=== PATIENT | female | born 1985 | race Caucasian/White ===

== ENCOUNTER 2017-01-27 11:09 | Emergency (ER) | payer SELFPAY ==
--- NOTE | 2017-01-27 12:00 | XRay Report ---
AP CHEST: HISTORY: Shortness of breath Limited exam with poor penetration. AP view of the chest demonstrates a normal mediastinal and cardiac contour with clear lungs and normal bony and soft tissue structures. IMPRESSION: Unremarkable AP chest.
[2017-01-27 12:07] LABS: Basophils % (Auto) 0.5 % (0.0-1.8); Eosinophils % (Auto) 1.9 % (0.0-4.3); Hematocrit 34.2 % (30.3-42.9); Hemoglobin 10.7 gm/dl (10.1-14.3); Mean Corpuscular HGB Conc 31 % (30-34); Mean Corpuscular Volume 73 fl (79-97); Platelet Count 308 K/mm3 (140-440); Red Blood Count 4.69 M/mm3 (3.65-5.03); Red Cell Distribution Width 18.7 % (13.2-15.2)
[2017-01-27 12:15] LABS: Anion Gap 17 mmol/L; Blood Urea Nitrogen 9 mg/dL (7-17); Calcium 8.8 mg/dL (8.4-10.2); Carbon Dioxide 26 mmol/L (22-30); Chloride 99.1 mmol/L (98-107); Glucose 117 mg/dL (65-100); Sodium 138 mmol/L (137-145)
[2017-01-27 12:19] LABS: Mean Corpuscular Hemoglobin 23 pg (28-32)
[2017-01-27] MEDS ORDERED: ASPIRIN PO ONE (12:20)
--- NOTE | 2017-01-27 12:20 | Emergency Department Report ---
ED Chest Pain HPI - General Chief Complaint: Chest Pain Stated Complaint: CHEST PAIN /ASTHMA Time Seen by Provider: 01/27/17 11:58 Source: patient Mode of arrival: Ambulatory Limitations: No Limitations - History of Present Illness MD Complaint: chest pain -: Gradual Onset: during rest Pain Location: right chest Severity: mild Severity scale (0 -10): 6 Quality: aching Consistency: intermittent Improves With: nothing, movement Worsens With: movement Context: other re: dyspnea Treatments Prior to Arrival: none Aspirin use within the Past 7 Days: (0) No - Related Data Previous Rx's Medication Instructions Recorded Last Taken Type ALBUTEROL NEB's [Proventil 0.083% 2.5 mg PO Q6HR PRN #90 nebu 01/27/17 Unknown Rx NEBS] Aspirin [Aspirin TAB] 325 mg PO ONCE #30 tablet 01/27/17 Unknown Rx Hydrochlorothiazide [HCTZ] 25 mg PO QDAY #30 tablet 01/27/17 Unknown Rx Allergies Allergy/AdvReac Type Severity Reaction Status Date / Time No Known Allergies Allergy Unverified 01/27/17 11:17 Heart Score - HEART Score History: Slightly suspicious EKG: Non-specific Age: < 45 Risk factors: 1-2 risk factors Troponin: < normal limit HEART Score: 2 - Critical Actions Critical Actions: 0-3 pts:0.9-1.7%risk of adverse cardiac event.Candidate for discharge ED Review of Systems ROS: Stated complaint: CHEST PAIN /ASTHMA Other details as noted in HPI Constitutional: no symptoms reported Respiratory: shortness of breath, wheezing Cardiovascular: chest pain ED Past Medical Hx - Past Medical History Previous Medical History?: Yes Hx Asthma: Yes Additional medical history: Morbid obesity - Surgical History Past Surgical History?: No - Social History Smoking Status: Never Smoker Substance Use Type: Alcohol, Non Opiate Pain, Prescribed - Medications Home Medications: Home Medications Medication Instructions Recorded Confirmed Last Taken Type ALBUTEROL NEB's [Proventil 0.083% 2.5 mg PO Q6HR PRN #90 nebu 01/27/17 Unknown Rx NEBS] Aspirin [Aspirin TAB] 325 mg PO ONCE #30 tablet 01/27/17 Unknown Rx Hydrochlorothiazide [HCTZ] 25 mg PO QDAY #30 tablet 01/27/17 Unknown Rx ED Physical Exam - General Limitations: No Limitations General appearance: alert - Head Head exam: Present: atraumatic - Eye Eye exam: Present: normal appearance - ENT ENT exam: Present: normal exam, normal orophraynx, mucous membranes dry, mucous membranes moist - Neck Neck exam: Present: normal inspection - Respiratory Respiratory exam: Present: normal lung sounds bilaterally - Cardiovascular Cardiovascular Exam: Present: regular rate, normal rhythm - GI/Abdominal GI/Abdominal exam: Present: soft, normal bowel sounds - Back Exam Back exam: Present: normal inspection - Neurological Exam Neurological exam: Present: alert, altered, oriented X3 - Psychiatric Psychiatric exam: Present: normal affect, normal mood - Skin Skin exam: Present: warm, dry ED Course Vital Signs 01/27/17 01/27/17 01/27/17 11:17 11:23 11:31 Temperature 98.5 F Pulse Rate 96 H 84 102 H Respiratory 26 H 31 H 19 Rate Blood Pressure 194/110 151/98 Blood Pressure [Left] Blood Pressure [Right] O2 Sat by Pulse 94 96 Oximetry 01/27/17 01/27/17 01/27/17 11:41 11:46 11:54 Temperature 98.4 F Pulse Rate 100 H 95 H Respiratory 29 H 16 12 Rate Blood Pressure 149/89 Blood Pressure 151/90 151/90 [Left] Blood Pressure 149/89 [Right] O2 Sat by Pulse 96 100 97 Oximetry 01/27/17 01/27/17 01/27/17 11:55 12:08 14:16 Temperature 98.1 F 98.4 F Pulse Rate 88 88 Respiratory 18 16 18 Rate Blood Pressure Blood Pressure [Left] Blood Pressure 138/74 139/87 [Right] O2 Sat by Pulse 96 99 97 Oximetry ED Medical Decision Making - Lab Data Result diagrams: 01/27/17 11:44 01/27/17 11:44 Critical care attestation.: If time is entered above; I have spent that time in minutes in the direct care of this critically ill patient, excluding procedure time. ED Disposition Clinical Impression: Chest pain not due to acute coronary syndrome, Asthma Disposition: - TO HOME OR SELFCARE Is pt being admited?: No Does the pt Need Aspirin: No Condition: Stable Instructions: Chest Pain (ED), Asthma (ED) Prescriptions: ALBUTEROL NEB's [Proventil 0.083% NEBS] 2.5 mg PO Q6HR PRN #90 nebu PRN Reason: Wheezing Aspirin [Aspirin TAB] 325 mg PO ONCE #30 tablet Hydrochlorothiazide [HCTZ] 25 mg PO QDAY #30 tablet Referrals: PRIMARY CARE,MD [Primary Care Provider] - 3-5 Days Forms: Work/School Release Form(ED)
[2017-01-27] MEDS ORDERED: PROVENTIL IH ONE (14:22)
[2017-01-27 15:16] VITALS: BP 137/84
--- NOTE | 2017-01-28 11:56 | Vascular Lab Report ---
LOWER EXTREMITY VENOUS DUPLEX: REASON FOR EXAM: Shortness of breath/chest pain. COMMENTS ON THE RIGHT: All veins visualized are freely compressible without evidence of internal echogenicity. Flow is spontaneous and phasic throughout. COMMENTS ON THE LEFT: All veins visualized are freely compressible without evidence of internal echogenicity. Flow is spontaneous and phasic throughout. IMPRESSION: No evidence of acute or chronic deep venous thrombosis in either lower extremity.
== END 2017-01-27 15:12 | disposition home or self-care (01) ==
LOC: ED 11:09
DX: R07.9 Chest pain, unspecified (principal); J45.909 Unspecified asthma, uncomplicated; E66.01 Morbid (severe) obesity due to excess calories
CPT/HCPCS: 36415; 71010; 80048; 83880; 84484; 85025; 93005; 93010; 93970; 94640; 99284

== ENCOUNTER 2017-04-25 09:41 | Emergency (ER) | payer OTHER ==
[2017-04-25 10:21] LABS: Basophils % (Auto) 0.2 % (0.0-1.8); Eosinophils % (Auto) 2.7 % (0.0-4.3); Hematocrit 36.9 % (30.3-42.9); Hemoglobin 11.6 gm/dl (10.1-14.3); Mean Corpuscular HGB Conc 31 % (30-34); Mean Corpuscular Hemoglobin 22 pg (28-32); Mean Corpuscular Volume 70 fl (79-97); Platelet Count 287 K/mm3 (140-440); Red Blood Count 5.27 M/mm3 (3.65-5.03); Red Cell Distribution Width 19.4 % (13.2-15.2); White Blood Count 9.5 K/mm3 (4.5-11.0)
[2017-04-25] MEDS ORDERED: DELTASONE PO ONE (10:29)
[2017-04-25] MEDS ORDERED: PROVENTIL IH ONE ×2 (10:29→13:09)
[2017-04-25] MEDS ORDERED: ATROVENT IH ONE (10:29)
--- NOTE | 2017-04-25 10:31 | Emergency Department Report ---
HPI - General Chief Complaint: Dyspnea/Respdistress Time Seen by Provider: 04/25/17 10:14 - HPI HPI: This is a 31-year-old -[place] female presents to the emergency department, being brought in by her significant other, with a complaint of a 2- 3 day history of "it's my asthma." She feels that whenever there is a weather change that is what affects her asthma. She complains of some wheezing, shortness of breath and a mixed dry and productive cough over the past few days , over the weekend. She tried her albuterol nebulized treatments did not feel like she was giving sufficient relief. She denies any chest pain, fever, back pain, nausea, vomiting or diaphoresis. She denies any tobacco use or illicit drug abuse. No recent travel or sick contacts at home. She does not have a primary care physician. ED Past Medical Hx - Past Medical History Hx Asthma: Yes - Surgical History Past Surgical History?: No - Social History Smoking Status: Never Smoker Substance Use Type: None - Medications Home Medications: Home Medications Medication Instructions Recorded Confirmed Last Taken Type ALBUTEROL Inhaler [ProAir HFA 2 puff IH QID PRN #1 inhalation 04/25/17 Unknown Rx Inhaler] ALBUTEROL NEB's [Proventil 0.083% 2.5 mg IH Q4H PRN #1 box 04/25/17 Unknown Rx NEBS] predniSONE [Deltasone] 20 mg PO BID #10 tab 04/25/17 Unknown Rx ED Review of Systems ROS: Stated complaint: SOB Other details as noted in HPI Comment: All other systems reviewed and negative Constitutional: denies: chills, fever Eyes: denies: eye pain, eye discharge, vision change ENT: denies: ear pain, throat pain Respiratory: cough, shortness of breath, wheezing Cardiovascular: denies: chest pain, palpitations Gastrointestinal: denies: abdominal pain, nausea, diarrhea Genitourinary: denies: urgency, dysuria, discharge Musculoskeletal: denies: back pain, joint swelling, arthralgia Skin: denies: rash, lesions Neurological: denies: headache, weakness, paresthesias Physical Exam - Physical Exam Vital Signs: Vital Signs 04/25/17 09:47 Temperature 97.9 F Pulse Rate 90 Respiratory 22 Rate Blood Pressure 144/109 O2 Sat by Pulse 94 Oximetry Physical Exam: GENERAL: The patient is well-developed well-nourished. HENT: Normocephalic. Atraumatic. Patient has moist mucous membranes. EYES: Extraocular motions are intact. Pupils equal reactive to light bilaterally. NECK: Supple. Trachea is midline. CHEST/LUNGS: Moderate wheezing throughout the chest. No tachypnea or accessory muscle use. No cough heard during examination. There is no respiratory distress noted. HEART/CARDIOVASCULAR: Regular. There is no tachycardia. There is no gallop rub or murmur. ABDOMEN: Abdomen is soft, nontender. Patient has normal bowel sounds. There is no abdominal distention. Morbidly obese habitus. SKIN: Skin is warm and dry. NEURO: The patient is awake, alert, and oriented. The patient is cooperative. The patient has no focal neurologic deficits. The patient has normal speech. MUSCULOSKELETAL: There is no tenderness or deformity. There is no limitation range of motion. There is no evidence of acute injury. ED Course Vital Signs 04/25/17 09:47 Temperature 97.9 F Pulse Rate 90 Respiratory 22 Rate Blood Pressure 144/109 O2 Sat by Pulse 94 Oximetry ED Medical Decision Making - Lab Data Result diagrams: 04/25/17 09:56 04/25/17 09:56 - Radiology Data Radiology results: image reviewed interpreted by me: Chest x-ray does not show any acute process. There are no pleural effusions, obvious pneumonia and there is no pneumothorax. - Medical Decision Making 31 year female presents with a few days of shortness breath, cough and wheezing that she believes is her asthma. She does have moderate wheezing and bronchospasm when she first arrived. She was given a few different breathing treatments, steroids and prior to discharge she appears much improved. Chest x- ray did not show any pneumonia, pleural effusions or any acute process. Labs are unremarkable. Vital signs stable throughout her ED course including being afebrile and no hypoxia. She was discharged home with steroids, refill of her albuterol and referral to primary care. She will return to the ER with any worsening of her symptoms or any acute distress. - Differential Diagnosis asthma, COPD, pneumonia, CHF Critical Care Time: No Critical care attestation.: If time is entered above; I have spent that time in minutes in the direct care of this critically ill patient, excluding procedure time. ED Disposition Clinical Impression: Bronchospasm Asthma exacerbation Qualifiers: Asthma severity: unspecified severity Asthma persistence: unspecified Qualified Code(s): J45.901 - Unspecified asthma with (acute) exacerbation Disposition: DC- TO HOME OR SELFCARE Is pt being admited?: No Condition: Stable Instructions: Asthma (ED), Bronchospasm (ED) Additional Instructions: Please follow up with a primary care physician in the next few days. Return to the emergency Department with any worsening of your symptoms or any acute distress. Prescriptions: ALBUTEROL Inhaler [ProAir HFA Inhaler] 2 puff IH QID PRN #1 inhalation PRN Reason: Shortness Of Breath ALBUTEROL NEB's [Proventil 0.083% NEBS] 2.5 mg IH Q4H PRN #1 box PRN Reason: Wheezing predniSONE [Deltasone] 20 mg PO BID #10 tab Referrals: PRIMARY CAREMD [Primary Care Provider] - 3-5 Days VICKIE CORTES MD [Staff Physician] - 3-5 Days [facility] [Outside] - 3-5 Days [facility] [Outside] - 3-5 Days Time of Disposition: 15:18
--- NOTE | 2017-04-25 10:43 | XRay Report ---
ROUTINE CHEST, TWO VIEWS: HISTORY: Shortness of breath. The trachea, heart, mediastinal contour, lung wynne and bony thorax are unremarkable. IMPRESSION: Unremarkable chest x-ray.
[2017-04-25 10:48] LABS: Anion Gap 19 mmol/L; BUN/Creatinine Ratio 22; Blood Urea Nitrogen 11 mg/dL (7-17); Calcium 9.4 mg/dL (8.4-10.2); Carbon Dioxide 27 mmol/L (22-30); Chloride 98.1 mmol/L (98-107); Glucose 113 mg/dL (65-100); Potassium 4.9 mmol/L (3.6-5.0); Sodium 139 mmol/L (137-145)
[2017-04-25] MEDS ORDERED: NORCO 5/325 PO ONE (14:06)
[2017-04-25 15:34] VITALS: BP 138/88
== END 2017-04-25 15:33 | disposition home or self-care (01) ==
LOC: ED 09:41 → MERGE 09:41 → ED 15:34
DX: J45.901 Unspecified asthma with (acute) exacerbation (principal)
CPT/HCPCS: 36415; 71020; 80048; 84484; 84703; 85025; 94640; 99284; J7512

== ENCOUNTER 2017-06-25 12:41 | Inpatient (IN) | payer SELFPAY ==
[2017-06-25] MEDS: DUONEB *Not for PRN Use IH SCH ×2 (13:15→21:27)
[2017-06-25] MEDS ORDERED: PROVENTIL IH PRN ×2 (13:17→21:37)
[2017-06-25 13:29] LABS: Hematocrit 36.1 % (30.3-42.9); Hemoglobin 11.2 gm/dl (10.1-14.3); Mean Corpuscular HGB Conc 31 % (30-34); Mean Corpuscular Volume 71 fl (79-97); Platelet Count 246 K/mm3 (140-440); Red Blood Count 5.11 M/mm3 (3.65-5.03); Red Cell Distribution Width 19.3 % (13.2-15.2); White Blood Count 10.3 K/mm3 (4.5-11.0)
[2017-06-25 13:37] LABS: Mean Corpuscular Hemoglobin 22 pg (28-32)
[2017-06-25 14:11] LABS: Anion Gap 19 mmol/L; BUN/Creatinine Ratio 18; Blood Urea Nitrogen 9 mg/dL (7-17); Calcium 8.4 mg/dL (8.4-10.2); Carbon Dioxide 26 mmol/L (22-30); Glucose 134 mg/dL (65-100); Potassium 4.5 mmol/L (3.6-5.0); Sodium 138 mmol/L (137-145)
[2017-06-25] MEDS ORDERED: MAGNESIUM SULFATE 2GM/50ML 2 GM/50 ML BAG IV ONE ×2 (15:14→18:00)
[2017-06-25 15:26] LABS: Anisocytosis 1+; Basophils % (Manual) 0 % (0.0-1.8); Blastocytes % (Manual) 0 %; Eosinophils % (Manual) 0 % (0.0-4.3); Hypochromasia 2+; Large Platelets 1+; Ovalocytes 1+; Platelet Estimate Consistent w Auto
[2017-06-25 15:27] LABS: Diff Status Complete
[2017-06-25] MEDS ORDERED: ROCEPHIN/NS 1 GM/50 ML 1 GM/50 ML BAG IV ONE (15:46)
[2017-06-25] MEDS ORDERED: XOPENEX IH ONE (16:19)
--- NOTE | 2017-06-25 16:21 | Emergency Department Report ---
ED Shortness of Breath HPI - General Chief Complaint: Dyspnea/Respdistress Stated Complaint: ASTHMA/CP/SOB Time Seen by Provider: 06/25/17 14:56 Source: patient Mode of arrival: Wheelchair Limitations: No Limitations - History of Present Illness Initial Comments: 31-year-old female with a past medical history of asthma and obesity presents to the hospital complaints of cough, fever, shortness of breath and wheezing 4 days which acutely worsened just today. No improvement with nebulized treatments. Positive generalized body aches and chest pain associated with coughing that is moderate in intensity. Symptoms with exertion with no alleviating factors - Related Data Previous Rx's Medication Instructions Recorded Last Taken Type ALBUTEROL NEB's [Proventil 0.083% 2.5 mg PO Q6HR PRN #90 nebu 01/27/17 Unknown Rx NEBS] Aspirin [Aspirin TAB] 325 mg PO ONCE #30 tablet 01/27/17 Unknown Rx Hydrochlorothiazide [HCTZ] 25 mg PO QDAY #30 tablet 01/27/17 Unknown Rx ALBUTEROL Inhaler [ProAir HFA 2 puff IH QID PRN #1 inhalation 04/25/17 Unknown Rx Inhaler] ALBUTEROL NEB's [Proventil 0.083% 2.5 mg IH Q4H PRN #1 box 04/25/17 Unknown Rx NEBS] predniSONE [Deltasone] 20 mg PO BID #10 tab 04/25/17 Unknown Rx Allergies Allergy/AdvReac Type Severity Reaction Status Date / Time No Known Allergies Allergy Unverified 01/27/17 11:17 ED Review of Systems ROS: Stated complaint: ASTHMA/CP/SOB Other details as noted in HPI Comment: All other systems reviewed and negative Other: Constitutional: As per HPI Eyes: No eye pain visual changes or discharge ENT: No ear pain or throat pain Neck: Denies pain Respiratory: As per HPI Cardiovascular: Denies syncope GI: Denies abdominal pain, nausea, vomiting, diarrhea : Denies dysuria Musculoskeletal: Denies back pain, joint swelling Skin: Denies rash, lesions, erythema Neurologic: Denies headache, numbness, weakness Psychiatric: Denies suicidal ideation, hallucinations ED Past Medical Hx - Past Medical History Hx Asthma: Yes Additional medical history: Morbid obesity - Social History Smoking Status: Never Smoker Substance Use Type: None - Medications Home Medications: Home Medications Medication Instructions Recorded Confirmed Last Taken Type ALBUTEROL NEB's [Proventil 0.083% 2.5 mg PO Q6HR PRN #90 nebu 01/27/17 Unknown Rx NEBS] Aspirin [Aspirin TAB] 325 mg PO ONCE #30 tablet 01/27/17 Unknown Rx Hydrochlorothiazide [HCTZ] 25 mg PO QDAY #30 tablet 01/27/17 Unknown Rx ALBUTEROL Inhaler [ProAir HFA 2 puff IH QID PRN #1 inhalation 04/25/17 Unknown Rx Inhaler] ALBUTEROL NEB's [Proventil 0.083% 2.5 mg IH Q4H PRN #1 box 04/25/17 Unknown Rx NEBS] predniSONE [Deltasone] 20 mg PO BID #10 tab 04/25/17 Unknown Rx ED Physical Exam - General Limitations: No Limitations - Other Other exam information: General: No limitations, patient is alert in no acute distress Head exam: Atraumatic, normocephalic Eyes exam: Normal appearance ENT: Moist mucous membrane, normal oropharynx Neck exam: Normal inspection, full range of motion Respiratory exam: Bilateral wheezing, accessory muscle use, positive tachypnea Cardiovascular: Tachycardic regular rhythm Abdomen: Soft, nondistended, and nontender, with normal bowel sounds, no rebound, or guarding Extremity: Full range of motion normal inspection no deformity, and Back: Normal Inspection, full range of motion, no tenderness Neurologic: Alert, oriented x3, cranial nerves intact, no motor or sensory deficit Psychiatric: normal affect, normal mood Skin: Warm, dry, intact ED Course Vital Signs 06/25/17 06/25/17 06/25/17 12:58 13:00 13:15 Temperature 97.8 F 97.8 F Pulse Rate 123 H Pulse Rate [ 111 H Anterior Bilateral Throughout] Respiratory 22 Rate Respiratory 22 Rate [Anterior Bilateral Throughout] Blood Pressure 135/84 [Right] O2 Sat by Pulse 82 L Oximetry 06/25/17 06/25/17 06/25/17 13:25 13:40 14:05 Temperature Pulse Rate Pulse Rate [ 108 H 108 H 105 H Anterior Bilateral Throughout] Respiratory Rate Respiratory 20 20 18 Rate [Anterior Bilateral Throughout] Blood Pressure [Right] O2 Sat by Pulse Oximetry 06/25/17 06/25/17 16:20 16:35 Temperature Pulse Rate Pulse Rate [ 106 H 107 H Anterior Bilateral Throughout] Respiratory Rate Respiratory 18 18 Rate [Anterior Bilateral Throughout] Blood Pressure [Right] O2 Sat by Pulse Oximetry - Reevaluation(s) Reevaluation #1: 06/25/17 Patient received multiple nebs, albuterol, and Solu-Medrol in the ED without improvement. IV antibiotics initiated for possible infiltrate - ABG Interpretation Ph: 7.36 PCO2: 49 PO2: 66 Bicarbonate: 28 Interpretation: other (hypoxia) Additional Comments: ABG performed on 4 L nasal cannula ED Medical Decision Making - Lab Data Result diagrams: 06/25/17 13:11 06/25/17 13:11 Lab Results 06/25/17 06/25/17 06/25/17 Range/Units 13:11 13:11 15:45 WBC 10.3 (4.5-11.0) K/mm3 RBC 5.11 H (3.65-5.03) M/mm3 Hgb 11.2 (10.1-14.3) gm/dl Hct 36.1 (30.3-42.9) % MCV 71 L (79-97) fl MCH 22 L (28-32) pg MCHC 31 (30-34) % RDW 19.3 H (13.2-15.2) % Plt Count 246 (140-440) K/mm3 Add Manual Diff Complete Total Counted 100 Seg Neuts % (Manual) 78.0 H (40.0-70.0) % Band Neutrophils % 0 % Lymphocytes % (Manual) 15.0 (13.4-35.0) % Reactive Lymphs % (Man) 0 % Monocytes % (Manual) 7.0 (0.0-7.3) % Eosinophils % (Manual) 0 (0.0-4.3) % Basophils % (Manual) 0 (0.0-1.8) % Metamyelocytes % 0 % Myelocytes % 0 % Promyelocytes % 0 % Blast Cells % 0 % Nucleated RBC % Not Reportable Seg Neutrophils # Man 8.0 H (1.8-7.7) K/mm3 Band Neutrophils # 0.0 K/mm3 Lymphocytes # (Manual) 1.5 (1.2-5.4) K/mm3 Abs React Lymphs (Man) 0.0 K/mm3 Monocytes # (Manual) 0.7 (0.0-0.8) K/mm3 Eosinophils # (Manual) 0.0 (0.0-0.4) K/mm3 Basophils # (Manual) 0.0 (0.0-0.1) K/mm3 Metamyelocytes # 0.0 K/mm3 Myelocytes # 0.0 K/mm3 Promyelocytes # 0.0 K/mm3 Blast Cells # 0.0 K/mm3 WBC Morphology Not Reportable Hypersegmented Neuts Not Reportable Hyposegmented Neuts Not Reportable Hypogranular Neuts Not Reportable Smudge Cells Not Reportable Toxic Granulation Not Reportable Toxic Vacuolation Not Reportable Dohle Bodies Not Reportable Pelger-Huet Anomaly Not Reportable Ana Cristina Rods Not Reportable Platelet Estimate Consistent w auto Clumped Platelets Not Reportable Plt Clumps, EDTA Not Reportable Large Platelets 1+ Giant Platelets Not Reportable Platelet Satelliting Not Reportable Plt Morphology Comment Not Reportable RBC Morphology Not Reportable Dimorphic RBCs Not Reportable Polychromasia Not Reportable Hypochromasia 2+ Poikilocytosis Not Reportable Anisocytosis 1+ Microcytosis Not Reportable Macrocytosis Not Reportable Spherocytes Not Reportable Pappenheimer Bodies Not Reportable Sickle Cells Not Reportable Target Cells Not Reportable Tear Drop Cells Not Reportable Ovalocytes 1+ Helmet Cells Not Reportable [place] Bodies Not Reportable [place] Rings Not Reportable [place] Cells Not Reportable Bite Cells Not Reportable Crenated Cell Not Reportable Elliptocytes Not Reportable Acanthocytes (Spur) Not Reportable Rouleaux Not Reportable Hemoglobin C Crystals Not Reportable Schistocytes Not Reportable Malaria parasites Not Reportable Tyshawn Bodies Not Reportable Hem Pathologist Commnt No POC ABG pH (7.35-7.45) POC ABG pCO2 (35-45) POC ABG pO2 (80-105) POC ABG HCO3 POC ABG Total CO2 POC ABG O2 Sat POC ABG Base Excess FiO2 % Sodium 138 (137-145) mmol/L Potassium 4.5 (3.6-5.0) mmol/L Chloride 98.0 (98-107) mmol/L Carbon Dioxide 26 (22-30) mmol/L Anion Gap 19 mmol/L BUN 9 (7-17) mg/dL Creatinine 0.5 L (0.7-1.2) mg/dL Estimated GFR > 60 ml/min BUN/Creatinine Ratio 18 % Glucose 134 H (65-100) mg/dL Calcium 8.4 (8.4-10.2) mg/dL NT-Pro-B Natriuret Pep 1693 H (0-450) pg/mL Urine Color (Yellow) Urine Turbidity (Clear) Urine pH (5.0-7.0) Ur Specific [place] (1.003-1.030) Urine Protein (Negative) mg/dL Urine Glucose (UA) (Negative) mg/dL Urine Ketones (Negative) mg/dL Urine Blood (Negative) Urine Nitrite (Negative) Ur Reducing Substances Urine Bilirubin (Negative) Urine Ictotest Urine Urobilinogen (<2.0) mg/dL Ur Leukocyte Esterase (Negative) Urine WBC (Auto) (0.0-6.0) /HPF Urine RBC (Auto) (0.0-6.0) /HPF U Epithel Cells (Auto) (0-13.0) /HPF Urine HCG, Qual (Negative) 06/25/17 06/25/17 Range/Units 16:00 16:19 WBC (4.5-11.0) K/mm3 RBC (3.65-5.03) M/mm3 Hgb (10.1-14.3) gm/dl Hct (30.3-42.9) % MCV (79-97) fl MCH (28-32) pg MCHC (30-34) % RDW (13.2-15.2) % Plt Count (140-440) K/mm3 Add Manual Diff Total Counted Seg Neuts % (Manual) (40.0-70.0) % Band Neutrophils % % Lymphocytes % (Manual) (13.4-35.0) % Reactive Lymphs % (Man) % Monocytes % (Manual) (0.0-7.3) % Eosinophils % (Manual) (0.0-4.3) % Basophils % (Manual) (0.0-1.8) % Metamyelocytes % % Myelocytes % % Promyelocytes % % Blast Cells % % Nucleated RBC % Seg Neutrophils # Man (1.8-7.7) K/mm3 Band Neutrophils # K/mm3 Lymphocytes # (Manual) (1.2-5.4) K/mm3 Abs React Lymphs (Man) K/mm3 Monocytes # (Manual) (0.0-0.8) K/mm3 Eosinophils # (Manual) (0.0-0.4) K/mm3 Basophils # (Manual) (0.0-0.1) K/mm3 Metamyelocytes # K/mm3 Myelocytes # K/mm3 Promyelocytes # K/mm3 Blast Cells # K/mm3 WBC Morphology Hypersegmented Neuts Hyposegmented Neuts Hypogranular Neuts Smudge Cells Toxic Granulation Toxic Vacuolation Dohle Bodies Pelger-Huet Anomaly Ana Cristina Rods Platelet Estimate Clumped Platelets Plt Clumps, EDTA Large Platelets Giant Platelets Platelet Satelliting Plt Morphology Comment RBC Morphology Dimorphic RBCs Polychromasia Hypochromasia Poikilocytosis Anisocytosis Microcytosis Macrocytosis Spherocytes Pappenheimer Bodies Sickle Cells Target Cells Tear Drop Cells Ovalocytes Helmet Cells [place] Bodies [place] Rings [place] Cells Bite Cells Crenated Cell Elliptocytes Acanthocytes (Spur) Rouleaux Hemoglobin C Crystals Schistocytes Malaria parasites Tyshawn Bodies Hem Pathologist Commnt POC ABG pH 7.365 (7.35-7.45) POC ABG pCO2 49.9 H (35-45) POC ABG pO2 66 L (80-105) POC ABG HCO3 28.5 POC ABG Total CO2 30 POC ABG O2 Sat 92 POC ABG Base Excess 3 FiO2 4 % Sodium (137-145) mmol/L Potassium (3.6-5.0) mmol/L Chloride (98-107) mmol/L Carbon Dioxide (22-30) mmol/L Anion Gap mmol/L BUN (7-17) mg/dL Creatinine (0.7-1.2) mg/dL Estimated GFR ml/min BUN/Creatinine Ratio % Glucose (65-100) mg/dL Calcium (8.4-10.2) mg/dL NT-Pro-B Natriuret Pep (0-450) pg/mL Urine Color Straw (Yellow) Urine Turbidity Clear (Clear) Urine pH 6.0 (5.0-7.0) Ur Specific [place] 1.001 L (1.003-1.030) Urine Protein <15 mg/dl (Negative) mg/dL Urine Glucose (UA) Neg (Negative) mg/dL Urine Ketones Neg (Negative) mg/dL Urine Blood Sm (Negative) Urine Nitrite Neg (Negative) Ur Reducing Substances Not Reportable Urine Bilirubin Neg (Negative) Urine Ictotest Not Reportable Urine Urobilinogen < 2.0 (<2.0) mg/dL Ur Leukocyte Esterase Neg (Negative) Urine WBC (Auto) < 1.0 (0.0-6.0) /HPF Urine RBC (Auto) < 1.0 (0.0-6.0) /HPF U Epithel Cells (Auto) < 1.0 (0-13.0) /HPF Urine HCG, Qual Negative (Negative) - EKG Data -: EKG Interpreted by [place] EKG shows normal: sinus rhythm, axis (80), QRS complexes (75), ST-T waves ( inferior and flat lateral T waves) Rate: tachycardia (105) - EKG Data When compared to previous EKG there are: no significant change (compared to ) - Radiology Data Radiology results: report reviewed (chest x-ray read by radiologist: Suspicious for right lung base atelectasis or infiltrate) - Medical Decision Making Patient received treatment in ED for acute asthma exacerbation with associated community-acquired pneumonia. Patient is also hypoxic on room air in ABG was performed on 4 L of oxygen nasal - Differential Diagnosis pneumonia, bronchitis, PE, CHF, asthma Critical Care Time: No Critical care attestation.: If time is entered above; I have spent that time in minutes in the direct care of this critically ill patient, excluding procedure time. ED Disposition Clinical Impression: Pneumonia, Acute asthma, Morbid obesity, Hypoxia Disposition: OP ADMIT IP TO THIS HOSP Is pt being admited?: Yes Condition: Stable Time of Disposition: 16:20 (Dr Levy/hospitalist)
[2017-06-25 16:22] LABS: ISTAT Base Excess 3; ISTAT HCO3 28.5; ISTAT PCO2 49.9 (35-45); ISTAT PH 7.365 (7.35-7.45); ISTAT PO2 66 (80-105); ISTAT SO2 92; ISTAT TCO2 30
--- NOTE | 2017-06-25 16:26 | XRay Report ---
FINAL REPORT PROCEDURE: XR CHEST ROUTINE 2V TECHNIQUE: PA and lateral chest radiographs were obtained. CPT 06950 HISTORY: shortness of breath COMPARISON: No prior studies are available for comparison. FINDINGS: Study is limited by patient body habitus. The lateral view is significantly limited. On the AP view there is asymmetric opacification of the right lung base, which may be related to atelectasis or infiltrate. Cannot exclude a right pleural effusion. The upper lungs are well aerated. No pneumothorax is seen. IMPRESSION: Study is very limited, however findings are suspicious for right lung base atelectasis or infiltrate.
[2017-06-25 16:27] LABS: Bilirubin,Urine NEG (Negative); Blood,Urine SM (Negative); Ketones,Urine NEG (Negative); Leukocyte Esterase,Urine NEG (Negative); Nitrite,Urine NEG (Negative); Protein,Urine <15 mg/dL mg/dL (Negative); RBC,Urine < 1.0 /HPF (0.0-6.0); Urobilinogen,Urine < 2.0 mg/dL (<2.0); WBC,Urine < 1.0 /HPF (0.0-6.0)
[2017-06-25] MEDS ORDERED: ZITHROMAX 500 MG in NACL 0.9% 250ML 250 ML IV ONE (16:46)
[2017-06-25] MEDS: cefTRIAXone 1 GM in NACL 0.9% 20 ML IV ONE ×2 (17:52→18:31)
[2017-06-25] MEDS ORDERED: PROAIR IH PRN (21:37)
--- NOTE | 2017-06-25 21:37 | Event Note ---
Date: 06/25/17 See dictated H/p in reports Acute resp failure Asthma exacerbation Morbid obesity
[2017-06-25] MEDS ORDERED: TYLENOL PO PRN (21:40)
[2017-06-25] MEDS ORDERED: DULCOLAX PR PRN (21:40)
[2017-06-25] MEDS ORDERED: MILK OF MAGNESIA PO PRN (21:40)
[2017-06-25] MEDS ORDERED: PERCOCET 5/325 PO PRN (21:40)
[2017-06-25] MEDS ORDERED: ZOFRAN IV PRN (21:40)
[2017-06-25] MEDS ORDERED: MORPHINE IV PRN (21:40)
[2017-06-25] MEDS ORDERED: ASPIRIN PO SCH (22:00)
[2017-06-25] MEDS ORDERED: ROCEPHIN/NS 2 GM/100 ML 2 GM/100 ML BAG IV SCH (22:00)
[2017-06-25] MEDS: HCTZ PO SCH (23:22)
[2017-06-25] MEDS: PEPCID PO SCH (23:23)
[2017-06-25] MEDS: ZITHROMAX 500 MG in NACL 0.9% 250ML 250 ML IV SCH (23:56)
[2017-06-26] MEDS ORDERED: PROVENTIL IH SCH
[2017-06-26 06:26] LABS: Basophils % (Auto) 0.2 % (0.0-1.8); Mean Corpuscular HGB Conc 31 % (30-34); Mean Corpuscular Hemoglobin 22 pg (28-32); Mean Corpuscular Volume 72 fl (79-97); Platelet Count 291 K/mm3 (140-440); Red Blood Count 5.03 M/mm3 (3.65-5.03); Red Cell Distribution Width 19.5 % (13.2-15.2); White Blood Count 12.3 K/mm3 (4.5-11.0)
[2017-06-26 06:38] LABS: Alanine Aminotransferase 40 units/L (7-56); Albumin 3.8 g/dL (3.9-5); Albumin/Globulin Ratio 0.8 %; Alkaline Phosphatase 77 units/L (35-129); Anion Gap 17 mmol/L; BUN/Creatinine Ratio 20; Blood Urea Nitrogen 8 mg/dL (7-17); Calcium 8.8 mg/dL (8.4-10.2); Carbon Dioxide 29 mmol/L (22-30); Chloride 97.4 mmol/L (98-107); Glucose 158 mg/dL (65-100); Potassium 4.6 mmol/L (3.6-5.0); Sodium 139 mmol/L (137-145); Total Protein 8.6 g/dL (6.3-8.2)
--- NOTE | 2017-06-26 07:27 | History and Physical Report ---
CHIEF COMPLAINT: Persistent shortness of breath for 4 days. HISTORY OF PRESENT ILLNESS: The patient is a 31-year-old -[place] female with history of asthma who has been having persistent wheezing and shortness of breath for the last 4 days. Cough productive of mucoid sputum. The patient also has generalized body aches. Shortness of breath and wheezing not relieved by home nebulizer machine and treatments. The patient also was treated with multiple nebulizer treatments in the ER with no relief. Hence, the patient being admitted. PAST MEDICAL HISTORY: As mentioned asthma. PAST SURGICAL HISTORY: None. SOCIAL HISTORY: Does not smoke. No alcohol. Obesity present. FAMILY HISTORY: Hypertension. CURRENT MEDICATIONS: Albuterol inhaler and nebulizers. Prednisone 20 mg twice a day. Aspirin 325 once a day. Hydrochlorothiazide 325 once a day. REVIEW OF SYSTEMS: Significant for severe wheezing and shortness of breath, not relieved by the regular nebulizer treatments. Otherwise, review of systems negative. A 14-point review of systems done. EMERGENCY ROOM COURSE: The patient was given multiple breathing treatments with no relief. Hence, the patient being admitted. PHYSICAL EXAMINATION: GENERAL: Young female, obese, cooperative during examination. VITAL SIGNS: Blood pressure is 137/95, temperature is 97.5, pulse is 103, respirations 22, sats are 87-95%. HEENT: Unremarkable. NECK: Accessory muscles of respiration are prominent. CHEST AND LUNGS: Bilateral inspiratory rhonchi present. Decreased air entry present. Persistent wheezing present. CARDIOVASCULAR: S1, S2 heard. No gallop, no murmur, no rub. Apical impulse in left fifth intercostal space and midclavicular line. ABDOMEN: Soft and benign. No hepatosplenomegaly. No guarding, no rigidity. Hernial orifices are normal. EXTREMITIES: Good pedal pulses. No pedal edema. CENTRAL NERVOUS SYSTEM: Alert and oriented x 4, nonfocal exam. SKIN: Normal. LABORATORY DATA: White count is 10,300, hemoglobin 11.2, hematocrit is 36.1, platelet count is 246,000. Electrolytes are normal. Sodium is 138 and glucose is slightly high at 134. ABG: pH of 7.365, pCO2 of 49.9, pO2 of 66, bicarbonate of 28.5. BNP 1693. Urine negative. Chest x-ray: RLL infiltrate ASSESSMENT AND PLAN: 1. Acute respiratory failure. The patient had O2 sats of 87% initially. Resolved to some extent after nebulizer treatments and steroids. Continue to treat with nebulizer treatments q. 6 round the clock and q. 3 hours p.r.n., IV Solu-Medrol at 60 mg q.8h. and also IV Levaquin 750 q.24h. 2. Acute asthma exacerbation. As mentioned, continue nebulizer treatments, Solu-Medrol, and Abx 3. RLL Pneumonia on CXR Patient initiated on Rocephin and Zithromax 4. Obesity, counseled. The patient has respiratory distress and hence full counseling was not done. 5. Deep venous thrombosis prophylaxis. Lovenox 40 mg subcutaneous daily. [facility]# [id number] IKER/FORTUNATO RED
[2017-06-26] MEDS: DUONEB *Not for PRN Use IH SCH ×3 (08:02→20:07)
[2017-06-26] MEDS: HCTZ PO SCH (11:00)
[2017-06-26] MEDS: PEPCID PO SCH ×2 (11:01→22:33)
[2017-06-26] MEDS: ZITHROMAX 500 MG in NACL 0.9% 250ML 250 ML IV SCH (11:11)
--- NOTE | 2017-06-26 13:09 | Progress Note ---
Assessment and Plan Assessment and plan: Patient is 31-year-old extremely obese woman BMI 66.2 with sequelae of health conditions such as sleep apnea noncompliant with CPAP, asthma who presents with acute shortness of breath with hypoxia pulse ox 87%. Chest x-ray shows right lower lobe infiltrates. -Acute hypoxic respiratory failure: Treated with oxygen -Acute asthma exacerbation: Treated with IV steroids and nebulizer treatments -Sepsis pneumonia, right lower lobe aspiration type: Treatment IV antibiotics -Extreme obesity BMI 66.2 with obesity hypoventilation syndrome suspected/sleep apnea: Counseling done, she says she is getting insurance next month and will reestablish care with physicians, consult dietitian -DVT prophylaxis: change lovenox to sq heparin due to weight History Interval history: Patient was seen and examined. Follow-up on current diagnosis. Overnight uneventful. Patient denies any chest pain, nausea/vomiting or severe headaches. Imaging, nursing note, chart, labs and old chart reviewed. Discussed with patient. Shortness breath is improved with oxygen. Patient doesn't have insurance so she hasn't seen a physician, she has sleep apnea but she doesn't have a CPAP machine because he has a follow-up because no physician Hospitalist Physical - Physical exam Narrative exam: GEN: Ill-appearing Morbid obese BMI 66.2 NAD, AWAKE, ALERT, ORIENTATED 3 HEENT: NCAT, EOMI, PERRL, OP Clear NECK: supple, no adenopathy, no thyromegaly, no JVD CVS/HEART: RRR, NORMAL S1S2, NO JVD, pulses present bilaterally CHEST/LUNGS: Bilateral rhonchi Symmetrical chest expansion, diminished entry bilaterally GI/Abdomen: soft, NTND, good bowel sounds, no guarding or rebound /Bladder: no suprapubic tenderness, no CVA or paraspinal tenderness EXT/Skin: no c/c/e, no obvious rash MSK: FROM x 4 Neuro: CN 2-12 grossly intact, no new focal deficits Psych: calm - Constitutional Vitals: Temp Pulse Resp BP Pulse Ox 97.6 F 100 H 18 131/36 95 06/26/17 12:20 06/26/17 12:20 06/26/17 12:20 06/26/17 12:20 06/26/17 12:20 Results - Labs CBC & Chem 7: 06/26/17 05:43 06/26/17 05:43 Labs: Laboratory Last Values WBC 12.3 K/mm3 (4.5-11.0) H 06/26/17 05:43 RBC 5.03 M/mm3 (3.65-5.03) 06/26/17 05:43 Hgb 11.0 gm/dl (10.1-14.3) 06/26/17 05:43 Hct 36.0 % (30.3-42.9) 06/26/17 05:43 MCV 72 fl (79-97) L 06/26/17 05:43 MCH 22 pg (28-32) L 06/26/17 05:43 MCHC 31 % (30-34) 06/26/17 05:43 RDW 19.5 % (13.2-15.2) H 06/26/17 05:43 Plt Count 291 K/mm3 (140-440) 06/26/17 05:43 Lymph % (Auto) 10.7 % (13.4-35.0) L 06/26/17 05:43 Hand % (Auto) 3.2 % (0.0-7.3) 06/26/17 05:43 Eos % (Auto) 0.0 % (0.0-4.3) 06/26/17 05:43 Baso % (Auto) 0.2 % (0.0-1.8) 06/26/17 05:43 Lymph # 1.3 K/mm3 (1.2-5.4) 06/26/17 05:43 Hand # 0.4 K/mm3 (0.0-0.8) 06/26/17 05:43 Eos # 0.0 K/mm3 (0.0-0.4) 06/26/17 05:43 Baso # 0.0 K/mm3 (0.0-0.1) 06/26/17 05:43 Add Manual Diff Complete 06/25/17 13:11 Total Counted 100 06/25/17 13:11 Seg Neutrophils % 85.9 % (40.0-70.0) H 06/26/17 05:43 Seg Neuts % (Manual) 78.0 % (40.0-70.0) H 06/25/17 13:11 Band Neutrophils % 0 % 06/25/17 13:11 Lymphocytes % (Manual) 15.0 % (13.4-35.0) 06/25/17 13:11 Reactive Lymphs % (Man) 0 % 06/25/17 13:11 Monocytes % (Manual) 7.0 % (0.0-7.3) 06/25/17 13:11 Eosinophils % (Manual) 0 % (0.0-4.3) 06/25/17 13:11 Basophils % (Manual) 0 % (0.0-1.8) 06/25/17 13:11 Metamyelocytes % 0 % 06/25/17 13:11 Myelocytes % 0 % 06/25/17 13:11 Promyelocytes % 0 % 06/25/17 13:11 Blast Cells % 0 % 06/25/17 13:11 Nucleated RBC % Not Reportable 06/25/17 13:11 Seg Neutrophils # 10.6 K/mm3 (1.8-7.7) H 06/26/17 05:43 Seg Neutrophils # Man 8.0 K/mm3 (1.8-7.7) H 06/25/17 13:11 Band Neutrophils # 0.0 K/mm3 06/25/17 13:11 Lymphocytes # (Manual) 1.5 K/mm3 (1.2-5.4) 06/25/17 13:11 Abs React Lymphs (Man) 0.0 K/mm3 06/25/17 13:11 Monocytes # (Manual) 0.7 K/mm3 (0.0-0.8) 06/25/17 13:11 Eosinophils # (Manual) 0.0 K/mm3 (0.0-0.4) 06/25/17 13:11 Basophils # (Manual) 0.0 K/mm3 (0.0-0.1) 06/25/17 13:11 Metamyelocytes # 0.0 K/mm3 06/25/17 13:11 Myelocytes # 0.0 K/mm3 06/25/17 13:11 Promyelocytes # 0.0 K/mm3 06/25/17 13:11 Blast Cells # 0.0 K/mm3 06/25/17 13:11 WBC Morphology Not Reportable 06/25/17 13:11 Hypersegmented Neuts Not Reportable 06/25/17 13:11 Hyposegmented Neuts Not Reportable 06/25/17 13:11 Hypogranular Neuts Not Reportable 06/25/17 13:11 Smudge Cells Not Reportable 06/25/17 13:11 Toxic Granulation Not Reportable 06/25/17 13:11 Toxic Vacuolation Not Reportable 06/25/17 13:11 Dohle Bodies Not Reportable 06/25/17 13:11 Pelger-Huet Anomaly Not Reportable 06/25/17 13:11 Ana Cristina Rods Not Reportable 06/25/17 13:11 Platelet Estimate Consistent w auto 06/25/17 13:11 Clumped Platelets Not Reportable 06/25/17 13:11 Plt Clumps, EDTA Not Reportable 06/25/17 13:11 Large Platelets 1+ 06/25/17 13:11 Giant Platelets Not Reportable 06/25/17 13:11 Platelet Satelliting Not Reportable 06/25/17 13:11 Plt Morphology Comment Not Reportable 06/25/17 13:11 RBC Morphology Not Reportable 06/25/17 13:11 Dimorphic RBCs Not Reportable 06/25/17 13:11 Polychromasia Not Reportable 06/25/17 13:11 Hypochromasia 2+ 06/25/17 13:11 Poikilocytosis Not Reportable 06/25/17 13:11 Anisocytosis 1+ 06/25/17 13:11 Microcytosis Not Reportable 06/25/17 13:11 Macrocytosis Not Reportable 06/25/17 13:11 Spherocytes Not Reportable 06/25/17 13:11 Pappenheimer Bodies Not Reportable 06/25/17 13:11 Sickle Cells Not Reportable 06/25/17 13:11 Target Cells Not Reportable 06/25/17 13:11 Tear Drop Cells Not Reportable 06/25/17 13:11 Ovalocytes 1+ 06/25/17 13:11 Helmet Cells Not Reportable 06/25/17 13:11 [place] Bodies Not Reportable 06/25/17 13:11 [place] Rings Not Reportable 06/25/17 13:11 [place] Cells Not Reportable 06/25/17 13:11 Bite Cells Not Reportable 06/25/17 13:11 Crenated Cell Not Reportable 06/25/17 13:11 Elliptocytes Not Reportable 06/25/17 13:11 Acanthocytes (Spur) Not Reportable 06/25/17 13:11 Rouleaux Not Reportable 06/25/17 13:11 Hemoglobin C Crystals Not Reportable 06/25/17 13:11 Schistocytes Not Reportable 06/25/17 13:11 Malaria parasites Not Reportable 06/25/17 13:11 Tyshawn Bodies Not Reportable 06/25/17 13:11 Hem Pathologist Commnt No 06/25/17 13:11 POC ABG pH 7.365 (7.35-7.45) 06/25/17 16:19 POC ABG pCO2 49.9 (35-45) H 06/25/17 16:19 POC ABG pO2 66 (80-105) L 06/25/17 16:19 POC ABG HCO3 28.5 06/25/17 16:19 POC ABG Total CO2 30 06/25/17 16:19 POC ABG O2 Sat 92 06/25/17 16:19 POC ABG Base Excess 3 06/25/17 16:19 FiO2 4 % 06/25/17 16:19 Sodium 139 mmol/L (137-145) 06/26/17 05:43 Potassium 4.6 mmol/L (3.6-5.0) 06/26/17 05:43 Chloride 97.4 mmol/L (98-107) L 06/26/17 05:43 Carbon Dioxide 29 mmol/L (22-30) 06/26/17 05:43 Anion Gap 17 mmol/L 06/26/17 05:43 BUN 8 mg/dL (7-17) 06/26/17 05:43 Creatinine 0.4 mg/dL (0.7-1.2) L 06/26/17 05:43 Estimated GFR > 60 ml/min 06/26/17 05:43 BUN/Creatinine Ratio 20 % 06/26/17 05:43 Glucose 158 mg/dL (65-100) H 06/26/17 05:43 Calcium 8.8 mg/dL (8.4-10.2) 06/26/17 05:43 Total Bilirubin 0.40 mg/dL (0.1-1.2) 06/26/17 05:43 AST 29 units/L (5-40) 06/26/17 05:43 ALT 40 units/L (7-56) 06/26/17 05:43 Alkaline Phosphatase 77 units/L (35-129) 06/26/17 05:43 NT-Pro-B Natriuret Pep 1693 pg/mL (0-450) H 06/25/17 15:45 Total Protein 8.6 g/dL (6.3-8.2) H 06/26/17 05:43 Albumin 3.8 g/dL (3.9-5) L 06/26/17 05:43 Albumin/Globulin Ratio 0.8 % 06/26/17 05:43 Urine Color Straw (Yellow) 06/25/17 16:00 Urine Turbidity Clear (Clear) 06/25/17 16:00 Urine pH 6.0 (5.0-7.0) 06/25/17 16:00 Ur Specific Guild 1.001 (1.003-1.030) L 06/25/17 16:00 Urine Protein <15 mg/dl mg/dL (Negative) 06/25/17 16:00 Urine Glucose (UA) Neg mg/dL (Negative) 06/25/17 16:00 Urine Ketones Neg mg/dL (Negative) 06/25/17 16:00 Urine Blood Sm (Negative) 06/25/17 16:00 Urine Nitrite Neg (Negative) 06/25/17 16:00 Ur Reducing Substances Not Reportable 06/25/17 16:00 Urine Bilirubin Neg (Negative) 06/25/17 16:00 Urine Ictotest Not Reportable 06/25/17 16:00 Urine Urobilinogen < 2.0 mg/dL (<2.0) 06/25/17 16:00 Ur Leukocyte Esterase Neg (Negative) 06/25/17 16:00 Urine WBC (Auto) < 1.0 /HPF (0.0-6.0) 06/25/17 16:00 Urine RBC (Auto) < 1.0 /HPF (0.0-6.0) 06/25/17 16:00 U Epithel Cells (Auto) < 1.0 /HPF (0-13.0) 06/25/17 16:00 Urine HCG, Qual Negative (Negative) 06/25/17 16:00
[2017-06-26] MEDS: cefTRIAXone 2 GM in NACL 0.9% 20 ML IV SCH (17:21)
[2017-06-26] MEDS ORDERED: LOVENOX SUB-Q SCH (22:00)
[2017-06-26] MEDS: HEPARIN SUB-Q SCH (22:31)
[2017-06-27] MEDS: HEPARIN SUB-Q SCH ×3 (06:37→21:30)
[2017-06-27] MEDS: DUONEB *Not for PRN Use IH SCH ×3 (09:21→19:15)
[2017-06-27] MEDS: HCTZ PO SCH (10:35)
[2017-06-27] MEDS: PEPCID PO SCH ×2 (10:35→21:30)
--- NOTE | 2017-06-27 11:36 | Progress Note ---
Assessment and Plan Assessment and plan: Patient is 31-year-old extremely obese woman BMI 66.2 with sequelae of health conditions such as sleep apnea noncompliant with CPAP, asthma who presents with acute shortness of breath with hypoxia pulse ox 87%. Chest x-ray shows right lower lobe infiltrates. -Acute hypoxic respiratory failure: Treated with oxygen -Acute asthma exacerbation: Treated with IV steroids and nebulizer treatments -Sepsis pneumonia, right lower lobe aspiration type: Treatment IV antibiotics -Extreme obesity BMI 66.2 with obesity hypoventilation syndrome suspected/sleep apnea: Counseling done, she says she is getting insurance next month and will reestablish care with physicians, consult dietitian -DVT prophylaxis: change lovenox to sq heparin due to weight Consult Pulmonology History Interval history: Patient was seen and examined. Follow-up on current diagnosis. Overnight uneventful. Patient denies any chest pain, nausea/vomiting or severe headaches. Imaging, nursing note, chart, labs and old chart reviewed. Discussed with patient. Shortness breath is improved with oxygen. Patient doesn't have insurance so she hasn't seen a physician, she has sleep apnea but she doesn't have a CPAP machine because he has a follow-up because no physician Hospitalist Physical - Physical exam Narrative exam: GEN: Ill-appearing Morbid obese BMI 67.4 NAD, AWAKE, ALERT, ORIENTATED 3 HEENT: NCAT, EOMI, PERRL, OP Clear NECK: supple, no adenopathy, no thyromegaly, no JVD CVS/HEART: RRR, NORMAL S1S2, NO JVD, pulses present bilaterally CHEST/LUNGS: Bilateral rhonchi Symmetrical chest expansion, diminished entry bilaterally GI/Abdomen: soft, NTND, good bowel sounds, no guarding or rebound /Bladder: no suprapubic tenderness, no CVA or paraspinal tenderness EXT/Skin: no c/c/e, no obvious rash MSK: FROM x 4 Neuro: CN 2-12 grossly intact, no new focal deficits Psych: calm - Constitutional Vitals: Temp Pulse Resp BP Pulse Ox 97.8 F 87 22 141/72 99 06/27/17 09:39 06/27/17 09:39 06/27/17 09:39 06/27/17 09:39 06/27/17 09:39 Results - Labs CBC & Chem 7: 06/26/17 05:43 06/26/17 05:43 Labs: Laboratory Last Values WBC 12.3 K/mm3 (4.5-11.0) H 06/26/17 05:43 RBC 5.03 M/mm3 (3.65-5.03) 06/26/17 05:43 Hgb 11.0 gm/dl (10.1-14.3) 06/26/17 05:43 Hct 36.0 % (30.3-42.9) 06/26/17 05:43 MCV 72 fl (79-97) L 06/26/17 05:43 MCH 22 pg (28-32) L 06/26/17 05:43 MCHC 31 % (30-34) 06/26/17 05:43 RDW 19.5 % (13.2-15.2) H 06/26/17 05:43 Plt Count 291 K/mm3 (140-440) 06/26/17 05:43 Lymph % (Auto) 10.7 % (13.4-35.0) L 06/26/17 05:43 [place] % (Auto) 3.2 % (0.0-7.3) 06/26/17 05:43 Eos % (Auto) 0.0 % (0.0-4.3) 06/26/17 05:43 Baso % (Auto) 0.2 % (0.0-1.8) 06/26/17 05:43 Lymph # 1.3 K/mm3 (1.2-5.4) 06/26/17 05:43 [place] # 0.4 K/mm3 (0.0-0.8) 06/26/17 05:43 Eos # 0.0 K/mm3 (0.0-0.4) 06/26/17 05:43 Baso # 0.0 K/mm3 (0.0-0.1) 06/26/17 05:43 Add Manual Diff Complete 06/25/17 13:11 Total Counted 100 06/25/17 13:11 Seg Neutrophils % 85.9 % (40.0-70.0) H 06/26/17 05:43 Seg Neuts % (Manual) 78.0 % (40.0-70.0) H 06/25/17 13:11 Band Neutrophils % 0 % 06/25/17 13:11 Lymphocytes % (Manual) 15.0 % (13.4-35.0) 06/25/17 13:11 Reactive Lymphs % (Man) 0 % 06/25/17 13:11 Monocytes % (Manual) 7.0 % (0.0-7.3) 06/25/17 13:11 Eosinophils % (Manual) 0 % (0.0-4.3) 06/25/17 13:11 Basophils % (Manual) 0 % (0.0-1.8) 06/25/17 13:11 Metamyelocytes % 0 % 06/25/17 13:11 Myelocytes % 0 % 06/25/17 13:11 Promyelocytes % 0 % 06/25/17 13:11 Blast Cells % 0 % 06/25/17 13:11 Nucleated RBC % Not Reportable 06/25/17 13:11 Seg Neutrophils # 10.6 K/mm3 (1.8-7.7) H 06/26/17 05:43 Seg Neutrophils # Man 8.0 K/mm3 (1.8-7.7) H 06/25/17 13:11 Band Neutrophils # 0.0 K/mm3 06/25/17 13:11 Lymphocytes # (Manual) 1.5 K/mm3 (1.2-5.4) 06/25/17 13:11 Abs React Lymphs (Man) 0.0 K/mm3 06/25/17 13:11 Monocytes # (Manual) 0.7 K/mm3 (0.0-0.8) 06/25/17 13:11 Eosinophils # (Manual) 0.0 K/mm3 (0.0-0.4) 06/25/17 13:11 Basophils # (Manual) 0.0 K/mm3 (0.0-0.1) 06/25/17 13:11 Metamyelocytes # 0.0 K/mm3 06/25/17 13:11 Myelocytes # 0.0 K/mm3 06/25/17 13:11 Promyelocytes # 0.0 K/mm3 06/25/17 13:11 Blast Cells # 0.0 K/mm3 06/25/17 13:11 WBC Morphology Not Reportable 06/25/17 13:11 Hypersegmented Neuts Not Reportable 06/25/17 13:11 Hyposegmented Neuts Not Reportable 06/25/17 13:11 Hypogranular Neuts Not Reportable 06/25/17 13:11 Smudge Cells Not Reportable 06/25/17 13:11 Toxic Granulation Not Reportable 06/25/17 13:11 Toxic Vacuolation Not Reportable 06/25/17 13:11 Dohle Bodies Not Reportable 06/25/17 13:11 Pelger-Huet Anomaly Not Reportable 06/25/17 13:11 Ana Cristina Rods Not Reportable 06/25/17 13:11 Platelet Estimate Consistent w auto 06/25/17 13:11 Clumped Platelets Not Reportable 06/25/17 13:11 Plt Clumps, EDTA Not Reportable 06/25/17 13:11 Large Platelets 1+ 06/25/17 13:11 Giant Platelets Not Reportable 06/25/17 13:11 Platelet Satelliting Not Reportable 06/25/17 13:11 Plt Morphology Comment Not Reportable 06/25/17 13:11 RBC Morphology Not Reportable 06/25/17 13:11 Dimorphic RBCs Not Reportable 06/25/17 13:11 Polychromasia Not Reportable 06/25/17 13:11 Hypochromasia 2+ 06/25/17 13:11 Poikilocytosis Not Reportable 06/25/17 13:11 Anisocytosis 1+ 06/25/17 13:11 Microcytosis Not Reportable 06/25/17 13:11 Macrocytosis Not Reportable 06/25/17 13:11 Spherocytes Not Reportable 06/25/17 13:11 Pappenheimer Bodies Not Reportable 06/25/17 13:11 Sickle Cells Not Reportable 06/25/17 13:11 Target Cells Not Reportable 06/25/17 13:11 Tear Drop Cells Not Reportable 06/25/17 13:11 Ovalocytes 1+ 06/25/17 13:11 Helmet Cells Not Reportable 06/25/17 13:11 [place] Bodies Not Reportable 06/25/17 13:11 [place] Rings Not Reportable 06/25/17 13:11 [place] Cells Not Reportable 06/25/17 13:11 Bite Cells Not Reportable 06/25/17 13:11 Crenated Cell Not Reportable 06/25/17 13:11 Elliptocytes Not Reportable 06/25/17 13:11 Acanthocytes (Spur) Not Reportable 06/25/17 13:11 Rouleaux Not Reportable 06/25/17 13:11 Hemoglobin C Crystals Not Reportable 06/25/17 13:11 Schistocytes Not Reportable 06/25/17 13:11 Malaria parasites Not Reportable 06/25/17 13:11 Tyshawn Bodies Not Reportable 06/25/17 13:11 Hem Pathologist Commnt No 06/25/17 13:11 POC ABG pH 7.365 (7.35-7.45) 06/25/17 16:19 POC ABG pCO2 49.9 (35-45) H 06/25/17 16:19 POC ABG pO2 66 (80-105) L 06/25/17 16:19 POC ABG HCO3 28.5 06/25/17 16:19 POC ABG Total CO2 30 06/25/17 16:19 POC ABG O2 Sat 92 06/25/17 16:19 POC ABG Base Excess 3 06/25/17 16:19 FiO2 4 % 06/25/17 16:19 Sodium 139 mmol/L (137-145) 06/26/17 05:43 Potassium 4.6 mmol/L (3.6-5.0) 06/26/17 05:43 Chloride 97.4 mmol/L (98-107) L 06/26/17 05:43 Carbon Dioxide 29 mmol/L (22-30) 06/26/17 05:43 Anion Gap 17 mmol/L 06/26/17 05:43 BUN 8 mg/dL (7-17) 06/26/17 05:43 Creatinine 0.4 mg/dL (0.7-1.2) L 06/26/17 05:43 Estimated GFR > 60 ml/min 06/26/17 05:43 BUN/Creatinine Ratio 20 % 06/26/17 05:43 Glucose 158 mg/dL (65-100) H 06/26/17 05:43 Calcium 8.8 mg/dL (8.4-10.2) 06/26/17 05:43 Total Bilirubin 0.40 mg/dL (0.1-1.2) 06/26/17 05:43 AST 29 units/L (5-40) 06/26/17 05:43 ALT 40 units/L (7-56) 06/26/17 05:43 Alkaline Phosphatase 77 units/L (35-129) 06/26/17 05:43 NT-Pro-B Natriuret Pep 1693 pg/mL (0-450) H 06/25/17 15:45 Total Protein 8.6 g/dL (6.3-8.2) H 06/26/17 05:43 Albumin 3.8 g/dL (3.9-5) L 06/26/17 05:43 Albumin/Globulin Ratio 0.8 % 06/26/17 05:43 Urine Color Straw (Yellow) 06/25/17 16:00 Urine Turbidity Clear (Clear) 06/25/17 16:00 Urine pH 6.0 (5.0-7.0) 06/25/17 16:00 Ur Specific [place] 1.001 (1.003-1.030) L 06/25/17 16:00 Urine Protein <15 mg/dl mg/dL (Negative) 06/25/17 16:00 Urine Glucose (UA) Neg mg/dL (Negative) 06/25/17 16:00 Urine Ketones Neg mg/dL (Negative) 06/25/17 16:00 Urine Blood Sm (Negative) 06/25/17 16:00 Urine Nitrite Neg (Negative) 06/25/17 16:00 Ur Reducing Substances Not Reportable 06/25/17 16:00 Urine Bilirubin Neg (Negative) 06/25/17 16:00 Urine Ictotest Not Reportable 06/25/17 16:00 Urine Urobilinogen < 2.0 mg/dL (<2.0) 06/25/17 16:00 Ur Leukocyte Esterase Neg (Negative) 06/25/17 16:00 Urine WBC (Auto) < 1.0 /HPF (0.0-6.0) 06/25/17 16:00 Urine RBC (Auto) < 1.0 /HPF (0.0-6.0) 06/25/17 16:00 U Epithel Cells (Auto) < 1.0 /HPF (0-13.0) 06/25/17 16:00 Urine HCG, Qual Negative (Negative) 06/25/17 16:00
[2017-06-27] MEDS: cefTRIAXone 2 GM in NACL 0.9% 20 ML IV SCH (12:31)
[2017-06-27] MEDS: ZITHROMAX 500 MG in NACL 0.9% 250ML 250 ML IV SCH (12:42)
--- NOTE | 2017-06-27 14:04 | Consultation ---
History of Present Illness Consult date: 06/27/17 Reason for consult: dyspnea, cough, pneumonia, other (morbid obesity, BMI of 67.4) History of present illness: Called to evaluate case of a 31-year-old -[place] female, with history of asthma presenting with shortness of breath, general malaise and fever for the past 4 days. The patient has prior history of asthma, morbid obesity with reportedly sleep apnea but not on active treatment. Patient reports that she started to feel sick about one week ago, with new onset of increased cough, wheezing and fever noted sporadically. Her sputum becomes greenish since then, no hemoptysis reported. No chest pain or chills. She denies any history of sick contact. Has no flow by sedation this year. She does not smoke. Has never been intubated for asthma. Reported history of asthma for years now and she was first diagnosed with sleep apnea in high school. Does not use a CPAP . No pulmonary follow-up. Past History Past Surgical History: No surgical history Social history: full code. denies: smoking, alcohol abuse, IV drug use Family history: CAD, hypertension Medications and Allergies Allergies Allergy/AdvReac Type Severity Reaction Status Date / Time No Known Allergies Allergy Unverified 01/27/17 11:17 Home Medications Medication Instructions Recorded Confirmed Last Taken Type ALBUTEROL Inhaler [ProAir HFA 2 puff IH QID PRN #1 inhalation 04/25/17 06/28/17 Unknown Rx Inhaler] ALBUTEROL NEB's [Proventil 0.083% 2.5 mg IH Q4H PRN #1 box 04/25/17 06/28/17 Unknown Rx NEBS] Active Meds: Active Medications Acetaminophen (Tylenol) 650 mg PO Q4H PRN PRN Reason: Pain MILD(1-3)/Fever >100.5/BROWN Albuterol (Proventil) 2.5 mg IH Q3HRT PRN PRN Reason: Shortness Of Breath Last Admin: 06/25/17 13:40 Dose: 2.5 mg Albuterol/Ipratropium (Duoneb *Not For Prn Use*) 1 ampul IH TIDRT EKATERINA Last Admin: 06/27/17 13:29 Dose: 1 ampul Azithromycin (Zithromax) 500 mg PO QDAY EKATERINA Bisacodyl (Dulcolax) 10 mg TN QDAY PRN PRN Reason: Constipation unrelieved by MOM Famotidine (Pepcid) 20 mg PO BID [facility] Last Admin: 06/27/17 10:35 Dose: 20 mg Heparin Sodium (Porcine) (Heparin) 5,000 unit SUB-Q Q8HR [facility] Last Admin: 06/27/17 06:37 Dose: 5,000 unit Hydrochlorothiazide (Hctz) 25 mg PO QDAY [facility] Last Admin: 06/27/17 10:35 Dose: 25 mg Azithromycin 500 mg/ Sodium (Chloride) 250 mls @ 250 mls/hr IV Q24HR [facility] Stop: 06/27/17 13:59 Last Admin: 06/27/17 12:42 Dose: 250 mls/hr Ceftriaxone Sodium 2 gm/ (Sodium Chloride) 20 mls @ 20 mls/10 min IV Q24HR [facility] Last Admin: 06/27/17 12:31 Dose: 20 mls/10 min Magnesium Hydroxide (Milk Of Magnesia) 30 ml PO Q4H PRN PRN Reason: Constipation Methylprednisolone Sodium Succinate (Solu-Medrol) 60 mg IV Q8H [facility] Last Admin: 06/27/17 11:48 Dose: 60 mg Morphine Sulfate (Morphine) 2 mg IV Q4H PRN PRN Reason: Pain, Moderate (4-6) Ondansetron HCl (Zofran) 4 mg IV Q8H PRN PRN Reason: N/V unrelieved by Reglan Oxycodone/Acetaminophen (Percocet 5/325) 1 tab PO Q6H PRN PRN Reason: Pain, Moderate (4-6) Review of Systems Constitutional: weight gain, fever, chills, fatigue, no sweats, no night sweats , no weakness, no malaise, no lethargy, no daytime sleepiness Ears, nose, mouth and throat: no ear pain, no ear discharge, no tinnitis Cardiovascular: edema, shortness of breath, dyspnea on exertion, no chest pain, no orthopnea, no palpitations, no syncope Respiratory: cough, cough with sputum, excessive sputum, congestion, sleep apnea , no hemoptysis, no wheezing, no pleurisy, no pain, no home oxygen Gastrointestinal: no abdominal pain, no nausea, no vomiting, no diarrhea Neurological: no head injury, no transient paralysis, no paralysis, no weakness , no parathesias Physical Examination Vital signs: Vital Signs Temp 97.8 F 06/25/17 12:58 General appearance: no acute distress, alert, other (severe morbid obesity.) ENT: other (Mallampati 4) Neck: supple, no JVD (difficult to evaluate the patient obesity) Ascultation: Right: wheezes, rhonchi, Bilateral: diminished breath sounds Gastrointestinal: normoactive bowel sounds, non-tender, non-distended Extremities: no cyanosis, no edema Musculoskeletal: no deformities normal mental status, non-focal exam, CN II-XII normal, motor strength normal and mood appropriate, affect normal Results - Laboratory Findings CBC and BMP: 06/26/17 05:43 06/26/17 05:43 ABG POC ABG pH 7.365 (7.35-7.45) 06/25/17 16:19 POC ABG pCO2 49.9 (35-45) H 06/25/17 16:19 POC ABG pO2 66 (80-105) L 06/25/17 16:19 POC ABG HCO3 28.5 06/25/17 16:19 POC ABG Total CO2 30 06/25/17 16:19 POC ABG O2 Sat 92 06/25/17 16:19 Abnormal lab findings: Abnormal Labs 06/25/17 06/25/17 06/25/17 13:11 13:11 15:45 WBC RBC 5.11 H MCV 71 L MCH 22 L RDW 19.3 H Lymph % (Auto) Seg Neutrophils % Seg Neuts % (Manual) 78.0 H Seg Neutrophils # Seg Neutrophils # Man 8.0 H POC ABG pCO2 POC ABG pO2 Chloride Creatinine 0.5 L Glucose 134 H NT-Pro-B Natriuret Pep 1693 H Total Protein Albumin Ur Specific [place] 06/25/17 06/25/17 06/26/17 16:00 16:19 05:43 WBC 12.3 H RBC MCV 72 L MCH 22 L RDW 19.5 H Lymph % (Auto) 10.7 L Seg Neutrophils % 85.9 H Seg Neuts % (Manual) Seg Neutrophils # 10.6 H Seg Neutrophils # Man POC ABG pCO2 49.9 H POC ABG pO2 66 L Chloride Creatinine Glucose NT-Pro-B Natriuret Pep Total Protein Albumin Ur Specific [place] 1.001 L 06/26/17 05:43 WBC RBC MCV MCH RDW Lymph % (Auto) Seg Neutrophils % Seg Neuts % (Manual) Seg Neutrophils # Seg Neutrophils # Man POC ABG pCO2 POC ABG pO2 Chloride 97.4 L Creatinine 0.4 L Glucose 158 H NT-Pro-B Natriuret Pep Total Protein 8.6 H Albumin 3.8 L Ur Specific [place] - Diagnostic Findings Chest x-ray: report reviewed, image reviewed Assessment and Plan Community-acquired pneumonia. Patient will large her consolidation in the right lower lobe. Chronic respiratory acidosis. Possibly related to obesity hypoventilation syndrome. Obesity hypoventilation syndrome CLAUDIA by history Severe morbid obesity Recommendations SC B/C q 15 min x 2 Ceftriazone 1-2 g qd IV/Azithromycin 500 mg qd IV or Levaquin 750 mg qd if no allergies or contraindications Review antibiotic treatment once cultures available and de-escalate if appropriate Albuterol 2.5 milligram nebulizations every 4-6 hours with or without ipratropium Solu-Medrol 40-60 mg IV every 6-8 hours Oxygen support via nasal cannula or mask to maintain oximetry over 92% DVT prophylaxis measures Thanks, will follow with you.
[2017-06-28] MEDS ORDERED: TESSALON PERLES PO PRN (01:15)
[2017-06-28] MEDS: HEPARIN SUB-Q SCH ×3 (06:09→21:42)
[2017-06-28] MEDS: HCTZ PO SCH (09:30)
[2017-06-28] MEDS: PEPCID PO SCH ×2 (09:30→21:41)
[2017-06-28] MEDS: ZITHROMAX PO SCH (09:31)
--- NOTE | 2017-06-28 11:40 | Progress Note ---
Assessment and Plan Assessment and plan: Patient is 31-year-old extremely obese woman BMI 66.2 with sequelae of health conditions such as sleep apnea noncompliant with CPAP, asthma who presents with acute shortness of breath with hypoxia pulse ox 87%. Chest x-ray shows right lower lobe infiltrates. -Acute hypoxic respiratory failure: Treated with oxygen -Acute asthma exacerbation: Treated with IV steroids and nebulizer treatments -Sepsis pneumonia, right lower lobe aspiration type: Treatment IV antibiotics -Extreme obesity BMI 66.2 with obesity hypoventilation syndrome suspected/sleep apnea: Counseling done, she says she is getting insurance next month and will reestablish care with physicians, consult dietitian -DVT prophylaxis: change lovenox to sq heparin due to weight Consulted Pulmonology Bariatric bed ordered and accurate weight done and BMI is actually 88.2 not 66.2 Patient may not need Home O2 but patient doesn't have insurance. D/w case management Dominga History Interval history: Patient was seen and examined. Follow-up on current diagnosis. Overnight uneventful. Patient denies any chest pain, nausea/vomiting or severe headaches. Imaging, nursing note, chart, labs and old chart reviewed. Discussed with patient. Shortness breath is improved with oxygen. Patient doesn't have insurance so she hasn't seen a physician, she has sleep apnea but she doesn't have a CPAP machine because he has a follow-up because no physician Hospitalist Physical - Physical exam Narrative exam: GEN: Ill-appearing Morbid obese BMI 88.2 NAD, AWAKE, ALERT, ORIENTATED 3 HEENT: NCAT, EOMI, PERRL, OP Clear NECK: supple, no adenopathy, no thyromegaly, no JVD CVS/HEART: RRR, NORMAL S1S2, NO JVD, pulses present bilaterally CHEST/LUNGS: Bilateral rhonchi Symmetrical chest expansion, diminished entry bilaterally GI/Abdomen: soft, NTND, good bowel sounds, no guarding or rebound /Bladder: no suprapubic tenderness, no CVA or paraspinal tenderness EXT/Skin: no c/c/e, no obvious rash MSK: FROM x 4 Neuro: CN 2-12 grossly intact, no new focal deficits Psych: calm - Constitutional Vitals: Temp Pulse Resp BP Pulse Ox 97.6 F 100 H 24 146/102 92 06/28/17 09:01 06/28/17 09:01 06/28/17 09:01 06/28/17 09:01 06/28/17 09:01 Results - Labs CBC & Chem 7: 06/26/17 05:43 06/26/17 05:43 Labs: Laboratory Last Values WBC 12.3 K/mm3 (4.5-11.0) H 06/26/17 05:43 RBC 5.03 M/mm3 (3.65-5.03) 06/26/17 05:43 Hgb 11.0 gm/dl (10.1-14.3) 06/26/17 05:43 Hct 36.0 % (30.3-42.9) 06/26/17 05:43 MCV 72 fl (79-97) L 06/26/17 05:43 MCH 22 pg (28-32) L 06/26/17 05:43 MCHC 31 % (30-34) 06/26/17 05:43 RDW 19.5 % (13.2-15.2) H 06/26/17 05:43 Plt Count 291 K/mm3 (140-440) 06/26/17 05:43 Lymph % (Auto) 10.7 % (13.4-35.0) L 06/26/17 05:43 [place] % (Auto) 3.2 % (0.0-7.3) 06/26/17 05:43 Eos % (Auto) 0.0 % (0.0-4.3) 06/26/17 05:43 Baso % (Auto) 0.2 % (0.0-1.8) 06/26/17 05:43 Lymph # 1.3 K/mm3 (1.2-5.4) 06/26/17 05:43 [place] # 0.4 K/mm3 (0.0-0.8) 06/26/17 05:43 Eos # 0.0 K/mm3 (0.0-0.4) 06/26/17 05:43 Baso # 0.0 K/mm3 (0.0-0.1) 06/26/17 05:43 Add Manual Diff Complete 06/25/17 13:11 Total Counted 100 06/25/17 13:11 Seg Neutrophils % 85.9 % (40.0-70.0) H 06/26/17 05:43 Seg Neuts % (Manual) 78.0 % (40.0-70.0) H 06/25/17 13:11 Band Neutrophils % 0 % 06/25/17 13:11 Lymphocytes % (Manual) 15.0 % (13.4-35.0) 06/25/17 13:11 Reactive Lymphs % (Man) 0 % 06/25/17 13:11 Monocytes % (Manual) 7.0 % (0.0-7.3) 06/25/17 13:11 Eosinophils % (Manual) 0 % (0.0-4.3) 06/25/17 13:11 Basophils % (Manual) 0 % (0.0-1.8) 06/25/17 13:11 Metamyelocytes % 0 % 06/25/17 13:11 Myelocytes % 0 % 06/25/17 13:11 Promyelocytes % 0 % 06/25/17 13:11 Blast Cells % 0 % 06/25/17 13:11 Nucleated RBC % Not Reportable 06/25/17 13:11 Seg Neutrophils # 10.6 K/mm3 (1.8-7.7) H 06/26/17 05:43 Seg Neutrophils # Man 8.0 K/mm3 (1.8-7.7) H 06/25/17 13:11 Band Neutrophils # 0.0 K/mm3 06/25/17 13:11 Lymphocytes # (Manual) 1.5 K/mm3 (1.2-5.4) 06/25/17 13:11 Abs React Lymphs (Man) 0.0 K/mm3 06/25/17 13:11 Monocytes # (Manual) 0.7 K/mm3 (0.0-0.8) 06/25/17 13:11 Eosinophils # (Manual) 0.0 K/mm3 (0.0-0.4) 06/25/17 13:11 Basophils # (Manual) 0.0 K/mm3 (0.0-0.1) 06/25/17 13:11 Metamyelocytes # 0.0 K/mm3 06/25/17 13:11 Myelocytes # 0.0 K/mm3 06/25/17 13:11 Promyelocytes # 0.0 K/mm3 06/25/17 13:11 Blast Cells # 0.0 K/mm3 06/25/17 13:11 WBC Morphology Not Reportable 06/25/17 13:11 Hypersegmented Neuts Not Reportable 06/25/17 13:11 Hyposegmented Neuts Not Reportable 06/25/17 13:11 Hypogranular Neuts Not Reportable 06/25/17 13:11 Smudge Cells Not Reportable 06/25/17 13:11 Toxic Granulation Not Reportable 06/25/17 13:11 Toxic Vacuolation Not Reportable 06/25/17 13:11 Dohle Bodies Not Reportable 06/25/17 13:11 Pelger-Huet Anomaly Not Reportable 06/25/17 13:11 [place] Cristina Rods Not Reportable 06/25/17 13:11 Platelet Estimate Consistent w auto 06/25/17 13:11 Clumped Platelets Not Reportable 06/25/17 13:11 Plt Clumps, EDTA Not Reportable 06/25/17 13:11 Large Platelets 1+ 06/25/17 13:11 Giant Platelets Not Reportable 06/25/17 13:11 Platelet Satelliting Not Reportable 06/25/17 13:11 Plt Morphology Comment Not Reportable 06/25/17 13:11 RBC Morphology Not Reportable 06/25/17 13:11 Dimorphic RBCs Not Reportable 06/25/17 13:11 Polychromasia Not Reportable 06/25/17 13:11 Hypochromasia 2+ 06/25/17 13:11 Poikilocytosis Not Reportable 06/25/17 13:11 Anisocytosis 1+ 06/25/17 13:11 Microcytosis Not Reportable 06/25/17 13:11 Macrocytosis Not Reportable 06/25/17 13:11 Spherocytes Not Reportable 06/25/17 13:11 Pappenheimer Bodies Not Reportable 06/25/17 13:11 Sickle Cells Not Reportable 06/25/17 13:11 Target Cells Not Reportable 06/25/17 13:11 Tear Drop Cells Not Reportable 06/25/17 13:11 Ovalocytes 1+ 06/25/17 13:11 Helmet Cells Not Reportable 06/25/17 13:11 [place] Bodies Not Reportable 06/25/17 13:11 [place] Rings Not Reportable 06/25/17 13:11 [place] Cells Not Reportable 06/25/17 13:11 Bite Cells Not Reportable 06/25/17 13:11 Crenated Cell Not Reportable 06/25/17 13:11 Elliptocytes Not Reportable 06/25/17 13:11 Acanthocytes (Spur) Not Reportable 06/25/17 13:11 Rouleaux Not Reportable 06/25/17 13:11 Hemoglobin C Crystals Not Reportable 06/25/17 13:11 Schistocytes Not Reportable 06/25/17 13:11 Malaria parasites Not Reportable 06/25/17 13:11 [place] Bodies Not Reportable 06/25/17 13:11 Hem Pathologist Commnt No 06/25/17 13:11 POC ABG pH 7.365 (7.35-7.45) 06/25/17 16:19 POC ABG pCO2 49.9 (35-45) H 06/25/17 16:19 POC ABG pO2 66 (80-105) L 06/25/17 16:19 POC ABG HCO3 28.5 06/25/17 16:19 POC ABG Total CO2 30 06/25/17 16:19 POC ABG O2 Sat 92 06/25/17 16:19 POC ABG Base Excess 3 06/25/17 16:19 FiO2 4 % 06/25/17 16:19 Sodium 139 mmol/L (137-145) 06/26/17 05:43 Potassium 4.6 mmol/L (3.6-5.0) 06/26/17 05:43 Chloride 97.4 mmol/L (98-107) L 06/26/17 05:43 Carbon Dioxide 29 mmol/L (22-30) 06/26/17 05:43 Anion Gap 17 mmol/L 06/26/17 05:43 BUN 8 mg/dL (7-17) 06/26/17 05:43 Creatinine 0.4 mg/dL (0.7-1.2) L 06/26/17 05:43 Estimated GFR > 60 ml/min 06/26/17 05:43 BUN/Creatinine Ratio 20 % 06/26/17 05:43 Glucose 158 mg/dL (65-100) H 06/26/17 05:43 Calcium 8.8 mg/dL (8.4-10.2) 06/26/17 05:43 Total Bilirubin 0.40 mg/dL (0.1-1.2) 06/26/17 05:43 AST 29 units/L (5-40) 06/26/17 05:43 ALT 40 units/L (7-56) 06/26/17 05:43 Alkaline Phosphatase 77 units/L (35-129) 06/26/17 05:43 NT-Pro-B Natriuret Pep 1693 pg/mL (0-450) H 06/25/17 15:45 Total Protein 8.6 g/dL (6.3-8.2) H 06/26/17 05:43 Albumin 3.8 g/dL (3.9-5) L 06/26/17 05:43 Albumin/Globulin Ratio 0.8 % 06/26/17 05:43 Urine Color Straw (Yellow) 06/25/17 16:00 Urine Turbidity Clear (Clear) 06/25/17 16:00 Urine pH 6.0 (5.0-7.0) 06/25/17 16:00 Ur Specific [place] 1.001 (1.003-1.030) L 06/25/17 16:00 Urine Protein <15 mg/dl mg/dL (Negative) 06/25/17 16:00 Urine Glucose (UA) Neg mg/dL (Negative) 06/25/17 16:00 Urine Ketones Neg mg/dL (Negative) 06/25/17 16:00 Urine Blood Sm (Negative) 06/25/17 16:00 Urine Nitrite Neg (Negative) 06/25/17 16:00 Ur Reducing Substances Not Reportable 06/25/17 16:00 Urine Bilirubin Neg (Negative) 06/25/17 16:00 Urine Ictotest Not Reportable 06/25/17 16:00 Urine Urobilinogen < 2.0 mg/dL (<2.0) 06/25/17 16:00 Ur Leukocyte Esterase Neg (Negative) 06/25/17 16:00 Urine WBC (Auto) < 1.0 /HPF (0.0-6.0) 06/25/17 16:00 Urine RBC (Auto) < 1.0 /HPF (0.0-6.0) 06/25/17 16:00 U Epithel Cells (Auto) < 1.0 /HPF (0-13.0) 06/25/17 16:00 Urine HCG, Qual Negative (Negative) 06/25/17 16:00
--- NOTE | 2017-06-28 12:34 | Progress Note ---
Assessment and Plan Community-acquired pneumonia. No fever this morning. Chest signs improved. Still some cough. Chronic respiratory acidosis. Possibly related to obesity hypoventilation syndrome. Asthma exacerbation. No wheezing this morning. Obesity hypoventilation syndrome CLAUDIA by history Severe morbid obesity Recommendations Continue nebulizer therapy. Continue antibiotics and if no additional information from cultures, recommended 7 days of oral treatment. Possibly amenable to be switched over to oral antibiotics, if no fever noted If the wheezing, can switch to oral steroids and tapered down in the next 6 days. Will need to continue on Breo or Symbicort for wheezing at discharge Out of bed as tolerated. Incentive spirometry DVT prophylaxis measures Influenza vaccination. Needs outpatient evaluation for chronic respiratory acidosis Discussed with patient in detail. All questions answered. Subjective Date of service: 06/28/17 Principal diagnosis: community-acquired pneumonia, asthma exacerbation, morbid obesity Interval history: Reports some cough but feeling better this morning. No fever reported. No chest pain. Objective Vital Signs - 12hr 06/28/17 06/28/17 05:06 09:01 Temperature 97.7 F 97.6 F Pulse Rate 78 100 H Respiratory 24 24 Rate Blood Pressure 137/82 146/102 O2 Sat by Pulse 95 92 Oximetry Constitutional: no acute distress, alert, other (severe morbid obesity.) ENT: other (Mallampati 4) Neck: supple, no JVD (difficult to evaluate the patient obesity) Ascultation: Right: diminished breath sounds, Bilateral: clear Gastrointestinal: normoactive bowel sounds, non-tender, non-distended Extremities: no cyanosis, no edema Neurologic: normal mental status, non-focal exam, CN II-XII normal, motor strength normal and Psychiatric: mood appropriate, affect normal CBC and BMP: 06/26/17 05:43 06/26/17 05:43 ABG, PT/INR, D-dimer: ABG POC ABG pH 7.365 (7.35-7.45) 06/25/17 16:19 POC ABG pCO2 49.9 (35-45) H 06/25/17 16:19 POC ABG pO2 66 (80-105) L 06/25/17 16:19 POC ABG HCO3 28.5 06/25/17 16:19 POC ABG Total CO2 30 06/25/17 16:19 POC ABG O2 Sat 92 06/25/17 16:19 Abnormal lab findings: Abnormal Labs 06/25/17 06/25/17 06/25/17 13:11 13:11 15:45 WBC RBC 5.11 H MCV 71 L MCH 22 L RDW 19.3 H Lymph % (Auto) Seg Neutrophils % Seg Neuts % (Manual) 78.0 H Seg Neutrophils # Seg Neutrophils # Man 8.0 H POC ABG pCO2 POC ABG pO2 Chloride Creatinine 0.5 L Glucose 134 H NT-Pro-B Natriuret Pep 1693 H Total Protein Albumin Ur Specific [place] 06/25/17 06/25/17 06/26/17 16:00 16:19 05:43 WBC 12.3 H RBC MCV 72 L MCH 22 L RDW 19.5 H Lymph % (Auto) 10.7 L Seg Neutrophils % 85.9 H Seg Neuts % (Manual) Seg Neutrophils # 10.6 H Seg Neutrophils # Man POC ABG pCO2 49.9 H POC ABG pO2 66 L Chloride Creatinine Glucose NT-Pro-B Natriuret Pep Total Protein Albumin Ur Specific [place] 1.001 L 06/26/17 05:43 WBC RBC MCV MCH RDW Lymph % (Auto) Seg Neutrophils % Seg Neuts % (Manual) Seg Neutrophils # Seg Neutrophils # Man POC ABG pCO2 POC ABG pO2 Chloride 97.4 L Creatinine 0.4 L Glucose 158 H NT-Pro-B Natriuret Pep Total Protein 8.6 H Albumin 3.8 L Ur Specific [place]
[2017-06-28] MEDS: cefTRIAXone 2 GM in NACL 0.9% 20 ML IV SCH (13:41)
[2017-06-28] MEDS: DUONEB *Not for PRN Use IH SCH ×3 (14:13→19:48)
[2017-06-29] MEDS: HEPARIN SUB-Q SCH ×3 (05:40→22:20)
[2017-06-29] MEDS: DUONEB *Not for PRN Use IH SCH ×3 (07:40→20:48)
--- NOTE | 2017-06-29 08:24 | Progress Note ---
Assessment and Plan Assessment and plan: Patient is 31-year-old extremely obese woman BMI 88.2 with sequelae of health conditions such as sleep apnea noncompliant with CPAP, asthma who presents with acute shortness of breath with hypoxia pulse ox 87%. Chest x-ray shows right lower lobe infiltrates. -Acute hypoxic respiratory failure: Treated with oxygen -Acute asthma exacerbation: Treated with IV steroids and nebulizer treatments -Sepsis pneumonia, right lower lobe aspiration type: Treatment IV antibiotics -Extreme obesity BMI 88.2 with obesity hypoventilation syndrome suspected/sleep apnea: Counseling done, she says she is getting insurance next month and will reestablish care with physicians, consult dietitian -DVT prophylaxis: change lovenox to sq heparin due to weight Bariatric bed ordered and accurate weight done and BMI is actually 88.2 not 66.2 Patient pulse ox dropped into in the 70s when she walked to the nursing station. She need home oxygen, but she has no insurance so she will need to pay for it herself. The cost of O2 is 250.00 per month according to case management. Patient's insurance will start Jul.18 according to patient, so the o2 will be covered then. She doesn't want to pay for O2 until then. I told her she can't work or drive without O2. D/c once cleared by pulmonology. History Interval history: Patient was seen and examined. Follow-up on current diagnosis. Overnight uneventful. Patient denies any chest pain, nausea/vomiting or severe headaches. Imaging, nursing note, chart, labs and old chart reviewed. Discussed with patient. Shortness breath is improved with oxygen. Patient doesn't have insurance so she hasn't seen a physician, she has sleep apnea but she doesn't have a CPAP machine because he has a follow-up because no physician Hospitalist Physical - Physical exam Narrative exam: GEN: Ill-appearing Morbid obese BMI 88.2 NAD, AWAKE, ALERT, ORIENTATED 3 HEENT: NCAT, EOMI, PERRL, OP Clear NECK: supple, no adenopathy, no thyromegaly, no JVD CVS/HEART: RRR, NORMAL S1S2, NO JVD, pulses present bilaterally CHEST/LUNGS: Bilateral rhonchi Symmetrical chest expansion, diminished entry bilaterally GI/Abdomen: soft, NTND, good bowel sounds, no guarding or rebound /Bladder: no suprapubic tenderness, no CVA or paraspinal tenderness EXT/Skin: no c/c/e, no obvious rash MSK: FROM x 4 Neuro: CN 2-12 grossly intact, no new focal deficits Psych: calm - Constitutional Vitals: Temp Pulse Resp BP Pulse Ox 97.3 F L 79 24 141/102 98 06/29/17 04:44 06/29/17 04:44 06/29/17 04:44 06/29/17 04:44 06/29/17 04:44 Results - Labs CBC & Chem 7: 06/26/17 05:43 06/26/17 05:43 Labs: Laboratory Last Values WBC 12.3 K/mm3 (4.5-11.0) H 06/26/17 05:43 RBC 5.03 M/mm3 (3.65-5.03) 06/26/17 05:43 Hgb 11.0 gm/dl (10.1-14.3) 06/26/17 05:43 Hct 36.0 % (30.3-42.9) 06/26/17 05:43 MCV 72 fl (79-97) L 06/26/17 05:43 MCH 22 pg (28-32) L 06/26/17 05:43 MCHC 31 % (30-34) 06/26/17 05:43 RDW 19.5 % (13.2-15.2) H 06/26/17 05:43 Plt Count 291 K/mm3 (140-440) 06/26/17 05:43 Lymph % (Auto) 10.7 % (13.4-35.0) L 06/26/17 05:43 [place] % (Auto) 3.2 % (0.0-7.3) 06/26/17 05:43 Eos % (Auto) 0.0 % (0.0-4.3) 06/26/17 05:43 Baso % (Auto) 0.2 % (0.0-1.8) 06/26/17 05:43 Lymph # 1.3 K/mm3 (1.2-5.4) 06/26/17 05:43 [place] # 0.4 K/mm3 (0.0-0.8) 06/26/17 05:43 Eos # 0.0 K/mm3 (0.0-0.4) 06/26/17 05:43 Baso # 0.0 K/mm3 (0.0-0.1) 06/26/17 05:43 Add Manual Diff Complete 06/25/17 13:11 Total Counted 100 06/25/17 13:11 Seg Neutrophils % 85.9 % (40.0-70.0) H 06/26/17 05:43 Seg Neuts % (Manual) 78.0 % (40.0-70.0) H 06/25/17 13:11 Band Neutrophils % 0 % 06/25/17 13:11 Lymphocytes % (Manual) 15.0 % (13.4-35.0) 06/25/17 13:11 Reactive Lymphs % (Man) 0 % 06/25/17 13:11 Monocytes % (Manual) 7.0 % (0.0-7.3) 06/25/17 13:11 Eosinophils % (Manual) 0 % (0.0-4.3) 06/25/17 13:11 Basophils % (Manual) 0 % (0.0-1.8) 06/25/17 13:11 Metamyelocytes % 0 % 06/25/17 13:11 Myelocytes % 0 % 06/25/17 13:11 Promyelocytes % 0 % 06/25/17 13:11 Blast Cells % 0 % 06/25/17 13:11 Nucleated RBC % Not Reportable 06/25/17 13:11 Seg Neutrophils # 10.6 K/mm3 (1.8-7.7) H 06/26/17 05:43 Seg Neutrophils # Man 8.0 K/mm3 (1.8-7.7) H 06/25/17 13:11 Band Neutrophils # 0.0 K/mm3 06/25/17 13:11 Lymphocytes # (Manual) 1.5 K/mm3 (1.2-5.4) 06/25/17 13:11 Abs React Lymphs (Man) 0.0 K/mm3 06/25/17 13:11 Monocytes # (Manual) 0.7 K/mm3 (0.0-0.8) 06/25/17 13:11 Eosinophils # (Manual) 0.0 K/mm3 (0.0-0.4) 06/25/17 13:11 Basophils # (Manual) 0.0 K/mm3 (0.0-0.1) 06/25/17 13:11 Metamyelocytes # 0.0 K/mm3 06/25/17 13:11 Myelocytes # 0.0 K/mm3 06/25/17 13:11 Promyelocytes # 0.0 K/mm3 06/25/17 13:11 Blast Cells # 0.0 K/mm3 06/25/17 13:11 WBC Morphology Not Reportable 06/25/17 13:11 Hypersegmented Neuts Not Reportable 06/25/17 13:11 Hyposegmented Neuts Not Reportable 06/25/17 13:11 Hypogranular Neuts Not Reportable 06/25/17 13:11 Smudge Cells Not Reportable 06/25/17 13:11 Toxic Granulation Not Reportable 06/25/17 13:11 Toxic Vacuolation Not Reportable 06/25/17 13:11 Dohle Bodies Not Reportable 06/25/17 13:11 Pel[place]-Huet Anomaly Not Reportable 06/25/17 13:11 Ana Cristina Rods Not Reportable 06/25/17 13:11 Platelet Estimate Consistent w auto 06/25/17 13:11 Clumped Platelets Not Reportable 06/25/17 13:11 Plt Clumps, EDTA Not Reportable 06/25/17 13:11 Large Platelets 1+ 06/25/17 13:11 Giant Platelets Not Reportable 06/25/17 13:11 Platelet Satelliting Not Reportable 06/25/17 13:11 Plt Morphology Comment Not Reportable 06/25/17 13:11 RBC Morphology Not Reportable 06/25/17 13:11 Dimorphic RBCs Not Reportable 06/25/17 13:11 Polychromasia Not Reportable 06/25/17 13:11 Hypochromasia 2+ 06/25/17 13:11 Poikilocytosis Not Reportable 06/25/17 13:11 Anisocytosis 1+ 06/25/17 13:11 Microcytosis Not Reportable 06/25/17 13:11 Macrocytosis Not Reportable 06/25/17 13:11 Spherocytes Not Reportable 06/25/17 13:11 Pappenheimer Bodies Not Reportable 06/25/17 13:11 Sickle Cells Not Reportable 06/25/17 13:11 Target Cells Not Reportable 06/25/17 13:11 Tear Drop Cells Not Reportable 06/25/17 13:11 Ovalocytes 1+ 06/25/17 13:11 Helmet Cells Not Reportable 06/25/17 13:11 [place] Bodies Not Reportable 06/25/17 13:11 [place] Rings Not Reportable 06/25/17 13:11 Sara Cells Not Reportable 06/25/17 13:11 Bite Cells Not Reportable 06/25/17 13:11 Crenated Cell Not Reportable 06/25/17 13:11 Elliptocytes Not Reportable 06/25/17 13:11 Acanthocytes (Spur) Not Reportable 06/25/17 13:11 Rouleaux Not Reportable 06/25/17 13:11 Hemoglobin C Crystals Not Reportable 06/25/17 13:11 Schistocytes Not Reportable 06/25/17 13:11 Malaria parasites Not Reportable 06/25/17 13:11 Tyshawn Bodies Not Reportable 06/25/17 13:11 Hem Pathologist Commnt No 06/25/17 13:11 POC ABG pH 7.365 (7.35-7.45) 06/25/17 16:19 POC ABG pCO2 49.9 (35-45) H 06/25/17 16:19 POC ABG pO2 66 (80-105) L 06/25/17 16:19 POC ABG HCO3 28.5 06/25/17 16:19 POC ABG Total CO2 30 06/25/17 16:19 POC ABG O2 Sat 92 06/25/17 16:19 POC ABG Base Excess 3 06/25/17 16:19 FiO2 4 % 06/25/17 16:19 Sodium 139 mmol/L (137-145) 06/26/17 05:43 Potassium 4.6 mmol/L (3.6-5.0) 06/26/17 05:43 Chloride 97.4 mmol/L (98-107) L 06/26/17 05:43 Carbon Dioxide 29 mmol/L (22-30) 06/26/17 05:43 Anion Gap 17 mmol/L 06/26/17 05:43 BUN 8 mg/dL (7-17) 06/26/17 05:43 Creatinine 0.4 mg/dL (0.7-1.2) L 06/26/17 05:43 Estimated GFR > 60 ml/min 06/26/17 05:43 BUN/Creatinine Ratio 20 % 06/26/17 05:43 Glucose 158 mg/dL (65-100) H 06/26/17 05:43 Calcium 8.8 mg/dL (8.4-10.2) 06/26/17 05:43 Total Bilirubin 0.40 mg/dL (0.1-1.2) 06/26/17 05:43 AST 29 units/L (5-40) 06/26/17 05:43 ALT 40 units/L (7-56) 06/26/17 05:43 Alkaline Phosphatase 77 units/L (35-129) 06/26/17 05:43 NT-Pro-B Natriuret Pep 1693 pg/mL (0-450) H 06/25/17 15:45 Total Protein 8.6 g/dL (6.3-8.2) H 06/26/17 05:43 Albumin 3.8 g/dL (3.9-5) L 06/26/17 05:43 Albumin/Globulin Ratio 0.8 % 06/26/17 05:43 Urine Color Straw (Yellow) 06/25/17 16:00 Urine Turbidity Clear (Clear) 06/25/17 16:00 Urine pH 6.0 (5.0-7.0) 06/25/17 16:00 Ur Specific [place] 1.001 (1.003-1.030) L 06/25/17 16:00 Urine Protein <15 mg/dl mg/dL (Negative) 06/25/17 16:00 Urine Glucose (UA) Neg mg/dL (Negative) 06/25/17 16:00 Urine Ketones Neg mg/dL (Negative) 06/25/17 16:00 Urine Blood Sm (Negative) 06/25/17 16:00 Urine Nitrite Neg (Negative) 06/25/17 16:00 Ur Reducing Substances Not Reportable 06/25/17 16:00 Urine Bilirubin Neg (Negative) 06/25/17 16:00 Urine Ictotest Not Reportable 06/25/17 16:00 Urine Urobilinogen < 2.0 mg/dL (<2.0) 06/25/17 16:00 Ur Leukocyte Esterase Neg (Negative) 06/25/17 16:00 Urine WBC (Auto) < 1.0 /HPF (0.0-6.0) 06/25/17 16:00 Urine RBC (Auto) < 1.0 /HPF (0.0-6.0) 06/25/17 16:00 U Epithel Cells (Auto) < 1.0 /HPF (0-13.0) 06/25/17 16:00 Urine HCG, Qual Negative (Negative) 06/25/17 16:00
[2017-06-29] MEDS: ZITHROMAX PO SCH (10:35)
[2017-06-29] MEDS: PEPCID PO SCH ×2 (10:36→22:20)
[2017-06-29] MEDS: HCTZ PO SCH (10:36)
[2017-06-29] MEDS: cefTRIAXone 2 GM in NACL 0.9% 20 ML IV SCH (10:41)
--- NOTE | 2017-06-29 14:10 | Progress Note ---
Assessment and Plan Community-acquired pneumonia. Improved with no fever or minimal cough. Chronic respiratory acidosis. Possibly related to obesity hypoventilation syndrome. Asthma exacerbation. No wheezing, controlled Obesity hypoventilation syndrome CLAUDIA by history Severe morbid obesity Recommendations Continue nebulizer therapy. Continue antibiotics and if no additional information from cultures, recommended 7 days of oral treatment. Possibly amenable to be switched over to oral antibiotics, if no fever noted Will need to continue on Breo or Symbicort for wheezing at discharge Out of bed as tolerated. Incentive spirometry May not need oxygen at rest but need to be rechecked before discharge walking. DVT prophylaxis measures Weight control reduction diet Discussed with patient in detail. All questions answered. Subjective Date of service: 06/29/17 Principal diagnosis: community-acquired pneumonia, asthma exacerbation, morbid obesity Interval history: Some sporadic cough but no expectoration. Apparently needed oxygen when she tried to move out of bed. Objective Vital Signs - 12hr 06/29/17 06/29/17 06/29/17 04:44 07:40 07:50 Temperature 97.3 F L Pulse Rate 79 Pulse Rate [ 78 83 Anterior Bilateral Throughout] Respiratory 24 Rate Respiratory 18 18 Rate [Anterior Bilateral Throughout] Blood Pressure 141/102 O2 Sat by Pulse 98 98 Oximetry 06/29/17 07:51 Temperature 97.6 F Pulse Rate 78 Pulse Rate [ Anterior Bilateral Throughout] Respiratory 24 Rate Respiratory Rate [Anterior Bilateral Throughout] Blood Pressure 125/88 O2 Sat by Pulse 94 Oximetry Constitutional: no acute distress, alert, other (severe morbid obesity.) Neck: supple, no JVD (difficult to evaluate the patient obesity) Ascultation: Right: diminished breath sounds, wheezes, rhonchi, Bilateral: clear Cardiovascular: regular rate and rhythm Gastrointestinal: normoactive bowel sounds, non-tender, non-distended Extremities: no cyanosis, no edema Neurologic: normal mental status, non-focal exam, CN II-XII normal, motor strength normal and Psychiatric: mood appropriate, affect normal CBC and BMP: 06/26/17 05:43 06/26/17 05:43 ABG, PT/INR, D-dimer: ABG POC ABG pH 7.365 (7.35-7.45) 06/25/17 16:19 POC ABG pCO2 49.9 (35-45) H 06/25/17 16:19 POC ABG pO2 66 (80-105) L 06/25/17 16:19 POC ABG HCO3 28.5 06/25/17 16:19 POC ABG Total CO2 30 06/25/17 16:19 POC ABG O2 Sat 92 06/25/17 16:19 Abnormal lab findings: Abnormal Labs 06/25/17 06/25/17 06/25/17 13:11 13:11 15:45 WBC RBC 5.11 H MCV 71 L MCH 22 L RDW 19.3 H Lymph % (Auto) Seg Neutrophils % Seg Neuts % (Manual) 78.0 H Seg Neutrophils # Seg Neutrophils # Man 8.0 H POC ABG pCO2 POC ABG pO2 Chloride Creatinine 0.5 L Glucose 134 H NT-Pro-B Natriuret Pep 1693 H Total Protein Albumin Ur Specific [place] 06/25/17 06/25/17 06/26/17 16:00 16:19 05:43 WBC 12.3 H RBC MCV 72 L MCH 22 L RDW 19.5 H Lymph % (Auto) 10.7 L Seg Neutrophils % 85.9 H Seg Neuts % (Manual) Seg Neutrophils # 10.6 H Seg Neutrophils # Man POC ABG pCO2 49.9 H POC ABG pO2 66 L Chloride Creatinine Glucose NT-Pro-B Natriuret Pep Total Protein Albumin Ur Specific [place] 1.001 L 06/26/17 05:43 WBC RBC MCV MCH RDW Lymph % (Auto) Seg Neutrophils % Seg Neuts % (Manual) Seg Neutrophils # Seg Neutrophils # Man POC ABG pCO2 POC ABG pO2 Chloride 97.4 L Creatinine 0.4 L Glucose 158 H NT-Pro-B Natriuret Pep Total Protein 8.6 H Albumin 3.8 L Ur Specific [place]
--- NOTE | 2017-06-29 15:43 | XRay Report ---
Single view chest: Compared to 06/25/17. History: Pneumonia. Findings: Carl patient radiograph. Visualized lungs appears unremarkable. Trachea is midline. Cardiomegaly. Impression: Film in poor inspiration. Visualized lungs appear unremarkable.
[2017-06-30] MEDS: HEPARIN SUB-Q SCH ×2 (05:52→13:41)
[2017-06-30] MEDS: DUONEB *Not for PRN Use IH SCH ×2 (08:34→13:46)
[2017-06-30] MEDS: PEPCID PO SCH (09:34)
[2017-06-30] MEDS: ZITHROMAX PO SCH (09:34)
[2017-06-30] MEDS: HCTZ PO SCH (09:34)
--- NOTE | 2017-06-30 11:06 | Progress Note ---
Assessment and Plan Community-acquired pneumonia. Resolved infiltrate on x-ray. Chronic respiratory acidosis. Possibly related to obesity hypoventilation syndrome. Asthma exacerbation. Controlled Obesity hypoventilation syndrome CLAUDIA by history Severe morbid obesity Recommendations Complete antibiotics Outpatient treatment with Breo or Symbicort for wheezing at discharge Out of bed as tolerated. Incentive spirometry, continue as an outpatient DVT prophylaxis measures Weight control reduction diet Outpatient evaluation for her sleep apnea. We can do this at the office or she can continue her follow-up at [facility] clinic Discussed with patient in detail. Will sign off. Subjective Date of service: 06/30/17 Principal diagnosis: community-acquired pneumonia, asthma exacerbation, morbid obesity Interval history: No complaints reported. No cough. Breathing appears to be adequate per patient. Asking when she can be discharged. Objective Vital Signs - 12hr 06/30/17 06/30/17 06/30/17 01:16 04:16 07:48 Temperature 97.6 F 98.0 F 97.7 F Pulse Rate 83 66 Pulse Rate [ Throughout] Respiratory 19 18 24 Rate Respiratory Rate [ Throughout] Blood Pressure 154/104 142/99 134/82 O2 Sat by Pulse 89 97 Oximetry 06/30/17 06/30/17 06/30/17 08:00 08:34 08:35 Temperature Pulse Rate Pulse Rate [ 87 87 Throughout] Respiratory Rate Respiratory 17 16 Rate [ Throughout] Blood Pressure O2 Sat by Pulse 97 Oximetry Constitutional: no acute distress, alert, other (severe morbid obesity.) Neck: supple, no JVD (difficult to evaluate the patient obesity) Ascultation: Bilateral: clear, diminished breath sounds Cardiovascular: regular rate and rhythm Gastrointestinal: normoactive bowel sounds, non-tender, non-distended Extremities: no cyanosis, no edema Neurologic: normal mental status, non-focal exam, CN II-XII normal, motor strength normal and Psychiatric: mood appropriate, affect normal CBC and BMP: 06/26/17 05:43 06/26/17 05:43 ABG, PT/INR, D-dimer: ABG POC ABG pH 7.365 (7.35-7.45) 06/25/17 16:19 POC ABG pCO2 49.9 (35-45) H 06/25/17 16:19 POC ABG pO2 66 (80-105) L 06/25/17 16:19 POC ABG HCO3 28.5 06/25/17 16:19 POC ABG Total CO2 30 06/25/17 16:19 POC ABG O2 Sat 92 06/25/17 16:19 Abnormal lab findings: Abnormal Labs 06/25/17 06/25/17 06/25/17 13:11 13:11 15:45 WBC RBC 5.11 H MCV 71 L MCH 22 L RDW 19.3 H Lymph % (Auto) Seg Neutrophils % Seg Neuts % (Manual) 78.0 H Seg Neutrophils # Seg Neutrophils # Man 8.0 H POC ABG pCO2 POC ABG pO2 Chloride Creatinine 0.5 L Glucose 134 H NT-Pro-B Natriuret Pep 1693 H Total Protein Albumin Ur Specific [place] 06/25/17 06/25/17 06/26/17 16:00 16:19 05:43 WBC 12.3 H RBC MCV 72 L MCH 22 L RDW 19.5 H Lymph % (Auto) 10.7 L Seg Neutrophils % 85.9 H Seg Neuts % (Manual) Seg Neutrophils # 10.6 H Seg Neutrophils # Man POC ABG pCO2 49.9 H POC ABG pO2 66 L Chloride Creatinine Glucose NT-Pro-B Natriuret Pep Total Protein Albumin Ur Specific [place] 1.001 L 06/26/17 05:43 WBC RBC MCV MCH RDW Lymph % (Auto) Seg Neutrophils % Seg Neuts % (Manual) Seg Neutrophils # Seg Neutrophils # Man POC ABG pCO2 POC ABG pO2 Chloride 97.4 L Creatinine 0.4 L Glucose 158 H NT-Pro-B Natriuret Pep Total Protein 8.6 H Albumin 3.8 L Ur Specific [place] Chest x-ray: report reviewed, image reviewed
--- NOTE | 2017-06-30 11:31 | Discharge Summary ---
Providers - Providers Date of Admission: 06/25/17 19:28 Date of discharge: 06/30/17 Attending physician: LURDES ROBLES 06/26/17 13:08 Consult to Dietitian/Nutrition [CONS] Routine Physician Instructions: bmi 66 Reason For Exam: Reason for Consult: Diet education 06/27/17 11:30 Consult to Physician [CONS] Routine Consulting Provider: MANPREET TREVIÑO Reason For Exam: resp failure, claudia, bmi 67 Place consult to:: Myrna Notified:: yes Phone number called:: [phone] If yes, spoke with:: Jennie Time called:: 13:15 Primary care physician: [employer] Hospitalization Condition: Stable Hospital course: Patient is 31-year-old extremely obese woman BMI 88.2 with sequelae of health conditions such as sleep apnea noncompliant with CPAP, asthma who presents with acute shortness of breath with hypoxia pulse ox 87%. Chest x-ray shows right lower lobe infiltrates. -Acute hypoxic respiratory failure: Treated with oxygen -Acute asthma exacerbation: Treated with IV steroids and nebulizer treatments -Sepsis pneumonia, right lower lobe aspiration type: Treatment IV antibiotics -Extreme obesity BMI 88.2 with obesity hypoventilation syndrome suspected/sleep apnea: Counseling done, she says she is getting insurance next month and will reestablish care with physicians, consult dietitian -DVT prophylaxis: change lovenox to sq heparin due to weight Bariatric bed ordered and accurate weight done and BMI is actually 88.2 not 66.2 Patient pulse ox dropped into in the 70s when she walked to the nursing station. She need home oxygen, but she has no insurance so she will need to pay for it herself. The cost of O2 is 250.00 per month according to case management. Patient's insurance will start Jul.18 according to patient, so the o2 will be covered then. She doesn't want to pay for O2 until then. I told her she can't work or drive without O2. D/c once cleared by pulmonology. per pulmonology: "Community-acquired pneumonia. Resolved infiltrate on x-ray. Chronic respiratory acidosis. Possibly related to obesity hypoventilation syndrome. Asthma exacerbation. Controlled Obesity hypoventilation syndrome CLAUDIA by history Severe morbid obesity Recommendations 2 by mouth Complete antibiotics Outpatient treatment with Breo or Symbicort for wheezing at discharge Out of bed as tolerated. Incentive spirometry, continue as an outpatient DVT prophylaxis measures Weight control reduction diet Outpatient evaluation for her sleep apnea. We can do this at the office or she can continue her follow-up at [facility] clinic Discussed with patient in detail. Will sign off." I had a long discussion with patient, she doesn't want to pay for oxygen ( mostly likely to be prorated this month but she doesn't want to pay anything). She uses her mother oxygen tank when she needs. I will discharge her home with Oxygen and if she decides to pay for O2 then she can call the company. She is not cleared for work and no strenous activities stressed. Disposition: DC-01 TO HOME OR SELFCARE Time spent for discharge: 39 minutes Core Measure Documentation - Palliative Care Palliative Care/ Comfort Measures: Not Applicable - Core Measures Any of the following diagnoses?: none - VTE Discharge Requirements Deep Vein Thrombosis/Pulmonary Embolism Present on Admission: No Has pt received <5 days of overlap therapy or INR<2.0: No Anticoagulant overlap therapy prescribed at discharge: No Contraindication No Overlap Therapy order at DC: Not Indicated Exam - Physical Exam Narrative exam: GEN: Ill-appearing Morbid obese BMI 88.2 NAD, AWAKE, ALERT, ORIENTATED 3 HEENT: NCAT, EOMI, PERRL, OP Clear NECK: supple, no adenopathy, no thyromegaly, no JVD CVS/HEART: RRR, NORMAL S1S2, NO JVD, pulses present bilaterally CHEST/LUNGS: Bilateral rhonchi Symmetrical chest expansion, diminished entry bilaterally GI/Abdomen: soft, NTND, good bowel sounds, no guarding or rebound /Bladder: no suprapubic tenderness, no CVA or paraspinal tenderness EXT/Skin: no c/c/e, no obvious rash MSK: FROM x 4 Neuro: CN 2-12 grossly intact, no new focal deficits Psych: calm - Constitutional Vitals: Temp Pulse Resp BP Pulse Ox 97.7 F 87 16 134/82 97 06/30/17 07:48 06/30/17 08:35 06/30/17 08:35 06/30/17 07:48 06/30/17 08:34 Plan Activity: other (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 activity 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) Diet: low fat (2000 rupinder maximum per day including liquids calories) Special Instructions: home oxygen via Durable Medical Equipment Needed Upon Discharge: Oxygen, Nebulizer Follow up with: PRIMARY CAREMD [Primary Care Provider] - 7 Days DEVI WU MD [Staff Physician] - 7 Days Prescriptions: RX: ALBUTEROL NEB's [Proventil 0.083% NEBS] 2.5 mg IH Q3HRT PRN #30 day PRN Reason: Shortness Of Breath RX: Hydrochlorothiazide [HCTZ] 25 mg PO QDAY #30 tablet Levofloxacin [Levaquin] 750 mg PO QDAY #3 day methylPREDNISolone [Medrol Dose Juan] 1 dose PO DAILY #1 pack RX: Ipratropium/Albuterol Sulfate [DUONEB *Not for PRN Use*] 1 ampul IH TIDRT # 30 day Other Discharge Orders: Nebulizer (Amb) Location: Determined By Patient Oxygen (Amb) Location: Determined By Patient
[2017-06-30] MEDS: cefTRIAXone 2 GM in NACL 0.9% 20 ML IV SCH (11:41)
[2017-06-30 15:37] VITALS: BP 143/79
== END 2017-06-30 18:30 | disposition home or self-care (01) | DRG 871 ==
LOC: ED 12:41 → 3A 19:28
PROVIDERS: ADMIT Internal Medicine; ATTEND Internal Medicine
PROC: 4A033R1 Measurement of Arterial Saturation, Peripheral, Percutaneous Approach (ICD-10-PCS; principal; 2017-06-25)
DX: A41.9 Sepsis, unspecified organism (principal); J96.01 Acute respiratory failure with hypoxia; J69.0 Pneumonitis due to inhalation of food and vomit; Z68.45 Body mass index [BMI] 70 or greater, adult; J45.901 Unspecified asthma with (acute) exacerbation; E66.2 Morbid (severe) obesity with alveolar hypoventilation; Z91.19 Patient's noncompliance with other medical treatment and regimen
CPT/HCPCS: 36415; 71010; 71020; 80048; 80053; 81001; 81025; 82803; 83880; 85007; 85025; 87040; 93005; 93010; 94640; 94760; 96365; 96367; 96375; J0456; J0696; J1644; J2930; J3475; J7050

== ENCOUNTER 2020-08-07 14:33 | Inpatient (IN) | payer OTHER ==
--- NOTE | 2020-08-07 14:39 | Event Note ---
ED Screening Note ED Screening Note: morbidly obese AA asthmatic comes to ER with cp and sob sat 79 mom a/w dad dec ACS non smoker This initial assessment/diagnostic orders/clinical plan/treatment(s) is/are subject to change based on patients health status, clinical progression and re- assessment by fellow clinical providers in the ED. Further treatment and workup at subsequent clinical providers discretion. Patient/guardian urged not to elope from the ED as their condition may be serious if not clinically assessed and managed. Initial orders include: ro asthma ae/uri/covid/acs
[2020-08-07] MEDS ORDERED: IBUPROFEN 600 MG TAB PO ONE (15:45)
[2020-08-07 16:53] LABS: Basophils % (Auto) 0.6 % (0.0-1.8); Eosinophils # (Auto) 0.2 K/mm3 (0.0-0.4); Eosinophils % (Auto) 1.8 % (0.0-4.3); Lymphocytes # (Auto) 1.6 K/mm3 (1.2-5.4); Lymphocytes % (Auto) 19.2 % (13.4-35.0); Mean Corpuscular HGB Conc 29 % (30-34); Mean Corpuscular Volume 75 fl (79-97); Monocytes # (Auto) 0.6 K/mm3 (0.0-0.8); Monocytes % (Auto) 7.1 % (0.0-7.3); Platelet Count 284 K/mm3 (140-440); Red Blood Count 4.72 M/mm3 (3.65-5.03); Red Cell Distribution Width 19.7 % (13.2-15.2)
[2020-08-07 16:55] LABS: Hemoglobin 10.4 gm/dl (10.1-14.3)
[2020-08-07 16:56] LABS: Hematocrit 35.4 % (30.3-42.9)
[2020-08-07 17:15] LABS: Alanine Aminotransferase 25 units/L (7-56); Albumin 3.5 g/dL (3.9-5); Blood Urea Nitrogen 7 mg/dL (7-17); Calcium 8.7 mg/dL (8.4-10.2); Hemolysis Index 68
[2020-08-07 17:18] LABS: BUN/Creatinine Ratio 12
[2020-08-07 18:32] LABS: HCG Qualitative,Urine Negative (Negative)
[2020-08-07 18:36] LABS: Bacteria,Urine 1+ /HPF (Negative); Bilirubin,Urine NEG (Negative); Blood,Urine NEG (Negative); Color,Urine Yellow (Yellow); Mucus,Urine FEW /HPF; Urobilinogen,Urine < 2.0 mg/dL (<2.0)
--- NOTE | 2020-08-07 20:43 | XRay Report ---
CHEST 1 VIEW 08/07/2020 8:15 PM INDICATION / CLINICAL INFORMATION: Chest Pain. COMPARISON: 06/18/2018 FINDINGS: SUPPORT DEVICES: None. HEART / MEDIASTINUM: No significant abnormality. LUNGS / PLEURA: No significant pulmonary or pleural abnormality. No pneumothorax. ADDITIONAL FINDINGS: No significant additional findings. IMPRESSION: 1. No acute findings. Signer Name: Immanuel Hernandez MD Signed: 08/07/2020 8:38 PM Workstation Name: [id number]
[2020-08-07] MEDS ORDERED: MAGNESIUM SULFATE 2 GM/50 ML BAG IV ONE (21:04)
[2020-08-07] MEDS ORDERED: dexAMETHasone 4 MG/ML VIAL IV ONE (21:04)
[2020-08-07] MEDS ORDERED: ALBUTEROL 2.5 MG/3 ML NEBU IH ONE (21:05)
[2020-08-07] MEDS ORDERED: IPRATROPIUM 0.02% NEBU 2.5 ML IH ONE (21:05)
--- NOTE | 2020-08-07 21:08 | Emergency Department Report ---
ED General Adult HPI - General Chief complaint: Dyspnea/Respdistress Stated complaint: CHEST PAIN Time Seen by Provider: 08/07/20 14:36 Source: patient Mode of arrival: Ambulatory Limitations: No Limitations - History of Present Illness Initial comments: The patient presents to the emergency department with a chief complaint of shortness of breath that has been present for the last couple of days. Patient states she has had no relief of her shortness of breath with albuterol nebulizer treatments at home. Upon the patient's arrival to the ED her O2 sats was 77%. Patient was placed on 4 L of nasal cannula and O2 sats raised to 96%. -: Gradual Location: chest Radiation: non-radiation Severity scale (0 -10): 4 Quality: aching Consistency: constant Improves with: none Worsens with: none Associated Symptoms: denies other symptoms Treatments Prior to Arrival: none - Related Data Previous Rx's Medication Instructions Recorded Last Taken Type ALBUTEROL NEB's [Proventil 0.083% 2.5 mg IH Q3HRT PRN #30 day 06/30/17 Unknown Rx NEBS] Acetaminophen [Acetaminophen TAB] 325 mg PO Q4H PRN #30 tablet 06/30/17 Unknown Rx Famotidine [Pepcid] 20 mg PO BID #14 tablet 06/30/17 Unknown Rx Ipratropium/Albuterol Sulfate 1 ampul IH TIDRT #30 day 06/30/17 Unknown Rx [DUONEB *Not for PRN Use*] Albuterol Mdi (or & Nicu Only) 2 puff IH QID PRN #1 inhalation 06/20/18 Unknown Rx [ProAir HFA Inhaler] Azithromycin [Zithromax Z-BIN] 0 mg PO DAILY #1 tab 06/20/18 Unknown Rx Benzonatate [Tessalon Perles] 100 mg PO Q8HR #15 capsule 06/20/18 Unknown Rx hydroCHLOROthiazide [HCTZ] 25 mg PO QDAY #30 tablet 06/20/18 Unknown Rx predniSONE 10 mg PO DAILY #13 tablet 06/20/18 Unknown Rx Allergies Allergy/AdvReac Type Severity Reaction Status Date / Time No Known Allergies Allergy Unverified 01/27/17 11:17 ED Review of Systems ROS: Stated complaint: CHEST PAIN Other details as noted in HPI Constitutional: denies: chills, fever Eyes: denies: eye pain, eye discharge, vision change ENT: denies: ear pain, throat pain Respiratory: shortness of breath, wheezing. denies: cough Cardiovascular: denies: chest pain, palpitations Endocrine: no symptoms reported Gastrointestinal: denies: abdominal pain, nausea, diarrhea Genitourinary: denies: urgency, dysuria, discharge Musculoskeletal: denies: back pain, joint swelling, arthralgia Skin: denies: rash, lesions Neurological: denies: headache, weakness, paresthesias Psychiatric: denies: anxiety, depression Hematological/Lymphatic: denies: easy bleeding, easy bruising ED Past Medical Hx - Past Medical History Previous Medical History?: Yes Hx Hypertension: Yes Hx Asthma: Yes Additional medical history: Morbid obesity. Sleep apnea - Social History Smoking Status: Never Smoker - Medications Home Medications: Home Medications Medication Instructions Recorded Confirmed Last Taken Type ALBUTEROL NEB's [Proventil 0.083% 2.5 mg IH Q3HRT PRN #30 day 06/30/17 Unknown Rx NEBS] Acetaminophen [Acetaminophen TAB] 325 mg PO Q4H PRN #30 tablet 06/30/17 Unknown Rx Famotidine [Pepcid] 20 mg PO BID #14 tablet 06/30/17 Unknown Rx Ipratropium/Albuterol Sulfate 1 ampul IH TIDRT #30 day 06/30/17 Unknown Rx [DUONEB *Not for PRN Use*] Albuterol Mdi (or & Nicu Only) 2 puff IH QID PRN #1 inhalation 06/20/18 Unknown Rx [ProAir HFA Inhaler] Azithromycin [Zithromax Z-BIN] 0 mg PO DAILY #1 tab 06/20/18 Unknown Rx Benzonatate [Tessalon Perles] 100 mg PO Q8HR #15 capsule 06/20/18 Unknown Rx hydroCHLOROthiazide [HCTZ] 25 mg PO QDAY #30 tablet 06/20/18 Unknown Rx predniSONE 10 mg PO DAILY #13 tablet 06/20/18 Unknown Rx ED Physical Exam - General Limitations: No Limitations General appearance: alert, in no apparent distress - Head Head exam: Present: atraumatic, normocephalic - Eye Eye exam: Present: normal appearance, PERRL, EOMI - ENT ENT exam: Present: mucous membranes moist - Neck Neck exam: Present: normal inspection - Respiratory Respiratory exam: Present: wheezes, accessory muscle use. Absent: respiratory distress - Cardiovascular Cardiovascular Exam: Present: normal rhythm, tachycardia. Absent: systolic murmur, diastolic murmur, rubs, gallop - GI/Abdominal GI/Abdominal exam: Present: soft, normal bowel sounds. Absent: distended, tende rness - Extremities Exam Extremities exam: Present: normal inspection - Back Exam Back exam: Present: normal inspection - Neurological Exam Neurological exam: Present: alert, oriented X3, CN II-XII intact. Absent: motor sensory deficit - Psychiatric Psychiatric exam: Present: normal affect, normal mood - Skin Skin exam: Present: warm, dry, intact, normal color. Absent: rash ED Course Vital Signs 08/07/20 08/07/20 08/07/20 14:35 14:46 18:33 Temperature 98.3 F Pulse Rate 112 H 70 Pulse Rate [ Bilateral] Respiratory 26 H 20 Rate Respiratory Rate [Bilateral ] Blood Pressure 166/103 [Right] O2 Sat by Pulse 77 L 96 99 Oximetry 08/07/20 22:11 Temperature Pulse Rate Pulse Rate [ 96 H Bilateral] Respiratory Rate Respiratory 22 Rate [Bilateral ] Blood Pressure [Right] O2 Sat by Pulse Oximetry ED Medical Decision Making - Lab Data Result diagrams: 08/07/20 16:13 08/07/20 16:13 Lab Results 08/07/20 08/07/20 08/07/20 Range/Units 16:13 16:13 17:38 WBC 8.5 (4.5-11.0) K/mm3 RBC 4.72 (3.65-5.03) M/mm3 Hgb 10.4 (10.1-14.3) gm/dl Hct 35.4 (30.3-42.9) % MCV 75 L (79-97) fl MCH 22 L (28-32) pg MCHC 29 L (30-34) % RDW 19.7 H (13.2-15.2) % Plt Count 284 (140-440) K/mm3 Lymph % (Auto) 19.2 (13.4-35.0) % [place] % (Auto) 7.1 (0.0-7.3) % Eos % (Auto) 1.8 (0.0-4.3) % Baso % (Auto) 0.6 (0.0-1.8) % Lymph # (Auto) 1.6 (1.2-5.4) K/mm3 [place] # (Auto) 0.6 (0.0-0.8) K/mm3 Eos # (Auto) 0.2 (0.0-0.4) K/mm3 Baso # (Auto) 0.0 (0.0-0.1) K/mm3 Seg Neutrophils % 71.3 H (40.0-70.0) % Seg Neutrophils # 6.1 (1.8-7.7) K/mm3 ABG pH (7.350-7.450) pH Units ABG pCO2 mm Hg ABG pO2 (80.0-90.0) mm Hg ABG HCO3 (20.0-26.0) mmol/L ABG O2 Saturation (95.0-99.0) % ABG O2 Content (0.0-44) ABG Base Excess (-2.0-3.0) mmol/L ABG Hemoglobin (12.0-16.0) gm/dl ABG Carboxyhemoglobin (0.0-5.0) % ABG Methemoglobin (0.0-1.5) % Oxyhemoglobin (95.0-99.0) % FiO2 % Sodium 136 L (137-145) mmol/L Potassium 4.8 (3.6-5.0) mmol/L Chloride 94.7 L (98-107) mmol/L Carbon Dioxide 36 H (22-30) mmol/L Anion Gap 10 mmol/L BUN 7 (7-17) mg/dL Creatinine 0.6 (0.6-1.2) mg/dL Estimated GFR > 60 ml/min BUN/Creatinine Ratio 12 % Glucose 94 (65-100) mg/dL Calcium 8.7 (8.4-10.2) mg/dL Total Bilirubin 0.30 (0.1-1.2) mg/dL AST 28 (5-40) units/L ALT 25 (7-56) units/L Alkaline Phosphatase 108 (35-129) units/L Troponin T < 0.010 (0.00-0.029) ng/mL Total Protein 8.7 H (6.3-8.2) g/dL Albumin 3.5 L (3.9-5) g/dL Albumin/Globulin Ratio 0.7 % Urine Color Yellow (Yellow) Urine Turbidity Slightly-cloudy (Clear) Urine pH 7.0 (5.0-7.0) Ur Specific Grace 1.012 (1.003-1.030) Urine Protein 30 mg/dl (Negative) mg/dL Urine Glucose (UA) Neg (Negative) mg/dL Urine Ketones Neg (Negative) mg/dL Urine Blood Neg (Negative) Urine Nitrite Neg (Negative) Ur Reducing Substances Not Reportable Urine Bilirubin Neg (Negative) Urine Ictotest Not Reportable Urine Urobilinogen < 2.0 (<2.0) mg/dL Ur Leukocyte Esterase Tr (Negative) Urine WBC (Auto) 1.0 (0.0-6.0) /HPF Urine RBC (Auto) 1.0 (0.0-6.0) /HPF U Epithel Cells (Auto) 8.0 (0-13.0) /HPF Urine Bacteria (Auto) 1+ (Negative) /HPF Urine Mucus Few /HPF Urine HCG, Qual Negative (Negative) 08/07/20 08/07/20 Range/Units 20:16 22:05 WBC (4.5-11.0) K/mm3 RBC (3.65-5.03) M/mm3 Hgb (10.1-14.3) gm/dl Hct (30.3-42.9) % MCV (79-97) fl MCH (28-32) pg MCHC (30-34) % RDW (13.2-15.2) % Plt Count (140-440) K/mm3 Lymph % (Auto) (13.4-35.0) % [place] % (Auto) (0.0-7.3) % Eos % (Auto) (0.0-4.3) % Baso % (Auto) (0.0-1.8) % Lymph # (Auto) (1.2-5.4) K/mm3 [place] # (Auto) (0.0-0.8) K/mm3 Eos # (Auto) (0.0-0.4) K/mm3 Baso # (Auto) (0.0-0.1) K/mm3 Seg Neutrophils % (40.0-70.0) % Seg Neutrophils # (1.8-7.7) K/mm3 ABG pH 7.362 (7.350-7.450) pH Units ABG pCO2 64.3 mm Hg ABG pO2 61.4 L (80.0-90.0) mm Hg ABG HCO3 35.7 H (20.0-26.0) mmol/L ABG O2 Saturation 90.8 L (95.0-99.0) % ABG O2 Content 12.0 (0.0-44) ABG Base Excess 8.7 H (-2.0-3.0) mmol/L ABG Hemoglobin 9.6 L (12.0-16.0) gm/dl ABG Carboxyhemoglobin 1.9 (0.0-5.0) % ABG Methemoglobin 0.5 (0.0-1.5) % Oxyhemoglobin 88.7 L (95.0-99.0) % FiO2 21 % Sodium (137-145) mmol/L Potassium (3.6-5.0) mmol/L Chloride (98-107) mmol/L Carbon Dioxide (22-30) mmol/L Anion Gap mmol/L BUN (7-17) mg/dL Creatinine (0.6-1.2) mg/dL Estimated GFR ml/min BUN/Creatinine Ratio % Glucose (65-100) mg/dL Calcium (8.4-10.2) mg/dL Total Bilirubin (0.1-1.2) mg/dL AST (5-40) units/L ALT (7-56) units/L Alkaline Phosphatase (35-129) units/L Troponin T < 0.010 (0.00-0.029) ng/mL Total Protein (6.3-8.2) g/dL Albumin (3.9-5) g/dL Albumin/Globulin Ratio % Urine Color (Yellow) Urine Turbidity (Clear) Urine pH (5.0-7.0) Ur Specific Grace (1.003-1.030) Urine Protein (Negative) mg/dL Urine Glucose (UA) (Negative) mg/dL Urine Ketones (Negative) mg/dL Urine Blood (Negative) Urine Nitrite (Negative) Ur Reducing Substances Urine Bilirubin (Negative) Urine Ictotest Urine Urobilinogen (<2.0) mg/dL Ur Leukocyte Esterase (Negative) Urine WBC (Auto) (0.0-6.0) /HPF Urine RBC (Auto) (0.0-6.0) /HPF U Epithel Cells (Auto) (0-13.0) /HPF Urine Bacteria (Auto) (Negative) /HPF Urine Mucus /HPF Urine HCG, Qual (Negative) - Radiology Data Radiology results: report reviewed - Medical Decision Making The patient's O2 sats was 77% on arrival patient was placed on O2 via nasal cannula with O2 sats decreasing to the mid 90s ABG shows a PO2 of approximately 61 with O2 sat of 90%. Upon me taken the patient off O2 her sats dropped into the low 80s Patient received a continuous breathing treatment, magnesium, Solu-Medrol prior to me removing her oxygen for further evaluation. D-dimer will be obtained and followed by admitting team with the plan to give her Lovenox if its elevated and VQ scan in the a.m. Critical Care Time: Yes Critical care time in (mins) excluding proc time.: 45 Critical care attestation.: If time is entered above; I have spent that time in minutes in the direct care of this critically ill patient, excluding procedure time. ED Disposition Clinical Impression: Hypoxia, Asthma with severe exacerbation Disposition: OP ADMIT IP TO THIS HOSP Is pt being admited?: Yes Does the pt Need Aspirin: Yes Condition: Fair Referrals: PRIMARY CARE, [Primary Care Provider] - 3-5 Days
[2020-08-07 22:23] LABS: ABG Base Excess 8.7 mmol/L (-2.0-3.0); ABG HCO3 35.7 mmol/L (20.0-26.0); ABG Methemoglobin 0.5 % (0.0-1.5); ABG Oxygen Saturation 90.8 % (95.0-99.0); ABG PCO2 64.3 mm Hg; ABG PH 7.362 pH Units (7.350-7.450); ABG PO2 61.4 mm Hg (80.0-90.0)
[2020-08-07] MEDS ORDERED: ONDANSETRON 4 MG/2 ML INJ IV PRN (23:22)
[2020-08-07] MEDS ORDERED: MAGNESIUM HYDROXIDE (MOM) ORAL LIQD UDC PO PRN (23:22)
[2020-08-07] MEDS ORDERED: MORPHINE 2 MG/1 ML INJ IV PRN (23:22)
[2020-08-07] MEDS ORDERED: ACETAMINOPHEN 325 MG TAB PO PRN (23:22)
[2020-08-07] MEDS ORDERED: SODIUM CHLORIDE 0.9% 1000 ML 1,000 ML IV SCH (23:30)
--- NOTE | 2020-08-07 23:35 | History and Physical Report ---
History of Present Illness Date of examination: 08/07/20 Date of admission: 08/07/2020 Chief complaint: Shortness of Breath History of present illness: 34-year-old female with known history of asthma and hypertension presenting to the emergency room today complaining of shortness of breath which has been ongoing for the past few days. She has been using her albuterol nebulizing treatments at home without any significant improvement. She denies any chest pain, no fever or chills, no nausea vomiting, no headache or dizziness. She denies any sick contacts and no recent travel. Denies any contact with anyone with COVID-19. Upon arrival in the emergency room patient's oxygen saturation was about 77%. He was placed on oxygen 4 L of nasal cannula with improvement of oxygen saturation to 96%. Work-up in the emergency room reveals elevated D-dimer. Chest x-ray showed no acute findings. CT angiogram could not be done because of patient's size. Patient is being admitted with asthma exacerbation with hypoxia. Patient will be scheduled for VQ scan in the a.m. to evaluate for possible pulmonary embolism. Past History Past Medical History: hypertension, other (Asthma,Morbid Obesity ) Past Surgical History: No surgical history Social history: no significant social history Family history: no significant family history Medications and Allergies Allergies Allergy/AdvReac Type Severity Reaction Status Date / Time No Known Allergies Allergy Unverified 01/27/17 11:17 Home Medications Medication Instructions Recorded Confirmed Last Taken Type ALBUTEROL NEB's [Proventil 0.083% 2.5 mg IH Q3HRT PRN #30 day 06/30/17 Unknown Rx NEBS] Acetaminophen [Acetaminophen TAB] 325 mg PO Q4H PRN #30 tablet 06/30/17 Unknown Rx Famotidine [Pepcid] 20 mg PO BID #14 tablet 06/30/17 Unknown Rx Ipratropium/Albuterol Sulfate 1 ampul IH TIDRT #30 day 06/30/17 Unknown Rx [DUONEB *Not for PRN Use*] Albuterol Mdi (or & Nicu Only) 2 puff IH QID PRN #1 inhalation 06/20/18 Unknown Rx [ProAir HFA Inhaler] Azithromycin [Zithromax Z-BIN] 0 mg PO DAILY #1 tab 06/20/18 Unknown Rx Benzonatate [Tessalon Perles] 100 mg PO Q8HR #15 capsule 06/20/18 Unknown Rx hydroCHLOROthiazide [HCTZ] 25 mg PO QDAY #30 tablet 06/20/18 Unknown Rx predniSONE 10 mg PO DAILY #13 tablet 06/20/18 Unknown Rx Active Meds: Active Medications Acetaminophen (Acetaminophen 325 Mg Tab) 650 mg PO Q4H PRN PRN Reason: Pain MILD(1-3)/Fever >100.5/BROWN Albuterol/Ipratropium (Ipratropium/Albuterol Sulfate 3 Ml Ampul.Neb) 1 ampul IH Q6HRT EKATERINA Sodium Chloride (Nacl 0.9% 1000 Ml) 1,000 mls @ 125 mls/hr IV DIRECT EKATERINA Magnesium Hydroxide (Magnesium Hydroxide (Mom) Oral Liqd Udc) 30 ml PO Q4H PRN PRN Reason: Constipation Methylprednisolone Sodium Succinate (Methylprednisolone Sod Succinate 40 Mg/1 Ml Inj) 40 mg IV Q8HR EKATERINA Morphine Sulfate (Morphine 2 Mg/1 Ml Inj) 2 mg IV Q4H PRN PRN Reason: Pain, Moderate (4-6) Ondansetron HCl (Ondansetron 4 Mg/2 Ml Inj) 4 mg IV Q8H PRN PRN Reason: Nausea And Vomiting Sodium Chloride (Sodium Chloride 0.9% 10 Ml Flush Syringe) 10 ml IV BID EKATERINA Sodium Chloride (Sodium Chloride 0.9% 10 Ml Flush Syringe) 10 ml IV PRN PRN PRN Reason: LINE FLUSH Review of Systems Constitutional: no fever, no chills, no fatigue Ears, nose, mouth and throat: no nasal congestion, no sore throat Cardiovascular: no chest pain, no palpitations Respiratory: shortness of breath, wheezing, no cough Gastrointestinal: no abdominal pain, no nausea, no vomiting, no diarrhea Genitourinary Female: no pelvic pain, no flank pain, no dysuria Musculoskeletal: no neck pain, no low back pain Integumentary: no rash, no pruritis Neurological: no headaches, no confusion Psychiatric: no anxiety, no depression Exam - Constitutional Vitals: Temp Pulse Resp BP Pulse Ox 98.3 F 96 H 22 166/103 99 08/07/20 14:35 08/07/20 22:11 08/07/20 22:11 08/07/20 14:35 08/07/20 18:33 General appearance: Present: no acute distress, well-nourished, obese - EENT Eyes: Present: PERRL, EOM intact. Absent: scleral icterus ENT: hearing intact, clear oral mucosa, dentition normal - Neck Neck: Present: supple, normal ROM - Respiratory Respiratory effort: normal Respiratory: bilateral: wheezing - Cardiovascular Rhythm: regular Heart Sounds: Present: S1 & S2. Absent: gallop, systolic murmur, diastolic murmur, rub, click - Extremities Extremities: no ischemia, pulses intact, pulses symmetrical, Full ROM Peripheral Pulses: within normal limits - Abdominal General gastrointestinal: Present: soft, non-tender, distended (Obese.), normal bowel sounds, mass - Integumentary Integumentary: Present: clear, warm, dry. Absent: rash - Musculoskeletal Musculoskeletal: strength equal bilaterally - Psychiatric Psychiatric: appropriate mood/affect, intact judgment & insight, memory intact, cooperative - Neurologic Neurologic: CNII-XII intact, no focal deficits, moves all extremities HEART Score - HEART Score Troponin: Troponin T < 0.010 ng/mL (0.00-0.029) 08/07/20 20:16 Results - Labs CBC & Chem 7: 08/07/20 16:13 08/07/20 16:13 Labs: Abnormal lab results 08/07/20 08/07/20 08/07/20 Range/Units 16:13 16:13 22:05 MCV 75 L (79-97) fl MCH 22 L (28-32) pg MCHC 29 L (30-34) % RDW 19.7 H (13.2-15.2) % Seg Neutrophils % 71.3 H (40.0-70.0) % ABG pO2 61.4 L (80.0-90.0) mm Hg ABG HCO3 35.7 H (20.0-26.0) mmol/L ABG O2 Saturation 90.8 L (95.0-99.0) % ABG Base Excess 8.7 H (-2.0-3.0) mmol/L ABG Hemoglobin 9.6 L (12.0-16.0) gm/dl Oxyhemoglobin 88.7 L (95.0-99.0) % Sodium 136 L (137-145) mmol/L Chloride 94.7 L (98-107) mmol/L Carbon Dioxide 36 H (22-30) mmol/L Total Protein 8.7 H (6.3-8.2) g/dL Albumin 3.5 L (3.9-5) g/dL Assessment and Plan - Patient Problems (1) Asthma with severe exacerbation Current Visit: Yes Status: Acute Plan to address problem: Patient placed on nebulizing treatments and IV steroid. Will monitor oxygen saturation closely. (2) Hypoxia Current Visit: Yes Status: Acute Plan to address problem: Patient placed on oxygen by nasal cannula. We will keep O2 saturation greater or equal to 94%. (3) Morbid obesity with BMI of 70 and over, adult Current Visit: Yes Status: Acute Plan to address problem: Patient has BMI of 81.5 Dietary consult placed. (4) DVT prophylaxis Current Visit: Yes Status: Acute Plan to address problem: Patient placed on anticoagulation with subcutaneous Lovenox. She has been given subcutaneous Lovenox 1 mg/kg meanwhile pending when VQ scan will be done. (5) Full code status Current Visit: Yes Status: Acute Plan to address problem: Patient is a full code.
[2020-08-08] MEDS ORDERED: ENOXAPARIN 150 MG/1 ML INJ SUB-Q ONE (01:15)
[2020-08-08] MEDS: IPRATROPIUM/ALBUTEROL SULFATE 3 ML AMPUL.NEB IH SCH ×4 (04:23→20:49)
[2020-08-08] MEDS: methylPREDNISolone Sod Succinate 40 MG/1 ML INJ IV SCH ×3 (05:52→21:39)
[2020-08-08 06:23] LABS: Basophils % (Auto) 0.2 % (0.0-1.8); Eosinophils % (Auto) 0.1 % (0.0-4.3); Lymphocytes # (Auto) 0.8 K/mm3 (1.2-5.4); Lymphocytes % (Auto) 8.6 % (13.4-35.0); Mean Corpuscular HGB Conc 30 % (30-34); Mean Corpuscular Volume 74 fl (79-97); Monocytes # (Auto) 0.3 K/mm3 (0.0-0.8); Platelet Count 281 K/mm3 (140-440); Red Blood Count 4.35 M/mm3 (3.65-5.03); Red Cell Distribution Width 19.2 % (13.2-15.2)
[2020-08-08 06:29] LABS: Hemoglobin 9.6 gm/dl (10.1-14.3)
[2020-08-08 06:34] LABS: INR 1.2 (0.87-1.13)
[2020-08-08 06:45] LABS: Blood Urea Nitrogen 7 mg/dL (7-17); Calcium 8.6 mg/dL (8.4-10.2); Hemolysis Index 9
[2020-08-08 06:52] LABS: BUN/Creatinine Ratio 14
--- NOTE | 2020-08-08 10:39 | Progress Note ---
Assessment and Plan Assessment and plan: Acute asthma exacerbation. Continue bronchodilators and IV steroids. O2 to make sats greater than 92%. Acute hypoxic respiratory failure. Etiology secondary to above. Continue O2 to maintain sats. Morbid obesity. Patient has a BMI of 81.5. Patient will be counseled on diet, exercise and lifestyle modifications prior to discharge. Elevated D-dimer. Check lower extremity Doppler studies for risk stratification. Body habitus too large for CTA chest. Empiric Lovenox presently History Interval history: No new issues overnight. Hospitalist Physical - Constitutional Vitals: Temp Pulse Resp BP Pulse Ox 97.7 F 89 20 142/78 96 08/08/20 04:47 08/08/20 08:00 08/08/20 08:00 08/08/20 04:47 08/08/20 08:47 General appearance: Present: no acute distress, well-nourished, obese - EENT Eyes: Present: PERRL, EOM intact ENT: hearing intact, clear oral mucosa, dentition normal - Neck Neck: Present: supple, normal ROM - Respiratory Respiratory effort: normal Respiratory: bilateral: CTA - Cardiovascular Rhythm: regular Heart Sounds: Present: S1 & S2. Absent: gallop, rub - Extremities Extremities: no ischemia, No edema, Full ROM - Abdominal General gastrointestinal: soft, non-tender, non-distended, normal bowel sounds - Integumentary Integumentary: Present: clear, warm, dry - Neurologic Neurologic: CNII-XII intact, moves all extremities HEART Score - HEART Score Troponin: Troponin T < 0.010 ng/mL (0.00-0.029) 08/07/20 20:16 Results - Labs CBC & Chem 7: 08/08/20 04:31 08/08/20 04:31 Labs: Laboratory Last Values WBC 9.8 K/mm3 (4.5-11.0) 08/08/20 04:31 RBC 4.35 M/mm3 (3.65-5.03) 08/08/20 04:31 Hgb 9.6 gm/dl (10.1-14.3) L 08/08/20 04:31 Hct 32.0 % (30.3-42.9) 08/08/20 04:31 MCV 74 fl (79-97) L 08/08/20 04:31 MCH 22 pg (28-32) L 08/08/20 04:31 MCHC 30 % (30-34) 08/08/20 04:31 RDW 19.2 % (13.2-15.2) H 08/08/20 04:31 Plt Count 281 K/mm3 (140-440) 08/08/20 04:31 Lymph % (Auto) 8.6 % (13.4-35.0) L 08/08/20 04:31 [place] % (Auto) 3.0 % (0.0-7.3) 08/08/20 04:31 Eos % (Auto) 0.1 % (0.0-4.3) 08/08/20 04:31 Baso % (Auto) 0.2 % (0.0-1.8) 08/08/20 04:31 Lymph # (Auto) 0.8 K/mm3 (1.2-5.4) L 08/08/20 04:31 [place] # (Auto) 0.3 K/mm3 (0.0-0.8) 08/08/20 04:31 Eos # (Auto) 0.0 K/mm3 (0.0-0.4) 08/08/20 04:31 Baso # (Auto) 0.0 K/mm3 (0.0-0.1) 08/08/20 04:31 Seg Neutrophils % 88.1 % (40.0-70.0) H 08/08/20 04:31 Seg Neutrophils # 8.6 K/mm3 (1.8-7.7) H 08/08/20 04:31 PT 15.2 Sec. (12.2-14.9) H 08/08/20 04:31 INR 1.20 (0.87-1.13) H 08/08/20 04:31 D-Dimer 762.58 ng/mlDDU (0-234) H 08/07/20 23:13 ABG pH 7.362 pH Units (7.350-7.450) 08/07/20 22:05 ABG pCO2 64.3 mm Hg 08/07/20 22:05 ABG pO2 61.4 mm Hg (80.0-90.0) L 08/07/20 22:05 ABG HCO3 35.7 mmol/L (20.0-26.0) H 08/07/20 22:05 ABG O2 Saturation 90.8 % (95.0-99.0) L 08/07/20 22:05 ABG O2 Content 12.0 (0.0-44) 08/07/20 22:05 ABG Base Excess 8.7 mmol/L (-2.0-3.0) H 08/07/20 22:05 ABG Hemoglobin 9.6 gm/dl (12.0-16.0) L 08/07/20 22:05 ABG Carboxyhemoglobin 1.9 % (0.0-5.0) 08/07/20 22:05 ABG Methemoglobin 0.5 % (0.0-1.5) 08/07/20 22:05 Oxyhemoglobin 88.7 % (95.0-99.0) L 08/07/20 22:05 FiO2 21 % 08/07/20 22:05 Sodium 138 mmol/L (137-145) 08/08/20 04:31 Potassium 5.3 mmol/L (3.6-5.0) H 08/08/20 04:31 Chloride 95.2 mmol/L (98-107) L 08/08/20 04:31 Carbon Dioxide 36 mmol/L (22-30) H 08/08/20 04:31 Anion Gap 12 mmol/L 08/08/20 04:31 BUN 7 mg/dL (7-17) 08/08/20 04:31 Creatinine 0.5 mg/dL (0.6-1.2) L 08/08/20 04:31 Estimated GFR > 60 ml/min 08/08/20 04:31 BUN/Creatinine Ratio 14 % 08/08/20 04:31 Glucose 163 mg/dL (65-100) H 08/08/20 04:31 Calcium 8.6 mg/dL (8.4-10.2) 08/08/20 04:31 Total Bilirubin 0.30 mg/dL (0.1-1.2) 08/07/20 16:13 AST 28 units/L (5-40) 08/07/20 16:13 ALT 25 units/L (7-56) 08/07/20 16:13 Alkaline Phosphatase 108 units/L (35-129) 08/07/20 16:13 Troponin T < 0.010 ng/mL (0.00-0.029) 08/07/20 20:16 Total Protein 8.7 g/dL (6.3-8.2) H 08/07/20 16:13 Albumin 3.5 g/dL (3.9-5) L 08/07/20 16:13 Albumin/Globulin Ratio 0.7 % 08/07/20 16:13 Urine Color Yellow (Yellow) 08/07/20 17:38 Urine Turbidity Slightly-cloudy (Clear) 08/07/20 17:38 Urine pH 7.0 (5.0-7.0) 08/07/20 17:38 Ur Specific [place] 1.012 (1.003-1.030) 08/07/20 17:38 Urine Protein 30 mg/dl mg/dL (Negative) 08/07/20 17:38 Urine Glucose (UA) Neg mg/dL (Negative) 08/07/20 17:38 Urine Ketones Neg mg/dL (Negative) 08/07/20 17:38 Urine Blood Neg (Negative) 08/07/20 17:38 Urine Nitrite Neg (Negative) 08/07/20 17:38 Ur Reducing Substances Not Reportable 08/07/20 17:38 Urine Bilirubin Neg (Negative) 08/07/20 17:38 Urine Ictotest Not Reportable 08/07/20 17:38 Urine Urobilinogen < 2.0 mg/dL (<2.0) 08/07/20 17:38 Ur Leukocyte Esterase Tr (Negative) 08/07/20 17:38 Urine WBC (Auto) 1.0 /HPF (0.0-6.0) 08/07/20 17:38 Urine RBC (Auto) 1.0 /HPF (0.0-6.0) 08/07/20 17:38 U Epithel Cells (Auto) 8.0 /HPF (0-13.0) 08/07/20 17:38 Urine Bacteria (Auto) 1+ /HPF (Negative) 08/07/20 17:38 Urine Mucus Few /HPF 08/07/20 17:38 Urine HCG, Qual Negative (Negative) 08/07/20 17:38 Zambrano/IV: Voiding Method Toilet IV Catheter Type [Left Hand] INT / Saline Lock Active Medications - Current Medications Current Medications: Generic Name Dose Route Start Last Admin Trade Name Freq PRN Reason Stop Dose Admin Acetaminophen 650 mg 08/07/20 23:22 Acetaminophen 325 Mg Tab PO Q4H PRN Pain MILD(1-3)/Fever >100.5/BROWN Albuterol/Ipratropium 1 ampul 08/08/20 02:00 08/08/20 08:10 Ipratropium/Albuterol Sulfate 3 Ml Ampul.Neb IH 1 ampul Q6HRT EKATERINA Administration Sodium Chloride 1,000 mls @ 125 mls/hr 08/07/20 23:30 Nacl 0.9% 1000 Ml IV DIRECT EKATERINA Magnesium Hydroxide 30 ml 08/07/20 23:22 Magnesium Hydroxide (Mom) Oral Liqd Udc PO Q4H PRN Constipation Methylprednisolone Sodium Succinate 40 mg 08/08/20 06:00 08/08/20 05:52 Methylprednisolone Sod Succinate 40 Mg/1 Ml Inj IV 40 mg Q8HR EKATERINA Administration Morphine Sulfate 2 mg 08/07/20 23:22 Morphine 2 Mg/1 Ml Inj IV Q4H PRN Pain, Moderate (4-6) Ondansetron HCl 4 mg 08/07/20 23:22 Ondansetron 4 Mg/2 Ml Inj IV Q8H PRN Nausea And Vomiting Sodium Chloride 10 ml 08/08/20 10:00 08/08/20 10:13 Sodium Chloride 0.9% 10 Ml Flush Syringe IV 10 ml BID EKATERINA Administration Sodium Chloride 10 ml 08/07/20 23:22 Sodium Chloride 0.9% 10 Ml Flush Syringe IV PRN PRN LINE FLUSH
--- NOTE | 2020-08-08 12:50 | Consultation ---
History of Present Illness Consult date: 08/08/20 Requesting physician: CIRO HEATON Reason for consult: asthma History of present illness: PULMONARY/CCM CONSULT NOTE (Full dictation # [id number]) Please see dictated notes for full details Past History Past Medical History: hypertension, other (Asthma,Morbid Obesity ) Past Surgical History: No surgical history Social history: no significant social history Family history: no significant family history Medications and Allergies Allergies Allergy/AdvReac Type Severity Reaction Status Date / Time No Known Allergies Allergy Unverified 01/27/17 11:17 Home Medications Medication Instructions Recorded Confirmed Last Taken Type ALBUTEROL NEB's [Proventil 0.083% 2.5 mg IH Q3HRT PRN #30 day 06/30/17 08/08/20 Unknown Rx NEBS] Acetaminophen [Acetaminophen TAB] 325 mg PO Q4H PRN #30 tablet 06/30/17 08/08/20 Unknown Rx Famotidine [Pepcid] 20 mg PO BID #14 tablet 06/30/17 08/08/20 Unknown Rx Ipratropium/Albuterol Sulfate 1 ampul IH TIDRT #30 day 06/30/17 08/08/20 Unknown Rx [DUONEB *Not for PRN Use*] Albuterol Mdi (or & Nicu Only) 2 puff IH QID PRN #1 inhalation 06/20/18 08/08/20 Unknown Rx [ProAir HFA Inhaler] Azithromycin [Zithromax Z-BIN] 0 mg PO DAILY #1 tab 06/20/18 08/08/20 Unknown Rx Benzonatate [Tessalon Perles] 100 mg PO Q8HR #15 capsule 06/20/18 08/08/20 Unknown Rx hydroCHLOROthiazide [HCTZ] 25 mg PO QDAY #30 tablet 06/20/18 08/08/20 Unknown Rx predniSONE 10 mg PO DAILY #13 tablet 06/20/18 08/08/20 Unknown Rx Active Meds: Active Medications Acetaminophen (Acetaminophen 325 Mg Tab) 650 mg PO Q4H PRN PRN Reason: Pain MILD(1-3)/Fever >100.5/BROWN Albuterol/Ipratropium (Ipratropium/Albuterol Sulfate 3 Ml Ampul.Neb) 1 ampul IH Q6HRT EKATERINA Last Admin: 08/08/20 08:10 Dose: 1 ampul Documented by: Sodium Chloride (Nacl 0.9% 1000 Ml) 1,000 mls @ 125 mls/hr IV DIRECT [facility] Magnesium Hydroxide (Magnesium Hydroxide (Mom) Oral Liqd Udc) 30 ml PO Q4H PRN PRN Reason: Constipation Methylprednisolone Sodium Succinate (Methylprednisolone Sod Succinate 40 Mg/1 Ml Inj) 40 mg IV Q8HR [facility] Last Admin: 08/08/20 05:52 Dose: 40 mg Documented by: Morphine Sulfate (Morphine 2 Mg/1 Ml Inj) 2 mg IV Q4H PRN PRN Reason: Pain, Moderate (4-6) Ondansetron HCl (Ondansetron 4 Mg/2 Ml Inj) 4 mg IV Q8H PRN PRN Reason: Nausea And Vomiting Sodium Chloride (Sodium Chloride 0.9% 10 Ml Flush Syringe) 10 ml IV BID [facility] Last Admin: 08/08/20 10:13 Dose: 10 ml Documented by: Sodium Chloride (Sodium Chloride 0.9% 10 Ml Flush Syringe) 10 ml IV PRN PRN PRN Reason: LINE FLUSH Physical Examination Vital signs: Vital Signs Temp Pulse Resp BP Pulse Ox 98.3 F 112 H 26 H 166/103 77 L 08/07/20 14:35 08/07/20 14:35 08/07/20 14:35 08/07/20 14:35 08/07/20 14:35 Results - Laboratory Findings CBC and BMP: 08/08/20 04:31 08/08/20 04:31 ABG ABG pH 7.362 pH Units (7.350-7.450) 08/07/20 22:05 ABG pCO2 64.3 mm Hg 08/07/20 22:05 ABG pO2 61.4 mm Hg (80.0-90.0) L 08/07/20 22:05 ABG O2 Saturation 90.8 % (95.0-99.0) L 08/07/20 22:05 PT/INR, D-dimer PT 15.2 Sec. (12.2-14.9) H 08/08/20 04:31 INR 1.20 (0.87-1.13) H 08/08/20 04:31 D-Dimer 762.58 ng/mlDDU (0-234) H 08/07/20 23:13 Abnormal lab findings: Abnormal Labs 08/07/20 08/07/20 08/07/20 16:13 16:13 22:05 Hgb MCV 75 L MCH 22 L MCHC 29 L RDW 19.7 H Lymph % (Auto) Lymph # (Auto) Seg Neutrophils % 71.3 H Seg Neutrophils # PT INR D-Dimer ABG pO2 61.4 L ABG HCO3 35.7 H ABG O2 Saturation 90.8 L ABG Base Excess 8.7 H ABG Hemoglobin 9.6 L Oxyhemoglobin 88.7 L Sodium 136 L Potassium Chloride 94.7 L Carbon Dioxide 36 H Creatinine Glucose Total Protein 8.7 H Albumin 3.5 L 08/07/20 08/08/20 08/08/20 23:13 04:31 04:31 Hgb 9.6 L MCV 74 L MCH 22 L MCHC RDW 19.2 H Lymph % (Auto) 8.6 L Lymph # (Auto) 0.8 L Seg Neutrophils % 88.1 H Seg Neutrophils # 8.6 H PT 15.2 H INR 1.20 H D-Dimer 762.58 H ABG pO2 ABG HCO3 ABG O2 Saturation ABG Base Excess ABG Hemoglobin Oxyhemoglobin Sodium Potassium Chloride Carbon Dioxide Creatinine Glucose Total Protein Albumin 08/08/20 04:31 Hgb MCV MCH MCHC RDW Lymph % (Auto) Lymph # (Auto) Seg Neutrophils % Seg Neutrophils # PT INR D-Dimer ABG pO2 ABG HCO3 ABG O2 Saturation ABG Base Excess ABG Hemoglobin Oxyhemoglobin Sodium Potassium 5.3 H Chloride 95.2 L Carbon Dioxide 36 H Creatinine 0.5 L Glucose 163 H Total Protein Albumin
[2020-08-08] MEDS: FUROSEMIDE 20 MG/2 ML INJ IV SCH (15:02)
[2020-08-08] MEDS: FAMOTIDINE 20 MG TAB PO SCH (15:02)
--- NOTE | 2020-08-08 15:43 | Vascular Lab Report ---
VL venous duplex LE BILAT INDICATION / CLINICAL INFORMATION: elevated d-dimer. COMPARISON: None available. FINDINGS: No evidence of deep vein thrombosis in either leg. Signer Name: Eros Sarkar MD Signed: 08/08/2020 3:39 PM Workstation Name: [id number]
--- NOTE | 2020-08-08 19:04 | Consultation ---
PULMONARY CONSULTATION NOTE CONSULTING PHYSICIAN: Dr. Yaw Coats. REASON FOR CONSULTATION: Acute asthma exacerbation, acute hypoxemic respiratory failure. CHIEF COMPLAINT AND HISTORY OF PRESENT ILLNESS: The patient is a 34-year-old morbidly obese female with past medical history of hypertension, not on home oxygen, showed up in the Emergency Room yesterday complaining of shortness of breath, had been going on for a few days. She was using her albuterol nebulizer treatments more frequently at home without significant improvement. She is not on any controller medication. She denies a history of intubation as regards of the asthma. She thinks she was admitted less than twice in the hospital last year. She denies nightly awakenings with her asthma symptoms, but states that she pretty much does not get to sleep well at night. It is unclear if it is because of the asthma or if it is because of sleep disordered breathing. She states she was tested for obstructive sleep apnea in the past was positive, but did not like the noninvasive ventilation machine. She had denied any nausea, vomiting, cough or expectoration. Denied any hemoptysis. Denied any new onset leg pain or swelling either unilaterally or bilaterally or suggestion of a deep venous thrombosis. She denied any sick contacts. Denied known contact with anyone with COVID-19 infection. In the Emergency Room, she was hypoxemic, O2 sats 77% on room air. This improved on 4 liters nasal cannula. Workup in the ER revealed elevated D-dimers. CT angiogram could not be done because of her son. We are asked to assist with management. When I stopped by to see her, she was resting in bed, still with mildly increased respiratory effort at rest. She was on supplemental oxygen at 2 liters nasal cannula. Denied chest pains. She has smoked intermittently in her life, but never a pack a day smoker and gives a less than 5-pack-year tobacco smoking history and does not currently smoke. This really is as much of the history of presentation as I have. PAST MEDICAL HISTORY: Asthma, hypertension, morbid obesity, obstructive sleep apnea. PAST SURGICAL HISTORY: Denies. MEDICATIONS: She was on at the time I stopped by to see her were reviewed, pertinent medications include the following: Tylenol 650 mg p.o. q. 4 hours p.r.n. mild pain or fevers, DuoNeb nebulizer treatments nebulized q. 6 hours, p.r.n. milk of magnesia, Solu-Medrol 40 mg IV q. 8 hours, morphine 2 mg IV q. 4 hours p.r.n. moderate pain, Zofran 4 mg IV q. 8 hours p.r.n. nausea and vomiting. ALLERGIES: No known drug allergies. DIET: Morbidly obese, BMI 81.5. Denies acute weight loss or gain in the preceding few weeks to months. FAMILY AND SOCIAL HISTORY: Lives in the community. She has a patchy tobacco use history, but denies. She gives a less than 5-pack-year smoking history and states she does not smoke currently. Denies alcohol or illicit drug use or abuse. Family and social history otherwise noncontributory. REVIEW OF SYSTEMS: No loss of consciousness. No new-onset seizures. No new-onset focal weakness. She has been a little lightheaded at times with coughing spells. Denies gross hematochezia or melena. Denies gross hematuria or dysuria. Denies hematemesis. Denies hemoptysis, denies heat or cold intolerance. Admits to sleep disordered breathing. Denies polydipsia or polyuria. Complete 13-system review of systems obtained. Pertinent positives and/or negatives as in body of history above, otherwise noncontributory. PHYSICAL EXAMINATION: VITAL SIGNS: At presentation, she is afebrile and she also denied fevers at home. Temperature 98.3 degrees Fahrenheit, pulse of 112, respiratory rate of 26, blood pressure 166/103, O2 sats were 77% at presentation. GENERAL: She is a young, morbidly obese female, normocephalic, atraumatic, talking to me with mildly increased respiratory effort at rest. HEAD, EYES, EARS, NOSE AND THROAT: Anicteric. No conjunctival erythema. Oropharynx was moist. Mallampati #4 oropharynx. No gross jugular venous distention, no thyromegaly. She does have a large neck circumference. Grossly, there were no palpable lymph nodes in the supraclavicular or submandibular lymph node chains. LUNGS: Auscultation of both lung wynne significant for diminished bilateral air movement, prolonged expiratory phase. No active wheezing. HEART: Heart sounds 1 and 2 are heard. They were regular in rate and rhythm at the time of my evaluation without overt rubs or murmurs. ABDOMEN: Soft, full, protuberant. Bowel sounds are positive, nontender, no palpable hepatosplenomegaly. EXTREMITIES: Without overt digital clubbing, no cyanosis, no pedal edema. Pedal pulses were 2+ bilaterally. NEUROLOGIC: Pupils were equal, round, reactive to light, about 4 mm. Extraocular muscle movements were intact. She moves all 4 extremities spontaneously. SKIN: Normal turgor in the areas examined without overt cellulitis or rash. Please see the registered nurse and wound care nurse's notes for full description of her skin. PSYCHIATRIC: Mood or affect were normal/appropriate. She had intact judgment and insight. LABORATORY DATA: From my review are as follows: White cell count 8500, hemoglobin 10.4, hematocrit 35.4, platelet count 284. No manual differential. D-dimer was elevated at 763. Arterial blood gas showed a pH of 7.36, pCO2 of 64, pO2 of 61 that was on room air. Serum sodium was 136, potassium 4.8, chloride 95, bicarbonate 36, BUN 7, creatinine 0.6, glucose was 94. Liver function tests within normal limits. Troponin within normal limits. Urinalysis, trace leukocyte esterase, negative for nitrites, only 1 white cell per high power field, 1+ bacteremia. Urine test was negative. No blood cultures or other cultures for my review. Chest x-ray was done. I have reviewed the images as well as the radiologist's interpretation, it is a somewhat lordotic film. Soft tissue shadows also do affect the interpretation, perhaps slightly under penetrated. Overall, I really do not see any acute infiltrate. I cannot rule out small bilateral pleural effusions, but I think those are just due to soft tissue shadows. Of note, she does have borderline cardiomegaly. ASSESSMENT: 1. Acute hypoxemic respiratory failure. 2. Acute asthma exacerbation. 3. Morbid obesity. 4. Obstructive sleep apnea. 5. Chronic hypercarbia. 6. History of hypertension. 7. Elevated serum D-dimers. 8. Hyperkalemia with potassium of 5.3 today. 9. Hyperglycemia. 10. Obstructive sleep apnea, untreated. PLAN: We do agree with current interventions for acute asthma exacerbation. I will go ahead and start her on long-acting bronchodilators with Brovana as well as inhaled corticosteroids. She has refused to use a bilevel positive air pressure ventilation therapy at bedtime for increased shortness of breath. States that she is claustrophobic to some extent. She does agree to repeat a sleep study upon discharge. Considering her comorbidities, I will go ahead and order a 2D echo, both to check right-sided pressures, but also left-sided pressures. Her BUN and creatinine suggests that she may be able to tolerate some diuresis and I will await to see if she has a systolic or diastolic dysfunction. The chest x-ray, although it is affected by soft tissue shadows, may also represent an element of mild interstitial edema. I will empirically give her a one-time dose of Lasix. Oxygen will be weaned to keep sats greater than or equal to about 90%. She will remain in contact and airborne precautions while the coronavirus test result is pending. I think this is appropriate considering her comorbidities. I will go ahead and get a ferritin level as well as LDH and trend as necessary to help guide clinical decision making especially if her coronavirus PCR test comes back positive. I will start her on double dose Lovenox, so to say DVT prophylaxis, although 40 mg subcutaneous b.i.d. in light of her morbid obesity. I will hold on full weight-based anticoagulation. At this point, she will be started also on Pepcid for GI prophylaxis, especially with her on steroids and anticoagulation. Flu and pneumonia vaccination will be addressed per protocol. Chronic disease medication management will be deferred to the attending physician. Thank you very much for the consult. We will follow along and make further recommendations as picture progresses/becomes clearer. Continued tobacco abstinence has been strongly counseled as have lifestyle changes to include weight loss at the bedside. JOB# [id number] LORENZO/FORTUNATO
[2020-08-08] MEDS: ARFORMOTEROL 15 MCG/2 ML NEBU IH SCH (20:49)
[2020-08-08] MEDS: BUDESONIDE 0.5 MG/2 ML NEBU IH SCH (20:49)
[2020-08-09] MEDS: IPRATROPIUM/ALBUTEROL SULFATE 3 ML AMPUL.NEB IH SCH ×4 (02:27→20:43)
[2020-08-09] MEDS ORDERED: SODIUM CHLORIDE 0.9% 1000 ML 1,000 ML IV ONE (04:10)
[2020-08-09] MEDS ORDERED: hydrALAZINE 20 MG/1 ML INJ IV PRN (04:13)
[2020-08-09] MEDS: methylPREDNISolone Sod Succinate 40 MG/1 ML INJ IV SCH ×2 (05:20→17:35)
[2020-08-09] MEDS: ARFORMOTEROL 15 MCG/2 ML NEBU IH SCH ×2 (09:00→20:43)
[2020-08-09] MEDS: BUDESONIDE 0.5 MG/2 ML NEBU IH SCH ×2 (09:00→20:43)
--- NOTE | 2020-08-09 09:21 | Progress Note ---
Assessment and Plan Assessment and plan: Acute asthma exacerbation. Continue bronchodilators and IV steroids. O2 to make sats greater than 92%. Obesity hypoventilation syndrome/CLAUDIA Acute hypoxic respiratory failure. Etiology multifactorial and secondary to above. Continue O2 to maintain sats. Morbid obesity. Patient has a BMI of 81.5. Patient will be counseled on diet, exercise and lifestyle modifications prior to discharge. Elevated D-dimer. Check lower extremity Doppler studies for risk stratification. Body habitus too large for CTA chest or VQ scan. Empiric Lovenox presently 08/09. Doppler studies negative for DVT. D-dimer only mildly elevated. Wean IV steroids today and continue bronchodilators/nebulizers. Covid testing negative. History Interval history: No new issues overnight. Hospitalist Physical - Constitutional Vitals: Temp Pulse Resp BP Pulse Ox 97.7 F 87 18 164/103 98 08/09/20 03:56 08/09/20 09:00 08/09/20 09:00 08/09/20 04:21 08/09/20 09:00 General appearance: Present: no acute distress, well-nourished, obese - EENT Eyes: Present: PERRL, EOM intact ENT: hearing intact, clear oral mucosa, dentition normal - Neck Neck: Present: supple, normal ROM - Respiratory Respiratory effort: normal Respiratory: bilateral: CTA - Cardiovascular Rhythm: regular Heart Sounds: Present: S1 & S2. Absent: gallop, rub - Extremities Extremities: no ischemia, No edema, Full ROM - Abdominal General gastrointestinal: soft, non-tender, non-distended, normal bowel sounds - Integumentary Integumentary: Present: clear, warm, dry - Neurologic Neurologic: CNII-XII intact, moves all extremities HEART Score - HEART Score Troponin: Troponin T < 0.010 ng/mL (0.00-0.029) 08/07/20 20:16 Results - Labs CBC & Chem 7: 08/08/20 04:31 08/08/20 04:31 Labs: Laboratory Last Values WBC 9.8 K/mm3 (4.5-11.0) 08/08/20 04:31 RBC 4.35 M/mm3 (3.65-5.03) 08/08/20 04:31 Hgb 9.6 gm/dl (10.1-14.3) L 08/08/20 04:31 Hct 32.0 % (30.3-42.9) 08/08/20 04:31 MCV 74 fl (79-97) L 08/08/20 04:31 MCH 22 pg (28-32) L 08/08/20 04:31 MCHC 30 % (30-34) 08/08/20 04:31 RDW 19.2 % (13.2-15.2) H 08/08/20 04:31 Plt Count 281 K/mm3 (140-440) 08/08/20 04:31 Lymph % (Auto) 8.6 % (13.4-35.0) L 08/08/20 04:31 Dillon % (Auto) 3.0 % (0.0-7.3) 08/08/20 04:31 Eos % (Auto) 0.1 % (0.0-4.3) 08/08/20 04:31 Baso % (Auto) 0.2 % (0.0-1.8) 08/08/20 04:31 Lymph # (Auto) 0.8 K/mm3 (1.2-5.4) L 08/08/20 04:31 Dillon # (Auto) 0.3 K/mm3 (0.0-0.8) 08/08/20 04:31 Eos # (Auto) 0.0 K/mm3 (0.0-0.4) 08/08/20 04:31 Baso # (Auto) 0.0 K/mm3 (0.0-0.1) 08/08/20 04:31 Seg Neutrophils % 88.1 % (40.0-70.0) H 08/08/20 04:31 Seg Neutrophils # 8.6 K/mm3 (1.8-7.7) H 08/08/20 04:31 PT 15.2 Sec. (12.2-14.9) H 08/08/20 04:31 INR 1.20 (0.87-1.13) H 08/08/20 04:31 D-Dimer 762.58 ng/mlDDU (0-234) H 08/07/20 23:13 ABG pH 7.362 pH Units (7.350-7.450) 08/07/20 22:05 ABG pCO2 64.3 mm Hg 08/07/20 22:05 ABG pO2 61.4 mm Hg (80.0-90.0) L 08/07/20 22:05 ABG HCO3 35.7 mmol/L (20.0-26.0) H 08/07/20 22:05 ABG O2 Saturation 90.8 % (95.0-99.0) L 08/07/20 22:05 ABG O2 Content 12.0 (0.0-44) 08/07/20 22:05 ABG Base Excess 8.7 mmol/L (-2.0-3.0) H 08/07/20 22:05 ABG Hemoglobin 9.6 gm/dl (12.0-16.0) L 08/07/20 22:05 ABG Carboxyhemoglobin 1.9 % (0.0-5.0) 08/07/20 22:05 ABG Methemoglobin 0.5 % (0.0-1.5) 08/07/20 22:05 Oxyhemoglobin 88.7 % (95.0-99.0) L 08/07/20 22:05 FiO2 21 % 08/07/20 22:05 Sodium 138 mmol/L (137-145) 08/08/20 04:31 Potassium 5.3 mmol/L (3.6-5.0) H 08/08/20 04:31 Chloride 95.2 mmol/L (98-107) L 08/08/20 04:31 Carbon Dioxide 36 mmol/L (22-30) H 08/08/20 04:31 Anion Gap 12 mmol/L 08/08/20 04:31 BUN 7 mg/dL (7-17) 08/08/20 04:31 Creatinine 0.5 mg/dL (0.6-1.2) L 08/08/20 04:31 Estimated GFR > 60 ml/min 08/08/20 04:31 BUN/Creatinine Ratio 14 % 08/08/20 04:31 Glucose 163 mg/dL (65-100) H 08/08/20 04:31 Calcium 8.6 mg/dL (8.4-10.2) 08/08/20 04:31 Ferritin 56.3 ng/mL (10.0-200.0) 08/08/20 18:21 Total Bilirubin 0.30 mg/dL (0.1-1.2) 08/07/20 16:13 AST 28 units/L (5-40) 08/07/20 16:13 ALT 25 units/L (7-56) 08/07/20 16:13 Alkaline Phosphatase 108 units/L (35-129) 08/07/20 16:13 Lactate Dehydrogenase 282 units/L (91-180) H 08/08/20 18:21 Troponin T < 0.010 ng/mL (0.00-0.029) 08/07/20 20:16 Total Protein 8.7 g/dL (6.3-8.2) H 08/07/20 16:13 Albumin 3.5 g/dL (3.9-5) L 08/07/20 16:13 Albumin/Globulin Ratio 0.7 % 08/07/20 16:13 Urine Color Yellow (Yellow) 08/07/20 17:38 Urine Turbidity Slightly-cloudy (Clear) 08/07/20 17:38 Urine pH 7.0 (5.0-7.0) 08/07/20 17:38 Ur Specific [place] 1.012 (1.003-1.030) 08/07/20 17:38 Urine Protein 30 mg/dl mg/dL (Negative) 08/07/20 17:38 Urine Glucose (UA) Neg mg/dL (Negative) 08/07/20 17:38 Urine Ketones Neg mg/dL (Negative) 08/07/20 17:38 Urine Blood Neg (Negative) 08/07/20 17:38 Urine Nitrite Neg (Negative) 08/07/20 17:38 Ur Reducing Substances Not Reportable 08/07/20 17:38 Urine Bilirubin Neg (Negative) 08/07/20 17:38 Urine Ictotest Not Reportable 08/07/20 17:38 Urine Urobilinogen < 2.0 mg/dL (<2.0) 08/07/20 17:38 Ur Leukocyte Esterase Tr (Negative) 08/07/20 17:38 Urine WBC (Auto) 1.0 /HPF (0.0-6.0) 08/07/20 17:38 Urine RBC (Auto) 1.0 /HPF (0.0-6.0) 08/07/20 17:38 U Epithel Cells (Auto) 8.0 /HPF (0-13.0) 08/07/20 17:38 Urine Bacteria (Auto) 1+ /HPF (Negative) 08/07/20 17:38 Urine Mucus Few /HPF 08/07/20 17:38 Urine HCG, Qual Negative (Negative) 08/07/20 17:38 Coronavirus (PCR) Negative (Negative) 08/08/20 Unknown Zambrano/IV: Voiding Method Toilet IV Catheter Type [Left Hand] INT / Saline Lock Active Medications - Current Medications Current Medications: Generic Name Dose Route Start Last Admin Trade Name Freq PRN Reason Stop Dose Admin Acetaminophen 650 mg 08/07/20 23:22 Acetaminophen 325 Mg Tab PO Q4H PRN Pain MILD(1-3)/Fever >100.5/BROWN Albuterol/Ipratropium 1 ampul 08/08/20 02:00 08/09/20 09:00 Ipratropium/Albuterol Sulfate 3 Ml Ampul.Neb IH 1 ampul Q6HRT EKATERINA Administration Arformoterol Tartrate 15 mcg 08/08/20 20:00 08/09/20 09:00 Arformoterol 15 Mcg/2 Ml Nebu IH 15 mcg Q12HRT EKATERINA Administration Budesonide 0.5 mg 08/08/20 20:00 08/09/20 09:00 Budesonide 0.5 Mg/2 Ml Nebu IH 0.5 mg Q12HRT EKATERINA Administration Famotidine 20 mg 08/08/20 15:00 08/08/20 15:02 Famotidine 20 Mg Tab PO 20 mg QDAY EKATERINA Administration Furosemide 20 mg 08/08/20 15:00 08/08/20 15:02 Furosemide 20 Mg/2 Ml Inj IV 08/09/20 14:59 20 mg QDAY EKATERINA Administration Hydralazine HCl 5 mg 08/09/20 04:13 08/09/20 04:21 Hydralazine 20 Mg/1 Ml Inj IV 5 mg Q6H PRN Administration Hypertension Hydrochlorothiazide 25 mg 08/09/20 10:00 Hydrochlorothiazide 25 Mg Tab PO QDAY EKATERINA Sodium Chloride 1,000 mls @ 42 mls/hr 08/09/20 04:10 08/09/20 04:21 Nacl 0.9% 1000 Ml IV 08/10/20 03:58 42 mls/hr ONCE ONE Administration Magnesium Hydroxide 30 ml 08/07/20 23:22 Magnesium Hydroxide (Mom) Oral Liqd Udc PO Q4H PRN Constipation Methylprednisolone Sodium Succinate 40 mg 08/08/20 06:00 08/09/20 05:20 Methylprednisolone Sod Succinate 40 Mg/1 Ml Inj IV 40 mg Q8HR EKATERINA Administration Morphine Sulfate 2 mg 08/07/20 23:22 Morphine 2 Mg/1 Ml Inj IV Q4H PRN Pain, Moderate (4-6) Ondansetron HCl 4 mg 08/07/20 23:22 Ondansetron 4 Mg/2 Ml Inj IV Q8H PRN Nausea And Vomiting Sodium Chloride 10 ml 08/08/20 10:00 08/08/20 21:39 Sodium Chloride 0.9% 10 Ml Flush Syringe IV 10 ml BID EKATERINA Administration Sodium Chloride 10 ml 08/07/20 23:22 Sodium Chloride 0.9% 10 Ml Flush Syringe IV PRN PRN LINE FLUSH
[2020-08-09] MEDS: FUROSEMIDE 20 MG/2 ML INJ IV SCH (09:54)
[2020-08-09] MEDS: FAMOTIDINE 20 MG TAB PO SCH ×2 (09:54→21:52)
[2020-08-09] MEDS: hydroCHLOROthiazide 25 MG TAB PO SCH (09:54)
[2020-08-09] MEDS ORDERED: ACETAMINOPHEN 325 MG TAB PO PRN (10:24)
[2020-08-09] MEDS ORDERED: ALBUTEROL 8.5 GM MDI INHALATION IH PRN (10:24)
[2020-08-09] MEDS ORDERED: ALBUTEROL 2.5 MG/3 ML NEBU IH PRN (10:24)
--- NOTE | 2020-08-09 12:02 | Progress Note ---
Assessment and Plan This is 34 yearl old female. Morbidly Obese history of asthma admitted for shortness of breath and wheezing. Patient resting on 3 litres o2. Says breathing better. O2 saturation 98% on 3 litres O2. Patient afebrile no leukocytosis. Patient denies chest pain. Slight cough. Patient is on I/V solumedrol and albuterol/atrovent aerosol treatments q 6 hours. Chest xray reported . No acute findings. Recommend sleep study as out patient. - Patient Problems (1) Asthma with severe exacerbation Status: Acute Plan to address problem: O2 3 litres via nasal canula. Continue I/V Solumedrol. Albuterol/atrovent aerosol treatments q 6 hours. (2) Morbid obesity with BMI of 70 and over, adult Status: Acute Plan to address problem: Recommend to loose weight. Diet and exercise. Recommend sleep study as out patient. (3) Sleep apnea Status: Acute Plan to address problem: Patient with morbid Obesity and symptoms of sleep apnea, like snoring, fragmentation of sleep and day time sleepiness. Recommend sleep study as out patient. Subjective Date of service: 08/09/20 Interval history: This is 34 yearl old female. Morbidly Obese history of asthma admitted for shortness of breath and wheezing. Patient resting on 3 litres o2. S ays breathing better. O2 saturation 98% on 3 litres O2. Patient afebrile no leukocytosis. Patient denies chest pain. Slight cough. Patient is on I/V solumedrol and albuterol/atrovent aerosol treatments q 6 hours. Chest xray reported . No acute findings. Recommend sleep study as out patient. Objective Vital Signs - 12hr 08/09/20 08/09/20 08/09/20 03:56 04:21 07:42 Temperature 97.7 F 98.4 F Pulse Rate 95 H 73 Pulse Rate [ Bilateral] Respiratory 20 20 Rate Respiratory Rate [Bilateral ] Blood Pressure 164/103 164/103 128/91 O2 Sat by Pulse 95 92 Oximetry 08/09/20 08/09/20 08/09/20 09:00 10:00 11:28 Temperature Pulse Rate 72 Pulse Rate [ 87 Bilateral] Respiratory 20 Rate Respiratory 18 Rate [Bilateral ] Blood Pressure O2 Sat by Pulse 98 96 Oximetry Constitutional: no acute distress, alert, other (Morbidly Obese.) Eyes: non-icteric ENT: oropharynx moist Neck: supple, other (Short) Effort: mildly labored Ascultation: Bilateral: diminished breath sounds, other (Prolonged expiratory phase.) Cardiovascular: regular rate and rhythm Gastrointestinal: normoactive bowel sounds, soft, other (Obese.) Integumentary: rash, other (Stasis dermatitis.) Extremities: no cyanosis Neurologic: normal mental status, non-focal exam, pupils equal and round Psychiatric: mood appropriate CBC and BMP: 08/08/20 04:31 08/08/20 04:31 ABG, PT/INR, D-dimer: ABG ABG pH 7.362 pH Units (7.350-7.450) 08/07/20 22:05 ABG pCO2 64.3 mm Hg 08/07/20 22:05 ABG pO2 61.4 mm Hg (80.0-90.0) L 08/07/20 22:05 ABG O2 Saturation 90.8 % (95.0-99.0) L 08/07/20 22:05 PT/INR, D-dimer PT 15.2 Sec. (12.2-14.9) H 08/08/20 04:31 INR 1.20 (0.87-1.13) H 08/08/20 04:31 D-Dimer 762.58 ng/mlDDU (0-234) H 08/07/20 23:13 Abnormal lab findings: Abnormal Labs 08/07/20 08/07/20 08/07/20 16:13 16:13 22:05 Hgb MCV 75 L MCH 22 L MCHC 29 L RDW 19.7 H Lymph % (Auto) Lymph # (Auto) Seg Neutrophils % 71.3 H Seg Neutrophils # PT INR D-Dimer ABG pO2 61.4 L ABG HCO3 35.7 H ABG O2 Saturation 90.8 L ABG Base Excess 8.7 H ABG Hemoglobin 9.6 L Oxyhemoglobin 88.7 L Sodium 136 L Potassium Chloride 94.7 L Carbon Dioxide 36 H Creatinine Glucose Lactate Dehydrogenase Total Protein 8.7 H Albumin 3.5 L 08/07/20 08/08/20 08/08/20 23:13 04:31 04:31 Hgb 9.6 L MCV 74 L MCH 22 L MCHC RDW 19.2 H Lymph % (Auto) 8.6 L Lymph # (Auto) 0.8 L Seg Neutrophils % 88.1 H Seg Neutrophils # 8.6 H PT 15.2 H INR 1.20 H D-Dimer 762.58 H ABG pO2 ABG HCO3 ABG O2 Saturation ABG Base Excess ABG Hemoglobin Oxyhemoglobin Sodium Potassium Chloride Carbon Dioxide Creatinine Glucose Lactate Dehydrogenase Total Protein Albumin 08/08/20 08/08/20 04:31 18:21 Hgb MCV MCH MCHC RDW Lymph % (Auto) Lymph # (Auto) Seg Neutrophils % Seg Neutrophils # PT INR D-Dimer ABG pO2 ABG HCO3 ABG O2 Saturation ABG Base Excess ABG Hemoglobin Oxyhemoglobin Sodium Potassium 5.3 H Chloride 95.2 L Carbon Dioxide 36 H Creatinine 0.5 L Glucose 163 H Lactate Dehydrogenase 282 H Total Protein Albumin Chest x-ray: report reviewed (No acute findings.), image reviewed
[2020-08-09] MEDS: BENZONATATE 100 MG CAP PO SCH ×2 (14:03→21:52)
[2020-08-10] MEDS: BENZOCAINE/MENTHOL LOZENGE MM PRN ×2 (01:30→06:26)
[2020-08-10] MEDS: IPRATROPIUM/ALBUTEROL SULFATE 3 ML AMPUL.NEB IH SCH ×3 (06:04→14:10)
[2020-08-10] MEDS: BENZONATATE 100 MG CAP PO SCH (06:22)
[2020-08-10] MEDS: methylPREDNISolone Sod Succinate 40 MG/1 ML INJ IV SCH (06:22)
[2020-08-10] MEDS: BUDESONIDE 0.5 MG/2 ML NEBU IH SCH (08:08)
[2020-08-10] MEDS: ARFORMOTEROL 15 MCG/2 ML NEBU IH SCH (08:08)
--- NOTE | 2020-08-10 08:20 | Discharge Summary ---
Providers - Providers Date of Admission: 08/09/20 11:56 Date of discharge: 08/10/20 Attending physician: LATOYA BARRETT 08/07/20 23:22 Consult to Physician [CONS] Routine Comment: Consulting Provider: ALEX CABRERA Physician Instructions: Reason For Exam: Asthma Exacerbation Primary care physician: NURSING ASSISTANT Hospitalization Reason for admission: asthma exac Condition: Fair Hospital course: 34-year-old female with known history of asthma and hypertension presenting to the emergency room complaining of shortness of breath which had been ongoing for the past few days. She reported using her albuterol nebulizing treatments at home without any significant improvement. She denied any chest pain, no fever or chills, no nausea vomiting, no headache or dizziness. She denies any sick contacts and no recent travel. Denies any contact with anyone with COVID-19. Upon arrival in the emergency room patient's oxygen saturation was about 77%. The patient was admitted with diagnosis of acute hypoxic respiratory failure secondary to acute asthma exacerbation, obesity hypoventilation syndrome and CLAUDIA. Patient was also noted to have work- up in the emergency room that revealed elevated D-dimer. However, Chest x-ray showed no acute findings. CT angiogram and VQ scan could not be done because of patient's body habitus/obesity. Patient had further risk stratification with lower extremity Dopplers that were found to be negative. Patient also had COVID-19 testing that was negative. Patient was treated with IV steroids, bronchodilators and nebulizer treatments. Patient's oxygenation improved and she returned back to her baseline satting greater than 92% on room air. Patient is felt to receive maximal hospital benefit and will be discharged home. Dedicated discharge time 35 minutes. Disposition: [id number] TO HOME OR SELFCARE Time spent for discharge: 35 - Discharge Diagnoses (1) Acute respiratory failure with hypoxia Status: Acute (2) Obesity hypoventilation syndrome Status: Acute (3) Asthma with severe exacerbation Status: Acute (4) Morbid obesity Status: Acute (5) Sleep apnea Status: Acute Core Measure Documentation - Palliative Care Palliative Care/ Comfort Measures: Not Applicable - Core Measures Any of the following diagnoses?: none Exam - Constitutional Vitals: Temp Pulse Resp BP Pulse Ox 97.2 F L 89 20 142/96 97 08/10/20 04:34 08/10/20 08:08 08/10/20 08:08 08/10/20 04:34 08/10/20 08:07 General appearance: Present: no acute distress, obese - EENT Eyes: Present: PERRL ENT: hearing intact, clear oral mucosa - Neck Neck: Present: supple, normal ROM - Respiratory Respiratory effort: normal Respiratory: bilateral: CTA - Cardiovascular Heart Sounds: Present: S1 & S2. Absent: rub, click - Extremities Extremities: pulses symmetrical, No edema Peripheral Pulses: within normal limits - Abdominal General gastrointestinal: Present: soft, non-tender, non-distended, normal bowel sounds Female genitourinary: Present: normal - Integumentary Integumentary: Present: clear, warm, dry - Musculoskeletal Musculoskeletal: gait normal, strength equal bilaterally - Psychiatric Psychiatric: appropriate mood/affect, intact judgment & insight - Neurologic Neurologic: CNII-XII intact, moves all extremities Plan Activity: advance as tolerated Weight Bearing Status: Weight Bear as Tolerated Diet: low fat, low cholesterol Follow up with: PRIMARY CAREMD [Primary Care Provider] - 3-5 Days KENN MARTIN MD [Staff Physician] - 7 Days Prescriptions: Ipratropium/Albuterol Sulfate [DUONEB *Not for PRN Use*] 1 ampul IH TIDRT #30 day hydroCHLOROthiazide [HCTZ] 25 mg PO QDAY #30 tablet Famotidine [Pepcid] 20 mg PO BID #14 tablet Albuterol Mdi (or & Nicu Only) [ProAir HFA Inhaler] 2 puff IH QID PRN #1 inhalation PRN Reason: Shortness Of Breath ALBUTEROL NEB's [Proventil 0.083% NEBS] 2.5 mg IH Q3HRT PRN #30 day PRN Reason: Shortness Of Breath Benzonatate [Tessalon Perles] 100 mg PO Q8HR #15 capsule Azithromycin [Zithromax Z-BIN] 0 mg PO DAILY #1 tab
[2020-08-10] MEDS ORDERED: hydroCHLOROthiazide 25 MG TAB PO SCH (10:00)
[2020-08-10] MEDS: hydroCHLOROthiazide 25 MG TAB PO SCH (10:52)
[2020-08-10] MEDS: FAMOTIDINE 20 MG TAB PO SCH (10:52)
[2020-08-10 12:49] VITALS: BP 142/89
--- NOTE | 2020-08-10 15:26 | Progress Note ---
Assessment and Plan This is 34 yearl old female. Morbidly Obese history of asthma admitted for shortness of breath and wheezing. Patient resting on 3 litres o2. Says breathing better. O2 saturation 94% on 3 litres O2. Patient afebrile no leukocytosis. Patient denies chest pain. Slight cough. Patient is on I/V solumedrol and albuterol/atrovent aerosol treatments q 6 hours. Chest xray reported . No acute findings. Patient going home to day. Patient already has homne o2 3 litres. Recommend PO steroids in tapering doses. Continue albuterol/atrovent aerosol treatments. Recommend sleep study as out patient. Recommend to loose weight. - Patient Problems (1) Asthma with severe exacerbation Status: Acute Plan to address problem: O2 3 litres via nasal canula. Recommend Po prednisone in tapering doses. Albuterol/atrovent aerosol treatments q 6 hours. (2) Morbid obesity with BMI of 70 and over, adult Status: Acute Plan to address problem: Recommend to loose weight. Diet and exercise. Recommend sleep study as out patient. (3) Sleep apnea Status: Acute Plan to address problem: Patient with morbid Obesity, Short neck, and symptoms of sleep apnea, like snoring, fragmentation of sleep and day time sleepiness. Recommend sleep study as out patient. Subjective Date of service: 08/10/20 Interval history: This is 34 yearl old female. Morbidly Obese history of asthma admitted for shortness of breath and wheezing. Patient resting on 3 litres o2. Says breathing better. O2 saturation 94% on 3 litres O2. Patient afebrile no leukocytosis. Patient denies chest pain. Slight cough. Patient is on I/V solumedrol and albuterol/atrovent aerosol treatments q 6 hours. Chest xray reported . No acute findings. Patient going home to day. Patient already has homne o2 3 litres. Recommend PO steroids in tapering doses. Continue albuterol/atrovent aerosol treatments. Recommend sleep study as out patient. Recommend to loose weight. Objective Vital Signs - 12hr 08/10/20 08/10/20 08/10/20 04:34 08:07 08:08 Temperature 97.2 F L 97.8 F Pulse Rate 83 68 Pulse Rate [ 89 Bilateral] Respiratory 20 24 Rate Respiratory 20 Rate [Bilateral ] Blood Pressure 142/96 130/95 O2 Sat by Pulse 97 100 Oximetry 08/10/20 08/10/20 08/10/20 11:00 11:35 12:39 Temperature 98.5 F Pulse Rate 71 85 Pulse Rate [ Bilateral] Respiratory 20 24 Rate Respiratory Rate [Bilateral ] Blood Pressure 142/89 O2 Sat by Pulse 96 94 Oximetry Constitutional: no acute distress, alert, other (Morbidly Obese.) Eyes: non-icteric ENT: oropharynx moist Neck: supple, other (Short) Effort: mildly labored Ascultation: Bilateral: diminished breath sounds, other (Prolonged expiratory p hase.) Cardiovascular: regular rate and rhythm Gastrointestinal: normoactive bowel sounds, soft, other (Obese.) Integumentary: rash, other (Stasis dermatitis.) Extremities: no cyanosis Neurologic: normal mental status, non-focal exam, pupils equal and round Psychiatric: mood appropriate CBC and BMP: 08/08/20 04:31 08/08/20 04:31 ABG, PT/INR, D-dimer: ABG ABG pH 7.362 pH Units (7.350-7.450) 08/07/20 22:05 ABG pCO2 64.3 mm Hg 08/07/20 22:05 ABG pO2 61.4 mm Hg (80.0-90.0) L 08/07/20 22:05 ABG O2 Saturation 90.8 % (95.0-99.0) L 08/07/20 22:05 PT/INR, D-dimer PT 15.2 Sec. (12.2-14.9) H 08/08/20 04:31 INR 1.20 (0.87-1.13) H 08/08/20 04:31 D-Dimer 762.58 ng/mlDDU (0-234) H 08/07/20 23:13 Abnormal lab findings: Abnormal Labs 08/07/20 08/07/20 08/07/20 16:13 16:13 22:05 Hgb MCV 75 L MCH 22 L MCHC 29 L RDW 19.7 H Lymph % (Auto) Lymph # (Auto) Seg Neutrophils % 71.3 H Seg Neutrophils # PT INR D-Dimer ABG pO2 61.4 L ABG HCO3 35.7 H ABG O2 Saturation 90.8 L ABG Base Excess 8.7 H ABG Hemoglobin 9.6 L Oxyhemoglobin 88.7 L Sodium 136 L Potassium Chloride 94.7 L Carbon Dioxide 36 H Creatinine Glucose Lactate Dehydrogenase Total Protein 8.7 H Albumin 3.5 L 08/07/20 08/08/20 08/08/20 23:13 04:31 04:31 Hgb 9.6 L MCV 74 L MCH 22 L MCHC RDW 19.2 H Lymph % (Auto) 8.6 L Lymph # (Auto) 0.8 L Seg Neutrophils % 88.1 H Seg Neutrophils # 8.6 H PT 15.2 H INR 1.20 H D-Dimer 762.58 H ABG pO2 ABG HCO3 ABG O2 Saturation ABG Base Excess ABG Hemoglobin Oxyhemoglobin Sodium Potassium Chloride Carbon Dioxide Creatinine Glucose Lactate Dehydrogenase Total Protein Albumin 08/08/20 08/08/20 04:31 18:21 Hgb MCV MCH MCHC RDW Lymph % (Auto) Lymph # (Auto) Seg Neutrophils % Seg Neutrophils # PT INR D-Dimer ABG pO2 ABG HCO3 ABG O2 Saturation ABG Base Excess ABG Hemoglobin Oxyhemoglobin Sodium Potassium 5.3 H Chloride 95.2 L Carbon Dioxide 36 H Creatinine 0.5 L Glucose 163 H Lactate Dehydrogenase 282 H Total Protein Albumin
== END 2020-08-10 14:37 | disposition home or self-care (01) | DRG 189 ==
LOC: ED 14:33 → INTOOBSV 23:21 → 3A 23:21 → 4A 08-08 20:36 → OBSVTOIN 08-09 11:56
PROVIDERS: ADMIT Internal Medicine Geriatric Medicine; ATTEND Hospitalist
PROC: 4A033R1 Measurement of Arterial Saturation, Peripheral, Percutaneous Approach (ICD-10-PCS; principal; 2020-08-07)
DX: J96.01 Acute respiratory failure with hypoxia (principal); J45.901 Unspecified asthma with (acute) exacerbation; E66.2 Morbid (severe) obesity with alveolar hypoventilation; Z68.45 Body mass index [BMI] 70 or greater, adult; Z20.822 Contact with and (suspected) exposure to COVID-19; I10 Essential (primary) hypertension; Z79.899 Other long term (current) drug therapy; Z79.891 Long term (current) use of opiate analgesic; Z79.01 Long term (current) use of anticoagulants
CPT/HCPCS: 36415; 71045; 80048; 80053; 81001; 81025; 82728; 82803; 83615; 84484; 85025; 85379; 85610; 93005; 93306; 93970; 94640; 94644; 94760; G0378; J0360; J1100; J1650; J1940; J2920; J3475; J7030; U0003

== ENCOUNTER 2021-04-07 21:26 | Inpatient (IN) | payer OTHER ==
[2021-04-07] MEDS ORDERED: SODIUM CHLORIDE 0.9% 500 ML 500 ML IV ONE (21:55)
--- NOTE | 2021-04-07 21:55 | Emergency Department Report ---
ED Shortness of Breath HPI - General Chief Complaint: Dyspnea/Respdistress Stated Complaint: SOB Time Seen by Provider: 04/07/21 21:45 Source: patient Mode of arrival: Stretcher Limitations: Physical Limitation - History of Present Illness Initial Comments: patient presents with multiple issues including shortness of breath, edema, generalized malaise, fatigue, and weakness. She states she just does not feel well. She has a headache. She states her legs are swollen. She feels as though she is retaining fluid. She states that she went to her regular doctors on the . They tested her for Covid. It was negative. She was told to go see a after school caregiver. She is not seen a after school caregiver as of yet. She came in here because she was not feeling well and did not know what to do. She has had no sick contacts. There is been no hematemesis or coffee-ground emesis. She has no vomiting. She does report diarrhea. - Related Data Previous Rx's Medication Instructions Recorded Last Taken Type Acetaminophen [Acetaminophen TAB] 325 mg PO Q4H PRN #30 tablet 06/30/17 Unknown Rx ALBUTEROL NEB's [Proventil 0.083% 2.5 mg IH Q3HRT PRN #30 day 08/10/20 Unknown Rx NEBS] Albuterol Mdi (or & Nicu Only) 2 puff IH QID PRN #1 inhalation 08/10/20 Unknown Rx [ProAir HFA Inhaler] Azithromycin [Zithromax Z-BIN] 0 mg PO DAILY #1 tab 08/10/20 Unknown Rx Benzonatate [Tessalon Perles] 100 mg PO Q8HR #15 capsule 08/10/20 Unknown Rx Famotidine [Pepcid] 20 mg PO BID #14 tablet 08/10/20 Unknown Rx Ipratropium/Albuterol Sulfate 1 ampul IH TIDRT #30 day 08/10/20 Unknown Rx [DUONEB *Not for PRN Use*] hydroCHLOROthiazide [HCTZ] 25 mg PO QDAY tablet 08/10/20 Unknown Rx hydroCHLOROthiazide [HCTZ] 25 mg PO QDAY #30 tablet 08/10/20 Unknown Rx methylPREDNISolone [Medrol 4MG 4 mg PO DAILY #1 tab.ds.pk 08/10/20 Unknown Rx DOSEPAK (21 tabs)] Allergies Allergy/AdvReac Type Severity Reaction Status Date / Time No Known Allergies Allergy Unverified 01/27/17 11:17 ED Review of Systems ROS: Stated complaint: SOB Other details as noted in HPI Comment: All other systems reviewed and negative Constitutional: no symptoms reported Eyes: denies: eye pain ENT: denies: throat pain Respiratory: see HPI Cardiovascular: denies: chest pain Endocrine: denies: unexplained weight loss Gastrointestinal: denies: abdominal pain Genitourinary: denies: dysuria Musculoskeletal: denies: back pain Skin: denies: rash Neurological: as per HPI, headache Hematological/Lymphatic: denies: easy bruising ED Past Medical Hx - Past Medical History Hx Hypertension: Yes Hx Asthma: Yes Hx COPD: Yes Additional medical history: Morbid obesity. Sleep apnea - Family History Family history: hypertension - Social History Smoking Status: Never Smoker - Medications Home Medications: Home Medications Medication Instructions Recorded Confirmed Last Taken Type Acetaminophen [Acetaminophen TAB] 325 mg PO Q4H PRN #30 tablet 06/30/17 08/08/20 Unknown Rx ALBUTEROL NEB's [Proventil 0.083% 2.5 mg IH Q3HRT PRN #30 day 08/10/20 Unknown Rx NEBS] Albuterol Mdi (or & Nicu Only) 2 puff IH QID PRN #1 inhalation 08/10/20 Unknown Rx [ProAir HFA Inhaler] Azithromycin [Zithromax Z-BIN] 0 mg PO DAILY #1 tab 08/10/20 Unknown Rx Benzonatate [Tessalon Perles] 100 mg PO Q8HR #15 capsule 08/10/20 Unknown Rx Famotidine [Pepcid] 20 mg PO BID #14 tablet 08/10/20 Unknown Rx Ipratropium/Albuterol Sulfate 1 ampul IH TIDRT #30 day 08/10/20 Unknown Rx [DUONEB *Not for PRN Use*] hydroCHLOROthiazide [HCTZ] 25 mg PO QDAY tablet 08/10/20 Unknown Rx hydroCHLOROthiazide [HCTZ] 25 mg PO QDAY #30 tablet 08/10/20 Unknown Rx methylPREDNISolone [Medrol 4MG 4 mg PO DAILY #1 tab.ds.pk 08/10/20 Unknown Rx DOSEPAK (21 tabs)] ED Physical Exam - General Limitations: No Limitations, Physical Limitation, Other ( Pulse ox was noted at 90% and hypoxic. On her 3 L by cannula, she is 99%. This is baseline for her.) General appearance: alert, in no apparent distress, obese - Head Head exam: Present: atraumatic, normocephalic - Eye Eye exam: Present: normal appearance, EOMI - ENT ENT exam: Present: normal exam, normal orophraynx - Neck Neck exam: Present: normal inspection. Absent: meningismus - Respiratory Respiratory exam: Present: normal lung sounds bilaterally. Absent: respiratory distress - Cardiovascular Cardiovascular Exam: Present: normal rhythm, tachycardia - GI/Abdominal GI/Abdominal exam: Present: soft. Absent: tenderness - Extremities Exam Extremities exam: Present: normal capillary refill, pedal edema ( Bilateral 2+ above the knee) - Neurological Exam Neurological exam: Present: alert, oriented X3, other ( body habitus limits complete neurologic exam). Absent: motor sensory deficit - Psychiatric Psychiatric exam: Present: normal affect, normal mood - Skin Skin exam: Present: warm, dry ED Course Vital Signs 04/07/21 04/07/21 04/07/21 21:41 21:45 22:01 Temperature Pulse Rate 116 H 116 H 117 H Respiratory 15 12 30 H Rate Blood Pressure 106/31 Blood Pressure [Right] O2 Sat by Pulse 91 89 48 L Oximetry 04/07/21 04/07/21 04/07/21 22:15 22:31 22:45 Temperature Pulse Rate 119 H Respiratory 14 Rate Blood Pressure 90/14 76/25 91/47 Blood Pressure [Right] O2 Sat by Pulse 92 83 L 83 L Oximetry 04/07/21 04/07/21 04/07/21 23:01 23:15 23:31 Temperature Pulse Rate Respiratory 24 21 17 Rate Blood Pressure 79/15 89/18 95/43 Blood Pressure [Right] O2 Sat by Pulse 88 84 91 Oximetry 04/07/21 04/08/21 04/08/21 23:45 00:01 00:15 Temperature Pulse Rate Respiratory 22 24 15 Rate Blood Pressure 90/43 86/43 117/30 Blood Pressure [Right] O2 Sat by Pulse 95 97 65 L Oximetry 04/08/21 04/08/21 04/08/21 00:31 00:45 01:01 Temperature Pulse Rate Respiratory 12 31 H 18 Rate Blood Pressure 117/30 89/71 117/30 Blood Pressure [Right] O2 Sat by Pulse 98 92 94 Oximetry 04/08/21 04/08/21 04/08/21 01:15 01:31 01:45 Temperature Pulse Rate Respiratory 19 37 H 25 H Rate Blood Pressure 91/42 101/50 98/50 Blood Pressure [Right] O2 Sat by Pulse 94 99 95 Oximetry 04/08/21 04/08/21 04/08/21 02:01 02:15 02:31 Temperature Pulse Rate Respiratory 18 18 15 Rate Blood Pressure 106/49 117/94 79/49 Blood Pressure [Right] O2 Sat by Pulse 95 99 91 Oximetry 04/08/21 04/08/21 04/08/21 02:45 03:01 03:16 Temperature Pulse Rate 117 H 51 L Respiratory 35 H 29 H 16 Rate Blood Pressure 81/50 81/50 84/51 Blood Pressure [Right] O2 Sat by Pulse 97 97 96 Oximetry 04/08/21 04/08/21 04/08/21 03:31 03:45 04:01 Temperature Pulse Rate Respiratory Rate Blood Pressure 93/59 93/59 93/59 Blood Pressure [Right] O2 Sat by Pulse 98 97 95 Oximetry 04/08/21 04/08/21 04/08/21 04:15 04:31 04:45 Temperature Pulse Rate 113 H Respiratory 19 Rate Blood Pressure 93/59 95/47 95/47 Blood Pressure 95/47 [Right] O2 Sat by Pulse 95 95 95 Oximetry 04/08/21 04/08/21 04/08/21 05:01 05:15 05:31 Temperature Pulse Rate Respiratory Rate Blood Pressure 84/47 84/47 83/44 Blood Pressure [Right] O2 Sat by Pulse 96 82 L 97 Oximetry 04/08/21 04/08/21 04/08/21 05:45 06:01 06:15 Temperature Pulse Rate Respiratory Rate Blood Pressure 99/40 108/42 108/42 Blood Pressure [Right] O2 Sat by Pulse 92 91 94 Oximetry 04/08/21 04/08/21 04/08/21 06:31 06:45 07:01 Temperature Pulse Rate Respiratory Rate Blood Pressure 108/48 108/48 112/53 Blood Pressure [Right] O2 Sat by Pulse 80 L 75 L 94 Oximetry 04/08/21 04/08/21 04/08/21 07:15 07:30 07:31 Temperature 98.0 F Pulse Rate 108 H Respiratory 19 Rate Blood Pressure 112/53 109/64 Blood Pressure 109/64 [Right] O2 Sat by Pulse 96 96 96 Oximetry 04/08/21 04/08/21 04/08/21 07:41 07:50 08:01 Temperature Pulse Rate Respiratory Rate Blood Pressure 109/64 98/48 98/48 Blood Pressure [Right] O2 Sat by Pulse 94 94 95 Oximetry 04/08/21 04/08/21 08:11 08:20 Temperature Pulse Rate Respiratory Rate Blood Pressure 98/48 83/40 Blood Pressure [Right] O2 Sat by Pulse 96 95 Oximetry - Reevaluation(s) Reevaluation #1: 04/07/21 21:55 IV and labs were ordered. Reevaluation #2: 04/11/21 11:44 Chart was completed during downtime. 04/11/21 11:44 04/11/21 11:48 Patient did require admission. Labs have been reviewed. Case has been discussed with the hospitalist. ED Medical Decision Making - Lab Data Result diagrams: 04/09/21 04:52 04/11/21 05:48 - Medical Decision Making Patient presented with dependent edema and was found to have anasarca. She had evidence of pulmonary edema that would require admission and diuresis. She did not have evidence of STEMI on EKG patient did not have evidence of pneumonia or pneumothorax. There is no symptomatology that would have been consistent with coronavirus infection. She will be admitted for diuresis. Critical Care Time: No Critical care attestation.: If time is entered above; I have spent that time in minutes in the direct care of this critically ill patient, excluding procedure time. ED Disposition Clinical Impression: Generalized weakness Dyspnea Qualifiers: Dyspnea type: shortness of breath Qualified Code(s): R06.02 - Shortness of breath Disposition: 01 HOME / SELF CARE / HOMELESS Is pt being admited?: No Does the pt Need Aspirin: No Condition: Stable
[2021-04-07 22:20] LABS: Mean Corpuscular HGB Conc 27 % (30-34); Mean Corpuscular Volume 77 fl (79-97); Platelet Count 367 K/mm3 (140-440); Red Blood Count 4.36 M/mm3 (3.65-5.03)
[2021-04-07 22:23] LABS: Hematocrit 33.5 % (30.3-42.9); Hemoglobin 9.1 gm/dl (10.1-14.3); Red Cell Distribution Width 24.3 % (13.2-15.2)
[2021-04-07 22:32] LABS: Calcium 8.8 mg/dL (8.4-10.2)
--- NOTE | 2021-04-07 22:44 | XRay Report ---
XR chest 1V ap INDICATION / CLINICAL INFORMATION: dyspnea. COMPARISON: 08/07/2020 FINDINGS: Findings in the chest are accentuated by body habitus and phase of inspiration. SUPPORT DEVICES: None. HEART /PULMONARY VASCULATURE: The cardiac silhouette is accentuated. Pulmonary vasculature is congest ed. LUNGS / PLEURA: No focal airspace consolidation. No pleural effusion. No pneumothorax. ADDITIONAL FINDINGS: No significant additional findings. IMPRESSION: Cardiac silhouette is accentuated with prominence of the pulmonary vasculature, may reflect CHF. Signer Name: Boston Mix MD Signed: 04/07/2021 10:39 PM Workstation Name: [id number]
[2021-04-08] MEDS ORDERED: MORPHINE 4 MG/1 ML INJ IV ONE (00:04)
[2021-04-08] MEDS ORDERED: DEXTROSE 50% IN WATER (25GM) 50 ML SYRINGE IV ONE (00:19)
[2021-04-08] MEDS ORDERED: NITROGLYCERIN 0.4 MG TAB SUBL SL PRN (03:00)
[2021-04-08] MEDS ORDERED: ALBUTEROL 2.5 MG/3 ML NEBU IH PRN (03:00)
[2021-04-08] MEDS ORDERED: traMADol 50 MG TAB PO PRN (03:00)
[2021-04-08] MEDS ORDERED: ACETAMINOPHEN 325 MG TAB PO PRN ×2 (03:00)
[2021-04-08] MEDS ORDERED: ALBUTEROL 8.5 GM MDI INHALATION IH PRN (03:05)
--- NOTE | 2021-04-08 03:11 | History and Physical Report ---
History of Present Illness Date of examination: 04/08/21 Date of admission: 04/08/21 Chief complaint: Dyspnea Respiratory distress History of present illness: 35 years old female with history of morbid obesity, hypertension, asthma COPD sleep apnea was brought to the emergency room because of shortness of breath, edema, generalized malaise, fatigue, and weakness for last couple of days. She states she just does not feel well. She has a headache. She states her legs are swollen. She feels as though she is retaining fluid. She states that she went to her regular doctors on the . They tested her for Covid. It was negative. She was told to go see a territory account manager. She is not seen a territory account manager as of yet. She came in here because she was not feeling well and did not know what to do. She has had no sick contacts. In the emergency room patient is found to have acute CHF exacerbation patient proBNP is 7573 also patient cardiac enzyme is elevated troponin is 0.043. Patient blood glucose also 55 patient is hypoglycemic Med rec is done. Advance discharge process is initiated Past History Past Medical History: COPD, hypertension, other (Asthma, morbid obesity, sleep apnea) Medications and Allergies Allergies Allergy/AdvReac Type Severity Reaction Status Date / Time No Known Allergies Allergy Unverified 01/27/17 11:17 Home Medications Medication Instructions Recorded Confirmed Last Taken Type Acetaminophen [Acetaminophen TAB] 325 mg PO Q4H PRN #30 tablet 06/30/17 08/08/20 Unknown Rx ALBUTEROL NEB's [Proventil 0.083% 2.5 mg IH Q3HRT PRN #30 day 08/10/20 Unknown Rx NEBS] Albuterol Mdi (or & Nicu Only) 2 puff IH QID PRN #1 inhalation 08/10/20 Unknown Rx [ProAir HFA Inhaler] Azithromycin [Zithromax Z-BIN] 0 mg PO DAILY #1 tab 08/10/20 Unknown Rx Benzonatate [Tessalon Perles] 100 mg PO Q8HR #15 capsule 08/10/20 Unknown Rx Famotidine [Pepcid] 20 mg PO BID #14 tablet 08/10/20 Unknown Rx Ipratropium/Albuterol Sulfate 1 ampul IH TIDRT #30 day 08/10/20 Unknown Rx [DUONEB *Not for PRN Use*] hydroCHLOROthiazide [HCTZ] 25 mg PO QDAY tablet 08/10/20 Unknown Rx hydroCHLOROthiazide [HCTZ] 25 mg PO QDAY #30 tablet 08/10/20 Unknown Rx methylPREDNISolone [Medrol 4MG 4 mg PO DAILY #1 tab.ds.pk 08/10/20 Unknown Rx DOSEPAK (21 tabs)] Review of Systems All systems: negative Constitutional: fatigue, weakness, malaise Cardiovascular: edema, shortness of breath, dyspnea on exertion, other (Leg swelling) Respiratory: shortness of breath, dyspnea on exertion Exam - Constitutional Vitals: Temp Pulse Resp BP Pulse Ox 116 H 8 L 92 04/07/21 21:41 04/07/21 21:41 04/07/21 21:41 General appearance: Present: no acute distress, well-nourished - EENT Eyes: Present: PERRL ENT: hearing intact, clear oral mucosa - Neck Neck: Present: supple, normal ROM - Respiratory Respiratory effort: normal Respiratory: bilateral: rales - Cardiovascular Heart Sounds: Present: S1 & S2. Absent: rub, click - Extremities Extremities: pulses symmetrical Extremity abnormal: edema Peripheral Pulses: within normal limits - Abdominal General gastrointestinal: Present: soft, non-tender, non-distended, normal bowel sounds Female genitourinary: Present: normal - Integumentary Integumentary: Present: clear, warm, dry - Musculoskeletal Musculoskeletal: gait normal, strength equal bilaterally - Psychiatric Psychiatric: appropriate mood/affect, intact judgment & insight - Neurologic Neurologic: CNII-XII intact, moves all extremities HEART Score - HEART Score Troponin: Troponin T 0.043 ng/mL (0.00-0.029) H 04/07/21 22:04 Results - Labs CBC & Chem 7: 04/07/21 22:04 04/07/21 22:04 Labs: Laboratory Last Values WBC 17.7 K/mm3 (4.5-11.0) H 04/07/21 22:04 RBC 4.36 M/mm3 (3.65-5.03) 04/07/21 22:04 Hgb 9.1 gm/dl (10.1-14.3) L 04/07/21 22:04 Hct 33.5 % (30.3-42.9) 04/07/21 22:04 MCV 77 fl (79-97) L 04/07/21 22:04 MCH 21 pg (28-32) L 04/07/21 22:04 MCHC 27 % (30-34) L 04/07/21 22:04 RDW 24.3 % (13.2-15.2) H 04/07/21 22:04 Plt Count 367 K/mm3 (140-440) 04/07/21 22:04 Sodium 135 mmol/L (137-145) L 04/07/21 22:04 Potassium 5.0 mmol/L (3.6-5.0) 04/07/21 22:04 Chloride 91.0 mmol/L (98-107) L 04/07/21 22:04 Carbon Dioxide 17 mmol/L (22-30) L 04/07/21 22:04 Anion Gap 32 mmol/L 04/07/21 22:04 BUN 15 mg/dL (7-17) 04/07/21 22:04 Creatinine 1.4 mg/dL (0.6-1.2) H 04/07/21 22:04 Estimated GFR 52 ml/min 04/07/21 22:04 BUN/Creatinine Ratio 11 % 04/07/21 22:04 Glucose 55 mg/dL (65-100) L 04/07/21 22:04 POC Glucose 85 mg/dL (70-105) 04/08/21 02:41 Calcium 8.8 mg/dL (8.4-10.2) 04/07/21 22:04 Troponin T 0.043 ng/mL (0.00-0.029) H 04/07/21 22:04 NT-Pro-B Natriuret Pep 7573 pg/mL (0-450) H 04/07/21 22:04 - Imaging and Cardiology Chest x-ray: report reviewed Assessment and Plan VTE prophylaxis?: Chemical Plan of care discussed with patient/family: Yes - Patient Problems (1) Non-ST elevation GA (NSTEMI) Current Visit: Yes Status: Acute Plan to address problem: Admit the patient to the medical telemetry. Aspirin 325 mg p.o. daily. Lipitor 40 mg p.o. daily. Nitroglycerin as needed. We do the serial cardiac enzyme. We also consult cardiology for evaluation and order echocardiogram. (2) Acute exacerbation of CHF (congestive heart failure) Current Visit: Yes Status: Acute Plan to address problem: Fluid restriction. Maintain input output. Lasix 40 mg IV every 12 hours. Oxygen via nasal cannula 3 L/min. DuoNeb by nebulizer every 4 hours. Echocardiogram. Cardiology consult (3) Hypertension Current Visit: Yes Status: Acute Plan to address problem: We will continue the home medication. Hydralazine 10 mg IV every 6 hours as needed. We will monitor the blood pressure closely (4) COPD (chronic obstructive pulmonary disease) Current Visit: Yes Status: Acute Plan to address problem: Oxygen by nasal cannula 3 L/min. DuoNeb via nebulizer every 4 hours. Albuterol via nebulizer every 4 hours as needed. (5) Morbid obesity Current Visit: Yes Status: Acute Plan to address problem: We counseled regarding weight reduction. Outpatient follow-up with bariatric surgeon (6) Hyperglycemia Current Visit: Yes Status: Acute Plan to address problem: We will give 1 ampoule of D50. We will put the patient on cardiac diet. We will monitor the blood glucose closely (7) DVT prophylaxis Current Visit: No Status: Acute Plan to address problem: Heparin 5000 units subcu every 8 hours for DVT prophylaxis. Pepcid 20 mg p.o. twice daily for GI prophylaxis. Patient is a full code
[2021-04-08 04:16] LABS: Chol/HDL Ratio 3.4 %
[2021-04-08 04:36] LABS: Mean Corpuscular HGB Conc 29 % (30-34); Mean Corpuscular Volume 74 fl (79-97); Platelet Count 399 K/mm3 (140-440); Red Blood Count 4.33 M/mm3 (3.65-5.03)
[2021-04-08 04:38] LABS: Hematocrit 32.2 % (30.3-42.9); Hemoglobin 9.3 gm/dl (10.1-14.3); Red Cell Distribution Width 23.1 % (13.2-15.2)
[2021-04-08 04:53] LABS: Calcium 8.6 mg/dL (8.4-10.2)
[2021-04-08] MEDS ORDERED: FUROSEMIDE 40 MG/4 ML INJ IV SCH (06:00)
[2021-04-08] MEDS: HEPARIN 5,000 UNIT/1 ML VIAL SUB-Q SCH ×3 (06:30→22:52)
[2021-04-08] MEDS ORDERED: IPRATROPIUM/ALBUTEROL SULFATE 3 ML AMPUL.NEB IH SCH (08:00)
[2021-04-08 09:18] LABS: Band Neutrophils # (Manual) 2.2 K/mm3; Myelocytes # (Manual) 0.5 K/mm3; Total Cells Counted 100
[2021-04-08 09:19] LABS: Anisocytosis 2+; Hypochromasia 2+; Platelet Estimate Consistent w Auto
[2021-04-08] MEDS ORDERED: hydroCHLOROthiazide 25 MG TAB PO SCH (10:00)
[2021-04-08] MEDS ORDERED: LISINOPRIL 5 MG TAB PO SCH (10:00)
[2021-04-08] MEDS ORDERED: AZITHROMYCIN 250 MG TAB PO SCH (10:00)
--- NOTE | 2021-04-08 10:07 | Electrocardiograph Report ---
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
[2021-04-08] MEDS: FAMOTIDINE 20 MG TAB PO SCH ×2 (11:03→22:52)
[2021-04-08] MEDS: methylPREDNISolone 4 MG TAB PO SCH (11:03)
[2021-04-08] MEDS ORDERED: SODIUM CHLORIDE 0.9% 1000 ML 1,000 ML IV ONE (12:55)
[2021-04-08] MEDS: BENZONATATE 100 MG CAP PO SCH ×2 (13:00→22:52)
--- NOTE | 2021-04-08 14:11 | Event Note ---
Date: 04/08/21 Patient seen and examined 35 years old female with history of morbid obesity, hypertension, asthma COPD sleep apnea was brought to the emergency room because of shortness of breath, edema, generalized malaise, fatigue, and weakness for last couple of days. Patient admitted with an STEMI and acute exacerbation of CHF. Continue current management and plan as dictated in the HPI. Cardiology consulted will follow recommendation 2D echo ordered we will follow, continue IV diuresis
--- NOTE | 2021-04-08 14:53 | Consultation ---
History of Present Illness Consult date: 04/08/21 Requesting physician: ONEAL LOERA Consult reason: other (NSTEMI) History of present illness: Patient is a 35 y/o female, previously unknown to our practice, with a PMHX of morbid obesity, HTN, COPD who presented to [facility] with a complaint of SOB, edema, malaise, and falls x 1month. She reports that in the last week these symptoms have worsened and she came to the hospital for relief. She reports that she is retaining fluid, has orthopnea, and OJEDA. She reports that her breathing is better with O2 and worsened with exertion.Work up reveal troponins 0.032, BNP 7573, cr 1.8, and WBC 24.3. Cardiology is consulted for NSTEMI. Past History Past Medical History: COPD, hypertension, other (Asthma, morbid obesity, sleep apnea) Social history: no significant social history Family history: CAD, diabetes Medications and Allergies Allergies Allergy/AdvReac Type Severity Reaction Status Date / Time No Known Allergies Allergy Unverified 01/27/17 11:17 Home Medications Medication Instructions Recorded Confirmed Last Taken Type Acetaminophen [Acetaminophen TAB] 325 mg PO Q4H PRN #30 tablet 06/30/17 08/08/20 Unknown Rx ALBUTEROL NEB's [Proventil 0.083% 2.5 mg IH Q3HRT PRN #30 day 08/10/20 Unknown Rx NEBS] Albuterol Mdi (or & Nicu Only) 2 puff IH QID PRN #1 inhalation 08/10/20 Unknown Rx [ProAir HFA Inhaler] Azithromycin [Zithromax Z-BIN] 0 mg PO DAILY #1 tab 08/10/20 Unknown Rx Benzonatate [Tessalon Perles] 100 mg PO Q8HR #15 capsule 08/10/20 Unknown Rx Famotidine [Pepcid] 20 mg PO BID #14 tablet 08/10/20 Unknown Rx Ipratropium/Albuterol Sulfate 1 ampul IH TIDRT #30 day 08/10/20 Unknown Rx [DUONEB *Not for PRN Use*] hydroCHLOROthiazide [HCTZ] 25 mg PO QDAY tablet 08/10/20 Unknown Rx hydroCHLOROthiazide [HCTZ] 25 mg PO QDAY #30 tablet 08/10/20 Unknown Rx methylPREDNISolone [Medrol 4MG 4 mg PO DAILY #1 tab.ds.pk 08/10/20 Unknown Rx DOSEPAK (21 tabs)] Active Meds: Active Medications Acetaminophen (Acetaminophen 325 Mg Tab) 650 mg PO Q4H PRN PRN Reason: Pain MILD(1-3)/Fever >100.5/BROWN Albuterol (Albuterol 2.5 Mg/3 Ml Nebu) 2.5 mg IH Q4HRT PRN PRN Reason: Shortness Of Breath Albuterol/Ipratropium (Ipratropium/Albuterol Sulfate 3 Ml Ampul.Neb) 1 ampul IH TIDRT [facility] Aspirin (Aspirin Ec 325 Mg Tab) 325 mg PO QDAY [facility] Atorvastatin Calcium (Atorvastatin 40 Mg Tab) 40 mg PO QHS [facility] Azithromycin (Azithromycin 250 Mg Tab) 500 mg PO DAILY [facility]; Protocol Stop: 04/13/21 10:01 Benzonatate (Benzonatate 100 Mg Cap) 100 mg PO Q8HR [facility] Last Admin: 04/08/21 13:00 Dose: 100 mg Documented by: Famotidine (Famotidine 20 Mg Tab) 20 mg PO BID [facility] Last Admin: 04/08/21 11:03 Dose: 20 mg Documented by: Heparin Sodium (Porcine) (Heparin 5,000 Unit/1 Ml Vial) 5,000 unit SUB-Q Q8HR [facility] Last Admin: 04/08/21 13:00 Dose: 5,000 unit Documented by: Hydrochlorothiazide (Hydrochlorothiazide 25 Mg Tab) 25 mg PO QDAY [facility] Last Admin: 04/08/21 11:03 Dose: 25 mg Documented by: Hydromorphone HCl (Hydromorphone 1 Mg/1 Ml Inj) 0.5 mg IV Q3H PRN PRN Reason: Pain , Severe (7-10) Sodium Chloride (Nacl 0.9% 1000 Ml) 1,000 mls @ 75 mls/hr IV ONCE ONE Stop: 04/09/21 02:14 Last Admin: 04/08/21 12:57 Dose: 75 mls/hr Documented by: Methylprednisolone (Methylprednisolone 4 Mg Tab) 4 mg PO DAILY [facility] Last Admin: 04/08/21 11:03 Dose: 4 mg Documented by: Nitroglycerin (Nitroglycerin 0.4 Mg Tab Subl) 0.4 mg SL Q5M PRN PRN Reason: Chest Pain Ondansetron HCl (Ondansetron 4 Mg/2 Ml Inj) 4 mg IV Q8H PRN PRN Reason: Nausea And Vomiting Oxycodone/Acetaminophen (Oxycodone /Acetaminophen 5-325mg Tab) 1 tab PO Q6H PRN PRN Reason: Pain, Moderate (4-6) Sodium Chloride (Sodium Chloride 0.9% 10 Ml Flush Syringe) 10 ml IV BID [facility] Last Admin: 04/08/21 11:04 Dose: 10 ml Documented by: Sodium Chloride (Sodium Chloride 0.9% 10 Ml Flush Syringe) 10 ml IV PRN PRN PRN Reason: LINE FLUSH Tramadol HCl (Tramadol 50 Mg Tab) 50 mg PO Q6H PRN PRN Reason: Pain, Moderate (4-6) Review of Systems All systems: negative Constitutional: fatigue, weakness, no weight loss, no weight gain, no fever, no chills Ears, nose, mouth and throat: no nose pain, no nasal congestion, no nasal discharge, no sinus pressure, no sinus pain Cardiovascular: orthopnea, edema, shortness of breath, dyspnea on exertion, no chest pain, no palpitations, no rapid/irregular heart beat Respiratory: cough with sputum, shortness of breath, dyspnea on exertion, no cough Gastrointestinal: no abdominal pain, no nausea, no vomiting Musculoskeletal: no neck stiffness, no neck pain, no shooting arm pain Integumentary: no rash, no pruritis, no redness Neurological: weakness, no paralysis, no parathesias Psychiatric: no anxiety Endocrine: no cold intolerance Hematologic/Lymphatic: no easy bruising, no easy bleeding Physical Examination Vital Signs Pulse Resp Pulse Ox 116 H 8 L 92 04/07/21 21:41 04/07/21 21:41 04/07/21 21:41 General appearance: no acute distress HEENT: Positive: PERRL Cardiac: Positive: Regular Rhythm, Tachycardia Lungs: Positive: Decreased Breath Sounds Neuro: Positive: Grossly Intact Abdomen: Positive: Soft Skin: Negative: Rash, Suspicious Lesions, Ulceration Extremities: Present: upper extr. pulses, edema Results 04/08/21 04:03 04/08/21 04:03 Lipids 04/07/21 Range/Units 22:04 Triglycerides 105 (2-149) mg/dL Cholesterol 85 (50-199) mg/dL HDL Cholesterol 25 L (40-59) mg/dL Cholesterol/HDL Ratio 3.40 % CBC 04/07/21 04/08/21 Range/Units 22:04 04:03 WBC 17.7 H 24.3 H (4.5-11.0) K/mm3 RBC 4.36 4.33 (3.65-5.03) M/mm3 Hgb 9.1 L 9.3 L (10.1-14.3) gm/dl Hct 33.5 32.2 (30.3-42.9) % Plt Count 367 399 (140-440) K/mm3 Comprehensive Metabolic Panel 04/07/21 04/08/21 Range/Units 22:04 04:03 Sodium 135 L 134 L (137-145) mmol/L Potassium 5.0 4.9 (3.6-5.0) mmol/L Chloride 91.0 L 91.2 L (98-107) mmol/L Carbon Dioxide 17 L 23 (22-30) mmol/L BUN 15 16 (7-17) mg/dL Creatinine 1.4 H 1.8 H (0.6-1.2) mg/dL Glucose 55 L 87 (65-100) mg/dL Calcium 8.8 8.6 (8.4-10.2) mg/dL - Imaging and Cardiology Echo: pending, report reviewed EKG: report reviewed, image reviewed EKG interpretations - Telemetry EKG Rhythm: Sinus Tachycardia - EKG Sinus rhythms and dysrhythmias: sinus tachycardia Repolarization changes or abnormalities: nonspecific abnormality, ST segment, and/or T wave Assessment and Plan Patient is a 35 y/o female with a PMHX of morbid obesity, HTN, COPD Elevated troponins Elevated BNP * Troponins minimally elevated 0.032->0.099->0.078. EKG shows sinus tach 116 with no acute ischemic changes. AMI ruled out * BNP noted to be elevated. Hold Lasix in acute renal insufficiency. Echo pending * Echo 08/08/2020- Technically very difficult and limited study, due to patient body habitus EF 55 to 60%, left and right atrium are normal in size right ventricular cavity is normal right ventricular global systolic function Acute Renal insufficiency * Patient cr 1.8 on admission. * Management per primary team HTN * Patient has been hypotensive. * Hold SUNG/ARB in setting of acute renal insufficiency and hypotension Obesity Hypoventilation Syndrome COPD * Patient currently on NC * Management per primary team Echo pending. Hold SUNG/ARB and Lasix in setting of renal insufficiency. Patient seen in conjunction with Dr. Kelly who agrees with this plan of care. Will continue to follow - Patient Problems (1) Elevated troponin Current Visit: Yes Status: Acute (2) Acute renal insufficiency Current Visit: Yes Status: Acute (3) COPD (chronic obstructive pulmonary disease) Current Visit: Yes Status: Acute (4) Hypertension Current Visit: Yes Status: Acute (5) Morbid obesity Current Visit: Yes Status: Acute (6) Morbid obesity with BMI of 70 and over, adult Current Visit: No Status: Acute (7) Obesity hypoventilation syndrome Current Visit: No Status: Acute
[2021-04-08] MEDS: IPRATROPIUM/ALBUTEROL SULFATE 3 ML AMPUL.NEB IH SCH ×2 (17:39→17:40)
[2021-04-08] MEDS: NYSTATIN POWDER 15 GM TP SCH (22:54)
[2021-04-09] MEDS: IPRATROPIUM/ALBUTEROL SULFATE 3 ML AMPUL.NEB IH SCH ×5 (00:19→22:02)
[2021-04-09] MEDS: NYSTATIN POWDER 15 GM TP SCH ×4 (05:27→21:39)
[2021-04-09] MEDS: HEPARIN 5,000 UNIT/1 ML VIAL SUB-Q SCH ×3 (06:21→21:38)
[2021-04-09] MEDS: BENZONATATE 100 MG CAP PO SCH ×4 (06:21→21:38)
[2021-04-09 06:26] LABS: Mean Corpuscular HGB Conc 28 % (30-34); Mean Corpuscular Volume 73 fl (79-97); Platelet Count 339 K/mm3 (140-440); Red Blood Count 4.09 M/mm3 (3.65-5.03)
[2021-04-09 06:33] LABS: Hemoglobin 8.5 gm/dl (10.1-14.3)
[2021-04-09 06:34] LABS: Red Cell Distribution Width 23.9 % (13.2-15.2)
[2021-04-09 06:43] LABS: Calcium 7.7 mg/dL (8.4-10.2)
--- NOTE | 2021-04-09 08:58 | Progress Note ---
Assessment and Plan Assessment and plan: - Patient Problems (1) Non-ST elevation NV (NSTEMI) Current Visit: Yes Status: Acute Plan to address problem: Admit the patient to the medical telemetry. Aspirin 325 mg p.o. daily. Lipitor 40 mg p.o. daily. Nitroglycerin as needed. We do the serial cardiac enzyme. We also consult cardiology for evaluation and order echocardiogram. (2) Acute exacerbation of CHF (congestive heart failure) Current Visit: Yes Status: Acute Plan to address problem: Fluid restriction. Maintain input output. Lasix 40 mg IV every 12 hours. Oxygen via nasal cannula 3 L/min. DuoNeb by nebulizer every 4 hours. Echocardiogram. Cardiology consult (3) Hypertension Current Visit: Yes Status: Acute Plan to address problem: We will continue the home medication. Hydralazine 10 mg IV every 6 hours as needed. We will monitor the blood pressure closely (4) COPD (chronic obstructive pulmonary disease) Current Visit: Yes Status: Acute Plan to address problem: Oxygen by nasal cannula 3 L/min. DuoNeb via nebulizer every 4 hours. Albuterol via nebulizer every 4 hours as needed. (5) Morbid obesity Current Visit: Yes Status: Acute Plan to address problem: We counseled regarding weight reduction. Outpatient follow-up with bariatric surgeon (6) Hyperglycemia Current Visit: Yes Status: Acute Plan to address problem: We will give 1 ampoule of D50. We will put the patient on cardiac diet. We will monitor the blood glucose closely (7) DVT prophylaxis Current Visit: No Status: Acute Plan to address problem: Heparin 5000 units subcu every 8 hours for DVT prophylaxis. Pepcid 20 mg p.o. twice daily for GI prophylaxis. Patient is a full code 04/09 -Patient is on heparin drip for non-STEMI, cardiology is following. -Patient is off Lasix and SUNG inhibitors because of GILBERTO. -Kidney function is worsening overnight and I put a consult for nephrology. -Patient is hypotensive and blood pressure from this morning was 101/41. We will continue to monitor. And if it is dropping we we will give him fluid. -Echo was done and EF of 50 to 55%. Diastolic dysfunction is indeterminate. Management per cardiology -Patient has COPD continues on dexamethasone, nebulizer treatment as needed. -Patient has hyponatremia and hyperkalemia. I give the patient Kayexalate. Monitor electrolytes. Will follow nephrology for additional recommendation. History Interval history: Patient was seen and evaluated this morning Patient was on 3 L of oxygen, which she uses at home Patient was complaining chest pain, no shortness of breath Hospitalist Physical - Physical exam Narrative exam: Not in cardiopulmonary distress. The patient is morbidly obese. Vital signs as documented. Head exam is unremarkable. No scleral icterus . Neck is without jugular venous distension, thyromegaly, or carotid bruits. Lungs are clear to auscultation. Cardiac exam reveals regular rate and Rhythm. Abdominal exam reveals normal bowel sounds, nontender, no organomegaly. Extremities are nonedematous and both femoral and pedal pulses are normal. PHYSICAL THERAPIST CLINIC DIRECTOR: Alert and oriented 3. No focal weakness. - Constitutional Vitals: Temp Pulse Resp BP Pulse Ox 98.6 F 95 H 20 104/47 95 04/09/21 08:50 04/09/21 08:50 04/09/21 08:50 04/09/21 08:50 04/09/21 08:50 General appearance: Present: no acute distress HEART Score - HEART Score Troponin: Troponin T 0.078 ng/mL (0.00-0.029) H D 04/08/21 13:03 Results - Labs CBC & Chem 7: 04/09/21 04:52 04/09/21 04:52 Labs: Laboratory Last Values WBC 20.9 K/mm3 (4.5-11.0) H 04/09/21 04:52 RBC 4.09 M/mm3 (3.65-5.03) 04/09/21 04:52 Hgb 8.5 gm/dl (10.1-14.3) L 04/09/21 04:52 Hct 30.0 % (30.3-42.9) L 04/09/21 04:52 MCV 73 fl (79-97) L 04/09/21 04:52 MCH 21 pg (28-32) L 04/09/21 04:52 MCHC 28 % (30-34) L 04/09/21 04:52 RDW 23.9 % (13.2-15.2) H 04/09/21 04:52 Plt Count 339 K/mm3 (140-440) 04/09/21 04:52 Add Manual Diff Complete 04/08/21 04:03 Total Counted 100 09/22/21 04:03 Seg Neuts % (Manual) 78.0 % (40.0-70.0) H 04/08/21 04:03 Band Neutrophils % 9.0 % 04/08/21 04:03 Lymphocytes % (Manual) 7.0 % (13.4-35.0) L 04/08/21 04:03 Monocytes % (Manual) 4.0 % (0.0-7.3) 04/08/21 04:03 Myelocytes % 2.0 % 04/08/21 04:03 Nucleated RBC % 1.0 % (0.0-0.9) H 04/08/21 04:03 Seg Neutrophils # Man 19.0 K/mm3 (1.8-7.7) H 04/08/21 04:03 Band Neutrophils # 2.2 K/mm3 04/08/21 04:03 Lymphocytes # (Manual) 1.7 K/mm3 (1.2-5.4) 04/08/21 04:03 Abs React Lymphs (Man) 0.0 K/mm3 04/08/21 04:03 Monocytes # (Manual) 1.0 K/mm3 (0.0-0.8) H 04/08/21 04:03 Eosinophils # (Manual) 0.0 K/mm3 (0.0-0.4) 04/08/21 04:03 Basophils # (Manual) 0.0 K/mm3 (0.0-0.1) 04/08/21 04:03 Metamyelocytes # 0.0 K/mm3 04/08/21 04:03 Myelocytes # 0.5 K/mm3 04/08/21 04:03 Promyelocytes # 0.0 K/mm3 04/08/21 04:03 Blast Cells # 0.0 K/mm3 04/08/21 04:03 WBC Morphology Not Reportable 04/08/21 04:03 Hypersegmented Neuts Not Reportable 04/08/21 04:03 Hyposegmented Neuts Not Reportable 04/08/21 04:03 Hypogranular Neuts Not Reportable 04/08/21 04:03 Smudge Cells Not Reportable 04/08/21 04:03 Toxic Granulation Not Reportable 04/08/21 04:03 Toxic Vacuolation Not Reportable 04/08/21 04:03 Dohle Bodies Not Reportable 04/08/21 04:03 Pelger-Huet Anomaly Not Reportable 04/08/21 04:03 Ana Cristina Rods Not Reportable 04/08/21 04:03 Platelet Estimate Consistent w auto 04/08/21 04:03 Clumped Platelets Not Reportable 04/08/21 04:03 Plt Clumps, EDTA Not Reportable 04/08/21 04:03 Large Platelets Not Reportable 04/08/21 04:03 Giant Platelets Not Reportable 04/08/21 04:03 Platelet Satelliting Not Reportable 04/08/21 04:03 Plt Morphology Comment Not Reportable 04/08/21 04:03 RBC Morphology Not Reportable 04/08/21 04:03 Dimorphic RBCs Not Reportable 04/08/21 04:03 Polychromasia Not Reportable 04/08/21 04:03 Hypochromasia 2+ 04/08/21 04:03 Poikilocytosis Not Reportable 04/08/21 04:03 Anisocytosis 2+ 04/08/21 04:03 Microcytosis Not Reportable 04/08/21 04:03 Macrocytosis Not Reportable 04/08/21 04:03 Spherocytes Not Reportable 04/08/21 04:03 Pappenheimer Bodies Not Reportable 04/08/21 04:03 Sickle Cells Not Reportable 04/08/21 04:03 Target Cells Not Reportable 04/08/21 04:03 Tear Drop Cells Not Reportable 04/08/21 04:03 Ovalocytes Not Reportable 04/08/21 04:03 Helmet Cells Not Reportable 04/08/21 04:03 Saravia-Reardan Bodies Not Reportable 04/08/21 04:03 Alice Rings Not Reportable 04/08/21 04:03 Sara Cells Not Reportable 04/08/21 04:03 Bite Cells Not Reportable 04/08/21 04:03 Crenated Cell Not Reportable 04/08/21 04:03 Elliptocytes Not Reportable 04/08/21 04:03 Acanthocytes (Spur) Not Reportable 04/08/21 04:03 Rouleaux Not Reportable 04/08/21 04:03 Hemoglobin C Crystals Not Reportable 04/08/21 04:03 Schistocytes Not Reportable 04/08/21 04:03 Malaria parasites Not Reportable 04/08/21 04:03 Tyshawn Bodies Not Reportable 04/08/21 04:03 Hem Pathologist Commnt No 04/08/21 04:03 Sodium 129 mmol/L (137-145) L 04/09/21 04:52 Potassium 5.6 mmol/L (3.6-5.0) H 04/09/21 04:52 Chloride 88.6 mmol/L (98-107) L 04/09/21 04:52 Carbon Dioxide 26 mmol/L (22-30) 04/09/21 04:52 Anion Gap 20 mmol/L 04/09/21 04:52 BUN 27 mg/dL (7-17) H 04/09/21 04:52 Creatinine 2.4 mg/dL (0.6-1.2) H 04/09/21 04:52 Estimated GFR 28 ml/min 04/09/21 04:52 BUN/Creatinine Ratio 11 % 04/09/21 04:52 Glucose 121 mg/dL (65-100) H 04/09/21 04:52 POC Glucose 139 mg/dL (70-105) H 04/09/21 08:46 Calcium 7.7 mg/dL (8.4-10.2) L 04/09/21 04:52 Troponin T 0.078 ng/mL (0.00-0.029) H D 04/08/21 13:03 NT-Pro-B Natriuret Pep 7573 pg/mL (0-450) H 04/07/21 22:04 Triglycerides 105 mg/dL (2-149) 04/07/21 22:04 Cholesterol 85 mg/dL (50-199) 04/07/21 22:04 LDL Cholesterol Direct 47 mg/dL (50-130) L 04/07/21 22:04 HDL Cholesterol 25 mg/dL (40-59) L 04/07/21 22:04 Cholesterol/HDL Ratio 3.40 % 04/07/21 22:04 Zambrano/IV: Voiding Method External Female Catheter Active Medications - Current Medications Current Medications: Generic Name Dose Route Start Last Admin Trade Name Freq PRN Reason Stop Dose Admin Acetaminophen 650 mg 04/08/21 03:00 Acetaminophen 325 Mg Tab PO Q4H PRN Pain MILD(1-3)/Fever >100.5/BROWN Albuterol 2.5 mg 04/08/21 03:00 Albuterol 2.5 Mg/3 Ml Nebu IH Q4HRT PRN Shortness Of Breath Albuterol/Ipratropium 1 ampul 04/08/21 08:00 04/09/21 01:05 Ipratropium/Albuterol Sulfate 3 Ml Ampul.Neb IH Not Given TIDRT [facility] Aspirin 325 mg 04/09/21 10:00 Aspirin Ec 325 Mg Tab PO QDAY [facility] Atorvastatin Calcium 40 mg 04/08/21 22:00 04/08/21 22:52 Atorvastatin 40 Mg Tab PO 40 mg QHS EKATERINA Administration Azithromycin 500 mg 04/09/21 10:00 Azithromycin 250 Mg Tab PO 04/13/21 10:01 DAILY [facility] Protocol Benzonatate 100 mg 04/08/21 06:00 04/09/21 06:21 Benzonatate 100 Mg Cap PO 100 mg Q8HR EKATERINA Administration Famotidine 20 mg 04/08/21 10:00 04/08/21 22:52 Famotidine 20 Mg Tab PO 20 mg BID [facility] Administration Heparin Sodium (Porcine) 5,000 unit 04/08/21 06:00 04/09/21 06:21 Heparin 5,000 Unit/1 Ml Vial SUB-Q 5,000 unit Q8HR [facility] Administration Hydromorphone HCl 0.5 mg 04/08/21 03:00 Hydromorphone 1 Mg/1 Ml Inj IV Q3H PRN Pain , Severe (7-10) Sodium Chloride 1,000 mls @ 125 mls/hr 04/09/21 09:00 Nacl 0.9% 1000 Ml IV 04/09/21 20:59 DIRECT [facility] Methylprednisolone 4 mg 04/08/21 10:00 04/08/21 11:03 Methylprednisolone 4 Mg Tab PO 4 mg DAILY [facility] Administration Nitroglycerin 0.4 mg 04/08/21 03:00 Nitroglycerin 0.4 Mg Tab Subl SL Q5M PRN Chest Pain Nystatin 1 applic 04/08/21 18:00 04/09/21 05:27 Nystatin Powder 15 Gm TP Not Given BID [facility] Ondansetron HCl 4 mg 04/08/21 03:00 Ondansetron 4 Mg/2 Ml Inj IV Q8H PRN Nausea And Vomiting Oxycodone/Acetaminophen 1 tab 04/08/21 03:00 Oxycodone /Acetaminophen 5-325mg Tab PO Q6H PRN Pain, Moderate (4-6) Sodium Chloride 10 ml 04/08/21 10:00 04/08/21 22:52 Sodium Chloride 0.9% 10 Ml Flush Syringe IV 10 ml BID EKATERINA Administration Sodium Chloride 10 ml 04/08/21 03:00 Sodium Chloride 0.9% 10 Ml Flush Syringe IV PRN PRN LINE FLUSH Sodium Polystyrene Sulfonate 30 gm 04/09/21 08:54 Sodium Polystyrene 15 Gm/60 Ml Oral Liqd PO 04/09/21 08:55 ONCE ONE Tramadol HCl 50 mg 04/08/21 03:00 Tramadol 50 Mg Tab PO Q6H PRN Pain, Moderate (4-6) Nutrition/Malnutrition Assess - Dietary Evaluation Nutrition/Malnutrition Findings: Nutrition Notes Start: 04/08/21 14:21 Freq: Status: Active Protocol: Document 04/08/21 14:21 GB (Rec: 04/08/21 14:37 GB [email or web address]) Nutrition Notes Need for Assessment generated from: cytogenetics laboratory manager Initial or Follow up Assessment Current Diagnosis Hypertension Other Pertinent Diagnosis Dyspnea, respiratory distress, morbid obesity Current Diet Cardiac Labs/Tests 04/08: Na 134 low [id number] Creatinine 1.8 elevated [id number] Pertinent Medications azithromycin, fluid restriction Height 5 ft 4 in Weight 272.155 kg [place] Body Weight (kg) 54.54 BMI 102.9 Intake Prior to Admission Good Weight change and time frame Pt reports no significant weight change. Weight Status Morbidly Obese Subjective/Other Information Pt states she does want to lose weight. This leader writer, MANJEET, discussed with pt to select a changeable habits to focus on and make the changes a few items at a time (examples if eat out 5 nights change to 3 nights/ 1 fruit a day change to 2 fruit a day). Encouraged pt to contact RD in Bariatric center for outpatient counseling. Percent of energy/protein needs met: Meals and snacks provided meet 100% of estimated energy needs. Burn Absent Trauma Absent GI Symptoms None Food Allergy No Usual Diet at Home regular Skin Integrity/Comment skin risk 13 Current % PO Good (75-100%) Minimum of two criteria No #1 Nutrition Diagnosis Overweight/obesity Comments: Discussed diet/life style changes using small goal successes to advancement, encouraged outpatient RD counseling at bariatric center Etiology dyspnea, respiratory distress As Evidenced by Signs and Symptoms BMI 103, IBW 498% Is patient on ventilator? No Is Patient Ambulatory and/or Out of Bed No REE-([place] Jeor-confined to bed) 4093.764 Kcal/Kg value to use for calculation 10 Approximate Energy Requirements Using 2722 kcal/Kg Calculation Used for Recommendations Kcal/kg Additional Notes Protein 0.6 g/kg r/t BMI over 50: 163g Fluids: 1ml/kcal or per MD Nutrition Intervention Change Diet Order: continue with current diet Nutrition Support: n/a Add Supplement/Snack (indicate name/kcal n/a /protein ) Teaching Recipient Patient Learning Readiness Good Teaching Methods Discussion Response to Teaching Verbalize understanding Barriers to Learning Motivation,Emotional,Social Patient aware of follow up options Yes Actions To Overcome Barriers Collaboration with Other Providers Goal #1 Pt to contact and make appointment with outpatient RD in bariatric center Goal #2 weight to decrease -1% during LOS Follow-Up By: 04/13/21
[2021-04-09] MEDS ORDERED: SODIUM CHLORIDE 0.9% 1000 ML 1,000 ML IV SCH (09:00)
[2021-04-09] MEDS ORDERED: SODIUM POLYSTYRENE 15 GM/60 ML ORAL LIQD PO SCH (09:00)
[2021-04-09] MEDS: FAMOTIDINE 20 MG TAB PO SCH (09:58)
[2021-04-09] MEDS: methylPREDNISolone 4 MG TAB PO SCH (09:58)
[2021-04-09] MEDS: ASPIRIN EC 325 MG TAB PO SCH (09:58)
[2021-04-09] MEDS: AZITHROMYCIN 250 MG TAB PO SCH (10:02)
[2021-04-09 10:08] LABS: Band Neutrophils # (Manual) 2.7 K/mm3; Total Cells Counted 100
[2021-04-09 10:14] LABS: Anisocytosis 2+; Hypochromasia 2+; Large Platelets 2+; Platelet Clumps 1+; Platelet Estimate Consistent w Auto; Platelet Satelitosis Rare; Target Cells 1+; Toxic Granulation 2+; Toxic Vacuolation 2+
--- NOTE | 2021-04-09 11:47 | Progress Note ---
Assessment and Plan Patient is a 35 y/o female with a PMHX of morbid obesity, HTN, COPD NSTEMI type 2 Elevated BNP * Troponins minimally elevated 0.032->0.099->0.078. EKG shows sinus tach 116 with no acute ischemic changes. AMI ruled out * BNP noted to be elevated. Hold Lasix in acute renal insufficiency. Echo pending * Echo 08/08/2020- Technically very difficult and limited study, due to patient body habitus EF 55 to 60%, left and right atrium are normal in size right ventricular cavity is normal right ventricular global systolic function * Echo 04/08/2021-technically difficult study, contrast used for LV function, EF 55 to 60%, right ventricular systolic function is normal, aortic valve not well visualized Acute Renal insufficiency Hyponatremia * Patient cr 1.8 on admission. * Nephrology following HTN * Patient has been hypotensive. * Hold SUNG/ARB in setting of acute renal insufficiency and hypotension Obesity Hypoventilation Syndrome COPD * Patient currently on NC * Management per primary team Plan: Normal EF on echo. Continue to hold SUNG/ARB, HCTZ, and Lasix in setting of renal insufficiency. BMP in AM. No ischemic eval due to patient's due patient's obesity. Patient seen in conjunction with Dr. Kelly who agrees with this plan of care. Will continue to follow - Patient Problems (1) Elevated troponin Current Visit: Yes Status: Acute (2) Acute renal insufficiency Current Visit: Yes Status: Acute (3) COPD (chronic obstructive pulmonary disease) Current Visit: Yes Status: Acute (4) Hypertension Current Visit: Yes Status: Acute (5) Morbid obesity Current Visit: Yes Status: Acute (6) Morbid obesity with BMI of 70 and over, adult Current Visit: No Status: Acute (7) Obesity hypoventilation syndrome Current Visit: No Status: Acute Subjective Date of service: 04/09/21 Principal diagnosis: Acute on chronic renal insufficiency Interval history: Patient lying in bed. Sinus 95 with no events on monitor Objective Vital Signs Temp Pulse Pulse Pulse Resp BP Pulse Ox 04/09/21 08:50 98.6 F 95 H 20 104/47 95 04/09/21 05:44 98.1 F 94 H 18 101/41 95 04/09/21 01:05 98 04/09/21 00:20 106 H 04/08/21 19:50 93 04/08/21 19:27 98.0 F 106 H 20 108/50 93 04/08/21 15:52 97.4 F L 89 139/113 04/08/21 14:13 79 79 17 95 - Physical Examination General: No Apparent Distress HEENT: Positive: PERRL Cardiac: Positive: Reg Rate and Rhythm Lungs: Positive: Decreased Breath Sounds Neuro: Positive: Grossly Intact Abdomen: Positive: Soft Skin: Negative: Rash, Suspicious Lesions, Ulceration Extremities: Present: upper extr. pulses, edema - Labs and Meds CBC 04/09/21 Range/Units 04:52 WBC 20.9 H (4.5-11.0) K/mm3 RBC 4.09 (3.65-5.03) M/mm3 Hgb 8.5 L (10.1-14.3) gm/dl Hct 30.0 L (30.3-42.9) % Plt Count 339 (140-440) K/mm3 Comprehensive Metabolic Panel 04/09/21 Range/Units 04:52 Sodium 129 L (137-145) mmol/L Potassium 5.6 H (3.6-5.0) mmol/L Chloride 88.6 L (98-107) mmol/L Carbon Dioxide 26 (22-30) mmol/L BUN 27 H (7-17) mg/dL Creatinine 2.4 H (0.6-1.2) mg/dL Glucose 121 H (65-100) mg/dL Calcium 7.7 L (8.4-10.2) mg/dL - Imaging and Cardiology EKG: report reviewed, image reviewed Echo: report reviewed - Telemetry EKG Rhythm: Sinus Rhythm - EKG Sinus rhythms and dysrhythmias: sinus tachycardia Repolarization changes or abnormalities: nonspecific abnormality, ST segment, and/or T wave
[2021-04-09 17:08] LABS: Calcium 7.3 mg/dL (8.4-10.2)
--- NOTE | 2021-04-09 17:46 | Consultation ---
History of Present Illness - Reason for Consult Consult date: 04/09/21 acute renal failure - History of Present Illness This is a 35-year-old woman with morbid obesity and hypertension who presented with 1 month history of progressive shortness of breath and lower extremity swelling. In the emergency department she was noted to be in heart for exacerbation along with acute kidney injury and was admitted for further workup. Nephrology was consulted for acute kidney injury. Patient is somnolent and is unable to provide details at this time. History has been obtained from chart. Past History Past Medical History: COPD, hypertension, other (Asthma, morbid obesity, sleep apnea) Social history: no significant social history Family history: CAD, diabetes Medications and Allergies Allergies Allergy/AdvReac Type Severity Reaction Status Date / Time No Known Allergies Allergy Unverified 01/27/17 11:17 Home Medications Medication Instructions Recorded Confirmed Last Taken Type Acetaminophen [Acetaminophen TAB] 325 mg PO Q4H PRN #30 tablet 06/30/17 08/08/20 Unknown Rx ALBUTEROL NEB's [Proventil 0.083% 2.5 mg IH Q3HRT PRN #30 day 08/10/20 Unknown Rx NEBS] Albuterol Mdi (or & Nicu Only) 2 puff IH QID PRN #1 inhalation 08/10/20 Unknown Rx [ProAir HFA Inhaler] Azithromycin [Zithromax Z-BIN] 0 mg PO DAILY #1 tab 08/10/20 Unknown Rx Benzonatate [Tessalon Perles] 100 mg PO Q8HR #15 capsule 08/10/20 Unknown Rx Famotidine [Pepcid] 20 mg PO BID #14 tablet 08/10/20 Unknown Rx Ipratropium/Albuterol Sulfate 1 ampul IH TIDRT #30 day 08/10/20 Unknown Rx [DUONEB *Not for PRN Use*] hydroCHLOROthiazide [HCTZ] 25 mg PO QDAY tablet 08/10/20 Unknown Rx hydroCHLOROthiazide [HCTZ] 25 mg PO QDAY #30 tablet 08/10/20 Unknown Rx methylPREDNISolone [Medrol 4MG 4 mg PO DAILY #1 tab.ds.pk 08/10/20 Unknown Rx DOSEPAK (21 tabs)] Active Meds: Active Medications Acetaminophen (Acetaminophen 325 Mg Tab) 650 mg PO Q4H PRN PRN Reason: Pain MILD(1-3)/Fever >100.5/BROWN Albuterol (Albuterol 2.5 Mg/3 Ml Nebu) 2.5 mg IH Q4HRT PRN PRN Reason: Shortness Of Breath Albuterol/Ipratropium (Ipratropium/Albuterol Sulfate 3 Ml Ampul.Neb) 1 ampul IH TIDRT [facility] Last Admin: 04/09/21 11:27 Dose: 1 ampul Documented by: Aspirin (Aspirin Ec 325 Mg Tab) 325 mg PO QDAY [facility] Last Admin: 04/09/21 09:58 Dose: 325 mg Documented by: Atorvastatin Calcium (Atorvastatin 40 Mg Tab) 40 mg PO QHS [facility] Last Admin: 04/08/21 22:52 Dose: 40 mg Documented by: Azithromycin (Azithromycin 250 Mg Tab) 500 mg PO DAILY [facility]; Protocol Stop: 04/13/21 10:01 Last Admin: 04/09/21 10:02 Dose: 500 mg Documented by: Benzonatate (Benzonatate 100 Mg Cap) 100 mg PO Q8HR [facility] Last Admin: 04/09/21 14:41 Dose: 100 mg Documented by: Famotidine (Famotidine 10 Mg Tab) 10 mg PO BID [facility] Heparin Sodium (Porcine) (Heparin 5,000 Unit/1 Ml Vial) 5,000 unit SUB-Q Q8HR [facility] Last Admin: 04/09/21 14:45 Dose: 5,000 unit Documented by: Hydromorphone HCl (Hydromorphone 1 Mg/1 Ml Inj) 0.5 mg IV Q3H PRN PRN Reason: Pain , Severe (7-10) Sodium Chloride (Nacl 0.9% 1000 Ml) 1,000 mls @ 125 mls/hr IV DIRECT [facility] Stop: 04/09/21 20:59 Last Admin: 04/09/21 09:59 Dose: 125 mls/hr Documented by: Methylprednisolone (Methylprednisolone 4 Mg Tab) 4 mg PO DAILY [facility] Last Admin: 04/09/21 09:58 Dose: 4 mg Documented by: Nitroglycerin (Nitroglycerin 0.4 Mg Tab Subl) 0.4 mg SL Q5M PRN PRN Reason: Chest Pain Nystatin (Nystatin Powder 15 Gm) 1 applic TP BID [facility] Last Admin: 04/09/21 11:43 Dose: Not Given Documented by: Ondansetron HCl (Ondansetron 4 Mg/2 Ml Inj) 4 mg IV Q8H PRN PRN Reason: Nausea And Vomiting Oxycodone/Acetaminophen (Oxycodone /Acetaminophen 5-325mg Tab) 1 tab PO Q6H PRN PRN Reason: Pain, Moderate (4-6) Sodium Chloride (Sodium Chloride 0.9% 10 Ml Flush Syringe) 10 ml IV BID EKATERINA Last Admin: 04/09/21 09:59 Dose: 10 ml Documented by: Sodium Chloride (Sodium Chloride 0.9% 10 Ml Flush Syringe) 10 ml IV PRN PRN PRN Reason: LINE FLUSH Tramadol HCl (Tramadol 50 Mg Tab) 50 mg PO Q6H PRN PRN Reason: Pain, Moderate (4-6) Review of Systems ROS unobtainable: due to mental status Exam - Vital Signs Vital signs: Vital Signs Pulse Resp Pulse Ox 116 H 8 L 92 04/07/21 21:41 04/07/21 21:41 04/07/21 21:41 - Physical Exam Narrative exam: General: Morbid obesity HEENT: Oral mucosa moist Neck: Supple, no JVD Chest: Clear to auscultation bilaterally Heart: RRR, S1 and S2, no pericardial rub Abdomen: Soft, nontender, no renal bruit Extremity: No peripheral cyanosis, edema Neurological: Somnolent, awakens to sternal rub Dermatology: Unable to assess Psych: No agitation Musculoskeletal: No joint effusion Results - Lab Results 04/09/21 04:52 04/09/21 15:46 Most recent lab results Calcium 7.3 mg/dL (8.4-10.2) L 04/09/21 15:46 Assessment and Plan Assessment Acute kidney injury, unknown baseline Hyponatremia Hyperkalemia Hypotension Hypocalcemia Morbid obesity Recommendations Order Kayexalate Check urine electrolytes Check renal ultrasound Check cortisol Check ionized calcium Maintain MAP more than 65 Hold SUNG/ARB at this time Hold diuretics given soft pressures Renally dose medications Avoid nephrotoxins Renal diet
[2021-04-09] MEDS: SODIUM POLYSTYRENE 15 GM/60 ML ORAL LIQD PO SCH (18:43)
[2021-04-09 19:00] LABS: Osmolality,Urine 157 Mosm/kg
[2021-04-09] MEDS: FAMOTIDINE 10 MG TAB PO SCH (21:38)
[2021-04-10 03:06] LABS: Calcium 7.2 mg/dL (8.4-10.2)
[2021-04-10] MEDS: BENZONATATE 100 MG CAP PO SCH ×3 (05:25→22:30)
[2021-04-10] MEDS: HEPARIN 5,000 UNIT/1 ML VIAL SUB-Q SCH ×3 (05:25→22:30)
[2021-04-10] MEDS ORDERED: SODIUM POLYSTYRENE 15 GM/60 ML ORAL LIQD PO NR (07:57)
--- NOTE | 2021-04-10 08:50 | Electrocardiograph Report ---
[facility] Test Date: 2021-04-10 Test Time: 06:41:52 Pat Name: FRANCISCO VERA Department: Room: A459 Gender: F Computer Network Engineer: RHIANNON : 1985 Requested By: ONEAL LOERA Order Number: [id number] Reading MD: Elliott Kelly Measurements Intervals [place] Rate: 94 P: 71 MA: 116 QRS: 71 QRSD: 78 T: -50 QT: 348 QTc: 435 Interpretive Statements Sinus rhythm Probable left atrial enlargement nonspecific st-t Compared to ECG 04/07/2021 22:34:19 Sinus tachycardia no longer present Ventricular premature complex(es) no longer present T-wave abnormality no longer present Electronically Signed On 04-10-2021 8:50:26 EDT by Elliott Kelly
--- NOTE | 2021-04-10 09:04 | Progress Note ---
Assessment and Plan Assessment and plan: - Patient Problems (1) Non-ST elevation VA (NSTEMI) Current Visit: Yes Status: Acute Plan to address problem: Admit the patient to the medical telemetry. Aspirin 325 mg p.o. daily. Lipitor 40 mg p.o. daily. Nitroglycerin as needed. We do the serial cardiac enzyme. We also consult cardiology for evaluation and order echocardiogram. (2) Acute exacerbation of CHF (congestive heart failure) Current Visit: Yes Status: Acute Plan to address problem: Fluid restriction. Maintain input output. Lasix 40 mg IV every 12 hours. Oxygen via nasal cannula 3 L/min. DuoNeb by nebulizer every 4 hours. Echocardiogram. Cardiology consult (3) Hypertension Current Visit: Yes Status: Acute Plan to address problem: We will continue the home medication. Hydralazine 10 mg IV every 6 hours as needed. We will monitor the blood pressure closely (4) COPD (chronic obstructive pulmonary disease) Current Visit: Yes Status: Acute Plan to address problem: Oxygen by nasal cannula 3 L/min. DuoNeb via nebulizer every 4 hours. Albuterol via nebulizer every 4 hours as needed. (5) Morbid obesity Current Visit: Yes Status: Acute Plan to address problem: We counseled regarding weight reduction. Outpatient follow-up with bariatric surgeon (6) Hyperglycemia Current Visit: Yes Status: Acute Plan to address problem: We will give 1 ampoule of D50. We will put the patient on cardiac diet. We will monitor the blood glucose closely (7) DVT prophylaxis Current Visit: No Status: Acute Plan to address problem: Heparin 5000 units subcu every 8 hours for DVT prophylaxis. Pepcid 20 mg p.o. twice daily for GI prophylaxis. Patient is a full code 04/09 -Patient is on heparin drip for non-STEMI, cardiology is following. -Patient is off Lasix and SUNG inhibitors because of GILBERTO. -Kidney function is worsening overnight and I put a consult for nephrology. -Patient is hypotensive and blood pressure from this morning was 101/41. We will continue to monitor. And if it is dropping we we will give him fluid. -Echo was done and EF of 50 to 55%. Diastolic dysfunction is indeterminate. Management per cardiology -Patient has COPD continues on dexamethasone, nebulizer treatment as needed. -Patient has hyponatremia and hyperkalemia. I give the patient Kayexalate. Monitor electrolytes. Will follow nephrology for additional recommendation. 04/10 -Renal function is worsening, nephrology is following -Blood pressure is better today -Hyperkalemia; I added Kayexalate -Morbid obesity History Interval history: Patient was seen and evaluated this morning Patient was on 3 L of oxygen, which she uses at home Patient was complaining chest pain, no shortness of breath Hospitalist Physical - Physical exam Narrative exam: Not in cardiopulmonary distress. The patient is morbidly obese. Vital signs as documented. Head exam is unremarkable. No scleral icterus . Neck is without jugular venous distension, thyromegaly, or carotid bruits. Lungs are clear to auscultation. Cardiac exam reveals regular rate and Rhythm. Abdominal exam reveals normal bowel sounds, nontender, no organomegaly. Extremities are nonedematous and both femoral and pedal pulses are normal. [employer] WORKER: Alert and oriented 3. No focal weakness. - Constitutional Vitals: Temp Pulse Resp BP Pulse Ox 98.8 F 95 H 18 114/71 91 04/09/21 19:26 04/10/21 00:00 04/09/21 21:57 04/09/21 19:26 04/10/21 07:49 General appearance: Present: no acute distress HEART Score - HEART Score Troponin: Troponin T 0.078 ng/mL (0.00-0.029) H D 04/08/21 13:03 Results - Labs CBC & Chem 7: 04/09/21 04:52 04/10/21 02:20 Labs: Laboratory Last Values WBC 20.9 K/mm3 (4.5-11.0) H 04/09/21 04:52 RBC 4.09 M/mm3 (3.65-5.03) 04/09/21 04:52 Hgb 8.5 gm/dl (10.1-14.3) L 04/09/21 04:52 Hct 30.0 % (30.3-42.9) L 04/09/21 04:52 MCV 73 fl (79-97) L 04/09/21 04:52 MCH 21 pg (28-32) L 04/09/21 04:52 MCHC 28 % (30-34) L 04/09/21 04:52 RDW 23.9 % (13.2-15.2) H 04/09/21 04:52 Plt Count 339 K/mm3 (140-440) 04/09/21 04:52 Add Manual Diff Complete 04/09/21 04:52 Total Counted 100 04/09/21 04:52 Seg Neuts % (Manual) 77.0 % (40.0-70.0) H 04/09/21 04:52 Band Neutrophils % 13.0 % 04/09/21 04:52 Lymphocytes % (Manual) 1.0 % (13.4-35.0) L 04/09/21 04:52 Reactive Lymphs % (Man) 6.0 % 04/09/21 04:52 Monocytes % (Manual) 2.0 % (0.0-7.3) 04/09/21 04:52 Metamyelocytes % 1.0 % 04/09/21 04:52 Myelocytes % 2.0 % 04/08/21 04:03 Nucleated RBC % 1.0 % (0.0-0.9) H 04/09/21 04:52 Seg Neutrophils # Man 16.1 K/mm3 (1.8-7.7) H 04/09/21 04:52 Band Neutrophils # 2.7 K/mm3 04/09/21 04:52 Lymphocytes # (Manual) 0.2 K/mm3 (1.2-5.4) L 04/09/21 04:52 Abs React Lymphs (Man) 1.3 K/mm3 04/09/21 04:52 Monocytes # (Manual) 0.4 K/mm3 (0.0-0.8) 04/09/21 04:52 Eosinophils # (Manual) 0.0 K/mm3 (0.0-0.4) 04/09/21 04:52 Basophils # (Manual) 0.0 K/mm3 (0.0-0.1) 04/09/21 04:52 Metamyelocytes # 0.2 K/mm3 04/09/21 04:52 Myelocytes # 0.0 K/mm3 04/09/21 04:52 Promyelocytes # 0.0 K/mm3 04/09/21 04:52 Blast Cells # 0.0 K/mm3 04/09/21 04:52 WBC Morphology Not Reportable 04/09/21 04:52 Hypersegmented Neuts Not Reportable 04/09/21 04:52 Hyposegmented Neuts Not Reportable 04/09/21 04:52 Hypogranular Neuts Not Reportable 04/09/21 04:52 Smudge Cells Not Reportable 04/09/21 04:52 Toxic Granulation 2+ 04/09/21 04:52 Toxic Vacuolation 2+ 04/09/21 04:52 Dohle Bodies Not Reportable 04/09/21 04:52 Pelger-Huet Anomaly Not Reportable 04/09/21 04:52 Ana Cristina Rods Not Reportable 04/09/21 04:52 Platelet Estimate Consistent w auto 04/09/21 04:52 Clumped Platelets 1+ 04/09/21 04:52 Plt Clumps, EDTA Not Reportable 04/09/21 04:52 Large Platelets 2+ 04/09/21 04:52 Giant Platelets Not Reportable 04/09/21 04:52 Platelet Satelliting Rare 04/09/21 04:52 Plt Morphology Comment Not Reportable 04/09/21 04:52 RBC Morphology Not Reportable 04/09/21 04:52 Dimorphic RBCs Not Reportable 04/09/21 04:52 Polychromasia Not Reportable 04/09/21 04:52 Hypochromasia 2+ 04/09/21 04:52 Poikilocytosis Not Reportable 04/09/21 04:52 Anisocytosis 2+ 04/09/21 04:52 Microcytosis Not Reportable 04/09/21 04:52 Macrocytosis Not Reportable 04/09/21 04:52 Spherocytes Not Reportable 04/09/21 04:52 Pappenheimer Bodies Not Reportable 04/09/21 04:52 Sickle Cells Not Reportable 04/09/21 04:52 Target Cells 1+ 04/09/21 04:52 Tear Drop Cells Not Reportable 04/09/21 04:52 Ovalocytes Not Reportable 04/09/21 04:52 Helmet Cells Not Reportable 04/09/21 04:52 [place] Bodies Not Reportable 04/09/21 04:52 [place] Rings Not Reportable 04/09/21 04:52 Sara Cells Not Reportable 04/09/21 04:52 Bite Cells Not Reportable 04/09/21 04:52 Crenated Cell Not Reportable 04/09/21 04:52 Elliptocytes Not Reportable 04/09/21 04:52 Acanthocytes (Spur) Not Reportable 04/09/21 04:52 Rouleaux Not Reportable 04/09/21 04:52 Hemoglobin C Crystals Not Reportable 04/09/21 04:52 Schistocytes Not Reportable 04/09/21 04:52 Malaria parasites Not Reportable 04/09/21 04:52 Tyshawn Bodies Not Reportable 04/09/21 04:52 Hem Pathologist Commnt No 04/09/21 04:52 Sodium 128 mmol/L (137-145) L 04/10/21 02:20 Potassium 5.2 mmol/L (3.6-5.0) H 04/10/21 02:20 Chloride 88.6 mmol/L (98-107) L 04/10/21 02:20 Carbon Dioxide 25 mmol/L (22-30) 04/10/21 02:20 Anion Gap 20 mmol/L 04/10/21 02:20 BUN 39 mg/dL (7-17) H 04/10/21 02:20 Creatinine 3.1 mg/dL (0.6-1.2) H 04/10/21 02:20 Estimated GFR 21 ml/min 04/10/21 02:20 BUN/Creatinine Ratio 13 % 04/10/21 02:20 Glucose 171 mg/dL (65-100) H 04/10/21 02:20 POC Glucose 168 mg/dL (70-105) H 04/10/21 07:39 Osmolality 301 Mosm/kg 04/09/21 23:15 Calcium 7.2 mg/dL (8.4-10.2) L 04/10/21 02:20 Troponin T 0.078 ng/mL (0.00-0.029) H D 04/08/21 13:03 NT-Pro-B Natriuret Pep 7573 pg/mL (0-450) H 04/07/21 22:04 Triglycerides 105 mg/dL (2-149) 04/07/21 22:04 Cholesterol 85 mg/dL (50-199) 04/07/21 22:04 LDL Cholesterol Direct 47 mg/dL (50-130) L 04/07/21 22:04 HDL Cholesterol 25 mg/dL (40-59) L 04/07/21 22:04 Cholesterol/HDL Ratio 3.40 % 04/07/21 22:04 Urine Osmolality 157 Mosm/kg 04/09/21 18:46 Urine Sodium 16 mmol/L 04/09/21 18:46 Zambrano/IV: Voiding Method External Female Catheter Active Medications - Current Medications Current Medications: Generic Name Dose Route Start Last Admin Trade Name Freq PRN Reason Stop Dose Admin Acetaminophen 650 mg 04/08/21 03:00 Acetaminophen 325 Mg Tab PO Q4H PRN Pain MILD(1-3)/Fever >100.5/BROWN Albuterol 2.5 mg 04/08/21 03:00 Albuterol 2.5 Mg/3 Ml Nebu IH Q4HRT PRN Shortness Of Breath Albuterol/Ipratropium 1 ampul 04/08/21 08:00 04/09/21 22:02 Ipratropium/Albuterol Sulfate 3 Ml Ampul.Neb IH 1 ampul TIDRT EKATERINA Administration Aspirin 325 mg 04/09/21 10:00 04/09/21 09:58 Aspirin Ec 325 Mg Tab PO 325 mg QDAY EKATERINA Administration Atorvastatin Calcium 40 mg 04/08/21 22:00 04/09/21 21:38 Atorvastatin 40 Mg Tab PO 40 mg QHS EKATERINA Administration Azithromycin 500 mg 04/09/21 10:00 04/09/21 10:02 Azithromycin 250 Mg Tab PO 04/13/21 10:01 500 mg DAILY EKATERINA Administration Protocol Benzonatate 100 mg 04/08/21 06:00 04/10/21 05:25 Benzonatate 100 Mg Cap PO 100 mg Q8HR EKATERINA Administration Famotidine 10 mg 04/09/21 22:00 04/09/21 21:38 Famotidine 10 Mg Tab PO 10 mg BID EKATERINA Administration Heparin Sodium (Porcine) 5,000 unit 04/08/21 06:00 04/10/21 05:25 Heparin 5,000 Unit/1 Ml Vial SUB-Q 5,000 unit Q8HR EKATERINA Administration Hydromorphone HCl 0.5 mg 04/08/21 03:00 Hydromorphone 1 Mg/1 Ml Inj IV Q3H PRN Pain , Severe (7-10) Methylprednisolone 4 mg 04/08/21 10:00 04/09/21 09:58 Methylprednisolone 4 Mg Tab PO 4 mg DAILY EKATERINA Administration Nitroglycerin 0.4 mg 04/08/21 03:00 Nitroglycerin 0.4 Mg Tab Subl SL Q5M PRN Chest Pain Nystatin 1 applic 04/08/21 18:00 04/09/21 21:39 Nystatin Powder 15 Gm TP 1 applic BID EKATERINA Administration Ondansetron HCl 4 mg 04/08/21 03:00 Ondansetron 4 Mg/2 Ml Inj IV Q8H PRN Nausea And Vomiting Oxycodone/Acetaminophen 1 tab 04/08/21 03:00 Oxycodone /Acetaminophen 5-325mg Tab PO Q6H PRN Pain, Moderate (4-6) Sodium Chloride 10 ml 04/08/21 10:00 04/09/21 21:39 Sodium Chloride 0.9% 10 Ml Flush Syringe IV 10 ml BID EKATERINA Administration Sodium Chloride 10 ml 04/08/21 03:00 Sodium Chloride 0.9% 10 Ml Flush Syringe IV PRN PRN LINE FLUSH Sodium Polystyrene Sulfonate 15 gm 04/09/21 18:00 04/09/21 18:43 Sodium Polystyrene 15 Gm/60 Ml Oral Liqd PO 15 gm QDAY EKATERINA Administration Sodium Polystyrene Sulfonate 30 gm 04/10/21 07:57 Sodium Polystyrene 15 Gm/60 Ml Oral Liqd PO 04/10/21 12:00 ONCE NR Tramadol HCl 50 mg 04/08/21 03:00 Tramadol 50 Mg Tab PO Q6H PRN Pain, Moderate (4-6) Nutrition/Malnutrition Assess - Dietary Evaluation Nutrition/Malnutrition Findings: Nutrition Notes Start: 04/08/21 14:21 Freq: Status: Active Protocol: Document 04/08/21 14:21 GB (Rec: 04/08/21 14:37 GB [id number]) Nutrition Notes Need for Assessment generated from: tar chaser Initial or Follow up Assessment Current Diagnosis Hypertension Other Pertinent Diagnosis Dyspnea, respiratory distress, morbid obesity Current Diet Cardiac Labs/Tests 04/08: Na 134 low [id number] Creatinine 1.8 elevated [id number] Pertinent Medications azithromycin, fluid restriction Height 5 ft 4 in Weight 272.155 kg Fowler Body Weight (kg) 54.54 BMI 102.9 Intake Prior to Admission Good Weight change and time frame Pt reports no significant weight change. Weight Status Morbidly Obese Subjective/Other Information Pt states she does want to lose weight. This fiction writer, RD, discussed with pt to select a changeable habits to focus on and make the changes a few items at a time (examples if eat out 5 nights change to 3 nights/ 1 fruit a day change to 2 fruit a day). Encouraged pt to contact RD in Bariatric center for outpatient counseling. Percent of energy/protein needs met: Meals and snacks provided meet 100% of estimated energy needs. Burn Absent Trauma Absent GI Symptoms None Food Allergy No Usual Diet at Home regular Skin Integrity/Comment skin risk 13 Current % PO Good (75-100%) Minimum of two criteria No #1 Nutrition Diagnosis Overweight/obesity Comments: Discussed diet/life style changes using small goal successes to advancement, encouraged outpatient RD counseling at bariatric center Etiology dyspnea, respiratory distress As Evidenced by Signs and Symptoms BMI 103, IBW 498% Is patient on ventilator? No Is Patient Ambulatory and/or Out of Bed No REE-([facility]-confined to bed) 4093.764 Kcal/Kg value to use for calculation 10 Approximate Energy Requirements Using 2722 kcal/Kg Calculation Used for Recommendations Kcal/kg Additional Notes Protein 0.6 g/kg r/t BMI over 50: 163g Fluids: 1ml/kcal or per MD Nutrition Intervention Change Diet Order: continue with current diet Nutrition Support: n/a Add Supplement/Snack (indicate name/kcal n/a /protein ) Teaching Recipient Patient Learning Readiness Good Teaching Methods Discussion Response to Teaching Verbalize understanding Barriers to Learning Motivation,Emotional,Social Patient aware of follow up options Yes Actions To Overcome Barriers Collaboration with Other Providers Goal #1 Pt to contact and make appointment with outpatient RD in bariatric center Goal #2 weight to decrease -1% during LOS Follow-Up By: 04/13/21
[2021-04-10] MEDS: IPRATROPIUM/ALBUTEROL SULFATE 3 ML AMPUL.NEB IH SCH ×3 (09:36→19:10)
--- NOTE | 2021-04-10 09:48 | Ultrasound Report ---
ULTRASOUND RENAL INDICATION: GILBERTO. COMPARISON: No relevant prior imaging study available. FINDINGS: RIGHT KIDNEY: Not visualized secondary to body habitus and bowel gas LEFT KIDNEY: Not visualized secondary to body habitus and bowel gas Urinary Bladder: Not visualized secondary to body habitus and bowel gas. Free Fluid: None. Additional Findings: None. IMPRESSION 1. Suboptimal study. Bladder and kidneys not visualized sonographically.. Signer Name: Gareth Mtz MD Signed: 04/10/2021 9:44 AM Workstation Name: [id number]
[2021-04-10] MEDS ORDERED: LACTATED RINGERS 1,000 ML IV SCH (10:00)
[2021-04-10] MEDS: AZITHROMYCIN 250 MG TAB PO SCH (11:00)
[2021-04-10] MEDS: SODIUM POLYSTYRENE 15 GM/60 ML ORAL LIQD PO SCH (11:00)
[2021-04-10] MEDS: ASPIRIN EC 325 MG TAB PO SCH (11:01)
[2021-04-10] MEDS: FAMOTIDINE 10 MG TAB PO SCH ×2 (11:01→22:30)
[2021-04-10] MEDS: methylPREDNISolone 4 MG TAB PO SCH (11:01)
[2021-04-10] MEDS: NYSTATIN POWDER 15 GM TP SCH ×2 (11:01→22:31)
--- NOTE | 2021-04-10 12:40 | Progress Note ---
Assessment and Plan Patient is a 35 y/o female with a PMHX of morbid obesity, HTN, COPD NSTEMI type 2 Elevated BNP * Troponins minimally elevated 0.032->0.099->0.078. EKG shows sinus tach 116 with no acute ischemic changes. * BNP noted to be elevated. Hold Lasix in acute renal insufficiency. * Echo 08/08/2020- Technically very difficult and limited study, due to patient body habitus EF 55 to 60%, left and right atrium are normal in size right ventricular cavity is normal right ventricular global systolic function * Echo 04/08/2021-technically difficult study, contrast used for LV function, EF 55 to 60%, right ventricular systolic function is normal, aortic valve not well visualized Acute Renal insufficiency Hyponatremia * Patient cr 1.8 on admission. * Nephrology following HTN * Patient has been hypotensive. * Hold SUNG/ARB in setting of acute renal insufficiency and hypotension Obesity Hypoventilation Syndrome COPD * Patient currently on NC * Management per primary team Plan: Continue to hold SUNG/ARB, HCTZ, and Lasix in setting of renal insufficiency. BMP in AM. No ischemic eval due to patient's due patient's obesity. Patient seen in conjunction with Dr. Kelly who agrees with this plan of care. Will continue to follow - Patient Problems (1) Elevated troponin Current Visit: Yes Status: Acute (2) Acute renal insufficiency Current Visit: Yes Status: Acute (3) COPD (chronic obstructive pulmonary disease) Current Visit: Yes Status: Acute (4) Hypertension Current Visit: Yes Status: Acute (5) Morbid obesity Current Visit: Yes Status: Acute (6) Morbid obesity with BMI of 70 and over, adult Current Visit: No Status: Acute (7) Obesity hypoventilation syndrome Current Visit: No Status: Acute Subjective Date of service: 04/10/21 Principal diagnosis: Acute on chronic renal insufficiency Interval history: Patient lying in bed. Sinus 95 with no events on monitor Objective Vital Signs Temp Pulse Pulse Resp Resp BP Pulse Ox 04/10/21 09:38 98 04/10/21 08:00 91 H 18 04/10/21 07:49 91 04/10/21 00:00 95 H 04/09/21 23:24 91 04/09/21 21:57 85 18 98 04/09/21 19:26 98.8 F 95 H 21 114/71 74 L 04/09/21 17:05 91 H 89 04/09/21 17:00 98.5 F 95 H 20 109/65 66 L 04/09/21 16:50 18 04/09/21 16:00 95 H - Physical Examination General: No Apparent Distress HEENT: Positive: PERRL Neck: Positive: trachea midline Cardiac: Positive: Reg Rate and Rhythm Lungs: Positive: Decreased Breath Sounds Neuro: Positive: Grossly Intact Abdomen: Positive: Soft Skin: Negative: Rash, Suspicious Lesions, Ulceration Extremities: Present: upper extr. pulses, edema - Labs and Meds Comprehensive Metabolic Panel 04/09/21 04/10/21 Range/Units 15:46 02:20 Sodium 128 L 128 L (137-145) mmol/L Potassium 5.5 H 5.2 H (3.6-5.0) mmol/L Chloride 88.1 L 88.6 L (98-107) mmol/L Carbon Dioxide 26 25 (22-30) mmol/L BUN 33 H 39 H (7-17) mg/dL Creatinine 2.7 H 3.1 H (0.6-1.2) mg/dL Glucose 172 H 171 H (65-100) mg/dL Calcium 7.3 L 7.2 L (8.4-10.2) mg/dL - Imaging and Cardiology EKG: report reviewed, image reviewed Echo: report reviewed - Telemetry EKG Rhythm: Sinus Rhythm - EKG Sinus rhythms and dysrhythmias: sinus rhythm Repolarization changes or abnormalities: nonspecific abnormality, ST segment, and/or T wave
--- NOTE | 2021-04-10 15:20 | Progress Note ---
Assessment and Plan Assessment Acute kidney injury, unknown baseline. Renal ultrasound notes poor visualization due to body habitus. Hyponatremia Hyperkalemia Hypotension Hypocalcemia Morbid obesity Recommendations Suspect intravascular volume depletion - Ordered LR x 1 L, assess reponse S/p Kayexalate Ordered cortisol - pending Ordered ionized calcium - pending Maintain MAP more than 65 Hold SUNG/ARB at this time Hold diuretics given soft pressures Renally dose medications Avoid nephrotoxins Renal diet Subjective Date of service: 04/10/21 Principal diagnosis: Acute on chronic renal insufficiency Interval history: Patient was seen for her renal issues Nursing, interdisciplinary and consult notes were reviewed Vitals, input and output, medications and labs were reviewed On oxygen Objective - Exam Narrative Exam: General: Morbid obesity HEENT: Oral mucosa moist Neck: Supple, no JVD Chest: Clear to auscultation bilaterally Heart: RRR, S1 and S2, no pericardial rub Abdomen: Soft, nontender, no renal bruit Extremity: No peripheral cyanosis, edema Neurological: Awake and alert Dermatology: Unable to assess Psych: Calm and cooperative Musculoskeletal: No joint effusion - Vital Signs Vital signs: Vital Signs - 12hr 04/10/21 04/10/21 04/10/21 07:49 08:00 09:38 Pulse Rate [ 91 H Anterior Bilateral Throughout] Respiratory 18 Rate [Anterior Bilateral Throughout] O2 Sat by Pulse 91 98 Oximetry 04/10/21 14:00 Pulse Rate [ 89 Anterior Bilateral Throughout] Respiratory 18 Rate [Anterior Bilateral Throughout] O2 Sat by Pulse Oximetry - Lab 04/09/21 04:52 04/10/21 02:20 Most recent lab results Calcium 7.2 mg/dL (8.4-10.2) L 04/10/21 02:20 Urine Sodium 16 mmol/L 04/09/21 18:46 Medications & Allergies - Medications Allergies/Adverse Reactions: Allergies No Known Allergies Allergy (Unverified 01/27/17 11:17) Home Medications: Home Medications Medication Instructions Recorded Confirmed Last Taken Type Acetaminophen [Acetaminophen TAB] 325 mg PO Q4H PRN #30 tablet 06/30/17 08/08/20 Unknown Rx ALBUTEROL NEB's [Proventil 0.083% 2.5 mg IH Q3HRT PRN #30 day 08/10/20 Unknown Rx NEBS] Albuterol Mdi (or & Nicu Only) 2 puff IH QID PRN #1 inhalation 08/10/20 Unknown Rx [ProAir HFA Inhaler] Azithromycin [Zithromax Z-BIN] 0 mg PO DAILY #1 tab 08/10/20 Unknown Rx Benzonatate [Tessalon Perles] 100 mg PO Q8HR #15 capsule 08/10/20 Unknown Rx Famotidine [Pepcid] 20 mg PO BID #14 tablet 08/10/20 Unknown Rx Ipratropium/Albuterol Sulfate 1 ampul IH TIDRT #30 day 08/10/20 Unknown Rx [DUONEB *Not for PRN Use*] hydroCHLOROthiazide [HCTZ] 25 mg PO QDAY tablet 08/10/20 Unknown Rx hydroCHLOROthiazide [HCTZ] 25 mg PO QDAY #30 tablet 08/10/20 Unknown Rx methylPREDNISolone [Medrol 4MG 4 mg PO DAILY #1 tab.ds.pk 08/10/20 Unknown Rx DOSEPAK (21 tabs)] Active Medications: Generic Name Dose Route Start Last Admin Trade Name Freq PRN Reason Stop Dose Admin Acetaminophen 650 mg 04/08/21 03:00 Acetaminophen 325 Mg Tab PO Q4H PRN Pain MILD(1-3)/Fever >100.5/BROWN Albuterol 2.5 mg 04/08/21 03:00 Albuterol 2.5 Mg/3 Ml Nebu IH Q4HRT PRN Shortness Of Breath Albuterol/Ipratropium 1 ampul 04/08/21 08:00 04/10/21 14:15 Ipratropium/Albuterol Sulfate 3 Ml Ampul.Neb IH 1 ampul TIDRT EKATERINA Administration Aspirin 325 mg 04/09/21 10:00 04/10/21 11:01 Aspirin Ec 325 Mg Tab PO 325 mg QDAY EKATERINA Administration Atorvastatin Calcium 40 mg 04/08/21 22:00 04/09/21 21:38 Atorvastatin 40 Mg Tab PO 40 mg QHS EKATERINA Administration Azithromycin 500 mg 04/09/21 10:00 04/10/21 11:00 Azithromycin 250 Mg Tab PO 04/13/21 10:01 500 mg DAILY EKATERINA Administration Protocol Benzonatate 100 mg 04/08/21 06:00 04/10/21 05:25 Benzonatate 100 Mg Cap PO 100 mg Q8HR EKATERINA Administration Famotidine 10 mg 04/09/21 22:00 04/10/21 11:01 Famotidine 10 Mg Tab PO 10 mg BID EKATERINA Administration Heparin Sodium (Porcine) 5,000 unit 04/08/21 06:00 04/10/21 05:25 Heparin 5,000 Unit/1 Ml Vial SUB-Q 5,000 unit Q8HR EKATERINA Administration Hydromorphone HCl 0.5 mg 04/08/21 03:00 Hydromorphone 1 Mg/1 Ml Inj IV Q3H PRN Pain , Severe (7-10) Lactated Ringer's 1,000 mls @ 100 mls/hr 04/10/21 10:00 04/10/21 11:02 Lactated Ringers IV 04/10/21 19:59 100 mls/hr DIRECT EKATERINA Administration Methylprednisolone 4 mg 04/08/21 10:00 04/10/21 11:01 Methylprednisolone 4 Mg Tab PO 4 mg DAILY EKATERINA Administration Nitroglycerin 0.4 mg 04/08/21 03:00 Nitroglycerin 0.4 Mg Tab Subl SL Q5M PRN Chest Pain Nystatin 1 applic 04/08/21 18:00 04/10/21 11:01 Nystatin Powder 15 Gm TP Not Given BID EKATERINA Ondansetron HCl 4 mg 04/08/21 03:00 Ondansetron 4 Mg/2 Ml Inj IV Q8H PRN Nausea And Vomiting Oxycodone/Acetaminophen 1 tab 04/08/21 03:00 Oxycodone /Acetaminophen 5-325mg Tab PO Q6H PRN Pain, Moderate (4-6) Sodium Chloride 10 ml 04/08/21 10:00 04/10/21 11:01 Sodium Chloride 0.9% 10 Ml Flush Syringe IV 10 ml BID EKATERINA Administration Sodium Chloride 10 ml 04/08/21 03:00 Sodium Chloride 0.9% 10 Ml Flush Syringe IV PRN PRN LINE FLUSH Tramadol HCl 50 mg 04/08/21 03:00 Tramadol 50 Mg Tab PO Q6H PRN Pain, Moderate (4-6)
[2021-04-10] MEDS: oxyCODONE /ACETAMINOPHEN 5-325MG TAB PO PRN (18:16)
[2021-04-10 20:11] LABS: Calcium 6.9 mg/dL (8.4-10.2)
[2021-04-11] MEDS: HEPARIN 5,000 UNIT/1 ML VIAL SUB-Q SCH ×3 (05:15→22:37)
[2021-04-11] MEDS: BENZONATATE 100 MG CAP PO SCH ×3 (05:15→22:38)
[2021-04-11 06:49] LABS: Calcium 7.2 mg/dL (8.4-10.2)
[2021-04-11] MEDS: methylPREDNISolone 4 MG TAB PO SCH (09:47)
[2021-04-11] MEDS: FAMOTIDINE 10 MG TAB PO SCH ×2 (09:47→22:38)
[2021-04-11] MEDS: NYSTATIN POWDER 15 GM TP SCH ×2 (09:48→22:45)
[2021-04-11] MEDS: ASPIRIN EC 325 MG TAB PO SCH (09:48)
[2021-04-11] MEDS: AZITHROMYCIN 250 MG TAB PO SCH (09:48)
[2021-04-11] MEDS: SODIUM POLYSTYRENE 15 GM/60 ML ORAL LIQD PO SCH (11:07)
[2021-04-11] MEDS ORDERED: SODIUM POLYSTYRENE 15 GM/60 ML ORAL LIQD PO ONE (11:23)
--- NOTE | 2021-04-11 11:28 | Progress Note ---
Assessment and Plan Assessment and plan: - Patient Problems (1) Non-ST elevation LA (NSTEMI) Current Visit: Yes Status: Acute Plan to address problem: Admit the patient to the medical telemetry. Aspirin 325 mg p.o. daily. Lipitor 40 mg p.o. daily. Nitroglycerin as needed. We do the serial cardiac enzyme. We also consult cardiology for evaluation and order echocardiogram. (2) Acute exacerbation of CHF (congestive heart failure) Current Visit: Yes Status: Acute Plan to address problem: Fluid restriction. Maintain input output. Lasix 40 mg IV every 12 hours. Oxygen via nasal cannula 3 L/min. DuoNeb by nebulizer every 4 hours. Echocardiogram. Cardiology consult (3) Hypertension Current Visit: Yes Status: Acute Plan to address problem: We will continue the home medication. Hydralazine 10 mg IV every 6 hours as needed. We will monitor the blood pressure closely (4) COPD (chronic obstructive pulmonary disease) Current Visit: Yes Status: Acute Plan to address problem: Oxygen by nasal cannula 3 L/min. DuoNeb via nebulizer every 4 hours. Albuterol via nebulizer every 4 hours as needed. (5) Morbid obesity Current Visit: Yes Status: Acute Plan to address problem: We counseled regarding weight reduction. Outpatient follow-up with bariatric surgeon (6) Hyperglycemia Current Visit: Yes Status: Acute Plan to address problem: We will give 1 ampoule of D50. We will put the patient on cardiac diet. We will monitor the blood glucose closely (7) DVT prophylaxis Current Visit: No Status: Acute Plan to address problem: Heparin 5000 units subcu every 8 hours for DVT prophylaxis. Pepcid 20 mg p.o. twice daily for GI prophylaxis. Patient is a full code 04/09 -Patient is on heparin drip for non-STEMI, cardiology is following. -Patient is off Lasix and SUNG inhibitors because of GILBERTO. -Kidney function is worsening overnight and I put a consult for nephrology. -Patient is hypotensive and blood pressure from this morning was 101/41. We will continue to monitor. And if it is dropping we we will give him fluid. -Echo was done and EF of 50 to 55%. Diastolic dysfunction is indeterminate. Management per cardiology -Patient has COPD continues on dexamethasone, nebulizer treatment as needed. -Patient has hyponatremia and hyperkalemia. I give the patient Kayexalate. Monitor electrolytes. Will follow nephrology for additional recommendation. 04/10 -Renal function is worsening, nephrology is following -Blood pressure is better today -Hyperkalemia; I added Kayexalate -Morbid obesity 04/11 -Slight improvement in creatinine. Hyponatremia worsened. Nephrology is following and put the patient back on Lasix. -Blood pressure is better today -Potassium this morning was 5.8, I ordered 60 g of Kayexalate -Morbidly obese -Obesity hypoventilation syndrome History Interval history: Patient was seen and evaluated this morning Patient was on 6L of oxygen No chest pain or shortness of breath She was complaining generalized weakness Hospitalist Physical - Physical exam Narrative exam: Not in cardiopulmonary distress. The patient is morbidly obese. Vital signs as documented. Head exam is unremarkable. No scleral icterus . Neck is without jugular venous distension, thyromegaly, or carotid bruits. Lungs are clear to auscultation. Cardiac exam reveals regular rate and Rhythm. Abdominal exam reveals normal bowel sounds, nontender, no organomegaly. Extremities are nonedematous and both femoral and pedal pulses are normal. CRATE LINER: Alert and oriented 3. No focal weakness. - Constitutional Vitals: Temp Pulse Resp BP Pulse Ox 97.6 F 97 H 22 140/70 96 04/11/21 08:24 04/11/21 08:24 04/11/21 08:24 04/11/21 08:24 04/11/21 08:24 General appearance: Present: no acute distress HEART Score - HEART Score Troponin: Troponin T 0.078 ng/mL (0.00-0.029) H D 04/08/21 13:03 Results - Labs CBC & Chem 7: 04/09/21 04:52 04/11/21 05:48 Labs: Laboratory Last Values WBC 20.9 K/mm3 (4.5-11.0) H 04/09/21 04:52 RBC 4.09 M/mm3 (3.65-5.03) 04/09/21 04:52 Hgb 8.5 gm/dl (10.1-14.3) L 04/09/21 04:52 Hct 30.0 % (30.3-42.9) L 04/09/21 04:52 MCV 73 fl (79-97) L 04/09/21 04:52 MCH 21 pg (28-32) L 04/09/21 04:52 MCHC 28 % (30-34) L 04/09/21 04:52 RDW 23.9 % (13.2-15.2) H 04/09/21 04:52 Plt Count 339 K/mm3 (140-440) 04/09/21 04:52 Add Manual Diff Complete 04/09/21 04:52 Total Counted 100 04/09/21 04:52 Seg Neuts % (Manual) 77.0 % (40.0-70.0) H 04/09/21 04:52 Band Neutrophils % 13.0 % 04/09/21 04:52 Lymphocytes % (Manual) 1.0 % (13.4-35.0) L 04/09/21 04:52 Reactive Lymphs % (Man) 6.0 % 04/09/21 04:52 Monocytes % (Manual) 2.0 % (0.0-7.3) 04/09/21 04:52 Metamyelocytes % 1.0 % 04/09/21 04:52 Myelocytes % 2.0 % 04/08/21 04:03 Nucleated RBC % 1.0 % (0.0-0.9) H 04/09/21 04:52 Seg Neutrophils # Man 16.1 K/mm3 (1.8-7.7) H 04/09/21 04:52 Band Neutrophils # 2.7 K/mm3 04/09/21 04:52 Lymphocytes # (Manual) 0.2 K/mm3 (1.2-5.4) L 04/09/21 04:52 Abs React Lymphs (Man) 1.3 K/mm3 04/09/21 04:52 Monocytes # (Manual) 0.4 K/mm3 (0.0-0.8) 04/09/21 04:52 Eosinophils # (Manual) 0.0 K/mm3 (0.0-0.4) 04/09/21 04:52 Basophils # (Manual) 0.0 K/mm3 (0.0-0.1) 04/09/21 04:52 Metamyelocytes # 0.2 K/mm3 04/09/21 04:52 Myelocytes # 0.0 K/mm3 04/09/21 04:52 Promyelocytes # 0.0 K/mm3 04/09/21 04:52 Blast Cells # 0.0 K/mm3 04/09/21 04:52 WBC Morphology Not Reportable 04/09/21 04:52 Hypersegmented Neuts Not Reportable 04/09/21 04:52 Hyposegmented Neuts Not Reportable 04/09/21 04:52 Hypogranular Neuts Not Reportable 04/09/21 04:52 Smudge Cells Not Reportable 04/09/21 04:52 Toxic Granulation 2+ 04/09/21 04:52 Toxic Vacuolation 2+ 04/09/21 04:52 Dohle Bodies Not Reportable 04/09/21 04:52 Pelger-Huet Anomaly Not Reportable 04/09/21 04:52 Ana Cristina Rods Not Reportable 04/09/21 04:52 Platelet Estimate Consistent w auto 04/09/21 04:52 Clumped Platelets 1+ 04/09/21 04:52 Plt Clumps, EDTA Not Reportable 04/09/21 04:52 Large Platelets 2+ 04/09/21 04:52 Giant Platelets Not Reportable 04/09/21 04:52 Platelet Satelliting Rare 04/09/21 04:52 Plt Morphology Comment Not Reportable 04/09/21 04:52 RBC Morphology Not Reportable 04/09/21 04:52 Dimorphic RBCs Not Reportable 04/09/21 04:52 Polychromasia Not Reportable 04/09/21 04:52 Hypochromasia 2+ 04/09/21 04:52 Poikilocytosis Not Reportable 04/09/21 04:52 Anisocytosis 2+ 04/09/21 04:52 Microcytosis Not Reportable 04/09/21 04:52 Macrocytosis Not Reportable 04/09/21 04:52 Spherocytes Not Reportable 04/09/21 04:52 Pappenheimer Bodies Not Reportable 04/09/21 04:52 Sickle Cells Not Reportable 04/09/21 04:52 Target Cells 1+ 04/09/21 04:52 Tear Drop Cells Not Reportable 04/09/21 04:52 Ovalocytes Not Reportable 04/09/21 04:52 Helmet Cells Not Reportable 04/09/21 04:52 [place] Bodies Not Reportable 04/09/21 04:52 [place] Rings Not Reportable 04/09/21 04:52 Sara Cells Not Reportable 04/09/21 04:52 Bite Cells Not Reportable 04/09/21 04:52 Crenated Cell Not Reportable 04/09/21 04:52 Elliptocytes Not Reportable 04/09/21 04:52 Acanthocytes (Spur) Not Reportable 04/09/21 04:52 Rouleaux Not Reportable 04/09/21 04:52 Hemoglobin C Crystals Not Reportable 04/09/21 04:52 Schistocytes Not Reportable 04/09/21 04:52 Malaria parasites Not Reportable 04/09/21 04:52 Tyshawn Bodies Not Reportable 04/09/21 04:52 Hem Pathologist Commnt No 04/09/21 04:52 Sodium 124 mmol/L (137-145) L 04/11/21 05:48 Potassium 5.8 mmol/L (3.6-5.0) H D 04/11/21 05:48 Chloride 89.4 mmol/L (98-107) L 04/11/21 05:48 Carbon Dioxide 22 mmol/L (22-30) 04/11/21 05:48 Anion Gap 18 mmol/L 04/11/21 05:48 BUN 53 mg/dL (7-17) H 04/11/21 05:48 Creatinine 2.8 mg/dL (0.6-1.2) H 04/11/21 05:48 Estimated GFR 24 ml/min 04/11/21 05:48 BUN/Creatinine Ratio 19 % 04/11/21 05:48 Glucose 150 mg/dL (65-100) H 04/11/21 05:48 POC Glucose 152 mg/dL (70-105) H 04/11/21 08:48 Osmolality 301 Mosm/kg 04/09/21 23:15 Calcium 7.2 mg/dL (8.4-10.2) L 04/11/21 05:48 Total Creatine Kinase 1712 units/L (30-135) H 04/10/21 10:04 Troponin T 0.078 ng/mL (0.00-0.029) H D 04/08/21 13:03 NT-Pro-B Natriuret Pep 7573 pg/mL (0-450) H 04/07/21 22:04 Triglycerides 105 mg/dL (2-149) 04/07/21 22:04 Cholesterol 85 mg/dL (50-199) 04/07/21 22:04 LDL Cholesterol Direct 47 mg/dL (50-130) L 04/07/21 22:04 HDL Cholesterol 25 mg/dL (40-59) L 04/07/21 22:04 Cholesterol/HDL Ratio 3.40 % 04/07/21 22:04 Urine Osmolality 157 Mosm/kg 04/09/21 18:46 Urine Sodium 16 mmol/L 04/09/21 18:46 Zambrano/IV: Voiding Method External Female Catheter Active Medications - Current Medications Current Medications: Generic Name Dose Route Start Last Admin Trade Name Freq PRN Reason Stop Dose Admin Acetaminophen 650 mg 04/08/21 03:00 Acetaminophen 325 Mg Tab PO Q4H PRN Pain MILD(1-3)/Fever >100.5/BROWN Albuterol 2.5 mg 04/08/21 03:00 Albuterol 2.5 Mg/3 Ml Nebu IH Q4HRT PRN Shortness Of Breath Albuterol/Ipratropium 1 ampul 04/08/21 08:00 04/10/21 19:10 Ipratropium/Albuterol Sulfate 3 Ml Ampul.Neb IH 1 ampul TIDRT EKATERINA Administration Aspirin 325 mg 04/09/21 10:00 04/11/21 09:48 Aspirin Ec 325 Mg Tab PO 325 mg QDAY EKATERINA Administration Atorvastatin Calcium 40 mg 04/08/21 22:00 04/10/21 22:30 Atorvastatin 40 Mg Tab PO 40 mg QHS EKATERINA Administration Azithromycin 500 mg 04/09/21 10:00 04/11/21 09:48 Azithromycin 250 Mg Tab PO 04/13/21 10:01 500 mg DAILY EKATERINA Administration Protocol Benzonatate 100 mg 04/08/21 06:00 04/11/21 05:15 Benzonatate 100 Mg Cap PO 100 mg Q8HR EKATERINA Administration Famotidine 10 mg 04/09/21 22:00 04/11/21 09:47 Famotidine 10 Mg Tab PO 10 mg BID EKATERINA Administration Furosemide 60 mg 04/11/21 18:00 Furosemide 40 Mg/4 Ml Inj IV 0600,1800 EKATERINA Heparin Sodium (Porcine) 5,000 unit 04/08/21 06:00 04/11/21 05:15 Heparin 5,000 Unit/1 Ml Vial SUB-Q 5,000 unit Q8HR EKATERINA Administration Hydromorphone HCl 0.5 mg 04/08/21 03:00 Hydromorphone 1 Mg/1 Ml Inj IV Q3H PRN Pain , Severe (7-10) Methylprednisolone 4 mg 04/08/21 10:00 04/11/21 09:47 Methylprednisolone 4 Mg Tab PO 4 mg DAILY EKATERINA Administration Nitroglycerin 0.4 mg 04/08/21 03:00 Nitroglycerin 0.4 Mg Tab Subl SL Q5M PRN Chest Pain Nystatin 1 applic 04/08/21 18:00 04/11/21 09:48 Nystatin Powder 15 Gm TP 1 applic BID EKATERINA Administration Ondansetron HCl 4 mg 04/08/21 03:00 Ondansetron 4 Mg/2 Ml Inj IV Q8H PRN Nausea And Vomiting Oxycodone/Acetaminophen 1 tab 04/08/21 03:00 04/10/21 18:16 Oxycodone /Acetaminophen 5-325mg Tab PO 1 tab Q6H PRN Administration Pain, Moderate (4-6) Sodium Chloride 10 ml 04/08/21 10:00 04/11/21 09:48 Sodium Chloride 0.9% 10 Ml Flush Syringe IV 10 ml BID EKATERINA Administration Sodium Chloride 10 ml 04/08/21 03:00 Sodium Chloride 0.9% 10 Ml Flush Syringe IV PRN PRN LINE FLUSH Sodium Polystyrene Sulfonate 15 gm 04/11/21 11:00 04/11/21 11:07 Sodium Polystyrene 15 Gm/60 Ml Oral Liqd PO 15 gm QDAY EKATERINA Administration Sodium Polystyrene Sulfonate 60 gm 04/11/21 11:23 Sodium Polystyrene 15 Gm/60 Ml Oral Liqd PO 04/11/21 11:24 ONCE ONE Tramadol HCl 50 mg 04/08/21 03:00 Tramadol 50 Mg Tab PO Q6H PRN Pain, Moderate (4-6) Nutrition/Malnutrition Assess - Dietary Evaluation Nutrition/Malnutrition Findings: Nutrition Notes Start: 04/08/21 14:21 Freq: Status: Active Protocol: Document 04/08/21 14:21 GB (Rec: 04/08/21 14:37 GB [id number]) Nutrition Notes Need for Assessment generated from: manager of customer billing Initial or Follow up Assessment Current Diagnosis Hypertension Other Pertinent Diagnosis Dyspnea, respiratory distress, morbid obesity Current Diet Cardiac Labs/Tests 04/08: Na 134 low [id number] Creatinine 1.8 elevated [id number] Pertinent Medications azithromycin, fluid restriction Height 5 ft 4 in Weight 272.155 kg [place] Body Weight (kg) 54.54 BMI 102.9 Intake Prior to Admission Good Weight change and time frame Pt reports no significant weight change. Weight Status Morbidly Obese Subjective/Other Information Pt states she does want to lose weight. This data analyst report writer, MANJEET, discussed with pt to select a changeable habits to focus on and make the changes a few items at a time (examples if eat out 5 nights change to 3 nights/ 1 fruit a day change to 2 fruit a day). Encouraged pt to contact RD in Bariatric center for outpatient counseling. Percent of energy/protein needs met: Meals and snacks provided meet 100% of estimated energy needs. Burn Absent Trauma Absent GI Symptoms None Food Allergy No Usual Diet at Home regular Skin Integrity/Comment skin risk 13 Current % PO Good (75-100%) Minimum of two criteria No #1 Nutrition Diagnosis Overweight/obesity Comments: Discussed diet/life style changes using small goal successes to advancement, encouraged outpatient RD counseling at bariatric center Etiology dyspnea, respiratory distress As Evidenced by Signs and Symptoms BMI 103, IBW 498% Is patient on ventilator? No Is Patient Ambulatory and/or Out of Bed No REE-([facility]-confined to bed) 4093.764 Kcal/Kg value to use for calculation 10 Approximate Energy Requirements Using 2722 kcal/Kg Calculation Used for Recommendations Kcal/kg Additional Notes Protein 0.6 g/kg r/t BMI over 50: 163g Fluids: 1ml/kcal or per MD Nutrition Intervention Change Diet Order: continue with current diet Nutrition Support: n/a Add Supplement/Snack (indicate name/kcal n/a /protein ) Teaching Recipient Patient Learning Readiness Good Teaching Methods Discussion Response to Teaching Verbalize understanding Barriers to Learning Motivation,Emotional,Social Patient aware of follow up options Yes Actions To Overcome Barriers Collaboration with Other Providers Goal #1 Pt to contact and make appointment with outpatient RD in bariatric center Goal #2 weight to decrease -1% during LOS Follow-Up By: 04/13/21
[2021-04-11] MEDS: IPRATROPIUM/ALBUTEROL SULFATE 3 ML AMPUL.NEB IH SCH ×2 (12:39→22:12)
[2021-04-11] MEDS: SODIUM CHLORIDE 1 GM TAB PO SCH ×2 (14:03→22:38)
[2021-04-11] MEDS: FUROSEMIDE 40 MG/4 ML INJ IV SCH (18:09)
--- NOTE | 2021-04-11 18:31 | Progress Note ---
Assessment and Plan Assessment Acute kidney injury, unknown baseline. Renal ultrasound notes poor visualization due to body habitus. Hyponatremia Hyperkalemia Hypotension Hypocalcemia Morbid obesity Recommendations Na trended down following hydration, start sodium tabs and diuresis, recheck labs this evening S/p Kayexalate Ordered cortisol - pending Ordered ionized calcium - pending Maintain MAP more than 65 Hold SUNG/ARB at this time Hold diuretics given soft pressures Renally dose medications Avoid nephrotoxins Renal diet Subjective Date of service: 04/11/21 Principal diagnosis: Acute on chronic renal insufficiency Interval history: Patient was seen for her renal issues Nursing, interdisciplinary and consult notes were reviewed Vitals, input and output, medications and labs were reviewed Remains on NC Objective - Exam Narrative Exam: General: Morbid obesity HEENT: Oral mucosa moist Neck: Supple, no JVD Chest: Clear to auscultation bilaterally Heart: RRR, S1 and S2, no pericardial rub Abdomen: Soft, nontender, no renal bruit Extremity: No peripheral cyanosis, edema Neurological: Awake and alert Dermatology: Unable to assess Psych: Calm and cooperative Musculoskeletal: No joint effusion - Vital Signs Vital signs: Vital Signs - 12hr 04/11/21 04/11/21 04/11/21 08:24 11:55 12:00 Temperature 97.6 F 98.3 F Pulse Rate 97 H 96 H Respiratory 22 22 Rate Blood Pressure 140/70 137/62 O2 Sat by Pulse 96 99 91 Oximetry 04/11/21 16:18 Temperature 98.9 F Pulse Rate 101 H Respiratory 22 Rate Blood Pressure 137/76 O2 Sat by Pulse 95 Oximetry - Lab 04/09/21 04:52 04/11/21 05:48 Most recent lab results Calcium 7.2 mg/dL (8.4-10.2) L 04/11/21 05:48 Urine Sodium 16 mmol/L 04/09/21 18:46 Medications & Allergies - Medications Allergies/Adverse Reactions: Allergies No Known Allergies Allergy (Unverified 01/27/17 11:17) Home Medications: Home Medications Medication Instructions Recorded Confirmed Last Taken Type Acetaminophen [Acetaminophen TAB] 325 mg PO Q4H PRN #30 tablet 06/30/17 08/08/20 Unknown Rx ALBUTEROL NEB's [Proventil 0.083% 2.5 mg IH Q3HRT PRN #30 day 08/10/20 Unknown Rx NEBS] Albuterol Mdi (or & Nicu Only) 2 puff IH QID PRN #1 inhalation 08/10/20 Unknown Rx [ProAir HFA Inhaler] Azithromycin [Zithromax Z-BIN] 0 mg PO DAILY #1 tab 08/10/20 Unknown Rx Benzonatate [Tessalon Perles] 100 mg PO Q8HR #15 capsule 08/10/20 Unknown Rx Famotidine [Pepcid] 20 mg PO BID #14 tablet 08/10/20 Unknown Rx Ipratropium/Albuterol Sulfate 1 ampul IH TIDRT #30 day 08/10/20 Unknown Rx [DUONEB *Not for PRN Use*] hydroCHLOROthiazide [HCTZ] 25 mg PO QDAY tablet 08/10/20 Unknown Rx hydroCHLOROthiazide [HCTZ] 25 mg PO QDAY #30 tablet 08/10/20 Unknown Rx methylPREDNISolone [Medrol 4MG 4 mg PO DAILY #1 tab.ds.pk 08/10/20 Unknown Rx DOSEPAK (21 tabs)] Active Medications: Generic Name Dose Route Start Last Admin Trade Name Freq PRN Reason Stop Dose Admin Acetaminophen 650 mg 04/08/21 03:00 Acetaminophen 325 Mg Tab PO Q4H PRN Pain MILD(1-3)/Fever >100.5/BROWN Albuterol 2.5 mg 04/08/21 03:00 Albuterol 2.5 Mg/3 Ml Nebu IH Q4HRT PRN Shortness Of Breath Albuterol/Ipratropium 1 ampul 04/08/21 08:00 04/11/21 12:39 Ipratropium/Albuterol Sulfate 3 Ml Ampul.Neb IH 1 ampul TIDRT EKATERINA Administration Aspirin 325 mg 04/09/21 10:00 04/11/21 09:48 Aspirin Ec 325 Mg Tab PO 325 mg QDAY EKATERINA Administration Atorvastatin Calcium 40 mg 04/08/21 22:00 04/10/21 22:30 Atorvastatin 40 Mg Tab PO 40 mg QHS EKATERINA Administration Azithromycin 500 mg 04/09/21 10:00 04/11/21 09:48 Azithromycin 250 Mg Tab PO 04/13/21 10:01 500 mg DAILY EKATERINA Administration Protocol Benzonatate 100 mg 04/08/21 06:00 04/11/21 14:03 Benzonatate 100 Mg Cap PO 100 mg Q8HR EKATERINA Administration Famotidine 10 mg 09/23/21 22:00 04/11/21 09:47 Famotidine 10 Mg Tab PO 10 mg BID EKATERINA Administration Furosemide 60 mg 04/11/21 18:00 04/11/21 18:09 Furosemide 40 Mg/4 Ml Inj IV 60 mg 0600,1800 EKATERINA Administration Heparin Sodium (Porcine) 5,000 unit 04/08/21 06:00 04/11/21 14:04 Heparin 5,000 Unit/1 Ml Vial SUB-Q Not Given Q8HR EKATERINA Hydromorphone HCl 0.5 mg 04/08/21 03:00 Hydromorphone 1 Mg/1 Ml Inj IV Q3H PRN Pain , Severe (7-10) Methylprednisolone 4 mg 04/08/21 10:00 04/11/21 09:47 Methylprednisolone 4 Mg Tab PO 4 mg DAILY EKATERINA Administration Nitroglycerin 0.4 mg 04/08/21 03:00 Nitroglycerin 0.4 Mg Tab Subl SL Q5M PRN Chest Pain Nystatin 1 applic 04/08/21 18:00 04/11/21 09:48 Nystatin Powder 15 Gm TP 1 applic BID EKATERINA Administration Ondansetron HCl 4 mg 04/08/21 03:00 Ondansetron 4 Mg/2 Ml Inj IV Q8H PRN Nausea And Vomiting Oxycodone/Acetaminophen 1 tab 04/08/21 03:00 04/10/21 18:16 Oxycodone /Acetaminophen 5-325mg Tab PO 1 tab Q6H PRN Administration Pain, Moderate (4-6) Sodium Chloride 10 ml 04/08/21 10:00 04/11/21 09:48 Sodium Chloride 0.9% 10 Ml Flush Syringe IV 10 ml BID EKATERINA Administration Sodium Chloride 10 ml 04/08/21 03:00 Sodium Chloride 0.9% 10 Ml Flush Syringe IV PRN PRN LINE FLUSH Sodium Chloride 1 gm 04/11/21 14:00 04/11/21 14:03 Sodium Chloride 1 Gm Tab PO 1 gm TID EKATERINA Administration Sodium Polystyrene Sulfonate 15 gm 04/11/21 11:00 04/11/21 11:07 Sodium Polystyrene 15 Gm/60 Ml Oral Liqd PO 15 gm QDAY EKATERINA Administration Tramadol HCl 50 mg 04/08/21 03:00 Tramadol 50 Mg Tab PO Q6H PRN Pain, Moderate (4-6)
[2021-04-11 19:58] LABS: Calcium 7.1 mg/dL (8.4-10.2)
[2021-04-12 06:12] LABS: Calcium 7.2 mg/dL (8.4-10.2)
[2021-04-12] MEDS: FUROSEMIDE 40 MG/4 ML INJ IV SCH ×2 (06:30→17:06)
[2021-04-12] MEDS: BENZONATATE 100 MG CAP PO SCH ×3 (06:30→21:05)
[2021-04-12] MEDS: HEPARIN 5,000 UNIT/1 ML VIAL SUB-Q SCH ×3 (06:31→21:04)
--- NOTE | 2021-04-12 09:31 | Progress Note ---
Assessment and Plan Assessment and plan: - Patient Problems (1) Non-ST elevation [place] (NSTEMI) Current Visit: Yes Status: Acute Plan to address problem: Admit the patient to the medical telemetry. Aspirin 325 mg p.o. daily. Lipitor 40 mg p.o. daily. Nitroglycerin as needed. We do the serial cardiac enzyme. We also consult cardiology for evaluation and order echocardiogram. (2) Acute exacerbation of CHF (congestive heart failure) Current Visit: Yes Status: Acute Plan to address problem: Fluid restriction. Maintain input output. Lasix 40 mg IV every 12 hours. Oxygen via nasal cannula 3 L/min. DuoNeb by nebulizer every 4 hours. Echocardiogram. Cardiology consult (3) Hypertension Current Visit: Yes Status: Acute Plan to address problem: We will continue the home medication. Hydralazine 10 mg IV every 6 hours as needed. We will monitor the blood pressure closely (4) COPD (chronic obstructive pulmonary disease) Current Visit: Yes Status: Acute Plan to address problem: Oxygen by nasal cannula 3 L/min. DuoNeb via nebulizer every 4 hours. Albuterol via nebulizer every 4 hours as needed. (5) Morbid obesity Current Visit: Yes Status: Acute Plan to address problem: We counseled regarding weight reduction. Outpatient follow-up with bariatric surgeon (6) Hyperglycemia Current Visit: Yes Status: Acute Plan to address problem: We will give 1 ampoule of D50. We will put the patient on cardiac diet. We will monitor the blood glucose closely (7) DVT prophylaxis Current Visit: No Status: Acute Plan to address problem: Heparin 5000 units subcu every 8 hours for DVT prophylaxis. Pepcid 20 mg p.o. twice daily for GI prophylaxis. Patient is a full code 04/09 -Patient is on heparin drip for non-STEMI, cardiology is following. -Patient is off Lasix and SUNG inhibitors because of GILBERTO. -Kidney function is worsening overnight and I put a consult for nephrology. -Patient is hypotensive and blood pressure from this morning was 101/41. We will continue to monitor. And if it is dropping we we will give him fluid. -Echo was done and EF of 50 to 55%. Diastolic dysfunction is indeterminate. Management per cardiology -Patient has COPD continues on dexamethasone, nebulizer treatment as needed. -Patient has hyponatremia and hyperkalemia. I give the patient Kayexalate. Monitor electrolytes. Will follow nephrology for additional recommendation. 04/10 -Renal function is worsening, nephrology is following -Blood pressure is better today -Hyperkalemia; I added Kayexalate -Morbid obesity 04/11 -Slight improvement in creatinine. Hyponatremia worsened. Nephrology is following and put the patient back on Lasix. -Blood PRESSURE IS BETTER today -Potassium this morning was 5.8, I ordered 60 g of Kayexalate -Morbidly obese -Obesity hypoventilation syndrome 04/12 -Creatinine is improving and this morning was 2.4 -Hyponatremia improved this morning was 134. Patient is on Lasix -Blood pressure is better -Patient is on 10 L of oxygen; worsened -Morbidly obese, CLAUDIA History Interval history: Patient was seen and evaluated this morning Patient was on 10 L of oxygen No chest pain Hospitalist Physical - Physical exam Narrative exam: Not in cardiopulmonary distress. The patient is morbidly obese. Vital signs as documented. Head exam is unremarkable. No scleral icterus . Neck is without jugular venous distension, thyromegaly, or carotid bruits. Lungs are clear to auscultation. Cardiac exam reveals regular rate and Rhythm. Abdominal exam reveals normal bowel sounds, nontender, no organomegaly. Extremities are nonedematous and both femoral and pedal pulses are normal. 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 No focal weakness. - Constitutional Vitals: Temp Pulse Resp BP Pulse Ox 97.7 F 93 H 22 136/64 90 04/12/21 08:28 04/12/21 08:28 04/12/21 08:28 04/12/21 08:28 04/12/21 08:28 General appearance: Present: no acute distress HEART Score - HEART Score Troponin: Troponin T 0.078 ng/mL (0.00-0.029) H D 04/08/21 13:03 Results - Labs CBC & Chem 7: 04/09/21 04:52 04/12/21 05:03 Labs: Laboratory Last Values WBC 20.9 K/mm3 (4.5-11.0) H 04/09/21 04:52 RBC 4.09 M/mm3 (3.65-5.03) 04/09/21 04:52 Hgb 8.5 gm/dl (10.1-14.3) L 04/09/21 04:52 Hct 30.0 % (30.3-42.9) L 04/09/21 04:52 MCV 73 fl (79-97) L 04/09/21 04:52 MCH 21 pg (28-32) L 04/09/21 04:52 MCHC 28 % (30-34) L 04/09/21 04:52 RDW 23.9 % (13.2-15.2) H 04/09/21 04:52 Plt Count 339 K/mm3 (140-440) 04/09/21 04:52 Add Manual Diff Complete 04/09/21 04:52 Total Counted 100 04/09/21 04:52 Seg Neuts % (Manual) 77.0 % (40.0-70.0) H 04/09/21 04:52 Band Neutrophils % 13.0 % 04/09/21 04:52 Lymphocytes % (Manual) 1.0 % (13.4-35.0) L 04/09/21 04:52 Reactive Lymphs % (Man) 6.0 % 04/09/21 04:52 Monocytes % (Manual) 2.0 % (0.0-7.3) 04/09/21 04:52 Metamyelocytes % 1.0 % 04/09/21 04:52 Myelocytes % 2.0 % 04/08/21 04:03 Nucleated RBC % 1.0 % (0.0-0.9) H 04/09/21 04:52 Seg Neutrophils # Man 16.1 K/mm3 (1.8-7.7) H 04/09/21 04:52 Band Neutrophils # 2.7 K/mm3 04/09/21 04:52 Lymphocytes # (Manual) 0.2 K/mm3 (1.2-5.4) L 04/09/21 04:52 Abs React Lymphs (Man) 1.3 K/mm3 04/09/21 04:52 Monocytes # (Manual) 0.4 K/mm3 (0.0-0.8) 04/09/21 04:52 Eosinophils # (Manual) 0.0 K/mm3 (0.0-0.4) 04/09/21 04:52 Basophils # (Manual) 0.0 K/mm3 (0.0-0.1) 04/09/21 04:52 Metamyelocytes # 0.2 K/mm3 04/09/21 04:52 Myelocytes # 0.0 K/mm3 04/09/21 04:52 Promyelocytes # 0.0 K/mm3 04/09/21 04:52 Blast Cells # 0.0 K/mm3 04/09/21 04:52 WBC Morphology Not Reportable 04/09/21 04:52 Hypersegmented Neuts Not Reportable 04/09/21 04:52 Hyposegmented Neuts Not Reportable 04/09/21 04:52 Hypogranular Neuts Not Reportable 04/09/21 04:52 Smudge Cells Not Reportable 04/09/21 04:52 Toxic Granulation 2+ 04/09/21 04:52 Toxic Vacuolation 2+ 04/09/21 04:52 Dohle Bodies Not Reportable 04/09/21 04:52 Pelger-Huet Anomaly Not Reportable 04/09/21 04:52 Ana Cristina Rods Not Reportable 04/09/21 04:52 Platelet Estimate Consistent w auto 04/09/21 04:52 Clumped Platelets 1+ 04/09/21 04:52 Plt Clumps, EDTA Not Reportable 04/09/21 04:52 Large Platelets 2+ 04/09/21 04:52 Giant Platelets Not Reportable 04/09/21 04:52 Platelet Satelliting Rare 04/09/21 04:52 Plt Morphology Comment Not Reportable 04/09/21 04:52 RBC Morphology Not Reportable 04/09/21 04:52 Dimorphic RBCs Not Reportable 04/09/21 04:52 Polychromasia Not Reportable 04/09/21 04:52 Hypochromasia 2+ 04/09/21 04:52 Poikilocytosis Not Reportable 04/09/21 04:52 Anisocytosis 2+ 04/09/21 04:52 Microcytosis Not Reportable 04/09/21 04:52 Macrocytosis Not Reportable 04/09/21 04:52 Spherocytes Not Reportable 04/09/21 04:52 Pappenheimer Bodies Not Reportable 04/09/21 04:52 Sickle Cells Not Reportable 04/09/21 04:52 Target Cells 1+ 04/09/21 04:52 Tear Drop Cells Not Reportable 04/09/21 04:52 Ovalocytes Not Reportable 04/09/21 04:52 Helmet Cells Not Reportable 04/09/21 04:52 Saravia-Nisswa Bodies Not Reportable 04/09/21 04:52 Conway Rings Not Reportable 04/09/21 04:52 Sara Cells Not Reportable 04/09/21 04:52 Bite Cells Not Reportable 04/09/21 04:52 Crenated Cell Not Reportable 04/09/21 04:52 Elliptocytes Not Reportable 04/09/21 04:52 Acanthocytes (Spur) Not Reportable 04/09/21 04:52 Rouleaux Not Reportable 04/09/21 04:52 Hemoglobin C Crystals Not Reportable 04/09/21 04:52 Schistocytes Not Reportable 04/09/21 04:52 Malaria parasites Not Reportable 04/09/21 04:52 Tyshawn Bodies Not Reportable 04/09/21 04:52 Hem Pathologist Commnt No 04/09/21 04:52 Sodium 134 mmol/L (137-145) L 04/12/21 05:03 Potassium 4.2 mmol/L (3.6-5.0) 04/12/21 05:03 Chloride 92.9 mmol/L (98-107) L 04/12/21 05:03 Carbon Dioxide 33 mmol/L (22-30) H D 04/12/21 05:03 Anion Gap 12 mmol/L 04/12/21 05:03 BUN 54 mg/dL (7-17) H 04/12/21 05:03 Creatinine 2.4 mg/dL (0.6-1.2) H 04/12/21 05:03 Estimated GFR 28 ml/min 04/12/21 05:03 BUN/Creatinine Ratio 23 % 04/12/21 05:03 Glucose 150 mg/dL (65-100) H 04/12/21 05:03 POC Glucose 144 mg/dL (70-105) H 04/12/21 07:41 Osmolality 301 Mosm/kg 04/09/21 23:15 Calcium 7.2 mg/dL (8.4-10.2) L 04/12/21 05:03 Total Creatine Kinase 1712 units/L (30-135) H 04/10/21 10:04 Troponin T 0.078 ng/mL (0.00-0.029) H D 04/08/21 13:03 NT-Pro-B Natriuret Pep 7573 pg/mL (0-450) H 04/07/21 22:04 Triglycerides 105 mg/dL (2-149) 04/07/21 22:04 Cholesterol 85 mg/dL (50-199) 04/07/21 22:04 LDL Cholesterol Direct 47 mg/dL (50-130) L 04/07/21 22:04 HDL Cholesterol 25 mg/dL (40-59) L 04/07/21 22:04 Cholesterol/HDL Ratio 3.40 % 04/07/21 22:04 Urine Osmolality 157 Mosm/kg 04/09/21 18:46 Urine Sodium 16 mmol/L 04/09/21 18:46 Zambrano/IV: Voiding Method Incontinent Active Medications - Current Medications Current Medications: Generic Name Dose Route Start Last Admin Trade Name Freq PRN Reason Stop Dose Admin Acetaminophen 650 mg 04/08/21 03:00 Acetaminophen 325 Mg Tab PO Q4H PRN Pain MILD(1-3)/Fever >100.5/BROWN Albuterol 2.5 mg 04/08/21 03:00 Albuterol 2.5 Mg/3 Ml Nebu IH Q4HRT PRN Shortness Of Breath Albuterol/Ipratropium 1 ampul 04/08/21 08:00 04/11/21 22:12 Ipratropium/Albuterol Sulfate 3 Ml Ampul.Neb IH 1 ampul TIDRT EKATERINA Administration Aspirin 325 mg 04/09/21 10:00 04/11/21 09:48 Aspirin Ec 325 Mg Tab PO 325 mg QDAY EKATERINA Administration Atorvastatin Calcium 40 mg 04/08/21 22:00 04/11/21 22:39 Atorvastatin 40 Mg Tab PO 40 mg QHS EKATERINA Administration Azithromycin 500 mg 04/09/21 10:00 04/11/21 09:48 Azithromycin 250 Mg Tab PO 04/13/21 10:01 500 mg DAILY EKATERINA Administration Protocol Benzonatate 100 mg 04/08/21 06:00 04/12/21 06:30 Benzonatate 100 Mg Cap PO 100 mg Q8HR EKATERINA Administration Famotidine 10 mg 04/09/21 22:00 04/11/21 22:38 Famotidine 10 Mg Tab PO 10 mg BID EKATERINA Administration Furosemide 60 mg 04/11/21 18:00 04/12/21 06:30 Furosemide 40 Mg/4 Ml Inj IV 60 mg 0600,1800 EKATERINA Administration Heparin Sodium (Porcine) 5,000 unit 04/08/21 06:00 04/11/21 22:37 Heparin 5,000 Unit/1 Ml Vial SUB-Q Not Given Q8HR EKATERINA Hydromorphone HCl 0.5 mg 04/08/21 03:00 Hydromorphone 1 Mg/1 Ml Inj IV Q3H PRN Pain , Severe (7-10) Methylprednisolone 4 mg 04/08/21 10:00 04/11/21 09:47 Methylprednisolone 4 Mg Tab PO 4 mg DAILY EKATERINA Administration Nitroglycerin 0.4 mg 04/08/21 03:00 Nitroglycerin 0.4 Mg Tab Subl SL Q5M PRN Chest Pain Nystatin 1 applic 04/08/21 18:00 04/11/21 22:45 Nystatin Powder 15 Gm TP 1 applic BID EKATERINA Administration Ondansetron HCl 4 mg 04/08/21 03:00 Ondansetron 4 Mg/2 Ml Inj IV Q8H PRN Nausea And Vomiting Oxycodone/Acetaminophen 1 tab 04/08/21 03:00 04/10/21 18:16 Oxycodone /Acetaminophen 5-325mg Tab PO 1 tab Q6H PRN Administration Pain, Moderate (4-6) Sodium Chloride 10 ml 04/08/21 10:00 04/11/21 22:38 Sodium Chloride 0.9% 10 Ml Flush Syringe IV 10 ml BID EKATERINA Administration Sodium Chloride 10 ml 04/08/21 03:00 Sodium Chloride 0.9% 10 Ml Flush Syringe IV PRN PRN LINE FLUSH Sodium Chloride 1 gm 04/11/21 14:00 04/11/21 22:38 Sodium Chloride 1 Gm Tab PO 1 gm TID EKATERINA Administration Sodium Polystyrene Sulfonate 15 gm 04/11/21 11:00 04/11/21 11:07 Sodium Polystyrene 15 Gm/60 Ml Oral Liqd PO 15 gm QDAY EKATERINA Administration Tramadol HCl 50 mg 04/08/21 03:00 Tramadol 50 Mg Tab PO Q6H PRN Pain, Moderate (4-6) Nutrition/Malnutrition Assess - Dietary Evaluation Nutrition/Malnutrition Findings: Nutrition Notes Start: 04/08/21 14:21 Freq: Status: Active Protocol: Document 04/08/21 14:21 GB (Rec: 04/08/21 14:37 GB [id number]) Nutrition Notes Need for Assessment generated from: signals analyst Initial or Follow up Assessment Current Diagnosis Hypertension Other Pertinent Diagnosis Dyspnea, respiratory distress, morbid obesity Current Diet Cardiac Labs/Tests 04/08: Na 134 low [id number] Creatinine 1.8 elevated [id number] Pertinent Medications azithromycin, fluid restriction Height 5 ft 4 in Weight 272.155 kg [place] Body Weight (kg) 54.54 BMI 102.9 Intake Prior to Admission Good Weight change and time frame Pt reports no significant weight change. Weight Status Morbidly Obese Subjective/Other Information Pt states she does want to lose weight. This medical writer, MANJEET, discussed with pt to select a changeable habits to focus on and make the changes a few items at a time (examples if eat out 5 nights change to 3 nights/ 1 fruit a day change to 2 fruit a day). Encouraged pt to contact RD in Bariatric center for outpatient counseling. Percent of energy/protein needs met: Meals and snacks provided meet 100% of estimated energy needs. Burn Absent Trauma Absent GI Symptoms None Food Allergy No Usual Diet at Home regular Skin Integrity/Comment skin risk 13 Current % PO Good (75-100%) Minimum of two criteria No #1 Nutrition Diagnosis Overweight/obesity Comments: Discussed diet/life style changes using small goal successes to advancement, encouraged outpatient RD counseling at bariatric center Etiology dyspnea, respiratory distress As Evidenced by Signs and Symptoms BMI 103, IBW 498% Is patient on ventilator? No Is Patient Ambulatory and/or Out of Bed No REE-([facility]-confined to bed) 4093.764 Kcal/Kg value to use for calculation 10 Approximate Energy Requirements Using 2722 kcal/Kg Calculation Used for Recommendations Kcal/kg Additional Notes Protein 0.6 g/kg r/t BMI over 50: 163g Fluids: 1ml/kcal or per MD Nutrition Intervention Change Diet Order: continue with current diet Nutrition Support: n/a Add Supplement/Snack (indicate name/kcal n/a /protein ) Teaching Recipient Patient Learning Readiness Good Teaching Methods Discussion Response to Teaching Verbalize understanding Barriers to Learning Motivation,Emotional,Social Patient aware of follow up options Yes Actions To Overcome Barriers Collaboration with Other Providers Goal #1 Pt to contact and make appointment with outpatient RD in bariatric center Goal #2 weight to decrease -1% during LOS Follow-Up By: 04/13/21
[2021-04-12] MEDS: ASPIRIN EC 325 MG TAB PO SCH (09:37)
[2021-04-12] MEDS: FAMOTIDINE 10 MG TAB PO SCH ×2 (09:37→21:05)
[2021-04-12] MEDS: SODIUM CHLORIDE 1 GM TAB PO SCH ×3 (09:38→21:04)
[2021-04-12] MEDS: AZITHROMYCIN 250 MG TAB PO SCH (09:38)
[2021-04-12] MEDS: NYSTATIN POWDER 15 GM TP SCH ×2 (09:39→21:05)
[2021-04-12] MEDS: SODIUM POLYSTYRENE 15 GM/60 ML ORAL LIQD PO SCH (09:39)
[2021-04-12] MEDS: methylPREDNISolone 4 MG TAB PO SCH (09:39)
[2021-04-12] MEDS: IPRATROPIUM/ALBUTEROL SULFATE 3 ML AMPUL.NEB IH SCH ×3 (10:05→20:46)
--- NOTE | 2021-04-12 11:05 | Progress Note ---
Assessment and Plan Morbid obesity/OHS/COPD Acute Renal insufficiency Hyponatremia HTN Echo 08/08/2020: Technically very difficult and limited study, due to patient body habitus EF 55 to 60%, left and right atrium are normal in size right ventricular cavity is normal right ventricular global systolic function Echo 04/08/2021: technically difficult study, contrast used for LV function, EF 55 to 60%, right ventricular systolic function is normal, aortic valve not well visualized Consider PO diuretics Subjective Date of service: 04/12/21 Principal diagnosis: Acute on chronic renal insufficiency Interval history: Pt lying in bed sleeping. Objective Vital Signs Temp Pulse Pulse Resp Resp BP Pulse Ox 04/12/21 10:04 96 04/12/21 08:28 97.7 F 93 H 22 136/64 90 04/12/21 06:23 97.6 F 102 H 20 123/68 98 04/12/21 03:45 96 04/12/21 00:11 91 04/12/21 00:08 106 H 04/12/21 00:03 97.4 F L 106 H 18 127/76 96 04/11/21 22:17 96 04/11/21 22:16 99 H 20 04/11/21 21:06 98.2 F 97 H 18 138/85 92 04/11/21 16:18 98.9 F 101 H 22 137/76 95 04/11/21 13:20 90 18 04/11/21 12:00 91 04/11/21 11:55 98.3 F 96 H 22 137/62 99 - Physical Examination General: No Apparent Distress HEENT: Positive: PERRL Neck: Positive: trachea midline Cardiac: Positive: Reg Rate and Rhythm Lungs: Positive: Decreased Breath Sounds Neuro: Positive: Grossly Intact Abdomen: Positive: Soft Skin: Negative: Rash, Suspicious Lesions, Ulceration Extremities: Present: upper extr. pulses. Absent: edema - Labs and Meds Comprehensive Metabolic Panel 04/11/21 04/12/21 Range/Units 19:12 05:03 Sodium 128 L 134 L (137-145) mmol/L Potassium 5.0 4.2 (3.6-5.0) mmol/L Chloride 89.7 L 92.9 L (98-107) mmol/L Carbon Dioxide 26 33 H D (22-30) mmol/L BUN 53 H 54 H (7-17) mg/dL Creatinine 2.4 H 2.4 H (0.6-1.2) mg/dL Glucose 159 H 150 H (65-100) mg/dL Calcium 7.1 L 7.2 L (8.4-10.2) mg/dL - Imaging and Cardiology EKG: report reviewed, image reviewed Echo: report reviewed - EKG Sinus rhythms and dysrhythmias: sinus rhythm Repolarization changes or abnormalities: nonspecific abnormality, ST segment, and/or T wave
[2021-04-12 15:19] LABS: Mean Corpuscular HGB Conc 29 % (30-34); Mean Corpuscular Volume 74 fl (79-97); Platelet Count 254 K/mm3 (140-440); Red Blood Count 4.05 M/mm3 (3.65-5.03)
--- NOTE | 2021-04-12 15:23 | XRay Report ---
CHEST 1 VIEW INDICATION / CLINICAL INFORMATION: chest eval. COMPARISON: 04/07/2021 FINDINGS: SUPPORT DEVICES: None. HEART / MEDIASTINUM: Stable. LUNGS / PLEURA: Examination markedly degraded secondary to soft tissue attenuation. No significant in terval change in faint bibasilar airspace opacities. No pneumothorax. ADDITIONAL FINDINGS: No significant additional findings. IMPRESSION: Allowing for Limited examination, no change. Signer Name: Darron Salcedo MD Signed: 04/12/2021 3:18 PM Workstation Name: [id number]
[2021-04-12 15:24] LABS: Hematocrit 29.8 % (30.3-42.9); Hemoglobin 8.7 gm/dl (10.1-14.3)
[2021-04-12 15:25] LABS: Red Cell Distribution Width 24.9 % (13.2-15.2)
[2021-04-12 16:08] LABS: Band Neutrophils # (Manual) 0.1 K/mm3; Total Cells Counted 100
[2021-04-12 16:11] LABS: Hypochromasia 1+
[2021-04-12 16:12] LABS: Target Cells 1+; Tear Drop Cells Few
[2021-04-12 16:13] LABS: Platelet Estimate Consistent w Auto
--- NOTE | 2021-04-12 17:10 | Progress Note ---
Assessment and Plan Assessment Acute kidney injury, unknown baseline. Renal ultrasound notes poor visualization due to body habitus. Hypervolemic Hyponatremia Hyperkalemia Hypocalcemia Morbid obesity Recommendations Continue sodium tabs and diuresis S/p Kayexalate on admissiom Ordered cortisol - pending Ordered ionized calcium - pending Maintain MAP more than 65 Hold SUNG/ARB at this time Hold diuretics given soft pressures Renally dose medications Avoid nephrotoxins Renal diet Subjective Date of service: 04/12/21 Principal diagnosis: Acute on chronic renal insufficiency Interval history: Patient was seen for her renal issues Nursing, interdisciplinary and consult notes were reviewed Vitals, input and output, medications and labs were reviewed Remains on NC Objective - Exam Narrative Exam: General: Morbid obesity HEENT: Oral mucosa moist Neck: Supple, no JVD Chest: Clear to auscultation bilaterally Heart: RRR, S1 and S2, no pericardial rub Abdomen: Soft, nontender, no renal bruit Extremity: No peripheral cyanosis, edema Neurological: Awake and alert Dermatology: Unable to assess Psych: Calm and cooperative Musculoskeletal: No joint effusion - Vital Signs Vital signs: Vital Signs - 12hr 04/12/21 04/12/21 04/12/21 06:23 08:10 08:28 Temperature 97.6 F 97.7 F Pulse Rate 102 H 99 H 93 H Pulse Rate [ Anterior Bilateral Throughout] Respiratory 20 22 Rate Respiratory Rate [Anterior Bilateral Throughout] Blood Pressure 123/68 136/64 O2 Sat by Pulse 98 90 Oximetry 04/12/21 04/12/21 04/12/21 10:04 11:42 12:00 Temperature 98.9 F Pulse Rate 103 H Pulse Rate [ Anterior Bilateral Throughout] Respiratory 22 Rate Respiratory Rate [Anterior Bilateral Throughout] Blood Pressure 142/73 O2 Sat by Pulse 96 99 91 Oximetry 04/12/21 04/12/21 04/12/21 14:53 14:54 17:02 Temperature 98.3 F Pulse Rate 104 H Pulse Rate [ 101 H Anterior Bilateral Throughout] Respiratory 20 Rate Respiratory 20 Rate [Anterior Bilateral Throughout] Blood Pressure 145/81 O2 Sat by Pulse 98 97 Oximetry - Lab 04/12/21 14:11 04/12/21 05:03 Most recent lab results Calcium 7.2 mg/dL (8.4-10.2) L 04/12/21 05:03 Urine Sodium 16 mmol/L 04/09/21 18:46 Medications & Allergies - Medications Allergies/Adverse Reactions: Allergies No Known Allergies Allergy (Unverified 01/27/17 11:17) Home Medications: Home Medications Medication Instructions Recorded Confirmed Last Taken Type Acetaminophen [Acetaminophen TAB] 325 mg PO Q4H PRN #30 tablet 06/30/17 08/08/20 Unknown Rx ALBUTEROL NEB's [Proventil 0.083% 2.5 mg IH Q3HRT PRN #30 day 08/10/20 Unknown Rx NEBS] Albuterol Mdi (or & Nicu Only) 2 puff IH QID PRN #1 inhalation 08/10/20 Unknown Rx [ProAir HFA Inhaler] Azithromycin [Zithromax Z-BIN] 0 mg PO DAILY #1 tab 08/10/20 Unknown Rx Benzonatate [Tessalon Perles] 100 mg PO Q8HR #15 capsule 08/10/20 Unknown Rx Famotidine [Pepcid] 20 mg PO BID #14 tablet 08/10/20 Unknown Rx Ipratropium/Albuterol Sulfate 1 ampul IH TIDRT #30 day 08/10/20 Unknown Rx [DUONEB *Not for PRN Use*] hydroCHLOROthiazide [HCTZ] 25 mg PO QDAY tablet 08/10/20 Unknown Rx hydroCHLOROthiazide [HCTZ] 25 mg PO QDAY #30 tablet 08/10/20 Unknown Rx methylPREDNISolone [Medrol 4MG 4 mg PO DAILY #1 tab.ds.pk 08/10/20 Unknown Rx DOSEPAK (21 tabs)] Active Medications: Generic Name Dose Route Start Last Admin Trade Name Freq PRN Reason Stop Dose Admin Acetaminophen 650 mg 04/08/21 03:00 Acetaminophen 325 Mg Tab PO Q4H PRN Pain MILD(1-3)/Fever >100.5/BROWN Albuterol 2.5 mg 04/08/21 03:00 Albuterol 2.5 Mg/3 Ml Nebu IH Q4HRT PRN Shortness Of Breath Albuterol/Ipratropium 1 ampul 04/08/21 08:00 04/12/21 14:38 Ipratropium/Albuterol Sulfate 3 Ml Ampul.Neb IH 1 ampul TIDRT EKATERINA Administration Aspirin 325 mg 04/09/21 10:00 04/12/21 09:37 Aspirin Ec 325 Mg Tab PO 325 mg QDAY EKATERINA Administration Atorvastatin Calcium 40 mg 04/08/21 22:00 04/11/21 22:39 Atorvastatin 40 Mg Tab PO 40 mg QHS EKATERINA Administration Azithromycin 500 mg 04/09/21 10:00 04/12/21 09:38 Azithromycin 250 Mg Tab PO 04/13/21 10:01 500 mg DAILY EKATERINA Administration Protocol Benzonatate 100 mg 04/08/21 06:00 04/12/21 13:55 Benzonatate 100 Mg Cap PO 100 mg Q8HR EKATERINA Administration Famotidine 10 mg 04/09/21 22:00 04/12/21 09:37 Famotidine 10 Mg Tab PO 10 mg BID EKATERINA Administration Furosemide 60 mg 04/11/21 18:00 04/12/21 17:06 Furosemide 40 Mg/4 Ml Inj IV 60 mg 0600,1800 [facility] Administration Guaifenesin 200 mg 04/12/21 14:47 Guaifenesin 100 Mg/5 Ml Oral Liqd PO Q4H PRN Cough Heparin Sodium (Porcine) 5,000 unit 04/08/21 06:00 04/12/21 13:56 Heparin 5,000 Unit/1 Ml Vial SUB-Q Not Given Q8HR [facility] Hydromorphone HCl 0.5 mg 04/08/21 03:00 Hydromorphone 1 Mg/1 Ml Inj IV Q3H PRN Pain , Severe (7-10) Methylprednisolone 4 mg 04/08/21 10:00 04/12/21 09:39 Methylprednisolone 4 Mg Tab PO 4 mg DAILY EKATERINA Administration Nitroglycerin 0.4 mg 04/08/21 03:00 Nitroglycerin 0.4 Mg Tab Subl SL Q5M PRN Chest Pain Nystatin 1 applic 04/08/21 18:00 04/12/21 09:39 Nystatin Powder 15 Gm TP 1 applic BID EKATERINA Administration Ondansetron HCl 4 mg 04/08/21 03:00 Ondansetron 4 Mg/2 Ml Inj IV Q8H PRN Nausea And Vomiting Oxycodone/Acetaminophen 1 tab 04/08/21 03:00 04/10/21 18:16 Oxycodone /Acetaminophen 5-325mg Tab PO 1 tab Q6H PRN Administration Pain, Moderate (4-6) Sodium Chloride 10 ml 04/08/21 10:00 04/12/21 09:39 Sodium Chloride 0.9% 10 Ml Flush Syringe IV 10 ml BID EKATERINA Administration Sodium Chloride 10 ml 04/08/21 03:00 Sodium Chloride 0.9% 10 Ml Flush Syringe IV PRN PRN LINE FLUSH Sodium Chloride 1 gm 04/11/21 14:00 04/12/21 13:55 Sodium Chloride 1 Gm Tab PO 1 gm TID EKATERINA Administration Tramadol HCl 50 mg 04/08/21 03:00 Tramadol 50 Mg Tab PO Q6H PRN Pain, Moderate (4-6)
[2021-04-13] MEDS: oxyCODONE /ACETAMINOPHEN 5-325MG TAB PO PRN (01:52)
[2021-04-13] MEDS: HEPARIN 5,000 UNIT/1 ML VIAL SUB-Q SCH ×3 (06:38→22:37)
[2021-04-13] MEDS: FUROSEMIDE 40 MG/4 ML INJ IV SCH (06:38)
[2021-04-13] MEDS: BENZONATATE 100 MG CAP PO SCH ×3 (06:38→23:25)
[2021-04-13 06:40] LABS: Calcium 7.8 mg/dL (8.4-10.2)
[2021-04-13] MEDS: SODIUM CHLORIDE 1 GM TAB PO SCH ×3 (08:05→23:25)
[2021-04-13] MEDS: IPRATROPIUM/ALBUTEROL SULFATE 3 ML AMPUL.NEB IH SCH ×3 (08:11→21:56)
--- NOTE | 2021-04-13 08:45 | Progress Note ---
Assessment and Plan Assessment and plan: (1) Non-ST elevation NM (NSTEMI) Current Visit: Yes Status: Acute Plan to address problem: Admit the patient to the medical telemetry. Aspirin 325 mg p.o. daily. Lipitor 40 mg p.o. daily. Nitroglycerin as needed. We do the serial cardiac enzyme. We also consult cardiology for evaluation and order echocardiogram. (2) Acute exacerbation of CHF (congestive heart failure) Current Visit: Yes Status: Acute Plan to address problem: Fluid restriction. Maintain input output. Lasix 40 mg IV every 12 hours. Oxygen via nasal cannula 3 L/min. DuoNeb by nebulizer every 4 hours. Echocardiogram. Cardiology consult (3) Hypertension Current Visit: Yes Status: Acute Plan to address problem: We will continue the home medication. Hydralazine 10 mg IV every 6 hours as needed. We will monitor the blood pressure closely (4) COPD (chronic obstructive pulmonary disease) Current Visit: Yes Status: Acute Plan to address problem: Oxygen by nasal cannula 3 L/min. DuoNeb via nebulizer every 4 hours. Albuterol via nebulizer every 4 hours as needed. (5) Morbid obesity Current Visit: Yes Status: Acute Plan to address problem: We counseled regarding weight reduction. Outpatient follow-up with bariatric surgeon (6) Hyperglycemia Current Visit: Yes Status: Acute Plan to address problem: We will give 1 ampoule of D50. We will put the patient on cardiac diet. We will monitor the blood glucose closely (7) DVT prophylaxis Current Visit: No Status: Acute Plan to address problem: Heparin 5000 units subcu every 8 hours for DVT prophylaxis. Pepcid 20 mg p.o. twice daily for GI prophylaxis. Patient is a full code 04/09 -Patient is on heparin drip for non-STEMI, cardiology is following. -Patient is off Lasix and SUNG inhibitors because of GILBERTO. -Kidney function is worsening overnight and I put a consult for nephrology. -Patient is hypotensive and blood pressure from this morning was 101/41. We will continue to monitor. And if it is dropping we we will give him fluid. -Echo was done and EF of 50 to 55%. Diastolic dysfunction is indeterminate. Management per cardiology -Patient has COPD continues on dexamethasone, nebulizer treatment as needed. -Patient has hyponatremia and hyperkalemia. I give the patient Kayexalate. Monitor electrolytes. Will follow nephrology for additional recommendation. 04/10 -Renal function is worsening, nephrology is following -Blood pressure is better today -Hyperkalemia; I added Kayexalate -Morbid obesity 04/11 -Slight improvement in creatinine. Hyponatremia worsened. Nephrology is following and put the patient back on Lasix. -Blood PRESSURE IS BETTER today -Potassium this morning was 5.8, I ordered 60 g of Kayexalate -Morbidly obese -Obesity hypoventilation syndrome 04/12 -Creatinine is improving and this morning was 2.4 -Hyponatremia improved this morning was 134. Patient is on Lasix -Blood pressure is better -Patient is on 10 L of oxygen; worsened -Morbidly obese, CLAUDIA 04/13: Follow ordered ultrasound of abdomen, per Physician unable to get CT. I ordered an ABG due to my concern about her breathing pattern this morning, patient may benefit from. Will try to establish if patient has a primary pulmonary doctor. ABG is showing consistent with Respiratory Acidosis. Will place on BIPAP now. May need to transfer to IMCU for closer monitoring. Patient likely with Obesity Hypoventilation syndrome. cardiology work up, ongoing. RENAL SHOWING SOME IMPROVEMENT Guarded prognosis History Interval history: Patient seen and examined, very stoprous this morning, on 10 liters of oxygen, no cpap/bipap in the room Hospitalist Physical - Constitutional Vitals: Temp Pulse Resp BP Pulse Ox 98.1 F 104 H 20 114/72 98 04/13/21 03:20 04/13/21 08:11 04/13/21 08:11 04/13/21 03:20 04/13/21 08:11 General appearance: Present: no acute distress HEART Score - HEART Score Troponin: Troponin T 0.078 ng/mL (0.00-0.029) H D 04/08/21 13:03 Results - Labs CBC & Chem 7: 04/12/21 14:11 04/13/21 05:03 Labs: Laboratory Last Values WBC 14.7 K/mm3 (4.5-11.0) H 04/12/21 14:11 RBC 4.05 M/mm3 (3.65-5.03) 04/12/21 14:11 Hgb 8.7 gm/dl (10.1-14.3) L 04/12/21 14:11 Hct 29.8 % (30.3-42.9) L 04/12/21 14:11 MCV 74 fl (79-97) L 04/12/21 14:11 MCH 22 pg (28-32) L 04/12/21 14:11 MCHC 29 % (30-34) L 04/12/21 14:11 RDW 24.9 % (13.2-15.2) H 04/12/21 14:11 Plt Count 254 K/mm3 (140-440) 04/12/21 14:11 Add Manual Diff Complete 04/12/21 14:11 Total Counted 100 04/12/21 14:11 Seg Neuts % (Manual) 86.0 % (40.0-70.0) H 04/12/21 14:11 Band Neutrophils % 1.0 % 04/12/21 14:11 Lymphocytes % (Manual) 6.0 % (13.4-35.0) L 04/12/21 14:11 Reactive Lymphs % (Man) 1.0 % 04/12/21 14:11 Monocytes % (Manual) 4.0 % (0.0-7.3) 04/12/21 14:11 Metamyelocytes % 2.0 % 04/12/21 14:11 Myelocytes % 2.0 % 04/08/21 04:03 Nucleated RBC % Not Reportable 04/12/21 14:11 Seg Neutrophils # Man 12.6 K/mm3 (1.8-7.7) H 04/12/21 14:11 Band Neutrophils # 0.1 K/mm3 04/12/21 14:11 Lymphocytes # (Manual) 0.9 K/mm3 (1.2-5.4) L 04/12/21 14:11 Abs React Lymphs (Man) 0.1 K/mm3 04/12/21 14:11 Monocytes # (Manual) 0.6 K/mm3 (0.0-0.8) 04/12/21 14:11 Eosinophils # (Manual) 0.0 K/mm3 (0.0-0.4) 04/12/21 14:11 Basophils # (Manual) 0.0 K/mm3 (0.0-0.1) 04/12/21 14:11 Metamyelocytes # 0.3 K/mm3 04/12/21 14:11 Myelocytes # 0.0 K/mm3 04/12/21 14:11 Promyelocytes # 0.0 K/mm3 04/12/21 14:11 Blast Cells # 0.0 K/mm3 04/12/21 14:11 WBC Morphology Not Reportable 04/12/21 14:11 WBC Morphology TNR 04/12/21 14:11 Hypersegmented Neuts Not Reportable 04/12/21 14:11 Hyposegmented Neuts Not Reportable 04/12/21 14:11 Hypogranular Neuts Not Reportable 04/12/21 14:11 Smudge Cells Not Reportable 04/12/21 14:11 Toxic Granulation Not Reportable 04/12/21 14:11 Toxic Vacuolation Not Reportable 04/12/21 14:11 Dohle Bodies Not Reportable 04/12/21 14:11 Pelger-Huet Anomaly Not Reportable 04/12/21 14:11 Ana Cristina Rods Not Reportable 04/12/21 14:11 Platelet Estimate Consistent w auto 04/12/21 14:11 Clumped Platelets Not Reportable 04/12/21 14:11 Plt Clumps, EDTA Not Reportable 04/12/21 14:11 Large Platelets Not Reportable 04/12/21 14:11 Giant Platelets Not Reportable 04/12/21 14:11 Platelet Satelliting Not Reportable 04/12/21 14:11 Plt Morphology Comment Not Reportable 04/12/21 14:11 RBC Morphology Not Reportable 04/12/21 14:11 Dimorphic RBCs Not Reportable 04/12/21 14:11 Polychromasia Few 04/12/21 14:11 Hypochromasia 1+ 04/12/21 14:11 Poikilocytosis Not Reportable 04/12/21 14:11 Anisocytosis Not Reportable 04/12/21 14:11 Microcytosis Not Reportable 04/12/21 14:11 Macrocytosis Not Reportable 04/12/21 14:11 Spherocytes Not Reportable 04/12/21 14:11 Pappenheimer Bodies Not Reportable 04/12/21 14:11 Sickle Cells Not Reportable 04/12/21 14:11 Target Cells 1+ 04/12/21 14:11 Tear Drop Cells Few 04/12/21 14:11 Ovalocytes Not Reportable 04/12/21 14:11 Helmet Cells Not Reportable 04/12/21 14:11 [place] Bodies Not Reportable 04/12/21 14:11 [place] Rings Not Reportable 04/12/21 14:11 [place] Cells Not Reportable 04/12/21 14:11 Bite Cells Not Reportable 04/12/21 14:11 Crenated Cell Not Reportable 04/12/21 14:11 Elliptocytes Not Reportable 04/12/21 14:11 Acanthocytes (Spur) Not Reportable 04/12/21 14:11 Rouleaux Not Reportable 04/12/21 14:11 Hemoglobin C Crystals Not Reportable 04/12/21 14:11 Schistocytes Not Reportable 04/12/21 14:11 Malaria parasites Not Reportable 04/12/21 14:11 Tyshawn Bodies Not Reportable 04/12/21 14:11 Hem Pathologist Commnt No 04/12/21 14:11 Sodium 134 mmol/L (137-145) L 04/13/21 05:03 Potassium 4.2 mmol/L (3.6-5.0) 04/13/21 05:03 Chloride 91.3 mmol/L (98-107) L 04/13/21 05:03 Carbon Dioxide 33 mmol/L (22-30) H 04/13/21 05:03 Anion Gap 14 mmol/L 04/13/21 05:03 BUN 63 mg/dL (7-17) H 04/13/21 05:03 Creatinine 2.2 mg/dL (0.6-1.2) H 04/13/21 05:03 Estimated GFR 31 ml/min 04/13/21 05:03 BUN/Creatinine Ratio 29 % 04/13/21 05:03 Glucose 159 mg/dL (65-100) H 04/13/21 05:03 POC Glucose 151 mg/dL (70-105) H 04/12/21 23:14 Osmolality 301 Mosm/kg 04/09/21 23:15 Calcium 7.8 mg/dL (8.4-10.2) L 04/13/21 05:03 Ionized Calcium 3.6 mg/dL (4.8-5.6) L 04/09/21 23:15 Total Creatine Kinase 1712 units/L (30-135) H 04/10/21 10:04 Troponin T 0.078 ng/mL (0.00-0.029) H D 04/08/21 13:03 NT-Pro-B Natriuret Pep 7573 pg/mL (0-450) H 04/07/21 22:04 Triglycerides 105 mg/dL (2-149) 04/07/21 22:04 Cholesterol 85 mg/dL (50-199) 04/07/21 22:04 LDL Cholesterol Direct 47 mg/dL (50-130) L 04/07/21 22:04 HDL Cholesterol 25 mg/dL (40-59) L 04/07/21 22:04 Cholesterol/HDL Ratio 3.40 % 04/07/21 22:04 Urine Osmolality 157 Mosm/kg 04/09/21 18:46 Urine Sodium 16 mmol/L 04/09/21 18:46 Zambrano/IV: Voiding Method External Female Catheter Active Medications - Current Medications Current Medications: Generic Name Dose Route Start Last Admin Trade Name Freq PRN Reason Stop Dose Admin Acetaminophen 650 mg 04/08/21 03:00 Acetaminophen 325 Mg Tab PO Q4H PRN Pain MILD(1-3)/Fever >100.5/BROWN Albuterol 2.5 mg 04/08/21 03:00 Albuterol 2.5 Mg/3 Ml Nebu IH Q4HRT PRN Shortness Of Breath Albuterol/Ipratropium 1 ampul 04/08/21 08:00 04/13/21 08:11 Ipratropium/Albuterol Sulfate 3 Ml Ampul.Neb IH 1 ampul TIDRT EKATERINA Administration Aspirin 325 mg 04/09/21 10:00 04/12/21 09:37 Aspirin Ec 325 Mg Tab PO 325 mg QDAY EKATERINA Administration Atorvastatin Calcium 40 mg 04/08/21 22:00 04/12/21 21:04 Atorvastatin 40 Mg Tab PO 40 mg QHS EKATERINA Administration Azithromycin 500 mg 04/09/21 10:00 04/12/21 09:38 Azithromycin 250 Mg Tab PO 04/13/21 10:01 500 mg DAILY EKATERINA Administration Protocol Benzonatate 100 mg 04/08/21 06:00 04/13/21 06:38 Benzonatate 100 Mg Cap PO 100 mg Q8HR EKATERINA Administration Famotidine 10 mg 04/09/21 22:00 04/12/21 21:05 Famotidine 10 Mg Tab PO 10 mg BID EKATERINA Administration Furosemide 60 mg 04/11/21 18:00 04/13/21 06:38 Furosemide 40 Mg/4 Ml Inj IV 60 mg 0600,1800 EKATERINA Administration Guaifenesin 200 mg 04/12/21 14:47 Guaifenesin 100 Mg/5 Ml Oral Liqd PO Q4H PRN Cough Heparin Sodium (Porcine) 5,000 unit 04/08/21 06:00 04/13/21 06:38 Heparin 5,000 Unit/1 Ml Vial SUB-Q 5,000 unit Q8HR EKATERINA Administration Hydromorphone HCl 0.5 mg 04/08/21 03:00 Hydromorphone 1 Mg/1 Ml Inj IV Q3H PRN Pain , Severe (7-10) Methylprednisolone 4 mg 04/08/21 10:00 04/12/21 09:39 Methylprednisolone 4 Mg Tab PO 4 mg DAILY EKATERINA Administration Nitroglycerin 0.4 mg 04/08/21 03:00 Nitroglycerin 0.4 Mg Tab Subl SL Q5M PRN Chest Pain Nystatin 1 applic 04/08/21 18:00 04/12/21 21:05 Nystatin Powder 15 Gm TP 1 applic BID EKATERINA Administration Ondansetron HCl 4 mg 04/08/21 03:00 Ondansetron 4 Mg/2 Ml Inj IV Q8H PRN Nausea And Vomiting Oxycodone/Acetaminophen 1 tab 04/08/21 03:00 04/13/21 01:52 Oxycodone /Acetaminophen 5-325mg Tab PO 1 tab Q6H PRN Administration Pain, Moderate (4-6) Sodium Chloride 10 ml 04/08/21 10:00 04/12/21 21:05 Sodium Chloride 0.9% 10 Ml Flush Syringe IV 10 ml BID EKATERINA Administration Sodium Chloride 10 ml 04/08/21 03:00 Sodium Chloride 0.9% 10 Ml Flush Syringe IV PRN PRN LINE FLUSH Sodium Chloride 1 gm 04/11/21 14:00 04/12/21 21:04 Sodium Chloride 1 Gm Tab PO 1 gm TID EKATERINA Administration Tramadol HCl 50 mg 04/08/21 03:00 Tramadol 50 Mg Tab PO Q6H PRN Pain, Moderate (4-6) Nutrition/Malnutrition Assess - Dietary Evaluation Nutrition/Malnutrition Findings: Nutrition Notes Start: 04/08/21 14:21 Freq: Status: Active Protocol: Document 04/08/21 14:21 GB (Rec: 04/08/21 14:37 GB [id number]) Nutrition Notes 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 Weight Status Morbidly Obese Subjective/Other Information Pt states she does want to lose weight. This public relations writer, RD, discussed with pt to select a changeable habits to focus on and make the changes a few items at a time (examples if eat out 5 nights change to 3 nights/ 1 fruit a day change to 2 fruit a day). Encouraged pt to contact RD in Bariatric center for outpatient counseling. Percent of energy/protein needs met: Meals and snacks provided meet 100% of estimated energy needs. Burn Absent Trauma Absent GI Symptoms None Food Allergy No Usual Diet at Home regular Skin Integrity/Comment skin risk 13 Current % PO Good (75-100%) Minimum of two criteria No #1 Nutrition Diagnosis Overweight/obesity Comments: Discussed diet/life style changes using small goal successes to advancement, encouraged outpatient RD counseling at bariatric center Etiology dyspnea, respiratory distress As Evidenced by Signs and Symptoms BMI 103, IBW 498% Is patient on ventilator? No Is Patient Ambulatory and/or Out of Bed No REE-([facility]-confined to bed) 4093.764 Kcal/Kg value to use for calculation 10 Approximate Energy Requirements Using 2722 kcal/Kg Calculation Used for Recommendations Kcal/kg Additional Notes Protein 0.6 g/kg r/t BMI over 50: 163g Fluids: 1ml/kcal or per MD Nutrition Intervention Change Diet Order: continue with current diet Nutrition Support: n/a Add Supplement/Snack (indicate name/kcal n/a /protein ) Teaching Recipient Patient Learning Readiness Good Teaching Methods Discussion Response to Teaching Verbalize understanding Barriers to Learning Motivation,Emotional,Social Patient aware of follow up options Yes Actions To Overcome Barriers Collaboration with Other Providers Goal #1 Pt to contact and make appointment with outpatient RD in bariatric center Goal #2 weight to decrease -1% during LOS Follow-Up By: 04/13/21
--- NOTE | 2021-04-13 10:22 | Progress Note ---
Subjective Date of service: 04/13/21 Principal diagnosis: Acute on chronic renal insufficiency Interval history: Assessment Acute kidney injury, unknown baseline. Renal ultrasound notes poor visualization due to body habitus. Hypervolemic Hyponatremia Hyperkalemia Hypocalcemia Morbid obesity Recommendations Continue sodium tabs and diuresis cr is stable today echo noted, likely diastolic disease rec lasix 40mg po bid rise in bun noted S/p Kayexalate on admission Maintain MAP more than 65 Hold SUNG/ARB at this time Hold diuretics given soft pressures Renally dose medications Avoid nephrotoxins Renal diet home soon from renal standpoint, follow up 2 weeks Subjective Date of service: 04/12/21 Principal diagnosis: Acute on chronic renal insufficiency Interval history: Patient was seen for her renal issues Nursing, interdisciplinary and consult notes were reviewed Vitals, input and output, medications and labs were reviewed Remains on NC Objective - Exam Narrative Exam: General: Morbid obesity HEENT: Oral mucosa moist Neck: Supple, no JVD Chest: Clear to auscultation bilaterally Heart: RRR, S1 and S2, no pericardial rub Abdomen: Soft, nontender, no renal bruit Extremity: No peripheral cyanosis, edema Neurological: Awake and alert Dermatology: Unable to assess Psych: Calm and cooperative Musculoskeletal: No joint effusion Objective - Vital Signs Vital signs: Vital Signs - 12hr 04/12/21 04/13/21 04/13/21 23:04 00:00 03:20 Temperature 98.1 F Pulse Rate 103 H 103 H Pulse Rate [ Anterior Bilateral Throughout] Pulse Rate [ 104 H From Monitor] Respiratory 20 24 Rate Respiratory Rate [Anterior Bilateral Throughout] Blood Pressure 128/66 114/72 O2 Sat by Pulse 97 91 43 L Oximetry 04/13/21 04/13/21 04/13/21 04:03 04:33 08:11 Temperature Pulse Rate Pulse Rate [ 104 H Anterior Bilateral Throughout] Pulse Rate [ From Monitor] Respiratory Rate Respiratory 20 Rate [Anterior Bilateral Throughout] Blood Pressure O2 Sat by Pulse 100 100 98 Oximetry - Lab 04/12/21 14:11 04/13/21 05:03 Most recent lab results Calcium 7.8 mg/dL (8.4-10.2) L 04/13/21 05:03 Urine Sodium 16 mmol/L 04/09/21 18:46 Medications & Allergies - Medications Allergies/Adverse Reactions: Allergies No Known Allergies Allergy (Unverified 01/27/17 11:17) Home Medications: Home Medications Medication Instructions Recorded Confirmed Last Taken Type Acetaminophen [Acetaminophen TAB] 325 mg PO Q4H PRN #30 tablet 06/30/17 08/08/20 Unknown Rx ALBUTEROL NEB's [Proventil 0.083% 2.5 mg IH Q3HRT PRN #30 day 08/10/20 Unknown Rx NEBS] Albuterol Mdi (or & Nicu Only) 2 puff IH QID PRN #1 inhalation 08/10/20 Unknown Rx [ProAir HFA Inhaler] Azithromycin [Zithromax Z-BIN] 0 mg PO DAILY #1 tab 08/10/20 Unknown Rx Benzonatate [Tessalon Perles] 100 mg PO Q8HR #15 capsule 08/10/20 Unknown Rx Famotidine [Pepcid] 20 mg PO BID #14 tablet 08/10/20 Unknown Rx Ipratropium/Albuterol Sulfate 1 ampul IH TIDRT #30 day 08/10/20 Unknown Rx [DUONEB *Not for PRN Use*] hydroCHLOROthiazide [HCTZ] 25 mg PO QDAY tablet 08/10/20 Unknown Rx hydroCHLOROthiazide [HCTZ] 25 mg PO QDAY #30 tablet 08/10/20 Unknown Rx methylPREDNISolone [Medrol 4MG 4 mg PO DAILY #1 tab.ds.pk 08/10/20 Unknown Rx DOSEPAK (21 tabs)] Active Medications: Generic Name Dose Route Start Last Admin Trade Name Freq PRN Reason Stop Dose Admin Acetaminophen 650 mg 04/08/21 03:00 Acetaminophen 325 Mg Tab PO Q4H PRN Pain MILD(1-3)/Fever >100.5/BROWN Albuterol 2.5 mg 04/08/21 03:00 Albuterol 2.5 Mg/3 Ml Nebu IH Q4HRT PRN Shortness Of Breath Albuterol/Ipratropium 1 ampul 04/08/21 08:00 04/13/21 08:11 Ipratropium/Albuterol Sulfate 3 Ml Ampul.Neb IH 1 ampul TIDRT EKATERINA Administration Aspirin 325 mg 04/09/21 10:00 04/12/21 09:37 Aspirin Ec 325 Mg Tab PO 325 mg QDAY EKATERINA Administration Atorvastatin Calcium 40 mg 04/08/21 22:00 04/12/21 21:04 Atorvastatin 40 Mg Tab PO 40 mg QHS EKATERINA Administration Benzonatate 100 mg 04/08/21 06:00 04/13/21 06:38 Benzonatate 100 Mg Cap PO 100 mg Q8HR EKATERINA Administration Famotidine 10 mg 04/09/21 22:00 04/12/21 21:05 Famotidine 10 Mg Tab PO 10 mg BID EKATERINA Administration Furosemide 60 mg 04/11/21 18:00 04/13/21 06:38 Furosemide 40 Mg/4 Ml Inj IV 60 mg 0600,1800 EKATERINA Administration Guaifenesin 200 mg 04/12/21 14:47 Guaifenesin 100 Mg/5 Ml Oral Liqd PO Q4H PRN Cough Heparin Sodium (Porcine) 5,000 unit 04/08/21 06:00 04/13/21 06:38 Heparin 5,000 Unit/1 Ml Vial SUB-Q 5,000 unit Q8HR EKATERINA Administration Hydromorphone HCl 0.5 mg 04/08/21 03:00 Hydromorphone 1 Mg/1 Ml Inj IV Q3H PRN Pain , Severe (7-10) Methylprednisolone 4 mg 04/08/21 10:00 04/12/21 09:39 Methylprednisolone 4 Mg Tab PO 4 mg DAILY EKATERINA Administration Nitroglycerin 0.4 mg 04/08/21 03:00 Nitroglycerin 0.4 Mg Tab Subl SL Q5M PRN Chest Pain Nystatin 1 applic 04/08/21 18:00 04/12/21 21:05 Nystatin Powder 15 Gm TP 1 applic BID EKATERINA Administration Ondansetron HCl 4 mg 04/08/21 03:00 Ondansetron 4 Mg/2 Ml Inj IV Q8H PRN Nausea And Vomiting Oxycodone/Acetaminophen 1 tab 04/08/21 03:00 04/13/21 01:52 Oxycodone /Acetaminophen 5-325mg Tab PO 1 tab Q6H PRN Administration Pain, Moderate (4-6) Sodium Chloride 10 ml 04/08/21 10:00 04/12/21 21:05 Sodium Chloride 0.9% 10 Ml Flush Syringe IV 10 ml BID EKATERINA Administration Sodium Chloride 10 ml 04/08/21 03:00 Sodium Chloride 0.9% 10 Ml Flush Syringe IV PRN PRN LINE FLUSH Sodium Chloride 1 gm 04/11/21 14:00 04/12/21 21:04 Sodium Chloride 1 Gm Tab PO 1 gm TID EKATERINA Administration Tramadol HCl 50 mg 04/08/21 03:00 Tramadol 50 Mg Tab PO Q6H PRN Pain, Moderate (4-6)
[2021-04-13 10:31] LABS: ABG Base Excess 7.1 mmol/L (-2.0-3.0); ABG HCO3 37.2 mmol/L (20.0-26.0); ABG Methemoglobin 0.4 % (0.0-1.5); ABG Oxygen Saturation 95.7 % (95.0-99.0); ABG PCO2 109.3 mm Hg; ABG PO2 91.8 mm Hg (80.0-90.0)
[2021-04-13] MEDS ORDERED: FUROSEMIDE 40 MG/4 ML INJ IV SCH (11:00)
[2021-04-13] MEDS: FAMOTIDINE 10 MG TAB PO SCH ×2 (11:03→23:25)
[2021-04-13 11:04] LABS: ABG PH 7.15 pH Units (7.350-7.450)
--- NOTE | 2021-04-13 11:21 | Progress Note ---
Assessment and Plan Patient is a 35 y/o female with a PMHX of morbid obesity, HTN, COPD NSTEMI type 2 Elevated BNP * Troponins minimally elevated 0.032->0.099->0.078. EKG shows sinus tach 116 with no acute ischemic changes. * BNP noted to be elevated. Currently on Lasix 40mg PO BID * Echo 08/08/2020- Technically very difficult and limited study, due to patient body habitus EF 55 to 60%, left and right atrium are normal in size right ventricular cavity is normal right ventricular global systolic function * Echo 04/08/2021-technically difficult study, contrast used for LV function, EF 55 to 60%, right ventricular systolic function is normal, aortic valve not well visualized Acute Renal insufficiency Hyponatremia * Patient cr 1.8 on admission. * Nephrology following HTN * Patient has been hypotensive. * Hold SUNG/ARB in setting of acute renal insufficiency and hypotension Obesity Hypoventilation Syndrome COPD * Patient currently on NC * Management per primary team Plan: Continue to hold SUNG/ARB, HCTZ in setting of renal insufficiency.No ischemic eval due to patient's due patient's obesity. Patient seen in conjunction with Dr. Carranza who agrees with this plan of care. Will continue to follow - Patient Problems (1) Elevated troponin Current Visit: Yes Status: Acute (2) Acute renal insufficiency Current Visit: Yes Status: Acute (3) COPD (chronic obstructive pulmonary disease) Current Visit: Yes Status: Acute (4) Hypertension Current Visit: Yes Status: Acute (5) Morbid obesity Current Visit: Yes Status: Acute (6) Morbid obesity with BMI of 70 and over, adult Current Visit: No Status: Acute (7) Obesity hypoventilation syndrome Current Visit: No Status: Acute Subjective Date of service: 04/13/21 Principal diagnosis: Acute on chronic renal insufficiency Interval history: Patient lying in bed. Sinus 100 with no events on monitor Objective Vital Signs Temp Pulse Pulse Pulse Resp Resp BP 04/13/21 08:11 104 H 20 04/13/21 04:33 04/13/21 04:03 04/13/21 03:20 98.1 F 103 H 24 114/72 04/13/21 00:00 104 H 04/12/21 23:04 103 H 20 128/66 04/12/21 22:00 105 H 04/12/21 20:50 04/12/21 20:49 103 H 20 04/12/21 19:16 98.7 F 101 H 20 128/78 04/12/21 17:02 98.3 F 104 H 20 145/81 04/12/21 14:54 04/12/21 14:53 101 H 20 04/12/21 12:00 04/12/21 11:42 98.9 F 103 H 22 142/73 Pulse Ox 04/13/21 08:11 98 04/13/21 04:33 100 04/13/21 04:03 100 04/13/21 03:20 43 L 04/13/21 00:00 91 04/12/21 23:04 97 04/12/21 22:00 04/12/21 20:50 97 04/12/21 20:49 04/12/21 19:16 97 04/12/21 17:02 97 04/12/21 14:54 98 04/12/21 14:53 04/12/21 12:00 91 04/12/21 11:42 99 - Physical Examination General: No Apparent Distress HEENT: Positive: PERRL Neck: Positive: trachea midline Cardiac: Positive: Regular Rhythm, Tachycardia Lungs: Positive: Decreased Breath Sounds Neuro: Positive: Grossly Intact Abdomen: Positive: Soft Skin: Negative: Rash, Suspicious Lesions, Ulceration Extremities: Present: upper extr. pulses. Absent: edema - Labs and Meds CBC 04/12/21 Range/Units 14:11 WBC 14.7 H (4.5-11.0) K/mm3 RBC 4.05 (3.65-5.03) M/mm3 Hgb 8.7 L (10.1-14.3) gm/dl Hct 29.8 L (30.3-42.9) % Plt Count 254 (140-440) K/mm3 Comprehensive Metabolic Panel 04/13/21 Range/Units 05:03 Sodium 134 L (137-145) mmol/L Potassium 4.2 (3.6-5.0) mmol/L Chloride 91.3 L (98-107) mmol/L Carbon Dioxide 33 H (22-30) mmol/L BUN 63 H (7-17) mg/dL Creatinine 2.2 H (0.6-1.2) mg/dL Glucose 159 H (65-100) mg/dL Calcium 7.8 L (8.4-10.2) mg/dL - Imaging and Cardiology EKG: report reviewed, image reviewed Echo: report reviewed - Telemetry EKG Rhythm: Sinus Tachycardia - EKG Sinus rhythms and dysrhythmias: sinus tachycardia Repolarization changes or abnormalities: nonspecific abnormality, ST segment, and/or T wave
[2021-04-13] MEDS: AZITHROMYCIN 250 MG TAB PO SCH (11:55)
[2021-04-13] MEDS: ASPIRIN EC 325 MG TAB PO SCH (11:59)
[2021-04-13] MEDS: methylPREDNISolone 4 MG TAB PO SCH (12:00)
[2021-04-13] MEDS: NYSTATIN POWDER 15 GM TP SCH ×2 (12:05→23:29)
[2021-04-13 18:55] LABS: ABG Base Excess 7.4 mmol/L (-2.0-3.0); ABG HCO3 36.2 mmol/L (20.0-26.0); ABG Methemoglobin 0.4 % (0.0-1.5); ABG Oxygen Saturation 95.9 % (95.0-99.0); ABG PCO2 86.9 mm Hg; ABG PH 7.237 pH Units (7.350-7.450); ABG PO2 81.8 mm Hg (80.0-90.0)
[2021-04-13] MEDS: HYDROmorphone 1 MG/1 ML INJ IV PRN (18:57)
[2021-04-13] MEDS: FUROSEMIDE 40 MG TAB PO SCH (18:58)
[2021-04-13] MEDS ORDERED: FUROSEMIDE 20 MG/2 ML INJ IV ONE (22:52)
[2021-04-13] MEDS ORDERED: FAMOTIDINE 20 MG/2 ML INJ IV ONE (22:52)
[2021-04-13] MEDS ORDERED: FAMOTIDINE 20 MG/2 ML INJ IV NR (23:00)
--- NOTE | 2021-04-13 23:13 | Consultation ---
History of Present Illness Consult date: 04/13/21 Reason for consult: dyspnea, hypoxemia, pneumonia, obstructive sleep apnea History of present illness: 35 years old female with history of morbid obesity, hypertension, asthma COPD sleep apnea was brought to the emergency room because of shortness of breath, edema, generalized malaise, fatigue, and weakness for last couple of days. She states she just does not feel well. She has a headache. She states her legs are swollen. She feels as though she is retaining fluid. She states that she went to her regular doctors on the . They tested her for Covid. It was negative. She was told to go see a sawdust drier. She is not seen a car diologist as of yet. She came in here because she was not feeling well and did not know what to do. She has had no sick contacts. Patients smoking, alchol or drug history not known at this time. Social history not known at this time. No known drug allergies. In the emergency room patient is found to have acute CHF exacerbation patient proBNP is 7573 also patient cardiac enzyme is elevated troponin is 0.043. Patient blood glucose also 55 patient is hypoglycemic Patient lethergic and sleepy. Patient afebrile. has leukocytosis. Blood pressure 129/77, Pulse 103. Patient is on BIPAP /, rate 20, FIO2 30%. O2 saturation running 98%. Patients chest xray 04/12/21 reported Examination markedly degraded secondary to soft tissue attenuation. No significant interval change in faint bibasilar airspace opacities. No pneumothorax. Patient presently on Albuterol/atrovent aerosol treatments q 6 hours., S/C Heparin, Famotidine, Po medrol. Past History Past Medical History: hypertension, other (Asthma, morbid obesity, sleep apnea. Obesity hypoventilation.) Social history: no significant social history Family history: CAD, diabetes Medications and Allergies Allergies Allergy/AdvReac Type Severity Reaction Status Date / Time No Known Allergies Allergy Unverified 01/27/17 11:17 Home Medications Medication Instructions Recorded Confirmed Last Taken Type Acetaminophen [Acetaminophen TAB] 325 mg PO Q4H PRN #30 tablet 06/30/17 08/08/20 Unknown Rx ALBUTEROL NEB's [Proventil 0.083% 2.5 mg IH Q3HRT PRN #30 day 08/10/20 Unknown Rx NEBS] Albuterol Mdi (or & Nicu Only) 2 puff IH QID PRN #1 inhalation 08/10/20 Unknown Rx [ProAir HFA Inhaler] Azithromycin [Zithromax Z-BIN] 0 mg PO DAILY #1 tab 08/10/20 Unknown Rx Benzonatate [Tessalon Perles] 100 mg PO Q8HR #15 capsule 08/10/20 Unknown Rx Famotidine [Pepcid] 20 mg PO BID #14 tablet 08/10/20 Unknown Rx Ipratropium/Albuterol Sulfate 1 ampul IH TIDRT #30 day 08/10/20 Unknown Rx [DUONEB *Not for PRN Use*] hydroCHLOROthiazide [HCTZ] 25 mg PO QDAY tablet 08/10/20 Unknown Rx hydroCHLOROthiazide [HCTZ] 25 mg PO QDAY #30 tablet 08/10/20 Unknown Rx methylPREDNISolone [Medrol 4MG 4 mg PO DAILY #1 tab.ds.pk 08/10/20 Unknown Rx DOSEPAK (21 tabs)] Active Meds: Active Medications Acetaminophen (Acetaminophen 325 Mg Tab) 650 mg PO Q4H PRN PRN Reason: Pain MILD(1-3)/Fever >100.5/BROWN Albuterol (Albuterol 2.5 Mg/3 Ml Nebu) 2.5 mg IH Q4HRT PRN PRN Reason: Shortness Of Breath Albuterol/Ipratropium (Ipratropium/Albuterol Sulfate 3 Ml Ampul.Neb) 1 ampul IH TIDRT [facility] Last Admin: 04/13/21 21:56 Dose: Not Given Documented by: Aspirin (Aspirin Ec 325 Mg Tab) 325 mg PO QDAY [facility] Last Admin: 04/13/21 11:59 Dose: 325 mg Documented by: Atorvastatin Calcium (Atorvastatin 40 Mg Tab) 40 mg PO QHS [facility] Last Admin: 04/12/21 21:04 Dose: 40 mg Documented by: Benzonatate (Benzonatate 100 Mg Cap) 100 mg PO Q8HR [facility] Last Admin: 04/13/21 15:02 Dose: 100 mg Documented by: Famotidine (Famotidine 10 Mg Tab) 10 mg PO BID [facility] Last Admin: 04/13/21 11:03 Dose: 10 mg Documented by: Furosemide (Furosemide 40 Mg Tab) 40 mg PO 0600,1800 [facility] Last Admin: 04/13/21 18:58 Dose: 40 mg Documented by: Guaifenesin (Guaifenesin 100 Mg/5 Ml Oral Liqd) 200 mg PO Q4H PRN PRN Reason: Cough Heparin Sodium (Porcine) (Heparin 5,000 Unit/1 Ml Vial) 5,000 unit SUB-Q Q8HR [facility] Last Admin: 04/13/21 22:37 Dose: 5,000 unit Documented by: Hydromorphone HCl (Hydromorphone 1 Mg/1 Ml Inj) 0.5 mg IV Q3H PRN PRN Reason: Pain , Severe (7-10) Last Admin: 04/13/21 18:57 Dose: 0.5 mg Documented by: Methylprednisolone (Methylprednisolone 4 Mg Tab) 4 mg PO DAILY [facility] Last Admin: 04/13/21 12:00 Dose: 4 mg Documented by: Nitroglycerin (Nitroglycerin 0.4 Mg Tab Subl) 0.4 mg SL Q5M PRN PRN Reason: Chest Pain Nystatin (Nystatin Powder 15 Gm) 1 applic TP BID [facility] Last Admin: 04/13/21 12:05 Dose: 1 applic Documented by: Ondansetron HCl (Ondansetron 4 Mg/2 Ml Inj) 4 mg IV Q8H PRN PRN Reason: Nausea And Vomiting Oxycodone/Acetaminophen (Oxycodone /Acetaminophen 5-325mg Tab) 1 tab PO Q6H PRN PRN Reason: Pain, Moderate (4-6) Last Admin: 04/13/21 01:52 Dose: 1 tab Documented by: Sodium Chloride (Sodium Chloride 0.9% 10 Ml Flush Syringe) 10 ml IV BID [facility] Last Admin: 04/13/21 22:37 Dose: 10 ml Documented by: Sodium Chloride (Sodium Chloride 0.9% 10 Ml Flush Syringe) 10 ml IV PRN PRN PRN Reason: LINE FLUSH Sodium Chloride (Sodium Chloride 1 Gm Tab) 1 gm PO TID [facility] Last Admin: 04/13/21 16:00 Dose: 1 gm Documented by: Tramadol HCl (Tramadol 50 Mg Tab) 50 mg PO Q6H PRN PRN Reason: Pain, Moderate (4-6) Review of Systems All systems: negative Physical Examination Vital signs: Vital Signs Pulse Resp Pulse Ox 116 H 8 L 92 04/07/21 21:41 04/07/21 21:41 04/07/21 21:41 General appearance: lethargic, appears uncomfortable, other (Morbidly Obese on BIPAP.) Eyes: non-icteric ENT: oropharynx moist Neck: supple, no lymphadenopathy, no JVD Effort: mildly labored Ascultation: Bilateral: diminished breath sounds Cardiovascular: regular rate and rhythm Gastrointestinal: normoactive bowel sounds, soft, non-tender Integumentary: decubitus ulcer, other (Stasis dermatititis on legs and abdomen.) Extremities: edema Musculoskeletal: other (Morbidly Obese. can Not move.) Gait: other (Morbidly Obese, Can Not move.) pupils equal and round, unable to assess other (Can not assess.) Results - Laboratory Findings CBC and BMP: 04/15/21 04:55 04/15/21 04:55 ABG ABG pH 7.237 pH Units (7.350-7.450) L 04/13/21 18:40 ABG pCO2 86.9 mm Hg 04/13/21 18:40 ABG pO2 81.8 mm Hg (80.0-90.0) 04/13/21 18:40 ABG O2 Saturation 95.9 % (95.0-99.0) 04/13/21 18:40 Abnormal lab findings: Abnormal Labs 04/07/21 04/07/21 04/08/21 22:04 22:04 00:18 WBC 17.7 H Hgb 9.1 L Hct MCV 77 L MCH 21 L MCHC 27 L RDW 24.3 H Seg Neuts % (Manual) Lymphocytes % (Manual) Nucleated RBC % Seg Neutrophils # Man Lymphocytes # (Manual) Monocytes # (Manual) ABG pH ABG pO2 ABG HCO3 ABG Base Excess ABG Hemoglobin Oxyhemoglobin Sodium 135 L Potassium Chloride 91.0 L Carbon Dioxide 17 L BUN Creatinine 1.4 H Glucose 55 L POC Glucose 49 L Calcium Ionized Calcium Total Creatine Kinase Troponin T 0.043 H NT-Pro-B Natriuret Pep 7573 H LDL Cholesterol Direct 47 L HDL Cholesterol 25 L 04/08/21 04/08/21 04/08/21 04:03 04:03 09:22 WBC 24.3 H Hgb 9.3 L Hct MCV 74 L MCH 21 L MCHC 29 L RDW 23.1 H Seg Neuts % (Manual) 78.0 H Lymphocytes % (Manual) 7.0 L Nucleated RBC % 1.0 H Seg Neutrophils # Man 19.0 H Lymphocytes # (Manual) Monocytes # (Manual) 1.0 H ABG pH ABG pO2 ABG HCO3 ABG Base Excess ABG Hemoglobin Oxyhemoglobin Sodium 134 L Potassium Chloride 91.2 L Carbon Dioxide BUN Creatinine 1.8 H Glucose POC Glucose Calcium Ionized Calcium Total Creatine Kinase Troponin T 0.099 H NT-Pro-B Natriuret Pep LDL Cholesterol Direct HDL Cholesterol 04/08/21 04/08/21 04/09/21 13:03 20:28 04:52 WBC 20.9 H Hgb 8.5 L Hct 30.0 L MCV 73 L MCH 21 L MCHC 28 L RDW 23.9 H Seg Neuts % (Manual) 77.0 H Lymphocytes % (Manual) 1.0 L Nucleated RBC % 1.0 H Seg Neutrophils # Man 16.1 H Lymphocytes # (Manual) 0.2 L Monocytes # (Manual) ABG pH ABG pO2 ABG HCO3 ABG Base Excess ABG Hemoglobin Oxyhemoglobin Sodium Potassium Chloride Carbon Dioxide BUN Creatinine Glucose POC Glucose 115 H Calcium Ionized Calcium Total Creatine Kinase Troponin T 0.078 H D NT-Pro-B Natriuret Pep LDL Cholesterol Direct HDL Cholesterol 04/09/21 04/09/21 04/09/21 04:52 08:46 11:50 WBC Hgb Hct MCV MCH MCHC RDW Seg Neuts % (Manual) Lymphocytes % (Manual) Nucleated RBC % Seg Neutrophils # Man Lymphocytes # (Manual) Monocytes # (Manual) ABG pH ABG pO2 ABG HCO3 ABG Base Excess ABG Hemoglobin Oxyhemoglobin Sodium 129 L Potassium 5.6 H Chloride 88.6 L Carbon Dioxide BUN 27 H Creatinine 2.4 H Glucose 121 H POC Glucose 139 H 156 H Calcium 7.7 L Ionized Calcium Total Creatine Kinase Troponin T NT-Pro-B Natriuret Pep LDL Cholesterol Direct HDL Cholesterol 04/09/21 04/09/21 04/09/21 15:46 16:58 22:08 WBC Hgb Hct MCV MCH MCHC RDW Seg Neuts % (Manual) Lymphocytes % (Manual) Nucleated RBC % Seg Neutrophils # Man Lymphocytes # (Manual) Monocytes # (Manual) ABG pH ABG pO2 ABG HCO3 ABG Base Excess ABG Hemoglobin Oxyhemoglobin Sodium 128 L Potassium 5.5 H Chloride 88.1 L Carbon Dioxide BUN 33 H Creatinine 2.7 H Glucose 172 H POC Glucose 187 H 186 H Calcium 7.3 L Ionized Calcium Total Creatine Kinase Troponin T NT-Pro-B Natriuret Pep LDL Cholesterol Direct HDL Cholesterol 04/09/21 04/10/21 04/10/21 23:15 02:20 07:39 WBC Hgb Hct MCV MCH MCHC RDW Seg Neuts % (Manual) Lymphocytes % (Manual) Nucleated RBC % Seg Neutrophils # Man Lymphocytes # (Manual) Monocytes # (Manual) ABG pH ABG pO2 ABG HCO3 ABG Base Excess ABG Hemoglobin Oxyhemoglobin Sodium 128 L Potassium 5.2 H Chloride 88.6 L Carbon Dioxide BUN 39 H Creatinine 3.1 H Glucose 171 H POC Glucose 168 H Calcium 7.2 L Ionized Calcium 3.6 L Total Creatine Kinase Troponin T NT-Pro-B Natriuret Pep LDL Cholesterol Direct HDL Cholesterol 04/10/21 04/10/21 04/10/21 10:04 11:37 17:18 WBC Hgb Hct MCV MCH MCHC RDW Seg Neuts % (Manual) Lymphocytes % (Manual) Nucleated RBC % Seg Neutrophils # Man Lymphocytes # (Manual) Monocytes # (Manual) ABG pH ABG pO2 ABG HCO3 ABG Base Excess ABG Hemoglobin Oxyhemoglobin Sodium Potassium Chloride Carbon Dioxide BUN Creatinine Glucose POC Glucose 170 H 152 H Calcium Ionized Calcium Total Creatine Kinase 1712 H Troponin T NT-Pro-B Natriuret Pep LDL Cholesterol Direct HDL Cholesterol 04/10/21 04/10/21 04/11/21 19:38 22:02 05:48 WBC Hgb Hct MCV MCH MCHC RDW Seg Neuts % (Manual) Lymphocytes % (Manual) Nucleated RBC % Seg Neutrophils # Man Lymphocytes # (Manual) Monocytes # (Manual) ABG pH ABG pO2 ABG HCO3 ABG Base Excess ABG Hemoglobin Oxyhemoglobin Sodium 128 L 124 L Potassium 5.8 H D Chloride 89.6 L 89.4 L Carbon Dioxide BUN 47 H 53 H Creatinine 3.0 H 2.8 H Glucose 165 H 150 H POC Glucose 147 H Calcium 6.9 L 7.2 L Ionized Calcium Total Creatine Kinase Troponin T NT-Pro-B Natriuret Pep LDL Cholesterol Direct HDL Cholesterol 04/11/21 04/11/21 04/11/21 08:48 11:35 19:12 WBC Hgb Hct MCV MCH MCHC RDW Seg Neuts % (Manual) Lymphocytes % (Manual) Nucleated RBC % Seg Neutrophils # Man Lymphocytes # (Manual) Monocytes # (Manual) ABG pH ABG pO2 ABG HCO3 ABG Base Excess ABG Hemoglobin Oxyhemoglobin Sodium 128 L Potassium Chloride 89.7 L Carbon Dioxide BUN 53 H Creatinine 2.4 H Glucose 159 H POC Glucose 152 H 152 H Calcium 7.1 L Ionized Calcium Total Creatine Kinase Troponin T NT-Pro-B Natriuret Pep LDL Cholesterol Direct HDL Cholesterol 04/11/21 04/12/21 04/12/21 22:03 05:03 07:41 WBC Hgb Hct MCV MCH MCHC RDW Seg Neuts % (Manual) Lymphocytes % (Manual) Nucleated RBC % Seg Neutrophils # Man Lymphocytes # (Manual) Monocytes # (Manual) ABG pH ABG pO2 ABG HCO3 ABG Base Excess ABG Hemoglobin Oxyhemoglobin Sodium 134 L Potassium Chloride 92.9 L Carbon Dioxide 33 H D BUN 54 H Creatinine 2.4 H Glucose 150 H POC Glucose 152 H 144 H Calcium 7.2 L Ionized Calcium Total Creatine Kinase Troponin T NT-Pro-B Natriuret Pep LDL Cholesterol Direct HDL Cholesterol 04/12/21 04/12/21 04/12/21 11:38 14:11 17:02 WBC 14.7 H Hgb 8.7 L Hct 29.8 L MCV 74 L MCH 22 L MCHC 29 L RDW 24.9 H Seg Neuts % (Manual) 86.0 H Lymphocytes % (Manual) 6.0 L Nucleated RBC % Seg Neutrophils # Man 12.6 H Lymphocytes # (Manual) 0.9 L Monocytes # (Manual) ABG pH ABG pO2 ABG HCO3 ABG Base Excess ABG Hemoglobin Oxyhemoglobin Sodium Potassium Chloride Carbon Dioxide BUN Creatinine Glucose POC Glucose 151 H 154 H Calcium Ionized Calcium Total Creatine Kinase Troponin T NT-Pro-B Natriuret Pep LDL Cholesterol Direct HDL Cholesterol 04/12/21 04/13/21 04/13/21 23:14 05:03 10:00 WBC Hgb Hct MCV MCH MCHC RDW Seg Neuts % (Manual) Lymphocytes % (Manual) Nucleated RBC % Seg Neutrophils # Man Lymphocytes # (Manual) Monocytes # (Manual) ABG pH 7.150 L* ABG pO2 91.8 H ABG HCO3 37.2 H ABG Base Excess 7.1 H ABG Hemoglobin 7.1 L Oxyhemoglobin 93.4 L Sodium 134 L Potassium Chloride 91.3 L Carbon Dioxide 33 H BUN 63 H Creatinine 2.2 H Glucose 159 H POC Glucose 151 H Calcium 7.8 L Ionized Calcium Total Creatine Kinase Troponin T NT-Pro-B Natriuret Pep LDL Cholesterol Direct HDL Cholesterol 04/13/21 04/13/21 04/13/21 12:39 16:37 18:40 WBC Hgb Hct MCV MCH MCHC RDW Seg Neuts % (Manual) Lymphocytes % (Manual) Nucleated RBC % Seg Neutrophils # Man Lymphocytes # (Manual) Monocytes # (Manual) ABG pH 7.237 L ABG pO2 ABG HCO3 36.2 H ABG Base Excess 7.4 H ABG Hemoglobin 7.8 L Oxyhemoglobin 93.7 L Sodium Potassium Chloride Carbon Dioxide BUN Creatinine Glucose POC Glucose 140 H 132 H Calcium Ionized Calcium Total Creatine Kinase Troponin T NT-Pro-B Natriuret Pep LDL Cholesterol Direct HDL Cholesterol - Diagnostic Findings Chest x-ray: report reviewed, image reviewed Additional studies: CHEST 1 VIEW 04/12/21 INDICATION / CLINICAL INFORMATION: chest eval. COMPARISON: 04/07/2021 FINDINGS: SUPPORT DEVICES: None. HEART / MEDIASTINUM: Stable. LUNGS / PLEURA: Examination markedly degraded secondary to soft tissue attenuation. No significant interval change in faint bibasilar airspace opacities. No pneumothorax. ADDITIONAL FINDINGS: No significant additional findings. IMPRESSION: Allowing for Limited examination, no change. Assessment and Plan 35 years old female with history of morbid obesity, hypertension, asthma , sleep apnea was brought to the emergency room because of shortness of breath, edema, generalized malaise, fatigue, and weakness for last couple of days. She states she just does not feel well. She has a headache. She states her legs are swollen. She feels as though she is retaining fluid. She states that she went to her regular doctors on the . They tested her for Covid. It was negative. She was told to go see a sawdust drier. She is not seen a sawdust drier as of yet. She came in here because she was not feeling well and did not know what to do. She has had no sick contacts. Patients smoking, alchol or drug history not known at this time. Social history not known at this time. No known drug allergies. In the emergency room patient is found to have acute CHF exacerbation patient proBNP is 7573 also patient cardiac enzyme is elevated troponin is 0.043. Patient blood glucose also 55 patient is hypoglycemic Patient lethergic and sleepy. Patient afebrile. has leukocytosis. Blood pressure 129/77, Pulse 103. Patient is on BIPAP 24/12, rate 20, FIO2 30%. O2 saturation running 98%. Patients chest xray 04/12/21 reported Examination markedly degraded secondary to soft tissue attenuation. No significant interval change in faint bibasilar airspace opacities. No pneumothorax. Patient presently on Albuterol/atrovent aerosol treatments q 6 hours., S/C Heparin, Famotidine, Po medrol. I spent critical care time of 45 minutes, review the chart, examine the patient , Review chest xray, Lab results, talking to the respiratory therapy and nursing staff in this critically ill morbidly obese patient. - Patient Problems (1) Acute respiratory failure with hypoxia and hypercapnia Current Visit: Yes Status: Acute Plan to address problem: BIPAP 24/12, rate 20, FIO2 30% Albuterol/atrovent aerosol treatments. Continue medrol Contibue S/C Heparin. Continue famotidine. (2) Acute exacerbation of CHF (congestive heart failure) Current Visit: Yes Status: Acute Plan to address problem: Management as per cardiology. (3) Hypertension Current Visit: Yes Status: Acute Plan to address problem: Management as per primary care. (4) Morbid obesity with BMI of 70 and over, adult Current Visit: No Status: Acute Plan to address problem: Weight reduction diet. Mobility protocol Fall precautions. (5) Obesity hypoventilation syndrome Current Visit: No Status: Acute Plan to address problem: BIPAP 24/12, rate 20, FIO2 30%. (6) Sleep apnea Current Visit: No Status: Acute Plan to address problem: BIPAP 24/12, rate 20, FIO2 30%. Sleep study if she can as out patient.
[2021-04-14] MEDS: HYDROmorphone 1 MG/1 ML INJ IV PRN (04:16)
[2021-04-14 05:23] LABS: Mean Corpuscular HGB Conc 29 % (30-34); Mean Corpuscular Volume 72 fl (79-97); Platelet Count 294 K/mm3 (140-440); Red Blood Count 4.03 M/mm3 (3.65-5.03)
[2021-04-14] MEDS ORDERED: FUROSEMIDE 20 MG/2 ML INJ IV ONE (05:23)
[2021-04-14] MEDS: HEPARIN 5,000 UNIT/1 ML VIAL SUB-Q SCH ×3 (05:36→21:03)
[2021-04-14 05:43] LABS: Hematocrit 29.1 % (30.3-42.9); Hemoglobin 8.5 gm/dl (10.1-14.3); Red Cell Distribution Width 24.9 % (13.2-15.2)
[2021-04-14 05:46] LABS: Albumin 3.1 g/dL (3.9-5); Calcium 8.1 mg/dL (8.4-10.2)
[2021-04-14] MEDS: FUROSEMIDE 40 MG TAB PO SCH (05:46)
[2021-04-14] MEDS: BENZONATATE 100 MG CAP PO SCH ×3 (05:46→21:02)
--- NOTE | 2021-04-14 10:13 | Progress Note ---
Subjective Date of service: 04/14/21 Principal diagnosis: Acute on chronic renal insufficiency Interval history: Assessment Acute kidney injury, unknown baseline. Renal ultrasound notes poor visualization due to body habitus. Hypervolemic Hyponatremia Hyperkalemia Hypocalcemia Morbid obesity Recommendations Continue diuresis stop Na tabls cr is stable today echo noted, likely diastolic disease rec lasix 40mg po bid at discharge rise in bun noted S/p Kayexalate on admission Maintain MAP more than 65 Hold SUNG/ARB at this time Hold diuretics given soft pressures Renally dose medications Avoid nephrotoxins Renal diet Subjective Date of service: 04/12/21 Principal diagnosis: Acute on chronic renal insufficiency Interval history: Patient was seen for her renal issues Nursing, interdisciplinary and consult notes were reviewed Vitals, input and output, medications and labs were reviewed Remains on NH Objective - Exam Narrative Exam: General: Morbid obesity HEENT: Oral mucosa moist Neck: Supple, no JVD Chest: Clear to auscultation bilaterally Heart: RRR, S1 and S2, no pericardial rub Abdomen: Soft, nontender, no renal bruit Extremity: No peripheral cyanosis, edema Neurological: Awake and alert Dermatology: Unable to assess Psych: Calm and cooperative Musculoskeletal: No joint effusion Objective - Vital Signs Vital signs: Vital Signs - 12hr 04/14/21 04/14/21 04/14/21 00:00 04:00 08:00 Temperature 98.2 F 98.4 F 98 F Pulse Rate [ 108 H From Monitor] O2 Sat by Pulse 99 Oximetry - Lab 04/14/21 04:27 04/14/21 04:27 Most recent lab results ABG pH 7.237 pH Units (7.350-7.450) L 04/13/21 18:40 ABG pCO2 86.9 mm Hg 04/13/21 18:40 ABG pO2 81.8 mm Hg (80.0-90.0) 04/13/21 18:40 ABG HCO3 36.2 mmol/L (20.0-26.0) H 04/13/21 18:40 ABG O2 Saturation 95.9 % (95.0-99.0) 04/13/21 18:40 Calcium 8.1 mg/dL (8.4-10.2) L 04/14/21 04:27 Urine Sodium 16 mmol/L 04/09/21 18:46 Medications & Allergies - Medications Allergies/Adverse Reactions: Allergies No Known Allergies Allergy (Unverified 01/27/17 11:17) Home Medications: Home Medications Medication Instructions Recorded Confirmed Last Taken Type Acetaminophen [Acetaminophen TAB] 325 mg PO Q4H PRN #30 tablet 06/30/17 08/08/20 Unknown Rx ALBUTEROL NEB's [Proventil 0.083% 2.5 mg IH Q3HRT PRN #30 day 08/10/20 Unknown Rx NEBS] Albuterol Mdi (or & Nicu Only) 2 puff IH QID PRN #1 inhalation 08/10/20 Unknown Rx [ProAir HFA Inhaler] Azithromycin [Zithromax Z-BIN] 0 mg PO DAILY #1 tab 08/10/20 Unknown Rx Benzonatate [Tessalon Perles] 100 mg PO Q8HR #15 capsule 08/10/20 Unknown Rx Famotidine [Pepcid] 20 mg PO BID #14 tablet 08/10/20 Unknown Rx Ipratropium/Albuterol Sulfate 1 ampul IH TIDRT #30 day 08/10/20 Unknown Rx [DUONEB *Not for PRN Use*] hydroCHLOROthiazide [HCTZ] 25 mg PO QDAY tablet 08/10/20 Unknown Rx hydroCHLOROthiazide [HCTZ] 25 mg PO QDAY #30 tablet 08/10/20 Unknown Rx methylPREDNISolone [Medrol 4MG 4 mg PO DAILY #1 tab.ds.pk 08/10/20 Unknown Rx DOSEPAK (21 tabs)] Active Medications: Generic Name Dose Route Start Last Admin Trade Name Freq PRN Reason Stop Dose Admin Acetaminophen 650 mg 04/08/21 03:00 Acetaminophen 325 Mg Tab PO Q4H PRN Pain MILD(1-3)/Fever >100.5/BROWN Albuterol 2.5 mg 04/08/21 03:00 Albuterol 2.5 Mg/3 Ml Nebu IH Q4HRT PRN Shortness Of Breath Albuterol/Ipratropium 1 ampul 04/08/21 08:00 04/13/21 21:56 Ipratropium/Albuterol Sulfate 3 Ml Ampul.Neb IH Not Given TIDRT [facility] Aspirin 325 mg 04/09/21 10:00 04/13/21 11:59 Aspirin Ec 325 Mg Tab PO 325 mg QDAY [facility] Administration Atorvastatin Calcium 40 mg 04/08/21 22:00 04/13/21 23:25 Atorvastatin 40 Mg Tab PO Not Given QHS [facility] Benzonatate 100 mg 04/08/21 06:00 04/14/21 05:46 Benzonatate 100 Mg Cap PO Not Given Q8HR [facility] Famotidine 10 mg 04/09/21 22:00 04/13/21 23:25 Famotidine 10 Mg Tab PO Not Given BID [facility] Furosemide 40 mg 04/13/21 18:00 04/14/21 05:46 Furosemide 40 Mg Tab PO Not Given 0600,1800 [facility] Guaifenesin 200 mg 04/12/21 14:47 Guaifenesin 100 Mg/5 Ml Oral Liqd PO Q4H PRN Cough Heparin Sodium (Porcine) 5,000 unit 04/08/21 06:00 04/14/21 05:36 Heparin 5,000 Unit/1 Ml Vial SUB-Q 5,000 unit Q8HR [facility] Administration Hydromorphone HCl 0.5 mg 04/08/21 03:00 04/14/21 04:16 Hydromorphone 1 Mg/1 Ml Inj IV 0.5 mg Q3H PRN Administration Pain , Severe (7-10) Methylprednisolone 4 mg 04/08/21 10:00 04/13/21 12:00 Methylprednisolone 4 Mg Tab PO 4 mg DAILY [facility] Administration Nitroglycerin 0.4 mg 04/08/21 03:00 Nitroglycerin 0.4 Mg Tab Subl SL Q5M PRN Chest Pain Nystatin 1 applic 04/08/21 18:00 04/13/21 23:29 Nystatin Powder 15 Gm TP 1 applic BID [facility] Administration Ondansetron HCl 4 mg 04/08/21 03:00 Ondansetron 4 Mg/2 Ml Inj IV Q8H PRN Nausea And Vomiting Oxycodone/Acetaminophen 1 tab 04/08/21 03:00 04/13/21 01:52 Oxycodone /Acetaminophen 5-325mg Tab PO 1 tab Q6H PRN Administration Pain, Moderate (4-6) Sodium Chloride 10 ml 04/08/21 10:00 04/13/21 22:37 Sodium Chloride 0.9% 10 Ml Flush Syringe IV 10 ml BID [facility] Administration Sodium Chloride 10 ml 04/08/21 03:00 Sodium Chloride 0.9% 10 Ml Flush Syringe IV PRN PRN LINE FLUSH Tramadol HCl 50 mg 04/08/21 03:00 Tramadol 50 Mg Tab PO Q6H PRN Pain, Moderate (4-6)
--- NOTE | 2021-04-14 10:59 | Ultrasound Report ---
LIMITED ABDOMINAL ULTRASOUND HISTORY: Liver failure. COMPARISON: 04/09/2021. TECHNIQUE: Multiple real-time ultrasonographic grayscale images were obtained of the abdomen. FINDINGS: Exam is limited due to patient's body habitus and limited range of motion. Technologist reports these are the best images possible under current conditions. Limited evaluation of liver shows no discrete hepatic lesion. The contour liver appears slightly nodu le which is a nonspecific finding, but can be seen in the setting of cirrhosis. The common bile duct is within normal limits measuring 4.6 mm. The aorta measures up to 2.3 cm within its proximal extent, within normal limits. The gallbladder and right kidney are not well visualized. Free fluid: Minimal ascites detected. Additional findings: None. IMPRESSION: Limited ultrasound of the abdomen without acute findings. The liver is poorly visualized, but appears to demonstrate slightly nodular contour. This is a nonspe cific finding, but can be seen in the setting of cirrhosis. Recommend clinical correlation. Signer Name: Pérez Cha MD Signed: 04/14/2021 10:54 AM Workstation Name: [id number]
--- NOTE | 2021-04-14 11:22 | Progress Note ---
Assessment and Plan Patient is a 35 y/o female with a PMHX of morbid obesity, HTN, COPD NSTEMI type 2 Elevated BNP * Troponins minimally elevated 0.032->0.099->0.078. EKG shows sinus tach 116 with no acute ischemic changes. * BNP noted to be elevated. Currently on Lasix 40mg PO BID * Echo 08/08/2020- Technically very difficult and limited study, due to patient body habitus EF 55 to 60%, left and right atrium are normal in size right ventricular cavity is normal right ventricular global systolic function * Echo 04/08/2021-technically difficult study, contrast used for LV function, EF 55 to 60%, right ventricular systolic function is normal, aortic valve not well visualized Acute Renal insufficiency Hyponatremia * Patient cr 1.8 on admission. * Nephrology following HTN * Patient has been hypotensive. * Hold SUNG/ARB in setting of acute renal insufficiency and hypotension Obesity Hypoventilation Syndrome COPD Acute respiratory failure * Patient trasnferreed to [facility] yesterday and is currently on Bipap * Management per pulmonology Plan: Continue to hold SUNG/ARB, HCTZ in setting of renal insufficiency. No ischemic eval due to patient's due patient's obesity. Cardiac status is stable Patient seen in conjunction with Dr. Carranza who agrees with this plan of care. Will see as needed. - Patient Problems (1) Elevated troponin Current Visit: Yes Status: Acute (2) Acute renal insufficiency Current Visit: Yes Status: Acute (3) COPD (chronic obstructive pulmonary disease) Current Visit: Yes Status: Acute (4) Hypertension Current Visit: Yes Status: Acute (5) Morbid obesity Current Visit: Yes Status: Acute (6) Morbid obesity with BMI of 70 and over, adult Current Visit: No Status: Acute (7) Obesity hypoventilation syndrome Current Visit: No Status: Acute Subjective Date of service: 04/14/21 Principal diagnosis: Acute on chronic renal insufficiency Interval history: Patient transferred to [facility] for respiratory distress yesterday. Patient lying in bed currently on BIpap Sinus 93 with no events on monitor Objective Vital Signs Temp Pulse Pulse Pulse Resp Resp BP 04/14/21 08:00 98 F 04/14/21 04:00 98.4 F 04/14/21 00:00 98.2 F 108 H 04/13/21 22:00 100 H 04/13/21 21:35 97 H 22 120/61 04/13/21 21:20 98.2 F 04/13/21 20:00 100 H 20 04/13/21 18:40 96 H 26 H 04/13/21 15:00 98 H 25 H 04/13/21 14:48 100 H 20 04/13/21 12:00 111 H Pulse Ox 04/14/21 08:00 04/14/21 04:00 04/14/21 00:00 99 04/13/21 22:00 04/13/21 21:35 93 04/13/21 21:20 04/13/21 20:00 04/13/21 18:40 96 04/13/21 15:00 96 04/13/21 14:48 96 04/13/21 12:00 98 - Physical Examination General: No Apparent Distress HEENT: Positive: PERRL Neck: Positive: trachea midline Cardiac: Positive: Reg Rate and Rhythm Lungs: Positive: Decreased Breath Sounds Neuro: Positive: Grossly Intact Abdomen: Positive: Soft Skin: Negative: Rash, Suspicious Lesions, Ulceration Extremities: Present: upper extr. pulses. Absent: edema - Labs and Meds Cardiac Enzymes 04/14/21 Range/Units 04:27 AST 494 H (5-40) units/L CBC 04/14/21 Range/Units 04:27 WBC 10.8 (4.5-11.0) K/mm3 RBC 4.03 (3.65-5.03) M/mm3 Hgb 8.5 L (10.1-14.3) gm/dl Hct 29.1 L (30.3-42.9) % Plt Count 294 (140-440) K/mm3 Comprehensive Metabolic Panel 04/14/21 Range/Units 04:27 Sodium 135 L (137-145) mmol/L Potassium 4.4 (3.6-5.0) mmol/L Chloride 93.5 L (98-107) mmol/L Carbon Dioxide 33 H (22-30) mmol/L BUN 68 H (7-17) mg/dL Creatinine 1.9 H (0.6-1.2) mg/dL Glucose 143 H (65-100) mg/dL Calcium 8.1 L (8.4-10.2) mg/dL AST 494 H (5-40) units/L ALT 835 H (7-56) units/L Alkaline Phosphatase 95 (35-129) units/L Total Protein 9.5 H (6.3-8.2) g/dL Albumin 3.1 L (3.9-5) g/dL - Imaging and Cardiology EKG: report reviewed, image reviewed Echo: report reviewed - Telemetry EKG Rhythm: Sinus Rhythm - EKG Sinus rhythms and dysrhythmias: sinus rhythm Repolarization changes or abnormalities: nonspecific abnormality, ST segment, and/or T wave
[2021-04-14] MEDS: FAMOTIDINE 10 MG TAB PO SCH ×2 (11:31→21:02)
[2021-04-14] MEDS: ASPIRIN EC 325 MG TAB PO SCH (11:31)
--- NOTE | 2021-04-14 11:39 | Progress Note ---
Assessment and Plan Assessment and plan: (1) Non-ST elevation CA (NSTEMI) Current Visit: Yes Status: Acute Plan to address problem: Admit the patient to the medical telemetry. Aspirin 325 mg p.o. daily. Lipitor 40 mg p.o. daily. Nitroglycerin as needed. We do the serial cardiac enzyme. We also consult cardiology for evaluation and order echocardiogram. (2) Acute exacerbation of CHF (congestive heart failure) Current Visit: Yes Status: Acute Plan to address problem: Fluid restriction. Maintain input output. Lasix 40 mg IV every 12 hours. Oxygen via nasal cannula 3 L/min. DuoNeb by nebulizer every 4 hours. Echocardiogram. Cardiology consult (3) Hypertension Current Visit: Yes Status: Acute Plan to address problem: We will continue the home medication. Hydralazine 10 mg IV every 6 hours as needed. We will monitor the blood pressure closely (4) COPD (chronic obstructive pulmonary disease) Current Visit: Yes Status: Acute Plan to address problem: Oxygen by nasal cannula 3 L/min. DuoNeb via nebulizer every 4 hours. Albuterol via nebulizer every 4 hours as needed. (5) Morbid obesity Current Visit: Yes Status: Acute Plan to address problem: We counseled regarding weight reduction. Outpatient follow-up with bariatric surgeon (6) Hyperglycemia Current Visit: Yes Status: Acute Plan to address problem: We will give 1 ampoule of D50. We will put the patient on cardiac diet. We will monitor the blood glucose closely (7) DVT prophylaxis Current Visit: No Status: Acute Plan to address problem: Heparin 5000 units subcu every 8 hours for DVT prophylaxis. Pepcid 20 mg p.o. twice daily for GI prophylaxis. Patient is a full code 04/09 -Patient is on heparin drip for non-STEMI, cardiology is following. -Patient is off Lasix and SUNG inhibitors because of GILBERTO. -Kidney function is worsening overnight and I put a consult for nephrology. -Patient is hypotensive and blood pressure from this morning was 101/41. We will continue to monitor. And if it is dropping we we will give him fluid. -Echo was done and EF of 50 to 55%. Diastolic dysfunction is indeterminate. Management per cardiology -Patient has COPD continues on dexamethasone, nebulizer treatment as needed. -Patient has hyponatremia and hyperkalemia. I give the patient Kayexalate. Monitor electrolytes. Will follow nephrology for additional recommendation. 04/10 -Renal function is worsening, nephrology is following -Blood pressure is better today -Hyperkalemia; I added Kayexalate -Morbid obesity 04/11 -Slight improvement in creatinine. Hyponatremia worsened. Nephrology is following and put the patient back on Lasix. -Blood PRESSURE IS BETTER today -Potassium this morning was 5.8, I ordered 60 g of Kayexalate -Morbidly obese -Obesity hypoventilation syndrome 04/12 -Creatinine is improving and this morning was 2.4 -Hyponatremia improved this morning was 134. Patient is on Lasix -Blood pressure is better -Patient is on 10 L of oxygen; worsened -Morbidly obese, CLAUDIA 04/13: Follow ordered ultrasound of abdomen, per Physician unable to get CT. I ordered an ABG due to my concern about her breathing pattern this morning, patient may benefit from. Will try to establish if patient has a primary pulmonary doctor. ABG is showing consistent with Respiratory Acidosis. Will place on BIPAP now. May need to transfer to [facility] for closer monitoring. Patient likely with Obesity Hypoventilation syndrome. cardiology work up, ongoing. RENAL SHOWING SOME IMPROVEMENT Guarded prognosis 04/14: Patient seen and examined today identified some lesion under the pannus will obtain wound care and wound surgeon evaluation. Nephrology input noted continue diuresis and stop the sodium tabs creatinine is stable. I did discuss with the family and updated them. We will continue to hold SUNG and ARB and if pressures continue to drop may need to hold diuresis also despite as written above. Monitor labs including H&H. She is more awake review of ABG shows improving CO2. Will discuss with case management as patient may need BiPAP on discharge home. I also updated the family History Interval history: Patient seen and examined, More awake, on BIPAP this morning. Noted some bleed overnight, thinking its from the skin under the panus per nursing staff. Hospitalist Physical - Physical exam Narrative exam: VITAL SIGNS: Reviewed. GENERAL: The patient is morbidly obese, more response on BIPAP this morning, Vital signs as documented. HEAD: No signs of head trauma. EYES: Pupils are equal. Extraocular motions intact. EARS: Hearing grossly intact. MOUTH: Oropharynx is normal. NECK: No adenopathy, no JVD. CHEST: Chest with diminished breath sounds bilaterally. No wheezes, rales, or rhonchi. CARDIAC: Regular rate and rhythm. S1 and S2, without murmurs, gallops, or rubs. VASCULAR: No Edema. Peripheral pulses normal and equal in all extremities. ABDOMEN: enlarged pannus, thinkend skin, non tender and non distended. No rebound or guarding, and no masses palpated. Bowel Sounds normal. MUSCULOSKELETAL: Good range of motion of all major joints. Extremities without clubbing, cyanosis or edema. NEUROLOGIC EXAM: Alert and oriented x 3 No focal sensory or strength defi cits. Speech normal. Follows commands. PSYCHIATRIC: Mood normal. SKIN: detail exam as documented in skin assessment - Constitutional Vitals: Temp Pulse Resp BP Pulse Ox 98 F 108 H 22 120/61 99 04/14/21 08:00 04/14/21 00:00 04/13/21 21:35 04/13/21 21:35 04/14/21 00:00 General appearance: Present: no acute distress HEART Score - HEART Score Troponin: Troponin T 0.078 ng/mL (0.00-0.029) H D 04/08/21 13:03 Results - Labs CBC & Chem 7: 04/14/21 04:27 04/14/21 04:27 Labs: Laboratory Last Values WBC 10.8 K/mm3 (4.5-11.0) 04/14/21 04:27 RBC 4.03 M/mm3 (3.65-5.03) 04/14/21 04:27 Hgb 8.5 gm/dl (10.1-14.3) L 04/14/21 04:27 Hct 29.1 % (30.3-42.9) L 04/14/21 04:27 MCV 72 fl (79-97) L 04/14/21 04:27 MCH 21 pg (28-32) L 04/14/21 04:27 MCHC 29 % (30-34) L 04/14/21 04:27 RDW 24.9 % (13.2-15.2) H 04/14/21 04:27 Plt Count 294 K/mm3 (140-440) 04/14/21 04:27 Add Manual Diff Complete 04/12/21 14:11 Total Counted 100 04/12/21 14:11 Seg Neuts % (Manual) 86.0 % (40.0-70.0) H 04/12/21 14:11 Band Neutrophils % 1.0 % 04/12/21 14:11 Lymphocytes % (Manual) 6.0 % (13.4-35.0) L 04/12/21 14:11 Reactive Lymphs % (Man) 1.0 % 04/12/21 14:11 Monocytes % (Manual) 4.0 % (0.0-7.3) 04/12/21 14:11 Metamyelocytes % 2.0 % 04/12/21 14:11 Myelocytes % 2.0 % 04/08/21 04:03 Nucleated RBC % Not Reportable 04/12/21 14:11 Seg Neutrophils # Man 12.6 K/mm3 (1.8-7.7) H 04/12/21 14:11 Band Neutrophils # 0.1 K/mm3 04/12/21 14:11 Lymphocytes # (Manual) 0.9 K/mm3 (1.2-5.4) L 04/12/21 14:11 Abs React Lymphs (Man) 0.1 K/mm3 04/12/21 14:11 Monocytes # (Manual) 0.6 K/mm3 (0.0-0.8) 04/12/21 14:11 Eosinophils # (Manual) 0.0 K/mm3 (0.0-0.4) 04/12/21 14:11 Basophils # (Manual) 0.0 K/mm3 (0.0-0.1) 04/12/21 14:11 Metamyelocytes # 0.3 K/mm3 04/12/21 14:11 Myelocytes # 0.0 K/mm3 04/12/21 14:11 Promyelocytes # 0.0 K/mm3 04/12/21 14:11 Blast Cells # 0.0 K/mm3 04/12/21 14:11 WBC Morphology Not Reportable 04/12/21 14:11 WBC Morphology TNR 04/12/21 14:11 Hypersegmented Neuts Not Reportable 04/12/21 14:11 Hyposegmented Neuts Not Reportable 04/12/21 14:11 Hypogranular Neuts Not Reportable 04/12/21 14:11 Smudge Cells Not Reportable 04/12/21 14:11 Toxic Granulation Not Reportable 04/12/21 14:11 Toxic Vacuolation Not Reportable 04/12/21 14:11 Dohle Bodies Not Reportable 04/12/21 14:11 Pelger-Huet Anomaly Not Reportable 04/12/21 14:11 Ana Cristina Rods Not Reportable 04/12/21 14:11 Platelet Estimate Consistent w auto 04/12/21 14:11 Clumped Platelets Not Reportable 04/12/21 14:11 Plt Clumps, EDTA Not Reportable 04/12/21 14:11 Large Platelets Not Reportable 04/12/21 14:11 Giant Platelets Not Reportable 04/12/21 14:11 Platelet Satelliting Not Reportable 04/12/21 14:11 Plt Morphology Comment Not Reportable 04/12/21 14:11 RBC Morphology Not Reportable 04/12/21 14:11 Dimorphic RBCs Not Reportable 04/12/21 14:11 Polychromasia Few 04/12/21 14:11 Hypochromasia 1+ 04/12/21 14:11 Poikilocytosis Not Reportable 04/12/21 14:11 Anisocytosis Not Reportable 04/12/21 14:11 Microcytosis Not Reportable 04/12/21 14:11 Macrocytosis Not Reportable 04/12/21 14:11 Spherocytes Not Reportable 04/12/21 14:11 Pappenheimer Bodies Not Reportable 04/12/21 14:11 Sickle Cells Not Reportable 04/12/21 14:11 Target Cells 1+ 04/12/21 14:11 Tear Drop Cells Few 04/12/21 14:11 Ovalocytes Not Reportable 04/12/21 14:11 Helmet Cells Not Reportable 04/12/21 14:11 [place] Bodies Not Reportable 04/12/21 14:11 [place] Rings Not Reportable 04/12/21 14:11 [place] Cells Not Reportable 04/12/21 14:11 Bite Cells Not Reportable 04/12/21 14:11 Crenated Cell Not Reportable 04/12/21 14:11 Elliptocytes Not Reportable 04/12/21 14:11 Acanthocytes (Spur) Not Reportable 04/12/21 14:11 Rouleaux Not Reportable 04/12/21 14:11 Hemoglobin C Crystals Not Reportable 04/12/21 14:11 Schistocytes Not Reportable 04/12/21 14:11 Malaria parasites Not Reportable 04/12/21 14:11 Tyshawn Bodies Not Reportable 04/12/21 14:11 Hem Pathologist Commnt No 04/12/21 14:11 ABG pH 7.237 pH Units (7.350-7.450) L 04/13/21 18:40 ABG pCO2 86.9 mm Hg 04/13/21 18:40 ABG pO2 81.8 mm Hg (80.0-90.0) 04/13/21 18:40 ABG HCO3 36.2 mmol/L (20.0-26.0) H 04/13/21 18:40 ABG O2 Saturation 95.9 % (95.0-99.0) 04/13/21 18:40 ABG O2 Content 10.4 (0.0-44) 04/13/21 18:40 ABG Base Excess 7.4 mmol/L (-2.0-3.0) H 04/13/21 18:40 ABG Hemoglobin 7.8 gm/dl (12.0-16.0) L 04/13/21 18:40 ABG Carboxyhemoglobin 1.9 % (0.0-5.0) 04/13/21 18:40 ABG Methemoglobin 0.4 % (0.0-1.5) 04/13/21 18:40 Oxyhemoglobin 93.7 % (95.0-99.0) L 04/13/21 18:40 FiO2 30 % 04/13/21 18:40 Sodium 135 mmol/L (137-145) L 04/14/21 04:27 Potassium 4.4 mmol/L (3.6-5.0) 04/14/21 04:27 Chloride 93.5 mmol/L (98-107) L 04/14/21 04:27 Carbon Dioxide 33 mmol/L (22-30) H 04/14/21 04:27 Anion Gap 13 mmol/L 04/14/21 04:27 BUN 68 mg/dL (7-17) H 04/14/21 04:27 Creatinine 1.9 mg/dL (0.6-1.2) H 04/14/21 04:27 Estimated GFR 37 ml/min 04/14/21 04:27 BUN/Creatinine Ratio 36 % 04/14/21 04:27 Glucose 143 mg/dL (65-100) H 04/14/21 04:27 POC Glucose 105 mg/dL (70-105) 04/14/21 11:28 Osmolality 301 Mosm/kg 04/09/21 23:15 Calcium 8.1 mg/dL (8.4-10.2) L 04/14/21 04:27 Ionized Calcium 3.6 mg/dL (4.8-5.6) L 04/09/21 23:15 Total Bilirubin 1.50 mg/dL (0.1-1.2) H 04/14/21 04:27 AST 494 units/L (5-40) H 04/14/21 04:27 ALT 835 units/L (7-56) H 04/14/21 04:27 Alkaline Phosphatase 95 units/L (35-129) 04/14/21 04:27 Total Creatine Kinase 1712 units/L (30-135) H 04/10/21 10:04 Troponin T 0.078 ng/mL (0.00-0.029) H D 04/08/21 13:03 NT-Pro-B Natriuret Pep 7573 pg/mL (0-450) H 04/07/21 22:04 Total Protein 9.5 g/dL (6.3-8.2) H 04/14/21 04:27 Albumin 3.1 g/dL (3.9-5) L 04/14/21 04:27 Albumin/Globulin Ratio 0.5 % 04/14/21 04:27 Triglycerides 105 mg/dL (2-149) 04/07/21 22:04 Cholesterol 85 mg/dL (50-199) 04/07/21 22:04 LDL Cholesterol Direct 47 mg/dL (50-130) L 04/07/21 22:04 HDL Cholesterol 25 mg/dL (40-59) L 04/07/21 22:04 Cholesterol/HDL Ratio 3.40 % 04/07/21 22:04 Total Cortisol 41.3 mcg/dL () 04/10/21 10:04 Urine Osmolality 157 Mosm/kg 04/09/21 18:46 Urine Sodium 16 mmol/L 04/09/21 18:46 Zambrano/IV: Voiding Method Indwelling Catheter Active Medications - Current Medications Current Medications: Generic Name Dose Route Start Last Admin Trade Name Freq PRN Reason Stop Dose Admin Acetaminophen 650 mg 04/08/21 03:00 Acetaminophen 325 Mg Tab PO Q4H PRN Pain MILD(1-3)/Fever >100.5/BROWN Albuterol 2.5 mg 04/08/21 03:00 Albuterol 2.5 Mg/3 Ml Nebu IH Q4HRT PRN Shortness Of Breath Albuterol/Ipratropium 1 ampul 04/08/21 08:00 04/13/21 21:56 Ipratropium/Albuterol Sulfate 3 Ml Ampul.Neb IH Not Given TIDRT EKATERINA Aspirin 325 mg 04/09/21 10:00 04/14/21 11:31 Aspirin Ec 325 Mg Tab PO 325 mg QDAY EKATERINA Administration Atorvastatin Calcium 40 mg 04/08/21 22:00 04/13/21 23:25 Atorvastatin 40 Mg Tab PO Not Given QHS EKATERINA Benzonatate 100 mg 04/08/21 06:00 04/14/21 05:46 Benzonatate 100 Mg Cap PO Not Given Q8HR [facility] Famotidine 10 mg 04/09/21 22:00 04/14/21 11:31 Famotidine 10 Mg Tab PO 10 mg BID EKATERINA Administration Furosemide 40 mg 04/13/21 18:00 04/14/21 05:46 Furosemide 40 Mg Tab PO Not Given 0600,1800 [facility] Guaifenesin 200 mg 04/12/21 14:47 Guaifenesin 100 Mg/5 Ml Oral Liqd PO Q4H PRN Cough Heparin Sodium (Porcine) 5,000 unit 04/08/21 06:00 04/14/21 05:36 Heparin 5,000 Unit/1 Ml Vial SUB-Q 5,000 unit Q8HR EKATERINA Administration Hydromorphone HCl 0.5 mg 04/08/21 03:00 04/14/21 04:16 Hydromorphone 1 Mg/1 Ml Inj IV 0.5 mg Q3H PRN Administration Pain , Severe (7-10) Methylprednisolone 4 mg 04/08/21 10:00 04/13/21 12:00 Methylprednisolone 4 Mg Tab PO 4 mg DAILY EKATERINA Administration Nitroglycerin 0.4 mg 04/08/21 03:00 Nitroglycerin 0.4 Mg Tab Subl SL Q5M PRN Chest Pain Nystatin 1 applic 04/08/21 18:00 04/13/21 23:29 Nystatin Powder 15 Gm TP 1 applic BID EKATERINA Administration Ondansetron HCl 4 mg 04/08/21 03:00 Ondansetron 4 Mg/2 Ml Inj IV Q8H PRN Nausea And Vomiting Oxycodone/Acetaminophen 1 tab 04/08/21 03:00 04/13/21 01:52 Oxycodone /Acetaminophen 5-325mg Tab PO 1 tab Q6H PRN Administration Pain, Moderate (4-6) Sodium Chloride 10 ml 04/08/21 10:00 04/14/21 11:31 Sodium Chloride 0.9% 10 Ml Flush Syringe IV 10 ml BID EKATERINA Administration Sodium Chloride 10 ml 04/08/21 03:00 Sodium Chloride 0.9% 10 Ml Flush Syringe IV PRN PRN LINE FLUSH Tramadol HCl 50 mg 04/08/21 03:00 Tramadol 50 Mg Tab PO Q6H PRN Pain, Moderate (4-6) Nutrition/Malnutrition Assess - Dietary Evaluation Nutrition/Malnutrition Findings: Nutrition Notes Start: 04/08/21 14:21 Freq: Status: Active Protocol: Document 04/13/21 17:08 GB (Rec: 04/13/21 17:14 GB [id number]) Nutrition Notes Initial or Follow up Reassessment Current Diagnosis Hypertension Other Pertinent Diagnosis Dyspnea, respiratory distress, morbid obesity Current Diet Regular Labs/Tests 04/13: Na 134, BUN 63, creatinine 2.2, glucose 159, Ca 7.8 Pertinent Medications Lasix, NaCl IV flushes Height 5 ft 4 in Weight 287.5 kg Jacobson Body Weight (kg) 54.54 BMI 108.8 Weight change and time frame expect weight fluctuations r/t fluid therapy, CHF complications Weight Status Morbidly Obese Subjective/Other Information Per MD notes 04/13: fluid restrictions, on nasal cannula 3L, possibly obesity hypoventilation syndrome, recommended to bariatric consult Percent of energy/protein needs met: Meals and snacks provided meet 100% of estimated energy needs. Current po intake of meals recorded average 50%. Burn Absent Trauma Absent GI Symptoms None Food Allergy No Current % PO Fair (50-74%) Minimum of two criteria No #1 Nutrition Diagnosis Overweight/obesity Comments: Discussed diet/life style changes using small goal successes to advancement, encouraged outpatient RD counseling at bariatric center Etiology dyspnea, respiratory distress As Evidenced by Signs and Symptoms BMI 103, IBW 498% Diagnosis Progress(for reassessment Continues documentation) Is patient on ventilator? No Is Patient Ambulatory and/or Out of Bed No REE-([facility]-confined to bed) 4277.724 Kcal/Kg value to use for calculation 10 Approximate Energy Requirements Using 2875 kcal/Kg Calculation Used for Recommendations Kcal/kg Additional Notes Protein 0.6 g/kg r/t BMI over 50: 163g Fluids: 1ml/kcal or per MD Nutrition Intervention Change Diet Order: continue with current diet Goal #1 Pt to contact and make appointment with outpatient RD in bariatric center Goal #2 weight to decrease -1% during LOS Follow-Up By: 04/20/21 Additional Comments f/u for weight loss, po intake
--- NOTE | 2021-04-14 11:52 | Progress Note ---
Assessment and Plan 35 years old female with history of morbid obesity, hypertension, asthma , sleep apnea was brought to the emergency room because of shortness of breath, edema, generalized malaise, fatigue, and weakness for last couple of days. She states she just does not feel well. She has a headache. She states her legs are swollen. She feels as though she is retaining fluid. She states that she went to her regular doctors on the . They tested her for Covid. It was negative. She was told to go see a chain saw driver. She is not seen a car diologist as of yet. She came in here because she was not feeling well and did not know what to do. She has had no sick contacts. In the emergency room patient is found to have acute CHF exacerbation patient proBNP is 7573 also patient cardiac enzyme is elevated troponin is 0.043. Patient blood glucose also 55 patient is hypoglycemic Patient awake this morning. Still confused some what. Patient presently on 4 litres O2. O2 saturation 98%. Patient eating. Patient off the BIPAP for eating. Recommend to place her back on BIPAP after finish eating. BIPAP 24/12, rate 20, FIO2 30% stand by in the room. Patient afebrile. No leukocytosis to day. Blood pressure 160/80. pulse 99. Patient is on Albuterol/atrovent aerosol treatments, S/C Heparin, Famotidine and PO Medrol. I spent critical care time of 35 minutes, reviewing the chart, Examine the patient, Review lab results, talking to respiratory therapy and nursing staff and work out plan of treatment in this morbidly Obese, critically ill Patient. - Patient Problems (1) Acute respiratory failure with hypoxia and hypercapnia Current Visit: Yes Status: Acute Plan to address problem: BIPAP 24/12, rate 20, FIO2 30% Albuterol/atrovent aerosol treatments. Continue medrol Contibue S/C Heparin. Continue famotidine. (2) Acute exacerbation of CHF (congestive heart failure) Current Visit: Yes Status: Acute Plan to address problem: Management as per cardiology. (3) Hypertension Current Visit: Yes Status: Acute Plan to address problem: Management as per primary care. (4) Morbid obesity with BMI of 70 and over, adult Current Visit: No Status: Acute Plan to address problem: Weight reduction diet. Mobility protocol Fall precautions. (5) Obesity hypoventilation syndrome Current Visit: No Status: Acute Plan to address problem: BIPAP 24/12, rate 20, FIO2 30%. (6) Sleep apnea Current Visit: No Status: Acute Plan to address problem: BIPAP 24/12, rate 20, FIO2 30%. Sleep study if she can as out patient. Subjective Date of service: 04/14/21 Principal diagnosis: Acute on chronic renal insufficiency Interval history: 35 years old female with history of morbid obesity, hypertension, asthma COPD sleep apnea was brought to the emergency room because of shortness of breath, edema, generalized malaise, fatigue, and weakness for last couple of days. She states she just does not feel well. She has a headache. She states her legs are swollen. She feels as though she is retaining fluid. She states that she went to her regular doctors on the . They tested her for Covid. It was negative. She was told to go see a chain saw driver. She is not seen a chain saw driver as of yet. She came in here because she was not feeling well and did not know what to do. She has had no sick contacts. In the emergency room patient is found to have acute CHF exacerbation patient proBNP is 7573 also patient cardiac enzyme is elevated troponin is 0.043. P atient blood glucose also 55 patient is hypoglycemic Patient awake this morning. Still confused some what. Patient presently on 4 litres O2. O2 saturation 98%. Patient eating. Patient off the BIPAP for eating. Recommend to place her back on BIPAP after finish eating. BIPAP 24/12, rate 20, FIO2 30% stand by in the room. Patient afebrile. No leukocytosis to day. Blood pressure 160/80. pulse 99. Patient is on Albuterol/atrovent aerosol treatments, S/C Heparin, Famotidine and PO Medrol. Objective Vital Signs - 12hr 04/14/21 04/14/21 04/14/21 00:00 04:00 08:00 Temperature 98.2 F 98.4 F 98 F Pulse Rate [ 108 H From Monitor] O2 Sat by Pulse 99 Oximetry Constitutional: no acute distress, alert, other (Morbidly Obese on 4 litres O2.) Eyes: non-icteric ENT: oropharynx moist Neck: supple, no lymphadenopathy, no JVD Effort: mildly labored Ascultation: Bilateral: diminished breath sounds Cardiovascular: regular rate and rhythm Gastrointestinal: normoactive bowel sounds, soft, non-tender Integumentary: decubitus ulcer, other (Stasis dermatititis on legs and abdomen.) Neurologic: pupils equal and round, unable to assess Psychiatric: other (Can not assess.) CBC and BMP: 04/15/21 04:55 04/15/21 04:55 ABG, PT/INR, D-dimer: ABG ABG pH 7.237 pH Units (7.350-7.450) L 04/13/21 18:40 ABG pCO2 86.9 mm Hg 04/13/21 18:40 ABG pO2 81.8 mm Hg (80.0-90.0) 04/13/21 18:40 ABG O2 Saturation 95.9 % (95.0-99.0) 04/13/21 18:40 Abnormal lab findings: Abnormal Labs 04/07/21 04/07/21 04/08/21 22:04 22:04 00:18 WBC 17.7 H Hgb 9.1 L Hct MCV 77 L MCH 21 L MCHC 27 L RDW 24.3 H Seg Neuts % (Manual) Lymphocytes % (Manual) Nucleated RBC % Seg Neutrophils # Man Lymphocytes # (Manual) Monocytes # (Manual) ABG pH ABG pO2 ABG HCO3 ABG Base Excess ABG Hemoglobin Oxyhemoglobin Sodium 135 L Potassium Chloride 91.0 L Carbon Dioxide 17 L BUN Creatinine 1.4 H Glucose 55 L POC Glucose 49 L Calcium Ionized Calcium Total Bilirubin AST ALT Total Creatine Kinase Troponin T 0.043 H NT-Pro-B Natriuret Pep 7573 H Total Protein Albumin LDL Cholesterol Direct 47 L HDL Cholesterol 25 L 04/08/21 04/08/21 04/08/21 04:03 04:03 09:22 WBC 24.3 H Hgb 9.3 L Hct MCV 74 L MCH 21 L MCHC 29 L RDW 23.1 H Seg Neuts % (Manual) 78.0 H Lymphocytes % (Manual) 7.0 L Nucleated RBC % 1.0 H Seg Neutrophils # Man 19.0 H Lymphocytes # (Manual) Monocytes # (Manual) 1.0 H ABG pH ABG pO2 ABG HCO3 ABG Base Excess ABG Hemoglobin Oxyhemoglobin Sodium 134 L Potassium Chloride 91.2 L Carbon Dioxide BUN Creatinine 1.8 H Glucose POC Glucose Calcium Ionized Calcium Total Bilirubin AST ALT Total Creatine Kinase Troponin T 0.099 H NT-Pro-B Natriuret Pep Total Protein Albumin LDL Cholesterol Direct HDL Cholesterol 04/08/21 04/08/21 04/09/21 13:03 20:28 04:52 WBC 20.9 H Hgb 8.5 L Hct 30.0 L MCV 73 L MCH 21 L MCHC 28 L RDW 23.9 H Seg Neuts % (Manual) 77.0 H Lymphocytes % (Manual) 1.0 L Nucleated RBC % 1.0 H Seg Neutrophils # Man 16.1 H Lymphocytes # (Manual) 0.2 L Monocytes # (Manual) ABG pH ABG pO2 ABG HCO3 ABG Base Excess ABG Hemoglobin Oxyhemoglobin Sodium Potassium Chloride Carbon Dioxide BUN Creatinine Glucose POC Glucose 115 H Calcium Ionized Calcium Total Bilirubin AST ALT Total Creatine Kinase Troponin T 0.078 H D NT-Pro-B Natriuret Pep Total Protein Albumin LDL Cholesterol Direct HDL Cholesterol 04/09/21 04/09/21 04/09/21 04:52 08:46 11:50 WBC Hgb Hct MCV MCH MCHC RDW Seg Neuts % (Manual) Lymphocytes % (Manual) Nucleated RBC % Seg Neutrophils # Man Lymphocytes # (Manual) Monocytes # (Manual) ABG pH ABG pO2 ABG HCO3 ABG Base Excess ABG Hemoglobin Oxyhemoglobin Sodium 129 L Potassium 5.6 H Chloride 88.6 L Carbon Dioxide BUN 27 H Creatinine 2.4 H Glucose 121 H POC Glucose 139 H 156 H Calcium 7.7 L Ionized Calcium Total Bilirubin AST ALT Total Creatine Kinase Troponin T NT-Pro-B Natriuret Pep Total Protein Albumin LDL Cholesterol Direct HDL Cholesterol 04/09/21 04/09/21 04/09/21 15:46 16:58 22:08 WBC Hgb Hct MCV MCH MCHC RDW Seg Neuts % (Manual) Lymphocytes % (Manual) Nucleated RBC % Seg Neutrophils # Man Lymphocytes # (Manual) Monocytes # (Manual) ABG pH ABG pO2 ABG HCO3 ABG Base Excess ABG Hemoglobin Oxyhemoglobin Sodium 128 L Potassium 5.5 H Chloride 88.1 L Carbon Dioxide BUN 33 H Creatinine 2.7 H Glucose 172 H POC Glucose 187 H 186 H Calcium 7.3 L Ionized Calcium Total Bilirubin AST ALT Total Creatine Kinase Troponin T NT-Pro-B Natriuret Pep Total Protein Albumin LDL Cholesterol Direct HDL Cholesterol 04/09/21 04/10/2104/10/21 23:15 02:20 07:39 WBC Hgb Hct MCV MCH MCHC RDW Seg Neuts % (Manual) Lymphocytes % (Manual) Nucleated RBC % Seg Neutrophils # Man Lymphocytes # (Manual) Monocytes # (Manual) ABG pH ABG pO2 ABG HCO3 ABG Base Excess ABG Hemoglobin Oxyhemoglobin Sodium 128 L Potassium 5.2 H Chloride 88.6 L Carbon Dioxide BUN 39 H Creatinine 3.1 H Glucose 171 H POC Glucose 168 H Calcium 7.2 L Ionized Calcium 3.6 L Total Bilirubin AST ALT Total Creatine Kinase Troponin T NT-Pro-B Natriuret Pep Total Protein Albumin LDL Cholesterol Direct HDL Cholesterol 04/10/21 04/10/21 04/10/21 10:04 11:37 17:18 WBC Hgb Hct MCV MCH MCHC RDW Seg Neuts % (Manual) Lymphocytes % (Manual) Nucleated RBC % Seg Neutrophils # Man Lymphocytes # (Manual) Monocytes # (Manual) ABG pH ABG pO2 ABG HCO3 ABG Base Excess ABG Hemoglobin Oxyhemoglobin Sodium Potassium Chloride Carbon Dioxide BUN Creatinine Glucose POC Glucose 170 H 152 H Calcium Ionized Calcium Total Bilirubin AST ALT Total Creatine Kinase 1712 H Troponin T NT-Pro-B Natriuret Pep Total Protein Albumin LDL Cholesterol Direct HDL Cholesterol 04/10/21 04/10/21 04/11/21 19:38 22:02 05:48 WBC Hgb Hct MCV MCH MCHC RDW Seg Neuts % (Manual) Lymphocytes % (Manual) Nucleated RBC % Seg Neutrophils # Man Lymphocytes # (Manual) Monocytes # (Manual) ABG pH ABG pO2 ABG HCO3 ABG Base Excess ABG Hemoglobin Oxyhemoglobin Sodium 128 L 124 L Potassium 5.8 H D Chloride 89.6 L 89.4 L Carbon Dioxide BUN 47 H 53 H Creatinine 3.0 H 2.8 H Glucose 165 H 150 H POC Glucose 147 H Calcium 6.9 L 7.2 L Ionized Calcium Total Bilirubin AST ALT Total Creatine Kinase Troponin T NT-Pro-B Natriuret Pep Total Protein Albumin LDL Cholesterol Direct HDL Cholesterol 04/11/21 04/11/21 04/11/21 08:48 11:35 19:12 WBC Hgb Hct MCV MCH MCHC RDW Seg Neuts % (Manual) Lymphocytes % (Manual) Nucleated RBC % Seg Neutrophils # Man Lymphocytes # (Manual) Monocytes # (Manual) ABG pH ABG pO2 ABG HCO3 ABG Base Excess ABG Hemoglobin Oxyhemoglobin Sodium 128 L Potassium Chloride 89.7 L Carbon Dioxide BUN 53 H Creatinine 2.4 H Glucose 159 H POC Glucose 152 H 152 H Calcium 7.1 L Ionized Calcium Total Bilirubin AST ALT Total Creatine Kinase Troponin T NT-Pro-B Natriuret Pep Total Protein Albumin LDL Cholesterol Direct HDL Cholesterol 04/11/21 04/12/21 04/12/21 22:03 05:03 07:41 WBC Hgb Hct MCV MCH MCHC RDW Seg Neuts % (Manual) Lymphocytes % (Manual) Nucleated RBC % Seg Neutrophils # Man Lymphocytes # (Manual) Monocytes # (Manual) ABG pH ABG pO2 ABG HCO3 ABG Base Excess ABG Hemoglobin Oxyhemoglobin Sodium 134 L Potassium Chloride 92.9 L Carbon Dioxide 33 H D BUN 54 H Creatinine 2.4 H Glucose 150 H POC Glucose 152 H 144 H Calcium 7.2 L Ionized Calcium Total Bilirubin AST ALT Total Creatine Kinase Troponin T NT-Pro-B Natriuret Pep Total Protein Albumin LDL Cholesterol Direct HDL Cholesterol 04/12/21 04/12/21 04/12/21 11:38 14:11 17:02 WBC 14.7 H Hgb 8.7 L Hct 29.8 L MCV 74 L MCH 22 L MCHC 29 L RDW 24.9 H Seg Neuts % (Manual) 86.0 H Lymphocytes % (Manual) 6.0 L Nucleated RBC % Seg Neutrophils # Man 12.6 H Lymphocytes # (Manual) 0.9 L Monocytes # (Manual) ABG pH ABG pO2 ABG HCO3 ABG Base Excess ABG Hemoglobin Oxyhemoglobin Sodium Potassium Chloride Carbon Dioxide BUN Creatinine Glucose POC Glucose 151 H 154 H Calcium Ionized Calcium Total Bilirubin AST ALT Total Creatine Kinase Troponin T NT-Pro-B Natriuret Pep Total Protein Albumin LDL Cholesterol Direct HDL Cholesterol 04/12/21 04/13/21 04/13/21 23:14 05:03 10:00 WBC Hgb Hct MCV MCH MCHC RDW Seg Neuts % (Manual) Lymphocytes % (Manual) Nucleated RBC % Seg Neutrophils # Man Lymphocytes # (Manual) Monocytes # (Manual) ABG pH 7.150 L* ABG pO2 91.8 H ABG HCO3 37.2 H ABG Base Excess 7.1 H ABG Hemoglobin 7.1 L Oxyhemoglobin 93.4 L Sodium 134 L Potassium Chloride 91.3 L Carbon Dioxide 33 H BUN 63 H Creatinine 2.2 H Glucose 159 H POC Glucose 151 H Calcium 7.8 L Ionized Calcium Total Bilirubin AST ALT Total Creatine Kinase Troponin T NT-Pro-B Natriuret Pep Total Protein Albumin LDL Cholesterol Direct HDL Cholesterol 04/13/21 04/13/21 04/13/21 12:39 16:37 18:40 WBC Hgb Hct MCV MCH MCHC RDW Seg Neuts % (Manual) Lymphocytes % (Manual) Nucleated RBC % Seg Neutrophils # Man Lymphocytes # (Manual) Monocytes # (Manual) ABG pH 7.237 L ABG pO2 ABG HCO3 36.2 H ABG Base Excess 7.4 H ABG Hemoglobin 7.8 L Oxyhemoglobin 93.7 L Sodium Potassium Chloride Carbon Dioxide BUN Creatinine Glucose POC Glucose 140 H 132 H Calcium Ionized Calcium Total Bilirubin AST ALT Total Creatine Kinase Troponin T NT-Pro-B Natriuret Pep Total Protein Albumin LDL Cholesterol Direct HDL Cholesterol 04/13/21 04/14/21 04/14/21 23:55 04:27 04:27 WBC Hgb 8.5 L Hct 29.1 L MCV 72 L MCH 21 L MCHC 29 L RDW 24.9 H Seg Neuts % (Manual) Lymphocytes % (Manual) Nucleated RBC % Seg Neutrophils # Man Lymphocytes # (Manual) Monocytes # (Manual) ABG pH ABG pO2 ABG HCO3 ABG Base Excess ABG Hemoglobin Oxyhemoglobin Sodium 135 L Potassium Chloride 93.5 L Carbon Dioxide 33 H BUN 68 H Creatinine 1.9 H Glucose 143 H POC Glucose 135 H Calcium 8.1 L Ionized Calcium Total Bilirubin 1.50 H AST 494 H ALT 835 H Total Creatine Kinase Troponin T NT-Pro-B Natriuret Pep Total Protein 9.5 H Albumin 3.1 L LDL Cholesterol Direct HDL Cholesterol
[2021-04-14] MEDS: methylPREDNISolone 4 MG TAB PO SCH (11:56)
--- NOTE | 2021-04-14 15:44 | Consultation ---
History of Present Illness Consult date: 04/14/21 Reason for consult: wound care Chief complaint: Abdominal wound - History of present illness History of present illness: 35-year-old female history of severe morbid obesity, obesity hypoventilation syndrome who was admitted to the hospital with an acute respiratory exacerbation. Patient is being managed in the [facility]. Patient was noted to have bloody drainage from below her pannus today with in the area. Surgery is consulted for evaluation. Patient states she has had a longstanding history of wounds in this area and has not sought out care for this issue. Patient is bedbound. Past History Past Medical History: COPD, hypertension, other (Asthma, morbid obesity, sleep apnea) Social history: no significant social history Family history: CAD, diabetes Medications and Allergies Allergies Allergy/AdvReac Type Severity Reaction Status Date / Time No Known Allergies Allergy Unverified 01/27/17 11:17 Home Medications Medication Instructions Recorded Confirmed Last Taken Type Acetaminophen [Acetaminophen TAB] 325 mg PO Q4H PRN #30 tablet 06/30/17 08/08/20 Unknown Rx ALBUTEROL NEB's [Proventil 0.083% 2.5 mg IH Q3HRT PRN #30 day 08/10/20 Unknown Rx NEBS] Albuterol Mdi (or & Nicu Only) 2 puff IH QID PRN #1 inhalation 08/10/20 Unknown Rx [ProAir HFA Inhaler] Azithromycin [Zithromax Z-BIN] 0 mg PO DAILY #1 tab 08/10/20 Unknown Rx Benzonatate [Tessalon Perles] 100 mg PO Q8HR #15 capsule 08/10/20 Unknown Rx Famotidine [Pepcid] 20 mg PO BID #14 tablet 08/10/20 Unknown Rx Ipratropium/Albuterol Sulfate 1 ampul IH TIDRT #30 day 08/10/20 Unknown Rx [DUONEB *Not for PRN Use*] hydroCHLOROthiazide [HCTZ] 25 mg PO QDAY tablet 08/10/20 Unknown Rx hydroCHLOROthiazide [HCTZ] 25 mg PO QDAY #30 tablet 08/10/20 Unknown Rx methylPREDNISolone [Medrol 4MG 4 mg PO DAILY #1 tab.ds.pk 08/10/20 Unknown Rx DOSEPAK (21 tabs)] Active Meds: Active Medications Acetaminophen (Acetaminophen 325 Mg Tab) 650 mg PO Q4H PRN PRN Reason: Pain MILD(1-3)/Fever >100.5/BROWN Albuterol (Albuterol 2.5 Mg/3 Ml Nebu) 2.5 mg IH Q4HRT PRN PRN Reason: Shortness Of Breath Albuterol/Ipratropium (Ipratropium/Albuterol Sulfate 3 Ml Ampul.Neb) 1 ampul IH TIDRT [facility] Last Admin: 04/13/21 21:56 Dose: Not Given Documented by: Aspirin (Aspirin Ec 325 Mg Tab) 325 mg PO QDAY [facility] Last Admin: 04/14/21 11:31 Dose: 325 mg Documented by: Atorvastatin Calcium (Atorvastatin 40 Mg Tab) 40 mg PO QHS [facility] Last Admin: 04/13/21 23:25 Dose: Not Given Documented by: Benzonatate (Benzonatate 100 Mg Cap) 100 mg PO Q8HR [facility] Last Admin: 04/14/21 14:32 Dose: 100 mg Documented by: Famotidine (Famotidine 10 Mg Tab) 10 mg PO BID [facility] Last Admin: 04/14/21 11:31 Dose: 10 mg Documented by: Furosemide (Furosemide 40 Mg Tab) 40 mg PO 0600,1800 [facility] Last Admin: 04/14/21 05:46 Dose: Not Given Documented by: Guaifenesin (Guaifenesin 100 Mg/5 Ml Oral Liqd) 200 mg PO Q4H PRN PRN Reason: Cough Heparin Sodium (Porcine) (Heparin 5,000 Unit/1 Ml Vial) 5,000 unit SUB-Q Q8HR [facility] Last Admin: 04/14/21 14:32 Dose: 5,000 unit Documented by: Hydromorphone HCl (Hydromorphone 1 Mg/1 Ml Inj) 0.5 mg IV Q3H PRN PRN Reason: Pain , Severe (7-10) Last Admin: 04/14/21 04:16 Dose: 0.5 mg Documented by: Methylprednisolone (Methylprednisolone 4 Mg Tab) 4 mg PO DAILY [facility] Last Admin: 04/14/21 11:56 Dose: 4 mg Documented by: Nitroglycerin (Nitroglycerin 0.4 Mg Tab Subl) 0.4 mg SL Q5M PRN PRN Reason: Chest Pain Nystatin (Nystatin Powder 15 Gm) 1 applic TP BID [facility] Last Admin: 04/13/21 23:29 Dose: 1 applic Documented by: Ondansetron HCl (Ondansetron 4 Mg/2 Ml Inj) 4 mg IV Q8H PRN PRN Reason: Nausea And Vomiting Oxycodone/Acetaminophen (Oxycodone /Acetaminophen 5-325mg Tab) 1 tab PO Q6H PRN PRN Reason: Pain, Moderate (4-6) Last Admin: 04/13/21 01:52 Dose: 1 tab Documented by: Sodium Chloride (Sodium Chloride 0.9% 10 Ml Flush Syringe) 10 ml IV BID [facility] Last Admin: 04/14/21 11:31 Dose: 10 ml Documented by: Sodium Chloride (Sodium Chloride 0.9% 10 Ml Flush Syringe) 10 ml IV PRN PRN PRN Reason: LINE FLUSH Tramadol HCl (Tramadol 50 Mg Tab) 50 mg PO Q6H PRN PRN Reason: Pain, Moderate (4-6) Review of Systems All systems: negative (10 point ROS performed and negative except for that listed in HPI) Exam Vital Signs Pulse Resp Pulse Ox 116 H 8 L 92 04/07/21 21:41 04/07/21 21:41 04/07/21 21:41 Narrative exam: Gen.: Awake, alert, oriented x3. No apparent distress ENT: Trachea midline. No lymphadenopathy. No scleral icterus or conjunctival pallor CV: S1, S2 present Respiratory: No audible wheezes Abdomen: Soft, obese, nontender. There is severe lymphedema involving the lower aspect of the abdominal wall, large pannus. There are 2 wounds of the skin at under the pannus towards the left of the midline. The wound beds are pink with minimal hyper granulation tissue. There is serous drainage from the area of lym phedema. No obvious signs of infection. Both wounds were packed with 1 piece of Mesalt packing. A calcium alginate pad was placed over the area of serous drainage and covered with an ABD pad. The pannus was elevated with a rolled up towel. Extremities: No clubbing, cyanosis, edema Results - Labs 04/14/21 04:27 04/14/21 04:27 Abnormal lab results 04/13/21 04/13/21 04/13/21 Range/Units 16:37 18:40 23:55 Hgb (10.1-14.3) gm/dl Hct (30.3-42.9) % MCV (79-97) fl MCH (28-32) pg MCHC (30-34) % RDW (13.2-15.2) % ABG pH 7.237 L (7.350-7.450) pH Units ABG HCO3 36.2 H (20.0-26.0) mmol/L ABG Base Excess 7.4 H (-2.0-3.0) mmol/L ABG Hemoglobin 7.8 L (12.0-16.0) gm/dl Oxyhemoglobin 93.7 L (95.0-99.0) % Sodium (137-145) mmol/L Chloride (98-107) mmol/L Carbon Dioxide (22-30) mmol/L BUN (7-17) mg/dL Creatinine (0.6-1.2) mg/dL Glucose (65-100) mg/dL POC Glucose 132 H 135 H (70-105) mg/dL Calcium (8.4-10.2) mg/dL Total Bilirubin (0.1-1.2) mg/dL AST (5-40) units/L ALT (7-56) units/L Total Protein (6.3-8.2) g/dL Albumin (3.9-5) g/dL 04/14/21 04/14/21 Range/Units 04:27 04:27 Hgb 8.5 L (10.1-14.3) gm/dl Hct 29.1 L (30.3-42.9) % MCV 72 L (79-97) fl MCH 21 L (28-32) pg MCHC 29 L (30-34) % RDW 24.9 H (13.2-15.2) % ABG pH (7.350-7.450) pH Units ABG HCO3 (20.0-26.0) mmol/L ABG Base Excess (-2.0-3.0) mmol/L ABG Hemoglobin (12.0-16.0) gm/dl Oxyhemoglobin (95.0-99.0) % Sodium 135 L (137-145) mmol/L Chloride 93.5 L (98-107) mmol/L Carbon Dioxide 33 H (22-30) mmol/L BUN 68 H (7-17) mg/dL Creatinine 1.9 H (0.6-1.2) mg/dL Glucose 143 H (65-100) mg/dL POC Glucose (70-105) mg/dL Calcium 8.1 L (8.4-10.2) mg/dL Total Bilirubin 1.50 H (0.1-1.2) mg/dL AST 494 H (5-40) units/L ALT 835 H (7-56) units/L Total Protein 9.5 H (6.3-8.2) g/dL Albumin 3.1 L (3.9-5) g/dL Diabetes panel 04/14/21 Range/Units 04:27 Sodium 135 L (137-145) mmol/L Potassium 4.4 (3.6-5.0) mmol/L Chloride 93.5 L (98-107) mmol/L Carbon Dioxide 33 H (22-30) mmol/L BUN 68 H (7-17) mg/dL Creatinine 1.9 H (0.6-1.2) mg/dL Glucose 143 H (65-100) mg/dL Calcium 8.1 L (8.4-10.2) mg/dL AST 494 H (5-40) units/L ALT 835 H (7-56) units/L Alkaline Phosphatase 95 (35-129) units/L Total Protein 9.5 H (6.3-8.2) g/dL Albumin 3.1 L (3.9-5) g/dL Calcium panel 04/14/21 Range/Units 04:27 Calcium 8.1 L (8.4-10.2) mg/dL Albumin 3.1 L (3.9-5) g/dL Pituitary panel 04/14/21 Range/Units 04:27 Sodium 135 L (137-145) mmol/L Potassium 4.4 (3.6-5.0) mmol/L Chloride 93.5 L (98-107) mmol/L Carbon Dioxide 33 H (22-30) mmol/L BUN 68 H (7-17) mg/dL Creatinine 1.9 H (0.6-1.2) mg/dL Glucose 143 H (65-100) mg/dL Calcium 8.1 L (8.4-10.2) mg/dL Adrenal panel 04/14/21 Range/Units 04:27 Sodium 135 L (137-145) mmol/L Potassium 4.4 (3.6-5.0) mmol/L Chloride 93.5 L (98-107) mmol/L Carbon Dioxide 33 H (22-30) mmol/L BUN 68 H (7-17) mg/dL Creatinine 1.9 H (0.6-1.2) mg/dL Glucose 143 H (65-100) mg/dL Calcium 8.1 L (8.4-10.2) mg/dL Total Bilirubin 1.50 H (0.1-1.2) mg/dL AST 494 H (5-40) units/L ALT 835 H (7-56) units/L Alkaline Phosphatase 95 (35-129) units/L Total Protein 9.5 H (6.3-8.2) g/dL Albumin 3.1 L (3.9-5) g/dL Assessment and Plan 35-year-old female with 1. Super morbid obesity 2. Lymphedema of abdominal wall 3. Open wound of abdominal wall without penetration into abdominal cavity Plan: 1. Pack wounds daily with mesalt. Need to maintain dry environment 2. Elevate pannus 3. Optimize nutrition Guarded prognosis for wound healing due to body habitus and location of wounds. No acute surgical intervention. Thank you for this consultation. Please call with any questions or concerns. Evaluation and treatment of this patient was during the time of the national and state emergency arising from COVID19 coronavirus pandemic. Treatment and procedures performed meet the current and available best practice and guidelines for patient during the COVID pandemic.
[2021-04-14] MEDS: NYSTATIN POWDER 15 GM TP SCH ×2 (16:47→21:02)
--- NOTE | 2021-04-14 16:49 | Gastroenterology Consultation ---
History of Present Illness - Reason for Consult Consult date: 04/14/21 abnormal liver enzymes Requesting physician: JOSE ALEJANDRO MOORE - History of Present Illness The patient is a 35 yo female with extensive medical history including cad, sanchez, morbid obesity, and copd presenting with sob/respiratory failure and also found to have nstemi and chf exacerbation. pt is on bipap in the ICU. she does not provide history at the time of exam. GI consulted for abnormal liver enzymes (primarily hepatocellular pattern) which is new compared to previous levels earlier in the year. Past History Past Medical History: COPD, hypertension, other (Asthma, morbid obesity, sleep apnea) Social history: no significant social history Family history: CAD, diabetes Medications and Allergies Allergies Allergy/AdvReac Type Severity Reaction Status Date / Time No Known Allergies Allergy Unverified 01/27/17 11:17 Home Medications Medication Instructions Recorded Confirmed Last Taken Type Acetaminophen [Acetaminophen TAB] 325 mg PO Q4H PRN #30 tablet 06/30/17 08/08/20 Unknown Rx ALBUTEROL NEB's [Proventil 0.083% 2.5 mg IH Q3HRT PRN #30 day 08/10/20 Unknown Rx NEBS] Albuterol Mdi (or & Nicu Only) 2 puff IH QID PRN #1 inhalation 08/10/20 Unknown Rx [ProAir HFA Inhaler] Azithromycin [Zithromax Z-BIN] 0 mg PO DAILY #1 tab 08/10/20 Unknown Rx Benzonatate [Tessalon Perles] 100 mg PO Q8HR #15 capsule 08/10/20 Unknown Rx Famotidine [Pepcid] 20 mg PO BID #14 tablet 08/10/20 Unknown Rx Ipratropium/Albuterol Sulfate 1 ampul IH TIDRT #30 day 08/10/20 Unknown Rx [DUONEB *Not for PRN Use*] hydroCHLOROthiazide [HCTZ] 25 mg PO QDAY tablet 08/10/20 Unknown Rx hydroCHLOROthiazide [HCTZ] 25 mg PO QDAY #30 tablet 08/10/20 Unknown Rx methylPREDNISolone [Medrol 4MG 4 mg PO DAILY #1 tab.ds.pk 08/10/20 Unknown Rx DOSEPAK (21 tabs)] Active Meds: Active Medications Acetaminophen (Acetaminophen 325 Mg Tab) 650 mg PO Q4H PRN PRN Reason: Pain MILD(1-3)/Fever >100.5/BROWN Albuterol (Albuterol 2.5 Mg/3 Ml Nebu) 2.5 mg IH Q4HRT PRN PRN Reason: Shortness Of Breath Albuterol/Ipratropium (Ipratropium/Albuterol Sulfate 3 Ml Ampul.Neb) 1 ampul IH TIDRT [facility] Last Admin: 04/13/21 21:56 Dose: Not Given Documented by: Aspirin (Aspirin Ec 325 Mg Tab) 325 mg PO QDAY [facility] Last Admin: 04/14/21 11:31 Dose: 325 mg Documented by: Atorvastatin Calcium (Atorvastatin 40 Mg Tab) 40 mg PO QHS [facility] Last Admin: 04/13/21 23:25 Dose: Not Given Documented by: Benzonatate (Benzonatate 100 Mg Cap) 100 mg PO Q8HR [facility] Last Admin: 04/14/21 14:32 Dose: 100 mg Documented by: Famotidine (Famotidine 10 Mg Tab) 10 mg PO BID [facility] Last Admin: 04/14/21 11:31 Dose: 10 mg Documented by: Furosemide (Furosemide 40 Mg Tab) 40 mg PO 0600,1800 [facility] Last Admin: 04/14/21 05:46 Dose: Not Given Documented by: Guaifenesin (Guaifenesin 100 Mg/5 Ml Oral Liqd) 200 mg PO Q4H PRN PRN Reason: Cough Heparin Sodium (Porcine) (Heparin 5,000 Unit/1 Ml Vial) 5,000 unit SUB-Q Q8HR [facility] Last Admin: 04/14/21 14:32 Dose: 5,000 unit Documented by: Hydromorphone HCl (Hydromorphone 1 Mg/1 Ml Inj) 0.5 mg IV Q3H PRN PRN Reason: Pain , Severe (7-10) Last Admin: 04/14/21 04:16 Dose: 0.5 mg Documented by: Methylprednisolone (Methylprednisolone 4 Mg Tab) 4 mg PO DAILY [facility] Last Admin: 04/14/21 11:56 Dose: 4 mg Documented by: Nitroglycerin (Nitroglycerin 0.4 Mg Tab Subl) 0.4 mg SL Q5M PRN PRN Reason: Chest Pain Nystatin (Nystatin Powder 15 Gm) 1 applic TP BID [facility] Last Admin: 04/14/21 16:47 Dose: 1 applic Documented by: Ondansetron HCl (Ondansetron 4 Mg/2 Ml Inj) 4 mg IV Q8H PRN PRN Reason: Nausea And Vomiting Oxycodone/Acetaminophen (Oxycodone /Acetaminophen 5-325mg Tab) 1 tab PO Q6H PRN PRN Reason: Pain, Moderate (4-6) Last Admin: 04/13/21 01:52 Dose: 1 tab Documented by: Sodium Chloride (Sodium Chloride 0.9% 10 Ml Flush Syringe) 10 ml IV BID [facility] Last Admin: 04/14/21 11:31 Dose: 10 ml Documented by: Sodium Chloride (Sodium Chloride 0.9% 10 Ml Flush Syringe) 10 ml IV PRN PRN PRN Reason: LINE FLUSH Tramadol HCl (Tramadol 50 Mg Tab) 50 mg PO Q6H PRN PRN Reason: Pain, Moderate (4-6) reviewed/updated patient's home and current medications Review of Systems - Review of Systems ROS unobtainable: due to mental status Exam - Constitutional Vital Signs: Temp Pulse Resp BP Pulse Ox 98 F 97 H 16 120/61 100 04/14/21 16:00 04/14/21 12:00 04/14/21 12:00 04/13/21 21:35 04/14/21 12:00 General appearance: obese - Respiratory Respiratory effort: labored Respiratory: bilateral: diminished - Cardiovascular Rhythm: regular Heart Sounds: Present: S1 & S2 - Gastrointestinal General gastrointestinal: Present: other (obese, nt) - Labs CBC & Chem 7: 04/14/21 04:27 04/14/21 04:27 Lab Results: Laboratory Results - last 24 hr 04/10/21 04/13/21 04/13/21 10:04 18:40 23:55 WBC RBC Hgb Hct MCV MCH MCHC RDW Plt Count ABG pH 7.237 L ABG pCO2 86.9 ABG pO2 81.8 ABG HCO3 36.2 H ABG O2 Saturation 95.9 ABG O2 Content 10.4 ABG Base Excess 7.4 H ABG Hemoglobin 7.8 L ABG Carboxyhemoglobin 1.9 ABG Methemoglobin 0.4 Oxyhemoglobin 93.7 L FiO2 30 Sodium Potassium Chloride Carbon Dioxide Anion Gap BUN Creatinine Estimated GFR BUN/Creatinine Ratio Glucose POC Glucose 135 H Calcium Total Bilirubin AST ALT Alkaline Phosphatase Total Protein Albumin Albumin/Globulin Ratio Total Cortisol 41.3 Coronavirus (PCR) 04/14/21 04/14/21 04/14/21 04:27 04:27 11:28 WBC 10.8 RBC 4.03 Hgb 8.5 L Hct 29.1 L MCV 72 L MCH 21 L MCHC 29 L RDW 24.9 H Plt Count 294 ABG pH ABG pCO2 ABG pO2 ABG HCO3 ABG O2 Saturation ABG O2 Content ABG Base Excess ABG Hemoglobin ABG Carboxyhemoglobin ABG Methemoglobin Oxyhemoglobin FiO2 Sodium 135 L Potassium 4.4 Chloride 93.5 L Carbon Dioxide 33 H Anion Gap 13 BUN 68 H Creatinine 1.9 H Estimated GFR 37 BUN/Creatinine Ratio 36 Glucose 143 H POC Glucose 105 Calcium 8.1 L Total Bilirubin 1.50 H AST 494 H ALT 835 H Alkaline Phosphatase 95 Total Protein 9.5 H Albumin 3.1 L Albumin/Globulin Ratio 0.5 Total Cortisol Coronavirus (PCR) 04/14/21 Unknown WBC RBC Hgb Hct MCV MCH MCHC RDW Plt Count ABG pH ABG pCO2 ABG pO2 ABG HCO3 ABG O2 Saturation ABG O2 Content ABG Base Excess ABG Hemoglobin ABG Carboxyhemoglobin ABG Methemoglobin Oxyhemoglobin FiO2 Sodium Potassium Chloride Carbon Dioxide Anion Gap BUN Creatinine Estimated GFR BUN/Creatinine Ratio Glucose POC Glucose Calcium Total Bilirubin AST ALT Alkaline Phosphatase Total Protein Albumin Albumin/Globulin Ratio Total Cortisol Coronavirus (PCR) Negative Assessment and Plan 1. Abnormal liver enzymes in hepatocellular pattern. broad ddx and likely multifactorial causes including NAFLD, congestive hepatopathy, possibly DILI. will check viral hep serologies. US with limited views, possible coarsening of the liver. cont to trend labs
[2021-04-14] MEDS: IPRATROPIUM/ALBUTEROL SULFATE 3 ML AMPUL.NEB IH SCH (18:03)
[2021-04-14 20:02] LABS: Hepatitis C Virus Antibody Non-Reactive (NonReactive)
[2021-04-15] MEDS: IPRATROPIUM/ALBUTEROL SULFATE 3 ML AMPUL.NEB IH SCH ×4 (00:18→22:27)
[2021-04-15 05:09] LABS: Mean Corpuscular HGB Conc 30 % (30-34); Platelet Count 301 K/mm3 (140-440); Red Blood Count 3.89 M/mm3 (3.65-5.03)
[2021-04-15 05:10] LABS: Hematocrit 27.1 % (30.3-42.9); Mean Corpuscular Volume 70 fl (79-97); Red Cell Distribution Width 24.3 % (13.2-15.2)
[2021-04-15 05:33] LABS: Albumin 2.9 g/dL (3.9-5); Calcium 8.3 mg/dL (8.4-10.2)
[2021-04-15] MEDS: FUROSEMIDE 40 MG TAB PO SCH ×3 (05:43→17:22)
[2021-04-15] MEDS: HEPARIN 5,000 UNIT/1 ML VIAL SUB-Q SCH ×3 (05:44→22:16)
[2021-04-15] MEDS: BENZONATATE 100 MG CAP PO SCH ×3 (05:44→22:16)
--- NOTE | 2021-04-15 08:32 | Progress Note ---
Assessment and Plan Assessment and plan: (1) Non-ST elevation PA (NSTEMI) type II Procardia Current Visit: Yes Status: Acute Plan to address problem: Admit the patient to the medical telemetry. Aspirin 325 mg p.o. daily. Lipitor 40 mg p.o. daily. Nitroglycerin as needed. We do the serial cardiac enzyme. We also consult cardiology for evaluation and order echocardiogram. (2) Acute exacerbation of CHF (congestive heart failure) Current Visit: Yes Status: Acute Plan to address problem: Fluid restriction. Maintain input output. Lasix 40 mg IV every 12 hours. Oxygen via nasal cannula 3 L/min. DuoNeb by nebulizer every 4 hours. Echocardiogram. Cardiology consult (3) Hypertension Current Visit: Yes Status: Acute Plan to address problem: We will continue the home medication. Hydralazine 10 mg IV every 6 hours as needed. We will monitor the blood pressure closely (4) COPD (chronic obstructive pulmonary disease) Current Visit: Yes Status: Acute Plan to address problem: Oxygen by nasal cannula 3 L/min. DuoNeb via nebulizer every 4 hours. Albuterol via nebulizer every 4 hours as needed. Super (5) Morbid obesity Current Visit: Yes Status: Acute Plan to address problem: We counseled regarding weight reduction. Outpatient follow-up with bariatric surgeon (6) Hyperglycemia Current Visit: Yes Status: Acute Plan to address problem: We will give 1 ampoule of D50. We will put the patient on cardiac diet. We will monitor the blood glucose closely (7) acute kidney injury with vasomotor nephropathy (8) Lymphedema of the abdominal wall (9)Anemia of chronic disease (10)Possible passive congestive hepatic failure with underlying NAFLD (11) DVT prophylaxis Current Visit: No Status: Acute Plan to address problem: Heparin 5000 units subcu every 8 hours for DVT prophylaxis. Pepcid 20 mg p.o. twice daily for GI prophylaxis. Patient is a full code 04/09 -Patient is on heparin drip for non-STEMI, cardiology is following. -Patient is off Lasix and SUNG inhibitors because of GILBERTO. -Kidney function is worsening overnight and I put a consult for nephrology. -Patient is hypotensive and blood pressure from this morning was 101/41. We will continue to monitor. And if it is dropping we we will give him fluid. -Echo was done and EF of 50 to 55%. Diastolic dysfunction is indeterminate. Management per cardiology -Patient has COPD continues on dexamethasone, nebulizer treatment as needed. -Patient has hyponatremia and hyperkalemia. I give the patient Kayexalate. Monitor electrolytes. Will follow nephrology for additional recommendation. 04/10 -Renal function is worsening, nephrology is following -Blood pressure is better today -Hyperkalemia; I added Kayexalate -Morbid obesity 04/11 -Slight improvement in creatinine. Hyponatremia worsened. Nephrology is following and put the patient back on Lasix. -Blood PRESSURE IS BETTER today -Potassium this morning was 5.8, I ordered 60 g of Kayexalate -Morbidly obese -Obesity hypoventilation syndrome 04/12 -Creatinine is improving and this morning was 2.4 -Hyponatremia improved this morning was 134. Patient is on Lasix -Blood pressure is better -Patient is on 10 L of oxygen; worsened -Morbidly obese, CLAUDIA 04/13: Follow ordered ultrasound of abdomen, per Physician unable to get CT. I ordered an ABG due to my concern about her breathing pattern this morning, patient may benefit from. Will try to establish if patient has a primary pulmonary doctor. ABG is showing consistent with Respiratory Acidosis. Will place on BIPAP now. May need to transfer to IMCU for closer monitoring. Patient likely with Obesity Hypoventilation syndrome. cardiology work up, ongoing. RENAL SHOWING SOME IMPROVEMENT Guarded prognosis 04/14: Patient seen and examined today identified some lesion under the pannus will obtain wound care and wound surgeon evaluation. Nephrology input noted continue diuresis and stop the sodium tabs creatinine is stable. I did discuss with the family and updated them. We will continue to hold SUNG and ARB and if pressures continue to drop may need to hold diuresis also despite as written above. Monitor labs including H&H. She is more awake review of ABG shows improving CO2. Will discuss with case management as patient may need BiPAP on discharge home. I also updated the family 04/15: Patient showing some clinical improvement. Liver enzymes is showing mild improvement although bilirubin increased slightly. GI input noted and as discussed by his notes below "Abnormal liver enzymes in hepatocellular pattern. broad ddx and likely multifactorial causes including NAFLD, congestive hepatopathy, possibly DILI. will check viral hep serologies. US with limited views, possible coarsening of the liver" Patient also evaluated by surgery noted with the lymphedema of abdominal wall and open wound of the abdominal wall without penetration into the abdominal cavity with recommendation to pack the wounds daily with mesalt. Need to maintain dry environment discussed with nursing staff. Elevate the pannus and optimize nutrition for which I will get nutritional consult. No surgical intervention at this time. Patient is bedbound when I asked when last she ambulated she said while "I guess he has not worked" but it has been a while. Unfortunately the LTAC center unwilling to accept the patient will discuss with pulmonary and with case management about obtaining BiPAP for this patient and possible SNF referral. History Interval history: Patient seen and examined, More awake, tolerating p.o. intake. Nurse reports that patient refused BiPAP or had taken of the mask in the middle of the night. Reinforced the importance of this with the patient she verbalized understanding 15 minutes counseling provided Hospitalist Physical - Physical exam Narrative exam: VITAL SIGNS: Reviewed. GENERAL: The patient is morbidly obese, more response on BIPAP this morning, Vital signs as documented. HEAD: No signs of head trauma. EYES: Pupils are equal. Extraocular motions intact. EARS: Hearing grossly intact. MOUTH: Oropharynx is normal. NECK: No adenopathy, no JVD. CHEST: Chest with diminished breath sounds bilaterally. No wheezes, rales, or rhonchi. CARDIAC: Regular rate and rhythm. S1 and S2, without murmurs, gallops, or rubs. VASCULAR: No Edema. Peripheral pulses normal and equal in all extremities. ABDOMEN: enlarged pannus, lymphedema with thickened skin, non tender and non distended. No rebound or guarding, and no masses palpated. Bowel Sounds nor mal. MUSCULOSKELETAL: Good range of motion of all major joints. Extremities without clubbing, cyanosis or edema. NEUROLOGIC EXAM: Alert and oriented x 3 No focal sensory or strength deficits. Speech normal. Follows commands. PSYCHIATRIC: Mood normal. SKIN: detail exam as documented in skin assessment - Constitutional Vitals: Temp Pulse Resp BP Pulse Ox 98 F 95 H 24 125/74 98 04/15/21 08:00 04/15/21 06:00 04/15/21 06:00 04/15/21 06:00 04/15/21 06:00 General appearance: Present: no acute distress HEART Score - HEART Score Troponin: Troponin T 0.078 ng/mL (0.00-0.029) H D 04/08/21 13:03 Results - Labs CBC & Chem 7: 04/15/21 04:55 04/15/21 04:55 Labs: Laboratory Last Values WBC 10.0 K/mm3 (4.5-11.0) 04/15/21 04:55 RBC 3.89 M/mm3 (3.65-5.03) 04/15/21 04:55 Hgb 8.0 gm/dl (10.1-14.3) L 04/15/21 04:55 Hct 27.1 % (30.3-42.9) L 04/15/21 04:55 MCV 70 fl (79-97) L 04/15/21 04:55 MCH 21 pg (28-32) L 04/15/21 04:55 MCHC 30 % (30-34) 04/15/21 04:55 RDW 24.3 % (13.2-15.2) H 04/15/21 04:55 Plt Count 301 K/mm3 (140-440) 04/15/21 04:55 Add Manual Diff Complete 04/12/21 14:11 Total Counted 100 04/12/21 14:11 Seg Neuts % (Manual) 86.0 % (40.0-70.0) H 04/12/21 14:11 Band Neutrophils % 1.0 % 04/12/21 14:11 Lymphocytes % (Manual) 6.0 % (13.4-35.0) L 04/12/21 14:11 Reactive Lymphs % (Man) 1.0 % 04/12/21 14:11 Monocytes % (Manual) 4.0 % (0.0-7.3) 04/12/21 14:11 Metamyelocytes % 2.0 % 04/12/21 14:11 Myelocytes % 2.0 % 04/08/21 04:03 Nucleated RBC % Not Reportable 04/12/21 14:11 Seg Neutrophils # Man 12.6 K/mm3 (1.8-7.7) H 04/12/21 14:11 Band Neutrophils # 0.1 K/mm3 04/12/21 14:11 Lymphocytes # (Manual) 0.9 K/mm3 (1.2-5.4) L 04/12/21 14:11 Abs React Lymphs (Man) 0.1 K/mm3 09/26/21 14:11 Monocytes # (Manual) 0.6 K/mm3 (0.0-0.8) 04/12/21 14:11 Eosinophils # (Manual) 0.0 K/mm3 (0.0-0.4) 04/12/21 14:11 Basophils # (Manual) 0.0 K/mm3 (0.0-0.1) 04/12/21 14:11 Metamyelocytes # 0.3 K/mm3 04/12/21 14:11 Myelocytes # 0.0 K/mm3 04/12/21 14:11 Promyelocytes # 0.0 K/mm3 04/12/21 14:11 Blast Cells # 0.0 K/mm3 04/12/21 14:11 WBC Morphology Not Reportable 04/12/21 14:11 WBC Morphology TNR 04/12/21 14:11 Hypersegmented Neuts Not Reportable 04/12/21 14:11 Hyposegmented Neuts Not Reportable 04/12/21 14:11 Hypogranular Neuts Not Reportable 04/12/21 14:11 Smudge Cells Not Reportable 04/12/21 14:11 Toxic Granulation Not Reportable 04/12/21 14:11 Toxic Vacuolation Not Reportable 04/12/21 14:11 Dohle Bodies Not Reportable 04/12/21 14:11 Pelger-Huet Anomaly Not Reportable 04/12/21 14:11 Ana Cristina Rods Not Reportable 04/12/21 14:11 Platelet Estimate Consistent w auto 04/12/21 14:11 Clumped Platelets Not Reportable 04/12/21 14:11 Plt Clumps, EDTA Not Reportable 04/12/21 14:11 Large Platelets Not Reportable 04/12/21 14:11 Giant Platelets Not Reportable 04/12/21 14:11 Platelet Satelliting Not Reportable 04/12/21 14:11 Plt Morphology Comment Not Reportable 04/12/21 14:11 RBC Morphology Not Reportable 04/12/21 14:11 Dimorphic RBCs Not Reportable 04/12/21 14:11 Polychromasia Few 04/12/21 14:11 Hypochromasia 1+ 04/12/21 14:11 Poikilocytosis Not Reportable 04/12/21 14:11 Anisocytosis Not Reportable 04/12/21 14:11 Microcytosis Not Reportable 04/12/21 14:11 Macrocytosis Not Reportable 04/12/21 14:11 Spherocytes Not Reportable 04/12/21 14:11 Pappenheimer Bodies Not Reportable 04/12/21 14:11 Sickle Cells Not Reportable 04/12/21 14:11 Target Cells 1+ 04/12/21 14:11 Tear Drop Cells Few 04/12/21 14:11 Ovalocytes Not Reportable 04/12/21 14:11 Helmet Cells Not Reportable 04/12/21 14:11 Saravia-Pioneer Bodies Not Reportable 04/12/21 14:11 Anthony Rings Not Reportable 04/12/21 14:11 [place] Cells Not Reportable 04/12/21 14:11 Bite Cells Not Reportable 04/12/21 14:11 Crenated Cell Not Reportable 04/12/21 14:11 Elliptocytes Not Reportable 04/12/21 14:11 Acanthocytes (Spur) Not Reportable 04/12/21 14:11 Rouleaux Not Reportable 04/12/21 14:11 Hemoglobin C Crystals Not Reportable 04/12/21 14:11 Schistocytes Not Reportable 04/12/21 14:11 Malaria parasites Not Reportable 04/12/21 14:11 Tyshawn Bodies Not Reportable 04/12/21 14:11 Hem Pathologist Commnt No 04/12/21 14:11 ABG pH 7.291 (7.320-7.450) L 04/14/21 12:03 POC ABG pCO2 75.5 mmHg (32.0-48.0) H 04/14/21 12:03 ABG pCO2 86.9 mm Hg 04/13/21 18:40 POC ABG pO2 76.2 mmHg (83-108) L 04/14/21 12:03 ABG pO2 81.8 mm Hg (80.0-90.0) 04/13/21 18:40 POC ABG HCO3 35.6 04/14/21 12:03 ABG HCO3 36.2 mmol/L (20.0-26.0) H 04/13/21 18:40 ABG O2 Saturation 93.3 (0-100) 04/14/21 12:03 ABG O2 Content 10.4 (0.0-44) 04/13/21 18:40 POC ABG Base Excess 7.2 04/14/21 12:03 ABG Base Excess 7.4 mmol/L (-2.0-3.0) H 04/13/21 18:40 ABG Hemoglobin 9.9 (12.0-17.5) L 04/14/21 12:03 ABG Oxyhemoglobin 91.0 (94-98) L 04/14/21 12:03 ABG Carboxyhemoglobin 1.9 % (0.0-5.0) 04/13/21 18:40 ABG Methemoglobin 0.3 (0.0-1.5) 04/14/21 12:03 ABG Sodium 134.9 mmol/L (136.0-145.0) L 04/14/21 12:03 ABG Potassium 4.0 mmol/L (3.40-4.50) 04/14/21 12:03 ABG Chloride 93.0 mmol/L (98-107) L 04/14/21 12:03 ABG Glucose 146 mg/dL (65-95) H 04/14/21 12:03 Oxyhemoglobin 93.7 % (95.0-99.0) L 04/13/21 18:40 Carboxyhemoglobin 2.2 (0.5-1.5) H 04/14/21 12:03 FiO2 30 % 04/13/21 18:40 FiO2 % 36.0 04/14/21 12:03 Sodium 139 mmol/L (137-145) 04/15/21 04:55 Potassium 3.7 mmol/L (3.6-5.0) 04/15/21 04:55 Chloride 95.1 mmol/L (98-107) L 04/15/21 04:55 Carbon Dioxide 36 mmol/L (22-30) H 04/15/21 04:55 Anion Gap 12 mmol/L 04/15/21 04:55 BUN 63 mg/dL (7-17) H 04/15/21 04:55 Creatinine 1.5 mg/dL (0.6-1.2) H 04/15/21 04:55 Estimated GFR 48 ml/min 04/15/21 04:55 BUN/Creatinine Ratio 42 % 04/15/21 04:55 Glucose 131 mg/dL (65-100) H 04/15/21 04:55 POC Glucose 118 mg/dL (70-105) H 04/15/21 05:29 Osmolality 301 Mosm/kg 04/09/21 23:15 Calcium 8.3 mg/dL (8.4-10.2) L 04/15/21 04:55 Ionized Calcium 3.6 mg/dL (4.8-5.6) L 04/09/21 23:15 Total Bilirubin 1.80 mg/dL (0.1-1.2) H 04/15/21 04:55 AST 323 units/L (5-40) H 04/15/21 04:55 ALT 609 units/L (7-56) H 04/15/21 04:55 Alkaline Phosphatase 89 units/L (35-129) 04/15/21 04:55 Total Creatine Kinase 1712 units/L (30-135) H 04/10/21 10:04 Troponin T 0.078 ng/mL (0.00-0.029) H D 04/08/21 13:03 NT-Pro-B Natriuret Pep 7573 pg/mL (0-450) H 04/07/21 22:04 Total Protein 9.3 g/dL (6.3-8.2) H 04/15/21 04:55 Albumin 2.9 g/dL (3.9-5) L 04/15/21 04:55 Albumin/Globulin Ratio 0.5 % 04/15/21 04:55 Triglycerides 105 mg/dL (2-149) 04/07/21 22:04 Cholesterol 85 mg/dL (50-199) 04/07/21 22:04 LDL Cholesterol Direct 47 mg/dL (50-130) L 04/07/21 22:04 HDL Cholesterol 25 mg/dL (40-59) L 04/07/21 22:04 Cholesterol/HDL Ratio 3.40 % 04/07/21 22:04 Total Cortisol 41.3 mcg/dL () 04/10/21 10:04 Arterial Blood Glucose 146 mg/dL (65-95) H 04/14/21 12:03 Urine Osmolality 157 Mosm/kg 04/09/21 18:46 Urine Sodium 16 mmol/L 04/09/21 18:46 Coronavirus (PCR) Negative (Negative) 04/14/21 Unknown Hepatitis A IgM Ab Non-reactive (NonReactive) 04/14/21 18:45 Hep Bs Antigen Nonreactive (Negative) 04/14/21 18:45 Hepatitis C Antibody Non-reactive (NonReactive) 04/14/21 18:45 Zambrano/IV: Voiding Method Indwelling Catheter Active Medications - Current Medications Current Medications: Generic Name Dose Route Start Last Admin Trade Name Freq PRN Reason Stop Dose Admin Acetaminophen 650 mg 04/08/21 03:00 Acetaminophen 325 Mg Tab PO Q4H PRN Pain MILD(1-3)/Fever >100.5/BROWN Albuterol 2.5 mg 04/08/21 03:00 Albuterol 2.5 Mg/3 Ml Nebu IH Q4HRT PRN Shortness Of Breath Albuterol/Ipratropium 1 ampul 04/08/21 08:00 04/15/21 00:18 Ipratropium/Albuterol Sulfate 3 Ml Ampul.Neb IH Not Given TIDRT EKATERINA Aspirin 325 mg 04/09/21 10:00 04/14/21 11:31 Aspirin Ec 325 Mg Tab PO 325 mg QDAY EKATERINA Administration Atorvastatin Calcium 40 mg 04/08/21 22:00 04/14/21 21:02 Atorvastatin 40 Mg Tab PO 40 mg QHS EKATERINA Administration Benzonatate 100 mg 04/08/21 06:00 04/15/21 05:44 Benzonatate 100 Mg Cap PO 100 mg Q8HR EKATERINA Administration Famotidine 20 mg 04/15/21 10:00 Famotidine 20 Mg Tab PO BID EKATERINA Furosemide 40 mg 04/13/21 18:00 04/15/21 06:48 Furosemide 40 Mg Tab PO Not Given 0600,1800 EKATERINA Guaifenesin 200 mg 04/12/21 14:47 Guaifenesin 100 Mg/5 Ml Oral Liqd PO Q4H PRN Cough Heparin Sodium (Porcine) 5,000 unit 04/08/21 06:00 04/15/21 05:44 Heparin 5,000 Unit/1 Ml Vial SUB-Q 5,000 unit Q8HR EKATERINA Administration Hydromorphone HCl 0.5 mg 04/08/21 03:00 04/14/21 04:16 Hydromorphone 1 Mg/1 Ml Inj IV 0.5 mg Q3H PRN Administration Pain , Severe (7-10) Methylprednisolone 4 mg 04/08/21 10:00 04/14/21 11:56 Methylprednisolone 4 Mg Tab PO 4 mg DAILY EKATERINA Administration Nitroglycerin 0.4 mg 04/08/21 03:00 Nitroglycerin 0.4 Mg Tab Subl SL Q5M PRN Chest Pain Nystatin 1 applic 04/08/21 18:00 04/14/21 21:02 Nystatin Powder 15 Gm TP 1 applic BID EKATERINA Administration Ondansetron HCl 4 mg 04/08/21 03:00 Ondansetron 4 Mg/2 Ml Inj IV Q8H PRN Nausea And Vomiting Oxycodone/Acetaminophen 1 tab 04/08/21 03:00 04/13/21 01:52 Oxycodone /Acetaminophen 5-325mg Tab PO 1 tab Q6H PRN Administration Pain, Moderate (4-6) Sodium Chloride 10 ml 04/08/21 10:00 04/15/21 00:37 Sodium Chloride 0.9% 10 Ml Flush Syringe IV 10 ml BID EKATERINA Administration Sodium Chloride 10 ml 04/08/21 03:00 Sodium Chloride 0.9% 10 Ml Flush Syringe IV PRN PRN LINE FLUSH Tramadol HCl 50 mg 04/08/21 03:00 Tramadol 50 Mg Tab PO Q6H PRN Pain, Moderate (4-6) Nutrition/Malnutrition Assess - Dietary Evaluation Nutrition/Malnutrition Findings: Nutrition Notes Start: 04/08/21 14:21 Freq: Status: Active Protocol: Document 04/13/21 17:08 GB (Rec: 04/13/21 17:14 GB [email or web address]) Nutrition Notes Initial or Follow up Reassessment Current Diagnosis Hypertension Other Pertinent Diagnosis Dyspnea, respiratory distress, morbid obesity Current Diet Regular Labs/Tests 04/13: Na 134, BUN 63, creatinine 2.2, glucose 159, Ca 7.8 Pertinent Medications Lasix, NaCl IV flushes Height 5 ft 4 in Weight 287.5 kg [place] Body Weight (kg) 54.54 BMI 108.8 Weight change and time frame expect weight fluctuations r/t fluid therapy, CHF complications Weight Status Morbidly Obese Subjective/Other Information Per MD notes 04/13: fluid restrictions, on nasal cannula 3L, possibly obesity hypoventilation syndrome, recommended to bariatric consult Percent of energy/protein needs met: Meals and snacks provided meet 100% of estimated energy needs. Current po intake of meals recorded average 50%. Burn Absent Trauma Absent GI Symptoms None Food Allergy No Current % PO Fair (50-74%) Minimum of two criteria No #1 Nutrition Diagnosis Overweight/obesity Comments: Discussed diet/life style changes using small goal successes to advancement, encouraged outpatient RD counseling at bariatric center Etiology dyspnea, respiratory distress As Evidenced by Signs and Symptoms BMI 103, IBW 498% Diagnosis Progress(for reassessment Continues documentation) Is patient on ventilator? No Is Patient Ambulatory and/or Out of Bed No REE-([place]-confined to bed) 4277.724 Kcal/Kg value to use for calculation 10 Approximate Energy Requirements Using 2875 kcal/Kg Calculation Used for Recommendations Kcal/kg Additional Notes Protein 0.6 g/kg r/t BMI over 50: 163g Fluids: 1ml/kcal or per MD Nutrition Intervention Change Diet Order: continue with current diet Goal #1 Pt to contact and make appointment with outpatient RD in bariatric center Goal #2 weight to decrease -1% during LOS Follow-Up By: 04/20/21 Additional Comments f/u for weight loss, po intake
[2021-04-15] MEDS: NYSTATIN POWDER 15 GM TP SCH ×2 (10:18→22:46)
[2021-04-15] MEDS: FAMOTIDINE 20 MG TAB PO SCH ×2 (10:18→22:16)
[2021-04-15] MEDS: methylPREDNISolone 4 MG TAB PO SCH (10:18)
[2021-04-15] MEDS: ASPIRIN EC 325 MG TAB PO SCH (10:18)
--- NOTE | 2021-04-15 12:09 | Progress Note ---
Subjective Principal diagnosis: Acute on chronic renal insufficiency Interval history: Assessment Acute kidney injury, unknown baseline. Renal ultrasound notes poor visualization due to body habitus. Hypervolemic Hyponatremia Hyperkalemia Hypocalcemia Morbid obesity Recommendations Continue diuresis stopped Na tabls cr is stable today echo noted, likely diastolic disease rec lasix 40mg po bid at discharge rise in bun noted S/p Kayexalate on admission Maintain MAP more than 65 Hold SUNG/ARB at this time Hold diuretics given soft pressures Renally dose medications Avoid nephrotoxins Renal diet will follow lytes prn Subjective: Principal diagnosis: Acute on chronic renal insufficiency Interval history: Patient was seen for her renal issues Nursing, interdisciplinary and consult notes were reviewed Vitals, input and output, medications and labs were reviewed Remains on NC Objective - Exam Narrative Exam: General: Morbid obesity HEENT: Oral mucosa moist Neck: Supple, no JVD Chest: Clear to auscultation bilaterally Heart: RRR, S1 and S2, no pericardial rub Abdomen: Soft, nontender, no renal bruit Extremity: No peripheral cyanosis, edema Neurological: Awake and alert Dermatology: Unable to assess Psych: Calm and cooperative Musculoskeletal: No joint effusion Objective - Vital Signs Vital signs: Vital Signs - 12hr 04/15/21 04/15/21 04/15/21 00:19 00:30 01:00 Temperature Pulse Rate 94 H 94 H Pulse Rate [ From Monitor] Respiratory 24 12 Rate Blood Pressure 147/93 148/97 O2 Sat by Pulse 92 95 Oximetry 04/15/21 04/15/21 04/15/21 01:30 01:55 02:00 Temperature Pulse Rate 96 H 93 H 93 H Pulse Rate [ From Monitor] Respiratory 12 25 H 22 Rate Blood Pressure 152/92 133/80 133/80 O2 Sat by Pulse 98 97 95 Oximetry 04/15/21 04/15/21 04/15/21 02:05 02:30 03:00 Temperature Pulse Rate 93 H 94 H Pulse Rate [ From Monitor] Respiratory 20 24 Rate Blood Pressure 131/84 127/81 O2 Sat by Pulse 92 98 98 Oximetry 04/15/21 04/15/21 04/15/21 03:30 03:45 04:00 Temperature 98.9 F Pulse Rate 94 H 95 H Pulse Rate [ From Monitor] Respiratory 18 28 H Rate Blood Pressure 133/73 123/87 O2 Sat by Pulse 97 98 Oximetry 04/15/21 04/15/2104/15/21 04:30 05:00 05:30 Temperature Pulse Rate 98 H 96 H 95 H Pulse Rate [ From Monitor] Respiratory 20 28 H 28 H Rate Blood Pressure 108/54 135/84 134/76 O2 Sat by Pulse 98 99 98 Oximetry 04/15/21 04/15/21 04/15/21 06:00 06:30 07:00 Temperature Pulse Rate 95 H 95 H 97 H Pulse Rate [ From Monitor] Respiratory 24 29 H 31 H Rate Blood Pressure 125/74 133/70 118/55 O2 Sat by Pulse 98 97 98 Oximetry 04/15/21 04/15/21 04/15/21 07:30 08:00 08:30 Temperature 98 F Pulse Rate 96 H 99 H 100 H Pulse Rate [ 101 H From Monitor] Respiratory 29 H 12 15 Rate Blood Pressure 111/71 137/80 133/81 O2 Sat by Pulse 98 97 95 Oximetry - Lab 04/15/21 04:55 04/15/21 04:55 Most recent lab results ABG pH 7.291 (7.320-7.450) L 04/14/21 12:03 ABG pCO2 86.9 mm Hg 04/13/21 18:40 ABG pO2 81.8 mm Hg (80.0-90.0) 04/13/21 18:40 ABG HCO3 36.2 mmol/L (20.0-26.0) H 04/13/21 18:40 ABG O2 Saturation 93.3 (0-100) 04/14/21 12:03 Calcium 8.3 mg/dL (8.4-10.2) L 04/15/21 04:55 Urine Sodium 16 mmol/L 04/09/21 18:46 Medications & Allergies - Medications Allergies/Adverse Reactions: Allergies No Known Allergies Allergy (Unverified 01/27/17 11:17) Home Medications: Home Medications Medication Instructions Recorded Confirmed Last Taken Type Acetaminophen [Acetaminophen TAB] 325 mg PO Q4H PRN #30 tablet 06/30/17 08/08/20 Unknown Rx ALBUTEROL NEB's [Proventil 0.083% 2.5 mg IH Q3HRT PRN #30 day 08/10/20 Unknown Rx NEBS] Albuterol Mdi (or & Nicu Only) 2 puff IH QID PRN #1 inhalation 08/10/20 Unknown Rx [ProAir HFA Inhaler] Azithromycin [Zithromax Z-BIN] 0 mg PO DAILY #1 tab 08/10/20 Unknown Rx Benzonatate [Tessalon Perles] 100 mg PO Q8HR #15 capsule 08/10/20 Unknown Rx Famotidine [Pepcid] 20 mg PO BID #14 tablet 08/10/20 Unknown Rx Ipratropium/Albuterol Sulfate 1 ampul IH TIDRT #30 day 08/10/20 Unknown Rx [DUONEB *Not for PRN Use*] hydroCHLOROthiazide [HCTZ] 25 mg PO QDAY tablet 08/10/20 Unknown Rx hydroCHLOROthiazide [HCTZ] 25 mg PO QDAY #30 tablet 08/10/20 Unknown Rx methylPREDNISolone [Medrol 4MG 4 mg PO DAILY #1 tab.ds.pk 08/10/20 Unknown Rx DOSEPAK (21 tabs)] Active Medications: Generic Name Dose Route Start Last Admin Trade Name Freq PRN Reason Stop Dose Admin Acetaminophen 650 mg 04/08/21 03:00 Acetaminophen 325 Mg Tab PO Q4H PRN Pain MILD(1-3)/Fever >100.5/BROWN Albuterol 2.5 mg 04/08/21 03:00 Albuterol 2.5 Mg/3 Ml Nebu IH Q4HRT PRN Shortness Of Breath Albuterol/Ipratropium 1 ampul 04/08/21 08:00 04/15/21 09:47 Ipratropium/Albuterol Sulfate 3 Ml Ampul.Neb IH Not Given TIDRT EKATERINA Aspirin 325 mg 04/09/21 10:00 04/15/21 10:18 Aspirin Ec 325 Mg Tab PO 325 mg QDAY EKATERINA Administration Atorvastatin Calcium 40 mg 04/08/21 22:00 04/14/21 21:02 Atorvastatin 40 Mg Tab PO 40 mg QHS EKATERINA Administration Benzonatate 100 mg 04/08/21 06:00 04/15/21 05:44 Benzonatate 100 Mg Cap PO 100 mg Q8HR EKATERINA Administration Famotidine 20 mg 04/15/21 10:00 04/15/21 10:18 Famotidine 20 Mg Tab PO 20 mg BID EKATERINA Administration Furosemide 40 mg 04/13/21 18:00 04/15/21 06:48 Furosemide 40 Mg Tab PO Not Given 0600,1800 [facility] Guaifenesin 200 mg 04/12/21 14:47 Guaifenesin 100 Mg/5 Ml Oral Liqd PO Q4H PRN Cough Heparin Sodium (Porcine) 5,000 unit 04/08/21 06:00 04/15/21 05:44 Heparin 5,000 Unit/1 Ml Vial SUB-Q 5,000 unit Q8HR EKATERINA Administration Hydromorphone HCl 0.5 mg 04/08/21 03:00 04/14/21 04:16 Hydromorphone 1 Mg/1 Ml Inj IV 0.5 mg Q3H PRN Administration Pain , Severe (7-10) Methylprednisolone 4 mg 04/08/21 10:00 04/15/21 10:18 Methylprednisolone 4 Mg Tab PO 4 mg DAILY EKATERINA Administration Nitroglycerin 0.4 mg 04/08/21 03:00 Nitroglycerin 0.4 Mg Tab Subl SL Q5M PRN Chest Pain Nystatin 1 applic 04/08/21 18:00 04/15/21 10:18 Nystatin Powder 15 Gm TP 1 applic BID EKATERINA Administration Ondansetron HCl 4 mg 04/08/21 03:00 Ondansetron 4 Mg/2 Ml Inj IV Q8H PRN Nausea And Vomiting Oxycodone/Acetaminophen 1 tab 04/08/21 03:00 04/13/21 01:52 Oxycodone /Acetaminophen 5-325mg Tab PO 1 tab Q6H PRN Administration Pain, Moderate (4-6) Sodium Chloride 10 ml 04/08/21 10:00 04/15/21 10:20 Sodium Chloride 0.9% 10 Ml Flush Syringe IV 10 ml BID EKATERINA Administration Sodium Chloride 10 ml 04/08/21 03:00 Sodium Chloride 0.9% 10 Ml Flush Syringe IV PRN PRN LINE FLUSH Tramadol HCl 50 mg 04/08/21 03:00 Tramadol 50 Mg Tab PO Q6H PRN Pain, Moderate (4-6)
[2021-04-15] MEDS: ONDANSETRON 4 MG/2 ML INJ IV PRN ×2 (15:14→23:51)
--- NOTE | 2021-04-15 20:09 | Progress Note ---
Assessment and Plan 35 years old female with history of morbid obesity, hypertension, asthma , sleep apnea was brought to the emergency room because of shortness of breath, edema, generalized malaise, fatigue, and weakness for last couple of days. She states she just does not feel well. She has a headache. She states her legs are swollen. She feels as though she is retaining fluid. She states that she went to her regular doctors on the . They tested her for Covid. It was negative. She was told to go see a revenue integrity analyst. She is not seen a car diologist as of yet. She came in here because she was not feeling well and did not know what to do. She has had no sick contacts. In the emergency room patient is found to have acute CHF exacerbation patient proBNP is 7573 also patient cardiac enzyme is elevated troponin is 0.043. Patient blood glucose also 55 patient is hypoglycemic Patients present blood sugur 130. Patient is sleeping on BIPAP 24/12, rate 20, FIO2 30% and O2 saturation 98%. No increased work of breathing on present settings. Patient afebrile. No leukocytosis. Blood pressure 107/58, Pulse 94. Patient presently on albuterol/atrovent aerosol treatments q 6 hours, S/C Hepatin, Famotidine and PO Medrol. I spent critical care time of 35 minutes, review the chart, examine the patient, review lab results, talking to the nursing staff and respiratory therapy and work out plan of treatment in this critically ill morbidly Obese patient. - Patient Problems (1) Acute respiratory failure with hypoxia and hypercapnia Current Visit: Yes Status: Acute Plan to address problem: BIPAP 24/12, rate 20, FIO2 30% Albuterol/atrovent aerosol treatments. Continue medrol Contibue S/C Heparin. Continue famotidine. (2) Acute exacerbation of CHF (congestive heart failure) Current Visit: Yes Status: Acute Plan to address problem: Management as per cardiology. (3) Hypertension Current Visit: Yes Status: Acute Plan to address problem: Management as per primary care. (4) Morbid obesity with BMI of 70 and over, adult Current Visit: No Status: Acute Plan to address problem: Weight reduction diet. Mobility protocol Fall precautions. (5) Obesity hypoventilation syndrome Current Visit: No Status: Acute Plan to address problem: BIPAP 24/12, rate 20, FIO2 30%. (6) Sleep apnea Current Visit: No Status: Acute Plan to address problem: BIPAP 24/12, rate 20, FIO2 30%. Sleep study if she can as out patient. Subjective Date of service: 04/15/21 Principal diagnosis: Acute on chronic renal insufficiency Interval history: 35 years old female with history of morbid obesity, hypertension, asthma COPD sleep apnea was brought to the emergency room because of shortness of breath, edema, generalized malaise, fatigue, and weakness for last couple of days. She states she just does not feel well. She has a headache. She states her legs are swollen. She feels as though she is retaining fluid. She states that she went to her regular doctors on the . They tested her for Covid. It was negative. She was told to go see a revenue integrity analyst. She is not seen a revenue integrity analyst as of yet. She came in here because she was not feeling well and did not know what to do. She has had no sick contacts. In the emergency room patient is found to have acute CHF exacerbation patient proBNP is 7573 also patient cardiac enzyme is elevated troponin is 0.043. Patient blood glucose also 55 patient is hypoglycemic. Patients present blood sugur 130. Patient is sleeping on BIPAP 24/12, rate 20, FIO2 30% and O2 saturation 98%. No increased work of breathing on present settings. Patient afebrile. No leukocytosis. Blood pressure 107/58, Pulse 94. Patient presently on albuterol/atrovent aerosol treatments q 6 hours, S/C Hepatin, Famotidine and PO Medrol. Objective Vital Signs - 12hr 04/15/21 04/15/21 04/15/21 08:30 09:00 09:30 Temperature Pulse Rate 100 H 98 H 99 H Pulse Rate [ Anterior Bilateral Throughout] Pulse Rate [ From Monitor] Respiratory 15 23 24 Rate Respiratory Rate [Anterior Bilateral Throughout] Blood Pressure 133/81 132/83 121/57 O2 Sat by Pulse 95 95 96 Oximetry 04/15/21 04/15/21 04/15/21 10:00 10:30 11:00 Temperature Pulse Rate 100 H 98 H 100 H Pulse Rate [ Anterior Bilateral Throughout] Pulse Rate [ From Monitor] Respiratory 29 H 30 H 29 H Rate Respiratory Rate [Anterior Bilateral Throughout] Blood Pressure 123/73 123/73 123/73 O2 Sat by Pulse 94 97 97 Oximetry 04/15/21 04/15/21 04/15/21 11:30 12:00 12:30 Temperature 98.8 F Pulse Rate 97 H 103 H 104 H Pulse Rate [ Anterior Bilateral Throughout] Pulse Rate [ 103 H From Monitor] Respiratory 32 H 14 31 H Rate Respiratory Rate [Anterior Bilateral Throughout] Blood Pressure 168/90 168/90 168/90 O2 Sat by Pulse 96 90 96 Oximetry 04/15/21 04/15/21 04/15/21 13:00 13:30 14:00 Temperature Pulse Rate 105 H 103 H 101 H Pulse Rate [ Anterior Bilateral Throughout] Pulse Rate [ From Monitor] Respiratory 36 H 22 24 Rate Respiratory Rate [Anterior Bilateral Throughout] Blood Pressure 168/90 168/90 165/83 O2 Sat by Pulse 95 93 91 Oximetry 04/15/21 04/15/21 04/15/21 14:30 15:00 15:30 Temperature Pulse Rate 98 H 98 H 101 H Pulse Rate [ 102 H Anterior Bilateral Throughout] Pulse Rate [ From Monitor] Respiratory 20 33 H 27 H Rate Respiratory 20 Rate [Anterior Bilateral Throughout] Blood Pressure 130/66 124/76 117/78 O2 Sat by Pulse 96 91 Oximetry 04/15/21 04/15/21 04/15/21 16:00 16:30 17:00 Temperature 98.6 F Pulse Rate 103 H 105 H 105 H Pulse Rate [ Anterior Bilateral Throughout] Pulse Rate [ 98 H From Monitor] Respiratory 14 25 H 16 Rate Respiratory Rate [Anterior Bilateral Throughout] Blood Pressure 130/78 125/82 125/82 O2 Sat by Pulse 94 91 77 L Oximetry 04/15/21 04/15/21 04/15/21 17:30 18:00 18:30 Temperature Pulse Rate 102 H 102 H 97 H Pulse Rate [ Anterior Bilateral Throughout] Pulse Rate [ From Monitor] Respiratory 20 21 20 Rate Respiratory Rate [Anterior Bilateral Throughout] Blood Pressure 125/77 117/66 116/71 O2 Sat by Pulse 93 87 95 Oximetry 04/15/21 04/15/21 18:32 19:00 Temperature Pulse Rate 101 H Pulse Rate [ Anterior Bilateral Throughout] Pulse Rate [ From Monitor] Respiratory 23 23 Rate Respiratory Rate [Anterior Bilateral Throughout] Blood Pressure 126/72 116/65 O2 Sat by Pulse 92 91 Oximetry Constitutional: no acute distress, asleep, other (Morbidly Obese , sleeping on BIPAP.) Eyes: non-icteric ENT: oropharynx moist Neck: supple, no lymphadenopathy, no JVD Effort: mildly labored Ascultation: Bilateral: diminished breath sounds Cardiovascular: regular rate and rhythm Gastrointestinal: normoactive bowel sounds, soft, non-tender Integumentary: decubitus ulcer, other (Stasis dermatititis on legs and abdomen.) Extremities: edema, other (stasis dermatitis) Neurologic: pupils equal and round, unable to assess Psychiatric: other (Can not assess.) CBC and BMP: 04/15/21 04:55 04/15/21 04:55 ABG, PT/INR, D-dimer: ABG ABG pH 7.291 (7.320-7.450) L 04/14/21 12:03 POC ABG pCO2 75.5 mmHg (32.0-48.0) H 04/14/21 12:03 ABG pCO2 86.9 mm Hg 04/13/21 18:40 POC ABG pO2 76.2 mmHg (83-108) L 04/14/21 12:03 ABG pO2 81.8 mm Hg (80.0-90.0) 04/13/21 18:40 POC ABG HCO3 35.6 04/14/21 12:03 ABG O2 Saturation 93.3 (0-100) 04/14/21 12:03 Abnormal lab findings: Abnormal Labs 04/07/21 04/07/21 04/08/21 22:04 22:04 00:18 WBC 17.7 H Hgb 9.1 L Hct MCV 77 L MCH 21 L MCHC 27 L RDW 24.3 H Seg Neuts % (Manual) Lymphocytes % (Manual) Nucleated RBC % Seg Neutrophils # Man Lymphocytes # (Manual) Monocytes # (Manual) ABG pH POC ABG pCO2 POC ABG pO2 ABG pO2 ABG HCO3 ABG Base Excess ABG Hemoglobin ABG Oxyhemoglobin ABG Sodium ABG Chloride ABG Glucose Oxyhemoglobin Carboxyhemoglobin Sodium 135 L Potassium Chloride 91.0 L Carbon Dioxide 17 L BUN Creatinine 1.4 H Glucose 55 L POC Glucose 49 L Calcium Ionized Calcium Total Bilirubin AST ALT Total Creatine Kinase Troponin T 0.043 H NT-Pro-B Natriuret Pep 7573 H Total Protein Albumin LDL Cholesterol Direct 47 L HDL Cholesterol 25 L Arterial Blood Glucose 09/22/21 09/22/21 09/22/21 04:03 04:03 09:22 WBC 24.3 H Hgb 9.3 L Hct MCV 74 L MCH 21 L MCHC 29 L RDW 23.1 H Seg Neuts % (Manual) 78.0 H Lymphocytes % (Manual) 7.0 L Nucleated RBC % 1.0 H Seg Neutrophils # Man 19.0 H Lymphocytes # (Manual) Monocytes # (Manual) 1.0 H ABG pH POC ABG pCO2 POC ABG pO2 ABG pO2 ABG HCO3 ABG Base Excess ABG Hemoglobin ABG Oxyhemoglobin ABG Sodium ABG Chloride ABG Glucose Oxyhemoglobin Carboxyhemoglobin Sodium 134 L Potassium Chloride 91.2 L Carbon Dioxide BUN Creatinine 1.8 H Glucose POC Glucose Calcium Ionized Calcium Total Bilirubin AST ALT Total Creatine Kinase Troponin T 0.099 H NT-Pro-B Natriuret Pep Total Protein Albumin LDL Cholesterol Direct HDL Cholesterol Arterial Blood Glucose 04/08/21 04/08/21 04/09/21 13:03 20:28 04:52 WBC 20.9 H Hgb 8.5 L Hct 30.0 L MCV 73 L MCH 21 L MCHC 28 L RDW 23.9 H Seg Neuts % (Manual) 77.0 H Lymphocytes % (Manual) 1.0 L Nucleated RBC % 1.0 H Seg Neutrophils # Man 16.1 H Lymphocytes # (Manual) 0.2 L Monocytes # (Manual) ABG pH POC ABG pCO2 POC ABG pO2 ABG pO2 ABG HCO3 ABG Base Excess ABG Hemoglobin ABG Oxyhemoglobin ABG Sodium ABG Chloride ABG Glucose Oxyhemoglobin Carboxyhemoglobin Sodium Potassium Chloride Carbon Dioxide BUN Creatinine Glucose POC Glucose 115 H Calcium Ionized Calcium Total Bilirubin AST ALT Total Creatine Kinase Troponin T 0.078 H D NT-Pro-B Natriuret Pep Total Protein Albumin LDL Cholesterol Direct HDL Cholesterol Arterial Blood Glucose 04/09/21 04/09/21 04/09/21 04:52 08:46 11:50 WBC Hgb Hct MCV MCH MCHC RDW Seg Neuts % (Manual) Lymphocytes % (Manual) Nucleated RBC % Seg Neutrophils # Man Lymphocytes # (Manual) Monocytes # (Manual) ABG pH POC ABG pCO2 POC ABG pO2 ABG pO2 ABG HCO3 ABG Base Excess ABG Hemoglobin ABG Oxyhemoglobin ABG Sodium ABG Chloride ABG Glucose Oxyhemoglobin Carboxyhemoglobin Sodium 129 L Potassium 5.6 H Chloride 88.6 L Carbon Dioxide BUN 27 H Creatinine 2.4 H Glucose 121 H POC Glucose 139 H 156 H Calcium 7.7 L Ionized Calcium Total Bilirubin AST ALT Total Creatine Kinase Troponin T NT-Pro-B Natriuret Pep Total Protein Albumin LDL Cholesterol Direct HDL Cholesterol Arterial Blood Glucose 04/09/21 04/09/21 04/09/21 15:46 16:58 22:08 WBC Hgb Hct MCV MCH MCHC RDW Seg Neuts % (Manual) Lymphocytes % (Manual) Nucleated RBC % Seg Neutrophils # Man Lymphocytes # (Manual) Monocytes # (Manual) ABG pH POC ABG pCO2 POC ABG pO2 ABG pO2 ABG HCO3 ABG Base Excess ABG Hemoglobin ABG Oxyhemoglobin ABG Sodium ABG Chloride ABG Glucose Oxyhemoglobin Carboxyhemoglobin Sodium 128 L Potassium 5.5 H Chloride 88.1 L Carbon Dioxide BUN 33 H Creatinine 2.7 H Glucose 172 H POC Glucose 187 H 186 H Calcium 7.3 L Ionized Calcium Total Bilirubin AST ALT Total Creatine Kinase Troponin T NT-Pro-B Natriuret Pep Total Protein Albumin LDL Cholesterol Direct HDL Cholesterol Arterial Blood Glucose 04/09/21 04/10/21 04/10/21 23:15 02:20 07:39 WBC Hgb Hct MCV MCH MCHC RDW Seg Neuts % (Manual) Lymphocytes % (Manual) Nucleated RBC % Seg Neutrophils # Man Lymphocytes # (Manual) Monocytes # (Manual) ABG pH POC ABG pCO2 POC ABG pO2 ABG pO2 ABG HCO3 ABG Base Excess ABG Hemoglobin ABG Oxyhemoglobin ABG Sodium ABG Chloride ABG Glucose Oxyhemoglobin Carboxyhemoglobin Sodium 128 L Potassium 5.2 H Chloride 88.6 L Carbon Dioxide BUN 39 H Creatinine 3.1 H Glucose 171 H POC Glucose 168 H Calcium 7.2 L Ionized Calcium 3.6 L Total Bilirubin AST ALT Total Creatine Kinase Troponin T NT-Pro-B Natriuret Pep Total Protein Albumin LDL Cholesterol Direct HDL Cholesterol Arterial Blood Glucose 04/10/21 04/10/21 04/10/21 10:04 11:37 17:18 WBC Hgb Hct MCV MCH MCHC RDW Seg Neuts % (Manual) Lymphocytes % (Manual) Nucleated RBC % Seg Neutrophils # Man Lymphocytes # (Manual) Monocytes # (Manual) ABG pH POC ABG pCO2 POC ABG pO2 ABG pO2 ABG HCO3 ABG Base Excess ABG Hemoglobin ABG Oxyhemoglobin ABG Sodium ABG Chloride ABG Glucose Oxyhemoglobin Carboxyhemoglobin Sodium Potassium Chloride Carbon Dioxide BUN Creatinine Glucose POC Glucose 170 H 152 H Calcium Ionized Calcium Total Bilirubin AST ALT Total Creatine Kinase 1712 H Troponin T NT-Pro-B Natriuret Pep Total Protein Albumin LDL Cholesterol Direct HDL Cholesterol Arterial Blood Glucose 04/10/21 04/10/21 04/11/21 19:38 22:02 05:48 WBC Hgb Hct MCV MCH MCHC RDW Seg Neuts % (Manual) Lymphocytes % (Manual) Nucleated RBC % Seg Neutrophils # Man Lymphocytes # (Manual) Monocytes # (Manual) ABG pH POC ABG pCO2 POC ABG pO2 ABG pO2 ABG HCO3 ABG Base Excess ABG Hemoglobin ABG Oxyhemoglobin ABG Sodium ABG Chloride ABG Glucose Oxyhemoglobin Carboxyhemoglobin Sodium 128 L 124 L Potassium 5.8 H D Chloride 89.6 L 89.4 L Carbon Dioxide BUN 47 H 53 H Creatinine 3.0 H 2.8 H Glucose 165 H 150 H POC Glucose 147 H Calcium 6.9 L 7.2 L Ionized Calcium Total Bilirubin AST ALT Total Creatine Kinase Troponin T NT-Pro-B Natriuret Pep Total Protein Albumin LDL Cholesterol Direct HDL Cholesterol Arterial Blood Glucose 04/11/21 04/11/21 04/11/21 08:48 11:35 19:12 WBC Hgb Hct MCV MCH MCHC RDW Seg Neuts % (Manual) Lymphocytes % (Manual) Nucleated RBC % Seg Neutrophils # Man Lymphocytes # (Manual) Monocytes # (Manual) ABG pH POC ABG pCO2 POC ABG pO2 ABG pO2 ABG HCO3 ABG Base Excess ABG Hemoglobin ABG Oxyhemoglobin ABG Sodium ABG Chloride ABG Glucose Oxyhemoglobin Carboxyhemoglobin Sodium 128 L Potassium Chloride 89.7 L Carbon Dioxide BUN 53 H Creatinine 2.4 H Glucose 159 H POC Glucose 152 H 152 H Calcium 7.1 L Ionized Calcium Total Bilirubin AST ALT Total Creatine Kinase Troponin T NT-Pro-B Natriuret Pep Total Protein Albumin LDL Cholesterol Direct HDL Cholesterol Arterial Blood Glucose 04/11/21 04/12/21 04/12/21 22:03 05:03 07:41 WBC Hgb Hct MCV MCH MCHC RDW Seg Neuts % (Manual) Lymphocytes % (Manual) Nucleated RBC % Seg Neutrophils # Man Lymphocytes # (Manual) Monocytes # (Manual) ABG pH POC ABG pCO2 POC ABG pO2 ABG pO2 ABG HCO3 ABG Base Excess ABG Hemoglobin ABG Oxyhemoglobin ABG Sodium ABG Chloride ABG Glucose Oxyhemoglobin Carboxyhemoglobin Sodium 134 L Potassium Chloride 92.9 L Carbon Dioxide 33 H D BUN 54 H Creatinine 2.4 H Glucose 150 H POC Glucose 152 H 144 H Calcium 7.2 L Ionized Calcium Total Bilirubin AST ALT Total Creatine Kinase Troponin T NT-Pro-B Natriuret Pep Total Protein Albumin LDL Cholesterol Direct HDL Cholesterol Arterial Blood Glucose 04/12/21 04/12/21 04/12/21 11:38 14:11 17:02 WBC 14.7 H Hgb 8.7 L Hct 29.8 L MCV 74 L MCH 22 L MCHC 29 L RDW 24.9 H Seg Neuts % (Manual) 86.0 H Lymphocytes % (Manual) 6.0 L Nucleated RBC % Seg Neutrophils # Man 12.6 H Lymphocytes # (Manual) 0.9 L Monocytes # (Manual) ABG pH POC ABG pCO2 POC ABG pO2 ABG pO2 ABG HCO3 ABG Base Excess ABG Hemoglobin ABG Oxyhemoglobin ABG Sodium ABG Chloride ABG Glucose Oxyhemoglobin Carboxyhemoglobin Sodium Potassium Chloride Carbon Dioxide BUN Creatinine Glucose POC Glucose 151 H 154 H Calcium Ionized Calcium Total Bilirubin AST ALT Total Creatine Kinase Troponin T NT-Pro-B Natriuret Pep Total Protein Albumin LDL Cholesterol Direct HDL Cholesterol Arterial Blood Glucose 04/12/21 04/13/21 04/13/21 23:14 05:03 10:00 WBC Hgb Hct MCV MCH MCHC RDW Seg Neuts % (Manual) Lymphocytes % (Manual) Nucleated RBC % Seg Neutrophils # Man Lymphocytes # (Manual) Monocytes # (Manual) ABG pH 7.150 L* POC ABG pCO2 POC ABG pO2 ABG pO2 91.8 H ABG HCO3 37.2 H ABG Base Excess 7.1 H ABG Hemoglobin 7.1 L ABG Oxyhemoglobin ABG Sodium ABG Chloride ABG Glucose Oxyhemoglobin 93.4 L Carboxyhemoglobin Sodium 134 L Potassium Chloride 91.3 L Carbon Dioxide 33 H BUN 63 H Creatinine 2.2 H Glucose 159 H POC Glucose 151 H Calcium 7.8 L Ionized Calcium Total Bilirubin AST ALT Total Creatine Kinase Troponin T NT-Pro-B Natriuret Pep Total Protein Albumin LDL Cholesterol Direct HDL Cholesterol Arterial Blood Glucose 04/13/21 04/13/21 04/13/21 12:39 16:37 18:40 WBC Hgb Hct MCV MCH MCHC RDW Seg Neuts % (Manual) Lymphocytes % (Manual) Nucleated RBC % Seg Neutrophils # Man Lymphocytes # (Manual) Monocytes # (Manual) ABG pH 7.237 L POC ABG pCO2 POC ABG pO2 ABG pO2 ABG HCO3 36.2 H ABG Base Excess 7.4 H ABG Hemoglobin 7.8 L ABG Oxyhemoglobin ABG Sodium ABG Chloride ABG Glucose Oxyhemoglobin 93.7 L Carboxyhemoglobin Sodium Potassium Chloride Carbon Dioxide BUN Creatinine Glucose POC Glucose 140 H 132 H Calcium Ionized Calcium Total Bilirubin AST ALT Total Creatine Kinase Troponin T NT-Pro-B Natriuret Pep Total Protein Albumin LDL Cholesterol Direct HDL Cholesterol Arterial Blood Glucose 04/13/21 04/14/21 04/14/21 23:55 04:27 04:27 WBC Hgb 8.5 L Hct 29.1 L MCV 72 L MCH 21 L MCHC 29 L RDW 24.9 H Seg Neuts % (Manual) Lymphocytes % (Manual) Nucleated RBC % Seg Neutrophils # Man Lymphocytes # (Manual) Monocytes # (Manual) ABG pH POC ABG pCO2 POC ABG pO2 ABG pO2 ABG HCO3 ABG Base Excess ABG Hemoglobin ABG Oxyhemoglobin ABG Sodium ABG Chloride ABG Glucose Oxyhemoglobin Carboxyhemoglobin Sodium 135 L Potassium Chloride 93.5 L Carbon Dioxide 33 H BUN 68 H Creatinine 1.9 H Glucose 143 H POC Glucose 135 H Calcium 8.1 L Ionized Calcium Total Bilirubin 1.50 H AST 494 H ALT 835 H Total Creatine Kinase Troponin T NT-Pro-B Natriuret Pep Total Protein 9.5 H Albumin 3.1 L LDL Cholesterol Direct HDL Cholesterol Arterial Blood Glucose 04/14/21 04/14/21 04/15/21 12:03 17:24 00:19 WBC Hgb Hct MCV MCH MCHC RDW Seg Neuts % (Manual) Lymphocytes % (Manual) Nucleated RBC % Seg Neutrophils # Man Lymphocytes # (Manual) Monocytes # (Manual) ABG pH 7.291 L POC ABG pCO2 75.5 H POC ABG pO2 76.2 L ABG pO2 ABG HCO3 ABG Base Excess ABG Hemoglobin 9.9 L ABG Oxyhemoglobin 91.0 L ABG Sodium 134.9 L ABG Chloride 93.0 L ABG Glucose 146 H Oxyhemoglobin Carboxyhemoglobin 2.2 H Sodium Potassium Chloride Carbon Dioxide BUN Creatinine Glucose POC Glucose 134 H 136 H Calcium Ionized Calcium Total Bilirubin AST ALT Total Creatine Kinase Troponin T NT-Pro-B Natriuret Pep Total Protein Albumin LDL Cholesterol Direct HDL Cholesterol Arterial Blood Glucose 146 H 04/15/21 04/15/21 04/15/21 04:55 04:55 05:29 WBC Hgb 8.0 L Hct 27.1 L MCV 70 L MCH 21 L MCHC RDW 24.3 H Seg Neuts % (Manual) Lymphocytes % (Manual) Nucleated RBC % Seg Neutrophils # Man Lymphocytes # (Manual) Monocytes # (Manual) ABG pH POC ABG pCO2 POC ABG pO2 ABG pO2 ABG HCO3 ABG Base Excess ABG Hemoglobin ABG Oxyhemoglobin ABG Sodium ABG Chloride ABG Glucose Oxyhemoglobin Carboxyhemoglobin Sodium Potassium Chloride 95.1 L Carbon Dioxide 36 H BUN 63 H Creatinine 1.5 H Glucose 131 H POC Glucose 118 H Calcium 8.3 L Ionized Calcium Total Bilirubin 1.80 H AST 323 H ALT 609 H Total Creatine Kinase Troponin T NT-Pro-B Natriuret Pep Total Protein 9.3 H Albumin 2.9 L LDL Cholesterol Direct HDL Cholesterol Arterial Blood Glucose 04/15/21 04/15/21 11:40 18:30 WBC Hgb Hct MCV MCH MCHC RDW Seg Neuts % (Manual) Lymphocytes % (Manual) Nucleated RBC % Seg Neutrophils # Man Lymphocytes # (Manual) Monocytes # (Manual) ABG pH POC ABG pCO2 POC ABG pO2 ABG pO2 ABG HCO3 ABG Base Excess ABG Hemoglobin ABG Oxyhemoglobin ABG Sodium ABG Chloride ABG Glucose Oxyhemoglobin Carboxyhemoglobin Sodium Potassium Chloride Carbon Dioxide BUN Creatinine Glucose POC Glucose 139 H 130 H Calcium Ionized Calcium Total Bilirubin AST ALT Total Creatine Kinase Troponin T NT-Pro-B Natriuret Pep Total Protein Albumin LDL Cholesterol Direct HDL Cholesterol Arterial Blood Glucose
[2021-04-16] MEDS: HYDROmorphone 1 MG/1 ML INJ IV PRN (02:34)
[2021-04-16] MEDS: HEPARIN 5,000 UNIT/1 ML VIAL SUB-Q SCH ×3 (05:07→21:39)
[2021-04-16] MEDS: BENZONATATE 100 MG CAP PO SCH ×3 (05:07→21:39)
[2021-04-16] MEDS: FUROSEMIDE 40 MG TAB PO SCH (05:07)
[2021-04-16 05:13] LABS: Mean Corpuscular HGB Conc 29 % (30-34); Mean Corpuscular Volume 74 fl (79-97); Platelet Count 254 K/mm3 (140-440); Red Blood Count 4.11 M/mm3 (3.65-5.03)
[2021-04-16 05:14] LABS: Hematocrit 30.2 % (30.3-42.9); Hemoglobin 8.8 gm/dl (10.1-14.3); Red Cell Distribution Width 24.5 % (13.2-15.2)
[2021-04-16 05:35] LABS: Albumin 3.2 g/dL (3.9-5); Calcium 8.9 mg/dL (8.4-10.2)
--- NOTE | 2021-04-16 08:03 | Progress Note ---
Assessment and Plan Assessment and plan: (1) Non-ST elevation HI (NSTEMI) type II Procardia Current Visit: Yes Status: Acute Plan to address problem: Admit the patient to the medical telemetry. Aspirin 325 mg p.o. daily. Lipitor 40 mg p.o. daily. Nitroglycerin as needed. We do the serial cardiac enzyme. We also consult cardiology for evaluation and order echocardiogram. (2) Acute exacerbation of CHF (congestive heart failure) Current Visit: Yes Status: Acute Plan to address problem: Fluid restriction. Maintain input output. Lasix 40 mg IV every 12 hours. Oxygen via nasal cannula 3 L/min. DuoNeb by nebulizer every 4 hours. Echocardiogram. Cardiology consult (3) Hypertension Current Visit: Yes Status: Acute Plan to address problem: We will continue the home medication. Hydralazine 10 mg IV every 6 hours as needed. We will monitor the blood pressure closely (4) COPD (chronic obstructive pulmonary disease) Current Visit: Yes Status: Acute Plan to address problem: Oxygen by nasal cannula 3 L/min. DuoNeb via nebulizer every 4 hours. Albuterol via nebulizer every 4 hours as needed. Super (5) Morbid obesity Current Visit: Yes Status: Acute Plan to address problem: We counseled regarding weight reduction. Outpatient follow-up with bariatric surgeon (6) Hyperglycemia Current Visit: Yes Status: Acute Plan to address problem: We will give 1 ampoule of D50. We will put the patient on cardiac diet. We will monitor the blood glucose closely (7) acute kidney injury with vasomotor nephropathy (8) Lymphedema of the abdominal wall (9)Anemia of chronic disease (10)Possible passive congestive hepatic failure with underlying NAFLD (11) DVT prophylaxis Current Visit: No Status: Acute Plan to address problem: Heparin 5000 units subcu every 8 hours for DVT prophylaxis. Pepcid 20 mg p.o. twice daily for GI prophylaxis. Patient is a full code 04/09 -Patient is on heparin drip for non-STEMI, cardiology is following. -Patient is off Lasix and SUNG inhibitors because of GILBERTO. -Kidney function is worsening overnight and I put a consult for nephrology. -Patient is hypotensive and blood pressure from this morning was 101/41. We will continue to monitor. And if it is dropping we we will give him fluid. -Echo was done and EF of 50 to 55%. Diastolic dysfunction is indeterminate. Management per cardiology -Patient has COPD continues on dexamethasone, nebulizer treatment as needed. -Patient has hyponatremia and hyperkalemia. I give the patient Kayexalate. Monitor electrolytes. Will follow nephrology for additional recommendation. 04/10 -Renal function is worsening, nephrology is following -Blood pressure is better today -Hyperkalemia; I added Kayexalate -Morbid obesity 04/11 -Slight improvement in creatinine. Hyponatremia worsened. Nephrology is following and put the patient back on Lasix. -Blood PRESSURE IS BETTER today -Potassium this morning was 5.8, I ordered 60 g of Kayexalate -Morbidly obese -Obesity hypoventilation syndrome 04/12 -Creatinine is improving and this morning was 2.4 -Hyponatremia improved this morning was 134. Patient is on Lasix -Blood pressure is better -Patient is on 10 L of oxygen; worsened -Morbidly obese, CLAUDIA 04/13: Follow ordered ultrasound of abdomen, per Physician unable to get CT. I ordered an ABG due to my concern about her breathing pattern this morning, patient may benefit from. Will try to establish if patient has a primary pulmonary doctor. ABG is showing consistent with Respiratory Acidosis. Will place on BIPAP now. May need to transfer to IMCU for closer monitoring. Patient likely with Obesity Hypoventilation syndrome. cardiology work up, ongoing. RENAL SHOWING SOME IMPROVEMENT Guarded prognosis 04/14: Patient seen and examined today identified some lesion under the pannus will obtain wound care and wound surgeon evaluation. Nephrology input noted continue diuresis and stop the sodium tabs creatinine is stable. I did discuss with the family and updated them. We will continue to hold SUNG and ARB and if pressures continue to drop may need to hold diuresis also despite as written above. Monitor labs including H&H. She is more awake review of ABG shows improving CO2. Will discuss with case management as patient may need BiPAP on discharge home. I also updated the family 04/15: Patient showing some clinical improvement. Liver enzymes is showing mild improvement although bilirubin increased slightly. GI input noted and as discussed by his notes below "Abnormal liver enzymes in hepatocellular pattern. broad ddx and likely multifactorial causes including NAFLD, congestive hepatopathy, possibly DILI. will check viral hep serologies. US with limited views, possible coarsening of the liver" Patient also evaluated by surgery noted with the lymphedema of abdominal wall and open wound of the abdominal wall without penetration into the abdominal cavity with recommendation to pack the wounds daily with mesalt. Need to maintain dry environment discussed with nursing staff. Elevate the pannus and optimize nutrition for which I will get nutritional consult. No surgical intervention at this time. Patient is bedbound when I asked when last she ambulated she said while "I guess he has not worked" but it has been a while. Unfortunately the LTAC center unwilling to accept the patient will discuss with pulmonary and with case management about obtaining BiPAP for this patient and possible SNF referral. 04/16: Patient this morning and was noted significantly lethargic and unrespons mitch respiratory and a code to be called. The patient resuscitated without any invasive procedure. ABG was obtained showed a CO2 of 142. Despite using BiPAP for some time through the night, sure how long she used it for. I have discontinued all IV opioids and recommend no IV opioids for this patient at this time. I also discontinued p.o. medications as an essential medication and change to IV. We will repeat an ABG in an hour to see if there is some improvement. Patient remains at high risk for possible intubation. Clinical condition is guarded History Interval history: Patient seen and examined, this morning had a code called due to unresponsiveness. Patient became awake shortly after invasive intervention was done Hospitalist Physical - Physical exam Narrative exam: VITAL SIGNS: Reviewed. GENERAL: The patient is morbidly obese, initially very lethargic a BiPAP Placed she is waking up some, Vital signs as documented. HEAD: No signs of head trauma. EYES: Pupils are equal. Extraocular motions intact. EARS: Hearing grossly intact. MOUTH: Oropharynx is normal. NECK: No adenopathy, no JVD. CHEST: Chest with diminished breath sounds bilaterally. No wheezes, rales, or rhonchi. CARDIAC: Regular rate and rhythm. S1 and S2, without murmurs, gallops, or rubs. VASCULAR: No Edema. Peripheral pulses normal and equal in all extremities. ABDOMEN: enlarged pannus, lymphedema with thickened skin, non tender and non distended. No rebound or guarding, and no masses palpated. Bowel Sounds normal. MUSCULOSKELETAL: Good range of motion of all major joints. Extremities without clubbing, cyanosis or edema. NEUROLOGIC EXAM: Alert and oriented x 3 No focal sensory or strength deficits. Speech normal. Follows commands. PSYCHIATRIC: Mood normal. SKIN: detail exam as documented in skin assessment - Constitutional Vitals: Temp Pulse Resp BP Pulse Ox 97.9 F 108 H 23 139/92 83 L 04/16/21 07:23 04/16/21 06:00 04/16/21 06:00 04/16/21 06:00 04/16/21 06:00 General appearance: Present: no acute distress HEART Score - HEART Score Troponin: Troponin T 0.078 ng/mL (0.00-0.029) H D 04/08/21 13:03 Results - Labs CBC & Chem 7: 04/16/21 04:53 04/16/21 04:53 Labs: Laboratory Last Values WBC 12.5 K/mm3 (4.5-11.0) H 04/16/21 04:53 RBC 4.11 M/mm3 (3.65-5.03) 04/16/21 04:53 Hgb 8.8 gm/dl (10.1-14.3) L 04/16/21 04:53 Hct 30.2 % (30.3-42.9) L 04/16/21 04:53 MCV 74 fl (79-97) L 04/16/21 04:53 MCH 21 pg (28-32) L 04/16/21 04:53 MCHC 29 % (30-34) L 04/16/21 04:53 RDW 24.5 % (13.2-15.2) H 04/16/21 04:53 Plt Count 254 K/mm3 (140-440) 04/16/21 04:53 Add Manual Diff Complete 04/12/21 14:11 Total Counted 100 04/12/21 14:11 Seg Neuts % (Manual) 86.0 % (40.0-70.0) H 04/12/21 14:11 Band Neutrophils % 1.0 % 04/12/21 14:11 Lymphocytes % (Manual) 6.0 % (13.4-35.0) L 04/12/21 14:11 Reactive Lymphs % (Man) 1.0 % 04/12/21 14:11 Monocytes % (Manual) 4.0 % (0.0-7.3) 04/12/21 14:11 Metamyelocytes % 2.0 % 04/12/21 14:11 Myelocytes % 2.0 % 04/08/21 04:03 Nucleated RBC % Not Reportable 04/12/21 14:11 Seg Neutrophils # Man 12.6 K/mm3 (1.8-7.7) H 04/12/21 14:11 Band Neutrophils # 0.1 K/mm3 04/12/21 14:11 Lymphocytes # (Manual) 0.9 K/mm3 (1.2-5.4) L 04/12/21 14:11 Abs React Lymphs (Man) 0.1 K/mm3 04/12/21 14:11 Monocytes # (Manual) 0.6 K/mm3 (0.0-0.8) 04/12/21 14:11 Eosinophils # (Manual) 0.0 K/mm3 (0.0-0.4) 04/12/21 14:11 Basophils # (Manual) 0.0 K/mm3 (0.0-0.1) 04/12/21 14:11 Metamyelocytes # 0.3 K/mm3 04/12/21 14:11 Myelocytes # 0.0 K/mm3 04/12/21 14:11 Promyelocytes # 0.0 K/mm3 04/12/21 14:11 Blast Cells # 0.0 K/mm3 04/12/21 14:11 WBC Morphology Not Reportable 04/12/21 14:11 WBC Morphology TNR 04/12/21 14:11 Hypersegmented Neuts Not Reportable 04/12/21 14:11 Hyposegmented Neuts Not Reportable 04/12/21 14:11 Hypogranular Neuts Not Reportable 04/12/21 14:11 Smudge Cells Not Reportable 04/12/21 14:11 Toxic Granulation Not Reportable 04/12/21 14:11 Toxic Vacuolation Not Reportable 04/12/21 14:11 Dohle Bodies Not Reportable 04/12/21 14:11 Pelger-Huet Anomaly Not Reportable 04/12/21 14:11 Ana Cristina Rods Not Reportable 04/12/21 14:11 Platelet Estimate Consistent w auto 04/12/21 14:11 Clumped Platelets Not Reportable 04/12/21 14:11 Plt Clumps, EDTA Not Reportable 04/12/21 14:11 Large Platelets Not Reportable 04/12/21 14:11 Giant Platelets Not Reportable 04/12/21 14:11 Platelet Satelliting Not Reportable 04/12/21 14:11 Plt Morphology Comment Not Reportable 04/12/21 14:11 RBC Morphology Not Reportable 04/12/21 14:11 Dimorphic RBCs Not Reportable 04/12/21 14:11 Polychromasia Few 04/12/21 14:11 Hypochromasia 1+ 04/12/21 14:11 Poikilocytosis Not Reportable 04/12/21 14:11 Anisocytosis Not Reportable 04/12/21 14:11 Microcytosis Not Reportable 04/12/21 14:11 Macrocytosis Not Reportable 04/12/21 14:11 Spherocytes Not Reportable 04/12/21 14:11 Pappenheimer Bodies Not Reportable 04/12/21 14:11 Sickle Cells Not Reportable 04/12/21 14:11 Target Cells 1+ 04/12/21 14:11 Tear Drop Cells Few 04/12/21 14:11 Ovalocytes Not Reportable 04/12/21 14:11 Helmet Cells Not Reportable 04/12/21 14:11 Saravia-Cando Bodies Not Reportable 04/12/21 14:11 [place] Rings Not Reportable 04/12/21 14:11 [place] Cells Not Reportable 04/12/21 14:11 Bite Cells Not Reportable 04/12/21 14:11 Crenated Cell Not Reportable 04/12/21 14:11 Elliptocytes Not Reportable 04/12/21 14:11 Acanthocytes (Spur) Not Reportable 04/12/21 14:11 Rouleaux Not Reportable 04/12/21 14:11 Hemoglobin C Crystals Not Reportable 04/12/21 14:11 Schistocytes Not Reportable 04/12/21 14:11 Malaria parasites Not Reportable 04/12/21 14:11 Tyshawn Bodies Not Reportable 04/12/21 14:11 Hem Pathologist Commnt No 04/12/21 14:11 ABG pH 7.291 (7.320-7.450) L 04/14/21 12:03 POC ABG pCO2 75.5 mmHg (32.0-48.0) H 04/14/21 12:03 ABG pCO2 86.9 mm Hg 04/13/21 18:40 POC ABG pO2 76.2 mmHg (83-108) L 04/14/21 12:03 ABG pO2 81.8 mm Hg (80.0-90.0) 04/13/21 18:40 POC ABG HCO3 35.6 04/14/21 12:03 ABG HCO3 36.2 mmol/L (20.0-26.0) H 04/13/21 18:40 ABG O2 Saturation 93.3 (0-100) 04/14/21 12:03 ABG O2 Content 10.4 (0.0-44) 04/13/21 18:40 POC ABG Base Excess 7.2 04/14/21 12:03 ABG Base Excess 7.4 mmol/L (-2.0-3.0) H 04/13/21 18:40 ABG Hemoglobin 9.9 (12.0-17.5) L 04/14/21 12:03 ABG Oxyhemoglobin 91.0 (94-98) L 04/14/21 12:03 ABG Carboxyhemoglobin 1.9 % (0.0-5.0) 04/13/21 18:40 ABG Methemoglobin 0.3 (0.0-1.5) 04/14/21 12:03 ABG Sodium 134.9 mmol/L (136.0-145.0) L 04/14/21 12:03 ABG Potassium 4.0 mmol/L (3.40-4.50) 04/14/21 12:03 ABG Chloride 93.0 mmol/L (98-107) L 04/14/21 12:03 ABG Glucose 146 mg/dL (65-95) H 04/14/21 12:03 Oxyhemoglobin 93.7 % (95.0-99.0) L 04/13/21 18:40 Carboxyhemoglobin 2.2 (0.5-1.5) H 04/14/21 12:03 FiO2 30 % 04/13/21 18:40 FiO2 % 36.0 04/14/21 12:03 Sodium 139 mmol/L (137-145) 04/16/21 04:53 Potassium 4.5 mmol/L (3.6-5.0) D 04/16/21 04:53 Chloride 96.9 mmol/L (98-107) L 04/16/21 04:53 Carbon Dioxide 35 mmol/L (22-30) H 04/16/21 04:53 Anion Gap 12 mmol/L 04/16/21 04:53 BUN 65 mg/dL (7-17) H 04/16/21 04:53 Creatinine 1.5 mg/dL (0.6-1.2) H 04/16/21 04:53 Estimated GFR 48 ml/min 04/16/21 04:53 BUN/Creatinine Ratio 43 % 04/16/21 04:53 Glucose 142 mg/dL (65-100) H 04/16/21 04:53 POC Glucose 138 mg/dL (70-105) H 04/16/21 07:16 Osmolality 301 Mosm/kg 04/09/21 23:15 Calcium 8.9 mg/dL (8.4-10.2) 04/16/21 04:53 Ionized Calcium 3.6 mg/dL (4.8-5.6) L 04/09/21 23:15 Total Bilirubin 1.50 mg/dL (0.1-1.2) H 04/16/21 04:53 AST 251 units/L (5-40) H 04/16/21 04:53 ALT 572 units/L (7-56) H 04/16/21 04:53 Alkaline Phosphatase 101 units/L (35-129) 04/16/21 04:53 Total Creatine Kinase 1712 units/L (30-135) H 04/10/21 10:04 Troponin T 0.078 ng/mL (0.00-0.029) H D 04/08/21 13:03 NT-Pro-B Natriuret Pep 7573 pg/mL (0-450) H 04/07/21 22:04 Total Protein 10.1 g/dL (6.3-8.2) H 04/16/21 04:53 Albumin 3.2 g/dL (3.9-5) L 04/16/21 04:53 Albumin/Globulin Ratio 0.5 % 04/16/21 04:53 Triglycerides 105 mg/dL (2-149) 04/07/21 22:04 Cholesterol 85 mg/dL (50-199) 04/07/21 22:04 LDL Cholesterol Direct 47 mg/dL (50-130) L 04/07/21 22:04 HDL Cholesterol 25 mg/dL (40-59) L 04/07/21 22:04 Cholesterol/HDL Ratio 3.40 % 04/07/21 22:04 Total Cortisol 41.3 mcg/dL () 04/10/21 10:04 Arterial Blood Glucose 146 mg/dL (65-95) H 04/14/21 12:03 Urine Osmolality 157 Mosm/kg 04/09/21 18:46 Urine Sodium 16 mmol/L 04/09/21 18:46 Coronavirus (PCR) Negative (Negative) 04/14/21 Unknown Hepatitis A IgM Ab Non-reactive (NonReactive) 04/14/21 18:45 Hep Bs Antigen Nonreactive (Negative) 04/14/21 18:45 Hepatitis C Antibody Non-reactive (NonReactive) 04/14/21 18:45 Zambrano/IV: Voiding Method Indwelling Catheter Active Medications - Current Medications Current Medications: Generic Name Dose Route Start Last Admin Trade Name Freq PRN Reason Stop Dose Admin Acetaminophen 650 mg 04/08/21 03:00 Acetaminophen 325 Mg Tab PO Q4H PRN Pain MILD(1-3)/Fever >100.5/BROWN Albuterol 2.5 mg 04/08/21 03:00 Albuterol 2.5 Mg/3 Ml Nebu IH Q4HRT PRN Shortness Of Breath Albuterol/Ipratropium 1 ampul 04/08/21 08:00 04/15/21 22:27 Ipratropium/Albuterol Sulfate 3 Ml Ampul.Neb IH 1 ampul TIDRT EKATERINA Administration Aspirin 325 mg 04/09/21 10:00 04/15/21 10:18 Aspirin Ec 325 Mg Tab PO 325 mg QDAY EKATERINA Administration Atorvastatin Calcium 40 mg 04/08/21 22:00 04/15/21 22:16 Atorvastatin 40 Mg Tab PO 40 mg QHS EKATERINA Administration Benzonatate 100 mg 04/08/21 06:00 04/16/21 05:07 Benzonatate 100 Mg Cap PO 100 mg Q8HR EKATERINA Administration Famotidine 20 mg 04/15/21 10:00 04/15/21 22:16 Famotidine 20 Mg Tab PO 20 mg BID EKATERINA Administration Furosemide 40 mg 04/13/21 18:00 04/16/21 05:07 Furosemide 40 Mg Tab PO 40 mg 0600,1800 EKATERINA Administration Guaifenesin 200 mg 04/12/21 14:47 Guaifenesin 100 Mg/5 Ml Oral Liqd PO Q4H PRN Cough Heparin Sodium (Porcine) 5,000 unit 04/08/21 06:00 04/16/21 05:07 Heparin 5,000 Unit/1 Ml Vial SUB-Q 5,000 unit Q8HR EKATERINA Administration Hydromorphone HCl 0.5 mg 04/08/21 03:00 04/16/21 02:34 Hydromorphone 1 Mg/1 Ml Inj IV 0.5 mg Q3H PRN Administration Pain , Severe (7-10) Methylprednisolone 4 mg 04/08/21 10:00 04/15/21 10:18 Methylprednisolone 4 Mg Tab PO 4 mg DAILY EKATERINA Administration Nitroglycerin 0.4 mg 04/08/21 03:00 Nitroglycerin 0.4 Mg Tab Subl SL Q5M PRN Chest Pain Nystatin 1 applic 04/08/21 18:00 04/15/21 22:46 Nystatin Powder 15 Gm TP 1 applic BID EKATERINA Administration Ondansetron HCl 4 mg 04/08/21 03:00 04/15/21 23:51 Ondansetron 4 Mg/2 Ml Inj IV 4 mg Q8H PRN Administration Nausea And Vomiting Oxycodone/Acetaminophen 1 tab 04/08/21 03:00 04/13/21 01:52 Oxycodone /Acetaminophen 5-325mg Tab PO 1 tab Q6H PRN Administration Pain, Moderate (4-6) Sodium Chloride 10 ml 04/08/21 10:00 04/15/21 22:17 Sodium Chloride 0.9% 10 Ml Flush Syringe IV 10 ml BID EKATERINA Administration Sodium Chloride 10 ml 04/08/21 03:00 Sodium Chloride 0.9% 10 Ml Flush Syringe IV PRN PRN LINE FLUSH Tramadol HCl 50 mg 04/08/21 03:00 Tramadol 50 Mg Tab PO Q6H PRN Pain, Moderate (4-6) Nutrition/Malnutrition Assess - Dietary Evaluation Nutrition/Malnutrition Findings: Nutrition Notes Start: 04/08/21 14:21 Freq: Status: Active Protocol: Document 04/13/21 17:08 GB (Rec: 04/13/21 17:14 GB [email or web address]) Nutrition Notes Initial or Follow up Reassessment Current Diagnosis Hypertension Other Pertinent Diagnosis Dyspnea, respiratory distress, morbid obesity Current Diet Regular Labs/Tests 04/13: Na 134, BUN 63, creatinine 2.2, glucose 159, Ca 7.8 Pertinent Medications Lasix, NaCl IV flushes Height 5 ft 4 in Weight 287.5 kg [place] Body Weight (kg) 54.54 BMI 108.8 Weight change and time frame expect weight fluctuations r/t fluid therapy, CHF complications Weight Status Morbidly Obese Subjective/Other Information Per MD notes 04/13: fluid restrictions, on nasal cannula 3L, possibly obesity hypoventilation syndrome, recommended to bariatric consult Percent of energy/protein needs met: Meals and snacks provided meet 100% of estimated energy needs. Current po intake of meals recorded average 50%. Burn Absent Trauma Absent GI Symptoms None Food Allergy No Current % PO Fair (50-74%) Minimum of two criteria No #1 Nutrition Diagnosis Overweight/obesity Comments: Discussed diet/life style changes using small goal successes to advancement, encouraged outpatient RD counseling at bariatric center Etiology dyspnea, respiratory distress As Evidenced by Signs and Symptoms BMI 103, IBW 498% Diagnosis Progress(for reassessment Continues documentation) Is patient on ventilator? No Is Patient Ambulatory and/or Out of Bed No REE-([place]-confined to bed) 4277.724 Kcal/Kg value to use for calculation 10 Approximate Energy Requirements Using 2875 kcal/Kg Calculation Used for Recommendations Kcal/kg Additional Notes Protein 0.6 g/kg r/t BMI over 50: 163g Fluids: 1ml/kcal or per MD Nutrition Intervention Change Diet Order: continue with current diet Goal #1 Pt to contact and make appointment with outpatient RD in bariatric center Goal #2 weight to decrease -1% during LOS Follow-Up By: 04/20/21 Additional Comments f/u for weight loss, po intake
--- NOTE | 2021-04-16 08:59 | Progress Note ---
Subjective Date of service: 04/16/21 Principal diagnosis: Acute on chronic renal insufficiency Interval history: Assessment Acute kidney injury, unknown baseline. Renal ultrasound notes poor visualization due to body habitus. Hypervolemic Hyponatremia Hyperkalemia Hypocalcemia Morbid obesity Recommendations Continue diuresis stopped Na tabls cr is stable today echo noted, likely diastolic disease rec lasix 40mg po bid, iv if not responsive to diuresis rise in bun noted S/p Kayexalate on admission Maintain MAP more than 65 Hold SUNG/ARB at this time Hold diuretics given soft pressures Renally dose medications Avoid nephrotoxins Renal diet will follow lytes prn Subjective: Principal diagnosis: Acute on chronic renal insufficiency Interval history: Patient was seen for her renal issues Nursing, interdisciplinary and consult notes were reviewed Vitals, input and output, medications and labs were reviewed Remains on NC Objective - Exam Narrative Exam: General: Morbid obesity HEENT: Oral mucosa moist Neck: Supple, no JVD Chest: Clear to auscultation bilaterally Heart: RRR, S1 and S2, no pericardial rub Abdomen: Soft, nontender, no renal bruit Extremity: No peripheral cyanosis, edema Neurological: Awake and alert Dermatology: Unable to assess Psych: Calm and cooperative Musculoskeletal: No joint effusion Objective - Vital Signs Vital signs: Vital Signs - 12hr 04/15/21 04/15/21 04/15/21 21:00 21:30 22:00 Temperature Pulse Rate 94 H 94 H 96 H Pulse Rate [ Anterior Bilateral Throughout] Pulse Rate [ From Monitor] Respiratory 16 16 16 Rate Respiratory Rate [Anterior Bilateral Throughout] Blood Pressure 107/58 109/57 101/50 O2 Sat by Pulse 98 98 97 Oximetry 04/15/21 04/15/21 04/15/21 22:08 22:24 22:27 Temperature Pulse Rate 95 H 94 H Pulse Rate [ Anterior Bilateral Throughout] Pulse Rate [ From Monitor] Respiratory 8 L 23 Rate Respiratory Rate [Anterior Bilateral Throughout] Blood Pressure 101/50 103/54 O2 Sat by Pulse 98 98 98 Oximetry 04/15/21 04/15/21 04/15/21 22:28 22:30 23:00 Temperature Pulse Rate 93 H 96 H Pulse Rate [ 94 H Anterior Bilateral Throughout] Pulse Rate [ From Monitor] Respiratory 22 15 Rate Respiratory 20 Rate [Anterior Bilateral Throughout] Blood Pressure 113/63 128/90 O2 Sat by Pulse 98 97 Oximetry 04/15/21 04/16/21 04/16/21 23:30 00:00 00:30 Temperature 98.1 F Pulse Rate 95 H 96 H 96 H Pulse Rate [ Anterior Bilateral Throughout] Pulse Rate [ 98 H From Monitor] Respiratory 20 14 14 Rate Respiratory Rate [Anterior Bilateral Throughout] Blood Pressure 140/69 149/98 165/105 O2 Sat by Pulse 97 94 99 Oximetry 04/16/21 04/16/21 04/16/21 01:00 01:30 02:00 Temperature Pulse Rate 97 H 100 H 100 H Pulse Rate [ Anterior Bilateral Throughout] Pulse Rate [ From Monitor] Respiratory 27 H 23 14 Rate Respiratory Rate [Anterior Bilateral Throughout] Blood Pressure 170/118 194/116 128/79 O2 Sat by Pulse 97 97 82 L Oximetry 04/16/21 04/16/21 04/16/21 02:30 03:00 03:30 Temperature Pulse Rate 100 H 104 H 105 H Pulse Rate [ Anterior Bilateral Throughout] Pulse Rate [ From Monitor] Respiratory 27 H 18 18 Rate Respiratory Rate [Anterior Bilateral Throughout] Blood Pressure 143/98 135/93 137/95 O2 Sat by Pulse 94 95 94 Oximetry 04/16/21 04/16/21 04/16/21 04:00 04:30 05:00 Temperature 97.8 F Pulse Rate 106 H 107 H 106 H Pulse Rate [ Anterior Bilateral Throughout] Pulse Rate [ 98 H From Monitor] Respiratory 21 19 24 Rate Respiratory Rate [Anterior Bilateral Throughout] Blood Pressure 132/99 147/101 142/101 O2 Sat by Pulse 94 93 91 Oximetry 04/16/21 04/16/21 04/16/21 05:30 06:00 06:30 Temperature Pulse Rate 107 H 108 H 108 H Pulse Rate [ Anterior Bilateral Throughout] Pulse Rate [ From Monitor] Respiratory 23 23 27 H Rate Respiratory Rate [Anterior Bilateral Throughout] Blood Pressure 126/86 139/92 125/77 O2 Sat by Pulse 85 83 L 82 L Oximetry 04/16/21 04/16/21 04/16/21 07:00 07:23 07:30 Temperature 97.9 F Pulse Rate 128 H 105 H Pulse Rate [ Anterior Bilateral Throughout] Pulse Rate [ From Monitor] Respiratory 24 18 Rate Respiratory Rate [Anterior Bilateral Throughout] Blood Pressure 181/128 139/98 O2 Sat by Pulse 91 100 Oximetry 04/16/21 04/16/21 04/16/21 08:00 08:15 08:30 Temperature Pulse Rate 105 H 105 H 105 H Pulse Rate [ Anterior Bilateral Throughout] Pulse Rate [ From Monitor] Respiratory Rate Respiratory Rate [Anterior Bilateral Throughout] Blood Pressure 139/98 139/98 139/98 O2 Sat by Pulse 88 94 87 Oximetry - Lab 04/16/21 04:53 04/16/21 04:53 Most recent lab results ABG pH 7.086 (7.320-7.450) L 04/16/21 07:32 ABG pCO2 86.9 mm Hg 04/13/21 18:40 ABG pO2 81.8 mm Hg (80.0-90.0) 04/13/21 18:40 ABG HCO3 36.2 mmol/L (20.0-26.0) H 04/13/21 18:40 ABG O2 Saturation 99.6 (0-100) 04/16/21 07:32 Calcium 8.9 mg/dL (8.4-10.2) 04/16/21 04:53 Urine Sodium 16 mmol/L 04/09/21 18:46 Medications & Allergies - Medications Allergies/Adverse Reactions: Allergies No Known Allergies Allergy (Unverified 01/27/17 11:17) Home Medications: Home Medications Medication Instructions Recorded Confirmed Last Taken Type Acetaminophen [Acetaminophen TAB] 325 mg PO Q4H PRN #30 tablet 06/30/17 08/08/20 Unknown Rx ALBUTEROL NEB's [Proventil 0.083% 2.5 mg IH Q3HRT PRN #30 day 08/10/20 Unknown Rx NEBS] Albuterol Mdi (or & Nicu Only) 2 puff IH QID PRN #1 inhalation 08/10/20 Unknown Rx [ProAir HFA Inhaler] Azithromycin [Zithromax Z-BIN] 0 mg PO DAILY #1 tab 08/10/20 Unknown Rx Benzonatate [Tessalon Perles] 100 mg PO Q8HR #15 capsule 08/10/20 Unknown Rx Famotidine [Pepcid] 20 mg PO BID #14 tablet 08/10/20 Unknown Rx Ipratropium/Albuterol Sulfate 1 ampul IH TIDRT #30 day 08/10/20 Unknown Rx [DUONEB *Not for PRN Use*] hydroCHLOROthiazide [HCTZ] 25 mg PO QDAY tablet 08/10/20 Unknown Rx hydroCHLOROthiazide [HCTZ] 25 mg PO QDAY #30 tablet 08/10/20 Unknown Rx methylPREDNISolone [Medrol 4MG 4 mg PO DAILY #1 tab.ds.pk 08/10/20 Unknown Rx DOSEPAK (21 tabs)] Active Medications: Generic Name Dose Route Start Last Admin Trade Name Freq PRN Reason Stop Dose Admin Acetaminophen 650 mg 04/08/21 03:00 Acetaminophen 325 Mg Tab PO Q4H PRN Pain MILD(1-3)/Fever >100.5/BROWN Albuterol 2.5 mg 04/08/21 03:00 Albuterol 2.5 Mg/3 Ml Nebu IH Q4HRT PRN Shortness Of Breath Albuterol/Ipratropium 1 ampul 04/08/21 08:00 04/15/21 22:27 Ipratropium/Albuterol Sulfate 3 Ml Ampul.Neb IH 1 ampul TIDRT EKATERINA Administration Aspirin 325 mg 04/09/21 10:00 04/15/21 10:18 Aspirin Ec 325 Mg Tab PO 325 mg QDAY EKATERINA Administration Atorvastatin Calcium 40 mg 04/08/21 22:00 04/15/21 22:16 Atorvastatin 40 Mg Tab PO 40 mg QHS EKATERINA Administration Benzonatate 100 mg 04/08/21 06:00 04/16/21 05:07 Benzonatate 100 Mg Cap PO 100 mg Q8HR EKATERINA Administration Furosemide 40 mg 04/16/21 18:00 Furosemide 40 Mg/4 Ml Inj IV 0600,1800 EKATERINA Furosemide 20 mg 04/16/21 09:00 Furosemide 40 Mg/4 Ml Inj IV 04/16/21 10:00 ONCE@0900 NR Guaifenesin 200 mg 04/12/21 14:47 Guaifenesin 100 Mg/5 Ml Oral Liqd PO Q4H PRN Cough Heparin Sodium (Porcine) 5,000 unit 04/08/21 06:00 04/16/21 05:07 Heparin 5,000 Unit/1 Ml Vial SUB-Q 5,000 unit Q8HR EKATERINA Administration Methylprednisolone Sodium Succinate 20 mg 04/16/21 10:00 Methylprednisolone Sod Succinate 40 Mg/1 Ml Inj IV Q12HR EKATERINA Nitroglycerin 0.4 mg 04/08/21 03:00 Nitroglycerin 0.4 Mg Tab Subl SL Q5M PRN Chest Pain Nystatin 1 applic 04/08/21 18:00 04/15/21 22:46 Nystatin Powder 15 Gm TP 1 applic BID EKATERINA Administration Ondansetron HCl 4 mg 04/08/21 03:00 04/15/21 23:51 Ondansetron 4 Mg/2 Ml Inj IV 4 mg Q8H PRN Administration Nausea And Vomiting Oxycodone/Acetaminophen 1 tab 04/08/21 03:00 04/13/21 01:52 Oxycodone /Acetaminophen 5-325mg Tab PO 1 tab Q6H PRN Administration Pain, Moderate (4-6) Pantoprazole Sodium 40 mg 04/16/21 10:00 Pantoprazole 40 Mg Inj IV QDAY EKATERINA Sodium Chloride 10 ml 04/08/21 10:00 04/15/21 22:17 Sodium Chloride 0.9% 10 Ml Flush Syringe IV 10 ml BID EKATERINA Administration Sodium Chloride 10 ml 04/08/21 03:00 Sodium Chloride 0.9% 10 Ml Flush Syringe IV PRN PRN LINE FLUSH Tramadol HCl 50 mg 04/08/21 03:00 Tramadol 50 Mg Tab PO Q6H PRN Pain, Moderate (4-6)
[2021-04-16] MEDS ORDERED: FUROSEMIDE 40 MG/4 ML INJ IV NR (09:00)
[2021-04-16] MEDS: PANTOPRAZOLE 40 MG INJ IV SCH (09:01)
[2021-04-16] MEDS: methylPREDNISolone Sod Succinate 40 MG/1 ML INJ IV SCH ×2 (09:01→21:37)
[2021-04-16] MEDS: IPRATROPIUM/ALBUTEROL SULFATE 3 ML AMPUL.NEB IH SCH ×3 (10:31→21:27)
[2021-04-16] MEDS: ASPIRIN EC 325 MG TAB PO SCH (10:59)
[2021-04-16] MEDS: NYSTATIN POWDER 15 GM TP SCH ×2 (11:01→21:41)
--- NOTE | 2021-04-16 13:10 | Gastroenterology Progress Note ---
Assessment and Plan abnormal liver enzymes - down trend last couple days, suspect multifactorial as previously stated in consult; monitor levels but otherwise no other work-up at this time from gi stand point especially given other medical issues/co-morbiditi es. will sign off, please call as needed or with questions. Subjective Date of service: 04/16/21 Principal diagnosis: abnormal liver enzymes Interval history: events from this morning reviewed regarding pt's change in mental status/decreased responsiveness; remains on bipap Objective - Exam Narrative Exam: gen: morbidly obese, on bipap abd: obese, nt - Constitutional Vitals: Temp Pulse Resp BP Pulse Ox 98.5 F 102 H 16 132/91 95 04/16/21 12:09 04/16/21 11:30 04/16/21 11:30 04/16/21 11:30 04/16/21 11:30 - Labs CBC & Chem 7: 04/16/21 04:53 04/16/21 04:53 Labs: Laboratory Results - last 24 hr 04/15/21 04/15/21 04/16/21 18:30 22:44 04:53 WBC 12.5 H RBC 4.11 Hgb 8.8 L Hct 30.2 L MCV 74 L MCH 21 L MCHC 29 L RDW 24.5 H Plt Count 254 ABG pH POC ABG pCO2 POC ABG pO2 POC ABG HCO3 ABG O2 Saturation POC ABG Base Excess ABG Hemoglobin ABG Oxyhemoglobin ABG Methemoglobin ABG Sodium ABG Potassium ABG Chloride ABG Glucose Carboxyhemoglobin FiO2 % Sodium Potassium Chloride Carbon Dioxide Anion Gap BUN Creatinine Estimated GFR BUN/Creatinine Ratio Glucose POC Glucose 130 H 123 H Calcium Total Bilirubin AST ALT Alkaline Phosphatase Total Protein Albumin Albumin/Globulin Ratio Arterial Blood Glucose Arterial Blood Ionized Calcium 04/16/21 04/16/21 04/16/21 04:53 07:16 07:32 WBC RBC Hgb Hct MCV MCH MCHC RDW Plt Count ABG pH 7.086 L POC ABG pCO2 142.2 H POC ABG pO2 196.3 H POC ABG HCO3 41.8 ABG O2 Saturation 99.6 POC ABG Base Excess 8.7 ABG Hemoglobin 10.0 L ABG Oxyhemoglobin 98.0 ABG Methemoglobin 0 ABG Sodium 139.3 ABG Potassium 4.2 ABG Chloride 96.0 L ABG Glucose 147 H Carboxyhemoglobin 1.6 H FiO2 % 100.0 Sodium 139 Potassium 4.5 D Chloride 96.9 L Carbon Dioxide 35 H Anion Gap 12 BUN 65 H Creatinine 1.5 H Estimated GFR 48 BUN/Creatinine Ratio 43 Glucose 142 H POC Glucose 138 H Calcium 8.9 Total Bilirubin 1.50 H AST 251 H ALT 572 H Alkaline Phosphatase 101 Total Protein 10.1 H Albumin 3.2 L Albumin/Globulin Ratio 0.5 Arterial Blood Glucose 147 H Arterial Blood Ionized Calcium 4.6 04/16/21 11:29 WBC RBC Hgb Hct MCV MCH MCHC RDW Plt Count ABG pH POC ABG pCO2 POC ABG pO2 POC ABG HCO3 ABG O2 Saturation POC ABG Base Excess ABG Hemoglobin ABG Oxyhemoglobin ABG Methemoglobin ABG Sodium ABG Potassium ABG Chloride ABG Glucose Carboxyhemoglobin FiO2 % Sodium Potassium Chloride Carbon Dioxide Anion Gap BUN Creatinine Estimated GFR BUN/Creatinine Ratio Glucose POC Glucose 131 H Calcium Total Bilirubin AST ALT Alkaline Phosphatase Total Protein Albumin Albumin/Globulin Ratio Arterial Blood Glucose Arterial Blood Ionized Calcium
--- NOTE | 2021-04-16 14:32 | Progress Note ---
Assessment and Plan Acute hypoxemic and hypercapnic respiratory failure Acute exacerbation of CHF (congestive heart failure) Hypertension Morbid obesity with BMI of 70 and over, adult Obesity hypoventilation syndrome Sleep apnea - continue NIV RTC while attempting to transition to qhs only - continue diuresis while following electrolytes - continue to wean supplemental oxygen for target O2 sat's > 90% acutely - aspiration precautions - continue bronchodilators with pulmonary hygiene per RT - continue accuchecks with glycemic control per SSI (While critically ill target blood glucose of 140-180 mg/dL; avoid hypoglycemia) - avoid nephrotoxins, renally dose all medications - AB's per ID rec's - prn analgesia per pain score - Maintenance of sleep-wake cycle, avoid delirium - G.I. & VTE prophylaxis - PT/OT/ROM exercises - continue mobility protocols for pressure ulcer prophylaxis - Monitor hemodynamics closely - continue other care per attending / other consultants - discharge planning ongoing concurrently COVID SPECIFIC INTERVENTIONS - COVID-19 assay negative .... Re-evaluate in am & prn CONDITION: CRITICAL PROGNOSIS: GUARDED CODE STATUS: FULL CODE The high probability of a clinically significant, sudden or life-threatening deterioration of the [respiratory, cardiovascular, renal & neurologic] system(s) required my full and direct attention, intervention and personal management. The aggregate critical care time was [34] minutes without overlap. Time includes spent on; [x] Data Review and interpretation [x] Patient assessment and monitoring of vital signs [x] Documentation [x] Medication orders and management Subjective Date of service: 04/16/21 Principal diagnosis: Ac hypoxemic and hypercapnic resp failure; AE-CHF; Morbid obesity; CLAUDIA/OHS Interval history: Patient is seen today for: Acute hypoxemic and hypercapnic respiratory failure; Acute exacerbation of CHF; Hypertension; Morbid obesity; CLAUDIA / OHS Seen and examined at bedside; 24hour events reviewed; nursing and respiratory care staff consulted; no adverse overnight events reported to me; resting in bed; remains BIPAP dependent with quick desaturations during breaks; also with recurrent worsening of hypercapnia off BIPAP; denies acute chest pain; No N/V/F/C Objective Vital Signs - 12hr 04/16/21 04/16/21 04/16/21 02:30 03:00 03:30 Temperature Pulse Rate 100 H 104 H 105 H Pulse Rate [ From Monitor] Respiratory 27 H 18 18 Rate Blood Pressure 143/98 135/93 137/95 O2 Sat by Pulse 94 95 94 Oximetry 04/16/21 04/16/21 04/16/21 04:00 04:30 05:00 Temperature 97.8 F Pulse Rate 106 H 107 H 106 H Pulse Rate [ 98 H From Monitor] Respiratory 21 19 24 Rate Blood Pressure 132/99 147/101 142/101 O2 Sat by Pulse 94 93 91 Oximetry 04/16/21 04/16/21 04/16/21 05:30 06:00 06:30 Temperature Pulse Rate 107 H 108 H 108 H Pulse Rate [ From Monitor] Respiratory 23 23 27 H Rate Blood Pressure 126/86 139/92 125/77 O2 Sat by Pulse 85 83 L 82 L Oximetry 04/16/21 04/16/21 04/16/21 07:00 07:23 07:30 Temperature 97.9 F Pulse Rate 128 H 105 H Pulse Rate [ From Monitor] Respiratory 24 18 Rate Blood Pressure 181/128 139/98 O2 Sat by Pulse 91 100 Oximetry 04/16/21 04/16/21 04/16/21 08:00 08:15 08:30 Temperature Pulse Rate 105 H 105 H 105 H Pulse Rate [ From Monitor] Respiratory 24 24 21 Rate Blood Pressure 139/98 139/98 139/98 O2 Sat by Pulse 88 94 87 Oximetry 04/16/21 04/16/21 04/16/21 09:00 09:30 10:00 Temperature Pulse Rate 104 H 103 H 102 H Pulse Rate [ From Monitor] Respiratory 22 20 20 Rate Blood Pressure 139/98 139/98 139/98 O2 Sat by Pulse 90 91 93 Oximetry 04/16/21 04/16/21 04/16/21 10:30 11:00 11:30 Temperature Pulse Rate 103 H 103 H 102 H Pulse Rate [ From Monitor] Respiratory 19 24 16 Rate Blood Pressure 117/67 116/72 132/91 O2 Sat by Pulse 94 94 95 Oximetry 04/16/21 12:09 Temperature 98.5 F Pulse Rate Pulse Rate [ From Monitor] Respiratory Rate Blood Pressure O2 Sat by Pulse Oximetry Constitutional: asleep, appears uncomfortable, other (young extremely obese female with mildly increased respiratory effort at rest on NIV) Eyes: non-icteric ENT: oropharynx moist, other (BIPAP FFM) Neck: supple, no lymphadenopathy, no JVD Effort: mildly labored Ascultation: Bilateral: diminished breath sounds, rhonchi Percussion: Bilateral: not dull Cardiovascular: regular rate and rhythm Gastrointestinal: normoactive bowel sounds, soft, non-tender, non-distended (protuberant) Integumentary: rash (stasis dermatitis type), other (Stasis dermatititis on legs and abdomen; see N notes for full details) Extremities: pulses normal, no ischemia or petechiae, edema (2+), other (stasis dermatitis) Neurologic: non-focal exam (grossly), pupils equal and round, CN II-XII normal Psychiatric: depressed CBC and BMP: 04/17/21 08:55 04/17/21 08:55 ABG, PT/INR, D-dimer: ABG ABG pH 7.086 (7.320-7.450) L 04/16/21 07:32 POC ABG pCO2 142.2 mmHg (32.0-48.0) H 04/16/21 07:32 ABG pCO2 86.9 mm Hg 04/13/21 18:40 POC ABG pO2 196.3 mmHg (83-108) H 04/16/21 07:32 ABG pO2 81.8 mm Hg (80.0-90.0) 04/13/21 18:40 POC ABG HCO3 41.8 04/16/21 07:32 ABG O2 Saturation 99.6 (0-100) 04/16/21 07:32 Abnormal lab findings: Abnormal Labs 04/07/21 04/07/21 04/08/21 22:04 22:04 00:18 WBC 17.7 H Hgb 9.1 L Hct MCV 77 L MCH 21 L MCHC 27 L RDW 24.3 H Seg Neuts % (Manual) Lymphocytes % (Manual) Nucleated RBC % Seg Neutrophils # Man Lymphocytes # (Manual) Monocytes # (Manual) ABG pH POC ABG pCO2 POC ABG pO2 ABG pO2 ABG HCO3 ABG Base Excess ABG Hemoglobin ABG Oxyhemoglobin ABG Sodium ABG Chloride ABG Glucose Oxyhemoglobin Carboxyhemoglobin Sodium 135 L Potassium Chloride 91.0 L Carbon Dioxide 17 L BUN Creatinine 1.4 H Glucose 55 L POC Glucose 49 L Calcium Ionized Calcium Total Bilirubin AST ALT Total Creatine Kinase Troponin T 0.043 H NT-Pro-B Natriuret Pep 7573 H Total Protein Albumin LDL Cholesterol Direct 47 L HDL Cholesterol 25 L Arterial Blood Glucose 04/08/21 04/08/21 04/08/21 04:03 04:03 09:22 WBC 24.3 H Hgb 9.3 L Hct MCV 74 L MCH 21 L MCHC 29 L RDW 23.1 H Seg Neuts % (Manual) 78.0 H Lymphocytes % (Manual) 7.0 L Nucleated RBC % 1.0 H Seg Neutrophils # Man 19.0 H Lymphocytes # (Manual) Monocytes # (Manual) 1.0 H ABG pH POC ABG pCO2 POC ABG pO2 ABG pO2 ABG HCO3 ABG Base Excess ABG Hemoglobin ABG Oxyhemoglobin ABG Sodium ABG Chloride ABG Glucose Oxyhemoglobin Carboxyhemoglobin Sodium 134 L Potassium Chloride 91.2 L Carbon Dioxide BUN Creatinine 1.8 H Glucose POC Glucose Calcium Ionized Calcium Total Bilirubin AST ALT Total Creatine Kinase Troponin T 0.099 H NT-Pro-B Natriuret Pep Total Protein Albumin LDL Cholesterol Direct HDL Cholesterol Arterial Blood Glucose 04/08/21 04/08/21 04/09/21 13:03 20:28 04:52 WBC 20.9 H Hgb 8.5 L Hct 30.0 L MCV 73 L MCH 21 L MCHC 28 L RDW 23.9 H Seg Neuts % (Manual) 77.0 H Lymphocytes % (Manual) 1.0 L Nucleated RBC % 1.0 H Seg Neutrophils # Man 16.1 H Lymphocytes # (Manual) 0.2 L Monocytes # (Manual) ABG pH POC ABG pCO2 POC ABG pO2 ABG pO2 ABG HCO3 ABG Base Excess ABG Hemoglobin ABG Oxyhemoglobin ABG Sodium ABG Chloride ABG Glucose Oxyhemoglobin Carboxyhemoglobin Sodium Potassium Chloride Carbon Dioxide BUN Creatinine Glucose POC Glucose 115 H Calcium Ionized Calcium Total Bilirubin AST ALT Total Creatine Kinase Troponin T 0.078 H D NT-Pro-B Natriuret Pep Total Protein Albumin LDL Cholesterol Direct HDL Cholesterol Arterial Blood Glucose 04/09/21 04/09/21 04/09/21 04:52 08:46 11:50 WBC Hgb Hct MCV MCH MCHC RDW Seg Neuts % (Manual) Lymphocytes % (Manual) Nucleated RBC % Seg Neutrophils # Man Lymphocytes # (Manual) Monocytes # (Manual) ABG pH POC ABG pCO2 POC ABG pO2 ABG pO2 ABG HCO3 ABG Base Excess ABG Hemoglobin ABG Oxyhemoglobin ABG Sodium ABG Chloride ABG Glucose Oxyhemoglobin Carboxyhemoglobin Sodium 129 L Potassium 5.6 H Chloride 88.6 L Carbon Dioxide BUN 27 H Creatinine 2.4 H Glucose 121 H POC Glucose 139 H 156 H Calcium 7.7 L Ionized Calcium Total Bilirubin AST ALT Total Creatine Kinase Troponin T NT-Pro-B Natriuret Pep Total Protein Albumin LDL Cholesterol Direct HDL Cholesterol Arterial Blood Glucose 04/09/21 04/09/21 04/09/21 15:46 16:58 22:08 WBC Hgb Hct MCV MCH MCHC RDW Seg Neuts % (Manual) Lymphocytes % (Manual) Nucleated RBC % Seg Neutrophils # Man Lymphocytes # (Manual) Monocytes # (Manual) ABG pH POC ABG pCO2 POC ABG pO2 ABG pO2 ABG HCO3 ABG Base Excess ABG Hemoglobin ABG Oxyhemoglobin ABG Sodium ABG Chloride ABG Glucose Oxyhemoglobin Carboxyhemoglobin Sodium 128 L Potassium 5.5 H Chloride 88.1 L Carbon Dioxide BUN 33 H Creatinine 2.7 H Glucose 172 H POC Glucose 187 H 186 H Calcium 7.3 L Ionized Calcium Total Bilirubin AST ALT Total Creatine Kinase Troponin T NT-Pro-B Natriuret Pep Total Protein Albumin LDL Cholesterol Direct HDL Cholesterol Arterial Blood Glucose 04/09/21 04/10/21 04/10/21 23:15 02:20 07:39 WBC Hgb Hct MCV MCH MCHC RDW Seg Neuts % (Manual) Lymphocytes % (Manual) Nucleated RBC % Seg Neutrophils # Man Lymphocytes # (Manual) Monocytes # (Manual) ABG pH POC ABG pCO2 POC ABG pO2 ABG pO2 ABG HCO3 ABG Base Excess ABG Hemoglobin ABG Oxyhemoglobin ABG Sodium ABG Chloride ABG Glucose Oxyhemoglobin Carboxyhemoglobin Sodium 128 L Potassium 5.2 H Chloride 88.6 L Carbon Dioxide BUN 39 H Creatinine 3.1 H Glucose 171 H POC Glucose 168 H Calcium 7.2 L Ionized Calcium 3.6 L Total Bilirubin AST ALT Total Creatine Kinase Troponin T NT-Pro-B Natriuret Pep Total Protein Albumin LDL Cholesterol Direct HDL Cholesterol Arterial Blood Glucose 04/10/21 04/10/21 04/10/21 10:04 11:37 17:18 WBC Hgb Hct MCV MCH MCHC RDW Seg Neuts % (Manual) Lymphocytes % (Manual) Nucleated RBC % Seg Neutrophils # Man Lymphocytes # (Manual) Monocytes # (Manual) ABG pH POC ABG pCO2 POC ABG pO2 ABG pO2 ABG HCO3 ABG Base Excess ABG Hemoglobin ABG Oxyhemoglobin ABG Sodium ABG Chloride ABG Glucose Oxyhemoglobin Carboxyhemoglobin Sodium Potassium Chloride Carbon Dioxide BUN Creatinine Glucose POC Glucose 170 H 152 H Calcium Ionized Calcium Total Bilirubin AST ALT Total Creatine Kinase 1712 H Troponin T NT-Pro-B Natriuret Pep Total Protein Albumin LDL Cholesterol Direct HDL Cholesterol Arterial Blood Glucose 04/10/21 04/10/21 04/11/21 19:38 22:02 05:48 WBC Hgb Hct MCV MCH MCHC RDW Seg Neuts % (Manual) Lymphocytes % (Manual) Nucleated RBC % Seg Neutrophils # Man Lymphocytes # (Manual) Monocytes # (Manual) ABG pH POC ABG pCO2 POC ABG pO2 ABG pO2 ABG HCO3 ABG Base Excess ABG Hemoglobin ABG Oxyhemoglobin ABG Sodium ABG Chloride ABG Glucose Oxyhemoglobin Carboxyhemoglobin Sodium 128 L 124 L Potassium 5.8 H D Chloride 89.6 L 89.4 L Carbon Dioxide BUN 47 H 53 H Creatinine 3.0 H 2.8 H Glucose 165 H 150 H POC Glucose 147 H Calcium 6.9 L 7.2 L Ionized Calcium Total Bilirubin AST ALT Total Creatine Kinase Troponin T NT-Pro-B Natriuret Pep Total Protein Albumin LDL Cholesterol Direct HDL Cholesterol Arterial Blood Glucose 04/11/21 04/11/21 04/11/21 08:48 11:35 19:12 WBC Hgb Hct MCV MCH MCHC RDW Seg Neuts % (Manual) Lymphocytes % (Manual) Nucleated RBC % Seg Neutrophils # Man Lymphocytes # (Manual) Monocytes # (Manual) ABG pH POC ABG pCO2 POC ABG pO2 ABG pO2 ABG HCO3 ABG Base Excess ABG Hemoglobin ABG Oxyhemoglobin ABG Sodium ABG Chloride ABG Glucose Oxyhemoglobin Carboxyhemoglobin Sodium 128 L Potassium Chloride 89.7 L Carbon Dioxide BUN 53 H Creatinine 2.4 H Glucose 159 H POC Glucose 152 H 152 H Calcium 7.1 L Ionized Calcium Total Bilirubin AST ALT Total Creatine Kinase Troponin T NT-Pro-B Natriuret Pep Total Protein Albumin LDL Cholesterol Direct HDL Cholesterol Arterial Blood Glucose 04/11/21 04/12/21 04/12/21 22:03 05:03 07:41 WBC Hgb Hct MCV MCH MCHC RDW Seg Neuts % (Manual) Lymphocytes % (Manual) Nucleated RBC % Seg Neutrophils # Man Lymphocytes # (Manual) Monocytes # (Manual) ABG pH POC ABG pCO2 POC ABG pO2 ABG pO2 ABG HCO3 ABG Base Excess ABG Hemoglobin ABG Oxyhemoglobin ABG Sodium ABG Chloride ABG Glucose Oxyhemoglobin Carboxyhemoglobin Sodium 134 L Potassium Chloride 92.9 L Carbon Dioxide 33 H D BUN 54 H Creatinine 2.4 H Glucose 150 H POC Glucose 152 H 144 H Calcium 7.2 L Ionized Calcium Total Bilirubin AST ALT Total Creatine Kinase Troponin T NT-Pro-B Natriuret Pep Total Protein Albumin LDL Cholesterol Direct HDL Cholesterol Arterial Blood Glucose 04/12/21 04/12/21 04/12/21 11:38 14:11 17:02 WBC 14.7 H Hgb 8.7 L Hct 29.8 L MCV 74 L MCH 22 L MCHC 29 L RDW 24.9 H Seg Neuts % (Manual) 86.0 H Lymphocytes % (Manual) 6.0 L Nucleated RBC % Seg Neutrophils # Man 12.6 H Lymphocytes # (Manual) 0.9 L Monocytes # (Manual) ABG pH POC ABG pCO2 POC ABG pO2 ABG pO2 ABG HCO3 ABG Base Excess ABG Hemoglobin ABG Oxyhemoglobin ABG Sodium ABG Chloride ABG Glucose Oxyhemoglobin Carboxyhemoglobin Sodium Potassium Chloride Carbon Dioxide BUN Creatinine Glucose POC Glucose 151 H 154 H Calcium Ionized Calcium Total Bilirubin AST ALT Total Creatine Kinase Troponin T NT-Pro-B Natriuret Pep Total Protein Albumin LDL Cholesterol Direct HDL Cholesterol Arterial Blood Glucose 04/12/21 04/13/21 04/13/21 23:14 05:03 10:00 WBC Hgb Hct MCV MCH MCHC RDW Seg Neuts % (Manual) Lymphocytes % (Manual) Nucleated RBC % Seg Neutrophils # Man Lymphocytes # (Manual) Monocytes # (Manual) ABG pH 7.150 L* POC ABG pCO2 POC ABG pO2 ABG pO2 91.8 H ABG HCO3 37.2 H ABG Base Excess 7.1 H ABG Hemoglobin 7.1 L ABG Oxyhemoglobin ABG Sodium ABG Chloride ABG Glucose Oxyhemoglobin 93.4 L Carboxyhemoglobin Sodium 134 L Potassium Chloride 91.3 L Carbon Dioxide 33 H BUN 63 H Creatinine 2.2 H Glucose 159 H POC Glucose 151 H Calcium 7.8 L Ionized Calcium Total Bilirubin AST ALT Total Creatine Kinase Troponin T NT-Pro-B Natriuret Pep Total Protein Albumin LDL Cholesterol Direct HDL Cholesterol Arterial Blood Glucose 04/13/21 04/13/21 04/13/21 12:39 16:37 18:40 WBC Hgb Hct MCV MCH MCHC RDW Seg Neuts % (Manual) Lymphocytes % (Manual) Nucleated RBC % Seg Neutrophils # Man Lymphocytes # (Manual) Monocytes # (Manual) ABG pH 7.237 L POC ABG pCO2 POC ABG pO2 ABG pO2 ABG HCO3 36.2 H ABG Base Excess 7.4 H ABG Hemoglobin 7.8 L ABG Oxyhemoglobin ABG Sodium ABG Chloride ABG Glucose Oxyhemoglobin 93.7 L Carboxyhemoglobin Sodium Potassium Chloride Carbon Dioxide BUN Creatinine Glucose POC Glucose 140 H 132 H Calcium Ionized Calcium Total Bilirubin AST ALT Total Creatine Kinase Troponin T NT-Pro-B Natriuret Pep Total Protein Albumin LDL Cholesterol Direct HDL Cholesterol Arterial Blood Glucose 04/13/21 04/14/21 04/14/21 23:55 04:27 04:27 WBC Hgb 8.5 L Hct 29.1 L MCV 72 L MCH 21 L MCHC 29 L RDW 24.9 H Seg Neuts % (Manual) Lymphocytes % (Manual) Nucleated RBC % Seg Neutrophils # Man Lymphocytes # (Manual) Monocytes # (Manual) ABG pH POC ABG pCO2 POC ABG pO2 ABG pO2 ABG HCO3 ABG Base Excess ABG Hemoglobin ABG Oxyhemoglobin ABG Sodium ABG Chloride ABG Glucose Oxyhemoglobin Carboxyhemoglobin Sodium 135 L Potassium Chloride 93.5 L Carbon Dioxide 33 H BUN 68 H Creatinine 1.9 H Glucose 143 H POC Glucose 135 H Calcium 8.1 L Ionized Calcium Total Bilirubin 1.50 H AST 494 H ALT 835 H Total Creatine Kinase Troponin T NT-Pro-B Natriuret Pep Total Protein 9.5 H Albumin 3.1 L LDL Cholesterol Direct HDL Cholesterol Arterial Blood Glucose 04/14/21 04/14/21 04/15/21 12:03 17:24 00:19 WBC Hgb Hct MCV MCH MCHC RDW Seg Neuts % (Manual) Lymphocytes % (Manual) Nucleated RBC % Seg Neutrophils # Man Lymphocytes # (Manual) Monocytes # (Manual) ABG pH 7.291 L POC ABG pCO2 75.5 H POC ABG pO2 76.2 L ABG pO2 ABG HCO3 ABG Base Excess ABG Hemoglobin 9.9 L ABG Oxyhemoglobin 91.0 L ABG Sodium 134.9 L ABG Chloride 93.0 L ABG Glucose 146 H Oxyhemoglobin Carboxyhemoglobin 2.2 H Sodium Potassium Chloride Carbon Dioxide BUN Creatinine Glucose POC Glucose 134 H 136 H Calcium Ionized Calcium Total Bilirubin AST ALT Total Creatine Kinase Troponin T NT-Pro-B Natriuret Pep Total Protein Albumin LDL Cholesterol Direct HDL Cholesterol Arterial Blood Glucose 146 H 04/15/21 04/15/21 04/15/21 04:55 04:55 05:29 WBC Hgb 8.0 L Hct 27.1 L MCV 70 L MCH 21 L MCHC RDW 24.3 H Seg Neuts % (Manual) Lymphocytes % (Manual) Nucleated RBC % Seg Neutrophils # Man Lymphocytes # (Manual) Monocytes # (Manual) ABG pH POC ABG pCO2 POC ABG pO2 ABG pO2 ABG HCO3 ABG Base Excess ABG Hemoglobin ABG Oxyhemoglobin ABG Sodium ABG Chloride ABG Glucose Oxyhemoglobin Carboxyhemoglobin Sodium Potassium Chloride 95.1 L Carbon Dioxide 36 H BUN 63 H Creatinine 1.5 H Glucose 131 H POC Glucose 118 H Calcium 8.3 L Ionized Calcium Total Bilirubin 1.80 H AST 323 H ALT 609 H Total Creatine Kinase Troponin T NT-Pro-B Natriuret Pep Total Protein 9.3 H Albumin 2.9 L LDL Cholesterol Direct HDL Cholesterol Arterial Blood Glucose 04/15/21 04/15/21 04/15/21 11:40 18:30 22:44 WBC Hgb Hct MCV MCH MCHC RDW Seg Neuts % (Manual) Lymphocytes % (Manual) Nucleated RBC % Seg Neutrophils # Man Lymphocytes # (Manual) Monocytes # (Manual) ABG pH POC ABG pCO2 POC ABG pO2 ABG pO2 ABG HCO3 ABG Base Excess ABG Hemoglobin ABG Oxyhemoglobin ABG Sodium ABG Chloride ABG Glucose Oxyhemoglobin Carboxyhemoglobin Sodium Potassium Chloride Carbon Dioxide BUN Creatinine Glucose POC Glucose 139 H 130 H 123 H Calcium Ionized Calcium Total Bilirubin AST ALT Total Creatine Kinase Troponin T NT-Pro-B Natriuret Pep Total Protein Albumin LDL Cholesterol Direct HDL Cholesterol Arterial Blood Glucose 04/16/21 04/16/21 04/16/21 04:53 04:53 07:16 WBC 12.5 H Hgb 8.8 L Hct 30.2 L MCV 74 L MCH 21 L MCHC 29 L RDW 24.5 H Seg Neuts % (Manual) Lymphocytes % (Manual) Nucleated RBC % Seg Neutrophils # Man Lymphocytes # (Manual) Monocytes # (Manual) ABG pH POC ABG pCO2 POC ABG pO2 ABG pO2 ABG HCO3 ABG Base Excess ABG Hemoglobin ABG Oxyhemoglobin ABG Sodium ABG Chloride ABG Glucose Oxyhemoglobin Carboxyhemoglobin Sodium Potassium Chloride 96.9 L Carbon Dioxide 35 H BUN 65 H Creatinine 1.5 H Glucose 142 H POC Glucose 138 H Calcium Ionized Calcium Total Bilirubin 1.50 H AST 251 H ALT 572 H Total Creatine Kinase Troponin T NT-Pro-B Natriuret Pep Total Protein 10.1 H Albumin 3.2 L LDL Cholesterol Direct HDL Cholesterol Arterial Blood Glucose 04/16/21 04/16/21 07:32 11:29 WBC Hgb Hct MCV MCH MCHC RDW Seg Neuts % (Manual) Lymphocytes % (Manual) Nucleated RBC % Seg Neutrophils # Man Lymphocytes # (Manual) Monocytes # (Manual) ABG pH 7.086 L POC ABG pCO2 142.2 H POC ABG pO2 196.3 H ABG pO2 ABG HCO3 ABG Base Excess ABG Hemoglobin 10.0 L ABG Oxyhemoglobin ABG Sodium ABG Chloride 96.0 L ABG Glucose 147 H Oxyhemoglobin Carboxyhemoglobin 1.6 H Sodium Potassium Chloride Carbon Dioxide BUN Creatinine Glucose POC Glucose 131 H Calcium Ionized Calcium Total Bilirubin AST ALT Total Creatine Kinase Troponin T NT-Pro-B Natriuret Pep Total Protein Albumin LDL Cholesterol Direct HDL Cholesterol Arterial Blood Glucose 147 H Chest x-ray: other (none today) Allied health notes reviewed: nursing
[2021-04-16] MEDS: FUROSEMIDE 40 MG/4 ML INJ IV SCH (21:35)
[2021-04-16] MEDS: oxyCODONE /ACETAMINOPHEN 5-325MG TAB PO PRN (21:39)
[2021-04-16] MEDS: guaiFENesin 100 MG/5 ML ORAL LIQD PO PRN (21:40)
[2021-04-16] MEDS: SODIUM CHLORIDE 1 GM TAB PO SCH (21:46)
[2021-04-17] MEDS: BENZONATATE 100 MG CAP PO SCH ×3 (06:42→21:19)
[2021-04-17] MEDS: FUROSEMIDE 40 MG/4 ML INJ IV SCH ×2 (06:42→17:15)
[2021-04-17] MEDS: guaiFENesin 100 MG/5 ML ORAL LIQD PO PRN (06:43)
[2021-04-17] MEDS: HEPARIN 5,000 UNIT/1 ML VIAL SUB-Q SCH ×3 (07:13→21:18)
[2021-04-17] MEDS: IPRATROPIUM/ALBUTEROL SULFATE 3 ML AMPUL.NEB IH SCH ×3 (08:40→20:09)
[2021-04-17 09:16] LABS: Mean Corpuscular HGB Conc 30 % (30-34); Mean Corpuscular Volume 74 fl (79-97); Platelet Count 227 K/mm3 (140-440); Red Blood Count 3.96 M/mm3 (3.65-5.03)
[2021-04-17 09:28] LABS: Hematocrit 29.4 % (30.3-42.9); Hemoglobin 8.7 gm/dl (10.1-14.3); Red Cell Distribution Width 24.8 % (13.2-15.2)
[2021-04-17] MEDS: methylPREDNISolone Sod Succinate 40 MG/1 ML INJ IV SCH ×2 (09:40→21:18)
[2021-04-17] MEDS: NYSTATIN POWDER 15 GM TP SCH ×2 (09:41→21:20)
[2021-04-17] MEDS: PANTOPRAZOLE 40 MG INJ IV SCH (09:41)
[2021-04-17] MEDS: ASPIRIN EC 325 MG TAB PO SCH (09:41)
[2021-04-17 09:44] LABS: Albumin 3.2 g/dL (3.9-5)
--- NOTE | 2021-04-17 12:27 | Progress Note ---
Assessment and Plan Acute hypoxemic and hypercapnic respiratory failure Acute exacerbation of CHF (congestive heart failure) Hypertension Morbid obesity with BMI of 70 and over, adult Obesity hypoventilation syndrome Sleep apnea - avoid opiates / sedating drugs - quick VTE w/up with dopplers and d-dimers - continue care as below otherwise; - continue NIV RTC while attempting to transition to qhs only - continue diuresis while following electrolytes - continue to wean supplemental oxygen for target O2 sat's > 90% acutely - aspiration precautions - continue bronchodilators with pulmonary hygiene per RT - continue accuchecks with glycemic control per SSI (While critically ill target blood glucose of 140-180 mg/dL; avoid hypoglycemia) - avoid nephrotoxins, renally dose all medications - AB's per ID rec's - prn analgesia per pain score - Maintenance of sleep-wake cycle, avoid delirium - G.I. & VTE prophylaxis - PT/OT/ROM exercises - continue mobility protocols for pressure ulcer prophylaxis - Monitor hemodynamics closely - continue other care per attending / other consultants - discharge planning ongoing concurrently COVID SPECIFIC INTERVENTIONS - COVID-19 assay negative .... Re-evaluate in am & prn CONDITION: CRITICAL PROGNOSIS: GUARDED CODE STATUS: FULL CODE The high probability of a clinically significant, sudden or life-threatening deterioration of the [respiratory, cardiovascular, renal & neurologic] system(s) required my full and direct attention, intervention and personal management. The aggregate critical care time was [33] minutes without overlap. Time includes spent on; [x] Data Review and interpretation [x] Patient assessment and monitoring of vital signs [x] Documentation [x] Medication orders and management Subjective Date of service: 04/17/21 Principal diagnosis: Ac hypoxemic and hypercapnic resp failure; AE-CHF; Morbid obesity; CLAUDIA/OHS Interval history: Patient is seen today for: Acute hypoxemic and hypercapnic respiratory failure; Acute exacerbation of CHF; Hypertension; Morbid obesity; CLAUDIA / OHS Seen and examined at bedside; 24hour events reviewed; nursing and respiratory care staff consulted; no adverse overnight events reported to me; resting in bed; remains BIPAP dependent Objective Vital Signs - 12hr 04/17/21 04/17/21 04/17/21 00:30 01:00 01:30 Temperature Pulse Rate 94 H 94 H 93 H Pulse Rate [ Anterior Bilateral Throughout] Pulse Rate [ From Monitor] Respiratory 19 21 20 Rate Respiratory Rate [Anterior Bilateral Throughout] Respiratory Rate [Left Abdomen] Blood Pressure 126/74 131/75 123/70 O2 Sat by Pulse 96 97 96 Oximetry 04/17/21 04/17/21 04/17/21 02:00 02:30 03:00 Temperature Pulse Rate 93 H 92 H 93 H Pulse Rate [ Anterior Bilateral Throughout] Pulse Rate [ From Monitor] Respiratory 23 15 24 Rate Respiratory Rate [Anterior Bilateral Throughout] Respiratory Rate [Left Abdomen] Blood Pressure 122/67 124/73 134/77 O2 Sat by Pulse 97 97 96 Oximetry 04/17/21 04/17/21 04/17/21 03:30 04:00 04:30 Temperature Pulse Rate 92 H 90 88 Pulse Rate [ Anterior Bilateral Throughout] Pulse Rate [ 92 H From Monitor] Respiratory 24 20 13 Rate Respiratory Rate [Anterior Bilateral Throughout] Respiratory Rate [Left Abdomen] Blood Pressure 127/73 127/70 125/68 O2 Sat by Pulse 100 98 Oximetry 04/17/21 04/17/21 04/17/21 05:00 05:30 05:53 Temperature 97.6 F Pulse Rate 90 92 H Pulse Rate [ Anterior Bilateral Throughout] Pulse Rate [ From Monitor] Respiratory 16 20 Rate Respiratory Rate [Anterior Bilateral Throughout] Respiratory Rate [Left Abdomen] Blood Pressure 145/94 171/121 O2 Sat by Pulse 100 Oximetry 04/17/21 04/17/21 04/17/21 06:00 06:30 06:50 Temperature Pulse Rate 94 H 91 H Pulse Rate [ Anterior Bilateral Throughout] Pulse Rate [ From Monitor] Respiratory 15 14 Rate Respiratory Rate [Anterior Bilateral Throughout] Respiratory 16 Rate [Left Abdomen] Blood Pressure 158/95 164/95 O2 Sat by Pulse 90 100 Oximetry 04/17/21 04/17/21 04/17/21 07:00 07:30 08:00 Temperature 97.8 F Pulse Rate 100 H 89 90 Pulse Rate [ Anterior Bilateral Throughout] Pulse Rate [ 87 From Monitor] Respiratory 24 21 19 Rate Respiratory Rate [Anterior Bilateral Throughout] Respiratory Rate [Left Abdomen] Blood Pressure 138/81 141/86 142/95 O2 Sat by Pulse 100 99 100 Oximetry 04/17/21 04/17/21 04/17/21 08:19 08:30 08:55 Temperature Pulse Rate 100 H Pulse Rate [ 87 Anterior Bilateral Throughout] Pulse Rate [ From Monitor] Respiratory 26 H 36 H Rate Respiratory 26 H Rate [Anterior Bilateral Throughout] Respiratory Rate [Left Abdomen] Blood Pressure 142/95 138/85 O2 Sat by Pulse 100 100 Oximetry 04/17/21 04/17/21 04/17/21 09:00 09:30 10:00 Temperature Pulse Rate 87 89 88 Pulse Rate [ Anterior Bilateral Throughout] Pulse Rate [ From Monitor] Respiratory 18 32 H 17 Rate Respiratory Rate [Anterior Bilateral Throughout] Respiratory Rate [Left Abdomen] Blood Pressure 138/85 130/82 125/78 O2 Sat by Pulse 100 98 98 Oximetry 04/17/21 04/17/21 10:30 11:00 Temperature Pulse Rate 88 88 Pulse Rate [ Anterior Bilateral Throughout] Pulse Rate [ From Monitor] Respiratory 24 20 Rate Respiratory Rate [Anterior Bilateral Throughout] Respiratory Rate [Left Abdomen] Blood Pressure 114/67 132/87 O2 Sat by Pulse 94 Oximetry Constitutional: asleep, appears uncomfortable, other (young extremely obese female with mildly increased respiratory effort at rest on NIV) Eyes: non-icteric ENT: oropharynx moist, other (BIPAP FFM) Neck: supple, no lymphadenopathy, no JVD Effort: mildly labored Ascultation: Bilateral: diminished breath sounds, rhonchi Percussion: Bilateral: not dull Cardiovascular: regular rate and rhythm Gastrointestinal: normoactive bowel sounds, soft, non-tender, non-distended (protuberant) Integumentary: rash (stasis dermatitis type), other (Stasis dermatititis on legs and abdomen; see [facility] notes for full details) Extremities: pulses normal, no ischemia or petechiae, edema (2+), other (stasis dermatitis) Neurologic: non-focal exam (grossly), pupils equal and round, CN II-XII normal Psychiatric: depressed CBC and BMP: 04/19/21 04:40 04/19/21 04:40 ABG, PT/INR, D-dimer: ABG ABG pH 7.234 (7.320-7.450) L 04/17/21 09:47 POC ABG pCO2 90.5 mmHg (32.0-48.0) H 04/17/21 09:47 ABG pCO2 86.9 mm Hg 04/13/21 18:40 POC ABG pO2 139.4 mmHg (83-108) H 04/17/21 09:47 ABG pO2 81.8 mm Hg (80.0-90.0) 04/13/21 18:40 POC ABG HCO3 37.4 04/17/21 09:47 ABG O2 Saturation 99.2 (0-100) 04/17/21 09:47 Abnormal lab findings: Abnormal Labs 04/07/21 04/07/21 04/08/21 22:04 22:04 00:18 WBC 17.7 H Hgb 9.1 L Hct MCV 77 L MCH 21 L MCHC 27 L RDW 24.3 H Seg Neuts % (Manual) Lymphocytes % (Manual) Nucleated RBC % Seg Neutrophils # Man Lymphocytes # (Manual) Monocytes # (Manual) ABG pH POC ABG pCO2 POC ABG pO2 ABG pO2 ABG HCO3 ABG Base Excess ABG Hemoglobin ABG Oxyhemoglobin ABG Sodium ABG Chloride ABG Glucose Oxyhemoglobin Carboxyhemoglobin Sodium 135 L Potassium Chloride 91.0 L Carbon Dioxide 17 L BUN Creatinine 1.4 H Glucose 55 L POC Glucose 49 L Calcium Ionized Calcium Total Bilirubin AST ALT Total Creatine Kinase Troponin T 0.043 H NT-Pro-B Natriuret Pep 7573 H Total Protein Albumin LDL Cholesterol Direct 47 L HDL Cholesterol 25 L Arterial Blood Glucose 04/08/21 04/08/21 04/08/21 04:03 04:03 09:22 WBC 24.3 H Hgb 9.3 L Hct MCV 74 L MCH 21 L MCHC 29 L RDW 23.1 H Seg Neuts % (Manual) 78.0 H Lymphocytes % (Manual) 7.0 L Nucleated RBC % 1.0 H Seg Neutrophils # Man 19.0 H Lymphocytes # (Manual) Monocytes # (Manual) 1.0 H ABG pH POC ABG pCO2 POC ABG pO2 ABG pO2 ABG HCO3 ABG Base Excess ABG Hemoglobin ABG Oxyhemoglobin ABG Sodium ABG Chloride ABG Glucose Oxyhemoglobin Carboxyhemoglobin Sodium 134 L Potassium Chloride 91.2 L Carbon Dioxide BUN Creatinine 1.8 H Glucose POC Glucose Calcium Ionized Calcium Total Bilirubin AST ALT Total Creatine Kinase Troponin T 0.099 H NT-Pro-B Natriuret Pep Total Protein Albumin LDL Cholesterol Direct HDL Cholesterol Arterial Blood Glucose 04/08/21 04/08/21 04/09/21 13:03 20:28 04:52 WBC 20.9 H Hgb 8.5 L Hct 30.0 L MCV 73 L MCH 21 L MCHC 28 L RDW 23.9 H Seg Neuts % (Manual) 77.0 H Lymphocytes % (Manual) 1.0 L Nucleated RBC % 1.0 H Seg Neutrophils # Man 16.1 H Lymphocytes # (Manual) 0.2 L Monocytes # (Manual) ABG pH POC ABG pCO2 POC ABG pO2 ABG pO2 ABG HCO3 ABG Base Excess ABG Hemoglobin ABG Oxyhemoglobin ABG Sodium ABG Chloride ABG Glucose Oxyhemoglobin Carboxyhemoglobin Sodium Potassium Chloride Carbon Dioxide BUN Creatinine Glucose POC Glucose 115 H Calcium Ionized Calcium Total Bilirubin AST ALT Total Creatine Kinase Troponin T 0.078 H D NT-Pro-B Natriuret Pep Total Protein Albumin LDL Cholesterol Direct HDL Cholesterol Arterial Blood Glucose 04/09/21 04/09/21 04/09/21 04:52 08:46 11:50 WBC Hgb Hct MCV MCH MCHC RDW Seg Neuts % (Manual) Lymphocytes % (Manual) Nucleated RBC % Seg Neutrophils # Man Lymphocytes # (Manual) Monocytes # (Manual) ABG pH POC ABG pCO2 POC ABG pO2 ABG pO2 ABG HCO3 ABG Base Excess ABG Hemoglobin ABG Oxyhemoglobin ABG Sodium ABG Chloride ABG Glucose Oxyhemoglobin Carboxyhemoglobin Sodium 129 L Potassium 5.6 H Chloride 88.6 L Carbon Dioxide BUN 27 H Creatinine 2.4 H Glucose 121 H POC Glucose 139 H 156 H Calcium 7.7 L Ionized Calcium Total Bilirubin AST ALT Total Creatine Kinase Troponin T NT-Pro-B Natriuret Pep Total Protein Albumin LDL Cholesterol Direct HDL Cholesterol Arterial Blood Glucose 04/09/21 04/09/21 04/09/21 15:46 16:58 22:08 WBC Hgb Hct MCV MCH MCHC RDW Seg Neuts % (Manual) Lymphocytes % (Manual) Nucleated RBC % Seg Neutrophils # Man Lymphocytes # (Manual) Monocytes # (Manual) ABG pH POC ABG pCO2 POC ABG pO2 ABG pO2 ABG HCO3 ABG Base Excess ABG Hemoglobin ABG Oxyhemoglobin ABG Sodium ABG Chloride ABG Glucose Oxyhemoglobin Carboxyhemoglobin Sodium 128 L Potassium 5.5 H Chloride 88.1 L Carbon Dioxide BUN 33 H Creatinine 2.7 H Glucose 172 H POC Glucose 187 H 186 H Calcium 7.3 L Ionized Calcium Total Bilirubin AST ALT Total Creatine Kinase Troponin T NT-Pro-B Natriuret Pep Total Protein Albumin LDL Cholesterol Direct HDL Cholesterol Arterial Blood Glucose 04/09/21 04/10/2104/10/21 23:15 02:20 07:39 WBC Hgb Hct MCV MCH MCHC RDW Seg Neuts % (Manual) Lymphocytes % (Manual) Nucleated RBC % Seg Neutrophils # Man Lymphocytes # (Manual) Monocytes # (Manual) ABG pH POC ABG pCO2 POC ABG pO2 ABG pO2 ABG HCO3 ABG Base Excess ABG Hemoglobin ABG Oxyhemoglobin ABG Sodium ABG Chloride ABG Glucose Oxyhemoglobin Carboxyhemoglobin Sodium 128 L Potassium 5.2 H Chloride 88.6 L Carbon Dioxide BUN 39 H Creatinine 3.1 H Glucose 171 H POC Glucose 168 H Calcium 7.2 L Ionized Calcium 3.6 L Total Bilirubin AST ALT Total Creatine Kinase Troponin T NT-Pro-B Natriuret Pep Total Protein Albumin LDL Cholesterol Direct HDL Cholesterol Arterial Blood Glucose 04/10/21 04/10/21 04/10/21 10:04 11:37 17:18 WBC Hgb Hct MCV MCH MCHC RDW Seg Neuts % (Manual) Lymphocytes % (Manual) Nucleated RBC % Seg Neutrophils # Man Lymphocytes # (Manual) Monocytes # (Manual) ABG pH POC ABG pCO2 POC ABG pO2 ABG pO2 ABG HCO3 ABG Base Excess ABG Hemoglobin ABG Oxyhemoglobin ABG Sodium ABG Chloride ABG Glucose Oxyhemoglobin Carboxyhemoglobin Sodium Potassium Chloride Carbon Dioxide BUN Creatinine Glucose POC Glucose 170 H 152 H Calcium Ionized Calcium Total Bilirubin AST ALT Total Creatine Kinase 1712 H Troponin T NT-Pro-B Natriuret Pep Total Protein Albumin LDL Cholesterol Direct HDL Cholesterol Arterial Blood Glucose 04/10/21 04/10/21 04/11/21 19:38 22:02 05:48 WBC Hgb Hct MCV MCH MCHC RDW Seg Neuts % (Manual) Lymphocytes % (Manual) Nucleated RBC % Seg Neutrophils # Man Lymphocytes # (Manual) Monocytes # (Manual) ABG pH POC ABG pCO2 POC ABG pO2 ABG pO2 ABG HCO3 ABG Base Excess ABG Hemoglobin ABG Oxyhemoglobin ABG Sodium ABG Chloride ABG Glucose Oxyhemoglobin Carboxyhemoglobin Sodium 128 L 124 L Potassium 5.8 H D Chloride 89.6 L 89.4 L Carbon Dioxide BUN 47 H 53 H Creatinine 3.0 H 2.8 H Glucose 165 H 150 H POC Glucose 147 H Calcium 6.9 L 7.2 L Ionized Calcium Total Bilirubin AST ALT Total Creatine Kinase Troponin T NT-Pro-B Natriuret Pep Total Protein Albumin LDL Cholesterol Direct HDL Cholesterol Arterial Blood Glucose 04/11/21 04/11/21 04/11/21 08:48 11:35 19:12 WBC Hgb Hct MCV MCH MCHC RDW Seg Neuts % (Manual) Lymphocytes % (Manual) Nucleated RBC % Seg Neutrophils # Man Lymphocytes # (Manual) Monocytes # (Manual) ABG pH POC ABG pCO2 POC ABG pO2 ABG pO2 ABG HCO3 ABG Base Excess ABG Hemoglobin ABG Oxyhemoglobin ABG Sodium ABG Chloride ABG Glucose Oxyhemoglobin Carboxyhemoglobin Sodium 128 L Potassium Chloride 89.7 L Carbon Dioxide BUN 53 H Creatinine 2.4 H Glucose 159 H POC Glucose 152 H 152 H Calcium 7.1 L Ionized Calcium Total Bilirubin AST ALT Total Creatine Kinase Troponin T NT-Pro-B Natriuret Pep Total Protein Albumin LDL Cholesterol Direct HDL Cholesterol Arterial Blood Glucose 04/11/21 04/12/21 04/12/21 22:03 05:03 07:41 WBC Hgb Hct MCV MCH MCHC RDW Seg Neuts % (Manual) Lymphocytes % (Manual) Nucleated RBC % Seg Neutrophils # Man Lymphocytes # (Manual) Monocytes # (Manual) ABG pH POC ABG pCO2 POC ABG pO2 ABG pO2 ABG HCO3 ABG Base Excess ABG Hemoglobin ABG Oxyhemoglobin ABG Sodium ABG Chloride ABG Glucose Oxyhemoglobin Carboxyhemoglobin Sodium 134 L Potassium Chloride 92.9 L Carbon Dioxide 33 H D BUN 54 H Creatinine 2.4 H Glucose 150 H POC Glucose 152 H 144 H Calcium 7.2 L Ionized Calcium Total Bilirubin AST ALT Total Creatine Kinase Troponin T NT-Pro-B Natriuret Pep Total Protein Albumin LDL Cholesterol Direct HDL Cholesterol Arterial Blood Glucose 04/12/21 04/12/21 04/12/21 11:38 14:11 17:02 WBC 14.7 H Hgb 8.7 L Hct 29.8 L MCV 74 L MCH 22 L MCHC 29 L RDW 24.9 H Seg Neuts % (Manual) 86.0 H Lymphocytes % (Manual) 6.0 L Nucleated RBC % Seg Neutrophils # Man 12.6 H Lymphocytes # (Manual) 0.9 L Monocytes # (Manual) ABG pH POC ABG pCO2 POC ABG pO2 ABG pO2 ABG HCO3 ABG Base Excess ABG Hemoglobin ABG Oxyhemoglobin ABG Sodium ABG Chloride ABG Glucose Oxyhemoglobin Carboxyhemoglobin Sodium Potassium Chloride Carbon Dioxide BUN Creatinine Glucose POC Glucose 151 H 154 H Calcium Ionized Calcium Total Bilirubin AST ALT Total Creatine Kinase Troponin T NT-Pro-B Natriuret Pep Total Protein Albumin LDL Cholesterol Direct HDL Cholesterol Arterial Blood Glucose 04/12/21 04/13/21 04/13/21 23:14 05:03 10:00 WBC Hgb Hct MCV MCH MCHC RDW Seg Neuts % (Manual) Lymphocytes % (Manual) Nucleated RBC % Seg Neutrophils # Man Lymphocytes # (Manual) Monocytes # (Manual) ABG pH 7.150 L* POC ABG pCO2 POC ABG pO2 ABG pO2 91.8 H ABG HCO3 37.2 H ABG Base Excess 7.1 H ABG Hemoglobin 7.1 L ABG Oxyhemoglobin ABG Sodium ABG Chloride ABG Glucose Oxyhemoglobin 93.4 L Carboxyhemoglobin Sodium 134 L Potassium Chloride 91.3 L Carbon Dioxide 33 H BUN 63 H Creatinine 2.2 H Glucose 159 H POC Glucose 151 H Calcium 7.8 L Ionized Calcium Total Bilirubin AST ALT Total Creatine Kinase Troponin T NT-Pro-B Natriuret Pep Total Protein Albumin LDL Cholesterol Direct HDL Cholesterol Arterial Blood Glucose 04/13/21 04/13/21 04/13/21 12:39 16:37 18:40 WBC Hgb Hct MCV MCH MCHC RDW Seg Neuts % (Manual) Lymphocytes % (Manual) Nucleated RBC % Seg Neutrophils # Man Lymphocytes # (Manual) Monocytes # (Manual) ABG pH 7.237 L POC ABG pCO2 POC ABG pO2 ABG pO2 ABG HCO3 36.2 H ABG Base Excess 7.4 H ABG Hemoglobin 7.8 L ABG Oxyhemoglobin ABG Sodium ABG Chloride ABG Glucose Oxyhemoglobin 93.7 L Carboxyhemoglobin Sodium Potassium Chloride Carbon Dioxide BUN Creatinine Glucose POC Glucose 140 H 132 H Calcium Ionized Calcium Total Bilirubin AST ALT Total Creatine Kinase Troponin T NT-Pro-B Natriuret Pep Total Protein Albumin LDL Cholesterol Direct HDL Cholesterol Arterial Blood Glucose 04/13/21 04/14/21 04/14/21 23:55 04:27 04:27 WBC Hgb 8.5 L Hct 29.1 L MCV 72 L MCH 21 L MCHC 29 L RDW 24.9 H Seg Neuts % (Manual) Lymphocytes % (Manual) Nucleated RBC % Seg Neutrophils # Man Lymphocytes # (Manual) Monocytes # (Manual) ABG pH POC ABG pCO2 POC ABG pO2 ABG pO2 ABG HCO3 ABG Base Excess ABG Hemoglobin ABG Oxyhemoglobin ABG Sodium ABG Chloride ABG Glucose Oxyhemoglobin Carboxyhemoglobin Sodium 135 L Potassium Chloride 93.5 L Carbon Dioxide 33 H BUN 68 H Creatinine 1.9 H Glucose 143 H POC Glucose 135 H Calcium 8.1 L Ionized Calcium Total Bilirubin 1.50 H AST 494 H ALT 835 H Total Creatine Kinase Troponin T NT-Pro-B Natriuret Pep Total Protein 9.5 H Albumin 3.1 L LDL Cholesterol Direct HDL Cholesterol Arterial Blood Glucose 04/14/21 04/14/21 04/15/21 12:03 17:24 00:19 WBC Hgb Hct MCV MCH MCHC RDW Seg Neuts % (Manual) Lymphocytes % (Manual) Nucleated RBC % Seg Neutrophils # Man Lymphocytes # (Manual) Monocytes # (Manual) ABG pH 7.291 L POC ABG pCO2 75.5 H POC ABG pO2 76.2 L ABG pO2 ABG HCO3 ABG Base Excess ABG Hemoglobin 9.9 L ABG Oxyhemoglobin 91.0 L ABG Sodium 134.9 L ABG Chloride 93.0 L ABG Glucose 146 H Oxyhemoglobin Carboxyhemoglobin 2.2 H Sodium Potassium Chloride Carbon Dioxide BUN Creatinine Glucose POC Glucose 134 H 136 H Calcium Ionized Calcium Total Bilirubin AST ALT Total Creatine Kinase Troponin T NT-Pro-B Natriuret Pep Total Protein Albumin LDL Cholesterol Direct HDL Cholesterol Arterial Blood Glucose 146 H 04/15/21 04/15/21 04/15/21 04:55 04:55 05:29 WBC Hgb 8.0 L Hct 27.1 L MCV 70 L MCH 21 L MCHC RDW 24.3 H Seg Neuts % (Manual) Lymphocytes % (Manual) Nucleated RBC % Seg Neutrophils # Man Lymphocytes # (Manual) Monocytes # (Manual) ABG pH POC ABG pCO2 POC ABG pO2 ABG pO2 ABG HCO3 ABG Base Excess ABG Hemoglobin ABG Oxyhemoglobin ABG Sodium ABG Chloride ABG Glucose Oxyhemoglobin Carboxyhemoglobin Sodium Potassium Chloride 95.1 L Carbon Dioxide 36 H BUN 63 H Creatinine 1.5 H Glucose 131 H POC Glucose 118 H Calcium 8.3 L Ionized Calcium Total Bilirubin 1.80 H AST 323 H ALT 609 H Total Creatine Kinase Troponin T NT-Pro-B Natriuret Pep Total Protein 9.3 H Albumin 2.9 L LDL Cholesterol Direct HDL Cholesterol Arterial Blood Glucose 04/15/21 04/15/21 04/15/21 11:40 18:30 22:44 WBC Hgb Hct MCV MCH MCHC RDW Seg Neuts % (Manual) Lymphocytes % (Manual) Nucleated RBC % Seg Neutrophils # Man Lymphocytes # (Manual) Monocytes # (Manual) ABG pH POC ABG pCO2 POC ABG pO2 ABG pO2 ABG HCO3 ABG Base Excess ABG Hemoglobin ABG Oxyhemoglobin ABG Sodium ABG Chloride ABG Glucose Oxyhemoglobin Carboxyhemoglobin Sodium Potassium Chloride Carbon Dioxide BUN Creatinine Glucose POC Glucose 139 H 130 H 123 H Calcium Ionized Calcium Total Bilirubin AST ALT Total Creatine Kinase Troponin T NT-Pro-B Natriuret Pep Total Protein Albumin LDL Cholesterol Direct HDL Cholesterol Arterial Blood Glucose 04/16/21 04/16/21 04/16/21 04:53 04:53 07:16 WBC 12.5 H Hgb 8.8 L Hct 30.2 L MCV 74 L MCH 21 L MCHC 29 L RDW 24.5 H Seg Neuts % (Manual) Lymphocytes % (Manual) Nucleated RBC % Seg Neutrophils # Man Lymphocytes # (Manual) Monocytes # (Manual) ABG pH POC ABG pCO2 POC ABG pO2 ABG pO2 ABG HCO3 ABG Base Excess ABG Hemoglobin ABG Oxyhemoglobin ABG Sodium ABG Chloride ABG Glucose Oxyhemoglobin Carboxyhemoglobin Sodium Potassium Chloride 96.9 L Carbon Dioxide 35 H BUN 65 H Creatinine 1.5 H Glucose 142 H POC Glucose 138 H Calcium Ionized Calcium Total Bilirubin 1.50 H AST 251 H ALT 572 H Total Creatine Kinase Troponin T NT-Pro-B Natriuret Pep Total Protein 10.1 H Albumin 3.2 L LDL Cholesterol Direct HDL Cholesterol Arterial Blood Glucose 04/16/21 04/16/21 04/16/21 07:32 11:29 14:42 WBC Hgb Hct MCV MCH MCHC RDW Seg Neuts % (Manual) Lymphocytes % (Manual) Nucleated RBC % Seg Neutrophils # Man Lymphocytes # (Manual) Monocytes # (Manual) ABG pH 7.086 L 7.188 L POC ABG pCO2 142.2 H 99.3 H POC ABG pO2 196.3 H 132.3 H ABG pO2 ABG HCO3 ABG Base Excess ABG Hemoglobin 10.0 L 9.2 L ABG Oxyhemoglobin ABG Sodium ABG Chloride 96.0 L 96.0 L ABG Glucose 147 H 146 H Oxyhemoglobin Carboxyhemoglobin 1.6 H 2.0 H Sodium Potassium Chloride Carbon Dioxide BUN Creatinine Glucose POC Glucose 131 H Calcium Ionized Calcium Total Bilirubin AST ALT Total Creatine Kinase Troponin T NT-Pro-B Natriuret Pep Total Protein Albumin LDL Cholesterol Direct HDL Cholesterol Arterial Blood Glucose 147 H 146 H 04/16/21 04/16/21 04/17/21 17:23 22:34 07:44 WBC Hgb Hct MCV MCH MCHC RDW Seg Neuts % (Manual) Lymphocytes % (Manual) Nucleated RBC % Seg Neutrophils # Man Lymphocytes # (Manual) Monocytes # (Manual) ABG pH POC ABG pCO2 POC ABG pO2 ABG pO2 ABG HCO3 ABG Base Excess ABG Hemoglobin ABG Oxyhemoglobin ABG Sodium ABG Chloride ABG Glucose Oxyhemoglobin Carboxyhemoglobin Sodium Potassium Chloride Carbon Dioxide BUN Creatinine Glucose POC Glucose 117 H 169 H 150 H Calcium Ionized Calcium Total Bilirubin AST ALT Total Creatine Kinase Troponin T NT-Pro-B Natriuret Pep Total Protein Albumin LDL Cholesterol Direct HDL Cholesterol Arterial Blood Glucose 04/17/21 04/17/21 04/17/21 08:55 08:55 09:47 WBC Hgb 8.7 L Hct 29.4 L MCV 74 L MCH 22 L MCHC RDW 24.8 H Seg Neuts % (Manual) Lymphocytes % (Manual) Nucleated RBC % Seg Neutrophils # Man Lymphocytes # (Manual) Monocytes # (Manual) ABG pH 7.234 L POC ABG pCO2 90.5 H POC ABG pO2 139.4 H ABG pO2 ABG HCO3 ABG Base Excess ABG Hemoglobin 9.5 L ABG Oxyhemoglobin ABG Sodium ABG Chloride 97.0 L ABG Glucose 179 H Oxyhemoglobin Carboxyhemoglobin 1.7 H Sodium Potassium Chloride 94.4 L Carbon Dioxide 37 H BUN 68 H Creatinine 1.5 H Glucose 178 H POC Glucose Calcium Ionized Calcium Total Bilirubin 1.60 H AST 172 H ALT 437 H Total Creatine Kinase Troponin T NT-Pro-B Natriuret Pep Total Protein 10.1 H Albumin 3.2 L LDL Cholesterol Direct HDL Cholesterol Arterial Blood Glucose 179 H 04/17/21 11:39 WBC Hgb Hct MCV MCH MCHC RDW Seg Neuts % (Manual) Lymphocytes % (Manual) Nucleated RBC % Seg Neutrophils # Man Lymphocytes # (Manual) Monocytes # (Manual) ABG pH POC ABG pCO2 POC ABG pO2 ABG pO2 ABG HCO3 ABG Base Excess ABG Hemoglobin ABG Oxyhemoglobin ABG Sodium ABG Chloride ABG Glucose Oxyhemoglobin Carboxyhemoglobin Sodium Potassium Chloride Carbon Dioxide BUN Creatinine Glucose POC Glucose 161 H Calcium Ionized Calcium Total Bilirubin AST ALT Total Creatine Kinase Troponin T NT-Pro-B Natriuret Pep Total Protein Albumin LDL Cholesterol Direct HDL Cholesterol Arterial Blood Glucose Allied health notes reviewed: nursing
--- NOTE | 2021-04-17 13:48 | Progress Note ---
Subjective Date of service: 04/17/21 Principal diagnosis: Ac hypoxemic and hypercapnic resp failure; AE-CHF; Morbid obesity; CLAUDIA/OHS Interval history: Assessment Acute kidney injury, unknown baseline. Renal ultrasound notes poor visualization due to body habitus. Hypervolemic Hyponatremia Hyperkalemia Hypocalcemia Morbid obesity Recommendations Continue diuresis stopped Na tabls cr is stable today echo noted, likely diastolic disease rec lasix 40mg po bid, iv if not responsive to diuresis Maintain MAP more than 65 Hold SUNG/ARB at this time Hold diuretics given soft pressures Renally dose medications Avoid nephrotoxins Renal diet will follow lytes prn Subjective: Principal diagnosis: Acute on chronic renal insufficiency Interval history: Patient was seen for her renal issues Nursing, interdisciplinary and consult notes were reviewed Vitals, input and output, medications and labs were reviewed Remains on NC Objective - Exam Narrative Exam: General: Morbid obesity HEENT: Oral mucosa moist Neck: Supple, no JVD Chest: Clear to auscultation bilaterally Heart: RRR, S1 and S2, no pericardial rub Abdomen: Soft, nontender, no renal bruit Extremity: No peripheral cyanosis, edema Neurological: Awake and alert Dermatology: Unable to assess Psych: Calm and cooperative Musculoskeletal: No joint effusion Objective - Vital Signs Vital signs: Vital Signs - 12hr 04/17/21 04/17/21 04/17/21 02:00 02:30 03:00 Temperature Pulse Rate 93 H 92 H 93 H Pulse Rate [ Anterior Bilateral Throughout] Pulse Rate [ From Monitor] Respiratory 23 15 24 Rate Respiratory Rate [Anterior Bilateral Throughout] Respiratory Rate [Left Abdomen] Blood Pressure 122/67 124/73 134/77 O2 Sat by Pulse 97 97 96 Oximetry 04/17/21 04/17/21 04/17/21 03:30 04:00 04:30 Temperature Pulse Rate 92 H 90 88 Pulse Rate [ Anterior Bilateral Throughout] Pulse Rate [ 92 H From Monitor] Respiratory 24 20 13 Rate Respiratory Rate [Anterior Bilateral Throughout] Respiratory Rate [Left Abdomen] Blood Pressure 127/73 127/70 125/68 O2 Sat by Pulse 100 98 Oximetry 04/17/21 04/17/21 04/17/21 05:00 05:30 05:53 Temperature 97.6 F Pulse Rate 90 92 H Pulse Rate [ Anterior Bilateral Throughout] Pulse Rate [ From Monitor] Respiratory 16 20 Rate Respiratory Rate [Anterior Bilateral Throughout] Respiratory Rate [Left Abdomen] Blood Pressure 145/94 171/121 O2 Sat by Pulse 100 Oximetry 04/17/21 04/17/21 04/17/21 06:00 06:30 06:50 Temperature Pulse Rate 94 H 91 H Pulse Rate [ Anterior Bilateral Throughout] Pulse Rate [ From Monitor] Respiratory 15 14 Rate Respiratory Rate [Anterior Bilateral Throughout] Respiratory 16 Rate [Left Abdomen] Blood Pressure 158/95 164/95 O2 Sat by Pulse 90 100 Oximetry 04/17/21 04/17/21 04/17/21 07:00 07:30 08:00 Temperature 97.8 F Pulse Rate 100 H 89 90 Pulse Rate [ Anterior Bilateral Throughout] Pulse Rate [ 87 From Monitor] Respiratory 24 21 19 Rate Respiratory Rate [Anterior Bilateral Throughout] Respiratory Rate [Left Abdomen] Blood Pressure 138/81 141/86 142/95 O2 Sat by Pulse 100 99 100 Oximetry 04/17/21 04/17/21 04/17/21 08:19 08:30 08:55 Temperature Pulse Rate 100 H Pulse Rate [ 87 Anterior Bilateral Throughout] Pulse Rate [ From Monitor] Respiratory 26 H 36 H Rate Respiratory 26 H Rate [Anterior Bilateral Throughout] Respiratory Rate [Left Abdomen] Blood Pressure 142/95 138/85 O2 Sat by Pulse 100 100 Oximetry 04/17/21 04/17/21 04/17/21 09:00 09:30 10:00 Temperature Pulse Rate 87 89 88 Pulse Rate [ Anterior Bilateral Throughout] Pulse Rate [ From Monitor] Respiratory 18 32 H 17 Rate Respiratory Rate [Anterior Bilateral Throughout] Respiratory Rate [Left Abdomen] Blood Pressure 138/85 130/82 125/78 O2 Sat by Pulse 100 98 98 Oximetry 04/17/21 04/17/21 04/17/21 10:30 11:00 12:56 Temperature Pulse Rate 88 88 100 H Pulse Rate [ Anterior Bilateral Throughout] Pulse Rate [ From Monitor] Respiratory 24 20 25 H Rate Respiratory Rate [Anterior Bilateral Throughout] Respiratory Rate [Left Abdomen] Blood Pressure 114/67 132/87 130/88 O2 Sat by Pulse 94 98 Oximetry - Lab 04/17/21 08:55 04/17/21 08:55 Most recent lab results ABG pH 7.234 (7.320-7.450) L 04/17/21 09:47 ABG pCO2 86.9 mm Hg 04/13/21 18:40 ABG pO2 81.8 mm Hg (80.0-90.0) 04/13/21 18:40 ABG HCO3 36.2 mmol/L (20.0-26.0) H 04/13/21 18:40 ABG O2 Saturation 99.2 (0-100) 04/17/21 09:47 Calcium 9.0 mg/dL (8.4-10.2) 04/17/21 08:55 Urine Sodium 16 mmol/L 04/09/21 18:46 Medications & Allergies - Medications Allergies/Adverse Reactions: Allergies No Known Allergies Allergy (Unverified 01/27/17 11:17) Home Medications: Home Medications Medication Instructions Recorded Confirmed Last Taken Type Acetaminophen [Acetaminophen TAB] 325 mg PO Q4H PRN #30 tablet 06/30/17 08/08/20 Unknown Rx ALBUTEROL NEB's [Proventil 0.083% 2.5 mg IH Q3HRT PRN #30 day 08/10/20 Unknown Rx NEBS] Albuterol Mdi (or & Nicu Only) 2 puff IH QID PRN #1 inhalation 08/10/20 Unknown Rx [ProAir HFA Inhaler] Azithromycin [Zithromax Z-BIN] 0 mg PO DAILY #1 tab 08/10/20 Unknown Rx Benzonatate [Tessalon Perles] 100 mg PO Q8HR #15 capsule 08/10/20 Unknown Rx Famotidine [Pepcid] 20 mg PO BID #14 tablet 08/10/20 Unknown Rx Ipratropium/Albuterol Sulfate 1 ampul IH TIDRT #30 day 08/10/20 Unknown Rx [DUONEB *Not for PRN Use*] hydroCHLOROthiazide [HCTZ] 25 mg PO QDAY tablet 08/10/20 Unknown Rx hydroCHLOROthiazide [HCTZ] 25 mg PO QDAY #30 tablet 08/10/20 Unknown Rx methylPREDNISolone [Medrol 4MG 4 mg PO DAILY #1 tab.ds.pk 08/10/20 Unknown Rx DOSEPAK (21 tabs)] Active Medications: Generic Name Dose Route Start Last Admin Trade Name Freq PRN Reason Stop Dose Admin Acetaminophen 650 mg 04/08/21 03:00 04/17/21 06:42 Acetaminophen 325 Mg Tab PO 650 mg Q4H PRN Administration Pain MILD(1-3)/Fever >100.5/BROWN Albuterol 2.5 mg 04/08/21 03:00 Albuterol 2.5 Mg/3 Ml Nebu IH Q4HRT PRN Shortness Of Breath Albuterol/Ipratropium 1 ampul 04/08/21 08:00 04/17/21 08:40 Ipratropium/Albuterol Sulfate 3 Ml Ampul.Neb IH 1 ampul TIDRT EKATERINA Administration Aspirin 325 mg 04/09/21 10:00 04/17/21 09:41 Aspirin Ec 325 Mg Tab PO 325 mg QDAY EKATERINA Administration Atorvastatin Calcium 40 mg 04/08/21 22:00 04/16/21 21:40 Atorvastatin 40 Mg Tab PO 40 mg QHS EKATERINA Administration Benzonatate 100 mg 04/08/21 06:00 04/17/21 13:09 Benzonatate 100 Mg Cap PO 100 mg Q8HR EKATERINA Administration Furosemide 40 mg 04/16/21 18:00 04/17/21 06:42 Furosemide 40 Mg/4 Ml Inj IV 40 mg 0600,1800 EKATERINA Administration Guaifenesin 200 mg 04/12/21 14:47 04/17/21 06:43 Guaifenesin 100 Mg/5 Ml Oral Liqd PO 200 mg Q4H PRN Administration Cough Heparin Sodium (Porcine) 5,000 unit 04/08/21 06:00 04/17/21 13:09 Heparin 5,000 Unit/1 Ml Vial SUB-Q 5,000 unit Q8HR EKATERINA Administration Methylprednisolone Sodium Succinate 20 mg 04/16/21 10:00 04/17/21 09:40 Methylprednisolone Sod Succinate 40 Mg/1 Ml Inj IV 20 mg Q12HR EKATERINA Administration Nitroglycerin 0.4 mg 04/08/21 03:00 Nitroglycerin 0.4 Mg Tab Subl SL Q5M PRN Chest Pain Nystatin 1 applic 04/08/21 18:00 04/17/21 09:41 Nystatin Powder 15 Gm TP 1 applic BID EKATERINA Administration Ondansetron HCl 4 mg 04/08/21 03:00 04/15/21 23:51 Ondansetron 4 Mg/2 Ml Inj IV 4 mg Q8H PRN Administration Nausea And Vomiting Oxycodone/Acetaminophen 1 tab 04/08/21 03:00 04/16/21 21:39 Oxycodone /Acetaminophen 5-325mg Tab PO 1 tab Q6H PRN Administration Pain, Moderate (4-6) Pantoprazole Sodium 40 mg 04/16/21 10:00 04/17/21 09:41 Pantoprazole 40 Mg Inj IV 40 mg QDAY EKATERINA Administration Sodium Chloride 10 ml 04/08/21 10:00 04/17/21 09:40 Sodium Chloride 0.9% 10 Ml Flush Syringe IV 10 ml BID EKATERINA Administration Sodium Chloride 10 ml 04/08/21 03:00 Sodium Chloride 0.9% 10 Ml Flush Syringe IV PRN PRN LINE FLUSH Tramadol HCl 50 mg 04/08/21 03:00 Tramadol 50 Mg Tab PO Q6H PRN Pain, Moderate (4-6)
--- NOTE | 2021-04-17 15:56 | Progress Note ---
Assessment and Plan Assessment and plan: (1) Non-ST elevation IL (NSTEMI) type II Procardia Current Visit: Yes Status: Acute Plan to address problem: Admit the patient to the medical telemetry. Aspirin 325 mg p.o. daily. Lipitor 40 mg p.o. daily. Nitroglycerin as needed. We do the serial cardiac enzyme. We also consult cardiology for evaluation and order echocardiogram. (2) Acute exacerbation of CHF (congestive heart failure) Current Visit: Yes Status: Acute Plan to address problem: Fluid restriction. Maintain input output. Lasix 40 mg IV every 12 hours. Oxygen via nasal cannula 3 L/min. DuoNeb by nebulizer every 4 hours. Echocardiogram. Cardiology consult (3) Hypertension Current Visit: Yes Status: Acute Plan to address problem: We will continue the home medication. Hydralazine 10 mg IV every 6 hours as needed. We will monitor the blood pressure closely (4) COPD (chronic obstructive pulmonary disease) Current Visit: Yes Status: Acute Plan to address problem: Oxygen by nasal cannula 3 L/min. DuoNeb via nebulizer every 4 hours. Albuterol via nebulizer every 4 hours as needed. Super (5) Morbid obesity Current Visit: Yes Status: Acute Plan to address problem: We counseled regarding weight reduction. Outpatient follow-up with bariatric surgeon (6) Hyperglycemia Current Visit: Yes Status: Acute Plan to address problem: We will give 1 ampoule of D50. We will put the patient on cardiac diet. We will monitor the blood glucose closely (7) acute kidney injury with vasomotor nephropathy (8) Lymphedema of the abdominal wall (9)Anemia of chronic disease (10)Possible passive congestive hepatic failure with underlying NAFLD (11) DVT prophylaxis Current Visit: No Status: Acute Plan to address problem: Heparin 5000 units subcu every 8 hours for DVT prophylaxis. Pepcid 20 mg p.o. twice daily for GI prophylaxis. Patient is a full code 04/09 -Patient is on heparin drip for non-STEMI, cardiology is following. -Patient is off Lasix and SNUG inhibitors because of GILBERTO. -Kidney function is worsening overnight and I put a consult for nephrology. -Patient is hypotensive and blood pressure from this morning was 101/41. We will continue to monitor. And if it is dropping we we will give him fluid. -Echo was done and EF of 50 to 55%. Diastolic dysfunction is indeterminate. Management per cardiology -Patient has COPD continues on dexamethasone, nebulizer treatment as needed. -Patient has hyponatremia and hyperkalemia. I give the patient Kayexalate. Monitor electrolytes. Will follow nephrology for additional recommendation. 04/10 -Renal function is worsening, nephrology is following -Blood pressure is better today -Hyperkalemia; I added Kayexalate -Morbid obesity 04/11 -Slight improvement in creatinine. Hyponatremia worsened. Nephrology is following and put the patient back on Lasix. -Blood PRESSURE IS BETTER today -Potassium this morning was 5.8, I ordered 60 g of Kayexalate -Morbidly obese -Obesity hypoventilation syndrome 04/12 -Creatinine is improving and this morning was 2.4 -Hyponatremia improved this morning was 134. Patient is on Lasix -Blood pressure is better -Patient is on 10 L of oxygen; worsened -Morbidly obese, CLAUDIA 04/13: Follow ordered ultrasound of abdomen, per Physician unable to get CT. I ordered an ABG due to my concern about her breathing pattern this morning, patient may benefit from. Will try to establish if patient has a primary pulmonary doctor. ABG is showing consistent with Respiratory Acidosis. Will place on BIPAP now. May need to transfer to IMCU for closer monitoring. Patient likely with Obesity Hypoventilation syndrome. cardiology work up, ongoing. RENAL SHOWING SOME IMPROVEMENT Guarded prognosis 04/14: Patient seen and examined today identified some lesion under the pannus will obtain wound care and wound surgeon evaluation. Nephrology input noted continue diuresis and stop the sodium tabs creatinine is stable. I did discuss with the family and updated them. We will continue to hold SUNG and ARB and if pressures continue to drop may need to hold diuresis also despite as written above. Monitor labs including H&H. She is more awake review of ABG shows improving CO2. Will discuss with case management as patient may need BiPAP on discharge home. I also updated the family 04/15: Patient showing some clinical improvement. Liver enzymes is showing mild improvement although bilirubin increased slightly. GI input noted and as discussed by his notes below "Abnormal liver enzymes in hepatocellular pattern. broad ddx and likely multifactorial causes including NAFLD, congestive hepatopathy, possibly DILI. will check viral hep serologies. US with limited views, possible coarsening of the liver" Patient also evaluated by surgery noted with the lymphedema of abdominal wall and open wound of the abdominal wall without penetration into the abdominal cavity with recommendation to pack the wounds daily with mesalt. Need to maintain dry environment discussed with nursing staff. Elevate the pannus and optimize nutrition for which I will get nutritional consult. No surgical intervention at this time. Patient is bedbound when I asked when last she ambulated she said while "I guess he has not worked" but it has been a while. Unfortunately the LTAC center unwilling to accept the patient will discuss with pulmonary and with case management about obtaining BiPAP for this patient and possible SNF referral. 04/16: Patient this morning and was noted significantly lethargic and unrespons mitch respiratory and a code to be called. The patient resuscitated without any invasive procedure. ABG was obtained showed a CO2 of 142. Despite using BiPAP for some time through the night, sure how long she used it for. I have discontinued all IV opioids and recommend no IV opioids for this patient at this time. I also discontinued p.o. medications as an essential medication and change to IV. We will repeat an ABG in an hour to see if there is some improvement. Patient remains at high risk for possible intubation. Clinical condition is guarded 04/17: Patient remains on BiPAP this am, has some intermittent twitching, will check EEG, not likely seizure, but will monitor. Continue current management , check Albumin and Pre-Albumin level. Remains critically ill. Liver status showing improvement. History Interval history: Patient seen and examined, remains on BiPAP, some intermittent twitching Hospitalist Physical - Physical exam Narrative exam: VITAL SIGNS: Reviewed. GENERAL: The patient is morbidly obese, lethargic on BiPAP Placed she is waking up some, Vital signs as documented. HEAD: No signs of head trauma. EYES: Pupils are equal. Extraocular motions intact. EARS: Hearing grossly intact. MOUTH: Oropharynx is normal. NECK: No adenopathy, no JVD. CHEST: Chest with diminished breath sounds bilaterally. No wheezes, rales, or rhonchi. CARDIAC: Regular rate and rhythm. S1 and S2, without murmurs, gallops, or rubs. VASCULAR: No Edema. Peripheral pulses normal and equal in all extremities. ABDOMEN: enlarged pannus, lymphedema with thickened skin, non tender and non distended. No rebound or guarding, and no masses palpated. Bowel Sounds normal. MUSCULOSKELETAL: Good range of motion of all major joints. Extremities without clubbing, cyanosis or edema. NEUROLOGIC EXAM: Alert and oriented x 3 No focal sensory or strength deficits. Speech normal. Follows commands. PSYCHIATRIC: Mood normal. SKIN: detail exam as documented in skin assessment - Constitutional Vitals: Temp Pulse Resp BP Pulse Ox 97.8 F 87 27 H 115/63 93 04/17/21 08:00 04/17/21 14:52 04/17/21 14:52 04/17/21 14:00 04/17/21 14:00 General appearance: Present: no acute distress HEART Score - HEART Score Troponin: Troponin T 0.078 ng/mL (0.00-0.029) H D 04/08/21 13:03 Results - Labs CBC & Chem 7: 04/17/21 08:55 04/17/21 08:55 Labs: Laboratory Last Values WBC 8.8 K/mm3 (4.5-11.0) 04/17/21 08:55 RBC 3.96 M/mm3 (3.65-5.03) 04/17/21 08:55 Hgb 8.7 gm/dl (10.1-14.3) L 04/17/21 08:55 Hct 29.4 % (30.3-42.9) L 04/17/21 08:55 MCV 74 fl (79-97) L 04/17/21 08:55 MCH 22 pg (28-32) L 04/17/21 08:55 MCHC 30 % (30-34) 04/17/21 08:55 RDW 24.8 % (13.2-15.2) H 04/17/21 08:55 Plt Count 227 K/mm3 (140-440) 04/17/21 08:55 Add Manual Diff Complete 04/12/21 14:11 Total Counted 100 04/12/21 14:11 Seg Neuts % (Manual) 86.0 % (40.0-70.0) H 04/12/21 14:11 Band Neutrophils % 1.0 % 04/12/21 14:11 Lymphocytes % (Manual) 6.0 % (13.4-35.0) L 04/12/21 14:11 Reactive Lymphs % (Man) 1.0 % 04/12/21 14:11 Monocytes % (Manual) 4.0 % (0.0-7.3) 04/12/21 14:11 Metamyelocytes % 2.0 % 04/12/21 14:11 Myelocytes % 2.0 % 04/08/21 04:03 Nucleated RBC % Not Reportable 04/12/21 14:11 Seg Neutrophils # Man 12.6 K/mm3 (1.8-7.7) H 04/12/21 14:11 Band Neutrophils # 0.1 K/mm3 04/12/21 14:11 Lymphocytes # (Manual) 0.9 K/mm3 (1.2-5.4) L 04/12/21 14:11 Abs React Lymphs (Man) 0.1 K/mm3 04/12/21 14:11 Monocytes # (Manual) 0.6 K/mm3 (0.0-0.8) 04/12/21 14:11 Eosinophils # (Manual) 0.0 K/mm3 (0.0-0.4) 04/12/21 14:11 Basophils # (Manual) 0.0 K/mm3 (0.0-0.1) 04/12/21 14:11 Metamyelocytes # 0.3 K/mm3 04/12/21 14:11 Myelocytes # 0.0 K/mm3 04/12/21 14:11 Promyelocytes # 0.0 K/mm3 04/12/21 14:11 Blast Cells # 0.0 K/mm3 04/12/21 14:11 WBC Morphology Not Reportable 04/12/21 14:11 WBC Morphology TNR 04/12/21 14:11 Hypersegmented Neuts Not Reportable 04/12/21 14:11 Hyposegmented Neuts Not Reportable 04/12/21 14:11 Hypogranular Neuts Not Reportable 04/12/21 14:11 Smudge Cells Not Reportable 04/12/21 14:11 Toxic Granulation Not Reportable 04/12/21 14:11 Toxic Vacuolation Not Reportable 04/12/21 14:11 Dohle Bodies Not Reportable 04/12/21 14:11 Pelger-Huet Anomaly Not Reportable 04/12/21 14:11 Ana Cristina Rods Not Reportable 04/12/21 14:11 Platelet Estimate Consistent w auto 04/12/21 14:11 Clumped Platelets Not Reportable 04/12/21 14:11 Plt Clumps, EDTA Not Reportable 04/12/21 14:11 Large Platelets Not Reportable 04/12/21 14:11 Giant Platelets Not Reportable 04/12/21 14:11 Platelet Satelliting Not Reportable 04/12/21 14:11 Plt Morphology Comment Not Reportable 04/12/21 14:11 RBC Morphology Not Reportable 04/12/21 14:11 Dimorphic RBCs Not Reportable 04/12/21 14:11 Polychromasia Few 04/12/21 14:11 Hypochromasia 1+ 04/12/21 14:11 Poikilocytosis Not Reportable 04/12/21 14:11 Anisocytosis Not Reportable 04/12/21 14:11 Microcytosis Not Reportable 04/12/21 14:11 Macrocytosis Not Reportable 04/12/21 14:11 Spherocytes Not Reportable 04/12/21 14:11 Pappenheimer Bodies Not Reportable 04/12/21 14:11 Sickle Cells Not Reportable 04/12/21 14:11 Target Cells 1+ 04/12/21 14:11 Tear Drop Cells Few 04/12/21 14:11 Ovalocytes Not Reportable 04/12/21 14:11 Helmet Cells Not Reportable 04/12/21 14:11 Saravia-Zavalla Bodies Not Reportable 04/12/21 14:11 [place] Rings Not Reportable 04/12/21 14:11 Excel Cells Not Reportable 04/12/21 14:11 Bite Cells Not Reportable 04/12/21 14:11 Crenated Cell Not Reportable 04/12/21 14:11 Elliptocytes Not Reportable 04/12/21 14:11 Acanthocytes (Spur) Not Reportable 04/12/21 14:11 Rouleaux Not Reportable 04/12/21 14:11 Hemoglobin C Crystals Not Reportable 04/12/21 14:11 Schistocytes Not Reportable 04/12/21 14:11 Malaria parasites Not Reportable 04/12/21 14:11 Tyshawn Bodies Not Reportable 04/12/21 14:11 Hem Pathologist Commnt No 04/12/21 14:11 ABG pH 7.234 (7.320-7.450) L 04/17/21 09:47 POC ABG pCO2 90.5 mmHg (32.0-48.0) H 04/17/21 09:47 ABG pCO2 86.9 mm Hg 04/13/21 18:40 POC ABG pO2 139.4 mmHg (83-108) H 04/17/21 09:47 ABG pO2 81.8 mm Hg (80.0-90.0) 04/13/21 18:40 POC ABG HCO3 37.4 04/17/21 09:47 ABG HCO3 36.2 mmol/L (20.0-26.0) H 04/13/21 18:40 ABG O2 Saturation 99.2 (0-100) 04/17/21 09:47 ABG O2 Content 10.4 (0.0-44) 04/13/21 18:40 POC ABG Base Excess 7.9 04/17/21 09:47 ABG Base Excess 7.4 mmol/L (-2.0-3.0) H 04/13/21 18:40 ABG Hemoglobin 9.5 (12.0-17.5) L 04/17/21 09:47 ABG Oxyhemoglobin 97.2 (94-98) 04/17/21 09:47 ABG Carboxyhemoglobin 1.9 % (0.0-5.0) 04/13/21 18:40 ABG Methemoglobin 0.3 (0.0-1.5) 04/17/21 09:47 ABG Sodium 140.7 mmol/L (136.0-145.0) 04/17/21 09:47 ABG Potassium 4.4 mmol/L (3.40-4.50) 04/17/21 09:47 ABG Chloride 97.0 mmol/L (98-107) L 04/17/21 09:47 ABG Glucose 179 mg/dL (65-95) H 04/17/21 09:47 Oxyhemoglobin 93.7 % (95.0-99.0) L 04/13/21 18:40 Carboxyhemoglobin 1.7 (0.5-1.5) H 04/17/21 09:47 FiO2 30 % 04/13/21 18:40 FiO2 % 45.0 04/17/21 09:47 Sodium 139 mmol/L (137-145) 04/17/21 08:55 Potassium 4.6 mmol/L (3.6-5.0) 04/17/21 08:55 Chloride 94.4 mmol/L (98-107) L 04/17/21 08:55 Carbon Dioxide 37 mmol/L (22-30) H 04/17/21 08:55 Anion Gap 12 mmol/L 04/17/21 08:55 BUN 68 mg/dL (7-17) H 04/17/21 08:55 Creatinine 1.5 mg/dL (0.6-1.2) H 04/17/21 08:55 Estimated GFR 48 ml/min 04/17/21 08:55 BUN/Creatinine Ratio 45 % 04/17/21 08:55 Glucose 178 mg/dL (65-100) H 04/17/21 08:55 POC Glucose 161 mg/dL (70-105) H 04/17/21 11:39 Osmolality 301 Mosm/kg 04/09/21 23:15 Calcium 9.0 mg/dL (8.4-10.2) 04/17/21 08:55 Ionized Calcium 3.6 mg/dL (4.8-5.6) L 04/09/21 23:15 Total Bilirubin 1.60 mg/dL (0.1-1.2) H 04/17/21 08:55 AST 172 units/L (5-40) H 04/17/21 08:55 ALT 437 units/L (7-56) H 04/17/21 08:55 Alkaline Phosphatase 92 units/L (35-129) 04/17/21 08:55 Total Creatine Kinase 1712 units/L (30-135) H 04/10/21 10:04 Troponin T 0.078 ng/mL (0.00-0.029) H D 04/08/21 13:03 NT-Pro-B Natriuret Pep 7573 pg/mL (0-450) H 04/07/21 22:04 Total Protein 10.1 g/dL (6.3-8.2) H 04/17/21 08:55 Albumin 3.2 g/dL (3.9-5) L 04/17/21 08:55 Albumin/Globulin Ratio 0.5 % 04/17/21 08:55 Triglycerides 105 mg/dL (2-149) 04/07/21 22:04 Cholesterol 85 mg/dL (50-199) 04/07/21 22:04 LDL Cholesterol Direct 47 mg/dL (50-130) L 04/07/21 22:04 HDL Cholesterol 25 mg/dL (40-59) L 04/07/21 22:04 Cholesterol/HDL Ratio 3.40 % 04/07/21 22:04 Total Cortisol 41.3 mcg/dL () 04/10/21 10:04 Arterial Blood Glucose 179 mg/dL (65-95) H 04/17/21 09:47 Arterial Blood Ionized Calcium 4.6 mg/dL (4.6-5.3) 04/16/21 07:32 Urine Osmolality 157 Mosm/kg 04/09/21 18:46 Urine Sodium 16 mmol/L 04/09/21 18:46 Coronavirus (PCR) Negative (Negative) 04/14/21 Unknown Hepatitis A IgM Ab Non-reactive (NonReactive) 04/14/21 18:45 Hep Bs Antigen Nonreactive (Negative) 04/14/21 18:45 Hepatitis C Antibody Non-reactive (NonReactive) 04/14/21 18:45 Zambrano/IV: Voiding Method Indwelling Catheter Active Medications - Current Medications Current Medications: Generic Name Dose Route Start Last Admin Trade Name Freq PRN Reason Stop Dose Admin Acetaminophen 650 mg 04/08/21 03:00 04/17/21 06:42 Acetaminophen 325 Mg Tab PO 650 mg Q4H PRN Administration Pain MILD(1-3)/Fever >100.5/BROWN Albuterol 2.5 mg 04/08/21 03:00 Albuterol 2.5 Mg/3 Ml Nebu IH Q4HRT PRN Shortness Of Breath Albuterol/Ipratropium 1 ampul 04/08/21 08:00 04/17/21 14:34 Ipratropium/Albuterol Sulfate 3 Ml Ampul.Neb IH 1 ampul TIDRT EKATERINA Administration Aspirin 325 mg 04/09/21 10:00 04/17/21 09:41 Aspirin Ec 325 Mg Tab PO 325 mg QDAY EKATERINA Administration Atorvastatin Calcium 40 mg 04/08/21 22:00 04/16/21 21:40 Atorvastatin 40 Mg Tab PO 40 mg QHS EKATERINA Administration Benzonatate 100 mg 04/08/21 06:00 04/17/21 13:09 Benzonatate 100 Mg Cap PO 100 mg Q8HR EKATERINA Administration Furosemide 40 mg 04/16/21 18:00 04/17/21 06:42 Furosemide 40 Mg/4 Ml Inj IV 40 mg 0600,1800 EKATERINA Administration Guaifenesin 200 mg 04/12/21 14:47 04/17/21 06:43 Guaifenesin 100 Mg/5 Ml Oral Liqd PO 200 mg Q4H PRN Administration Cough Heparin Sodium (Porcine) 5,000 unit 04/08/21 06:00 04/17/21 13:09 Heparin 5,000 Unit/1 Ml Vial SUB-Q 5,000 unit Q8HR EKATERINA Administration Methylprednisolone Sodium Succinate 20 mg 04/16/21 10:00 04/17/21 09:40 Methylprednisolone Sod Succinate 40 Mg/1 Ml Inj IV 20 mg Q12HR EKATERINA Administration Nitroglycerin 0.4 mg 04/08/21 03:00 Nitroglycerin 0.4 Mg Tab Subl SL Q5M PRN Chest Pain Nystatin 1 applic 04/08/21 18:00 04/17/21 09:41 Nystatin Powder 15 Gm TP 1 applic BID EKATERINA Administration Ondansetron HCl 4 mg 04/08/21 03:00 04/15/21 23:51 Ondansetron 4 Mg/2 Ml Inj IV 4 mg Q8H PRN Administration Nausea And Vomiting Oxycodone/Acetaminophen 1 tab 04/08/21 03:00 04/16/21 21:39 Oxycodone /Acetaminophen 5-325mg Tab PO 1 tab Q6H PRN Administration Pain, Moderate (4-6) Pantoprazole Sodium 40 mg 04/16/21 10:00 04/17/21 09:41 Pantoprazole 40 Mg Inj IV 40 mg QDAY EKATERINA Administration Sodium Chloride 10 ml 04/08/21 10:00 04/17/21 09:40 Sodium Chloride 0.9% 10 Ml Flush Syringe IV 10 ml BID EKATERINA Administration Sodium Chloride 10 ml 04/08/21 03:00 Sodium Chloride 0.9% 10 Ml Flush Syringe IV PRN PRN LINE FLUSH Tramadol HCl 50 mg 04/08/21 03:00 Tramadol 50 Mg Tab PO Q6H PRN Pain, Moderate (4-6) Nutrition/Malnutrition Assess - Dietary Evaluation Nutrition/Malnutrition Findings: Nutrition Notes Start: 04/08/21 14:21 Freq: Status: Active Protocol: Document 04/13/21 17:08 GB (Rec: 04/13/21 17:14 GB [id number]) Nutrition Notes Initial or Follow up Reassessment Current Diagnosis Hypertension Other Pertinent Diagnosis Dyspnea, respiratory distress, morbid obesity Current Diet Regular Labs/Tests 04/13: Na 134, BUN 63, creatinine 2.2, glucose 159, Ca 7.8 Pertinent Medications Lasix, NaCl IV flushes Height 5 ft 4 in Weight 287.5 kg [place] Body Weight (kg) 54.54 BMI 108.8 Weight change and time frame expect weight fluctuations r/t fluid therapy, CHF complications Weight Status Morbidly Obese Subjective/Other Information Per MD notes 04/13: fluid restrictions, on nasal cannula 3L, possibly obesity hypoventilation syndrome, recommended to bariatric consult Percent of energy/protein needs met: Meals and snacks provided meet 100% of estimated energy needs. Current po intake of meals recorded average 50%. Burn Absent Trauma Absent GI Symptoms None Food Allergy No Current % PO Fair (50-74%) Minimum of two criteria No #1 Nutrition Diagnosis Overweight/obesity Comments: Discussed diet/life style changes using small goal successes to advancement, encouraged outpatient RD counseling at bariatric center Etiology dyspnea, respiratory distress As Evidenced by Signs and Symptoms BMI 103, IBW 498% Diagnosis Progress(for reassessment Continues documentation) Is patient on ventilator? No Is Patient Ambulatory and/or Out of Bed No REE-([facility]-confined to bed) 4277.724 Kcal/Kg value to use for calculation 10 Approximate Energy Requirements Using 2875 kcal/Kg Calculation Used for Recommendations Kcal/kg Additional Notes Protein 0.6 g/kg r/t BMI over 50: 163g Fluids: 1ml/kcal or per MD Nutrition Intervention Change Diet Order: continue with current diet Goal #1 Pt to contact and make appointment with outpatient RD in bariatric center Goal #2 weight to decrease -1% during LOS Follow-Up By: 04/20/21 Additional Comments f/u for weight loss, po intake
[2021-04-17] MEDS ORDERED: LORazepam 2 MG/ML VIAL IV ONE ×2 (16:07→21:08)
[2021-04-17] MEDS: oxyCODONE /ACETAMINOPHEN 5-325MG TAB PO PRN (21:19)
[2021-04-18] MEDS ORDERED: LORazepam 2 MG/ML VIAL IV ONE (04:25)
[2021-04-18] MEDS: HEPARIN 5,000 UNIT/1 ML VIAL SUB-Q SCH ×3 (06:25→21:06)
[2021-04-18] MEDS: FUROSEMIDE 40 MG/4 ML INJ IV SCH (06:25)
[2021-04-18] MEDS: BENZONATATE 100 MG CAP PO SCH ×3 (06:26→21:06)
[2021-04-18] MEDS: IPRATROPIUM/ALBUTEROL SULFATE 3 ML AMPUL.NEB IH SCH ×3 (08:47→20:40)
[2021-04-18] MEDS: NYSTATIN POWDER 15 GM TP SCH ×2 (10:06→21:12)
[2021-04-18] MEDS: methylPREDNISolone Sod Succinate 40 MG/1 ML INJ IV SCH ×2 (10:06→21:06)
[2021-04-18] MEDS: ASPIRIN EC 325 MG TAB PO SCH (10:06)
[2021-04-18] MEDS: PANTOPRAZOLE 40 MG INJ IV SCH (10:06)
--- NOTE | 2021-04-18 11:13 | Progress Note ---
Assessment and Plan Assessment and plan: (1) Non-ST elevation ME (NSTEMI) type II Procardia Current Visit: Yes Status: Acute Plan to address problem: Admit the patient to the medical telemetry. Aspirin 325 mg p.o. daily. Lipitor 40 mg p.o. daily. Nitroglycerin as needed. We do the serial cardiac enzyme. We also consult cardiology for evaluation and order echocardiogram. (2) Acute exacerbation of CHF (congestive heart failure) Current Visit: Yes Status: Acute Plan to address problem: Fluid restriction. Maintain input output. Lasix 40 mg IV every 12 hours. Oxygen via nasal cannula 3 L/min. DuoNeb by nebulizer every 4 hours. Echocardiogram. Cardiology consult (3) Hypertension Current Visit: Yes Status: Acute Plan to address problem: We will continue the home medication. Hydralazine 10 mg IV every 6 hours as needed. We will monitor the blood pressure closely (4) COPD (chronic obstructive pulmonary disease) Current Visit: Yes Status: Acute Plan to address problem: Oxygen by nasal cannula 3 L/min. DuoNeb via nebulizer every 4 hours. Albuterol via nebulizer every 4 hours as needed. Super (5) Morbid obesity Current Visit: Yes Status: Acute Plan to address problem: We counseled regarding weight reduction. Outpatient follow-up with bariatric surgeon (6) Hyperglycemia Current Visit: Yes Status: Acute Plan to address problem: We will give 1 ampoule of D50. We will put the patient on cardiac diet. We will monitor the blood glucose closely (7) acute kidney injury with vasomotor nephropathy (8) Lymphedema of the abdominal wall (9)Anemia of chronic disease (10)Possible passive congestive hepatic failure with underlying NAFLD (11) DVT prophylaxis Current Visit: No Status: Acute Plan to address problem: Heparin 5000 units subcu every 8 hours for DVT prophylaxis. Pepcid 20 mg p.o. twice daily for GI prophylaxis. Patient is a full code 04/09 -Patient is on heparin drip for non-STEMI, cardiology is following. -Patient is off Lasix and SUNG inhibitors because of GILBERTO. -Kidney function is worsening overnight and I put a consult for nephrology. -Patient is hypotensive and blood pressure from this morning was 101/41. We will continue to monitor. And if it is dropping we we will give him fluid. -Echo was done and EF of 50 to 55%. Diastolic dysfunction is indeterminate. Management per cardiology -Patient has COPD continues on dexamethasone, nebulizer treatment as needed. -Patient has hyponatremia and hyperkalemia. I give the patient Kayexalate. Monitor electrolytes. Will follow nephrology for additional recommendation. 04/10 -Renal function is worsening, nephrology is following -Blood pressure is better today -Hyperkalemia; I added Kayexalate -Morbid obesity 04/11 -Slight improvement in creatinine. Hyponatremia worsened. Nephrology is following and put the patient back on Lasix. -Blood PRESSURE IS BETTER today -Potassium this morning was 5.8, I ordered 60 g of Kayexalate -Morbidly obese -Obesity hypoventilation syndrome 04/12 -Creatinine is improving and this morning was 2.4 -Hyponatremia improved this morning was 134. Patient is on Lasix -Blood pressure is better -Patient is on 10 L of oxygen; worsened -Morbidly obese, CLAUDIA 04/13: Follow ordered ultrasound of abdomen, per Physician unable to get CT. I ordered an ABG due to my concern about her breathing pattern this morning, patient may benefit from. Will try to establish if patient has a primary pulmonary doctor. ABG is showing consistent with Respiratory Acidosis. Will place on BIPAP now. May need to transfer to IMCU for closer monitoring. Patient likely with Obesity Hypoventilation syndrome. cardiology work up, ongoing. RENAL SHOWING SOME IMPROVEMENT Guarded prognosis 04/14: Patient seen and examined today identified some lesion under the pannus will obtain wound care and wound surgeon evaluation. Nephrology input noted continue diuresis and stop the sodium tabs creatinine is stable. I did discuss with the family and updated them. We will continue to hold SUNG and ARB and if pressures continue to drop may need to hold diuresis also despite as written above. Monitor labs including H&H. She is more awake review of ABG shows improving CO2. Will discuss with case management as patient may need BiPAP on discharge home. I also updated the family 04/15: Patient showing some clinical improvement. Liver enzymes is showing mild improvement although bilirubin increased slightly. GI input noted and as discussed by his notes below "Abnormal liver enzymes in hepatocellular pattern. broad ddx and likely multifactorial causes including NAFLD, congestive hepatopathy, possibly DILI. will check viral hep serologies. US with limited views, possible coarsening of the liver" Patient also evaluated by surgery noted with the lymphedema of abdominal wall and open wound of the abdominal wall without penetration into the abdominal cavity with recommendation to pack the wounds daily with mesalt. Need to maintain dry environment discussed with nursing staff. Elevate the pannus and optimize nutrition for which I will get nutritional consult. No surgical intervention at this time. Patient is bedbound when I asked when last she ambulated she said while "I guess he has not worked" but it has been a while. Unfortunately the LTAC center unwilling to accept the patient will discuss with pulmonary and with case management about obtaining BiPAP for this patient and possible SNF referral. 04/16: Patient this morning and was noted significantly lethargic and unrespons mitch respiratory and a code to be called. The patient resuscitated without any invasive procedure. ABG was obtained showed a CO2 of 142. Despite using BiPAP for some time through the night, sure how long she used it for. I have discontinued all IV opioids and recommend no IV opioids for this patient at this time. I also discontinued p.o. medications as an essential medication and change to IV. We will repeat an ABG in an hour to see if there is some improvement. Patient remains at high risk for possible intubation. Clinical condition is guarded 04/17: Patient remains on BiPAP this am, has some intermittent twitching, will check EEG, not likely seizure, but will monitor. Continue current management , check Albumin and Pre-Albumin level. Remains critically ill. Liver status showing improvement. 04/18: Patient with elevated D-dimer unfortunately size precludes being able to have a CTA chest done here to rule out pulmonary embolism. Doppler of lower extremities is pending. We will continue subcu anticoagulation with heparin at this time. Until Doppler is resolved. Patient is not hypoxic so doubt pulmonary embolism at this time. Her problem remains hypercapnia. I did take time to go over her history while she has been around hospital in the past and noticed a remarkable increase in her BMI from the last 2 years. Discussed with the special education resource teacher will agree to check thyroid function test. Critical care time 35- minute History Interval history: Patient seen and examined, remains on BiPAP, no further twitching but delirious intermittently Hospitalist Physical - Physical exam Narrative exam: VITAL SIGNS: Reviewed. GENERAL: The patient is morbidly obese, lethargic on BiPAP Placed she is waking up some, Vital signs as documented. HEAD: No signs of head trauma. EYES: Pupils are equal. Extraocular motions intact. EARS: Hearing grossly intact. MOUTH: Oropharynx is normal. NECK: No adenopathy, no JVD. CHEST: Chest with diminished breath sounds bilaterally. No wheezes, rales, or rhonchi. CARDIAC: Regular rate and rhythm. S1 and S2, without murmurs, gallops, or rubs. VASCULAR: No Edema. Peripheral pulses normal and equal in all extremities. ABDOMEN: enlarged pannus, lymphedema with thickened skin, non tender and non distended. No rebound or guarding, and no masses palpated. Bowel Sounds normal. MUSCULOSKELETAL: Good range of motion of all major joints. Extremities without clubbing, cyanosis or edema. NEUROLOGIC EXAM: Alert and oriented x 3 No focal sensory or strength deficits. Speech normal. Follows commands. PSYCHIATRIC: Mood normal. SKIN: detail exam as documented in skin assessment - Constitutional Vitals: Temp Pulse Resp BP Pulse Ox 98.4 F 89 30 H 154/75 90 04/18/21 08:00 04/18/21 11:11 04/18/21 11:11 04/18/21 08:36 04/18/21 11:11 General appearance: Present: no acute distress HEART Score - HEART Score Troponin: Troponin T 0.078 ng/mL (0.00-0.029) H D 04/08/21 13:03 Results - Labs CBC & Chem 7: 04/19/21 04:40 04/19/21 04:40 Labs: Laboratory Last Values WBC 8.8 K/mm3 (4.5-11.0) 04/17/21 08:55 RBC 3.96 M/mm3 (3.65-5.03) 04/17/21 08:55 Hgb 8.7 gm/dl (10.1-14.3) L 04/17/21 08:55 Hct 29.4 % (30.3-42.9) L 04/17/21 08:55 MCV 74 fl (79-97) L 04/17/21 08:55 MCH 22 pg (28-32) L 04/17/21 08:55 MCHC 30 % (30-34) 04/17/21 08:55 RDW 24.8 % (13.2-15.2) H 04/17/21 08:55 Plt Count 227 K/mm3 (140-440) 04/17/21 08:55 Add Manual Diff Complete 04/12/21 14:11 Total Counted 100 04/12/21 14:11 Seg Neuts % (Manual) 86.0 % (40.0-70.0) H 04/12/21 14:11 Band Neutrophils % 1.0 % 04/12/21 14:11 Lymphocytes % (Manual) 6.0 % (13.4-35.0) L 04/12/21 14:11 Reactive Lymphs % (Man) 1.0 % 04/12/21 14:11 Monocytes % (Manual) 4.0 % (0.0-7.3) 04/12/21 14:11 Metamyelocytes % 2.0 % 04/12/21 14:11 Myelocytes % 2.0 % 04/08/21 04:03 Nucleated RBC % Not Reportable 04/12/21 14:11 Seg Neutrophils # Man 12.6 K/mm3 (1.8-7.7) H 04/12/21 14:11 Band Neutrophils # 0.1 K/mm3 04/12/21 14:11 Lymphocytes # (Manual) 0.9 K/mm3 (1.2-5.4) L 04/12/21 14:11 Abs React Lymphs (Man) 0.1 K/mm3 04/12/21 14:11 Monocytes # (Manual) 0.6 K/mm3 (0.0-0.8) 04/12/21 14:11 Eosinophils # (Manual) 0.0 K/mm3 (0.0-0.4) 04/12/21 14:11 Basophils # (Manual) 0.0 K/mm3 (0.0-0.1) 04/12/21 14:11 Metamyelocytes # 0.3 K/mm3 04/12/21 14:11 Myelocytes # 0.0 K/mm3 04/12/21 14:11 Promyelocytes # 0.0 K/mm3 04/12/21 14:11 Blast Cells # 0.0 K/mm3 04/12/21 14:11 WBC Morphology Not Reportable 04/12/21 14:11 WBC Morphology TNR 04/12/21 14:11 Hypersegmented Neuts Not Reportable 04/12/21 14:11 Hyposegmented Neuts Not Reportable 04/12/21 14:11 Hypogranular Neuts Not Reportable 04/12/21 14:11 Smudge Cells Not Reportable 04/12/21 14:11 Toxic Granulation Not Reportable 04/12/21 14:11 Toxic Vacuolation Not Reportable 04/12/21 14:11 Dohle Bodies Not Reportable 04/12/21 14:11 Pelger-Huet Anomaly Not Reportable 04/12/21 14:11 Ana Cristina Rods Not Reportable 04/12/21 14:11 Platelet Estimate Consistent w auto 04/12/21 14:11 Clumped Platelets Not Reportable 04/12/21 14:11 Plt Clumps, EDTA Not Reportable 04/12/21 14:11 Large Platelets Not Reportable 04/12/21 14:11 Giant Platelets Not Reportable 04/12/21 14:11 Platelet Satelliting Not Reportable 04/12/21 14:11 Plt Morphology Comment Not Reportable 04/12/21 14:11 RBC Morphology Not Reportable 04/12/21 14:11 Dimorphic RBCs Not Reportable 04/12/21 14:11 Polychromasia Few 04/12/21 14:11 Hypochromasia 1+ 04/12/21 14:11 Poikilocytosis Not Reportable 04/12/21 14:11 Anisocytosis Not Reportable 04/12/21 14:11 Microcytosis Not Reportable 04/12/21 14:11 Macrocytosis Not Reportable 04/12/21 14:11 Spherocytes Not Reportable 04/12/21 14:11 Pappenheimer Bodies Not Reportable 04/12/21 14:11 Sickle Cells Not Reportable 04/12/21 14:11 Target Cells 1+ 04/12/21 14:11 Tear Drop Cells Few 04/12/21 14:11 Ovalocytes Not Reportable 04/12/21 14:11 Helmet Cells Not Reportable 04/12/21 14:11 [place] Bodies Not Reportable 04/12/21 14:11 [place] Rings Not Reportable 04/12/21 14:11 Sara Cells Not Reportable 04/12/21 14:11 Bite Cells Not Reportable 04/12/21 14:11 Crenated Cell Not Reportable 04/12/21 14:11 Elliptocytes Not Reportable 04/12/21 14:11 Acanthocytes (Spur) Not Reportable 04/12/21 14:11 Rouleaux Not Reportable 04/12/21 14:11 Hemoglobin C Crystals Not Reportable 04/12/21 14:11 Schistocytes Not Reportable 04/12/21 14:11 Malaria parasites Not Reportable 04/12/21 14:11 Tyshawn Bodies Not Reportable 04/12/21 14:11 Hem Pathologist Commnt No 04/12/21 14:11 D-Dimer 5410.10 ng/mlDDU (0-234) H 04/17/21 16:03 ABG pH 7.234 (7.320-7.450) L 04/17/21 09:47 POC ABG pCO2 90.5 mmHg (32.0-48.0) H 04/17/21 09:47 ABG pCO2 86.9 mm Hg 04/13/21 18:40 POC ABG pO2 139.4 mmHg (83-108) H 04/17/21 09:47 ABG pO2 81.8 mm Hg (80.0-90.0) 04/13/21 18:40 POC ABG HCO3 37.4 04/17/21 09:47 ABG HCO3 36.2 mmol/L (20.0-26.0) H 04/13/21 18:40 ABG O2 Saturation 99.2 (0-100) 04/17/21 09:47 ABG O2 Content 10.4 (0.0-44) 04/13/21 18:40 POC ABG Base Excess 7.9 04/17/21 09:47 ABG Base Excess 7.4 mmol/L (-2.0-3.0) H 04/13/21 18:40 ABG Hemoglobin 9.5 (12.0-17.5) L 04/17/21 09:47 ABG Oxyhemoglobin 97.2 (94-98) 04/17/21 09:47 ABG Carboxyhemoglobin 1.9 % (0.0-5.0) 04/13/21 18:40 ABG Methemoglobin 0.3 (0.0-1.5) 04/17/21 09:47 ABG Sodium 140.7 mmol/L (136.0-145.0) 04/17/21 09:47 ABG Potassium 4.4 mmol/L (3.40-4.50) 04/17/21 09:47 ABG Chloride 97.0 mmol/L (98-107) L 04/17/21 09:47 ABG Glucose 179 mg/dL (65-95) H 04/17/21 09:47 Oxyhemoglobin 93.7 % (95.0-99.0) L 04/13/21 18:40 Carboxyhemoglobin 1.7 (0.5-1.5) H 04/17/21 09:47 FiO2 30 % 04/13/21 18:40 FiO2 % 45.0 04/17/21 09:47 Sodium 139 mmol/L (137-145) 04/17/21 08:55 Potassium 4.6 mmol/L (3.6-5.0) 04/17/21 08:55 Chloride 94.4 mmol/L (98-107) L 04/17/21 08:55 Carbon Dioxide 37 mmol/L (22-30) H 04/17/21 08:55 Anion Gap 12 mmol/L 04/17/21 08:55 BUN 68 mg/dL (7-17) H 04/17/21 08:55 Creatinine 1.5 mg/dL (0.6-1.2) H 04/17/21 08:55 Estimated GFR 48 ml/min 04/17/21 08:55 BUN/Creatinine Ratio 45 % 04/17/21 08:55 Glucose 178 mg/dL (65-100) H 04/17/21 08:55 POC Glucose 150 mg/dL (70-105) H 04/17/21 21:52 Osmolality 301 Mosm/kg 04/09/21 23:15 Calcium 9.0 mg/dL (8.4-10.2) 04/17/21 08:55 Ionized Calcium 3.6 mg/dL (4.8-5.6) L 04/09/21 23:15 Total Bilirubin 1.60 mg/dL (0.1-1.2) H 04/17/21 08:55 AST 172 units/L (5-40) H 04/17/21 08:55 ALT 437 units/L (7-56) H 04/17/21 08:55 Alkaline Phosphatase 92 units/L (35-129) 04/17/21 08:55 Total Creatine Kinase 1712 units/L (30-135) H 04/10/21 10:04 Troponin T 0.078 ng/mL (0.00-0.029) H D 04/08/21 13:03 NT-Pro-B Natriuret Pep 7573 pg/mL (0-450) H 04/07/21 22:04 Total Protein 10.1 g/dL (6.3-8.2) H 04/17/21 08:55 Albumin 3.2 g/dL (3.9-5) L 04/17/21 08:55 Albumin/Globulin Ratio 0.5 % 04/17/21 08:55 Triglycerides 105 mg/dL (2-149) 04/07/21 22:04 Cholesterol 85 mg/dL (50-199) 04/07/21 22:04 LDL Cholesterol Direct 47 mg/dL (50-130) L 04/07/21 22:04 HDL Cholesterol 25 mg/dL (40-59) L 04/07/21 22:04 Cholesterol/HDL Ratio 3.40 % 04/07/21 22:04 Total Cortisol 41.3 mcg/dL () 04/10/21 10:04 Arterial Blood Glucose 179 mg/dL (65-95) H 04/17/21 09:47 Arterial Blood Ionized Calcium 4.6 mg/dL (4.6-5.3) 04/16/21 07:32 Urine Osmolality 157 Mosm/kg 04/09/21 18:46 Urine Sodium 16 mmol/L 04/09/21 18:46 Coronavirus (PCR) Negative (Negative) 04/14/21 Unknown Hepatitis A IgM Ab Non-reactive (NonReactive) 04/14/21 18:45 Hep Bs Antigen Nonreactive (Negative) 04/14/21 18:45 Hepatitis C Antibody Non-reactive (NonReactive) 04/14/21 18:45 Zambrano/IV: Voiding Method Indwelling Catheter Active Medications - Current Medications Current Medications: Generic Name Dose Route Start Last Admin Trade Name Freq PRN Reason Stop Dose Admin Acetaminophen 650 mg 04/08/21 03:00 04/17/21 06:42 Acetaminophen 325 Mg Tab PO 650 mg Q4H PRN Administration Pain MILD(1-3)/Fever >100.5/BROWN Albuterol 2.5 mg 04/08/21 03:00 Albuterol 2.5 Mg/3 Ml Nebu IH Q4HRT PRN Shortness Of Breath Albuterol/Ipratropium 1 ampul 04/08/21 08:00 04/18/21 08:47 Ipratropium/Albuterol Sulfate 3 Ml Ampul.Neb IH 1 ampul TIDRT EKATERINA Administration Aspirin 325 mg 04/09/21 10:00 04/18/21 10:06 Aspirin Ec 325 Mg Tab PO 325 mg QDAY EKATERINA Administration Atorvastatin Calcium 40 mg 04/08/21 22:00 04/18/21 03:50 Atorvastatin 40 Mg Tab PO 40 mg QHS EKATERINA Administration Benzonatate 100 mg 04/08/21 06:00 04/18/21 06:26 Benzonatate 100 Mg Cap PO 100 mg Q8HR EKATERINA Administration Furosemide 40 mg 04/16/21 18:00 04/18/21 06:25 Furosemide 40 Mg/4 Ml Inj IV 40 mg 0600,1800 EKATERINA Administration Guaifenesin 200 mg 04/12/21 14:47 04/17/21 06:43 Guaifenesin 100 Mg/5 Ml Oral Liqd PO 200 mg Q4H PRN Administration Cough Heparin Sodium (Porcine) 5,000 unit 04/08/21 06:00 04/18/21 06:25 Heparin 5,000 Unit/1 Ml Vial SUB-Q 5,000 unit Q8HR EKATERINA Administration Methylprednisolone Sodium Succinate 20 mg 04/16/21 10:00 04/18/21 10:06 Methylprednisolone Sod Succinate 40 Mg/1 Ml Inj IV 20 mg Q12HR EKATERINA Administration Nitroglycerin 0.4 mg 04/08/21 03:00 Nitroglycerin 0.4 Mg Tab Subl SL Q5M PRN Chest Pain Nystatin 1 applic 04/08/21 18:00 04/18/21 10:06 Nystatin Powder 15 Gm TP 1 applic BID EKATERINA Administration Ondansetron HCl 4 mg 04/08/21 03:00 04/15/21 23:51 Ondansetron 4 Mg/2 Ml Inj IV 4 mg Q8H PRN Administration Nausea And Vomiting Oxycodone/Acetaminophen 1 tab 04/08/21 03:00 04/17/21 21:19 Oxycodone /Acetaminophen 5-325mg Tab PO 1 tab Q6H PRN Administration Pain, Moderate (4-6) Pantoprazole Sodium 40 mg 04/16/21 10:00 04/18/21 10:06 Pantoprazole 40 Mg Inj IV 40 mg QDAY EKATERINA Administration Sodium Chloride 10 ml 04/08/21 10:00 04/18/21 10:07 Sodium Chloride 0.9% 10 Ml Flush Syringe IV 10 ml BID EKATERINA Administration Sodium Chloride 10 ml 04/08/21 03:00 Sodium Chloride 0.9% 10 Ml Flush Syringe IV PRN PRN LINE FLUSH Tramadol HCl 50 mg 04/08/21 03:00 Tramadol 50 Mg Tab PO Q6H PRN Pain, Moderate (4-6) Nutrition/Malnutrition Assess - Dietary Evaluation Nutrition/Malnutrition Findings: Nutrition Notes Start: 04/08/21 14:21 Freq: Status: Active Protocol: Document 04/13/21 17:08 GB (Rec: 04/13/21 17:14 GB [email or web address]) Nutrition Notes Initial or Follow up Reassessment Current Diagnosis Hypertension Other Pertinent Diagnosis Dyspnea, respiratory distress, morbid obesity Current Diet Regular Labs/Tests 04/13: Na 134, BUN 63, creatinine 2.2, glucose 159, Ca 7.8 Pertinent Medications Lasix, NaCl IV flushes Height 5 ft 4 in Weight 287.5 kg [place] Body Weight (kg) 54.54 BMI 108.8 Weight change and time frame expect weight fluctuations r/t fluid therapy, CHF complications Weight Status Morbidly Obese Subjective/Other Information Per MD notes 04/13: fluid restrictions, on nasal cannula 3L, possibly obesity hypoventilation syndrome, recommended to bariatric consult Percent of energy/protein needs met: Meals and snacks provided meet 100% of estimated energy needs. Current po intake of meals recorded average 50%. Burn Absent Trauma Absent GI Symptoms None Food Allergy No Current % PO Fair (50-74%) Minimum of two criteria No #1 Nutrition Diagnosis Overweight/obesity Comments: Discussed diet/life style changes using small goal successes to advancement, encouraged outpatient RD counseling at bariatric center Etiology dyspnea, respiratory distress As Evidenced by Signs and Symptoms BMI 103, IBW 498% Diagnosis Progress(for reassessment Continues documentation) Is patient on ventilator? No Is Patient Ambulatory and/or Out of Bed No REE-([facility]-confined to bed) 4277.724 Kcal/Kg value to use for calculation 10 Approximate Energy Requirements Using 2875 kcal/Kg Calculation Used for Recommendations Kcal/kg Additional Notes Protein 0.6 g/kg r/t BMI over 50: 163g Fluids: 1ml/kcal or per MD Nutrition Intervention Change Diet Order: continue with current diet Goal #1 Pt to contact and make appointment with outpatient RD in bariatric center Goal #2 weight to decrease -1% during LOS Follow-Up By: 04/20/21 Additional Comments f/u for weight loss, po intake
[2021-04-18] MEDS ORDERED: HEPARIN 10,000 UNITS/10 ML VIAL IV PRN (11:14)
[2021-04-18 11:52] LABS: Calcium 9.3 mg/dL (8.4-10.2)
[2021-04-18] MEDS ORDERED: HEPARIN/ 0.45% NACL DRIP 25,000 UNIT/500 ML BAG IV SCH (12:00)
--- NOTE | 2021-04-18 12:16 | Progress Note ---
Assessment and Plan 35 years old female with history of morbid obesity, hypertension, asthma , sleep apnea was brought to the emergency room because of shortness of breath, edema, generalized malaise, fatigue, and weakness for last couple of days. She states she just does not feel well. She has a headache. She states her legs are swollen. She feels as though she is retaining fluid. She states that she went to her regular doctors on the . They tested her for Covid. It was negative. She was told to go see a auto parts salesperson. She is not seen a car diologist as of yet. She came in here because she was not feeling well and did not know what to do. She has had no sick contacts. In the emergency room patient is found to have acute CHF exacerbation patient proBNP is 7573 also patient cardiac enzyme is elevated troponin is 0.043. Patient blood glucose also 55 patient is hypoglycemic Patients present blood sugur 130. Patient is awake. Resting on BIPAP 24/8, rate 25, FIO2 35% and O2 saturation 97%. Mild increased work of breathing on present settings. ABG on FIO2 45% ABG pH 7.234 (7.320-7.450) L 04/17/21 09:47 POC ABG pCO2 90.5 mmHg (32.0-48.0) H 04/17/21 09:47 ABG pCO2 86.9 mm Hg 04/13/21 18:40 POC ABG pO2 139.4 mmHg (83-108) H 04/17/21 09:47 ABG pO2 81.8 mm Hg (80.0-90.0) 04/13/21 18:40 POC ABG HCO3 37.4 04/17/21 09:47 ABG O2 Saturation 99.2 (0-100) 04/17/21 09:47 Patient afebrile. No leukocytosis. Blood pressure 154/75, Pulse 93 Patients D dimer 04/17/21 : 5410.10 Patient presently on albuterol/atrovent aerosol treatments q 6 hours, S/C Hepatin, Famotidine and I/V SoluMedrol. I spent critical care time of 35 minutes, review the chart, examine the patient, review lab results, talking to the nursing staff and respiratory therapy and work out plan of treatment in this critically ill morbidly Obese patient. - Patient Problems (1) Acute respiratory failure with hypoxia and hypercapnia Current Visit: Yes Status: Acute Plan to address problem: BIPAP 24/8, rate 25, FIO2 35% Albuterol/atrovent aerosol treatments. Continue Solumedrol Contibue S/C Heparin. Continue famotidine. (2) Acute exacerbation of CHF (congestive heart failure) Current Visit: Yes Status: Acute Plan to address problem: Management as per cardiology. (3) Hypertension Current Visit: Yes Status: Acute Plan to address problem: Management as per primary care. (4) Morbid obesity with BMI of 70 and over, adult Current Visit: No Status: Acute Plan to address problem: Weight reduction diet. Mobility protocol Fall precautions. (5) Obesity hypoventilation syndrome Current Visit: No Status: Acute Plan to address problem: BIPAP 24/8, rate 25, FIO2 35%. (6) Sleep apnea Current Visit: No Status: Acute Plan to address problem: BIPAP 24/8, rate 25, FIO2 35%. Sleep study if she can as out patient. Subjective Date of service: 04/18/21 Principal diagnosis: Ac hypoxemic and hypercapnic resp failure; AE-CHF; Morbid obesity; CLAUDIA/OHS Interval history: 35 years old female with history of morbid obesity, hypertension, asthma COPD sleep apnea was brought to the emergency room because of shortness of breath, edema, generalized malaise, fatigue, and weakness for last couple of days. She states she just does not feel well. She has a headache. She states her legs ar e swollen. She feels as though she is retaining fluid. She states that she went to her regular doctors on the . They tested her for Covid. It was negative. She was told to go see a auto parts salesperson. She is not seen a auto parts salesperson as of yet. She came in here because she was not feeling well and did not know what to do. She has had no sick contacts. In the emergency room patient is found to have acute CHF exacerbation patient proBNP is 7573 also patient cardiac enzyme is elevated troponin is 0.043. Patient blood glucose also 55 patient is hypoglycemic. Patients present blood sugur 130. Patient is awake. Resting on BIPAP 24/8, rate 25, FIO2 35% and O2 saturation 97%. Mild increased work of breathing on present settings. ABG on FIO2 45% ABG pH 7.234 (7.320-7.450) L 04/17/21 09:47 POC ABG pCO2 90.5 mmHg (32.0-48.0) H 04/17/21 09:47 ABG pCO2 86.9 mm Hg 04/13/21 18:40 POC ABG pO2 139.4 mmHg (83-108) H 04/17/21 09:47 ABG pO2 81.8 mm Hg (80.0-90.0) 04/13/21 18:40 POC ABG HCO3 37.4 04/17/21 09:47 ABG O2 Saturation 99.2 (0-100) 04/17/21 09:47 Patient afebrile. No leukocytosis. Blood pressure 154/75, Pulse 93 Patients D dimer 04/17/21 : 5410.10 Patient presently on albuterol/atrovent aerosol treatments q 6 hours, S/C Hepatin, Famotidine and I/V SoluMedrol. Objective Vital Signs - 12hr 04/18/21 04/18/21 04/18/21 00:30 01:00 01:30 Temperature Pulse Rate 109 H 88 96 H Pulse Rate [ From Monitor] Respiratory 21 13 11 L Rate Blood Pressure 141/89 137/78 137/78 O2 Sat by Pulse 99 100 100 Oximetry 04/18/21 04/18/21 04/18/21 01:38 02:00 02:31 Temperature Pulse Rate 90 89 92 H Pulse Rate [ 80 From Monitor] Respiratory 20 13 18 Rate Blood Pressure 147/96 151/70 O2 Sat by Pulse 98 100 98 Oximetry 04/18/21 04/18/21 04/18/21 03:00 03:31 04:01 Temperature Pulse Rate 87 89 Pulse Rate [ From Monitor] Respiratory 24 12 Rate Blood Pressure 130/77 132/88 117/100 O2 Sat by Pulse 99 76 L 98 Oximetry 04/18/21 04/18/21 04/18/21 04:30 04:42 04:50 Temperature 98.2 F Pulse Rate 92 H 92 H Pulse Rate [ From Monitor] Respiratory 15 26 H Rate Blood Pressure 131/99 131/99 O2 Sat by Pulse 99 99 Oximetry 04/18/21 04/18/21 04/18/21 05:01 05:20 05:31 Temperature Pulse Rate 100 H 90 95 H Pulse Rate [ From Monitor] Respiratory 22 20 17 Rate Blood Pressure 130/112 131/99 O2 Sat by Pulse 86 98 98 Oximetry 04/18/21 04/18/21 04/18/21 06:00 06:03 06:31 Temperature Pulse Rate 93 H 95 H 95 H Pulse Rate [ From Monitor] Respiratory 22 23 Rate Blood Pressure 146/78 179/115 O2 Sat by Pulse 98 99 Oximetry 04/18/21 04/18/21 04/18/21 07:00 08:00 08:36 Temperature 98.4 F Pulse Rate 93 H Pulse Rate [ From Monitor] Respiratory 27 H Rate Blood Pressure 148/90 154/75 O2 Sat by Pulse 96 Oximetry 04/18/21 04/18/21 10:33 11:11 Temperature Pulse Rate 89 Pulse Rate [ From Monitor] Respiratory 30 H Rate Blood Pressure O2 Sat by Pulse 100 90 Oximetry Constitutional: no acute distress, alert, other (young extremely obese female with mildly increased respiratory effort at rest on NIV) Eyes: non-icteric ENT: oropharynx moist, other (BIPAP FFM) Neck: supple, no lymphadenopathy, no JVD Effort: mildly labored Ascultation: Bilateral: diminished breath sounds, rhonchi Percussion: Bilateral: not dull Cardiovascular: regular rate and rhythm Gastrointestinal: normoactive bowel sounds, soft, non-tender, non-distended (protuberant) Integumentary: rash (stasis dermatitis type), other (Stasis dermatititis on legs and abdomen; see [facility] notes for full details) Extremities: pulses normal, no ischemia or petechiae, edema (2+), other (stasis dermatitis) Neurologic: non-focal exam (grossly), pupils equal and round, CN II-XII normal Psychiatric: depressed CBC and BMP: 04/17/21 08:55 04/18/21 10:20 ABG, PT/INR, D-dimer: ABG ABG pH 7.234 (7.320-7.450) L 04/17/21 09:47 POC ABG pCO2 90.5 mmHg (32.0-48.0) H 04/17/21 09:47 ABG pCO2 86.9 mm Hg 04/13/21 18:40 POC ABG pO2 139.4 mmHg (83-108) H 04/17/21 09:47 ABG pO2 81.8 mm Hg (80.0-90.0) 04/13/21 18:40 POC ABG HCO3 37.4 04/17/21 09:47 ABG O2 Saturation 99.2 (0-100) 04/17/21 09:47 PT/INR, D-dimer D-Dimer 5410.10 ng/mlDDU (0-234) H 04/17/21 16:03 Abnormal lab findings: Abnormal Labs 04/07/21 04/07/21 04/08/21 22:04 22:04 00:18 WBC 17.7 H Hgb 9.1 L Hct MCV 77 L MCH 21 L MCHC 27 L RDW 24.3 H Seg Neuts % (Manual) Lymphocytes % (Manual) Nucleated RBC % Seg Neutrophils # Man Lymphocytes # (Manual) Monocytes # (Manual) D-Dimer ABG pH POC ABG pCO2 POC ABG pO2 ABG pO2 ABG HCO3 ABG Base Excess ABG Hemoglobin ABG Oxyhemoglobin ABG Sodium ABG Chloride ABG Glucose Oxyhemoglobin Carboxyhemoglobin Sodium 135 L Potassium Chloride 91.0 L Carbon Dioxide 17 L BUN Creatinine 1.4 H Glucose 55 L POC Glucose 49 L Calcium Ionized Calcium Total Bilirubin AST ALT Total Creatine Kinase Troponin T 0.043 H NT-Pro-B Natriuret Pep 7573 H Total Protein Albumin LDL Cholesterol Direct 47 L HDL Cholesterol 25 L Arterial Blood Glucose 04/08/21 04/08/21 04/08/21 04:03 04:03 09:22 WBC 24.3 H Hgb 9.3 L Hct MCV 74 L MCH 21 L MCHC 29 L RDW 23.1 H Seg Neuts % (Manual) 78.0 H Lymphocytes % (Manual) 7.0 L Nucleated RBC % 1.0 H Seg Neutrophils # Man 19.0 H Lymphocytes # (Manual) Monocytes # (Manual) 1.0 H D-Dimer ABG pH POC ABG pCO2 POC ABG pO2 ABG pO2 ABG HCO3 ABG Base Excess ABG Hemoglobin ABG Oxyhemoglobin ABG Sodium ABG Chloride ABG Glucose Oxyhemoglobin Carboxyhemoglobin Sodium 134 L Potassium Chloride 91.2 L Carbon Dioxide BUN Creatinine 1.8 H Glucose POC Glucose Calcium Ionized Calcium Total Bilirubin AST ALT Total Creatine Kinase Troponin T 0.099 H NT-Pro-B Natriuret Pep Total Protein Albumin LDL Cholesterol Direct HDL Cholesterol Arterial Blood Glucose 04/08/21 04/08/21 04/09/21 13:03 20:28 04:52 WBC 20.9 H Hgb 8.5 L Hct 30.0 L MCV 73 L MCH 21 L MCHC 28 L RDW 23.9 H Seg Neuts % (Manual) 77.0 H Lymphocytes % (Manual) 1.0 L Nucleated RBC % 1.0 H Seg Neutrophils # Man 16.1 H Lymphocytes # (Manual) 0.2 L Monocytes # (Manual) D-Dimer ABG pH POC ABG pCO2 POC ABG pO2 ABG pO2 ABG HCO3 ABG Base Excess ABG Hemoglobin ABG Oxyhemoglobin ABG Sodium ABG Chloride ABG Glucose Oxyhemoglobin Carboxyhemoglobin Sodium Potassium Chloride Carbon Dioxide BUN Creatinine Glucose POC Glucose 115 H Calcium Ionized Calcium Total Bilirubin AST ALT Total Creatine Kinase Troponin T 0.078 H D NT-Pro-B Natriuret Pep Total Protein Albumin LDL Cholesterol Direct HDL Cholesterol Arterial Blood Glucose 04/09/21 04/09/21 04/09/21 04:52 08:46 11:50 WBC Hgb Hct MCV MCH MCHC RDW Seg Neuts % (Manual) Lymphocytes % (Manual) Nucleated RBC % Seg Neutrophils # Man Lymphocytes # (Manual) Monocytes # (Manual) D-Dimer ABG pH POC ABG pCO2 POC ABG pO2 ABG pO2 ABG HCO3 ABG Base Excess ABG Hemoglobin ABG Oxyhemoglobin ABG Sodium ABG Chloride ABG Glucose Oxyhemoglobin Carboxyhemoglobin Sodium 129 L Potassium 5.6 H Chloride 88.6 L Carbon Dioxide BUN 27 H Creatinine 2.4 H Glucose 121 H POC Glucose 139 H 156 H Calcium 7.7 L Ionized Calcium Total Bilirubin AST ALT Total Creatine Kinase Troponin T NT-Pro-B Natriuret Pep Total Protein Albumin LDL Cholesterol Direct HDL Cholesterol Arterial Blood Glucose 04/09/21 04/09/21 04/09/21 15:46 16:58 22:08 WBC Hgb Hct MCV MCH MCHC RDW Seg Neuts % (Manual) Lymphocytes % (Manual) Nucleated RBC % Seg Neutrophils # Man Lymphocytes # (Manual) Monocytes # (Manual) D-Dimer ABG pH POC ABG pCO2 POC ABG pO2 ABG pO2 ABG HCO3 ABG Base Excess ABG Hemoglobin ABG Oxyhemoglobin ABG Sodium ABG Chloride ABG Glucose Oxyhemoglobin Carboxyhemoglobin Sodium 128 L Potassium 5.5 H Chloride 88.1 L Carbon Dioxide BUN 33 H Creatinine 2.7 H Glucose 172 H POC Glucose 187 H 186 H Calcium 7.3 L Ionized Calcium Total Bilirubin AST ALT Total Creatine Kinase Troponin T NT-Pro-B Natriuret Pep Total Protein Albumin LDL Cholesterol Direct HDL Cholesterol Arterial Blood Glucose 04/09/21 04/10/21 04/10/21 23:15 02:20 07:39 WBC Hgb Hct MCV MCH MCHC RDW Seg Neuts % (Manual) Lymphocytes % (Manual) Nucleated RBC % Seg Neutrophils # Man Lymphocytes # (Manual) Monocytes # (Manual) D-Dimer ABG pH POC ABG pCO2 POC ABG pO2 ABG pO2 ABG HCO3 ABG Base Excess ABG Hemoglobin ABG Oxyhemoglobin ABG Sodium ABG Chloride ABG Glucose Oxyhemoglobin Carboxyhemoglobin Sodium 128 L Potassium 5.2 H Chloride 88.6 L Carbon Dioxide BUN 39 H Creatinine 3.1 H Glucose 171 H POC Glucose 168 H Calcium 7.2 L Ionized Calcium 3.6 L Total Bilirubin AST ALT Total Creatine Kinase Troponin T NT-Pro-B Natriuret Pep Total Protein Albumin LDL Cholesterol Direct HDL Cholesterol Arterial Blood Glucose 04/10/21 04/10/21 04/10/21 10:04 11:37 17:18 WBC Hgb Hct MCV MCH MCHC RDW Seg Neuts % (Manual) Lymphocytes % (Manual) Nucleated RBC % Seg Neutrophils # Man Lymphocytes # (Manual) Monocytes # (Manual) D-Dimer ABG pH POC ABG pCO2 POC ABG pO2 ABG pO2 ABG HCO3 ABG Base Excess ABG Hemoglobin ABG Oxyhemoglobin ABG Sodium ABG Chloride ABG Glucose Oxyhemoglobin Carboxyhemoglobin Sodium Potassium Chloride Carbon Dioxide BUN Creatinine Glucose POC Glucose 170 H 152 H Calcium Ionized Calcium Total Bilirubin AST ALT Total Creatine Kinase 1712 H Troponin T NT-Pro-B Natriuret Pep Total Protein Albumin LDL Cholesterol Direct HDL Cholesterol Arterial Blood Glucose 04/10/21 04/10/21 04/11/21 19:38 22:02 05:48 WBC Hgb Hct MCV MCH MCHC RDW Seg Neuts % (Manual) Lymphocytes % (Manual) Nucleated RBC % Seg Neutrophils # Man Lymphocytes # (Manual) Monocytes # (Manual) D-Dimer ABG pH POC ABG pCO2 POC ABG pO2 ABG pO2 ABG HCO3 ABG Base Excess ABG Hemoglobin ABG Oxyhemoglobin ABG Sodium ABG Chloride ABG Glucose Oxyhemoglobin Carboxyhemoglobin Sodium 128 L 124 L Potassium 5.8 H D Chloride 89.6 L 89.4 L Carbon Dioxide BUN 47 H 53 H Creatinine 3.0 H 2.8 H Glucose 165 H 150 H POC Glucose 147 H Calcium 6.9 L 7.2 L Ionized Calcium Total Bilirubin AST ALT Total Creatine Kinase Troponin T NT-Pro-B Natriuret Pep Total Protein Albumin LDL Cholesterol Direct HDL Cholesterol Arterial Blood Glucose 04/11/21 04/11/21 04/11/21 08:48 11:35 19:12 WBC Hgb Hct MCV MCH MCHC RDW Seg Neuts % (Manual) Lymphocytes % (Manual) Nucleated RBC % Seg Neutrophils # Man Lymphocytes # (Manual) Monocytes # (Manual) D-Dimer ABG pH POC ABG pCO2 POC ABG pO2 ABG pO2 ABG HCO3 ABG Base Excess ABG Hemoglobin ABG Oxyhemoglobin ABG Sodium ABG Chloride ABG Glucose Oxyhemoglobin Carboxyhemoglobin Sodium 128 L Potassium Chloride 89.7 L Carbon Dioxide BUN 53 H Creatinine 2.4 H Glucose 159 H POC Glucose 152 H 152 H Calcium 7.1 L Ionized Calcium Total Bilirubin AST ALT Total Creatine Kinase Troponin T NT-Pro-B Natriuret Pep Total Protein Albumin LDL Cholesterol Direct HDL Cholesterol Arterial Blood Glucose 04/11/21 04/12/21 04/12/21 22:03 05:03 07:41 WBC Hgb Hct MCV MCH MCHC RDW Seg Neuts % (Manual) Lymphocytes % (Manual) Nucleated RBC % Seg Neutrophils # Man Lymphocytes # (Manual) Monocytes # (Manual) D-Dimer ABG pH POC ABG pCO2 POC ABG pO2 ABG pO2 ABG HCO3 ABG Base Excess ABG Hemoglobin ABG Oxyhemoglobin ABG Sodium ABG Chloride ABG Glucose Oxyhemoglobin Carboxyhemoglobin Sodium 134 L Potassium Chloride 92.9 L Carbon Dioxide 33 H D BUN 54 H Creatinine 2.4 H Glucose 150 H POC Glucose 152 H 144 H Calcium 7.2 L Ionized Calcium Total Bilirubin AST ALT Total Creatine Kinase Troponin T NT-Pro-B Natriuret Pep Total Protein Albumin LDL Cholesterol Direct HDL Cholesterol Arterial Blood Glucose 04/12/21 04/12/21 04/12/21 11:38 14:11 17:02 WBC 14.7 H Hgb 8.7 L Hct 29.8 L MCV 74 L MCH 22 L MCHC 29 L RDW 24.9 H Seg Neuts % (Manual) 86.0 H Lymphocytes % (Manual) 6.0 L Nucleated RBC % Seg Neutrophils # Man 12.6 H Lymphocytes # (Manual) 0.9 L Monocytes # (Manual) D-Dimer ABG pH POC ABG pCO2 POC ABG pO2 ABG pO2 ABG HCO3 ABG Base Excess ABG Hemoglobin ABG Oxyhemoglobin ABG Sodium ABG Chloride ABG Glucose Oxyhemoglobin Carboxyhemoglobin Sodium Potassium Chloride Carbon Dioxide BUN Creatinine Glucose POC Glucose 151 H 154 H Calcium Ionized Calcium Total Bilirubin AST ALT Total Creatine Kinase Troponin T NT-Pro-B Natriuret Pep Total Protein Albumin LDL Cholesterol Direct HDL Cholesterol Arterial Blood Glucose 04/12/21 04/13/21 04/13/21 23:14 05:03 10:00 WBC Hgb Hct MCV MCH MCHC RDW Seg Neuts % (Manual) Lymphocytes % (Manual) Nucleated RBC % Seg Neutrophils # Man Lymphocytes # (Manual) Monocytes # (Manual) D-Dimer ABG pH 7.150 L* POC ABG pCO2 POC ABG pO2 ABG pO2 91.8 H ABG HCO3 37.2 H ABG Base Excess 7.1 H ABG Hemoglobin 7.1 L ABG Oxyhemoglobin ABG Sodium ABG Chloride ABG Glucose Oxyhemoglobin 93.4 L Carboxyhemoglobin Sodium 134 L Potassium Chloride 91.3 L Carbon Dioxide 33 H BUN 63 H Creatinine 2.2 H Glucose 159 H POC Glucose 151 H Calcium 7.8 L Ionized Calcium Total Bilirubin AST ALT Total Creatine Kinase Troponin T NT-Pro-B Natriuret Pep Total Protein Albumin LDL Cholesterol Direct HDL Cholesterol Arterial Blood Glucose 04/13/21 04/13/21 04/13/21 12:39 16:37 18:40 WBC Hgb Hct MCV MCH MCHC RDW Seg Neuts % (Manual) Lymphocytes % (Manual) Nucleated RBC % Seg Neutrophils # Man Lymphocytes # (Manual) Monocytes # (Manual) D-Dimer ABG pH 7.237 L POC ABG pCO2 POC ABG pO2 ABG pO2 ABG HCO3 36.2 H ABG Base Excess 7.4 H ABG Hemoglobin 7.8 L ABG Oxyhemoglobin ABG Sodium ABG Chloride ABG Glucose Oxyhemoglobin 93.7 L Carboxyhemoglobin Sodium Potassium Chloride Carbon Dioxide BUN Creatinine Glucose POC Glucose 140 H 132 H Calcium Ionized Calcium Total Bilirubin AST ALT Total Creatine Kinase Troponin T NT-Pro-B Natriuret Pep Total Protein Albumin LDL Cholesterol Direct HDL Cholesterol Arterial Blood Glucose 04/13/21 04/14/21 04/14/21 23:55 04:27 04:27 WBC Hgb 8.5 L Hct 29.1 L MCV 72 L MCH 21 L MCHC 29 L RDW 24.9 H Seg Neuts % (Manual) Lymphocytes % (Manual) Nucleated RBC % Seg Neutrophils # Man Lymphocytes # (Manual) Monocytes # (Manual) D-Dimer ABG pH POC ABG pCO2 POC ABG pO2 ABG pO2 ABG HCO3 ABG Base Excess ABG Hemoglobin ABG Oxyhemoglobin ABG Sodium ABG Chloride ABG Glucose Oxyhemoglobin Carboxyhemoglobin Sodium 135 L Potassium Chloride 93.5 L Carbon Dioxide 33 H BUN 68 H Creatinine 1.9 H Glucose 143 H POC Glucose 135 H Calcium 8.1 L Ionized Calcium Total Bilirubin 1.50 H AST 494 H ALT 835 H Total Creatine Kinase Troponin T NT-Pro-B Natriuret Pep Total Protein 9.5 H Albumin 3.1 L LDL Cholesterol Direct HDL Cholesterol Arterial Blood Glucose 04/14/21 04/14/21 04/15/21 12:03 17:24 00:19 WBC Hgb Hct MCV MCH MCHC RDW Seg Neuts % (Manual) Lymphocytes % (Manual) Nucleated RBC % Seg Neutrophils # Man Lymphocytes # (Manual) Monocytes # (Manual) D-Dimer ABG pH 7.291 L POC ABG pCO2 75.5 H POC ABG pO2 76.2 L ABG pO2 ABG HCO3 ABG Base Excess ABG Hemoglobin 9.9 L ABG Oxyhemoglobin 91.0 L ABG Sodium 134.9 L ABG Chloride 93.0 L ABG Glucose 146 H Oxyhemoglobin Carboxyhemoglobin 2.2 H Sodium Potassium Chloride Carbon Dioxide BUN Creatinine Glucose POC Glucose 134 H 136 H Calcium Ionized Calcium Total Bilirubin AST ALT Total Creatine Kinase Troponin T NT-Pro-B Natriuret Pep Total Protein Albumin LDL Cholesterol Direct HDL Cholesterol Arterial Blood Glucose 146 H 04/15/21 04/15/21 04/15/21 04:55 04:55 05:29 WBC Hgb 8.0 L Hct 27.1 L MCV 70 L MCH 21 L MCHC RDW 24.3 H Seg Neuts % (Manual) Lymphocytes % (Manual) Nucleated RBC % Seg Neutrophils # Man Lymphocytes # (Manual) Monocytes # (Manual) D-Dimer ABG pH POC ABG pCO2 POC ABG pO2 ABG pO2 ABG HCO3 ABG Base Excess ABG Hemoglobin ABG Oxyhemoglobin ABG Sodium ABG Chloride ABG Glucose Oxyhemoglobin Carboxyhemoglobin Sodium Potassium Chloride 95.1 L Carbon Dioxide 36 H BUN 63 H Creatinine 1.5 H Glucose 131 H POC Glucose 118 H Calcium 8.3 L Ionized Calcium Total Bilirubin 1.80 H AST 323 H ALT 609 H Total Creatine Kinase Troponin T NT-Pro-B Natriuret Pep Total Protein 9.3 H Albumin 2.9 L LDL Cholesterol Direct HDL Cholesterol Arterial Blood Glucose 04/15/21 04/15/21 04/15/21 11:40 18:30 22:44 WBC Hgb Hct MCV MCH MCHC RDW Seg Neuts % (Manual) Lymphocytes % (Manual) Nucleated RBC % Seg Neutrophils # Man Lymphocytes # (Manual) Monocytes # (Manual) D-Dimer ABG pH POC ABG pCO2 POC ABG pO2 ABG pO2 ABG HCO3 ABG Base Excess ABG Hemoglobin ABG Oxyhemoglobin ABG Sodium ABG Chloride ABG Glucose Oxyhemoglobin Carboxyhemoglobin Sodium Potassium Chloride Carbon Dioxide BUN Creatinine Glucose POC Glucose 139 H 130 H 123 H Calcium Ionized Calcium Total Bilirubin AST ALT Total Creatine Kinase Troponin T NT-Pro-B Natriuret Pep Total Protein Albumin LDL Cholesterol Direct HDL Cholesterol Arterial Blood Glucose 04/16/21 04/16/21 04/16/21 04:53 04:53 07:16 WBC 12.5 H Hgb 8.8 L Hct 30.2 L MCV 74 L MCH 21 L MCHC 29 L RDW 24.5 H Seg Neuts % (Manual) Lymphocytes % (Manual) Nucleated RBC % Seg Neutrophils # Man Lymphocytes # (Manual) Monocytes # (Manual) D-Dimer ABG pH POC ABG pCO2 POC ABG pO2 ABG pO2 ABG HCO3 ABG Base Excess ABG Hemoglobin ABG Oxyhemoglobin ABG Sodium ABG Chloride ABG Glucose Oxyhemoglobin Carboxyhemoglobin Sodium Potassium Chloride 96.9 L Carbon Dioxide 35 H BUN 65 H Creatinine 1.5 H Glucose 142 H POC Glucose 138 H Calcium Ionized Calcium Total Bilirubin 1.50 H AST 251 H ALT 572 H Total Creatine Kinase Troponin T NT-Pro-B Natriuret Pep Total Protein 10.1 H Albumin 3.2 L LDL Cholesterol Direct HDL Cholesterol Arterial Blood Glucose 04/16/21 04/16/21 04/16/21 07:32 11:29 14:42 WBC Hgb Hct MCV MCH MCHC RDW Seg Neuts % (Manual) Lymphocytes % (Manual) Nucleated RBC % Seg Neutrophils # Man Lymphocytes # (Manual) Monocytes # (Manual) D-Dimer ABG pH 7.086 L 7.188 L POC ABG pCO2 142.2 H 99.3 H POC ABG pO2 196.3 H 132.3 H ABG pO2 ABG HCO3 ABG Base Excess ABG Hemoglobin 10.0 L 9.2 L ABG Oxyhemoglobin ABG Sodium ABG Chloride 96.0 L 96.0 L ABG Glucose 147 H 146 H Oxyhemoglobin Carboxyhemoglobin 1.6 H 2.0 H Sodium Potassium Chloride Carbon Dioxide BUN Creatinine Glucose POC Glucose 131 H Calcium Ionized Calcium Total Bilirubin AST ALT Total Creatine Kinase Troponin T NT-Pro-B Natriuret Pep Total Protein Albumin LDL Cholesterol Direct HDL Cholesterol Arterial Blood Glucose 147 H 146 H 04/16/21 04/16/21 04/17/21 17:23 22:34 07:44 WBC Hgb Hct MCV MCH MCHC RDW Seg Neuts % (Manual) Lymphocytes % (Manual) Nucleated RBC % Seg Neutrophils # Man Lymphocytes # (Manual) Monocytes # (Manual) D-Dimer ABG pH POC ABG pCO2 POC ABG pO2 ABG pO2 ABG HCO3 ABG Base Excess ABG Hemoglobin ABG Oxyhemoglobin ABG Sodium ABG Chloride ABG Glucose Oxyhemoglobin Carboxyhemoglobin Sodium Potassium Chloride Carbon Dioxide BUN Creatinine Glucose POC Glucose 117 H 169 H 150 H Calcium Ionized Calcium Total Bilirubin AST ALT Total Creatine Kinase Troponin T NT-Pro-B Natriuret Pep Total Protein Albumin LDL Cholesterol Direct HDL Cholesterol Arterial Blood Glucose 04/17/21 04/17/21 04/17/21 08:55 08:55 09:47 WBC Hgb 8.7 L Hct 29.4 L MCV 74 L MCH 22 L MCHC RDW 24.8 H Seg Neuts % (Manual) Lymphocytes % (Manual) Nucleated RBC % Seg Neutrophils # Man Lymphocytes # (Manual) Monocytes # (Manual) D-Dimer ABG pH 7.234 L POC ABG pCO2 90.5 H POC ABG pO2 139.4 H ABG pO2 ABG HCO3 ABG Base Excess ABG Hemoglobin 9.5 L ABG Oxyhemoglobin ABG Sodium ABG Chloride 97.0 L ABG Glucose 179 H Oxyhemoglobin Carboxyhemoglobin 1.7 H Sodium Potassium Chloride 94.4 L Carbon Dioxide 37 H BUN 68 H Creatinine 1.5 H Glucose 178 H POC Glucose Calcium Ionized Calcium Total Bilirubin 1.60 H AST 172 H ALT 437 H Total Creatine Kinase Troponin T NT-Pro-B Natriuret Pep Total Protein 10.1 H Albumin 3.2 L LDL Cholesterol Direct HDL Cholesterol Arterial Blood Glucose 179 H 04/17/21 04/17/21 04/17/21 11:39 16:03 17:24 WBC Hgb Hct MCV MCH MCHC RDW Seg Neuts % (Manual) Lymphocytes % (Manual) Nucleated RBC % Seg Neutrophils # Man Lymphocytes # (Manual) Monocytes # (Manual) D-Dimer 5410.10 H ABG pH POC ABG pCO2 POC ABG pO2 ABG pO2 ABG HCO3 ABG Base Excess ABG Hemoglobin ABG Oxyhemoglobin ABG Sodium ABG Chloride ABG Glucose Oxyhemoglobin Carboxyhemoglobin Sodium Potassium Chloride Carbon Dioxide BUN Creatinine Glucose POC Glucose 161 H 130 H Calcium Ionized Calcium Total Bilirubin AST ALT Total Creatine Kinase Troponin T NT-Pro-B Natriuret Pep Total Protein Albumin LDL Cholesterol Direct HDL Cholesterol Arterial Blood Glucose 04/17/21 04/18/21 04/18/21 21:52 10:20 11:58 WBC Hgb Hct MCV MCH MCHC RDW Seg Neuts % (Manual) Lymphocytes % (Manual) Nucleated RBC % Seg Neutrophils # Man Lymphocytes # (Manual) Monocytes # (Manual) D-Dimer ABG pH POC ABG pCO2 POC ABG pO2 ABG pO2 ABG HCO3 ABG Base Excess ABG Hemoglobin ABG Oxyhemoglobin ABG Sodium ABG Chloride ABG Glucose Oxyhemoglobin Carboxyhemoglobin Sodium 146 H D Potassium Chloride Carbon Dioxide BUN 75 H Creatinine 1.6 H Glucose 158 H POC Glucose 150 H 143 H Calcium Ionized Calcium Total Bilirubin AST ALT Total Creatine Kinase Troponin T NT-Pro-B Natriuret Pep Total Protein Albumin LDL Cholesterol Direct HDL Cholesterol Arterial Blood Glucose Allied health notes reviewed: nursing
--- NOTE | 2021-04-18 15:04 | Progress Note ---
Subjective Date of service: 04/18/21 Principal diagnosis: Ac hypoxemic and hypercapnic resp failure; AE-CHF; Morbid obesity; CLAUDIA/OHS Interval history: Assessment Acute kidney injury, unknown baseline. Renal ultrasound notes poor visualization due to body habitus. Hypernatremia Hyperkalemia Hypocalcemia Morbid obesity Recommendations hold diuresis today due to worsening hypernatremia stopped Na tabls cr is stable today echo noted, likely diastolic disease rec lasix 40mg po bid, when restart, no need for high dose iv Maintain MAP more than 65 Hold SUNG/ARB at this time Hold diuretics given soft pressures Renally dose medications Avoid nephrotoxins Renal diet will follow lytes prn Subjective: Principal diagnosis: Acute on chronic renal insufficiency Interval history: Patient was seen for her renal issues Nursing, interdisciplinary and consult notes were reviewed Vitals, input and output, medications and labs were reviewed Remains on NC Objective - Exam Narrative Exam: General: Morbid obesity HEENT: Oral mucosa moist Neck: Supple, no JVD Chest: Clear to auscultation bilaterally Heart: RRR, S1 and S2, no pericardial rub Abdomen: Soft, nontender, no renal bruit Extremity: No peripheral cyanosis, edema Neurological: Awake and alert Dermatology: Unable to assess Psych: Calm and cooperative Musculoskeletal: No joint effusion Objective - Vital Signs Vital signs: Vital Signs - 12hr 04/18/21 04/18/21 04/18/21 03:31 04:01 04:30 Temperature Pulse Rate 89 92 H Respiratory 12 15 Rate Blood Pressure 132/88 117/100 131/99 O2 Sat by Pulse 76 L 98 99 Oximetry 04/18/21 04/18/21 04/18/21 04:42 04:50 05:01 Temperature 98.2 F Pulse Rate 92 H 100 H Respiratory 26 H 22 Rate Blood Pressure 131/99 130/112 O2 Sat by Pulse 99 86 Oximetry 04/18/21 04/18/21 04/18/21 05:20 05:31 06:00 Temperature Pulse Rate 90 95 H 93 H Respiratory 20 17 22 Rate Blood Pressure 131/99 146/78 O2 Sat by Pulse 98 98 98 Oximetry 04/18/21 04/18/21 04/18/21 06:03 06:31 07:00 Temperature Pulse Rate 95 H 95 H Respiratory 23 Rate Blood Pressure 179/115 148/90 O2 Sat by Pulse 99 Oximetry 04/18/21 04/18/21 04/18/21 08:00 08:36 10:33 Temperature 98.4 F Pulse Rate 93 H Respiratory 27 H Rate Blood Pressure 154/75 O2 Sat by Pulse 96 100 Oximetry 04/18/21 04/18/21 04/18/21 11:11 12:00 14:58 Temperature 97.8 F Pulse Rate 89 92 H Respiratory 30 H 27 H Rate Blood Pressure O2 Sat by Pulse 90 100 Oximetry - Lab 04/17/21 08:55 04/18/21 10:20 Most recent lab results ABG pH 7.234 (7.320-7.450) L 04/17/21 09:47 ABG pCO2 86.9 mm Hg 04/13/21 18:40 ABG pO2 81.8 mm Hg (80.0-90.0) 04/13/21 18:40 ABG HCO3 36.2 mmol/L (20.0-26.0) H 04/13/21 18:40 ABG O2 Saturation 99.2 (0-100) 04/17/21 09:47 Calcium 9.3 mg/dL (8.4-10.2) 04/18/21 10:20 Urine Sodium 16 mmol/L 04/09/21 18:46 Medications & Allergies - Medications Allergies/Adverse Reactions: Allergies No Known Allergies Allergy (Unverified 01/27/17 11:17) Home Medications: Home Medications Medication Instructions Recorded Confirmed Last Taken Type Acetaminophen [Acetaminophen TAB] 325 mg PO Q4H PRN #30 tablet 06/30/17 08/08/20 Unknown Rx ALBUTEROL NEB's [Proventil 0.083% 2.5 mg IH Q3HRT PRN #30 day 08/10/20 Unknown Rx NEBS] Albuterol Mdi (or & Nicu Only) 2 puff IH QID PRN #1 inhalation 08/10/20 Unknown Rx [ProAir HFA Inhaler] Azithromycin [Zithromax Z-BIN] 0 mg PO DAILY #1 tab 08/10/20 Unknown Rx Benzonatate [Tessalon Perles] 100 mg PO Q8HR #15 capsule 08/10/20 Unknown Rx Famotidine [Pepcid] 20 mg PO BID #14 tablet 08/10/20 Unknown Rx Ipratropium/Albuterol Sulfate 1 ampul IH TIDRT #30 day 08/10/20 Unknown Rx [DUONEB *Not for PRN Use*] hydroCHLOROthiazide [HCTZ] 25 mg PO QDAY tablet 08/10/20 Unknown Rx hydroCHLOROthiazide [HCTZ] 25 mg PO QDAY #30 tablet 08/10/20 Unknown Rx methylPREDNISolone [Medrol 4MG 4 mg PO DAILY #1 tab.ds.pk 08/10/20 Unknown Rx DOSEPAK (21 tabs)] Active Medications: Generic Name Dose Route Start Last Admin Trade Name Freq PRN Reason Stop Dose Admin Acetaminophen 650 mg 04/08/21 03:00 04/17/21 06:42 Acetaminophen 325 Mg Tab PO 650 mg Q4H PRN Administration Pain MILD(1-3)/Fever >100.5/BROWN Albuterol 2.5 mg 04/08/21 03:00 Albuterol 2.5 Mg/3 Ml Nebu IH Q4HRT PRN Shortness Of Breath Albuterol/Ipratropium 1 ampul 04/08/21 08:00 04/18/21 08:47 Ipratropium/Albuterol Sulfate 3 Ml Ampul.Neb IH 1 ampul TIDRT EKATERINA Administration Aspirin 325 mg 04/09/21 10:00 04/18/21 10:06 Aspirin Ec 325 Mg Tab PO 325 mg QDAY EKATERINA Administration Atorvastatin Calcium 40 mg 04/08/21 22:00 04/18/21 03:50 Atorvastatin 40 Mg Tab PO 40 mg QHS EKATERINA Administration Benzonatate 100 mg 04/08/21 06:00 04/18/21 14:34 Benzonatate 100 Mg Cap PO 100 mg Q8HR EKATERINA Administration Furosemide 40 mg 04/16/21 18:00 04/18/21 06:25 Furosemide 40 Mg/4 Ml Inj IV 40 mg 0600,1800 EKATERINA Administration Guaifenesin 200 mg 04/12/21 14:47 04/17/21 06:43 Guaifenesin 100 Mg/5 Ml Oral Liqd PO 200 mg Q4H PRN Administration Cough Heparin Sodium (Porcine) 5,000 unit 04/18/21 14:00 04/18/21 14:35 Heparin 5,000 Unit/1 Ml Vial SUB-Q 5,000 unit Q8HR EKATERINA Administration Methylprednisolone Sodium Succinate 20 mg 04/16/21 10:00 04/18/21 10:06 Methylprednisolone Sod Succinate 40 Mg/1 Ml Inj IV 20 mg Q12HR EKATERINA Administration Nitroglycerin 0.4 mg 04/08/21 03:00 Nitroglycerin 0.4 Mg Tab Subl SL Q5M PRN Chest Pain Nystatin 1 applic 04/08/21 18:00 04/18/21 10:06 Nystatin Powder 15 Gm TP 1 applic BID EKATERINA Administration Ondansetron HCl 4 mg 04/08/21 03:00 04/15/21 23:51 Ondansetron 4 Mg/2 Ml Inj IV 4 mg Q8H PRN Administration Nausea And Vomiting Oxycodone/Acetaminophen 1 tab 04/08/21 03:00 04/17/21 21:19 Oxycodone /Acetaminophen 5-325mg Tab PO 1 tab Q6H PRN Administration Pain, Moderate (4-6) Pantoprazole Sodium 40 mg 04/16/21 10:00 04/18/21 10:06 Pantoprazole 40 Mg Inj IV 40 mg QDAY EKATERINA Administration Sodium Chloride 10 ml 04/08/21 10:00 04/18/21 10:07 Sodium Chloride 0.9% 10 Ml Flush Syringe IV 10 ml BID EKATERINA Administration Sodium Chloride 10 ml 04/08/21 03:00 Sodium Chloride 0.9% 10 Ml Flush Syringe IV PRN PRN LINE FLUSH Tramadol HCl 50 mg 04/08/21 03:00 Tramadol 50 Mg Tab PO Q6H PRN Pain, Moderate (4-6)
--- NOTE | 2021-04-18 16:20 | Vascular Lab Report ---
DUPLEX DOPPLER LOWER EXTREMITY VEINS, BILATERAL INDICATION / CLINICAL INFORMATION: swelling; pain. TECHNIQUE: Duplex doppler imaging was performed through the veins of both lower extremities using jaleel ous compression and other maneuvers. COMPARISON: None available. FINDINGS: RIGHT COMMON FEMORAL VEIN: Negative. RIGHT FEMORAL VEIN: Negative. RIGHT POPLITEAL VEIN: Negative. RIGHT CALF VEINS: Negative. LEFT COMMON FEMORAL VEIN: Negative. LEFT FEMORAL VEIN: Negative. LEFT POPLITEAL VEIN: Negative. LEFT CALF VEINS: Negative. ADDITIONAL FINDINGS: None. IMPRESSION: 1. No sonographic evidence for DVT in either lower extremity. Signer Name: Soy Call DO Signed: 04/18/2021 4:15 PM Workstation Name: [id number]
--- NOTE | 2021-04-18 16:26 | Event Note ---
Date: 04/18/21 Patient delirious and pulling off BIPAP mask received some prn Ativan overnight OHS and hypoventiulation also a barrier to liberation from NIV - get sitter for night time BIPAP - stop all benzodiasepines - Schedule Seroquel 75 mg p.o. qhs re: delirium / agitation - schedule BIPAP qhs - venti-mask during the day - discussed care plan with her mother who wants intubation as a last resort
[2021-04-18 17:37] LABS: Hematocrit 27.7 % (30.3-42.9); Hemoglobin 8.3 gm/dl (10.1-14.3)
[2021-04-18 17:42] LABS: INR 1.51 (0.87-1.13); Partial Thromboplastin Time 25.2 Sec. (24.2-36.6)
[2021-04-18] MEDS: QUEtiapine 25 MG TAB PO SCH (21:06)
[2021-04-19 05:01] LABS: Mean Corpuscular HGB Conc 30 % (30-34); Mean Corpuscular Volume 73 fl (79-97); Platelet Count 224 K/mm3 (140-440); Red Blood Count 3.79 M/mm3 (3.65-5.03)
[2021-04-19 05:17] LABS: Calcium 9.3 mg/dL (8.4-10.2)
[2021-04-19 05:25] LABS: Hematocrit 27.5 % (30.3-42.9); Hemoglobin 8.1 gm/dl (10.1-14.3)
[2021-04-19 05:26] LABS: Red Cell Distribution Width 25.4 % (13.2-15.2)
[2021-04-19] MEDS: HEPARIN 5,000 UNIT/1 ML VIAL SUB-Q SCH ×3 (06:30→21:18)
[2021-04-19] MEDS: BENZONATATE 100 MG CAP PO SCH ×3 (06:31→21:18)
[2021-04-19] MEDS: IPRATROPIUM/ALBUTEROL SULFATE 3 ML AMPUL.NEB IH SCH ×3 (09:04→20:18)
--- NOTE | 2021-04-19 09:28 | Progress Note ---
Assessment and Plan Assessment and plan: (1) Non-ST elevation MT (NSTEMI) type II Procardia Current Visit: Yes Status: Acute Plan to address problem: Admit the patient to the medical telemetry. Aspirin 325 mg p.o. daily. Lipitor 40 mg p.o. daily. Nitroglycerin as needed. We do the serial cardiac enzyme. We also consult cardiology for evaluation and order echocardiogram. (2) Acute exacerbation of CHF (congestive heart failure) Current Visit: Yes Status: Acute Plan to address problem: Fluid restriction. Maintain input output. Lasix 40 mg IV every 12 hours. Oxygen via nasal cannula 3 L/min. DuoNeb by nebulizer every 4 hours. Echocardiogram. Cardiology consult (3) hypothyroidism -new diagnosis (4) COPD (chronic obstructive pulmonary disease) Current Visit: Yes Status: Acute Plan to address problem: Oxygen by nasal cannula 3 L/min. DuoNeb via nebulizer every 4 hours. Albuterol via nebulizer every 4 hours as needed. Super (5) Morbid obesity Current Visit: Yes Status: Acute Plan to address problem: We counseled regarding weight reduction. Outpatient follow-up with bariatric surgeon (6) Hyperglycemia Current Visit: Yes Status: Acute Plan to address problem: We will give 1 ampoule of D50. We will put the patient on cardiac diet. We will monitor the blood glucose closely (7) acute kidney injury with vasomotor nephropathy (8) Lymphedema of the abdominal wall (9)Anemia of chronic disease (10)Possible passive congestive hepatic failure with underlying NAFLD (11) hypertension Current Visit: Yes Status: Acute Plan to address problem: We will continue the home medication. Hydralazine 10 mg IV every 6 hours as needed. We will monitor the blood pressure closely (12) DVT prophylaxis Current Visit: No Status: Acute Plan to address problem: Heparin 5000 units subcu every 8 hours for DVT prophylaxis. Pepcid 20 mg p.o. twice daily for GI prophylaxis. Patient is a full code 04/09 -Patient is on heparin drip for non-STEMI, cardiology is following. -Patient is off Lasix and SUNG inhibitors because of GILBERTO. -Kidney function is worsening overnight and I put a consult for nephrology. -Patient is hypotensive and blood pressure from this morning was 101/41. We will continue to monitor. And if it is dropping we we will give him fluid. -Echo was done and EF of 50 to 55%. Diastolic dysfunction is indeterminate. Management per cardiology -Patient has COPD continues on dexamethasone, nebulizer treatment as needed. -Patient has hyponatremia and hyperkalemia. I give the patient Kayexalate. Monitor electrolytes. Will follow nephrology for additional recommendation. 04/10 -Renal function is worsening, nephrology is following -Blood pressure is better today -Hyperkalemia; I added Kayexalate -Morbid obesity 04/11 -Slight improvement in creatinine. Hyponatremia worsened. Nephrology is following and put the patient back on Lasix. -Blood PRESSURE IS BETTER today -Potassium this morning was 5.8, I ordered 60 g of Kayexalate -Morbidly obese -Obesity hypoventilation syndrome 04/12 -Creatinine is improving and this morning was 2.4 -Hyponatremia improved this morning was 134. Patient is on Lasix -Blood pressure is better -Patient is on 10 L of oxygen; worsened -Morbidly obese, CLAUDIA 04/13: Follow ordered ultrasound of abdomen, per Physician unable to get CT. I ordered an ABG due to my concern about her breathing pattern this morning, patient may benefit from. Will try to establish if patient has a primary pulmonary doctor. ABG is showing consistent with Respiratory Acidosis. Will place on BIPAP now. May need to transfer to IMCU for closer monitoring. Patient likely with Obesity Hypoventilation syndrome. cardiology work up, ongoing. RENAL SHOWING SOME IMPROVEMENT Guarded prognosis 04/14: Patient seen and examined today identified some lesion under the pannus will obtain wound care and wound surgeon evaluation. Nephrology input noted continue diuresis and stop the sodium tabs creatinine is stable. I did discuss with the family and updated them. We will continue to hold SUNG and ARB and if pressures continue to drop may need to hold diuresis also despite as written above. Monitor labs including H&H. She is more awake review of ABG shows improving CO2. Will discuss with case management as patient may need BiPAP on discharge home. I also updated the family 04/15: Patient showing some clinical improvement. Liver enzymes is showing mild improvement although bilirubin increased slightly. GI input noted and as discussed by his notes below "Abnormal liver enzymes in hepatocellular pattern. broad ddx and likely multifactorial causes including NAFLD, congestive hepatopathy, possibly DILI. will check viral hep serologies. US with limited views, possible coarsening of the liver" Patient also evaluated by surgery noted with the lymphedema of abdominal wall and open wound of the abdominal wall without penetration into the abdominal cavity with recommendation to pack the wounds daily with mesalt. Need to maintain dry environment discussed with nursing staff. Elevate the pannus and optimize nutrition for which I will get nutritional consult. No surgical intervention at this time. Patient is bedbound when I asked when last she ambulated she said while "I guess he has not worked" but it has been a while. Unfortunately the LTAC center unwilling to accept the patient will discuss with pulmonary and with case management about obtaining BiPAP for this patient and possible SNF referral. 04/16: Patient this morning and was noted significantly lethargic and unresponsive respiratory and a code to be called. The patient resuscitated without any invasive procedure. ABG was obtained showed a CO2 of 142. Despite using BiPAP for some time through the night, sure how long she used it for. I have discontinued all IV opioids and recommend no IV opioids for this patient at this time. I also discontinued p.o. medications as an essential medication and change to IV. We will repeat an ABG in an hour to see if there is some improvement. Patient remains at high risk for possible intubation. Clinical condition is guarded 04/17: Patient remains on BiPAP this am, has some intermittent twitching, will check EEG, not likely seizure, but will monitor. Continue current management , check Albumin and Pre-Albumin level. Remains critically ill. Liver status showing improvement. 04/18: Patient with elevated D-dimer unfortunately size precludes being able to have a CTA chest done here to rule out pulmonary embolism. Doppler of lower extremities is pending. We will continue subcu anticoagulation with heparin at this time. Until Doppler is resolved. Patient is not hypoxic so doubt pulmonary embolism at this time. Her problem remains hypercapnia. I did take time to go over her history while she has been around hospital in the past and noticed a remarkable increase in her BMI from the last 2 years. Discussed with the efficiency manager will agree to check thyroid function test. Critical care time 35- minute 3: Patient with profound hypothyroidism, while she does not appear to be with myxedema coma at this time. Will initiate levothyroxine as I believe that this will make profound impact her management at this time, continue BiPAP continue current management. Seroquel was added by pulmonary for delirium and agitation management, Ventimask during the day and BiPAP at night History Interval history: Patient seen and examined, remains on BiPAP, no further twitching but delirious intermittently. Per nursing staff no clinical change Hospitalist Physical - Physical exam Narrative exam: VITAL SIGNS: Reviewed. GENERAL: The patient is morbidly obese, lethargic on BiPAP Placed she is waking up some, Vital signs as documented. HEAD: No signs of head trauma. EYES: Pupils are equal. Extraocular motions intact. EARS: Hearing grossly intact. MOUTH: Oropharynx is normal. NECK: No adenopathy, no JVD. CHEST: Chest with diminished breath sounds bilaterally. No wheezes, rales, or rhonchi. CARDIAC: Regular rate and rhythm. S1 and S2, without murmurs, gallops, or rubs. VASCULAR: No Edema. Peripheral pulses normal and equal in all extremities. ABDOMEN: enlarged pannus, lymphedema with thickened skin, non tender and non distended. No rebound or guarding, and no masses palpated. Bowel Sounds normal. MUSCULOSKELETAL: Good range of motion of all major joints. Extremities without clubbing, cyanosis or edema. NEUROLOGIC EXAM: Lethargic but oriented x3 no focal sensory or strength deficits. Speech normal. Follows some commands. PSYCHIATRIC: Mood normal. SKIN: detail exam as documented in skin assessment - Constitutional Vitals: Temp Pulse Resp BP Pulse Ox 97.7 F 93 H 19 133/81 99 04/19/21 07:03 04/19/21 09:00 04/19/21 09:00 04/19/21 09:00 04/19/21 09:00 General appearance: Present: no acute distress HEART Score - HEART Score Troponin: Troponin T 0.078 ng/mL (0.00-0.029) H D 04/08/21 13:03 Results - Labs CBC & Chem 7: 04/19/21 04:40 04/19/21 04:40 Labs: Laboratory Last Values WBC 8.1 K/mm3 (4.5-11.0) 04/19/21 04:40 RBC 3.79 M/mm3 (3.65-5.03) 04/19/21 04:40 Hgb 8.1 gm/dl (10.1-14.3) L 04/19/21 04:40 Hct 27.5 % (30.3-42.9) L 04/19/21 04:40 MCV 73 fl (79-97) L 04/19/21 04:40 MCH 22 pg (28-32) L 04/19/21 04:40 MCHC 30 % (30-34) 04/19/21 04:40 RDW 25.4 % (13.2-15.2) H 04/19/21 04:40 Plt Count 224 K/mm3 (140-440) 04/19/21 04:40 Add Manual Diff Complete 04/12/21 14:11 Total Counted 100 04/12/21 14:11 Seg Neuts % (Manual) 86.0 % (40.0-70.0) H 04/12/21 14:11 Band Neutrophils % 1.0 % 04/12/21 14:11 Lymphocytes % (Manual) 6.0 % (13.4-35.0) L 04/12/21 14:11 Reactive Lymphs % (Man) 1.0 % 04/12/21 14:11 Monocytes % (Manual) 4.0 % (0.0-7.3) 04/12/21 14:11 Metamyelocytes % 2.0 % 04/12/21 14:11 Myelocytes % 2.0 % 04/08/21 04:03 Nucleated RBC % Not Reportable 04/12/21 14:11 Seg Neutrophils # Man 12.6 K/mm3 (1.8-7.7) H 04/12/21 14:11 Band Neutrophils # 0.1 K/mm3 04/12/21 14:11 Lymphocytes # (Manual) 0.9 K/mm3 (1.2-5.4) L 04/12/21 14:11 Abs React Lymphs (Man) 0.1 K/mm3 04/12/21 14:11 Monocytes # (Manual) 0.6 K/mm3 (0.0-0.8) 04/12/21 14:11 Eosinophils # (Manual) 0.0 K/mm3 (0.0-0.4) 04/12/21 14:11 Basophils # (Manual) 0.0 K/mm3 (0.0-0.1) 04/12/21 14:11 Metamyelocytes # 0.3 K/mm3 04/12/21 14:11 Myelocytes # 0.0 K/mm3 04/12/21 14:11 Promyelocytes # 0.0 K/mm3 04/12/21 14:11 Blast Cells # 0.0 K/mm3 04/12/21 14:11 WBC Morphology Not Reportable 04/12/21 14:11 WBC Morphology TNR 04/12/21 14:11 Hypersegmented Neuts Not Reportable 04/12/21 14:11 Hyposegmented Neuts Not Reportable 04/12/21 14:11 Hypogranular Neuts Not Reportable 04/12/21 14:11 Smudge Cells Not Reportable 04/12/21 14:11 Toxic Granulation Not Reportable 04/12/21 14:11 Toxic Vacuolation Not Reportable 04/12/21 14:11 Dohle Bodies Not Reportable 04/12/21 14:11 Pelger-Huet Anomaly Not Reportable 04/12/21 14:11 Ana Cristina Rods Not Reportable 04/12/21 14:11 Platelet Estimate Consistent w auto 04/12/21 14:11 Clumped Platelets Not Reportable 04/12/21 14:11 Plt Clumps, EDTA Not Reportable 04/12/21 14:11 Large Platelets Not Reportable 04/12/21 14:11 Giant Platelets Not Reportable 04/12/21 14:11 Platelet Satelliting Not Reportable 04/12/21 14:11 Plt Morphology Comment Not Reportable 04/12/21 14:11 RBC Morphology Not Reportable 04/12/21 14:11 Dimorphic RBCs Not Reportable 04/12/21 14:11 Polychromasia Few 04/12/21 14:11 Hypochromasia 1+ 04/12/21 14:11 Poikilocytosis Not Reportable 04/12/21 14:11 Anisocytosis Not Reportable 04/12/21 14:11 Microcytosis Not Reportable 04/12/21 14:11 Macrocytosis Not Reportable 04/12/21 14:11 Spherocytes Not Reportable 04/12/21 14:11 Pappenheimer Bodies Not Reportable 04/12/21 14:11 Sickle Cells Not Reportable 04/12/21 14:11 Target Cells 1+ 04/12/21 14:11 Tear Drop Cells Few 04/12/21 14:11 Ovalocytes Not Reportable 04/12/21 14:11 Helmet Cells Not Reportable 04/12/21 14:11 Saravia-Bolton Bodies Not Reportable 04/12/21 14:11 Bellamy Rings Not Reportable 04/12/21 14:11 Sara Cells Not Reportable 04/12/21 14:11 Bite Cells Not Reportable 04/12/21 14:11 Crenated Cell Not Reportable 04/12/21 14:11 Elliptocytes Not Reportable 04/12/21 14:11 Acanthocytes (Spur) Not Reportable 04/12/21 14:11 Rouleaux Not Reportable 04/12/21 14:11 Hemoglobin C Crystals Not Reportable 04/12/21 14:11 Schistocytes Not Reportable 04/12/21 14:11 Malaria parasites Not Reportable 04/12/21 14:11 Tyshawn Bodies Not Reportable 04/12/21 14:11 Hem Pathologist Commnt No 04/12/21 14:11 PT 18.7 Sec. (12.2-14.9) H 04/18/21 16:55 INR 1.51 (0.87-1.13) H 04/18/21 16:55 APTT 25.2 Sec. (24.2-36.6) 04/18/21 16:55 D-Dimer 5410.10 ng/mlDDU (0-234) H 04/17/21 16:03 ABG pH 7.382 (7.320-7.450) 04/18/21 14:19 POC ABG pCO2 67.4 mmHg (32.0-48.0) H 04/18/21 14:19 ABG pCO2 86.9 mm Hg 04/13/21 18:40 POC ABG pO2 150.6 mmHg (83-108) H 04/18/21 14:19 ABG pO2 81.8 mm Hg (80.0-90.0) 04/13/21 18:40 POC ABG HCO3 39.2 04/18/21 14:19 ABG HCO3 36.2 mmol/L (20.0-26.0) H 04/13/21 18:40 ABG O2 Saturation 99.4 (0-100) 04/18/21 14:19 ABG O2 Content 10.4 (0.0-44) 04/13/21 18:40 POC ABG Base Excess 12.2 04/18/21 14:19 ABG Base Excess 7.4 mmol/L (-2.0-3.0) H 04/13/21 18:40 ABG Hemoglobin 9.3 (12.0-17.5) L 04/18/21 14:19 ABG Oxyhemoglobin 97.5 (94-98) 04/18/21 14:19 ABG Carboxyhemoglobin 1.9 % (0.0-5.0) 04/13/21 18:40 ABG Methemoglobin 0.3 (0.0-1.5) 04/18/21 14:19 ABG Sodium 143.0 mmol/L (136.0-145.0) 04/18/21 14:19 ABG Potassium 4.2 mmol/L (3.40-4.50) 04/18/21 14:19 ABG Chloride 98.0 mmol/L (98-107) 04/18/21 14:19 ABG Glucose 162 mg/dL (65-95) H 04/18/21 14:19 Oxyhemoglobin 93.7 % (95.0-99.0) L 04/13/21 18:40 Carboxyhemoglobin 1.6 (0.5-1.5) H 04/18/21 14:19 FiO2 30 % 04/13/21 18:40 FiO2 % 35.0 04/18/21 14:19 Sodium 144 mmol/L (137-145) 04/19/21 04:40 Potassium 4.8 mmol/L (3.6-5.0) 04/19/21 04:40 Chloride 98.1 mmol/L (98-107) 04/19/21 04:40 Carbon Dioxide 37 mmol/L (22-30) H D 04/19/21 04:40 Anion Gap 14 mmol/L 04/19/21 04:40 BUN 76 mg/dL (7-17) H 04/19/21 04:40 Creatinine 1.6 mg/dL (0.6-1.2) H 04/19/21 04:40 Estimated GFR 45 ml/min 04/19/21 04:40 BUN/Creatinine Ratio 48 % 04/19/21 04:40 Glucose 173 mg/dL (65-100) H 04/19/21 04:40 POC Glucose 157 mg/dL (70-105) H 04/18/21 22:19 Osmolality 301 Mosm/kg 04/09/21 23:15 Calcium 9.3 mg/dL (8.4-10.2) 04/19/21 04:40 Ionized Calcium 3.6 mg/dL (4.8-5.6) L 04/09/21 23:15 Total Bilirubin 1.60 mg/dL (0.1-1.2) H 04/17/21 08:55 AST 172 units/L (5-40) H 04/17/21 08:55 ALT 437 units/L (7-56) H 04/17/21 08:55 Alkaline Phosphatase 92 units/L (35-129) 04/17/21 08:55 Total Creatine Kinase 1712 units/L (30-135) H 04/10/21 10:04 Troponin T 0.078 ng/mL (0.00-0.029) H D 04/08/21 13:03 NT-Pro-B Natriuret Pep 7573 pg/mL (0-450) H 04/07/21 22:04 Total Protein 10.1 g/dL (6.3-8.2) H 04/17/21 08:55 Albumin 3.2 g/dL (3.9-5) L 04/17/21 08:55 Albumin/Globulin Ratio 0.5 % 04/17/21 08:55 Triglycerides 105 mg/dL (2-149) 04/07/21 22:04 Cholesterol 85 mg/dL (50-199) 04/07/21 22:04 LDL Cholesterol Direct 47 mg/dL (50-130) L 04/07/21 22:04 HDL Cholesterol 25 mg/dL (40-59) L 04/07/21 22:04 Cholesterol/HDL Ratio 3.40 % 04/07/21 22:04 TSH 6.140 mlU/mL (0.270-4.200) H 04/18/21 19:55 Free T4 0.67 ng/dL (0.76-1.46) L 04/18/21 19:55 Total Cortisol 41.3 mcg/dL () 04/10/21 10:04 Arterial Blood Glucose 162 mg/dL (65-95) H 04/18/21 14:19 Arterial Blood Ionized Calcium 4.6 mg/dL (4.6-5.3) 04/16/21 07:32 Urine Osmolality 157 Mosm/kg 04/09/21 18:46 Urine Sodium 16 mmol/L 04/09/21 18:46 Coronavirus (PCR) Negative (Negative) 04/14/21 Unknown Hepatitis A IgM Ab Non-reactive (NonReactive) 04/14/21 18:45 Hep Bs Antigen Nonreactive (Negative) 04/14/21 18:45 Hepatitis C Antibody Non-reactive (NonReactive) 04/14/21 18:45 Zambrano/IV: Voiding Method Indwelling Catheter Active Medications - Current Medications Current Medications: Generic Name Dose Route Start Last Admin Trade Name Freq PRN Reason Stop Dose Admin Acetaminophen 650 mg 04/08/21 03:00 04/17/21 06:42 Acetaminophen 325 Mg Tab PO 650 mg Q4H PRN Administration Pain MILD(1-3)/Fever >100.5/BROWN Albuterol 2.5 mg 04/08/21 03:00 Albuterol 2.5 Mg/3 Ml Nebu IH Q4HRT PRN Shortness Of Breath Albuterol/Ipratropium 1 ampul 04/08/21 08:00 04/19/21 09:04 Ipratropium/Albuterol Sulfate 3 Ml Ampul.Neb IH 1 ampul TIDRT EKATERINA Administration Aspirin 325 mg 04/09/21 10:00 04/18/21 10:06 Aspirin Ec 325 Mg Tab PO 325 mg QDAY EKATERINA Administration Atorvastatin Calcium 40 mg 04/08/21 22:00 04/18/21 21:06 Atorvastatin 40 Mg Tab PO 40 mg QHS EKATERINA Administration Benzonatate 100 mg 04/08/21 06:00 04/19/21 06:31 Benzonatate 100 Mg Cap PO Not Given Q8HR EKATERINA Guaifenesin 200 mg 04/12/21 14:47 04/17/21 06:43 Guaifenesin 100 Mg/5 Ml Oral Liqd PO 200 mg Q4H PRN Administration Cough Haloperidol Lactate 5 mg 04/18/21 16:27 Haloperidol Lactate 5 Mg/1 Ml Inj IV Q6H PRN Agitation Heparin Sodium (Porcine) 5,000 unit 04/18/21 14:00 04/19/21 06:30 Heparin 5,000 Unit/1 Ml Vial SUB-Q 5,000 unit Q8HR EKATERINA Administration Methylprednisolone Sodium Succinate 20 mg 04/16/21 10:00 04/18/21 21:06 Methylprednisolone Sod Succinate 40 Mg/1 Ml Inj IV 20 mg Q12HR EKATERINA Administration Nitroglycerin 0.4 mg 04/08/21 03:00 Nitroglycerin 0.4 Mg Tab Subl SL Q5M PRN Chest Pain Nystatin 1 applic 04/08/21 18:00 04/18/21 21:12 Nystatin Powder 15 Gm TP 1 applic BID EKATERINA Administration Ondansetron HCl 4 mg 04/08/21 03:00 04/15/21 23:51 Ondansetron 4 Mg/2 Ml Inj IV 4 mg Q8H PRN Administration Nausea And Vomiting Oxycodone/Acetaminophen 1 tab 04/08/21 03:00 04/17/21 21:19 Oxycodone /Acetaminophen 5-325mg Tab PO 1 tab Q6H PRN Administration Pain, Moderate (4-6) Pantoprazole Sodium 40 mg 04/16/21 10:00 04/18/21 10:06 Pantoprazole 40 Mg Inj IV 40 mg QDAY EKATERINA Administration Quetiapine Fumarate 75 mg 04/18/21 22:00 04/18/21 21:06 Quetiapine 25 Mg Tab PO 75 mg QHS EKATERINA Administration Sodium Chloride 10 ml 04/08/21 10:00 04/18/21 21:12 Sodium Chloride 0.9% 10 Ml Flush Syringe IV 10 ml BID EKATERINA Administration Sodium Chloride 10 ml 04/08/21 03:00 Sodium Chloride 0.9% 10 Ml Flush Syringe IV PRN PRN LINE FLUSH Tramadol HCl 50 mg 04/08/21 03:00 Tramadol 50 Mg Tab PO Q6H PRN Pain, Moderate (4-6) Nutrition/Malnutrition Assess - Dietary Evaluation Nutrition/Malnutrition Findings: Nutrition Notes Start: 04/08/21 14:21 Freq: Status: Active Protocol: Document 04/13/21 17:08 GB (Rec: 04/13/21 17:14 GB [id number]) Nutrition Notes Initial or Follow up Reassessment Current Diagnosis Hypertension Other Pertinent Diagnosis Dyspnea, respiratory distress, morbid obesity Current Diet Regular Labs/Tests 04/13: Na 134, BUN 63, creatinine 2.2, glucose 159, Ca 7.8 Pertinent Medications Lasix, NaCl IV flushes Height 5 ft 4 in Weight 287.5 kg [place] Body Weight (kg) 54.54 BMI 108.8 Weight change and time frame expect weight fluctuations r/t fluid therapy, CHF complications Weight Status Morbidly Obese Subjective/Other Information Per MD notes 04/13: fluid restrictions, on nasal cannula 3L, possibly obesity hypoventilation syndrome, recommended to bariatric consult Percent of energy/protein needs met: Meals and snacks provided meet 100% of estimated energy needs. Current po intake of meals recorded average 50%. Burn Absent Trauma Absent GI Symptoms None Food Allergy No Current % PO Fair (50-74%) Minimum of two criteria No #1 Nutrition Diagnosis Overweight/obesity Comments: Discussed diet/life style changes using small goal successes to advancement, encouraged outpatient RD counseling at bariatric center Etiology dyspnea, respiratory distress As Evidenced by Signs and Symptoms BMI 103, IBW 498% Diagnosis Progress(for reassessment Continues documentation) Is patient on ventilator? No Is Patient Ambulatory and/or Out of Bed No REE-([facility]-confined to bed) 4277.724 Kcal/Kg value to use for calculation 10 Approximate Energy Requirements Using 2875 kcal/Kg Calculation Used for Recommendations Kcal/kg Additional Notes Protein 0.6 g/kg r/t BMI over 50: 163g Fluids: 1ml/kcal or per MD Nutrition Intervention Change Diet Order: continue with current diet Goal #1 Pt to contact and make appointment with outpatient RD in bariatric center Goal #2 weight to decrease -1% during LOS Follow-Up By: 04/20/21 Additional Comments f/u for weight loss, po intake
[2021-04-19] MEDS: NYSTATIN POWDER 15 GM TP SCH ×2 (09:59→21:36)
[2021-04-19] MEDS: methylPREDNISolone Sod Succinate 40 MG/1 ML INJ IV SCH ×2 (10:00→21:18)
[2021-04-19] MEDS ORDERED: LEVOTHYROXINE 100 MCG INJ IV NR (10:00)
[2021-04-19] MEDS: PANTOPRAZOLE 40 MG INJ IV SCH (10:00)
[2021-04-19] MEDS: ASPIRIN EC 325 MG TAB PO SCH (10:00)
--- NOTE | 2021-04-19 10:12 | Progress Note ---
Subjective Date of service: 04/19/21 Principal diagnosis: Ac hypoxemic and hypercapnic resp failure; AE-CHF; Morbid obesity; CLAUDIA/OHS Interval history: Assessment Acute kidney injury, unknown baseline. Renal ultrasound notes poor visualization due to body habitus. Hypernatremia Hyperkalemia Hypocalcemia Morbid obesity Recommendations Na is better today stopped Na tabls cr is stable today echo noted, likely diastolic disease rec lasix 40mg po bid, if diuresis desired, no need for high dose iv Maintain MAP more than 65 Hold SUNG/ARB at this time Hold diuretics given soft pressures Renally dose medications Avoid nephrotoxins Renal diet will follow lytes prn Subjective: Principal diagnosis: Acute on chronic renal insufficiency Interval history: Patient was seen for her renal issues Nursing, interdisciplinary and consult notes were reviewed Vitals, input and output, medications and labs were reviewed Objective - Exam Narrative Exam: General: Morbid obesity HEENT: Oral mucosa moist Neck: Supple, no JVD Chest: Clear to auscultation bilaterally Heart: RRR, S1 and S2, no pericardial rub Abdomen: Soft, nontender, no renal bruit Extremity: No peripheral cyanosis, edema Neurological: Awake and alert Dermatology: Unable to assess Psych: Calm and cooperative Musculoskeletal: No joint effusion Objective - Vital Signs Vital signs: Vital Signs - 12hr 04/18/21 04/18/21 04/18/21 22:25 22:30 23:00 Temperature Pulse Rate 123 H 117 H 106 H Pulse Rate [ Anterior Bilateral Throughout] Pulse Rate [ From Monitor] Respiratory 30 H 25 H 27 H Rate Respiratory Rate [Anterior Bilateral Throughout] Blood Pressure 129/72 139/82 137/74 O2 Sat by Pulse 94 97 95 Oximetry 04/18/21 04/18/21 04/19/21 23:03 23:30 00:00 Temperature 97.9 F Pulse Rate 105 H 101 H 104 H Pulse Rate [ Anterior Bilateral Throughout] Pulse Rate [ 103 H From Monitor] Respiratory 27 H 25 H 20 Rate Respiratory Rate [Anterior Bilateral Throughout] Blood Pressure 137/74 133/78 135/76 O2 Sat by Pulse 95 93 93 Oximetry 04/19/21 04/19/21 04/19/21 00:04 00:30 01:00 Temperature Pulse Rate 105 H 100 H 96 H Pulse Rate [ Anterior Bilateral Throughout] Pulse Rate [ From Monitor] Respiratory 31 H 27 H 24 Rate Respiratory Rate [Anterior Bilateral Throughout] Blood Pressure 135/76 143/87 139/83 O2 Sat by Pulse 93 96 97 Oximetry 04/19/21 04/19/21 04/19/21 01:30 02:00 02:30 Temperature Pulse Rate 99 H 100 H 97 H Pulse Rate [ Anterior Bilateral Throughout] Pulse Rate [ From Monitor] Respiratory 30 H 15 8 L Rate Respiratory Rate [Anterior Bilateral Throughout] Blood Pressure 146/91 145/91 142/90 O2 Sat by Pulse 97 95 99 Oximetry 04/19/21 04/19/21 04/19/21 03:00 03:30 04:00 Temperature 97.9 F Pulse Rate 95 H 96 H 95 H Pulse Rate [ Anterior Bilateral Throughout] Pulse Rate [ 95 H From Monitor] Respiratory 20 31 H 30 H Rate Respiratory Rate [Anterior Bilateral Throughout] Blood Pressure 146/92 150/93 143/94 O2 Sat by Pulse 99 99 100 Oximetry 04/19/21 04/19/21 04/19/21 04:30 04:33 05:00 Temperature Pulse Rate 94 H 94 H 100 H Pulse Rate [ Anterior Bilateral Throughout] Pulse Rate [ From Monitor] Respiratory 18 31 H 18 Rate Respiratory Rate [Anterior Bilateral Throughout] Blood Pressure 143/93 143/93 142/90 O2 Sat by Pulse 99 99 95 Oximetry 04/19/21 04/19/21 04/19/21 05:30 06:00 06:30 Temperature Pulse Rate 94 H 92 H 95 H Pulse Rate [ Anterior Bilateral Throughout] Pulse Rate [ From Monitor] Respiratory 10 L 21 12 Rate Respiratory Rate [Anterior Bilateral Throughout] Blood Pressure 132/84 135/85 142/84 O2 Sat by Pulse 97 98 95 Oximetry 04/19/21 04/19/21 04/19/21 07:00 07:03 07:30 Temperature 97.7 F Pulse Rate 93 H 90 Pulse Rate [ Anterior Bilateral Throughout] Pulse Rate [ From Monitor] Respiratory 30 H 22 Rate Respiratory Rate [Anterior Bilateral Throughout] Blood Pressure 142/89 130/79 O2 Sat by Pulse 98 98 Oximetry 04/19/21 04/19/21 04/19/21 08:00 08:30 09:00 Temperature Pulse Rate 91 H 91 H 93 H Pulse Rate [ 98 H Anterior Bilateral Throughout] Pulse Rate [ From Monitor] Respiratory 16 12 19 Rate Respiratory 16 Rate [Anterior Bilateral Throughout] Blood Pressure 150/91 141/88 133/81 O2 Sat by Pulse 100 97 99 Oximetry - Lab 04/19/21 04:40 10/03/21 04:40 Most recent lab results ABG pH 7.382 (7.320-7.450) 04/18/21 14:19 ABG pCO2 86.9 mm Hg 04/13/21 18:40 ABG pO2 81.8 mm Hg (80.0-90.0) 04/13/21 18:40 ABG HCO3 36.2 mmol/L (20.0-26.0) H 04/13/21 18:40 ABG O2 Saturation 99.4 (0-100) 04/18/21 14:19 Calcium 9.3 mg/dL (8.4-10.2) 04/19/21 04:40 Urine Sodium 16 mmol/L 04/09/21 18:46 Medications & Allergies - Medications Allergies/Adverse Reactions: Allergies No Known Allergies Allergy (Unverified 01/27/17 11:17) Home Medications: Home Medications Medication Instructions Recorded Confirmed Last Taken Type Acetaminophen [Acetaminophen TAB] 325 mg PO Q4H PRN #30 tablet 06/30/17 08/08/20 Unknown Rx ALBUTEROL NEB's [Proventil 0.083% 2.5 mg IH Q3HRT PRN #30 day 08/10/20 Unknown Rx NEBS] Albuterol Mdi (or & Nicu Only) 2 puff IH QID PRN #1 inhalation 08/10/20 Unknown Rx [ProAir HFA Inhaler] Azithromycin [Zithromax Z-BIN] 0 mg PO DAILY #1 tab 08/10/20 Unknown Rx Benzonatate [Tessalon Perles] 100 mg PO Q8HR #15 capsule 08/10/20 Unknown Rx Famotidine [Pepcid] 20 mg PO BID #14 tablet 08/10/20 Unknown Rx Ipratropium/Albuterol Sulfate 1 ampul IH TIDRT #30 day 08/10/20 Unknown Rx [DUONEB *Not for PRN Use*] hydroCHLOROthiazide [HCTZ] 25 mg PO QDAY tablet 08/10/20 Unknown Rx hydroCHLOROthiazide [HCTZ] 25 mg PO QDAY #30 tablet 08/10/20 Unknown Rx methylPREDNISolone [Medrol 4MG 4 mg PO DAILY #1 tab.ds.pk 08/10/20 Unknown Rx DOSEPAK (21 tabs)] Active Medications: Generic Name Dose Route Start Last Admin Trade Name Freq PRN Reason Stop Dose Admin Acetaminophen 650 mg 04/08/21 03:00 04/17/21 06:42 Acetaminophen 325 Mg Tab PO 650 mg Q4H PRN Administration Pain MILD(1-3)/Fever >100.5/BROWN Albuterol 2.5 mg 04/08/21 03:00 Albuterol 2.5 Mg/3 Ml Nebu IH Q4HRT PRN Shortness Of Breath Albuterol/Ipratropium 1 ampul 04/08/21 08:00 04/19/21 09:04 Ipratropium/Albuterol Sulfate 3 Ml Ampul.Neb IH 1 ampul TIDRT EKATERINA Administration Aspirin 325 mg 04/09/21 10:00 04/19/21 10:00 Aspirin Ec 325 Mg Tab PO 325 mg QDAY [facility] Administration Atorvastatin Calcium 40 mg 04/08/21 22:00 04/18/21 21:06 Atorvastatin 40 Mg Tab PO 40 mg QHS EKATERINA Administration Benzonatate 100 mg 04/08/21 06:00 04/19/21 06:31 Benzonatate 100 Mg Cap PO Not Given Q8HR [facility] Guaifenesin 200 mg 04/12/21 14:47 04/17/21 06:43 Guaifenesin 100 Mg/5 Ml Oral Liqd PO 200 mg Q4H PRN Administration Cough Haloperidol Lactate 5 mg 04/18/21 16:27 Haloperidol Lactate 5 Mg/1 Ml Inj IV Q6H PRN Agitation Heparin Sodium (Porcine) 5,000 unit 04/18/21 14:00 04/19/21 06:30 Heparin 5,000 Unit/1 Ml Vial SUB-Q 5,000 unit Q8HR EKATERINA Administration Levothyroxine Sodium 100 mcg 04/20/21 06:00 Levothyroxine 100 Mcg Inj IV DAILY@0600 EKATERINA Levothyroxine Sodium 100 mcg 04/19/21 10:00 04/19/21 10:01 Levothyroxine 100 Mcg Inj IV 04/19/21 14:00 100 mcg ONCE@1000 NR Administration Methylprednisolone Sodium Succinate 20 mg 04/16/21 10:00 04/19/21 10:00 Methylprednisolone Sod Succinate 40 Mg/1 Ml Inj IV 20 mg Q12HR EKATERINA Administration Nitroglycerin 0.4 mg 04/08/21 03:00 Nitroglycerin 0.4 Mg Tab Subl SL Q5M PRN Chest Pain Nystatin 1 applic 04/08/21 18:00 04/19/21 09:59 Nystatin Powder 15 Gm TP 1 applic BID EKATERINA Administration Ondansetron HCl 4 mg 04/08/21 03:00 04/15/21 23:51 Ondansetron 4 Mg/2 Ml Inj IV 4 mg Q8H PRN Administration Nausea And Vomiting Oxycodone/Acetaminophen 1 tab 04/08/21 03:00 04/17/21 21:19 Oxycodone /Acetaminophen 5-325mg Tab PO 1 tab Q6H PRN Administration Pain, Moderate (4-6) Pantoprazole Sodium 40 mg 04/16/21 10:00 04/19/21 10:00 Pantoprazole 40 Mg Inj IV 40 mg QDAY EKATERINA Administration Quetiapine Fumarate 75 mg 04/18/21 22:00 04/18/21 21:06 Quetiapine 25 Mg Tab PO 75 mg QHS EKATERINA Administration Sodium Chloride 10 ml 04/08/21 10:00 04/19/21 10:00 Sodium Chloride 0.9% 10 Ml Flush Syringe IV 10 ml BID EKATERINA Administration Sodium Chloride 10 ml 04/08/21 03:00 Sodium Chloride 0.9% 10 Ml Flush Syringe IV PRN PRN LINE FLUSH Tramadol HCl 50 mg 04/08/21 03:00 Tramadol 50 Mg Tab PO Q6H PRN Pain, Moderate (4-6)
--- NOTE | 2021-04-19 16:28 | Progress Note ---
Assessment and Plan Acute hypoxemic and hypercapnic respiratory failure Acute exacerbation of CHF (congestive heart failure) Hypertension Morbid obesity with BMI of 70 and over, adult Obesity hypoventilation syndrome Sleep apnea - repeat ABG at 9pm tonight to assess ventilation - continue NIV qhs with prn daytime use - continue avoid opiates / sedating drugs - dopplers negative for VTE - will hold on full anticoagulation with improvement clinically and in hypoxemia - continue care as below otherwise; - continue diuresis while following electrolytes - continue to wean supplemental oxygen for target O2 sat's > 90% acutely - aspiration precautions - continue bronchodilators with pulmonary hygiene per RT - continue accuchecks with glycemic control per SSI (While critically ill target blood glucose of 140-180 mg/dL; avoid hypoglycemia) - avoid nephrotoxins, renally dose all medications - AB's per ID rec's - prn analgesia per pain score - Maintenance of sleep-wake cycle, avoid delirium - G.I. & VTE prophylaxis - PT/OT/ROM exercises - continue mobility protocols for pressure ulcer prophylaxis - Monitor hemodynamics closely - continue other care per attending / other consultants - discharge planning ongoing concurrently COVID SPECIFIC INTERVENTIONS - COVID-19 assay negative .... Re-evaluate in am & prn I have spent ( >35 ) minutes with the patient w/ >50% of the time spent counseling and/or coordinating care for this patient. Counseling topics and/or how time was spent coordinating patient's care is outlined in the impression and plan above. Subjective Date of service: 04/19/21 Principal diagnosis: Ac hypoxemic and hypercapnic resp failure; AE-CHF; Morbid obesity; CLAUDIA/OHS Interval history: Patient is seen today for: Acute hypoxemic and hypercapnic respiratory failure; Acute exacerbation of CHF; Hypertension; Morbid obesity; CLAUDIA / OHS Seen and examined at bedside; 24hour events reviewed; nursing and respiratory care staff consulted; no adverse overnight events reported to me; resting in bed; tolerating 50% venti-mask with good oxygenation; alert; anxious; tolerated BIPAP qhs and got good sleep with Seroquel qhs; No N/V/F/C Objective Vital Signs - 12hr 04/19/21 04/19/21 04/19/21 04:30 04:33 05:00 Temperature Pulse Rate 94 H 94 H 100 H Pulse Rate [ Anterior Bilateral Throughout] Respiratory 18 31 H 18 Rate Respiratory Rate [Anterior Bilateral Throughout] Blood Pressure 143/93 143/93 142/90 O2 Sat by Pulse 99 99 95 Oximetry 04/19/21 04/19/21 04/19/21 05:30 06:00 06:30 Temperature Pulse Rate 94 H 92 H 95 H Pulse Rate [ Anterior Bilateral Throughout] Respiratory 10 L 21 12 Rate Respiratory Rate [Anterior Bilateral Throughout] Blood Pressure 132/84 135/85 142/84 O2 Sat by Pulse 97 98 95 Oximetry 04/19/21 04/19/21 04/19/21 07:00 07:03 07:30 Temperature 97.7 F Pulse Rate 93 H 90 Pulse Rate [ Anterior Bilateral Throughout] Respiratory 30 H 22 Rate Respiratory Rate [Anterior Bilateral Throughout] Blood Pressure 142/89 130/79 O2 Sat by Pulse 98 98 Oximetry 04/19/21 04/19/21 04/19/21 08:00 08:30 09:00 Temperature Pulse Rate 91 H 91 H 93 H Pulse Rate [ 98 H Anterior Bilateral Throughout] Respiratory 16 12 19 Rate Respiratory 16 Rate [Anterior Bilateral Throughout] Blood Pressure 150/91 141/88 133/81 O2 Sat by Pulse 100 97 99 Oximetry 04/19/21 04/19/21 04/19/21 09:30 10:01 10:30 Temperature Pulse Rate 104 H 101 H 101 H Pulse Rate [ Anterior Bilateral Throughout] Respiratory 24 14 21 Rate Respiratory Rate [Anterior Bilateral Throughout] Blood Pressure 124/89 134/98 150/83 O2 Sat by Pulse 100 100 100 Oximetry 04/19/21 04/19/21 04/19/21 11:00 11:30 13:40 Temperature Pulse Rate 106 H 104 H Pulse Rate [ 98 H Anterior Bilateral Throughout] Respiratory 28 H 26 H Rate Respiratory 22 Rate [Anterior Bilateral Throughout] Blood Pressure 165/103 190/94 O2 Sat by Pulse 100 99 Oximetry 04/19/21 13:41 Temperature Pulse Rate Pulse Rate [ Anterior Bilateral Throughout] Respiratory Rate Respiratory Rate [Anterior Bilateral Throughout] Blood Pressure O2 Sat by Pulse 100 Oximetry Constitutional: asleep, appears uncomfortable, other (young extremely obese female with mildly increased respiratory effort at rest on NIV) Eyes: non-icteric ENT: oropharynx moist, other (BIPAP FFM) Neck: supple, no lymphadenopathy, no JVD Effort: mildly labored Ascultation: Bilateral: diminished breath sounds, rhonchi Percussion: Bilateral: not dull Cardiovascular: regular rate and rhythm Gastrointestinal: normoactive bowel sounds, soft, non-tender, non-distended (protuberant) Integumentary: rash (stasis dermatitis type), other (Stasis dermatititis on legs and abdomen; see [facility] notes for full details) Extremities: pulses normal, no ischemia or petechiae, edema (2+), other (stasis dermatitis) Neurologic: non-focal exam (grossly), pupils equal and round, CN II-XII normal Psychiatric: depressed CBC and BMP: 04/19/21 04:40 04/19/21 04:40 ABG, PT/INR, D-dimer: ABG ABG pH 7.382 (7.320-7.450) 04/18/21 14:19 POC ABG pCO2 67.4 mmHg (32.0-48.0) H 04/18/21 14:19 ABG pCO2 86.9 mm Hg 04/13/21 18:40 POC ABG pO2 150.6 mmHg (83-108) H 04/18/21 14:19 ABG pO2 81.8 mm Hg (80.0-90.0) 04/13/21 18:40 POC ABG HCO3 39.2 04/18/21 14:19 ABG O2 Saturation 99.4 (0-100) 04/18/21 14:19 PT/INR, D-dimer PT 18.7 Sec. (12.2-14.9) H 04/18/21 16:55 INR 1.51 (0.87-1.13) H 04/18/21 16:55 D-Dimer 5410.10 ng/mlDDU (0-234) H 04/17/21 16:03 Abnormal lab findings: Abnormal Labs 04/07/21 04/07/21 04/08/21 22:04 22:04 00:18 WBC 17.7 H Hgb 9.1 L Hct MCV 77 L MCH 21 L MCHC 27 L RDW 24.3 H Seg Neuts % (Manual) Lymphocytes % (Manual) Nucleated RBC % Seg Neutrophils # Man Lymphocytes # (Manual) Monocytes # (Manual) PT INR D-Dimer ABG pH POC ABG pCO2 POC ABG pO2 ABG pO2 ABG HCO3 ABG Base Excess ABG Hemoglobin ABG Oxyhemoglobin ABG Sodium ABG Chloride ABG Glucose Oxyhemoglobin Carboxyhemoglobin Sodium 135 L Potassium Chloride 91.0 L Carbon Dioxide 17 L BUN Creatinine 1.4 H Glucose 55 L POC Glucose 49 L Calcium Ionized Calcium Total Bilirubin AST ALT Total Creatine Kinase Troponin T 0.043 H NT-Pro-B Natriuret Pep 7573 H Total Protein Albumin LDL Cholesterol Direct 47 L HDL Cholesterol 25 L TSH Free T4 Arterial Blood Glucose 04/08/21 04/08/21 04/08/21 04:03 04:03 09:22 WBC 24.3 H Hgb 9.3 L Hct MCV 74 L MCH 21 L MCHC 29 L RDW 23.1 H Seg Neuts % (Manual) 78.0 H Lymphocytes % (Manual) 7.0 L Nucleated RBC % 1.0 H Seg Neutrophils # Man 19.0 H Lymphocytes # (Manual) Monocytes # (Manual) 1.0 H PT INR D-Dimer ABG pH POC ABG pCO2 POC ABG pO2 ABG pO2 ABG HCO3 ABG Base Excess ABG Hemoglobin ABG Oxyhemoglobin ABG Sodium ABG Chloride ABG Glucose Oxyhemoglobin Carboxyhemoglobin Sodium 134 L Potassium Chloride 91.2 L Carbon Dioxide BUN Creatinine 1.8 H Glucose POC Glucose Calcium Ionized Calcium Total Bilirubin AST ALT Total Creatine Kinase Troponin T 0.099 H NT-Pro-B Natriuret Pep Total Protein Albumin LDL Cholesterol Direct HDL Cholesterol TSH Free T4 Arterial Blood Glucose 04/08/21 04/08/21 04/09/21 13:03 20:28 04:52 WBC 20.9 H Hgb 8.5 L Hct 30.0 L MCV 73 L MCH 21 L MCHC 28 L RDW 23.9 H Seg Neuts % (Manual) 77.0 H Lymphocytes % (Manual) 1.0 L Nucleated RBC % 1.0 H Seg Neutrophils # Man 16.1 H Lymphocytes # (Manual) 0.2 L Monocytes # (Manual) PT INR D-Dimer ABG pH POC ABG pCO2 POC ABG pO2 ABG pO2 ABG HCO3 ABG Base Excess ABG Hemoglobin ABG Oxyhemoglobin ABG Sodium ABG Chloride ABG Glucose Oxyhemoglobin Carboxyhemoglobin Sodium Potassium Chloride Carbon Dioxide BUN Creatinine Glucose POC Glucose 115 H Calcium Ionized Calcium Total Bilirubin AST ALT Total Creatine Kinase Troponin T 0.078 H D NT-Pro-B Natriuret Pep Total Protein Albumin LDL Cholesterol Direct HDL Cholesterol TSH Free T4 Arterial Blood Glucose 0904/09/21 04/09/21 04:52 08:46 11:50 WBC Hgb Hct MCV MCH MCHC RDW Seg Neuts % (Manual) Lymphocytes % (Manual) Nucleated RBC % Seg Neutrophils # Man Lymphocytes # (Manual) Monocytes # (Manual) PT INR D-Dimer ABG pH POC ABG pCO2 POC ABG pO2 ABG pO2 ABG HCO3 ABG Base Excess ABG Hemoglobin ABG Oxyhemoglobin ABG Sodium ABG Chloride ABG Glucose Oxyhemoglobin Carboxyhemoglobin Sodium 129 L Potassium 5.6 H Chloride 88.6 L Carbon Dioxide BUN 27 H Creatinine 2.4 H Glucose 121 H POC Glucose 139 H 156 H Calcium 7.7 L Ionized Calcium Total Bilirubin AST ALT Total Creatine Kinase Troponin T NT-Pro-B Natriuret Pep Total Protein Albumin LDL Cholesterol Direct HDL Cholesterol TSH Free T4 Arterial Blood Glucose 04/09/21 04/09/21 04/09/21 15:46 16:58 22:08 WBC Hgb Hct MCV MCH MCHC RDW Seg Neuts % (Manual) Lymphocytes % (Manual) Nucleated RBC % Seg Neutrophils # Man Lymphocytes # (Manual) Monocytes # (Manual) PT INR D-Dimer ABG pH POC ABG pCO2 POC ABG pO2 ABG pO2 ABG HCO3 ABG Base Excess ABG Hemoglobin ABG Oxyhemoglobin ABG Sodium ABG Chloride ABG Glucose Oxyhemoglobin Carboxyhemoglobin Sodium 128 L Potassium 5.5 H Chloride 88.1 L Carbon Dioxide BUN 33 H Creatinine 2.7 H Glucose 172 H POC Glucose 187 H 186 H Calcium 7.3 L Ionized Calcium Total Bilirubin AST ALT Total Creatine Kinase Troponin T NT-Pro-B Natriuret Pep Total Protein Albumin LDL Cholesterol Direct HDL Cholesterol TSH Free T4 Arterial Blood Glucose 04/09/21 04/10/21 04/10/21 23:15 02:20 07:39 WBC Hgb Hct MCV MCH MCHC RDW Seg Neuts % (Manual) Lymphocytes % (Manual) Nucleated RBC % Seg Neutrophils # Man Lymphocytes # (Manual) Monocytes # (Manual) PT INR D-Dimer ABG pH POC ABG pCO2 POC ABG pO2 ABG pO2 ABG HCO3 ABG Base Excess ABG Hemoglobin ABG Oxyhemoglobin ABG Sodium ABG Chloride ABG Glucose Oxyhemoglobin Carboxyhemoglobin Sodium 128 L Potassium 5.2 H Chloride 88.6 L Carbon Dioxide BUN 39 H Creatinine 3.1 H Glucose 171 H POC Glucose 168 H Calcium 7.2 L Ionized Calcium 3.6 L Total Bilirubin AST ALT Total Creatine Kinase Troponin T NT-Pro-B Natriuret Pep Total Protein Albumin LDL Cholesterol Direct HDL Cholesterol TSH Free T4 Arterial Blood Glucose 04/10/21 04/10/21 04/10/21 10:04 11:37 17:18 WBC Hgb Hct MCV MCH MCHC RDW Seg Neuts % (Manual) Lymphocytes % (Manual) Nucleated RBC % Seg Neutrophils # Man Lymphocytes # (Manual) Monocytes # (Manual) PT INR D-Dimer ABG pH POC ABG pCO2 POC ABG pO2 ABG pO2 ABG HCO3 ABG Base Excess ABG Hemoglobin ABG Oxyhemoglobin ABG Sodium ABG Chloride ABG Glucose Oxyhemoglobin Carboxyhemoglobin Sodium Potassium Chloride Carbon Dioxide BUN Creatinine Glucose POC Glucose 170 H 152 H Calcium Ionized Calcium Total Bilirubin AST ALT Total Creatine Kinase 1712 H Troponin T NT-Pro-B Natriuret Pep Total Protein Albumin LDL Cholesterol Direct HDL Cholesterol TSH Free T4 Arterial Blood Glucose 04/10/21 04/10/21 04/11/21 19:38 22:02 05:48 WBC Hgb Hct MCV MCH MCHC RDW Seg Neuts % (Manual) Lymphocytes % (Manual) Nucleated RBC % Seg Neutrophils # Man Lymphocytes # (Manual) Monocytes # (Manual) PT INR D-Dimer ABG pH POC ABG pCO2 POC ABG pO2 ABG pO2 ABG HCO3 ABG Base Excess ABG Hemoglobin ABG Oxyhemoglobin ABG Sodium ABG Chloride ABG Glucose Oxyhemoglobin Carboxyhemoglobin Sodium 128 L 124 L Potassium 5.8 H D Chloride 89.6 L 89.4 L Carbon Dioxide BUN 47 H 53 H Creatinine 3.0 H 2.8 H Glucose 165 H 150 H POC Glucose 147 H Calcium 6.9 L 7.2 L Ionized Calcium Total Bilirubin AST ALT Total Creatine Kinase Troponin T NT-Pro-B Natriuret Pep Total Protein Albumin LDL Cholesterol Direct HDL Cholesterol TSH Free T4 Arterial Blood Glucose 04/11/21 04/11/21 04/11/21 08:48 11:35 19:12 WBC Hgb Hct MCV MCH MCHC RDW Seg Neuts % (Manual) Lymphocytes % (Manual) Nucleated RBC % Seg Neutrophils # Man Lymphocytes # (Manual) Monocytes # (Manual) PT INR D-Dimer ABG pH POC ABG pCO2 POC ABG pO2 ABG pO2 ABG HCO3 ABG Base Excess ABG Hemoglobin ABG Oxyhemoglobin ABG Sodium ABG Chloride ABG Glucose Oxyhemoglobin Carboxyhemoglobin Sodium 128 L Potassium Chloride 89.7 L Carbon Dioxide BUN 53 H Creatinine 2.4 H Glucose 159 H POC Glucose 152 H 152 H Calcium 7.1 L Ionized Calcium Total Bilirubin AST ALT Total Creatine Kinase Troponin T NT-Pro-B Natriuret Pep Total Protein Albumin LDL Cholesterol Direct HDL Cholesterol TSH Free T4 Arterial Blood Glucose 04/11/21 04/12/21 04/12/21 22:03 05:03 07:41 WBC Hgb Hct MCV MCH MCHC RDW Seg Neuts % (Manual) Lymphocytes % (Manual) Nucleated RBC % Seg Neutrophils # Man Lymphocytes # (Manual) Monocytes # (Manual) PT INR D-Dimer ABG pH POC ABG pCO2 POC ABG pO2 ABG pO2 ABG HCO3 ABG Base Excess ABG Hemoglobin ABG Oxyhemoglobin ABG Sodium ABG Chloride ABG Glucose Oxyhemoglobin Carboxyhemoglobin Sodium 134 L Potassium Chloride 92.9 L Carbon Dioxide 33 H D BUN 54 H Creatinine 2.4 H Glucose 150 H POC Glucose 152 H 144 H Calcium 7.2 L Ionized Calcium Total Bilirubin AST ALT Total Creatine Kinase Troponin T NT-Pro-B Natriuret Pep Total Protein Albumin LDL Cholesterol Direct HDL Cholesterol TSH Free T4 Arterial Blood Glucose 04/12/21 04/12/21 04/12/21 11:38 14:11 17:02 WBC 14.7 H Hgb 8.7 L Hct 29.8 L MCV 74 L MCH 22 L MCHC 29 L RDW 24.9 H Seg Neuts % (Manual) 86.0 H Lymphocytes % (Manual) 6.0 L Nucleated RBC % Seg Neutrophils # Man 12.6 H Lymphocytes # (Manual) 0.9 L Monocytes # (Manual) PT INR D-Dimer ABG pH POC ABG pCO2 POC ABG pO2 ABG pO2 ABG HCO3 ABG Base Excess ABG Hemoglobin ABG Oxyhemoglobin ABG Sodium ABG Chloride ABG Glucose Oxyhemoglobin Carboxyhemoglobin Sodium Potassium Chloride Carbon Dioxide BUN Creatinine Glucose POC Glucose 151 H 154 H Calcium Ionized Calcium Total Bilirubin AST ALT Total Creatine Kinase Troponin T NT-Pro-B Natriuret Pep Total Protein Albumin LDL Cholesterol Direct HDL Cholesterol TSH Free T4 Arterial Blood Glucose 04/12/21 04/13/21 04/13/21 23:14 05:03 10:00 WBC Hgb Hct MCV MCH MCHC RDW Seg Neuts % (Manual) Lymphocytes % (Manual) Nucleated RBC % Seg Neutrophils # Man Lymphocytes # (Manual) Monocytes # (Manual) PT INR D-Dimer ABG pH 7.150 L* POC ABG pCO2 POC ABG pO2 ABG pO2 91.8 H ABG HCO3 37.2 H ABG Base Excess 7.1 H ABG Hemoglobin 7.1 L ABG Oxyhemoglobin ABG Sodium ABG Chloride ABG Glucose Oxyhemoglobin 93.4 L Carboxyhemoglobin Sodium 134 L Potassium Chloride 91.3 L Carbon Dioxide 33 H BUN 63 H Creatinine 2.2 H Glucose 159 H POC Glucose 151 H Calcium 7.8 L Ionized Calcium Total Bilirubin AST ALT Total Creatine Kinase Troponin T NT-Pro-B Natriuret Pep Total Protein Albumin LDL Cholesterol Direct HDL Cholesterol TSH Free T4 Arterial Blood Glucose 04/13/21 04/13/21 04/13/21 12:39 16:37 18:40 WBC Hgb Hct MCV MCH MCHC RDW Seg Neuts % (Manual) Lymphocytes % (Manual) Nucleated RBC % Seg Neutrophils # Man Lymphocytes # (Manual) Monocytes # (Manual) PT INR D-Dimer ABG pH 7.237 L POC ABG pCO2 POC ABG pO2 ABG pO2 ABG HCO3 36.2 H ABG Base Excess 7.4 H ABG Hemoglobin 7.8 L ABG Oxyhemoglobin ABG Sodium ABG Chloride ABG Glucose Oxyhemoglobin 93.7 L Carboxyhemoglobin Sodium Potassium Chloride Carbon Dioxide BUN Creatinine Glucose POC Glucose 140 H 132 H Calcium Ionized Calcium Total Bilirubin AST ALT Total Creatine Kinase Troponin T NT-Pro-B Natriuret Pep Total Protein Albumin LDL Cholesterol Direct HDL Cholesterol TSH Free T4 Arterial Blood Glucose 04/13/21 04/14/21 04/14/21 23:55 04:27 04:27 WBC Hgb 8.5 L Hct 29.1 L MCV 72 L MCH 21 L MCHC 29 L RDW 24.9 H Seg Neuts % (Manual) Lymphocytes % (Manual) Nucleated RBC % Seg Neutrophils # Man Lymphocytes # (Manual) Monocytes # (Manual) PT INR D-Dimer ABG pH POC ABG pCO2 POC ABG pO2 ABG pO2 ABG HCO3 ABG Base Excess ABG Hemoglobin ABG Oxyhemoglobin ABG Sodium ABG Chloride ABG Glucose Oxyhemoglobin Carboxyhemoglobin Sodium 135 L Potassium Chloride 93.5 L Carbon Dioxide 33 H BUN 68 H Creatinine 1.9 H Glucose 143 H POC Glucose 135 H Calcium 8.1 L Ionized Calcium Total Bilirubin 1.50 H AST 494 H ALT 835 H Total Creatine Kinase Troponin T NT-Pro-B Natriuret Pep Total Protein 9.5 H Albumin 3.1 L LDL Cholesterol Direct HDL Cholesterol TSH Free T4 Arterial Blood Glucose 04/14/21 04/14/21 04/15/21 12:03 17:24 00:19 WBC Hgb Hct MCV MCH MCHC RDW Seg Neuts % (Manual) Lymphocytes % (Manual) Nucleated RBC % Seg Neutrophils # Man Lymphocytes # (Manual) Monocytes # (Manual) PT INR D-Dimer ABG pH 7.291 L POC ABG pCO2 75.5 H POC ABG pO2 76.2 L ABG pO2 ABG HCO3 ABG Base Excess ABG Hemoglobin 9.9 L ABG Oxyhemoglobin 91.0 L ABG Sodium 134.9 L ABG Chloride 93.0 L ABG Glucose 146 H Oxyhemoglobin Carboxyhemoglobin 2.2 H Sodium Potassium Chloride Carbon Dioxide BUN Creatinine Glucose POC Glucose 134 H 136 H Calcium Ionized Calcium Total Bilirubin AST ALT Total Creatine Kinase Troponin T NT-Pro-B Natriuret Pep Total Protein Albumin LDL Cholesterol Direct HDL Cholesterol TSH Free T4 Arterial Blood Glucose 146 H 04/15/21 04/15/21 04/15/21 04:55 04:55 05:29 WBC Hgb 8.0 L Hct 27.1 L MCV 70 L MCH 21 L MCHC RDW 24.3 H Seg Neuts % (Manual) Lymphocytes % (Manual) Nucleated RBC % Seg Neutrophils # Man Lymphocytes # (Manual) Monocytes # (Manual) PT INR D-Dimer ABG pH POC ABG pCO2 POC ABG pO2 ABG pO2 ABG HCO3 ABG Base Excess ABG Hemoglobin ABG Oxyhemoglobin ABG Sodium ABG Chloride ABG Glucose Oxyhemoglobin Carboxyhemoglobin Sodium Potassium Chloride 95.1 L Carbon Dioxide 36 H BUN 63 H Creatinine 1.5 H Glucose 131 H POC Glucose 118 H Calcium 8.3 L Ionized Calcium Total Bilirubin 1.80 H AST 323 H ALT 609 H Total Creatine Kinase Troponin T NT-Pro-B Natriuret Pep Total Protein 9.3 H Albumin 2.9 L LDL Cholesterol Direct HDL Cholesterol TSH Free T4 Arterial Blood Glucose 04/15/21 04/15/21 04/15/21 11:40 18:30 22:44 WBC Hgb Hct MCV MCH MCHC RDW Seg Neuts % (Manual) Lymphocytes % (Manual) Nucleated RBC % Seg Neutrophils # Man Lymphocytes # (Manual) Monocytes # (Manual) PT INR D-Dimer ABG pH POC ABG pCO2 POC ABG pO2 ABG pO2 ABG HCO3 ABG Base Excess ABG Hemoglobin ABG Oxyhemoglobin ABG Sodium ABG Chloride ABG Glucose Oxyhemoglobin Carboxyhemoglobin Sodium Potassium Chloride Carbon Dioxide BUN Creatinine Glucose POC Glucose 139 H 130 H 123 H Calcium Ionized Calcium Total Bilirubin AST ALT Total Creatine Kinase Troponin T NT-Pro-B Natriuret Pep Total Protein Albumin LDL Cholesterol Direct HDL Cholesterol TSH Free T4 Arterial Blood Glucose 04/16/21 04/16/21 04/16/21 04:53 04:53 07:16 WBC 12.5 H Hgb 8.8 L Hct 30.2 L MCV 74 L MCH 21 L MCHC 29 L RDW 24.5 H Seg Neuts % (Manual) Lymphocytes % (Manual) Nucleated RBC % Seg Neutrophils # Man Lymphocytes # (Manual) Monocytes # (Manual) PT INR D-Dimer ABG pH POC ABG pCO2 POC ABG pO2 ABG pO2 ABG HCO3 ABG Base Excess ABG Hemoglobin ABG Oxyhemoglobin ABG Sodium ABG Chloride ABG Glucose Oxyhemoglobin Carboxyhemoglobin Sodium Potassium Chloride 96.9 L Carbon Dioxide 35 H BUN 65 H Creatinine 1.5 H Glucose 142 H POC Glucose 138 H Calcium Ionized Calcium Total Bilirubin 1.50 H AST 251 H ALT 572 H Total Creatine Kinase Troponin T NT-Pro-B Natriuret Pep Total Protein 10.1 H Albumin 3.2 L LDL Cholesterol Direct HDL Cholesterol TSH Free T4 Arterial Blood Glucose 04/16/21 04/16/21 04/16/21 07:32 11:29 14:42 WBC Hgb Hct MCV MCH MCHC RDW Seg Neuts % (Manual) Lymphocytes % (Manual) Nucleated RBC % Seg Neutrophils # Man Lymphocytes # (Manual) Monocytes # (Manual) PT INR D-Dimer ABG pH 7.086 L 7.188 L POC ABG pCO2 142.2 H 99.3 H POC ABG pO2 196.3 H 132.3 H ABG pO2 ABG HCO3 ABG Base Excess ABG Hemoglobin 10.0 L 9.2 L ABG Oxyhemoglobin ABG Sodium ABG Chloride 96.0 L 96.0 L ABG Glucose 147 H 146 H Oxyhemoglobin Carboxyhemoglobin 1.6 H 2.0 H Sodium Potassium Chloride Carbon Dioxide BUN Creatinine Glucose POC Glucose 131 H Calcium Ionized Calcium Total Bilirubin AST ALT Total Creatine Kinase Troponin T NT-Pro-B Natriuret Pep Total Protein Albumin LDL Cholesterol Direct HDL Cholesterol TSH Free T4 Arterial Blood Glucose 147 H 146 H 04/16/21 04/16/21 04/17/21 17:23 22:34 07:44 WBC Hgb Hct MCV MCH MCHC RDW Seg Neuts % (Manual) Lymphocytes % (Manual) Nucleated RBC % Seg Neutrophils # Man Lymphocytes # (Manual) Monocytes # (Manual) PT INR D-Dimer ABG pH POC ABG pCO2 POC ABG pO2 ABG pO2 ABG HCO3 ABG Base Excess ABG Hemoglobin ABG Oxyhemoglobin ABG Sodium ABG Chloride ABG Glucose Oxyhemoglobin Carboxyhemoglobin Sodium Potassium Chloride Carbon Dioxide BUN Creatinine Glucose POC Glucose 117 H 169 H 150 H Calcium Ionized Calcium Total Bilirubin AST ALT Total Creatine Kinase Troponin T NT-Pro-B Natriuret Pep Total Protein Albumin LDL Cholesterol Direct HDL Cholesterol TSH Free T4 Arterial Blood Glucose 04/17/21 04/17/21 04/17/21 08:55 08:55 09:47 WBC Hgb 8.7 L Hct 29.4 L MCV 74 L MCH 22 L MCHC RDW 24.8 H Seg Neuts % (Manual) Lymphocytes % (Manual) Nucleated RBC % Seg Neutrophils # Man Lymphocytes # (Manual) Monocytes # (Manual) PT INR D-Dimer ABG pH 7.234 L POC ABG pCO2 90.5 H POC ABG pO2 139.4 H ABG pO2 ABG HCO3 ABG Base Excess ABG Hemoglobin 9.5 L ABG Oxyhemoglobin ABG Sodium ABG Chloride 97.0 L ABG Glucose 179 H Oxyhemoglobin Carboxyhemoglobin 1.7 H Sodium Potassium Chloride 94.4 L Carbon Dioxide 37 H BUN 68 H Creatinine 1.5 H Glucose 178 H POC Glucose Calcium Ionized Calcium Total Bilirubin 1.60 H AST 172 H ALT 437 H Total Creatine Kinase Troponin T NT-Pro-B Natriuret Pep Total Protein 10.1 H Albumin 3.2 L LDL Cholesterol Direct HDL Cholesterol TSH Free T4 Arterial Blood Glucose 179 H 04/17/21 04/17/21 04/17/21 11:39 16:03 17:24 WBC Hgb Hct MCV MCH MCHC RDW Seg Neuts % (Manual) Lymphocytes % (Manual) Nucleated RBC % Seg Neutrophils # Man Lymphocytes # (Manual) Monocytes # (Manual) PT INR D-Dimer 5410.10 H ABG pH POC ABG pCO2 POC ABG pO2 ABG pO2 ABG HCO3 ABG Base Excess ABG Hemoglobin ABG Oxyhemoglobin ABG Sodium ABG Chloride ABG Glucose Oxyhemoglobin Carboxyhemoglobin Sodium Potassium Chloride Carbon Dioxide BUN Creatinine Glucose POC Glucose 161 H 130 H Calcium Ionized Calcium Total Bilirubin AST ALT Total Creatine Kinase Troponin T NT-Pro-B Natriuret Pep Total Protein Albumin LDL Cholesterol Direct HDL Cholesterol TSH Free T4 Arterial Blood Glucose 04/17/21 04/18/21 04/18/21 21:52 10:20 11:58 WBC Hgb Hct MCV MCH MCHC RDW Seg Neuts % (Manual) Lymphocytes % (Manual) Nucleated RBC % Seg Neutrophils # Man Lymphocytes # (Manual) Monocytes # (Manual) PT INR D-Dimer ABG pH POC ABG pCO2 POC ABG pO2 ABG pO2 ABG HCO3 ABG Base Excess ABG Hemoglobin ABG Oxyhemoglobin ABG Sodium ABG Chloride ABG Glucose Oxyhemoglobin Carboxyhemoglobin Sodium 146 H D Potassium Chloride Carbon Dioxide BUN 75 H Creatinine 1.6 H Glucose 158 H POC Glucose 150 H 143 H Calcium Ionized Calcium Total Bilirubin AST ALT Total Creatine Kinase Troponin T NT-Pro-B Natriuret Pep Total Protein Albumin LDL Cholesterol Direct HDL Cholesterol TSH Free T4 Arterial Blood Glucose 04/18/21 04/18/21 04/18/21 14:19 16:55 16:55 WBC Hgb 8.3 L Hct 27.7 L MCV MCH MCHC RDW Seg Neuts % (Manual) Lymphocytes % (Manual) Nucleated RBC % Seg Neutrophils # Man Lymphocytes # (Manual) Monocytes # (Manual) PT 18.7 H INR 1.51 H D-Dimer ABG pH POC ABG pCO2 67.4 H POC ABG pO2 150.6 H ABG pO2 ABG HCO3 ABG Base Excess ABG Hemoglobin 9.3 L ABG Oxyhemoglobin ABG Sodium ABG Chloride ABG Glucose 162 H Oxyhemoglobin Carboxyhemoglobin 1.6 H Sodium Potassium Chloride Carbon Dioxide BUN Creatinine Glucose POC Glucose Calcium Ionized Calcium Total Bilirubin AST ALT Total Creatine Kinase Troponin T NT-Pro-B Natriuret Pep Total Protein Albumin LDL Cholesterol Direct HDL Cholesterol TSH Free T4 Arterial Blood Glucose 162 H 04/18/21 04/18/2121 17:40 19:55 19:55 WBC Hgb Hct MCV MCH MCHC RDW Seg Neuts % (Manual) Lymphocytes % (Manual) Nucleated RBC % Seg Neutrophils # Man Lymphocytes # (Manual) Monocytes # (Manual) PT INR D-Dimer ABG pH POC ABG pCO2 POC ABG pO2 ABG pO2 ABG HCO3 ABG Base Excess ABG Hemoglobin ABG Oxyhemoglobin ABG Sodium ABG Chloride ABG Glucose Oxyhemoglobin Carboxyhemoglobin Sodium Potassium Chloride Carbon Dioxide BUN Creatinine Glucose POC Glucose 151 H Calcium Ionized Calcium Total Bilirubin AST ALT Total Creatine Kinase Troponin T NT-Pro-B Natriuret Pep Total Protein Albumin LDL Cholesterol Direct HDL Cholesterol TSH 6.140 H Free T4 0.67 L Arterial Blood Glucose 04/18/21 04/19/21 04/19/21 22:19 04:40 04:40 WBC Hgb 8.1 L Hct 27.5 L MCV 73 L MCH 22 L MCHC RDW 25.4 H Seg Neuts % (Manual) Lymphocytes % (Manual) Nucleated RBC % Seg Neutrophils # Man Lymphocytes # (Manual) Monocytes # (Manual) PT INR D-Dimer ABG pH POC ABG pCO2 POC ABG pO2 ABG pO2 ABG HCO3 ABG Base Excess ABG Hemoglobin ABG Oxyhemoglobin ABG Sodium ABG Chloride ABG Glucose Oxyhemoglobin Carboxyhemoglobin Sodium Potassium Chloride Carbon Dioxide 37 H D BUN 76 H Creatinine 1.6 H Glucose 173 H POC Glucose 157 H Calcium Ionized Calcium Total Bilirubin AST ALT Total Creatine Kinase Troponin T NT-Pro-B Natriuret Pep Total Protein Albumin LDL Cholesterol Direct HDL Cholesterol TSH Free T4 Arterial Blood Glucose 04/19/21 11:36 WBC Hgb Hct MCV MCH MCHC RDW Seg Neuts % (Manual) Lymphocytes % (Manual) Nucleated RBC % Seg Neutrophils # Man Lymphocytes # (Manual) Monocytes # (Manual) PT INR D-Dimer ABG pH POC ABG pCO2 POC ABG pO2 ABG pO2 ABG HCO3 ABG Base Excess ABG Hemoglobin ABG Oxyhemoglobin ABG Sodium ABG Chloride ABG Glucose Oxyhemoglobin Carboxyhemoglobin Sodium Potassium Chloride Carbon Dioxide BUN Creatinine Glucose POC Glucose 168 H Calcium Ionized Calcium Total Bilirubin AST ALT Total Creatine Kinase Troponin T NT-Pro-B Natriuret Pep Total Protein Albumin LDL Cholesterol Direct HDL Cholesterol TSH Free T4 Arterial Blood Glucose Allied health notes reviewed: nursing
[2021-04-19] MEDS ORDERED: hydrALAZINE 20 MG/1 ML INJ ONE (16:50)
[2021-04-19] MEDS: QUEtiapine 25 MG TAB PO SCH (21:18)
[2021-04-19] MEDS: HALOPERIDOL LACTATE 5 MG/1 ML INJ IV PRN (22:52)
[2021-04-20 05:05] LABS: Calcium 9.2 mg/dL (8.4-10.2)
[2021-04-20] MEDS: HEPARIN 5,000 UNIT/1 ML VIAL SUB-Q SCH ×3 (05:11→21:44)
[2021-04-20] MEDS: BENZONATATE 100 MG CAP PO SCH ×3 (05:11→21:43)
[2021-04-20] MEDS: LEVOTHYROXINE 100 MCG INJ IV SCH (05:11)
[2021-04-20] MEDS: IPRATROPIUM/ALBUTEROL SULFATE 3 ML AMPUL.NEB IH SCH ×3 (07:52→20:52)
--- NOTE | 2021-04-20 09:28 | Progress Note ---
Assessment and Plan Assessment Acute kidney injury, unknown baseline. Renal ultrasound notes poor visualization due to body habitus. Hypernatremia Hyperkalemia Hypocalcemia Morbid obesity Acute hypoxemic and hypercapnic respiratory failure Acute exacerbation of CHF (congestive heart failure) Hypertension Sleep apnea Recommendations Na higher today at 147, off sodium tabs Increase free water intake as able, if unable to drink, will consider D5W Creatinine improving to 1.3 echo noted, likely diastolic disease Avoid diuresis if able given hypernatremia, note good urine output Maintain MAP more than 65 Hold SUNG/ARB at this time Renally dose medications Avoid nephrotoxins Renal diet Daily renal labs Subjective Date of service: 04/20/21 Principal diagnosis: Ac hypoxemic and hypercapnic resp failure; AE-CHF; Morbid obesity; CLAUDIA/OHS Interval history: Patient was seen for her renal issues- remains on Bipap this AM Nursing, interdisciplinary and consult notes were reviewed Vitals, input and output, medications and labs were reviewed Objective - Exam Narrative Exam: General: Morbid obesity, on Bipap HEENT: Oral mucosa moist Neck: Supple, no JVD Chest: labored breathing on Bipap Heart: RRR, S1 and S2 Abdomen: Soft, nontender Extremity: No peripheral cyanosis, edema Neurological: Awake and alert Dermatology: skin intact Psych: Calm and cooperative Musculoskeletal: No joint effusion - Vital Signs Vital signs: Vital Signs - 12hr 04/19/21 04/19/21 04/19/21 22:00 22:08 23:00 Temperature Pulse Rate 101 H 103 H 101 H Pulse Rate [ Anterior Bilateral Throughout] Pulse Rate [ From Monitor] Respiratory 15 30 H 22 Rate Respiratory Rate [Anterior Bilateral Throughout] Blood Pressure 167/100 167/100 147/91 O2 Sat by Pulse 99 97 98 Oximetry 04/19/21 04/20/21 04/20/21 23:05 00:00 00:01 Temperature 97.8 F Pulse Rate 102 H 105 H 106 H Pulse Rate [ Anterior Bilateral Throughout] Pulse Rate [ 105 H From Monitor] Respiratory 21 40 H 18 Rate Respiratory Rate [Anterior Bilateral Throughout] Blood Pressure 147/91 147/91 O2 Sat by Pulse 98 100 94 Oximetry 04/20/21 04/20/21 04/20/21 01:01 01:53 01:56 Temperature Pulse Rate 101 H Pulse Rate [ Anterior Bilateral Throughout] Pulse Rate [ From Monitor] Respiratory 20 Rate Respiratory Rate [Anterior Bilateral Throughout] Blood Pressure 147/91 O2 Sat by Pulse 97 95 98 Oximetry 04/20/21 04/20/21 04/20/21 02:01 03:01 04:00 Temperature 97.9 F Pulse Rate 101 H 106 H 94 H Pulse Rate [ Anterior Bilateral Throughout] Pulse Rate [ 94 H From Monitor] Respiratory 19 18 18 Rate Respiratory Rate [Anterior Bilateral Throughout] Blood Pressure 147/91 147/91 O2 Sat by Pulse 97 92 100 Oximetry 04/20/21 04/20/21 04/20/21 04:01 05:01 06:00 Temperature 97.6 F Pulse Rate 94 H 103 H Pulse Rate [ Anterior Bilateral Throughout] Pulse Rate [ From Monitor] Respiratory 17 20 Rate Respiratory Rate [Anterior Bilateral Throughout] Blood Pressure 147/91 147/91 O2 Sat by Pulse 98 99 Oximetry 04/20/21 04/20/21 06:01 07:52 Temperature Pulse Rate 104 H Pulse Rate [ 103 H Anterior Bilateral Throughout] Pulse Rate [ From Monitor] Respiratory 26 H Rate Respiratory 20 Rate [Anterior Bilateral Throughout] Blood Pressure 147/91 O2 Sat by Pulse 97 99 Oximetry - Lab 04/19/21 04:40 04/20/21 04:22 Most recent lab results ABG pH 7.382 (7.320-7.450) 04/18/21 14:19 ABG pCO2 86.9 mm Hg 04/13/21 18:40 ABG pO2 81.8 mm Hg (80.0-90.0) 04/13/21 18:40 ABG HCO3 36.2 mmol/L (20.0-26.0) H 04/13/21 18:40 ABG O2 Saturation 99.4 (0-100) 04/18/21 14:19 Calcium 9.2 mg/dL (8.4-10.2) 04/20/21 04:22 Urine Sodium 16 mmol/L 04/09/21 18:46 Medications & Allergies - Medications Allergies/Adverse Reactions: Allergies No Known Allergies Allergy (Unverified 01/27/17 11:17) Home Medications: Home Medications Medication Instructions Recorded Confirmed Last Taken Type Acetaminophen [Acetaminophen TAB] 325 mg PO Q4H PRN #30 tablet 06/30/17 08/08/20 Unknown Rx ALBUTEROL NEB's [Proventil 0.083% 2.5 mg IH Q3HRT PRN #30 day 08/10/20 Unknown Rx NEBS] Albuterol Mdi (or & Nicu Only) 2 puff IH QID PRN #1 inhalation 08/10/20 Unknown Rx [ProAir HFA Inhaler] Azithromycin [Zithromax Z-BIN] 0 mg PO DAILY #1 tab 08/10/20 Unknown Rx Benzonatate [Tessalon Perles] 100 mg PO Q8HR #15 capsule 08/10/20 Unknown Rx Famotidine [Pepcid] 20 mg PO BID #14 tablet 08/10/20 Unknown Rx Ipratropium/Albuterol Sulfate 1 ampul IH TIDRT #30 day 08/10/20 Unknown Rx [DUONEB *Not for PRN Use*] hydroCHLOROthiazide [HCTZ] 25 mg PO QDAY tablet 08/10/20 Unknown Rx hydroCHLOROthiazide [HCTZ] 25 mg PO QDAY #30 tablet 08/10/20 Unknown Rx methylPREDNISolone [Medrol 4MG 4 mg PO DAILY #1 tab.ds.pk 08/10/20 Unknown Rx DOSEPAK (21 tabs)] Active Medications: Generic Name Dose Route Start Last Admin Trade Name Freq PRN Reason Stop Dose Admin Acetaminophen 650 mg 04/08/21 03:00 04/17/21 06:42 Acetaminophen 325 Mg Tab PO 650 mg Q4H PRN Administration Pain MILD(1-3)/Fever >100.5/BROWN Albuterol 2.5 mg 04/08/21 03:00 Albuterol 2.5 Mg/3 Ml Nebu IH Q4HRT PRN Shortness Of Breath Albuterol/Ipratropium 1 ampul 04/08/21 08:00 04/20/21 07:52 Ipratropium/Albuterol Sulfate 3 Ml Ampul.Neb IH 1 ampul TIDRT EKATERINA Administration Aspirin 325 mg 04/09/21 10:00 04/19/21 10:00 Aspirin Ec 325 Mg Tab PO 325 mg QDAY EKATERINA Administration Atorvastatin Calcium 40 mg 04/08/21 22:00 04/19/21 21:18 Atorvastatin 40 Mg Tab PO 40 mg QHS EKATERINA Administration Benzonatate 100 mg 04/08/21 06:00 04/20/21 05:11 Benzonatate 100 Mg Cap PO Not Given Q8HR EKATERINA Guaifenesin 200 mg 04/12/21 14:47 04/17/21 06:43 Guaifenesin 100 Mg/5 Ml Oral Liqd PO 200 mg Q4H PRN Administration Cough Haloperidol Lactate 5 mg 04/18/21 16:27 04/19/21 22:52 Haloperidol Lactate 5 Mg/1 Ml Inj IV 5 mg Q6H PRN Administration Agitation Heparin Sodium (Porcine) 5,000 unit 04/18/21 14:00 04/20/21 05:11 Heparin 5,000 Unit/1 Ml Vial SUB-Q 5,000 unit Q8HR EKATERINA Administration Hydralazine HCl 10 mg 04/19/21 17:25 Hydralazine 20 Mg/1 Ml Inj IV Q6H PRN Blood Pressure Levothyroxine Sodium 100 mcg 04/20/21 06:00 04/20/21 05:11 Levothyroxine 100 Mcg Inj IV 100 mcg DAILY@0600 EKATERINA Administration Methylprednisolone Sodium Succinate 20 mg 04/16/21 10:00 04/19/21 21:18 Methylprednisolone Sod Succinate 40 Mg/1 Ml Inj IV 20 mg Q12HR EKATERINA Administration Nitroglycerin 0.4 mg 04/08/21 03:00 Nitroglycerin 0.4 Mg Tab Subl SL Q5M PRN Chest Pain Nystatin 1 applic 04/08/21 18:00 04/19/21 21:36 Nystatin Powder 15 Gm TP 1 applic BID EKATERINA Administration Ondansetron HCl 4 mg 04/08/21 03:00 04/15/21 23:51 Ondansetron 4 Mg/2 Ml Inj IV 4 mg Q8H PRN Administration Nausea And Vomiting Oxycodone/Acetaminophen 1 tab 04/08/21 03:00 04/17/21 21:19 Oxycodone /Acetaminophen 5-325mg Tab PO 1 tab Q6H PRN Administration Pain, Moderate (4-6) Pantoprazole Sodium 40 mg 04/16/21 10:00 04/19/21 10:00 Pantoprazole 40 Mg Inj IV 40 mg QDAY EKATERINA Administration Quetiapine Fumarate 75 mg 04/18/21 22:00 04/19/21 21:18 Quetiapine 25 Mg Tab PO 75 mg QHS EKATERINA Administration Sodium Chloride 10 ml 04/08/21 10:00 04/19/21 21:36 Sodium Chloride 0.9% 10 Ml Flush Syringe IV 10 ml BID EKATERINA Administration Sodium Chloride 10 ml 04/08/21 03:00 Sodium Chloride 0.9% 10 Ml Flush Syringe IV PRN PRN LINE FLUSH Tramadol HCl 50 mg 04/08/21 03:00 Tramadol 50 Mg Tab PO Q6H PRN Pain, Moderate (4-6)
[2021-04-20] MEDS: NYSTATIN POWDER 15 GM TP SCH ×2 (10:30→21:44)
[2021-04-20] MEDS: PANTOPRAZOLE 40 MG INJ IV SCH (10:41)
[2021-04-20] MEDS: ASPIRIN EC 325 MG TAB PO SCH (10:41)
[2021-04-20] MEDS: methylPREDNISolone Sod Succinate 40 MG/1 ML INJ IV SCH ×2 (10:42→21:43)
--- NOTE | 2021-04-20 12:57 | Progress Note ---
Assessment and Plan 35 years old female with history of morbid obesity, hypertension, asthma , sleep apnea was brought to the emergency room because of shortness of breath, edema, generalized malaise, fatigue, and weakness for last couple of days. She states she just does not feel well. She has a headache. She states her legs are swollen. She feels as though she is retaining fluid. She states that she went to her regular doctors on the . They tested her for Covid. It was negative. She was told to go see a ice cream vault worker. She is not seen a car diologist as of yet. She came in here because she was not feeling well and did not know what to do. She has had no sick contacts. In the emergency room patient is found to have acute CHF exacerbation patient proBNP is 7573 also patient cardiac enzyme is elevated troponin is 0.043. Patient blood glucose also 55 patient is hypoglycemic Patients present blood sugur 130. Patient is awake. Resting on 4L O2 saturation 99%. BIPAP 20/8, rate 30, FIO2 40% and stand-by in the room. Patient afebrile. No leukocytosis. Blood pressure 160/107, Pulse 105 ABG on FIO2 45% ABG pH 7.234 (7.320-7.450) L 04/17/21 09:47 POC ABG pCO2 90.5 mmHg (32.0-48.0) H 04/17/21 09:47 ABG pCO2 86.9 mm Hg 04/13/21 18:40 POC ABG pO2 139.4 mmHg (83-108) H 04/17/21 09:47 ABG pO2 81.8 mm Hg (80.0-90.0) 04/13/21 18:40 POC ABG HCO3 37.4 04/17/21 09:47 ABG O2 Saturation 99.2 (0-100) 04/17/21 09:47 Patients D dimer 04/17/21 : 5410.10 Patient presently on albuterol/atrovent aerosol treatments q 6 hours, Subcutaneous Heparin, Protonix, and I/V SoluMedrol. I spent critical care time of 35 minutes, review the chart, examine the patient, review lab results, talking to the nursing staff and respiratory therapy and work-up plan of treatment in this critically ill morbidly Obese patient. - Patient Problems (1) Acute respiratory failure with hypoxia and hypercapnia Current Visit: Yes Status: Acute Plan to address problem: On 4L O2 Saturation 99%. BIPAP 20/8, rate 30, FIO2 40%. Stand-by. Albuterol/atrovent aerosol treatments. Continue Solumedrol Contibue S/C Heparin. Continue Protonix (2) Acute exacerbation of CHF (congestive heart failure) Current Visit: Yes Status: Acute Plan to address problem: Management as per cardiology. (3) Hypertension Current Visit: Yes Status: Acute Plan to address problem: Management as per primary care. (4) Morbid obesity with BMI of 70 and over, adult Current Visit: No Status: Acute Plan to address problem: Weight reduction diet. Mobility protocol Fall precautions. (5) Obesity hypoventilation syndrome Current Visit: No Status: Acute Plan to address problem: BIPAP 20/8, rate 30, FIO2 40%. (6) Sleep apnea Current Visit: No Status: Acute Plan to address problem: BIPAP 20/8, rate 30, FIO2 40%. Sleep study if she can as out patient. Subjective Date of service: 04/20/21 Principal diagnosis: Ac hypoxemic and hypercapnic resp failure; AE-CHF; Morbid obesity; CLAUDIA/OHS Interval history: 35 years old female with history of morbid obesity, hypertension, asthma COPD sleep apnea was brought to the emergency room because of shortness of breath, edema, generalized malaise, fatigue, and weakness for last couple of days. She states she just does not feel well. She has a headache. She states her legs are swollen. She feels as though she is retaining fluid. She states that she went to her regular doctors on the . They tested her for Covid. It was negative. She was told to go see a ice cream vault worker. She is not seen a ice cream vault worker as of yet. She came in here because she was not feeling well and did not know what to do. She has had no sick contacts. In the emergency room patient is found to have acute CHF exacerbation patient proBNP is 7573 also patient cardiac enzyme is elevated troponin is 0.043. Patient blood glucose also 55 patient is hypoglycemic. Patients present blood sugur 130. Patient is awake. Resting on 4L O2 saturation 99%. BIPAP 20/8, rate 30, FIO2 40% and stand-by in the room. Patient afebrile. No leukocytosis. Blood pressure 160/107, Pulse 105 ABG on FIO2 45% ABG pH 7.234 (7.320-7.450) L 04/17/21 09:47 POC ABG pCO2 90.5 mmHg (32.0-48.0) H 04/17/21 09:47 ABG pCO2 86.9 mm Hg 04/13/21 18:40 POC ABG pO2 139.4 mmHg (83-108) H 04/17/21 09:47 ABG pO2 81.8 mm Hg (80.0-90.0) 04/13/21 18:40 POC ABG HCO3 37.4 04/17/21 09:47 ABG O2 Saturation 99.2 (0-100) 04/17/21 09:47 Patients D dimer 04/17/21 : 5410.10 Patient presently on albuterol/atrovent aerosol treatments q 6 hours, subcutaneous Heparin, Protonix, and I/V SoluMedrol. Objective Vital Signs - 12hr 04/20/21 04/20/21 04/20/21 01:01 01:53 01:56 Temperature Pulse Rate 101 H Pulse Rate [ Anterior Bilateral Throughout] Pulse Rate [ From Monitor] Respiratory 20 Rate Respiratory Rate [Anterior Bilateral Throughout] Blood Pressure 147/91 O2 Sat by Pulse 97 95 98 Oximetry 04/20/21 04/20/21 04/20/21 02:01 03:01 04:00 Temperature 97.9 F Pulse Rate 101 H 106 H 94 H Pulse Rate [ Anterior Bilateral Throughout] Pulse Rate [ 94 H From Monitor] Respiratory 19 18 18 Rate Respiratory Rate [Anterior Bilateral Throughout] Blood Pressure 147/91 147/91 O2 Sat by Pulse 97 92 100 Oximetry 04/20/21 04/20/21 04/20/21 04:01 05:01 06:00 Temperature 97.6 F Pulse Rate 94 H 103 H Pulse Rate [ Anterior Bilateral Throughout] Pulse Rate [ From Monitor] Respiratory 17 20 Rate Respiratory Rate [Anterior Bilateral Throughout] Blood Pressure 147/91 147/91 O2 Sat by Pulse 98 99 Oximetry 04/20/21 04/20/21 04/20/21 06:01 07:01 07:52 Temperature Pulse Rate 104 H 107 H Pulse Rate [ 103 H Anterior Bilateral Throughout] Pulse Rate [ From Monitor] Respiratory 26 H 15 Rate Respiratory 20 Rate [Anterior Bilateral Throughout] Blood Pressure 147/91 147/91 O2 Sat by Pulse 97 75 L 99 Oximetry 04/20/21 04/20/21 04/20/21 08:00 08:01 09:00 Temperature 98.4 F Pulse Rate 90 103 H 102 H Pulse Rate [ Anterior Bilateral Throughout] Pulse Rate [ From Monitor] Respiratory 13 18 Rate Respiratory Rate [Anterior Bilateral Throughout] Blood Pressure 147/91 160/98 O2 Sat by Pulse 99 100 Oximetry 04/20/21 04/20/21 04/20/21 10:00 11:00 12:00 Temperature 98.3 F Pulse Rate 104 H 102 H Pulse Rate [ Anterior Bilateral Throughout] Pulse Rate [ From Monitor] Respiratory 16 31 H Rate Respiratory Rate [Anterior Bilateral Throughout] Blood Pressure 153/107 160/107 O2 Sat by Pulse 100 100 Oximetry Constitutional: no acute distress, alert, other (young extremely obese female with mildly increased respiratory effort at rest) Eyes: non-icteric ENT: oropharynx moist, other (BIPAP FFM) Neck: supple, no lymphadenopathy, no JVD Effort: mildly labored Ascultation: Bilateral: diminished breath sounds, rhonchi Percussion: Bilateral: not dull Cardiovascular: regular rate and rhythm Gastrointestinal: normoactive bowel sounds, soft, non-tender, non-distended (protuberant) Integumentary: rash (stasis dermatitis type), other (Stasis dermatititis on legs and abdomen; see [facility] notes for full details) Extremities: pulses normal, no ischemia or petechiae, edema (2+), other (stasis dermatitis) Neurologic: non-focal exam (grossly), pupils equal and round, CN II-XII normal Psychiatric: depressed CBC and BMP: 04/19/21 04:40 04/20/21 04:22 ABG, PT/INR, D-dimer: ABG ABG pH 7.382 (7.320-7.450) 04/18/21 14:19 POC ABG pCO2 67.4 mmHg (32.0-48.0) H 04/18/21 14:19 ABG pCO2 86.9 mm Hg 04/13/21 18:40 POC ABG pO2 150.6 mmHg (83-108) H 04/18/21 14:19 ABG pO2 81.8 mm Hg (80.0-90.0) 04/13/21 18:40 POC ABG HCO3 39.2 04/18/21 14:19 ABG O2 Saturation 99.4 (0-100) 04/18/21 14:19 PT/INR, D-dimer PT 18.7 Sec. (12.2-14.9) H 04/18/21 16:55 INR 1.51 (0.87-1.13) H 04/18/21 16:55 D-Dimer 5410.10 ng/mlDDU (0-234) H 04/17/21 16:03 Abnormal lab findings: Abnormal Labs 04/07/21 04/07/21 04/08/21 22:04 22:04 00:18 WBC 17.7 H Hgb 9.1 L Hct MCV 77 L MCH 21 L MCHC 27 L RDW 24.3 H Seg Neuts % (Manual) Lymphocytes % (Manual) Nucleated RBC % Seg Neutrophils # Man Lymphocytes # (Manual) Monocytes # (Manual) PT INR D-Dimer ABG pH POC ABG pCO2 POC ABG pO2 ABG pO2 ABG HCO3 ABG Base Excess ABG Hemoglobin ABG Oxyhemoglobin ABG Sodium ABG Chloride ABG Glucose Oxyhemoglobin Carboxyhemoglobin Sodium 135 L Potassium Chloride 91.0 L Carbon Dioxide 17 L BUN Creatinine 1.4 H Glucose 55 L POC Glucose 49 L Calcium Ionized Calcium Total Bilirubin AST ALT Total Creatine Kinase Troponin T 0.043 H NT-Pro-B Natriuret Pep 7573 H Total Protein Albumin LDL Cholesterol Direct 47 L HDL Cholesterol 25 L TSH Free T4 Arterial Blood Glucose 04/08/21 04/08/21 04/08/21 04:03 04:03 09:22 WBC 24.3 H Hgb 9.3 L Hct MCV 74 L MCH 21 L MCHC 29 L RDW 23.1 H Seg Neuts % (Manual) 78.0 H Lymphocytes % (Manual) 7.0 L Nucleated RBC % 1.0 H Seg Neutrophils # Man 19.0 H Lymphocytes # (Manual) Monocytes # (Manual) 1.0 H PT INR D-Dimer ABG pH POC ABG pCO2 POC ABG pO2 ABG pO2 ABG HCO3 ABG Base Excess ABG Hemoglobin ABG Oxyhemoglobin ABG Sodium ABG Chloride ABG Glucose Oxyhemoglobin Carboxyhemoglobin Sodium 134 L Potassium Chloride 91.2 L Carbon Dioxide BUN Creatinine 1.8 H Glucose POC Glucose Calcium Ionized Calcium Total Bilirubin AST ALT Total Creatine Kinase Troponin T 0.099 H NT-Pro-B Natriuret Pep Total Protein Albumin LDL Cholesterol Direct HDL Cholesterol TSH Free T4 Arterial Blood Glucose 04/08/21 04/08/21 04/09/21 13:03 20:28 04:52 WBC 20.9 H Hgb 8.5 L Hct 30.0 L MCV 73 L MCH 21 L MCHC 28 L RDW 23.9 H Seg Neuts % (Manual) 77.0 H Lymphocytes % (Manual) 1.0 L Nucleated RBC % 1.0 H Seg Neutrophils # Man 16.1 H Lymphocytes # (Manual) 0.2 L Monocytes # (Manual) PT INR D-Dimer ABG pH POC ABG pCO2 POC ABG pO2 ABG pO2 ABG HCO3 ABG Base Excess ABG Hemoglobin ABG Oxyhemoglobin ABG Sodium ABG Chloride ABG Glucose Oxyhemoglobin Carboxyhemoglobin Sodium Potassium Chloride Carbon Dioxide BUN Creatinine Glucose POC Glucose 115 H Calcium Ionized Calcium Total Bilirubin AST ALT Total Creatine Kinase Troponin T 0.078 H D NT-Pro-B Natriuret Pep Total Protein Albumin LDL Cholesterol Direct HDL Cholesterol TSH Free T4 Arterial Blood Glucose 04/09/21 04/09/21 04/09/21 04:52 08:46 11:50 WBC Hgb Hct MCV MCH MCHC RDW Seg Neuts % (Manual) Lymphocytes % (Manual) Nucleated RBC % Seg Neutrophils # Man Lymphocytes # (Manual) Monocytes # (Manual) PT INR D-Dimer ABG pH POC ABG pCO2 POC ABG pO2 ABG pO2 ABG HCO3 ABG Base Excess ABG Hemoglobin ABG Oxyhemoglobin ABG Sodium ABG Chloride ABG Glucose Oxyhemoglobin Carboxyhemoglobin Sodium 129 L Potassium 5.6 H Chloride 88.6 L Carbon Dioxide BUN 27 H Creatinine 2.4 H Glucose 121 H POC Glucose 139 H 156 H Calcium 7.7 L Ionized Calcium Total Bilirubin AST ALT Total Creatine Kinase Troponin T NT-Pro-B Natriuret Pep Total Protein Albumin LDL Cholesterol Direct HDL Cholesterol TSH Free T4 Arterial Blood Glucose 04/09/21 04/09/21 04/09/21 15:46 16:58 22:08 WBC Hgb Hct MCV MCH MCHC RDW Seg Neuts % (Manual) Lymphocytes % (Manual) Nucleated RBC % Seg Neutrophils # Man Lymphocytes # (Manual) Monocytes # (Manual) PT INR D-Dimer ABG pH POC ABG pCO2 POC ABG pO2 ABG pO2 ABG HCO3 ABG Base Excess ABG Hemoglobin ABG Oxyhemoglobin ABG Sodium ABG Chloride ABG Glucose Oxyhemoglobin Carboxyhemoglobin Sodium 128 L Potassium 5.5 H Chloride 88.1 L Carbon Dioxide BUN 33 H Creatinine 2.7 H Glucose 172 H POC Glucose 187 H 186 H Calcium 7.3 L Ionized Calcium Total Bilirubin AST ALT Total Creatine Kinase Troponin T NT-Pro-B Natriuret Pep Total Protein Albumin LDL Cholesterol Direct HDL Cholesterol TSH Free T4 Arterial Blood Glucose 04/09/21 04/10/21 04/10/21 23:15 02:20 07:39 WBC Hgb Hct MCV MCH MCHC RDW Seg Neuts % (Manual) Lymphocytes % (Manual) Nucleated RBC % Seg Neutrophils # Man Lymphocytes # (Manual) Monocytes # (Manual) PT INR D-Dimer ABG pH POC ABG pCO2 POC ABG pO2 ABG pO2 ABG HCO3 ABG Base Excess ABG Hemoglobin ABG Oxyhemoglobin ABG Sodium ABG Chloride ABG Glucose Oxyhemoglobin Carboxyhemoglobin Sodium 128 L Potassium 5.2 H Chloride 88.6 L Carbon Dioxide BUN 39 H Creatinine 3.1 H Glucose 171 H POC Glucose 168 H Calcium 7.2 L Ionized Calcium 3.6 L Total Bilirubin AST ALT Total Creatine Kinase Troponin T NT-Pro-B Natriuret Pep Total Protein Albumin LDL Cholesterol Direct HDL Cholesterol TSH Free T4 Arterial Blood Glucose 04/10/21 04/10/21 04/10/21 10:04 11:37 17:18 WBC Hgb Hct MCV MCH MCHC RDW Seg Neuts % (Manual) Lymphocytes % (Manual) Nucleated RBC % Seg Neutrophils # Man Lymphocytes # (Manual) Monocytes # (Manual) PT INR D-Dimer ABG pH POC ABG pCO2 POC ABG pO2 ABG pO2 ABG HCO3 ABG Base Excess ABG Hemoglobin ABG Oxyhemoglobin ABG Sodium ABG Chloride ABG Glucose Oxyhemoglobin Carboxyhemoglobin Sodium Potassium Chloride Carbon Dioxide BUN Creatinine Glucose POC Glucose 170 H 152 H Calcium Ionized Calcium Total Bilirubin AST ALT Total Creatine Kinase 1712 H Troponin T NT-Pro-B Natriuret Pep Total Protein Albumin LDL Cholesterol Direct HDL Cholesterol TSH Free T4 Arterial Blood Glucose 04/10/21 04/10/21 04/11/21 19:38 22:02 05:48 WBC Hgb Hct MCV MCH MCHC RDW Seg Neuts % (Manual) Lymphocytes % (Manual) Nucleated RBC % Seg Neutrophils # Man Lymphocytes # (Manual) Monocytes # (Manual) PT INR D-Dimer ABG pH POC ABG pCO2 POC ABG pO2 ABG pO2 ABG HCO3 ABG Base Excess ABG Hemoglobin ABG Oxyhemoglobin ABG Sodium ABG Chloride ABG Glucose Oxyhemoglobin Carboxyhemoglobin Sodium 128 L 124 L Potassium 5.8 H D Chloride 89.6 L 89.4 L Carbon Dioxide BUN 47 H 53 H Creatinine 3.0 H 2.8 H Glucose 165 H 150 H POC Glucose 147 H Calcium 6.9 L 7.2 L Ionized Calcium Total Bilirubin AST ALT Total Creatine Kinase Troponin T NT-Pro-B Natriuret Pep Total Protein Albumin LDL Cholesterol Direct HDL Cholesterol TSH Free T4 Arterial Blood Glucose 04/11/21 04/11/21 04/11/21 08:48 11:35 19:12 WBC Hgb Hct MCV MCH MCHC RDW Seg Neuts % (Manual) Lymphocytes % (Manual) Nucleated RBC % Seg Neutrophils # Man Lymphocytes # (Manual) Monocytes # (Manual) PT INR D-Dimer ABG pH POC ABG pCO2 POC ABG pO2 ABG pO2 ABG HCO3 ABG Base Excess ABG Hemoglobin ABG Oxyhemoglobin ABG Sodium ABG Chloride ABG Glucose Oxyhemoglobin Carboxyhemoglobin Sodium 128 L Potassium Chloride 89.7 L Carbon Dioxide BUN 53 H Creatinine 2.4 H Glucose 159 H POC Glucose 152 H 152 H Calcium 7.1 L Ionized Calcium Total Bilirubin AST ALT Total Creatine Kinase Troponin T NT-Pro-B Natriuret Pep Total Protein Albumin LDL Cholesterol Direct HDL Cholesterol TSH Free T4 Arterial Blood Glucose 04/11/21 04/12/21 04/12/21 22:03 05:03 07:41 WBC Hgb Hct MCV MCH MCHC RDW Seg Neuts % (Manual) Lymphocytes % (Manual) Nucleated RBC % Seg Neutrophils # Man Lymphocytes # (Manual) Monocytes # (Manual) PT INR D-Dimer ABG pH POC ABG pCO2 POC ABG pO2 ABG pO2 ABG HCO3 ABG Base Excess ABG Hemoglobin ABG Oxyhemoglobin ABG Sodium ABG Chloride ABG Glucose Oxyhemoglobin Carboxyhemoglobin Sodium 134 L Potassium Chloride 92.9 L Carbon Dioxide 33 H D BUN 54 H Creatinine 2.4 H Glucose 150 H POC Glucose 152 H 144 H Calcium 7.2 L Ionized Calcium Total Bilirubin AST ALT Total Creatine Kinase Troponin T NT-Pro-B Natriuret Pep Total Protein Albumin LDL Cholesterol Direct HDL Cholesterol TSH Free T4 Arterial Blood Glucose 04/12/21 04/12/21 04/12/21 11:38 14:11 17:02 WBC 14.7 H Hgb 8.7 L Hct 29.8 L MCV 74 L MCH 22 L MCHC 29 L RDW 24.9 H Seg Neuts % (Manual) 86.0 H Lymphocytes % (Manual) 6.0 L Nucleated RBC % Seg Neutrophils # Man 12.6 H Lymphocytes # (Manual) 0.9 L Monocytes # (Manual) PT INR D-Dimer ABG pH POC ABG pCO2 POC ABG pO2 ABG pO2 ABG HCO3 ABG Base Excess ABG Hemoglobin ABG Oxyhemoglobin ABG Sodium ABG Chloride ABG Glucose Oxyhemoglobin Carboxyhemoglobin Sodium Potassium Chloride Carbon Dioxide BUN Creatinine Glucose POC Glucose 151 H 154 H Calcium Ionized Calcium Total Bilirubin AST ALT Total Creatine Kinase Troponin T NT-Pro-B Natriuret Pep Total Protein Albumin LDL Cholesterol Direct HDL Cholesterol TSH Free T4 Arterial Blood Glucose 04/12/21 04/13/21 04/13/21 23:14 05:03 10:00 WBC Hgb Hct MCV MCH MCHC RDW Seg Neuts % (Manual) Lymphocytes % (Manual) Nucleated RBC % Seg Neutrophils # Man Lymphocytes # (Manual) Monocytes # (Manual) PT INR D-Dimer ABG pH 7.150 L* POC ABG pCO2 POC ABG pO2 ABG pO2 91.8 H ABG HCO3 37.2 H ABG Base Excess 7.1 H ABG Hemoglobin 7.1 L ABG Oxyhemoglobin ABG Sodium ABG Chloride ABG Glucose Oxyhemoglobin 93.4 L Carboxyhemoglobin Sodium 134 L Potassium Chloride 91.3 L Carbon Dioxide 33 H BUN 63 H Creatinine 2.2 H Glucose 159 H POC Glucose 151 H Calcium 7.8 L Ionized Calcium Total Bilirubin AST ALT Total Creatine Kinase Troponin T NT-Pro-B Natriuret Pep Total Protein Albumin LDL Cholesterol Direct HDL Cholesterol TSH Free T4 Arterial Blood Glucose 04/13/21 04/13/21 04/13/21 12:39 16:37 18:40 WBC Hgb Hct MCV MCH MCHC RDW Seg Neuts % (Manual) Lymphocytes % (Manual) Nucleated RBC % Seg Neutrophils # Man Lymphocytes # (Manual) Monocytes # (Manual) PT INR D-Dimer ABG pH 7.237 L POC ABG pCO2 POC ABG pO2 ABG pO2 ABG HCO3 36.2 H ABG Base Excess 7.4 H ABG Hemoglobin 7.8 L ABG Oxyhemoglobin ABG Sodium ABG Chloride ABG Glucose Oxyhemoglobin 93.7 L Carboxyhemoglobin Sodium Potassium Chloride Carbon Dioxide BUN Creatinine Glucose POC Glucose 140 H 132 H Calcium Ionized Calcium Total Bilirubin AST ALT Total Creatine Kinase Troponin T NT-Pro-B Natriuret Pep Total Protein Albumin LDL Cholesterol Direct HDL Cholesterol TSH Free T4 Arterial Blood Glucose 04/13/21 04/14/21 04/14/21 23:55 04:27 04:27 WBC Hgb 8.5 L Hct 29.1 L MCV 72 L MCH 21 L MCHC 29 L RDW 24.9 H Seg Neuts % (Manual) Lymphocytes % (Manual) Nucleated RBC % Seg Neutrophils # Man Lymphocytes # (Manual) Monocytes # (Manual) PT INR D-Dimer ABG pH POC ABG pCO2 POC ABG pO2 ABG pO2 ABG HCO3 ABG Base Excess ABG Hemoglobin ABG Oxyhemoglobin ABG Sodium ABG Chloride ABG Glucose Oxyhemoglobin Carboxyhemoglobin Sodium 135 L Potassium Chloride 93.5 L Carbon Dioxide 33 H BUN 68 H Creatinine 1.9 H Glucose 143 H POC Glucose 135 H Calcium 8.1 L Ionized Calcium Total Bilirubin 1.50 H AST 494 H ALT 835 H Total Creatine Kinase Troponin T NT-Pro-B Natriuret Pep Total Protein 9.5 H Albumin 3.1 L LDL Cholesterol Direct HDL Cholesterol TSH Free T4 Arterial Blood Glucose 04/14/21 04/14/21 04/15/21 12:03 17:24 00:19 WBC Hgb Hct MCV MCH MCHC RDW Seg Neuts % (Manual) Lymphocytes % (Manual) Nucleated RBC % Seg Neutrophils # Man Lymphocytes # (Manual) Monocytes # (Manual) PT INR D-Dimer ABG pH 7.291 L POC ABG pCO2 75.5 H POC ABG pO2 76.2 L ABG pO2 ABG HCO3 ABG Base Excess ABG Hemoglobin 9.9 L ABG Oxyhemoglobin 91.0 L ABG Sodium 134.9 L ABG Chloride 93.0 L ABG Glucose 146 H Oxyhemoglobin Carboxyhemoglobin 2.2 H Sodium Potassium Chloride Carbon Dioxide BUN Creatinine Glucose POC Glucose 134 H 136 H Calcium Ionized Calcium Total Bilirubin AST ALT Total Creatine Kinase Troponin T NT-Pro-B Natriuret Pep Total Protein Albumin LDL Cholesterol Direct HDL Cholesterol TSH Free T4 Arterial Blood Glucose 146 H 04/15/21 04/15/21 04/15/21 04:55 04:55 05:29 WBC Hgb 8.0 L Hct 27.1 L MCV 70 L MCH 21 L MCHC RDW 24.3 H Seg Neuts % (Manual) Lymphocytes % (Manual) Nucleated RBC % Seg Neutrophils # Man Lymphocytes # (Manual) Monocytes # (Manual) PT INR D-Dimer ABG pH POC ABG pCO2 POC ABG pO2 ABG pO2 ABG HCO3 ABG Base Excess ABG Hemoglobin ABG Oxyhemoglobin ABG Sodium ABG Chloride ABG Glucose Oxyhemoglobin Carboxyhemoglobin Sodium Potassium Chloride 95.1 L Carbon Dioxide 36 H BUN 63 H Creatinine 1.5 H Glucose 131 H POC Glucose 118 H Calcium 8.3 L Ionized Calcium Total Bilirubin 1.80 H AST 323 H ALT 609 H Total Creatine Kinase Troponin T NT-Pro-B Natriuret Pep Total Protein 9.3 H Albumin 2.9 L LDL Cholesterol Direct HDL Cholesterol TSH Free T4 Arterial Blood Glucose 04/15/21 04/15/21 04/15/21 11:40 18:30 22:44 WBC Hgb Hct MCV MCH MCHC RDW Seg Neuts % (Manual) Lymphocytes % (Manual) Nucleated RBC % Seg Neutrophils # Man Lymphocytes # (Manual) Monocytes # (Manual) PT INR D-Dimer ABG pH POC ABG pCO2 POC ABG pO2 ABG pO2 ABG HCO3 ABG Base Excess ABG Hemoglobin ABG Oxyhemoglobin ABG Sodium ABG Chloride ABG Glucose Oxyhemoglobin Carboxyhemoglobin Sodium Potassium Chloride Carbon Dioxide BUN Creatinine Glucose POC Glucose 139 H 130 H 123 H Calcium Ionized Calcium Total Bilirubin AST ALT Total Creatine Kinase Troponin T NT-Pro-B Natriuret Pep Total Protein Albumin LDL Cholesterol Direct HDL Cholesterol TSH Free T4 Arterial Blood Glucose 04/16/21 04/16/21 04/16/21 04:53 04:53 07:16 WBC 12.5 H Hgb 8.8 L Hct 30.2 L MCV 74 L MCH 21 L MCHC 29 L RDW 24.5 H Seg Neuts % (Manual) Lymphocytes % (Manual) Nucleated RBC % Seg Neutrophils # Man Lymphocytes # (Manual) Monocytes # (Manual) PT INR D-Dimer ABG pH POC ABG pCO2 POC ABG pO2 ABG pO2 ABG HCO3 ABG Base Excess ABG Hemoglobin ABG Oxyhemoglobin ABG Sodium ABG Chloride ABG Glucose Oxyhemoglobin Carboxyhemoglobin Sodium Potassium Chloride 96.9 L Carbon Dioxide 35 H BUN 65 H Creatinine 1.5 H Glucose 142 H POC Glucose 138 H Calcium Ionized Calcium Total Bilirubin 1.50 H AST 251 H ALT 572 H Total Creatine Kinase Troponin T NT-Pro-B Natriuret Pep Total Protein 10.1 H Albumin 3.2 L LDL Cholesterol Direct HDL Cholesterol TSH Free T4 Arterial Blood Glucose 04/16/21 04/16/21 04/16/21 07:32 11:29 14:42 WBC Hgb Hct MCV MCH MCHC RDW Seg Neuts % (Manual) Lymphocytes % (Manual) Nucleated RBC % Seg Neutrophils # Man Lymphocytes # (Manual) Monocytes # (Manual) PT INR D-Dimer ABG pH 7.086 L 7.188 L POC ABG pCO2 142.2 H 99.3 H POC ABG pO2 196.3 H 132.3 H ABG pO2 ABG HCO3 ABG Base Excess ABG Hemoglobin 10.0 L 9.2 L ABG Oxyhemoglobin ABG Sodium ABG Chloride 96.0 L 96.0 L ABG Glucose 147 H 146 H Oxyhemoglobin Carboxyhemoglobin 1.6 H 2.0 H Sodium Potassium Chloride Carbon Dioxide BUN Creatinine Glucose POC Glucose 131 H Calcium Ionized Calcium Total Bilirubin AST ALT Total Creatine Kinase Troponin T NT-Pro-B Natriuret Pep Total Protein Albumin LDL Cholesterol Direct HDL Cholesterol TSH Free T4 Arterial Blood Glucose 147 H 146 H 04/16/21 04/16/21 04/17/21 17:23 22:34 07:44 WBC Hgb Hct MCV MCH MCHC RDW Seg Neuts % (Manual) Lymphocytes % (Manual) Nucleated RBC % Seg Neutrophils # Man Lymphocytes # (Manual) Monocytes # (Manual) PT INR D-Dimer ABG pH POC ABG pCO2 POC ABG pO2 ABG pO2 ABG HCO3 ABG Base Excess ABG Hemoglobin ABG Oxyhemoglobin ABG Sodium ABG Chloride ABG Glucose Oxyhemoglobin Carboxyhemoglobin Sodium Potassium Chloride Carbon Dioxide BUN Creatinine Glucose POC Glucose 117 H 169 H 150 H Calcium Ionized Calcium Total Bilirubin AST ALT Total Creatine Kinase Troponin T NT-Pro-B Natriuret Pep Total Protein Albumin LDL Cholesterol Direct HDL Cholesterol TSH Free T4 Arterial Blood Glucose 04/17/21 04/17/21 04/17/21 08:55 08:55 09:47 WBC Hgb 8.7 L Hct 29.4 L MCV 74 L MCH 22 L MCHC RDW 24.8 H Seg Neuts % (Manual) Lymphocytes % (Manual) Nucleated RBC % Seg Neutrophils # Man Lymphocytes # (Manual) Monocytes # (Manual) PT INR D-Dimer ABG pH 7.234 L POC ABG pCO2 90.5 H POC ABG pO2 139.4 H ABG pO2 ABG HCO3 ABG Base Excess ABG Hemoglobin 9.5 L ABG Oxyhemoglobin ABG Sodium ABG Chloride 97.0 L ABG Glucose 179 H Oxyhemoglobin Carboxyhemoglobin 1.7 H Sodium Potassium Chloride 94.4 L Carbon Dioxide 37 H BUN 68 H Creatinine 1.5 H Glucose 178 H POC Glucose Calcium Ionized Calcium Total Bilirubin 1.60 H AST 172 H ALT 437 H Total Creatine Kinase Troponin T NT-Pro-B Natriuret Pep Total Protein 10.1 H Albumin 3.2 L LDL Cholesterol Direct HDL Cholesterol TSH Free T4 Arterial Blood Glucose 179 H 04/17/21 04/17/21 04/17/21 11:39 16:03 17:24 WBC Hgb Hct MCV MCH MCHC RDW Seg Neuts % (Manual) Lymphocytes % (Manual) Nucleated RBC % Seg Neutrophils # Man Lymphocytes # (Manual) Monocytes # (Manual) PT INR D-Dimer 5410.10 H ABG pH POC ABG pCO2 POC ABG pO2 ABG pO2 ABG HCO3 ABG Base Excess ABG Hemoglobin ABG Oxyhemoglobin ABG Sodium ABG Chloride ABG Glucose Oxyhemoglobin Carboxyhemoglobin Sodium Potassium Chloride Carbon Dioxide BUN Creatinine Glucose POC Glucose 161 H 130 H Calcium Ionized Calcium Total Bilirubin AST ALT Total Creatine Kinase Troponin T NT-Pro-B Natriuret Pep Total Protein Albumin LDL Cholesterol Direct HDL Cholesterol TSH Free T4 Arterial Blood Glucose 04/17/21 04/18/21 04/18/21 21:52 10:20 11:58 WBC Hgb Hct MCV MCH MCHC RDW Seg Neuts % (Manual) Lymphocytes % (Manual) Nucleated RBC % Seg Neutrophils # Man Lymphocytes # (Manual) Monocytes # (Manual) PT INR D-Dimer ABG pH POC ABG pCO2 POC ABG pO2 ABG pO2 ABG HCO3 ABG Base Excess ABG Hemoglobin ABG Oxyhemoglobin ABG Sodium ABG Chloride ABG Glucose Oxyhemoglobin Carboxyhemoglobin Sodium 146 H D Potassium Chloride Carbon Dioxide BUN 75 H Creatinine 1.6 H Glucose 158 H POC Glucose 150 H 143 H Calcium Ionized Calcium Total Bilirubin AST ALT Total Creatine Kinase Troponin T NT-Pro-B Natriuret Pep Total Protein Albumin LDL Cholesterol Direct HDL Cholesterol TSH Free T4 Arterial Blood Glucose 04/18/21 04/18/21 04/18/21 14:19 16:55 16:55 WBC Hgb 8.3 L Hct 27.7 L MCV MCH MCHC RDW Seg Neuts % (Manual) Lymphocytes % (Manual) Nucleated RBC % Seg Neutrophils # Man Lymphocytes # (Manual) Monocytes # (Manual) PT 18.7 H INR 1.51 H D-Dimer ABG pH POC ABG pCO2 67.4 H POC ABG pO2 150.6 H ABG pO2 ABG HCO3 ABG Base Excess ABG Hemoglobin 9.3 L ABG Oxyhemoglobin ABG Sodium ABG Chloride ABG Glucose 162 H Oxyhemoglobin Carboxyhemoglobin 1.6 H Sodium Potassium Chloride Carbon Dioxide BUN Creatinine Glucose POC Glucose Calcium Ionized Calcium Total Bilirubin AST ALT Total Creatine Kinase Troponin T NT-Pro-B Natriuret Pep Total Protein Albumin LDL Cholesterol Direct HDL Cholesterol TSH Free T4 Arterial Blood Glucose 162 H 04/18/21 04/18/21 04/18/21 17:40 19:55 19:55 WBC Hgb Hct MCV MCH MCHC RDW Seg Neuts % (Manual) Lymphocytes % (Manual) Nucleated RBC % Seg Neutrophils # Man Lymphocytes # (Manual) Monocytes # (Manual) PT INR D-Dimer ABG pH POC ABG pCO2 POC ABG pO2 ABG pO2 ABG HCO3 ABG Base Excess ABG Hemoglobin ABG Oxyhemoglobin ABG Sodium ABG Chloride ABG Glucose Oxyhemoglobin Carboxyhemoglobin Sodium Potassium Chloride Carbon Dioxide BUN Creatinine Glucose POC Glucose 151 H Calcium Ionized Calcium Total Bilirubin AST ALT Total Creatine Kinase Troponin T NT-Pro-B Natriuret Pep Total Protein Albumin LDL Cholesterol Direct HDL Cholesterol TSH 6.140 H Free T4 0.67 L Arterial Blood Glucose 04/18/21 04/19/21 04/19/21 22:19 04:40 04:40 WBC Hgb 8.1 L Hct 27.5 L MCV 73 L MCH 22 L MCHC RDW 25.4 H Seg Neuts % (Manual) Lymphocytes % (Manual) Nucleated RBC % Seg Neutrophils # Man Lymphocytes # (Manual) Monocytes # (Manual) PT INR D-Dimer ABG pH POC ABG pCO2 POC ABG pO2 ABG pO2 ABG HCO3 ABG Base Excess ABG Hemoglobin ABG Oxyhemoglobin ABG Sodium ABG Chloride ABG Glucose Oxyhemoglobin Carboxyhemoglobin Sodium Potassium Chloride Carbon Dioxide 37 H D BUN 76 H Creatinine 1.6 H Glucose 173 H POC Glucose 157 H Calcium Ionized Calcium Total Bilirubin AST ALT Total Creatine Kinase Troponin T NT-Pro-B Natriuret Pep Total Protein Albumin LDL Cholesterol Direct HDL Cholesterol TSH Free T4 Arterial Blood Glucose 04/19/21 04/19/21 04/19/21 11:36 17:20 21:17 WBC Hgb Hct MCV MCH MCHC RDW Seg Neuts % (Manual) Lymphocytes % (Manual) Nucleated RBC % Seg Neutrophils # Man Lymphocytes # (Manual) Monocytes # (Manual) PT INR D-Dimer ABG pH POC ABG pCO2 POC ABG pO2 ABG pO2 ABG HCO3 ABG Base Excess ABG Hemoglobin ABG Oxyhemoglobin ABG Sodium ABG Chloride ABG Glucose Oxyhemoglobin Carboxyhemoglobin Sodium Potassium Chloride Carbon Dioxide BUN Creatinine Glucose POC Glucose 168 H 174 H 163 H Calcium Ionized Calcium Total Bilirubin AST ALT Total Creatine Kinase Troponin T NT-Pro-B Natriuret Pep Total Protein Albumin LDL Cholesterol Direct HDL Cholesterol TSH Free T4 Arterial Blood Glucose 04/20/21 04/20/21 04:22 11:27 WBC Hgb Hct MCV MCH MCHC RDW Seg Neuts % (Manual) Lymphocytes % (Manual) Nucleated RBC % Seg Neutrophils # Man Lymphocytes # (Manual) Monocytes # (Manual) PT INR D-Dimer ABG pH POC ABG pCO2 POC ABG pO2 ABG pO2 ABG HCO3 ABG Base Excess ABG Hemoglobin ABG Oxyhemoglobin ABG Sodium ABG Chloride ABG Glucose Oxyhemoglobin Carboxyhemoglobin Sodium 147 H Potassium Chloride Carbon Dioxide 37 H BUN 74 H Creatinine 1.3 H Glucose 193 H POC Glucose 154 H Calcium Ionized Calcium Total Bilirubin AST ALT Total Creatine Kinase Troponin T NT-Pro-B Natriuret Pep Total Protein Albumin LDL Cholesterol Direct HDL Cholesterol TSH Free T4 Arterial Blood Glucose Allied health notes reviewed: nursing
--- NOTE | 2021-04-20 15:57 | Progress Note ---
Assessment and Plan Assessment and plan: (1) Non-ST elevation ND (NSTEMI) type II Procardia Current Visit: Yes Status: Acute Plan to address problem: Admit the patient to the medical telemetry. Aspirin 325 mg p.o. daily. Lipitor 40 mg p.o. daily. Nitroglycerin as needed. We do the serial cardiac enzyme. We also consult cardiology for evaluation and order echocardiogram. (2) Acute exacerbation of CHF (congestive heart failure) Current Visit: Yes Status: Acute Plan to address problem: Fluid restriction. Maintain input output. Lasix 40 mg IV every 12 hours. Oxygen via nasal cannula 3 L/min. DuoNeb by nebulizer every 4 hours. Echocardiogram. Cardiology consult (3) hypothyroidism -new diagnosis (4) COPD (chronic obstructive pulmonary disease) Current Visit: Yes Status: Acute Plan to address problem: Oxygen by nasal cannula 3 L/min. DuoNeb via nebulizer every 4 hours. Albuterol via nebulizer every 4 hours as needed. Super (5) Morbid obesity Current Visit: Yes Status: Acute Plan to address problem: We counseled regarding weight reduction. Outpatient follow-up with bariatric surgeon (6) Hyperglycemia Current Visit: Yes Status: Acute Plan to address problem: We will give 1 ampoule of D50. We will put the patient on cardiac diet. We will monitor the blood glucose closely (7) acute kidney injury with vasomotor nephropathy (8) Lymphedema of the abdominal wall (9)Anemia of chronic disease (10)Possible passive congestive hepatic failure with underlying NAFLD (11) hypertension Current Visit: Yes Status: Acute Plan to address problem: We will continue the home medication. Hydralazine 10 mg IV every 6 hours as needed. We will monitor the blood pressure closely (12) DVT prophylaxis Current Visit: No Status: Acute Plan to address problem: Heparin 5000 units subcu every 8 hours for DVT prophylaxis. Pepcid 20 mg p.o. twice daily for GI prophylaxis. Patient is a full code 04/09 -Patient is on heparin drip for non-STEMI, cardiology is following. -Patient is off Lasix and SUNG inhibitors because of GILBERTO. -Kidney function is worsening overnight and I put a consult for nephrology. -Patient is hypotensive and blood pressure from this morning was 101/41. We will continue to monitor. And if it is dropping we we will give him fluid. -Echo was done and EF of 50 to 55%. Diastolic dysfunction is indeterminate. Management per cardiology -Patient has COPD continues on dexamethasone, nebulizer treatment as needed. -Patient has hyponatremia and hyperkalemia. I give the patient Kayexalate. Monitor electrolytes. Will follow nephrology for additional recommendation. 04/10 -Renal function is worsening, nephrology is following -Blood pressure is better today -Hyperkalemia; I added Kayexalate -Morbid obesity 04/11 -Slight improvement in creatinine. Hyponatremia worsened. Nephrology is following and put the patient back on Lasix. -Blood PRESSURE IS BETTER today -Potassium this morning was 5.8, I ordered 60 g of Kayexalate -Morbidly obese -Obesity hypoventilation syndrome 04/12 -Creatinine is improving and this morning was 2.4 -Hyponatremia improved this morning was 134. Patient is on Lasix -Blood pressure is better -Patient is on 10 L of oxygen; worsened -Morbidly obese, CLAUDIA 04/13: Follow ordered ultrasound of abdomen, per Physician unable to get CT. I ordered an ABG due to my concern about her breathing pattern this morning, patient may benefit from. Will try to establish if patient has a primary pulmonary doctor. ABG is showing consistent with Respiratory Acidosis. Will place on BIPAP now. May need to transfer to IMCU for closer monitoring. Patient likely with Obesity Hypoventilation syndrome. cardiology work up, ongoing. RENAL SHOWING SOME IMPROVEMENT Guarded prognosis 04/14: Patient seen and examined today identified some lesion under the pannus will obtain wound care and wound surgeon evaluation. Nephrology input noted continue diuresis and stop the sodium tabs creatinine is stable. I did discuss with the family and updated them. We will continue to hold SUNG and ARB and if pressures continue to drop may need to hold diuresis also despite as written above. Monitor labs including H&H. She is more awake review of ABG shows improving CO2. Will discuss with case management as patient may need BiPAP on discharge home. I also updated the family 04/15: Patient showing some clinical improvement. Liver enzymes is showing mild improvement although bilirubin increased slightly. GI input noted and as discussed by his notes below "Abnormal liver enzymes in hepatocellular pattern. broad ddx and likely multifactorial causes including NAFLD, congestive hepatopathy, possibly DILI. will check viral hep serologies. US with limited views, possible coarsening of the liver" Patient also evaluated by surgery noted with the lymphedema of abdominal wall and open wound of the abdominal wall without penetration into the abdominal cavity with recommendation to pack the wounds daily with mesalt. Need to maintain dry environment discussed with nursing staff. Elevate the pannus and optimize nutrition for which I will get nutritional consult. No surgical intervention at this time. Patient is bedbound when I asked when last she ambulated she said while "I guess he has not worked" but it has been a while. Unfortunately the LTAC center unwilling to accept the patient will discuss with pulmonary and with case management about obtaining BiPAP for this patient and possible SNF referral. 04/16: Patient this morning and was noted significantly lethargic and unresponsive respiratory and a code to be called. The patient resuscitated without any invasive procedure. ABG was obtained showed a CO2 of 142. Despite using BiPAP for some time through the night, sure how long she used it for. I have discontinued all IV opioids and recommend no IV opioids for this patient at this time. I also discontinued p.o. medications as an essential medication and change to IV. We will repeat an ABG in an hour to see if there is some improvement. Patient remains at high risk for possible intubation. Clinical condition is guarded 04/17: Patient remains on BiPAP this am, has some intermittent twitching, will check EEG, not likely seizure, but will monitor. Continue current management , check Albumin and Pre-Albumin level. Remains critically ill. Liver status showing improvement. 04/18: Patient with elevated D-dimer unfortunately size precludes being able to have a CTA chest done here to rule out pulmonary embolism. Doppler of lower extremities is pending. We will continue subcu anticoagulation with heparin at this time. Until Doppler is resolved. Patient is not hypoxic so doubt pulmonary embolism at this time. Her problem remains hypercapnia. I did take time to go over her history while she has been around hospital in the past and noticed a remarkable increase in her BMI from the last 2 years. Discussed with the electrician supervisor will agree to check thyroid function test. Critical care time 35- minute 3: Patient with hypothyroidism, while she does not appear to be with myxedema coma at this time. Will initiate levothyroxine as I believe that this will make profound impact her management at this time, continue BiPAP continue current management. Seroquel was added by pulmonary for delirium and agitation management, Ventimask during the day and BiPAP at night 04/20: Continue levothyroine, can change to PO in am. Will obtain Psych consult, she is clinically stable and will transfer to floor History Interval history: Patient seen and examined, this morning is on a Ventimask. She does have some hallucination. Hospitalist Physical - Physical exam Narrative exam: VITAL SIGNS: Reviewed. GENERAL: The patient is morbidly obese, lethargic on BiPAP Placed she is waking up some, Vital signs as documented. HEAD: No signs of head trauma. EYES: Pupils are equal. Extraocular motions intact. EARS: Hearing grossly intact. MOUTH: Oropharynx is normal. NECK: No adenopathy, no JVD. CHEST: Chest with diminished breath sounds bilaterally. No wheezes, rales, or rhonchi. CARDIAC: Regular rate and rhythm. S1 and S2, without murmurs, gallops, or rubs. VASCULAR: No Edema. Peripheral pulses normal and equal in all extremities. ABDOMEN: enlarged pannus, lymphedema with thickened skin, non tender and non distended. No rebound or guarding, and no masses palpated. Bowel Sounds normal. MUSCULOSKELETAL: Good range of motion of all major joints. Extremities without clubbing, cyanosis or edema. NEUROLOGIC EXAM: Lethargic but oriented x3 no focal sensory or strength deficits. Speech normal. Follows some commands. PSYCHIATRIC: Mood normal. SKIN: detail exam as documented in skin assessment - Constitutional Vitals: Temp Pulse Resp BP Pulse Ox 98.3 F 105 H 20 160/107 98 04/20/21 12:00 04/20/21 13:31 04/20/21 13:31 04/20/21 11:00 04/20/21 13:31 General appearance: Present: no acute distress HEART Score - HEART Score Troponin: Troponin T 0.078 ng/mL (0.00-0.029) H D 04/08/21 13:03 Results - Labs CBC & Chem 7: 04/19/21 04:40 04/20/21 04:22 Labs: Laboratory Last Values WBC 8.1 K/mm3 (4.5-11.0) 04/19/21 04:40 RBC 3.79 M/mm3 (3.65-5.03) 04/19/21 04:40 Hgb 8.1 gm/dl (10.1-14.3) L 04/19/21 04:40 Hct 27.5 % (30.3-42.9) L 04/19/21 04:40 MCV 73 fl (79-97) L 04/19/21 04:40 MCH 22 pg (28-32) L 04/19/21 04:40 MCHC 30 % (30-34) 04/19/21 04:40 RDW 25.4 % (13.2-15.2) H 04/19/21 04:40 Plt Count 224 K/mm3 (140-440) 04/19/21 04:40 Add Manual Diff Complete 04/12/21 14:11 Total Counted 100 04/12/21 14:11 Seg Neuts % (Manual) 86.0 % (40.0-70.0) H 04/12/21 14:11 Band Neutrophils % 1.0 % 04/12/21 14:11 Lymphocytes % (Manual) 6.0 % (13.4-35.0) L 04/12/21 14:11 Reactive Lymphs % (Man) 1.0 % 04/12/21 14:11 Monocytes % (Manual) 4.0 % (0.0-7.3) 04/12/21 14:11 Metamyelocytes % 2.0 % 04/12/21 14:11 Myelocytes % 2.0 % 04/08/21 04:03 Nucleated RBC % Not Reportable 04/12/21 14:11 Seg Neutrophils # Man 12.6 K/mm3 (1.8-7.7) H 04/12/21 14:11 Band Neutrophils # 0.1 K/mm3 04/12/21 14:11 Lymphocytes # (Manual) 0.9 K/mm3 (1.2-5.4) L 04/12/21 14:11 Abs React Lymphs (Man) 0.1 K/mm3 04/12/21 14:11 Monocytes # (Manual) 0.6 K/mm3 (0.0-0.8) 04/12/21 14:11 Eosinophils # (Manual) 0.0 K/mm3 (0.0-0.4) 04/12/21 14:11 Basophils # (Manual) 0.0 K/mm3 (0.0-0.1) 04/12/21 14:11 Metamyelocytes # 0.3 K/mm3 04/12/21 14:11 Myelocytes # 0.0 K/mm3 04/12/21 14:11 Promyelocytes # 0.0 K/mm3 04/12/21 14:11 Blast Cells # 0.0 K/mm3 04/12/21 14:11 WBC Morphology Not Reportable 04/12/21 14:11 WBC Morphology TNR 04/12/21 14:11 Hypersegmented Neuts Not Reportable 04/12/21 14:11 Hyposegmented Neuts Not Reportable 04/12/21 14:11 Hypogranular Neuts Not Reportable 04/12/21 14:11 Smudge Cells Not Reportable 04/12/21 14:11 Toxic Granulation Not Reportable 04/12/21 14:11 Toxic Vacuolation Not Reportable 04/12/21 14:11 Dohle Bodies Not Reportable 04/12/21 14:11 Pelger-Huet Anomaly Not Reportable 04/12/21 14:11 Ana Cristina Rods Not Reportable 04/12/21 14:11 Platelet Estimate Consistent w auto 04/12/21 14:11 Clumped Platelets Not Reportable 04/12/21 14:11 Plt Clumps, EDTA Not Reportable 04/12/21 14:11 Large Platelets Not Reportable 04/12/21 14:11 Giant Platelets Not Reportable 04/12/21 14:11 Platelet Satelliting Not Reportable 04/12/21 14:11 Plt Morphology Comment Not Reportable 04/12/21 14:11 RBC Morphology Not Reportable 04/12/21 14:11 Dimorphic RBCs Not Reportable 04/12/21 14:11 Polychromasia Few 04/12/21 14:11 Hypochromasia 1+ 04/12/21 14:11 Poikilocytosis Not Reportable 04/12/21 14:11 Anisocytosis Not Reportable 04/12/21 14:11 Microcytosis Not Reportable 04/12/21 14:11 Macrocytosis Not Reportable 04/12/21 14:11 Spherocytes Not Reportable 04/12/21 14:11 Pappenheimer Bodies Not Reportable 04/12/21 14:11 Sickle Cells Not Reportable 04/12/21 14:11 Target Cells 1+ 04/12/21 14:11 Tear Drop Cells Few 04/12/21 14:11 Ovalocytes Not Reportable 04/12/21 14:11 Helmet Cells Not Reportable 04/12/21 14:11 [place] Bodies Not Reportable 04/12/21 14:11 Burna Rings Not Reportable 04/12/21 14:11 Sara Cells Not Reportable 04/12/21 14:11 Bite Cells Not Reportable 04/12/21 14:11 Crenated Cell Not Reportable 04/12/21 14:11 Elliptocytes Not Reportable 04/12/21 14:11 Acanthocytes (Spur) Not Reportable 04/12/21 14:11 Rouleaux Not Reportable 04/12/21 14:11 Hemoglobin C Crystals Not Reportable 04/12/21 14:11 Schistocytes Not Reportable 04/12/21 14:11 Malaria parasites Not Reportable 04/12/21 14:11 Tyshawn Bodies Not Reportable 04/12/21 14:11 Hem Pathologist Commnt No 04/12/21 14:11 PT 18.7 Sec. (12.2-14.9) H 04/18/21 16:55 INR 1.51 (0.87-1.13) H 04/18/21 16:55 APTT 25.2 Sec. (24.2-36.6) 04/18/21 16:55 D-Dimer 5410.10 ng/mlDDU (0-234) H 04/17/21 16:03 ABG pH 7.382 (7.320-7.450) 04/18/21 14:19 POC ABG pCO2 67.4 mmHg (32.0-48.0) H 04/18/21 14:19 ABG pCO2 86.9 mm Hg 04/13/21 18:40 POC ABG pO2 150.6 mmHg (83-108) H 04/18/21 14:19 ABG pO2 81.8 mm Hg (80.0-90.0) 04/13/21 18:40 POC ABG HCO3 39.2 04/18/21 14:19 ABG HCO3 36.2 mmol/L (20.0-26.0) H 04/13/21 18:40 ABG O2 Saturation 99.4 (0-100) 04/18/21 14:19 ABG O2 Content 10.4 (0.0-44) 04/13/21 18:40 POC ABG Base Excess 12.2 04/18/21 14:19 ABG Base Excess 7.4 mmol/L (-2.0-3.0) H 04/13/21 18:40 ABG Hemoglobin 9.3 (12.0-17.5) L 04/18/21 14:19 ABG Oxyhemoglobin 97.5 (94-98) 04/18/21 14:19 ABG Carboxyhemoglobin 1.9 % (0.0-5.0) 04/13/21 18:40 ABG Methemoglobin 0.3 (0.0-1.5) 04/18/21 14:19 ABG Sodium 143.0 mmol/L (136.0-145.0) 04/18/21 14:19 ABG Potassium 4.2 mmol/L (3.40-4.50) 04/18/21 14:19 ABG Chloride 98.0 mmol/L (98-107) 04/18/21 14:19 ABG Glucose 162 mg/dL (65-95) H 04/18/21 14:19 Oxyhemoglobin 93.7 % (95.0-99.0) L 04/13/21 18:40 Carboxyhemoglobin 1.6 (0.5-1.5) H 04/18/21 14:19 FiO2 30 % 04/13/21 18:40 FiO2 % 35.0 04/18/21 14:19 Sodium 147 mmol/L (137-145) H 04/20/21 04:22 Potassium 4.8 mmol/L (3.6-5.0) 04/20/21 04:22 Chloride 100.6 mmol/L (98-107) 04/20/21 04:22 Carbon Dioxide 37 mmol/L (22-30) H 04/20/21 04:22 Anion Gap 14 mmol/L 04/20/21 04:22 BUN 74 mg/dL (7-17) H 04/20/21 04:22 Creatinine 1.3 mg/dL (0.6-1.2) H 04/20/21 04:22 Estimated GFR 57 ml/min 04/20/21 04:22 BUN/Creatinine Ratio 57 % 04/20/21 04:22 Glucose 193 mg/dL (65-100) H 04/20/21 04:22 POC Glucose 154 mg/dL (70-105) H 04/20/21 11:27 Osmolality 301 Mosm/kg 04/09/21 23:15 Calcium 9.2 mg/dL (8.4-10.2) 04/20/21 04:22 Ionized Calcium 3.6 mg/dL (4.8-5.6) L 04/09/21 23:15 Total Bilirubin 1.60 mg/dL (0.1-1.2) H 04/17/21 08:55 AST 172 units/L (5-40) H 04/17/21 08:55 ALT 437 units/L (7-56) H 04/17/21 08:55 Alkaline Phosphatase 92 units/L (35-129) 04/17/21 08:55 Total Creatine Kinase 1712 units/L (30-135) H 04/10/21 10:04 Troponin T 0.078 ng/mL (0.00-0.029) H D 04/08/21 13:03 NT-Pro-B Natriuret Pep 7573 pg/mL (0-450) H 04/07/21 22:04 Total Protein 10.1 g/dL (6.3-8.2) H 04/17/21 08:55 Albumin 3.2 g/dL (3.9-5) L 04/17/21 08:55 Albumin/Globulin Ratio 0.5 % 04/17/21 08:55 Triglycerides 105 mg/dL (2-149) 04/07/21 22:04 Cholesterol 85 mg/dL (50-199) 04/07/21 22:04 LDL Cholesterol Direct 47 mg/dL (50-130) L 04/07/21 22:04 HDL Cholesterol 25 mg/dL (40-59) L 04/07/21 22:04 Cholesterol/HDL Ratio 3.40 % 04/07/21 22:04 TSH 6.140 mlU/mL (0.270-4.200) H 04/18/21 19:55 Free T4 0.67 ng/dL (0.76-1.46) L 04/18/21 19:55 Total Cortisol 41.3 mcg/dL () 04/10/21 10:04 Arterial Blood Glucose 162 mg/dL (65-95) H 04/18/21 14:19 Arterial Blood Ionized Calcium 4.6 mg/dL (4.6-5.3) 04/16/21 07:32 Urine Osmolality 157 Mosm/kg 04/09/21 18:46 Urine Sodium 16 mmol/L 04/09/21 18:46 Coronavirus (PCR) Negative (Negative) 04/14/21 Unknown Hepatitis A IgM Ab Non-reactive (NonReactive) 04/14/21 18:45 Hep Bs Antigen Nonreactive (Negative) 04/14/21 18:45 Hepatitis C Antibody Non-reactive (NonReactive) 04/14/21 18:45 Zambrano/IV: Voiding Method Indwelling Catheter Active Medications - Current Medications Current Medications: Generic Name Dose Route Start Last Admin Trade Name Freq PRN Reason Stop Dose Admin Acetaminophen 650 mg 04/08/21 03:00 04/17/21 06:42 Acetaminophen 325 Mg Tab PO 650 mg Q4H PRN Administration Pain MILD(1-3)/Fever >100.5/BROWN Albuterol 2.5 mg 04/08/21 03:00 Albuterol 2.5 Mg/3 Ml Nebu IH Q4HRT PRN Shortness Of Breath Albuterol/Ipratropium 1 ampul 04/08/21 08:00 04/20/21 13:31 Ipratropium/Albuterol Sulfate 3 Ml Ampul.Neb IH 1 ampul TIDRT EKATERINA Administration Aspirin 325 mg 04/09/21 10:00 04/20/21 10:41 Aspirin Ec 325 Mg Tab PO 325 mg QDAY EKATERINA Administration Atorvastatin Calcium 40 mg 04/08/21 22:00 04/19/21 21:18 Atorvastatin 40 Mg Tab PO 40 mg QHS EKATERINA Administration Benzonatate 100 mg 04/08/21 06:00 04/20/21 15:17 Benzonatate 100 Mg Cap PO 100 mg Q8HR EKATERINA Administration Guaifenesin 200 mg 04/12/21 14:47 04/17/21 06:43 Guaifenesin 100 Mg/5 Ml Oral Liqd PO 200 mg Q4H PRN Administration Cough Haloperidol Lactate 5 mg 04/18/21 16:27 04/19/21 22:52 Haloperidol Lactate 5 Mg/1 Ml Inj IV 5 mg Q6H PRN Administration Agitation Heparin Sodium (Porcine) 5,000 unit 04/18/21 14:00 04/20/21 15:17 Heparin 5,000 Unit/1 Ml Vial SUB-Q 5,000 unit Q8HR EKATERINA Administration Hydralazine HCl 10 mg 04/19/21 17:25 Hydralazine 20 Mg/1 Ml Inj IV Q6H PRN Blood Pressure Levothyroxine Sodium 100 mcg 04/20/21 06:00 04/20/21 05:11 Levothyroxine 100 Mcg Inj IV 100 mcg DAILY@0600 EKATERINA Administration Methylprednisolone Sodium Succinate 20 mg 04/16/21 10:00 04/20/21 10:42 Methylprednisolone Sod Succinate 40 Mg/1 Ml Inj IV 20 mg Q12HR EKATERINA Administration Nitroglycerin 0.4 mg 04/08/21 03:00 Nitroglycerin 0.4 Mg Tab Subl SL Q5M PRN Chest Pain Nystatin 1 applic 04/08/21 18:00 04/20/21 10:30 Nystatin Powder 15 Gm TP 1 applic BID EKATERINA Administration Ondansetron HCl 4 mg 04/08/21 03:00 04/15/21 23:51 Ondansetron 4 Mg/2 Ml Inj IV 4 mg Q8H PRN Administration Nausea And Vomiting Oxycodone/Acetaminophen 1 tab 04/08/21 03:00 04/17/21 21:19 Oxycodone /Acetaminophen 5-325mg Tab PO 1 tab Q6H PRN Administration Pain, Moderate (4-6) Pantoprazole Sodium 40 mg 04/16/21 10:00 04/20/21 10:41 Pantoprazole 40 Mg Inj IV 40 mg QDAY EKATERINA Administration Quetiapine Fumarate 75 mg 04/18/21 22:00 04/19/21 21:18 Quetiapine 25 Mg Tab PO 75 mg QHS EKATERINA Administration Sodium Chloride 10 ml 04/08/21 10:00 04/20/21 10:41 Sodium Chloride 0.9% 10 Ml Flush Syringe IV 10 ml BID EKATERINA Administration Sodium Chloride 10 ml 04/08/21 03:00 Sodium Chloride 0.9% 10 Ml Flush Syringe IV PRN PRN LINE FLUSH Tramadol HCl 50 mg 04/08/21 03:00 Tramadol 50 Mg Tab PO Q6H PRN Pain, Moderate (4-6) Nutrition/Malnutrition Assess - Dietary Evaluation Nutrition/Malnutrition Findings: Nutrition Notes Start: 04/08/21 14:21 Freq: Status: Active Protocol: Document 04/13/21 17:08 GB (Rec: 04/13/21 17:14 LUCIO [id number]) Nutrition Notes Initial or Follow up Reassessment Current Diagnosis Hypertension Other Pertinent Diagnosis Dyspnea, respiratory distress, morbid obesity Current Diet Regular Labs/Tests 04/13: Na 134, BUN 63, creatinine 2.2, glucose 159, Ca 7.8 Pertinent Medications Lasix, NaCl IV flushes Height 5 ft 4 in Weight 287.5 kg [place] Body Weight (kg) 54.54 BMI 108.8 Weight change and time frame expect weight fluctuations r/t fluid therapy, CHF complications Weight Status Morbidly Obese Subjective/Other Information Per MD notes 04/13: fluid restrictions, on nasal cannula 3L, possibly obesity hypoventilation syndrome, recommended to bariatric consult Percent of energy/protein needs met: Meals and snacks provided meet 100% of estimated energy needs. Current po intake of meals recorded average 50%. Burn Absent Trauma Absent GI Symptoms None Food Allergy No Current % PO Fair (50-74%) Minimum of two criteria No #1 Nutrition Diagnosis Overweight/obesity Comments: Discussed diet/life style changes using small goal successes to advancement, encouraged outpatient RD counseling at bariatric center Etiology dyspnea, respiratory distress As Evidenced by Signs and Symptoms BMI 103, IBW 498% Diagnosis Progress(for reassessment Continues documentation) Is patient on ventilator? No Is Patient Ambulatory and/or Out of Bed No REE-([facility]-confined to bed) 4277.724 Kcal/Kg value to use for calculation 10 Approximate Energy Requirements Using 2875 kcal/Kg Calculation Used for Recommendations Kcal/kg Additional Notes Protein 0.6 g/kg r/t BMI over 50: 163g Fluids: 1ml/kcal or per MD Nutrition Intervention Change Diet Order: continue with current diet Goal #1 Pt to contact and make appointment with outpatient RD in bariatric center Goal #2 weight to decrease -1% during LOS Follow-Up By: 04/20/21 Additional Comments f/u for weight loss, po intake
[2021-04-20] MEDS: hydrALAZINE 20 MG/1 ML INJ IV PRN (18:27)
[2021-04-20] MEDS: QUEtiapine 25 MG TAB PO SCH (21:43)
[2021-04-21] MEDS: HALOPERIDOL LACTATE 5 MG/1 ML INJ IV PRN (03:30)
[2021-04-21] MEDS ORDERED: WATER FOR INJ Sterile (PF) 10 ML ONE (05:39)
[2021-04-21] MEDS: LEVOTHYROXINE 100 MCG INJ IV SCH (05:57)
[2021-04-21] MEDS: HEPARIN 5,000 UNIT/1 ML VIAL SUB-Q SCH ×3 (05:57→22:24)
[2021-04-21] MEDS: BENZONATATE 100 MG CAP PO SCH ×3 (06:03→22:24)
[2021-04-21] MEDS: IPRATROPIUM/ALBUTEROL SULFATE 3 ML AMPUL.NEB IH SCH ×3 (09:20→21:33)
[2021-04-21] MEDS: ASPIRIN EC 325 MG TAB PO SCH (10:55)
[2021-04-21] MEDS: PANTOPRAZOLE 40 MG INJ IV SCH (10:55)
[2021-04-21] MEDS: methylPREDNISolone Sod Succinate 40 MG/1 ML INJ IV SCH ×2 (10:55→22:23)
[2021-04-21] MEDS: NYSTATIN POWDER 15 GM TP SCH ×2 (10:58→22:29)
--- NOTE | 2021-04-21 11:16 | Electrocardiograph Report ---
[facility] Test Date: 2021-04-19 Test Time: 07:59:11 Pat Name: FRANCISCO VERA Department: Room: A485 Gender: F Qa Consultant: RHIANNON : 1985 Requested By: ADELFO HARE Order Number: [id number] Reading MD: Moses Morris Measurements Intervals [place] Rate: 92 P: 57 PA: 125 QRS: 63 QRSD: 78 T: -59 QT: 323 QTc: 400 Interpretive Statements Sinus rhythm Low voltage, precordial leads Borderline T abnormalities, diffuse leads Compared to ECG 04/10/2021 06:41:52 Low QRS voltage now present T-wave abnormality now present Electronically Signed On 04-21-2021 11:15:57 EDT by Moses Morris
--- NOTE | 2021-04-21 12:04 | Progress Note ---
Assessment and Plan 35 years old female with history of morbid obesity, hypertension, asthma , sleep apnea was brought to the emergency room because of shortness of breath, edema, generalized malaise, fatigue, and weakness for last couple of days. She states she just does not feel well. She has a headache. She states her legs are swollen. She feels as though she is retaining fluid. She states that she went to her regular doctors on the . They tested her for Covid. It was negative. She was told to go see a brake drum molder. She is not seen a car diologist as of yet. She came in here because she was not feeling well and did not know what to do. She has had no sick contacts. In the emergency room patient is found to have acute CHF exacerbation patient proBNP is 7573 also patient cardiac enzyme is elevated troponin is 0.043. Patient blood glucose also 55 patient is hypoglycemic Patients present blood sugur 130. Patient is awake. Resting on 3L O2. O2 saturation 98%. BIPAP 20/8, rate 30, FIO2 40% and stand-by in the room. Patient afebrile. No leukocytosis. Blood pressure 136/80, Pulse 102 ABG on FIO2 45% ABG pH 7.234 (7.320-7.450) L 04/17/21 09:47 POC ABG pCO2 90.5 mmHg (32.0-48.0) H 04/17/21 09:47 ABG pCO2 86.9 mm Hg 04/13/21 18:40 POC ABG pO2 139.4 mmHg (83-108) H 04/17/21 09:47 ABG pO2 81.8 mm Hg (80.0-90.0) 04/13/21 18:40 POC ABG HCO3 37.4 04/17/21 09:47 ABG O2 Saturation 99.2 (0-100) 04/17/21 09:47 Patients D dimer 04/17/21 : 5410.10 Patient presently on albuterol/atrovent aerosol treatments q 6 hours, Subcutaneous Heparin, Protonix, and I/V SoluMedrol. - Patient Problems (1) Acute respiratory failure with hypoxia and hypercapnia Current Visit: Yes Status: Acute Plan to address problem: On 3L O2 Saturation 98%. BIPAP 20/8, rate 30, FIO2 40%. Stand-by. Albuterol/atrovent aerosol treatments. Continue Solumedrol Contibue S/C Heparin. Continue Protonix (2) Acute exacerbation of CHF (congestive heart failure) Current Visit: Yes Status: Acute Plan to address problem: Management as per cardiology. (3) Hypertension Current Visit: Yes Status: Acute Plan to address problem: Management as per primary care. (4) Morbid obesity with BMI of 70 and over, adult Current Visit: No Status: Acute Plan to address problem: Weight reduction diet. Mobility protocol Fall precautions. (5) Obesity hypoventilation syndrome Current Visit: No Status: Acute Plan to address problem: BIPAP 20/8, rate 30, FIO2 40%. (6) Sleep apnea Current Visit: No Status: Acute Plan to address problem: BIPAP 20/8, rate 30, FIO2 40%. Sleep study if she can as out patient. Subjective Date of service: 04/21/21 Principal diagnosis: Ac hypoxemic and hypercapnic resp failure; AE-CHF; Morbid obesity; CLAUDIA/OHS Interval history: 35 years old female with history of morbid obesity, hypertension, asthma COPD sleep apnea was brought to the emergency room because of shortness of breath, edema, generalized malaise, fatigue, and weakness for last couple of days. She states she just does not feel well. She has a headache. She states her legs are swollen. She feels as though she is retaining fluid. She states that she went to her regular doctors on the . They tested her for Covid. It was negative. She was told to go see a brake drum molder. She is not seen a brake drum molder as of yet. She came in here because she was not feeling well and did not know what to do. She has had no sick contacts. In the emergency room patient is found to have acute CHF exacerbation patient proBNP is 7573 also patient cardiac enzyme is elevated troponin is 0.043. P atient blood glucose also 55 patient is hypoglycemic. Patient is awake. Resting on 3L O2. O2 saturation 98%. BIPAP 20/8, rate 30, FIO2 40% and stand-by in the room. Patient afebrile. No leukocytosis. Blood pressure 136/80, Pulse 102 ABG on FIO2 45% ABG pH 7.234 (7.320-7.450) L 04/17/21 09:47 POC ABG pCO2 90.5 mmHg (32.0-48.0) H 04/17/21 09:47 ABG pCO2 86.9 mm Hg 04/13/21 18:40 POC ABG pO2 139.4 mmHg (83-108) H 04/17/21 09:47 ABG pO2 81.8 mm Hg (80.0-90.0) 04/13/21 18:40 POC ABG HCO3 37.4 04/17/21 09:47 ABG O2 Saturation 99.2 (0-100) 04/17/21 09:47 Patients D dimer 04/17/21 : 5410.10 Patient presently on albuterol/atrovent aerosol treatments q 6 hours, subcutaneous Heparin, Protonix, and I/V SoluMedrol. Objective Vital Signs - 12hr 04/21/21 04/21/21 04/21/21 02:59 03:00 04:05 Temperature 98.6 F Pulse Rate 101 H Pulse Rate [ Anterior Bilateral Throughout] Respiratory 30 H Rate Respiratory Rate [Anterior Bilateral Throughout] Blood Pressure 158/92 Blood Pressure [Right] O2 Sat by Pulse 100 100 Oximetry 04/21/21 04/21/21 04/21/21 04:29 09:02 09:14 Temperature 97.9 F 98.6 F Pulse Rate 101 H 102 H Pulse Rate [ Anterior Bilateral Throughout] Respiratory 30 H 30 H 30 H Rate Respiratory Rate [Anterior Bilateral Throughout] Blood Pressure Blood Pressure 158/92 158/92 [Right] O2 Sat by Pulse 95 100 Oximetry 04/21/21 04/21/21 04/21/21 09:47 09:48 11:30 Temperature 97.3 F L Pulse Rate 108 H Pulse Rate [ 105 H Anterior Bilateral Throughout] Respiratory 26 H Rate Respiratory 20 Rate [Anterior Bilateral Throughout] Blood Pressure Blood Pressure 108/80 [Right] O2 Sat by Pulse 98 93 Oximetry 04/21/21 11:51 Temperature 97.3 F L Pulse Rate Pulse Rate [ Anterior Bilateral Throughout] Respiratory 26 H Rate Respiratory Rate [Anterior Bilateral Throughout] Blood Pressure 108/80 Blood Pressure [Right] O2 Sat by Pulse Oximetry Constitutional: no acute distress, alert, other (young extremely obese female with mildly increased respiratory effort at rest) Eyes: non-icteric ENT: oropharynx moist, other (BIPAP FFM) Neck: supple, no lymphadenopathy, no JVD Effort: mildly labored Ascultation: Bilateral: diminished breath sounds, rhonchi Percussion: Bilateral: not dull Cardiovascular: regular rate and rhythm Gastrointestinal: normoactive bowel sounds, soft, non-tender, non-distended (protuberant) Integumentary: rash (stasis dermatitis type), other (Stasis dermatititis on legs and abdomen; see [facility] notes for full details) Extremities: pulses normal, no ischemia or petechiae, edema (2+), other (stasis dermatitis) Neurologic: non-focal exam (grossly), pupils equal and round, CN II-XII normal Psychiatric: depressed CBC and BMP: 04/19/21 04:40 04/20/21 04:22 ABG, PT/INR, D-dimer: ABG ABG pH 7.382 (7.320-7.450) 04/18/21 14:19 POC ABG pCO2 67.4 mmHg (32.0-48.0) H 04/18/21 14:19 ABG pCO2 86.9 mm Hg 04/13/21 18:40 POC ABG pO2 150.6 mmHg (83-108) H 04/18/21 14:19 ABG pO2 81.8 mm Hg (80.0-90.0) 04/13/21 18:40 POC ABG HCO3 39.2 04/18/21 14:19 ABG O2 Saturation 99.4 (0-100) 04/18/21 14:19 PT/INR, D-dimer PT 18.7 Sec. (12.2-14.9) H 04/18/21 16:55 INR 1.51 (0.87-1.13) H 04/18/21 16:55 D-Dimer 5410.10 ng/mlDDU (0-234) H 04/17/21 16:03 Abnormal lab findings: Abnormal Labs 04/07/21 04/07/21 04/08/21 22:04 22:04 00:18 WBC 17.7 H Hgb 9.1 L Hct MCV 77 L MCH 21 L MCHC 27 L RDW 24.3 H Seg Neuts % (Manual) Lymphocytes % (Manual) Nucleated RBC % Seg Neutrophils # Man Lymphocytes # (Manual) Monocytes # (Manual) PT INR D-Dimer ABG pH POC ABG pCO2 POC ABG pO2 ABG pO2 ABG HCO3 ABG Base Excess ABG Hemoglobin ABG Oxyhemoglobin ABG Sodium ABG Chloride ABG Glucose Oxyhemoglobin Carboxyhemoglobin Sodium 135 L Potassium Chloride 91.0 L Carbon Dioxide 17 L BUN Creatinine 1.4 H Glucose 55 L POC Glucose 49 L Calcium Ionized Calcium Total Bilirubin AST ALT Total Creatine Kinase Troponin T 0.043 H NT-Pro-B Natriuret Pep 7573 H Total Protein Albumin LDL Cholesterol Direct 47 L HDL Cholesterol 25 L TSH Free T4 Arterial Blood Glucose 04/08/21 04/08/21 04/08/21 04:03 04:03 09:22 WBC 24.3 H Hgb 9.3 L Hct MCV 74 L MCH 21 L MCHC 29 L RDW 23.1 H Seg Neuts % (Manual) 78.0 H Lymphocytes % (Manual) 7.0 L Nucleated RBC % 1.0 H Seg Neutrophils # Man 19.0 H Lymphocytes # (Manual) Monocytes # (Manual) 1.0 H PT INR D-Dimer ABG pH POC ABG pCO2 POC ABG pO2 ABG pO2 ABG HCO3 ABG Base Excess ABG Hemoglobin ABG Oxyhemoglobin ABG Sodium ABG Chloride ABG Glucose Oxyhemoglobin Carboxyhemoglobin Sodium 134 L Potassium Chloride 91.2 L Carbon Dioxide BUN Creatinine 1.8 H Glucose POC Glucose Calcium Ionized Calcium Total Bilirubin AST ALT Total Creatine Kinase Troponin T 0.099 H NT-Pro-B Natriuret Pep Total Protein Albumin LDL Cholesterol Direct HDL Cholesterol TSH Free T4 Arterial Blood Glucose 04/08/21 04/08/21 04/09/21 13:03 20:28 04:52 WBC 20.9 H Hgb 8.5 L Hct 30.0 L MCV 73 L MCH 21 L MCHC 28 L RDW 23.9 H Seg Neuts % (Manual) 77.0 H Lymphocytes % (Manual) 1.0 L Nucleated RBC % 1.0 H Seg Neutrophils # Man 16.1 H Lymphocytes # (Manual) 0.2 L Monocytes # (Manual) PT INR D-Dimer ABG pH POC ABG pCO2 POC ABG pO2 ABG pO2 ABG HCO3 ABG Base Excess ABG Hemoglobin ABG Oxyhemoglobin ABG Sodium ABG Chloride ABG Glucose Oxyhemoglobin Carboxyhemoglobin Sodium Potassium Chloride Carbon Dioxide BUN Creatinine Glucose POC Glucose 115 H Calcium Ionized Calcium Total Bilirubin AST ALT Total Creatine Kinase Troponin T 0.078 H D NT-Pro-B Natriuret Pep Total Protein Albumin LDL Cholesterol Direct HDL Cholesterol TSH Free T4 Arterial Blood Glucose 04/09/21 04/09/21 04/09/21 04:52 08:46 11:50 WBC Hgb Hct MCV MCH MCHC RDW Seg Neuts % (Manual) Lymphocytes % (Manual) Nucleated RBC % Seg Neutrophils # Man Lymphocytes # (Manual) Monocytes # (Manual) PT INR D-Dimer ABG pH POC ABG pCO2 POC ABG pO2 ABG pO2 ABG HCO3 ABG Base Excess ABG Hemoglobin ABG Oxyhemoglobin ABG Sodium ABG Chloride ABG Glucose Oxyhemoglobin Carboxyhemoglobin Sodium 129 L Potassium 5.6 H Chloride 88.6 L Carbon Dioxide BUN 27 H Creatinine 2.4 H Glucose 121 H POC Glucose 139 H 156 H Calcium 7.7 L Ionized Calcium Total Bilirubin AST ALT Total Creatine Kinase Troponin T NT-Pro-B Natriuret Pep Total Protein Albumin LDL Cholesterol Direct HDL Cholesterol TSH Free T4 Arterial Blood Glucose 04/09/21 04/09/21 04/09/21 15:46 16:58 22:08 WBC Hgb Hct MCV MCH MCHC RDW Seg Neuts % (Manual) Lymphocytes % (Manual) Nucleated RBC % Seg Neutrophils # Man Lymphocytes # (Manual) Monocytes # (Manual) PT INR D-Dimer ABG pH POC ABG pCO2 POC ABG pO2 ABG pO2 ABG HCO3 ABG Base Excess ABG Hemoglobin ABG Oxyhemoglobin ABG Sodium ABG Chloride ABG Glucose Oxyhemoglobin Carboxyhemoglobin Sodium 128 L Potassium 5.5 H Chloride 88.1 L Carbon Dioxide BUN 33 H Creatinine 2.7 H Glucose 172 H POC Glucose 187 H 186 H Calcium 7.3 L Ionized Calcium Total Bilirubin AST ALT Total Creatine Kinase Troponin T NT-Pro-B Natriuret Pep Total Protein Albumin LDL Cholesterol Direct HDL Cholesterol TSH Free T4 Arterial Blood Glucose 04/09/21 04/10/21 04/10/21 23:15 02:20 07:39 WBC Hgb Hct MCV MCH MCHC RDW Seg Neuts % (Manual) Lymphocytes % (Manual) Nucleated RBC % Seg Neutrophils # Man Lymphocytes # (Manual) Monocytes # (Manual) PT INR D-Dimer ABG pH POC ABG pCO2 POC ABG pO2 ABG pO2 ABG HCO3 ABG Base Excess ABG Hemoglobin ABG Oxyhemoglobin ABG Sodium ABG Chloride ABG Glucose Oxyhemoglobin Carboxyhemoglobin Sodium 128 L Potassium 5.2 H Chloride 88.6 L Carbon Dioxide BUN 39 H Creatinine 3.1 H Glucose 171 H POC Glucose 168 H Calcium 7.2 L Ionized Calcium 3.6 L Total Bilirubin AST ALT Total Creatine Kinase Troponin T NT-Pro-B Natriuret Pep Total Protein Albumin LDL Cholesterol Direct HDL Cholesterol TSH Free T4 Arterial Blood Glucose 04/10/21 04/10/21 04/10/21 10:04 11:37 17:18 WBC Hgb Hct MCV MCH MCHC RDW Seg Neuts % (Manual) Lymphocytes % (Manual) Nucleated RBC % Seg Neutrophils # Man Lymphocytes # (Manual) Monocytes # (Manual) PT INR D-Dimer ABG pH POC ABG pCO2 POC ABG pO2 ABG pO2 ABG HCO3 ABG Base Excess ABG Hemoglobin ABG Oxyhemoglobin ABG Sodium ABG Chloride ABG Glucose Oxyhemoglobin Carboxyhemoglobin Sodium Potassium Chloride Carbon Dioxide BUN Creatinine Glucose POC Glucose 170 H 152 H Calcium Ionized Calcium Total Bilirubin AST ALT Total Creatine Kinase 1712 H Troponin T NT-Pro-B Natriuret Pep Total Protein Albumin LDL Cholesterol Direct HDL Cholesterol TSH Free T4 Arterial Blood Glucose 04/10/21 04/10/21 04/11/21 19:38 22:02 05:48 WBC Hgb Hct MCV MCH MCHC RDW Seg Neuts % (Manual) Lymphocytes % (Manual) Nucleated RBC % Seg Neutrophils # Man Lymphocytes # (Manual) Monocytes # (Manual) PT INR D-Dimer ABG pH POC ABG pCO2 POC ABG pO2 ABG pO2 ABG HCO3 ABG Base Excess ABG Hemoglobin ABG Oxyhemoglobin ABG Sodium ABG Chloride ABG Glucose Oxyhemoglobin Carboxyhemoglobin Sodium 128 L 124 L Potassium 5.8 H D Chloride 89.6 L 89.4 L Carbon Dioxide BUN 47 H 53 H Creatinine 3.0 H 2.8 H Glucose 165 H 150 H POC Glucose 147 H Calcium 6.9 L 7.2 L Ionized Calcium Total Bilirubin AST ALT Total Creatine Kinase Troponin T NT-Pro-B Natriuret Pep Total Protein Albumin LDL Cholesterol Direct HDL Cholesterol TSH Free T4 Arterial Blood Glucose 04/11/21 04/11/21 04/11/21 08:48 11:35 19:12 WBC Hgb Hct MCV MCH MCHC RDW Seg Neuts % (Manual) Lymphocytes % (Manual) Nucleated RBC % Seg Neutrophils # Man Lymphocytes # (Manual) Monocytes # (Manual) PT INR D-Dimer ABG pH POC ABG pCO2 POC ABG pO2 ABG pO2 ABG HCO3 ABG Base Excess ABG Hemoglobin ABG Oxyhemoglobin ABG Sodium ABG Chloride ABG Glucose Oxyhemoglobin Carboxyhemoglobin Sodium 128 L Potassium Chloride 89.7 L Carbon Dioxide BUN 53 H Creatinine 2.4 H Glucose 159 H POC Glucose 152 H 152 H Calcium 7.1 L Ionized Calcium Total Bilirubin AST ALT Total Creatine Kinase Troponin T NT-Pro-B Natriuret Pep Total Protein Albumin LDL Cholesterol Direct HDL Cholesterol TSH Free T4 Arterial Blood Glucose 04/11/21 04/12/21 04/12/21 22:03 05:03 07:41 WBC Hgb Hct MCV MCH MCHC RDW Seg Neuts % (Manual) Lymphocytes % (Manual) Nucleated RBC % Seg Neutrophils # Man Lymphocytes # (Manual) Monocytes # (Manual) PT INR D-Dimer ABG pH POC ABG pCO2 POC ABG pO2 ABG pO2 ABG HCO3 ABG Base Excess ABG Hemoglobin ABG Oxyhemoglobin ABG Sodium ABG Chloride ABG Glucose Oxyhemoglobin Carboxyhemoglobin Sodium 134 L Potassium Chloride 92.9 L Carbon Dioxide 33 H D BUN 54 H Creatinine 2.4 H Glucose 150 H POC Glucose 152 H 144 H Calcium 7.2 L Ionized Calcium Total Bilirubin AST ALT Total Creatine Kinase Troponin T NT-Pro-B Natriuret Pep Total Protein Albumin LDL Cholesterol Direct HDL Cholesterol TSH Free T4 Arterial Blood Glucose 04/12/21 04/12/21 04/12/21 11:38 14:11 17:02 WBC 14.7 H Hgb 8.7 L Hct 29.8 L MCV 74 L MCH 22 L MCHC 29 L RDW 24.9 H Seg Neuts % (Manual) 86.0 H Lymphocytes % (Manual) 6.0 L Nucleated RBC % Seg Neutrophils # Man 12.6 H Lymphocytes # (Manual) 0.9 L Monocytes # (Manual) PT INR D-Dimer ABG pH POC ABG pCO2 POC ABG pO2 ABG pO2 ABG HCO3 ABG Base Excess ABG Hemoglobin ABG Oxyhemoglobin ABG Sodium ABG Chloride ABG Glucose Oxyhemoglobin Carboxyhemoglobin Sodium Potassium Chloride Carbon Dioxide BUN Creatinine Glucose POC Glucose 151 H 154 H Calcium Ionized Calcium Total Bilirubin AST ALT Total Creatine Kinase Troponin T NT-Pro-B Natriuret Pep Total Protein Albumin LDL Cholesterol Direct HDL Cholesterol TSH Free T4 Arterial Blood Glucose 04/12/21 04/13/21 04/13/21 23:14 05:03 10:00 WBC Hgb Hct MCV MCH MCHC RDW Seg Neuts % (Manual) Lymphocytes % (Manual) Nucleated RBC % Seg Neutrophils # Man Lymphocytes # (Manual) Monocytes # (Manual) PT INR D-Dimer ABG pH 7.150 L* POC ABG pCO2 POC ABG pO2 ABG pO2 91.8 H ABG HCO3 37.2 H ABG Base Excess 7.1 H ABG Hemoglobin 7.1 L ABG Oxyhemoglobin ABG Sodium ABG Chloride ABG Glucose Oxyhemoglobin 93.4 L Carboxyhemoglobin Sodium 134 L Potassium Chloride 91.3 L Carbon Dioxide 33 H BUN 63 H Creatinine 2.2 H Glucose 159 H POC Glucose 151 H Calcium 7.8 L Ionized Calcium Total Bilirubin AST ALT Total Creatine Kinase Troponin T NT-Pro-B Natriuret Pep Total Protein Albumin LDL Cholesterol Direct HDL Cholesterol TSH Free T4 Arterial Blood Glucose 04/13/21 04/13/21 04/13/21 12:39 16:37 18:40 WBC Hgb Hct MCV MCH MCHC RDW Seg Neuts % (Manual) Lymphocytes % (Manual) Nucleated RBC % Seg Neutrophils # Man Lymphocytes # (Manual) Monocytes # (Manual) PT INR D-Dimer ABG pH 7.237 L POC ABG pCO2 POC ABG pO2 ABG pO2 ABG HCO3 36.2 H ABG Base Excess 7.4 H ABG Hemoglobin 7.8 L ABG Oxyhemoglobin ABG Sodium ABG Chloride ABG Glucose Oxyhemoglobin 93.7 L Carboxyhemoglobin Sodium Potassium Chloride Carbon Dioxide BUN Creatinine Glucose POC Glucose 140 H 132 H Calcium Ionized Calcium Total Bilirubin AST ALT Total Creatine Kinase Troponin T NT-Pro-B Natriuret Pep Total Protein Albumin LDL Cholesterol Direct HDL Cholesterol TSH Free T4 Arterial Blood Glucose 04/13/21 04/14/21 04/14/21 23:55 04:27 04:27 WBC Hgb 8.5 L Hct 29.1 L MCV 72 L MCH 21 L MCHC 29 L RDW 24.9 H Seg Neuts % (Manual) Lymphocytes % (Manual) Nucleated RBC % Seg Neutrophils # Man Lymphocytes # (Manual) Monocytes # (Manual) PT INR D-Dimer ABG pH POC ABG pCO2 POC ABG pO2 ABG pO2 ABG HCO3 ABG Base Excess ABG Hemoglobin ABG Oxyhemoglobin ABG Sodium ABG Chloride ABG Glucose Oxyhemoglobin Carboxyhemoglobin Sodium 135 L Potassium Chloride 93.5 L Carbon Dioxide 33 H BUN 68 H Creatinine 1.9 H Glucose 143 H POC Glucose 135 H Calcium 8.1 L Ionized Calcium Total Bilirubin 1.50 H AST 494 H ALT 835 H Total Creatine Kinase Troponin T NT-Pro-B Natriuret Pep Total Protein 9.5 H Albumin 3.1 L LDL Cholesterol Direct HDL Cholesterol TSH Free T4 Arterial Blood Glucose 04/14/21 04/14/21 04/15/21 12:03 17:24 00:19 WBC Hgb Hct MCV MCH MCHC RDW Seg Neuts % (Manual) Lymphocytes % (Manual) Nucleated RBC % Seg Neutrophils # Man Lymphocytes # (Manual) Monocytes # (Manual) PT INR D-Dimer ABG pH 7.291 L POC ABG pCO2 75.5 H POC ABG pO2 76.2 L ABG pO2 ABG HCO3 ABG Base Excess ABG Hemoglobin 9.9 L ABG Oxyhemoglobin 91.0 L ABG Sodium 134.9 L ABG Chloride 93.0 L ABG Glucose 146 H Oxyhemoglobin Carboxyhemoglobin 2.2 H Sodium Potassium Chloride Carbon Dioxide BUN Creatinine Glucose POC Glucose 134 H 136 H Calcium Ionized Calcium Total Bilirubin AST ALT Total Creatine Kinase Troponin T NT-Pro-B Natriuret Pep Total Protein Albumin LDL Cholesterol Direct HDL Cholesterol TSH Free T4 Arterial Blood Glucose 146 H 04/15/21 04/15/21 04/15/21 04:55 04:55 05:29 WBC Hgb 8.0 L Hct 27.1 L MCV 70 L MCH 21 L MCHC RDW 24.3 H Seg Neuts % (Manual) Lymphocytes % (Manual) Nucleated RBC % Seg Neutrophils # Man Lymphocytes # (Manual) Monocytes # (Manual) PT INR D-Dimer ABG pH POC ABG pCO2 POC ABG pO2 ABG pO2 ABG HCO3 ABG Base Excess ABG Hemoglobin ABG Oxyhemoglobin ABG Sodium ABG Chloride ABG Glucose Oxyhemoglobin Carboxyhemoglobin Sodium Potassium Chloride 95.1 L Carbon Dioxide 36 H BUN 63 H Creatinine 1.5 H Glucose 131 H POC Glucose 118 H Calcium 8.3 L Ionized Calcium Total Bilirubin 1.80 H AST 323 H ALT 609 H Total Creatine Kinase Troponin T NT-Pro-B Natriuret Pep Total Protein 9.3 H Albumin 2.9 L LDL Cholesterol Direct HDL Cholesterol TSH Free T4 Arterial Blood Glucose 04/15/21 04/15/21 04/15/21 11:40 18:30 22:44 WBC Hgb Hct MCV MCH MCHC RDW Seg Neuts % (Manual) Lymphocytes % (Manual) Nucleated RBC % Seg Neutrophils # Man Lymphocytes # (Manual) Monocytes # (Manual) PT INR D-Dimer ABG pH POC ABG pCO2 POC ABG pO2 ABG pO2 ABG HCO3 ABG Base Excess ABG Hemoglobin ABG Oxyhemoglobin ABG Sodium ABG Chloride ABG Glucose Oxyhemoglobin Carboxyhemoglobin Sodium Potassium Chloride Carbon Dioxide BUN Creatinine Glucose POC Glucose 139 H 130 H 123 H Calcium Ionized Calcium Total Bilirubin AST ALT Total Creatine Kinase Troponin T NT-Pro-B Natriuret Pep Total Protein Albumin LDL Cholesterol Direct HDL Cholesterol TSH Free T4 Arterial Blood Glucose 04/16/21 04/16/21 04/16/21 04:53 04:53 07:16 WBC 12.5 H Hgb 8.8 L Hct 30.2 L MCV 74 L MCH 21 L MCHC 29 L RDW 24.5 H Seg Neuts % (Manual) Lymphocytes % (Manual) Nucleated RBC % Seg Neutrophils # Man Lymphocytes # (Manual) Monocytes # (Manual) PT INR D-Dimer ABG pH POC ABG pCO2 POC ABG pO2 ABG pO2 ABG HCO3 ABG Base Excess ABG Hemoglobin ABG Oxyhemoglobin ABG Sodium ABG Chloride ABG Glucose Oxyhemoglobin Carboxyhemoglobin Sodium Potassium Chloride 96.9 L Carbon Dioxide 35 H BUN 65 H Creatinine 1.5 H Glucose 142 H POC Glucose 138 H Calcium Ionized Calcium Total Bilirubin 1.50 H AST 251 H ALT 572 H Total Creatine Kinase Troponin T NT-Pro-B Natriuret Pep Total Protein 10.1 H Albumin 3.2 L LDL Cholesterol Direct HDL Cholesterol TSH Free T4 Arterial Blood Glucose 04/16/21 04/16/21 04/16/21 07:32 11:29 14:42 WBC Hgb Hct MCV MCH MCHC RDW Seg Neuts % (Manual) Lymphocytes % (Manual) Nucleated RBC % Seg Neutrophils # Man Lymphocytes # (Manual) Monocytes # (Manual) PT INR D-Dimer ABG pH 7.086 L 7.188 L POC ABG pCO2 142.2 H 99.3 H POC ABG pO2 196.3 H 132.3 H ABG pO2 ABG HCO3 ABG Base Excess ABG Hemoglobin 10.0 L 9.2 L ABG Oxyhemoglobin ABG Sodium ABG Chloride 96.0 L 96.0 L ABG Glucose 147 H 146 H Oxyhemoglobin Carboxyhemoglobin 1.6 H 2.0 H Sodium Potassium Chloride Carbon Dioxide BUN Creatinine Glucose POC Glucose 131 H Calcium Ionized Calcium Total Bilirubin AST ALT Total Creatine Kinase Troponin T NT-Pro-B Natriuret Pep Total Protein Albumin LDL Cholesterol Direct HDL Cholesterol TSH Free T4 Arterial Blood Glucose 147 H 146 H 04/16/21 04/16/21 04/17/21 17:23 22:34 07:44 WBC Hgb Hct MCV MCH MCHC RDW Seg Neuts % (Manual) Lymphocytes % (Manual) Nucleated RBC % Seg Neutrophils # Man Lymphocytes # (Manual) Monocytes # (Manual) PT INR D-Dimer ABG pH POC ABG pCO2 POC ABG pO2 ABG pO2 ABG HCO3 ABG Base Excess ABG Hemoglobin ABG Oxyhemoglobin ABG Sodium ABG Chloride ABG Glucose Oxyhemoglobin Carboxyhemoglobin Sodium Potassium Chloride Carbon Dioxide BUN Creatinine Glucose POC Glucose 117 H 169 H 150 H Calcium Ionized Calcium Total Bilirubin AST ALT Total Creatine Kinase Troponin T NT-Pro-B Natriuret Pep Total Protein Albumin LDL Cholesterol Direct HDL Cholesterol TSH Free T4 Arterial Blood Glucose 04/17/21 04/17/21 04/17/21 08:55 08:55 09:47 WBC Hgb 8.7 L Hct 29.4 L MCV 74 L MCH 22 L MCHC RDW 24.8 H Seg Neuts % (Manual) Lymphocytes % (Manual) Nucleated RBC % Seg Neutrophils # Man Lymphocytes # (Manual) Monocytes # (Manual) PT INR D-Dimer ABG pH 7.234 L POC ABG pCO2 90.5 H POC ABG pO2 139.4 H ABG pO2 ABG HCO3 ABG Base Excess ABG Hemoglobin 9.5 L ABG Oxyhemoglobin ABG Sodium ABG Chloride 97.0 L ABG Glucose 179 H Oxyhemoglobin Carboxyhemoglobin 1.7 H Sodium Potassium Chloride 94.4 L Carbon Dioxide 37 H BUN 68 H Creatinine 1.5 H Glucose 178 H POC Glucose Calcium Ionized Calcium Total Bilirubin 1.60 H AST 172 H ALT 437 H Total Creatine Kinase Troponin T NT-Pro-B Natriuret Pep Total Protein 10.1 H Albumin 3.2 L LDL Cholesterol Direct HDL Cholesterol TSH Free T4 Arterial Blood Glucose 179 H 04/17/21 04/17/21 04/17/21 11:39 16:03 17:24 WBC Hgb Hct MCV MCH MCHC RDW Seg Neuts % (Manual) Lymphocytes % (Manual) Nucleated RBC % Seg Neutrophils # Man Lymphocytes # (Manual) Monocytes # (Manual) PT INR D-Dimer 5410.10 H ABG pH POC ABG pCO2 POC ABG pO2 ABG pO2 ABG HCO3 ABG Base Excess ABG Hemoglobin ABG Oxyhemoglobin ABG Sodium ABG Chloride ABG Glucose Oxyhemoglobin Carboxyhemoglobin Sodium Potassium Chloride Carbon Dioxide BUN Creatinine Glucose POC Glucose 161 H 130 H Calcium Ionized Calcium Total Bilirubin AST ALT Total Creatine Kinase Troponin T NT-Pro-B Natriuret Pep Total Protein Albumin LDL Cholesterol Direct HDL Cholesterol TSH Free T4 Arterial Blood Glucose 04/17/21 04/18/21 04/18/21 21:52 10:20 11:58 WBC Hgb Hct MCV MCH MCHC RDW Seg Neuts % (Manual) Lymphocytes % (Manual) Nucleated RBC % Seg Neutrophils # Man Lymphocytes # (Manual) Monocytes # (Manual) PT INR D-Dimer ABG pH POC ABG pCO2 POC ABG pO2 ABG pO2 ABG HCO3 ABG Base Excess ABG Hemoglobin ABG Oxyhemoglobin ABG Sodium ABG Chloride ABG Glucose Oxyhemoglobin Carboxyhemoglobin Sodium 146 H D Potassium Chloride Carbon Dioxide BUN 75 H Creatinine 1.6 H Glucose 158 H POC Glucose 150 H 143 H Calcium Ionized Calcium Total Bilirubin AST ALT Total Creatine Kinase Troponin T NT-Pro-B Natriuret Pep Total Protein Albumin LDL Cholesterol Direct HDL Cholesterol TSH Free T4 Arterial Blood Glucose 04/18/21 04/18/21 04/18/21 14:19 16:55 16:55 WBC Hgb 8.3 L Hct 27.7 L MCV MCH MCHC RDW Seg Neuts % (Manual) Lymphocytes % (Manual) Nucleated RBC % Seg Neutrophils # Man Lymphocytes # (Manual) Monocytes # (Manual) PT 18.7 H INR 1.51 H D-Dimer ABG pH POC ABG pCO2 67.4 H POC ABG pO2 150.6 H ABG pO2 ABG HCO3 ABG Base Excess ABG Hemoglobin 9.3 L ABG Oxyhemoglobin ABG Sodium ABG Chloride ABG Glucose 162 H Oxyhemoglobin Carboxyhemoglobin 1.6 H Sodium Potassium Chloride Carbon Dioxide BUN Creatinine Glucose POC Glucose Calcium Ionized Calcium Total Bilirubin AST ALT Total Creatine Kinase Troponin T NT-Pro-B Natriuret Pep Total Protein Albumin LDL Cholesterol Direct HDL Cholesterol TSH Free T4 Arterial Blood Glucose 162 H 04/18/21 04/18/21 04/18/21 17:40 19:55 19:55 WBC Hgb Hct MCV MCH MCHC RDW Seg Neuts % (Manual) Lymphocytes % (Manual) Nucleated RBC % Seg Neutrophils # Man Lymphocytes # (Manual) Monocytes # (Manual) PT INR D-Dimer ABG pH POC ABG pCO2 POC ABG pO2 ABG pO2 ABG HCO3 ABG Base Excess ABG Hemoglobin ABG Oxyhemoglobin ABG Sodium ABG Chloride ABG Glucose Oxyhemoglobin Carboxyhemoglobin Sodium Potassium Chloride Carbon Dioxide BUN Creatinine Glucose POC Glucose 151 H Calcium Ionized Calcium Total Bilirubin AST ALT Total Creatine Kinase Troponin T NT-Pro-B Natriuret Pep Total Protein Albumin LDL Cholesterol Direct HDL Cholesterol TSH 6.140 H Free T4 0.67 L Arterial Blood Glucose 04/18/21 04/19/21 04/19/21 22:19 04:40 04:40 WBC Hgb 8.1 L Hct 27.5 L MCV 73 L MCH 22 L MCHC RDW 25.4 H Seg Neuts % (Manual) Lymphocytes % (Manual) Nucleated RBC % Seg Neutrophils # Man Lymphocytes # (Manual) Monocytes # (Manual) PT INR D-Dimer ABG pH POC ABG pCO2 POC ABG pO2 ABG pO2 ABG HCO3 ABG Base Excess ABG Hemoglobin ABG Oxyhemoglobin ABG Sodium ABG Chloride ABG Glucose Oxyhemoglobin Carboxyhemoglobin Sodium Potassium Chloride Carbon Dioxide 37 H D BUN 76 H Creatinine 1.6 H Glucose 173 H POC Glucose 157 H Calcium Ionized Calcium Total Bilirubin AST ALT Total Creatine Kinase Troponin T NT-Pro-B Natriuret Pep Total Protein Albumin LDL Cholesterol Direct HDL Cholesterol TSH Free T4 Arterial Blood Glucose 04/19/21 04/19/21 04/19/21 11:36 17:20 21:17 WBC Hgb Hct MCV MCH MCHC RDW Seg Neuts % (Manual) Lymphocytes % (Manual) Nucleated RBC % Seg Neutrophils # Man Lymphocytes # (Manual) Monocytes # (Manual) PT INR D-Dimer ABG pH POC ABG pCO2 POC ABG pO2 ABG pO2 ABG HCO3 ABG Base Excess ABG Hemoglobin ABG Oxyhemoglobin ABG Sodium ABG Chloride ABG Glucose Oxyhemoglobin Carboxyhemoglobin Sodium Potassium Chloride Carbon Dioxide BUN Creatinine Glucose POC Glucose 168 H 174 H 163 H Calcium Ionized Calcium Total Bilirubin AST ALT Total Creatine Kinase Troponin T NT-Pro-B Natriuret Pep Total Protein Albumin LDL Cholesterol Direct HDL Cholesterol TSH Free T4 Arterial Blood Glucose 04/20/21 04/20/21 04/20/21 04:22 11:27 17:12 WBC Hgb Hct MCV MCH MCHC RDW Seg Neuts % (Manual) Lymphocytes % (Manual) Nucleated RBC % Seg Neutrophils # Man Lymphocytes # (Manual) Monocytes # (Manual) PT INR D-Dimer ABG pH POC ABG pCO2 POC ABG pO2 ABG pO2 ABG HCO3 ABG Base Excess ABG Hemoglobin ABG Oxyhemoglobin ABG Sodium ABG Chloride ABG Glucose Oxyhemoglobin Carboxyhemoglobin Sodium 147 H Potassium Chloride Carbon Dioxide 37 H BUN 74 H Creatinine 1.3 H Glucose 193 H POC Glucose 154 H 162 H Calcium Ionized Calcium Total Bilirubin AST ALT Total Creatine Kinase Troponin T NT-Pro-B Natriuret Pep Total Protein Albumin LDL Cholesterol Direct HDL Cholesterol TSH Free T4 Arterial Blood Glucose 04/20/21 04/21/21 21:59 09:05 WBC Hgb Hct MCV MCH MCHC RDW Seg Neuts % (Manual) Lymphocytes % (Manual) Nucleated RBC % Seg Neutrophils # Man Lymphocytes # (Manual) Monocytes # (Manual) PT INR D-Dimer ABG pH POC ABG pCO2 POC ABG pO2 ABG pO2 ABG HCO3 ABG Base Excess ABG Hemoglobin ABG Oxyhemoglobin ABG Sodium ABG Chloride ABG Glucose Oxyhemoglobin Carboxyhemoglobin Sodium Potassium Chloride Carbon Dioxide BUN Creatinine Glucose POC Glucose 160 H 168 H Calcium Ionized Calcium Total Bilirubin AST ALT Total Creatine Kinase Troponin T NT-Pro-B Natriuret Pep Total Protein Albumin LDL Cholesterol Direct HDL Cholesterol TSH Free T4 Arterial Blood Glucose Allied health notes reviewed: nursing
--- NOTE | 2021-04-21 12:14 | Progress Note ---
Assessment and Plan Assessment Acute kidney injury, unknown baseline. Renal ultrasound notes poor visualization due to body habitus. Hypernatremia Hyperkalemia Hypocalcemia Morbid obesity Acute hypoxemic and hypercapnic respiratory failure Acute exacerbation of CHF (congestive heart failure) Hypertension Sleep apnea Recommendations Na higher yesterday at 147, off sodium tabs, no labs for review today Increase free water intake as able, if unable to drink, will consider D5W Creatinine improving to 1.3 echo noted, likely diastolic disease Avoid diuresis if able given hypernatremia, note good urine output Maintain MAP more than 65 Hold SUNG/ARB at this time Renally dose medications Avoid nephrotoxins Renal diet Daily renal labs Subjective Date of service: 04/21/21 Principal diagnosis: Ac hypoxemic and hypercapnic resp failure; AE-CHF; Morbid obesity; CLAUDIA/OHS Interval history: Patient was seen for her renal issues-off Bipap this AM, on NC Nursing, interdisciplinary and consult notes were reviewed Vitals, input and output, medications and labs were reviewed Objective - Exam Narrative Exam: General: Morbid obesity, on NC, mild discomfort HEENT: Oral mucosa moist Neck: Supple, no JVD Chest: labored breathing on NC Heart: RRR, S1 and S2 Abdomen: Soft, nontender Extremity: No peripheral cyanosis, edema Neurological: Awake and alert Dermatology: skin intact Psych: Calm and cooperative Musculoskeletal: No joint effusion - Vital Signs Vital signs: Vital Signs - 12hr 04/21/21 04/21/21 04/21/21 02:59 03:00 04:05 Temperature 98.6 F Pulse Rate 101 H Pulse Rate [ Anterior Bilateral Throughout] Respiratory 30 H Rate Respiratory Rate [Anterior Bilateral Throughout] Blood Pressure 158/92 Blood Pressure [Right] O2 Sat by Pulse 100 100 Oximetry 04/21/21 04/21/21 04/21/21 04:29 09:02 09:14 Temperature 97.9 F 98.6 F Pulse Rate 101 H 102 H Pulse Rate [ Anterior Bilateral Throughout] Respiratory 30 H 30 H 30 H Rate Respiratory Rate [Anterior Bilateral Throughout] Blood Pressure Blood Pressure 158/92 158/92 [Right] O2 Sat by Pulse 95 100 Oximetry 04/21/21 04/21/21 04/21/21 09:47 09:48 11:30 Temperature 97.3 F L Pulse Rate 108 H Pulse Rate [ 105 H Anterior Bilateral Throughout] Respiratory 26 H Rate Respiratory 20 Rate [Anterior Bilateral Throughout] Blood Pressure Blood Pressure 108/80 [Right] O2 Sat by Pulse 98 93 Oximetry 04/21/21 11:51 Temperature 97.3 F L Pulse Rate Pulse Rate [ Anterior Bilateral Throughout] Respiratory 26 H Rate Respiratory Rate [Anterior Bilateral Throughout] Blood Pressure 108/80 Blood Pressure [Right] O2 Sat by Pulse Oximetry - Lab 04/19/21 04:40 04/20/21 04:22 Most recent lab results ABG pH 7.382 (7.320-7.450) 04/18/21 14:19 ABG pCO2 86.9 mm Hg 04/13/21 18:40 ABG pO2 81.8 mm Hg (80.0-90.0) 04/13/21 18:40 ABG HCO3 36.2 mmol/L (20.0-26.0) H 04/13/21 18:40 ABG O2 Saturation 99.4 (0-100) 04/18/21 14:19 Calcium 9.2 mg/dL (8.4-10.2) 04/20/21 04:22 Urine Sodium 16 mmol/L 04/09/21 18:46 Medications & Allergies - Medications Allergies/Adverse Reactions: Allergies No Known Allergies Allergy (Unverified 01/27/17 11:17) Home Medications: Home Medications Medication Instructions Recorded Confirmed Last Taken Type Acetaminophen [Acetaminophen TAB] 325 mg PO Q4H PRN #30 tablet 06/30/17 08/08/20 Unknown Rx ALBUTEROL NEB's [Proventil 0.083% 2.5 mg IH Q3HRT PRN #30 day 08/10/20 Unknown Rx NEBS] Albuterol Mdi (or & Nicu Only) 2 puff IH QID PRN #1 inhalation 08/10/20 Unknown Rx [ProAir HFA Inhaler] Azithromycin [Zithromax Z-BIN] 0 mg PO DAILY #1 tab 08/10/20 Unknown Rx Benzonatate [Tessalon Perles] 100 mg PO Q8HR #15 capsule 08/10/20 Unknown Rx Famotidine [Pepcid] 20 mg PO BID #14 tablet 08/10/20 Unknown Rx Ipratropium/Albuterol Sulfate 1 ampul IH TIDRT #30 day 08/10/20 Unknown Rx [DUONEB *Not for PRN Use*] hydroCHLOROthiazide [HCTZ] 25 mg PO QDAY tablet 08/10/20 Unknown Rx hydroCHLOROthiazide [HCTZ] 25 mg PO QDAY #30 tablet 08/10/20 Unknown Rx methylPREDNISolone [Medrol 4MG 4 mg PO DAILY #1 tab.ds.pk 08/10/20 Unknown Rx DOSEPAK (21 tabs)] Active Medications: Generic Name Dose Route Start Last Admin Trade Name Freq PRN Reason Stop Dose Admin Acetaminophen 650 mg 04/08/21 03:00 04/17/21 06:42 Acetaminophen 325 Mg Tab PO 650 mg Q4H PRN Administration Pain MILD(1-3)/Fever >100.5/BROWN Albuterol 2.5 mg 04/08/21 03:00 Albuterol 2.5 Mg/3 Ml Nebu IH Q4HRT PRN Shortness Of Breath Albuterol/Ipratropium 1 ampul 04/08/21 08:00 04/21/21 09:20 Ipratropium/Albuterol Sulfate 3 Ml Ampul.Neb IH 1 ampul TIDRT EKATERINA Administration Aspirin 325 mg 04/09/21 10:00 04/21/21 10:55 Aspirin Ec 325 Mg Tab PO 325 mg QDAY EKATERINA Administration Atorvastatin Calcium 40 mg 04/08/21 22:00 04/20/21 21:42 Atorvastatin 40 Mg Tab PO 40 mg QHS EKATERINA Administration Benzonatate 100 mg 04/08/21 06:00 04/21/21 06:03 Benzonatate 100 Mg Cap PO Not Given Q8HR EKATERINA Guaifenesin 200 mg 04/12/21 14:47 04/17/21 06:43 Guaifenesin 100 Mg/5 Ml Oral Liqd PO 200 mg Q4H PRN Administration Cough Haloperidol Lactate 5 mg 04/18/21 16:27 04/21/21 03:30 Haloperidol Lactate 5 Mg/1 Ml Inj IV 5 mg Q6H PRN Administration Agitation Heparin Sodium (Porcine) 5,000 unit 04/18/21 14:00 04/21/21 05:57 Heparin 5,000 Unit/1 Ml Vial SUB-Q 5,000 unit Q8HR EKATERINA Administration Hydralazine HCl 10 mg 04/19/21 17:25 04/20/21 18:27 Hydralazine 20 Mg/1 Ml Inj IV 10 mg Q6H PRN Administration Blood Pressure Levothyroxine Sodium 100 mcg 04/20/21 06:00 04/21/21 05:57 Levothyroxine 100 Mcg Inj IV 100 mcg DAILY@0600 EKATERINA Administration Methylprednisolone Sodium Succinate 20 mg 04/16/21 10:00 04/21/21 10:55 Methylprednisolone Sod Succinate 40 Mg/1 Ml Inj IV 20 mg Q12HR EKATERINA Administration Nitroglycerin 0.4 mg 04/08/21 03:00 Nitroglycerin 0.4 Mg Tab Subl SL Q5M PRN Chest Pain Nystatin 1 applic 04/08/21 18:00 04/21/21 10:58 Nystatin Powder 15 Gm TP 1 applic BID EKATERINA Administration Ondansetron HCl 4 mg 04/08/21 03:00 04/15/21 23:51 Ondansetron 4 Mg/2 Ml Inj IV 4 mg Q8H PRN Administration Nausea And Vomiting Oxycodone/Acetaminophen 1 tab 04/08/21 03:00 04/17/21 21:19 Oxycodone /Acetaminophen 5-325mg Tab PO 1 tab Q6H PRN Administration Pain, Moderate (4-6) Pantoprazole Sodium 40 mg 04/16/21 10:00 04/21/21 10:55 Pantoprazole 40 Mg Inj IV 40 mg QDAY EKATERINA Administration Quetiapine Fumarate 75 mg 04/18/21 22:00 04/20/21 21:43 Quetiapine 25 Mg Tab PO 75 mg QHS EKATERINA Administration Sodium Chloride 10 ml 04/08/21 10:00 04/21/21 10:55 Sodium Chloride 0.9% 10 Ml Flush Syringe IV 10 ml BID EKATERINA Administration Sodium Chloride 10 ml 04/08/21 03:00 Sodium Chloride 0.9% 10 Ml Flush Syringe IV PRN PRN LINE FLUSH Tramadol HCl 50 mg 04/08/21 03:00 04/20/21 21:50 Tramadol 50 Mg Tab PO 50 mg Q6H PRN Administration Pain, Moderate (4-6)
--- NOTE | 2021-04-21 16:15 | Progress Note ---
Assessment and Plan Assessment and plan: -- Non-ST elevation WI (NSTEMI) type II Procardia Current Visit: Yes Status: Acute Plan to address problem: Admit the patient to the medical telemetry. Aspirin 325 mg p.o. daily. Lipitor 40 mg p.o. daily. Nitroglycerin as needed. We do the serial cardiac enzyme. We also consult cardiology for evaluation and order echocardiogram. -- Acute exacerbation of CHF (congestive heart failure) Current Visit: Yes Status: Acute Plan to address problem: Fluid restriction. Maintain input output. Lasix 40 mg IV every 12 hours. Oxygen via nasal cannula 3 L/min. DuoNeb by nebulizer every 4 hours. Echocardiogram. Cardiology consult -- hypothyroidism -new diagnosis -- COPD (chronic obstructive pulmonary disease) Current Visit: Yes Status: Acute Plan to address problem: Oxygen by nasal cannula 3 L/min. DuoNeb via nebulizer every 4 hours. Albuterol via nebulizer every 4 hours as needed. -- Morbid obesity Current Visit: Yes Status: Acute Plan to address problem: We counseled regarding weight reduction. Outpatient follow-up with bariatric surgeon -- Hyperglycemia Current Visit: Yes Status: Acute Plan to address problem: We will give 1 ampoule of D50. We will put the patient on cardiac diet. We will monitor the blood glucose closely. --acute kidney injury with vasomotor nephropathy -- Lymphedema of the abdominal wall Due to morbid obesity, supportive care fluid restriction Low-sodium diet --Anemia of chronic disease; Closely monitor H&H, transfuse as needed --Acute transaminitis acute liver failure Acute transaminitis; LFTs trending down Hepatocellular pattern, multifactorial NAFLD, congestive hepatopathy, DILI, GI evaluation and recommendations noted, LFTs trending down -- hypertension Current Visit: Yes Status: Acute Plan to address problem: We will continue the home medication. Hydralazine 10 mg IV every 6 hours as needed. We will monitor the blood pressure closely -- DVT prophylaxis Current Visit: No Status: Acute Plan to address problem: Heparin 5000 units subcu every 8 hours for DVT prophylaxis. Pepcid 20 mg p.o. twice daily for GI prophylaxis. Patient is a full code 04/09 -Patient is on heparin drip for non-STEMI, cardiology is following. -Patient is off Lasix and SUNG inhibitors because of GILBERTO. -Kidney function is worsening overnight and I put a consult for nephrology. -Patient is hypotensive and blood pressure from this morning was 101/41. We will continue to monitor. And if it is dropping we we will give him fluid. -Echo was done and EF of 50 to 55%. Diastolic dysfunction is indeterminate. Management per cardiology -Patient has COPD continues on dexamethasone, nebulizer treatment as needed. -Patient has hyponatremia and hyperkalemia. I give the patient Kayexalate. Monitor electrolytes. Will follow nephrology for additional recommendation. 04/10 -Renal function is worsening, nephrology is following -Blood pressure is better today -Hyperkalemia; I added Kayexalate -Morbid obesity 04/11 -Slight improvement in creatinine. Hyponatremia worsened. Nephrology is following and put the patient back on Lasix. -Blood PRESSURE IS BETTER today -Potassium this morning was 5.8, I ordered 60 g of Kayexalate -Morbidly obese -Obesity hypoventilation syndrome 04/12 -Creatinine is improving and this morning was 2.4 -Hyponatremia improved this morning was 134. Patient is on Lasix -Blood pressure is better -Patient is on 10 L of oxygen; worsened -Morbidly obese, CLAUDIA 04/13: Follow ordered ultrasound of abdomen, per Physician unable to get CT. I ordered an ABG due to my concern about her breathing pattern this morning, patient may benefit from. Will try to establish if patient has a primary pulmonary doctor. ABG is showing consistent with Respiratory Acidosis. Will place on BIPAP now. May need to transfer to IMCU for closer monitoring. Patient likely with Obesity Hypoventilation syndrome. cardiology work up, ongoing. RENAL SHOWING SOME IMPROVEMENT Guarded prognosis 04/14: Patient seen and examined today identified some lesion under the pannus will obtain wound care and wound surgeon evaluation. Nephrology input noted continue diuresis and stop the sodium tabs creatinine is stable. I did discuss with the family and updated them. We will continue to hold SUNG and ARB and if pressures continue to drop may need to hold diuresis also despite as written above. Monitor labs including H&H. She is more awake review of ABG shows improving CO2. Will discuss with case management as patient may need BiPAP on discharge home. I also updated the family 04/15: Patient showing some clinical improvement. Liver enzymes is showing mild improvement although bilirubin increased slightly. GI input noted and as discussed by his notes below "Abnormal liver enzymes in hepatocellular pattern. broad ddx and likely multifactorial causes including NAFLD, congestive hepatopathy, possibly DILI. will check viral hep serologies. US with limited views, possible coarsening of the liver" Patient also evaluated by surgery noted with the lymphedema of abdominal wall and open wound of the abdominal wall without penetration into the abdominal cavity with recommendation to pack the wounds daily with mesalt. Need to maintain dry environment discussed with nursing staff. Elevate the pannus and optimize nutrition for which I will get nutritional consult. No surgical intervention at this time. Patient is bedbound when I asked when last she ambulated she said while "I guess he has not worked" but it has been a while. Unfortunately the LTAC center unwilling to accept the patient will discuss with pulmonary and with case management about obtaining BiPAP for this patient and possible SNF referral. 04/16: Patient this morning and was noted significantly lethargic and unresponsive respiratory and a code to be called. The patient resuscitated without any invasive procedure. ABG was obtained showed a CO2 of 142. Despite using BiPAP for some time through the night, sure how long she used it for. I have discontinued all IV opioids and recommend no IV opioids for this patient at this time. I also discontinued p.o. medications as an essential medication and change to IV. We will repeat an ABG in an hour to see if there is some improvement. Patient remains at high risk for possible intubation. Clinical condition is guarded 1: Patient remains on BiPAP this am, has some intermittent twitching, will check EEG, not likely seizure, but will monitor. Continue current management , check Albumin and Pre-Albumin level. Remains critically ill. Liver status showing improvement. 04/18: Patient with elevated D-dimer unfortunately size precludes being able to have a CTA chest done here to rule out pulmonary embolism. Doppler of lower extremities is pending. We will continue subcu anticoagulation with heparin at this time. Until Doppler is resolved. Patient is not hypoxic so doubt pulmonary embolism at this time. Her problem remains hypercapnia. I did take time to go over her history while she has been around hospital in the past and noticed a remarkable increase in her BMI from the last 2 years. Discussed with the circular tank cooper will agree to check thyroid function test. Critical care time 35- minute 3: Patient with hypothyroidism, while she does not appear to be with myxedema coma at this time. Will initiate levothyroxine as I believe that this will make profound impact her management at this time, continue BiPAP continue current management. Seroquel was added by pulmonary for delirium and agitation management, Ventimask during the day and BiPAP at night 04/20: Continue levothyroine, can change to PO in am. Will obtain Psych consult, she is clinically stable and will transfer to floor 04/21; levothyroxine changed to 100 mg p.o. daily Organ Recovery Coordinator recommendations noted and appreciated Monitor LFTs History Interval history: I have have seen and examined the patient in her room this morning during morning rounds Patient's chart and medications reviewed Patient is morbidly obese in mild distress Denies any chest pain or shortness of breath Vital signs noted Hospitalist Physical - Constitutional Vitals: Temp Pulse Resp BP Pulse Ox 97.3 F L 108 H 26 H 108/80 93 04/21/21 11:51 04/21/21 11:30 04/21/21 11:51 04/21/21 11:51 04/21/21 11:30 General appearance: Present: mild distress, well-nourished, obese - EENT Eyes: Present: PERRL (Morbidly obese), EOM intact - Neck Neck: Present: supple, normal ROM - Respiratory Respiratory effort: normal Respiratory: bilateral: diminished, rhonchi, negative: rales, wheezing - Cardiovascular Rhythm: regular Heart Sounds: Present: S1 & S2 - Extremities Extremities: no ischemia, No edema - Abdominal General gastrointestinal: soft, non-tender, non-distended, normal bowel sounds - Integumentary Integumentary: Present: clear, warm - Psychiatric Psychiatric: appropriate mood/affect, cooperative - Neurologic Neurologic: CNII-XII intact, moves all extremities HEART Score - HEART Score Troponin: Troponin T 0.078 ng/mL (0.00-0.029) H D 04/08/21 13:03 Results - Labs CBC & Chem 7: 04/19/21 04:40 04/20/21 04:22 Labs: Laboratory Last Values WBC 8.1 K/mm3 (4.5-11.0) 04/19/21 04:40 RBC 3.79 M/mm3 (3.65-5.03) 04/19/21 04:40 Hgb 8.1 gm/dl (10.1-14.3) L 04/19/21 04:40 Hct 27.5 % (30.3-42.9) L 04/19/21 04:40 MCV 73 fl (79-97) L 04/19/21 04:40 MCH 22 pg (28-32) L 04/19/21 04:40 MCHC 30 % (30-34) 04/19/21 04:40 RDW 25.4 % (13.2-15.2) H 04/19/21 04:40 Plt Count 224 K/mm3 (140-440) 04/19/21 04:40 Add Manual Diff Complete 04/12/21 14:11 Total Counted 100 04/12/21 14:11 Seg Neuts % (Manual) 86.0 % (40.0-70.0) H 04/12/21 14:11 Band Neutrophils % 1.0 % 04/12/21 14:11 Lymphocytes % (Manual) 6.0 % (13.4-35.0) L 04/12/21 14:11 Reactive Lymphs % (Man) 1.0 % 04/12/21 14:11 Monocytes % (Manual) 4.0 % (0.0-7.3) 04/12/21 14:11 Metamyelocytes % 2.0 % 04/12/21 14:11 Myelocytes % 2.0 % 04/08/21 04:03 Nucleated RBC % Not Reportable 04/12/21 14:11 Seg Neutrophils # Man 12.6 K/mm3 (1.8-7.7) H 04/12/21 14:11 Band Neutrophils # 0.1 K/mm3 04/12/21 14:11 Lymphocytes # (Manual) 0.9 K/mm3 (1.2-5.4) L 04/12/21 14:11 Abs React Lymphs (Man) 0.1 K/mm3 04/12/21 14:11 Monocytes # (Manual) 0.6 K/mm3 (0.0-0.8) 04/12/21 14:11 Eosinophils # (Manual) 0.0 K/mm3 (0.0-0.4) 04/12/21 14:11 Basophils # (Manual) 0.0 K/mm3 (0.0-0.1) 04/12/21 14:11 Metamyelocytes # 0.3 K/mm3 04/12/21 14:11 Myelocytes # 0.0 K/mm3 04/12/21 14:11 Promyelocytes # 0.0 K/mm3 04/12/21 14:11 Blast Cells # 0.0 K/mm3 04/12/21 14:11 WBC Morphology Not Reportable 04/12/21 14:11 WBC Morphology TNR 04/12/21 14:11 Hypersegmented Neuts Not Reportable 04/12/21 14:11 Hyposegmented Neuts Not Reportable 04/12/21 14:11 Hypogranular Neuts Not Reportable 04/12/21 14:11 Smudge Cells Not Reportable 04/12/21 14:11 Toxic Granulation Not Reportable 04/12/21 14:11 Toxic Vacuolation Not Reportable 04/12/21 14:11 Dohle Bodies Not Reportable 04/12/21 14:11 Pelger-Huet Anomaly Not Reportable 04/12/21 14:11 Ana Cristina Rods Not Reportable 04/12/21 14:11 Platelet Estimate Consistent w auto 04/12/21 14:11 Clumped Platelets Not Reportable 04/12/21 14:11 Plt Clumps, EDTA Not Reportable 04/12/21 14:11 Large Platelets Not Reportable 04/12/21 14:11 Giant Platelets Not Reportable 04/12/21 14:11 Platelet Satelliting Not Reportable 04/12/21 14:11 Plt Morphology Comment Not Reportable 04/12/21 14:11 RBC Morphology Not Reportable 04/12/21 14:11 Dimorphic RBCs Not Reportable 04/12/21 14:11 Polychromasia Few 04/12/21 14:11 Hypochromasia 1+ 04/12/21 14:11 Poikilocytosis Not Reportable 04/12/21 14:11 Anisocytosis Not Reportable 04/12/21 14:11 Microcytosis Not Reportable 04/12/21 14:11 Macrocytosis Not Reportable 04/12/21 14:11 Spherocytes Not Reportable 04/12/21 14:11 Pappenheimer Bodies Not Reportable 04/12/21 14:11 Sickle Cells Not Reportable 04/12/21 14:11 Target Cells 1+ 04/12/21 14:11 Tear Drop Cells Few 04/12/21 14:11 Ovalocytes Not Reportable 04/12/21 14:11 Helmet Cells Not Reportable 04/12/21 14:11 [place] Bodies Not Reportable 04/12/21 14:11 [place] Rings Not Reportable 04/12/21 14:11 [place] Cells Not Reportable 04/12/21 14:11 Bite Cells Not Reportable 04/12/21 14:11 Crenated Cell Not Reportable 04/12/21 14:11 Elliptocytes Not Reportable 04/12/21 14:11 Acanthocytes (Spur) Not Reportable 04/12/21 14:11 Rouleaux Not Reportable 04/12/21 14:11 Hemoglobin C Crystals Not Reportable 04/12/21 14:11 Schistocytes Not Reportable 04/12/21 14:11 Malaria parasites Not Reportable 04/12/21 14:11 Tyshawn Bodies Not Reportable 04/12/21 14:11 Hem Pathologist Commnt No 04/12/21 14:11 PT 18.7 Sec. (12.2-14.9) H 04/18/21 16:55 INR 1.51 (0.87-1.13) H 04/18/21 16:55 APTT 25.2 Sec. (24.2-36.6) 04/18/21 16:55 D-Dimer 5410.10 ng/mlDDU (0-234) H 04/17/21 16:03 ABG pH 7.382 (7.320-7.450) 04/18/21 14:19 POC ABG pCO2 67.4 mmHg (32.0-48.0) H 04/18/21 14:19 ABG pCO2 86.9 mm Hg 04/13/21 18:40 POC ABG pO2 150.6 mmHg (83-108) H 04/18/21 14:19 ABG pO2 81.8 mm Hg (80.0-90.0) 04/13/21 18:40 POC ABG HCO3 39.2 04/18/21 14:19 ABG HCO3 36.2 mmol/L (20.0-26.0) H 04/13/21 18:40 ABG O2 Saturation 99.4 (0-100) 04/18/21 14:19 ABG O2 Content 10.4 (0.0-44) 04/13/21 18:40 POC ABG Base Excess 12.2 04/18/21 14:19 ABG Base Excess 7.4 mmol/L (-2.0-3.0) H 04/13/21 18:40 ABG Hemoglobin 9.3 (12.0-17.5) L 04/18/21 14:19 ABG Oxyhemoglobin 97.5 (94-98) 04/18/21 14:19 ABG Carboxyhemoglobin 1.9 % (0.0-5.0) 04/13/21 18:40 ABG Methemoglobin 0.3 (0.0-1.5) 04/18/21 14:19 ABG Sodium 143.0 mmol/L (136.0-145.0) 04/18/21 14:19 ABG Potassium 4.2 mmol/L (3.40-4.50) 04/18/21 14:19 ABG Chloride 98.0 mmol/L (98-107) 04/18/21 14:19 ABG Glucose 162 mg/dL (65-95) H 04/18/21 14:19 Oxyhemoglobin 93.7 % (95.0-99.0) L 04/13/21 18:40 Carboxyhemoglobin 1.6 (0.5-1.5) H 04/18/21 14:19 FiO2 30 % 04/13/21 18:40 FiO2 % 35.0 04/18/21 14:19 Sodium 147 mmol/L (137-145) H 04/20/21 04:22 Potassium 4.8 mmol/L (3.6-5.0) 04/20/21 04:22 Chloride 100.6 mmol/L (98-107) 04/20/21 04:22 Carbon Dioxide 37 mmol/L (22-30) H 04/20/21 04:22 Anion Gap 14 mmol/L 04/20/21 04:22 BUN 74 mg/dL (7-17) H 04/20/21 04:22 Creatinine 1.3 mg/dL (0.6-1.2) H 04/20/21 04:22 Estimated GFR 57 ml/min 04/20/21 04:22 BUN/Creatinine Ratio 57 % 04/20/21 04:22 Glucose 193 mg/dL (65-100) H 04/20/21 04:22 POC Glucose 174 mg/dL (70-105) H 04/21/21 12:28 Osmolality 301 Mosm/kg 04/09/21 23:15 Calcium 9.2 mg/dL (8.4-10.2) 04/20/21 04:22 Ionized Calcium 3.6 mg/dL (4.8-5.6) L 04/09/21 23:15 Total Bilirubin 1.60 mg/dL (0.1-1.2) H 04/17/21 08:55 AST 172 units/L (5-40) H 04/17/21 08:55 ALT 437 units/L (7-56) H 04/17/21 08:55 Alkaline Phosphatase 92 units/L (35-129) 04/17/21 08:55 Total Creatine Kinase 1712 units/L (30-135) H 04/10/21 10:04 Troponin T 0.078 ng/mL (0.00-0.029) H D 04/08/21 13:03 NT-Pro-B Natriuret Pep 7573 pg/mL (0-450) H 04/07/21 22:04 Total Protein 10.1 g/dL (6.3-8.2) H 04/17/21 08:55 Albumin 3.2 g/dL (3.9-5) L 04/17/21 08:55 Albumin/Globulin Ratio 0.5 % 04/17/21 08:55 Triglycerides 105 mg/dL (2-149) 04/07/21 22:04 Cholesterol 85 mg/dL (50-199) 04/07/21 22:04 LDL Cholesterol Direct 47 mg/dL (50-130) L 04/07/21 22:04 HDL Cholesterol 25 mg/dL (40-59) L 04/07/21 22:04 Cholesterol/HDL Ratio 3.40 % 04/07/21 22:04 TSH 6.140 mlU/mL (0.270-4.200) H 04/18/21 19:55 Free T4 0.67 ng/dL (0.76-1.46) L 04/18/21 19:55 Total Cortisol 41.3 mcg/dL () 04/10/21 10:04 Arterial Blood Glucose 162 mg/dL (65-95) H 04/18/21 14:19 Arterial Blood Ionized Calcium 4.6 mg/dL (4.6-5.3) 04/16/21 07:32 Urine Osmolality 157 Mosm/kg 04/09/21 18:46 Urine Sodium 16 mmol/L 04/09/21 18:46 Coronavirus (PCR) Negative (Negative) 04/14/21 Unknown Hepatitis A IgM Ab Non-reactive (NonReactive) 04/14/21 18:45 Hep Bs Antigen Nonreactive (Negative) 04/14/21 18:45 Hepatitis C Antibody Non-reactive (NonReactive) 04/14/21 18:45 Zambrano/IV: Voiding Method Indwelling Catheter Active Medications - Current Medications Current Medications: Generic Name Dose Route Start Last Admin Trade Name Freq PRN Reason Stop Dose Admin Acetaminophen 650 mg 04/08/21 03:00 04/17/21 06:42 Acetaminophen 325 Mg Tab PO 650 mg Q4H PRN Administration Pain MILD(1-3)/Fever >100.5/BROWN Albuterol 2.5 mg 04/08/21 03:00 Albuterol 2.5 Mg/3 Ml Nebu IH Q4HRT PRN Shortness Of Breath Albuterol/Ipratropium 1 ampul 04/08/21 08:00 04/21/21 16:07 Ipratropium/Albuterol Sulfate 3 Ml Ampul.Neb IH 1 ampul TIDRT EKATERINA Administration Aspirin 325 mg 04/09/21 10:00 04/21/21 10:55 Aspirin Ec 325 Mg Tab PO 325 mg QDAY EKATERINA Administration Atorvastatin Calcium 40 mg 04/08/21 22:00 04/20/21 21:42 Atorvastatin 40 Mg Tab PO 40 mg QHS EKATERINA Administration Benzonatate 100 mg 04/08/21 06:00 04/21/21 14:19 Benzonatate 100 Mg Cap PO 100 mg Q8HR EKATERINA Administration Guaifenesin 200 mg 04/12/21 14:47 04/17/21 06:43 Guaifenesin 100 Mg/5 Ml Oral Liqd PO 200 mg Q4H PRN Administration Cough Haloperidol Lactate 5 mg 04/18/21 16:27 04/21/21 03:30 Haloperidol Lactate 5 Mg/1 Ml Inj IV 5 mg Q6H PRN Administration Agitation Heparin Sodium (Porcine) 5,000 unit 04/18/21 14:00 04/21/21 14:19 Heparin 5,000 Unit/1 Ml Vial SUB-Q 5,000 unit Q8HR EKATERINA Administration Hydralazine HCl 10 mg 04/19/21 17:25 04/20/21 18:27 Hydralazine 20 Mg/1 Ml Inj IV 10 mg Q6H PRN Administration Blood Pressure Levothyroxine Sodium 100 mcg 04/20/21 06:00 04/21/21 05:57 Levothyroxine 100 Mcg Inj IV 100 mcg DAILY@0600 EKATERINA Administration Methylprednisolone Sodium Succinate 20 mg 04/16/21 10:00 04/21/21 10:55 Methylprednisolone Sod Succinate 40 Mg/1 Ml Inj IV 20 mg Q12HR EKATERINA Administration Nitroglycerin 0.4 mg 04/08/21 03:00 Nitroglycerin 0.4 Mg Tab Subl SL Q5M PRN Chest Pain Nystatin 1 applic 04/08/21 18:00 04/21/21 10:58 Nystatin Powder 15 Gm TP 1 applic BID EKATERINA Administration Ondansetron HCl 4 mg 04/08/21 03:00 04/15/21 23:51 Ondansetron 4 Mg/2 Ml Inj IV 4 mg Q8H PRN Administration Nausea And Vomiting Oxycodone/Acetaminophen 1 tab 04/08/21 03:00 04/17/21 21:19 Oxycodone /Acetaminophen 5-325mg Tab PO 1 tab Q6H PRN Administration Pain, Moderate (4-6) Pantoprazole Sodium 40 mg 04/16/21 10:00 04/21/21 10:55 Pantoprazole 40 Mg Inj IV 40 mg QDAY EKATERINA Administration Quetiapine Fumarate 75 mg 04/18/21 22:00 04/20/21 21:43 Quetiapine 25 Mg Tab PO 75 mg QHS EKATERINA Administration Sodium Chloride 10 ml 04/08/21 10:00 04/21/21 10:55 Sodium Chloride 0.9% 10 Ml Flush Syringe IV 10 ml BID EKATERINA Administration Sodium Chloride 10 ml 04/08/21 03:00 Sodium Chloride 0.9% 10 Ml Flush Syringe IV PRN PRN LINE FLUSH Tramadol HCl 50 mg 04/08/21 03:00 04/20/21 21:50 Tramadol 50 Mg Tab PO 50 mg Q6H PRN Administration Pain, Moderate (4-6) Nutrition/Malnutrition Assess - Dietary Evaluation Nutrition/Malnutrition Findings: Nutrition Notes Start: 04/08/21 14:21 Freq: Status: Active Protocol: Document 04/20/21 15:55 MARIELY (Rec: 04/20/21 16:53 MARIELY [email or web address]) Nutrition Notes Need for Assessment generated from: bookkeeper receptionist Initial or Follow up Reassessment Current Diagnosis Heart Failure Other Pertinent Diagnosis Accute Kidney Injury Current Diet Renal Diet (from B 04/13). Labs/Tests 04/20: Na 147, CO2 37, BUN 74, Cr 1.3, Glu 193. Pertinent Medications Reviewed. Height 5 ft 4 in Weight 277.3 kg [place] Body Weight (kg) 54.54 BMI 104.9 Intake Prior to Admission Good Weight change and time frame expect weight fluctuations r/t fluid therapy, CHF complications Weight Status Morbidly Obese Subjective/Other Information Pt developed accute renal condition that requires support from Renal Diet. Percent of energy/protein needs met: Renal diet provides all energy /protein needs (2072 Kcal/77 g ) per day. Burn Absent Trauma Absent GI Symptoms None Food Allergy No Skin Integrity/Comment Integumentary: clear, warm, dry. Current % PO Good (75-100%) Minimum of two criteria No physical signs of malnutrition #1 Nutrition Diagnosis Altered nutrition-related laboratory values,Overweight/ obesity Comments: Pt developed accute renal condition that requires support from Renal Diet. Etiology Accute Kidney Injury resulted from complications from concomitant conditions As Evidenced by Signs and Symptoms Altered lab values and MD diagnosis Diagnosis Progress(for reassessment Worsened documentation) Is patient on ventilator? No Is Patient Ambulatory and/or Out of Bed Yes REE-([place]-St. Jeor-ambulatory/OOB) [ 4501.900 [id number]] Kcal/Kg value to use for calculation 10 Approximate Energy Requirements Using 2773 kcal/Kg Calculation Used for Recommendations Kcal/Kg of IBW Additional Notes Protein 1.0 g/Kg; 55 g/day; 220 Kcal/day (from IBW). Fluids: 1ml/kcal or per MD Nutrition Intervention Change Diet Order: Continue Renal Diet as MD prescribed. Teaching Recipient Patient Learning Readiness Good Teaching Methods Discussion Response to Teaching Verbalize understanding, Reinforcement needed Barriers to Learning Motivation,Emotional,Social Patient aware of follow up options Yes Actions To Overcome Barriers Collaboration with Other Providers Goal #1 Achieve and maintain acceptable chemistry lab values during LOS Goal #2 Support Improvement in renal functions while providing energy/protein needs during LOS Follow-Up By: 04/27/21 Additional Comments Continue monitoring % of food intake and tolerance, and BM. Reinforce education towards bariatric therapy after accute kidney injury is solved.
[2021-04-21] MEDS: oxyCODONE /ACETAMINOPHEN 5-325MG TAB PO PRN (16:26)
[2021-04-21] MEDS: QUEtiapine 25 MG TAB PO SCH (22:24)
[2021-04-22] MEDS: LEVOTHYROXINE 100 MCG TAB PO SCH (05:58)
[2021-04-22] MEDS: BENZONATATE 100 MG CAP PO SCH ×3 (05:58→22:27)
[2021-04-22] MEDS: HEPARIN 5,000 UNIT/1 ML VIAL SUB-Q SCH ×3 (05:58→22:26)
[2021-04-22] MEDS: IPRATROPIUM/ALBUTEROL SULFATE 3 ML AMPUL.NEB IH SCH ×3 (08:06→20:34)
[2021-04-22] MEDS: hydrALAZINE 20 MG/1 ML INJ IV PRN (08:54)
[2021-04-22] MEDS: PANTOPRAZOLE 40 MG INJ IV SCH (09:15)
[2021-04-22] MEDS: ASPIRIN EC 325 MG TAB PO SCH (09:15)
[2021-04-22] MEDS: methylPREDNISolone Sod Succinate 40 MG/1 ML INJ IV SCH ×2 (09:16→22:26)
--- NOTE | 2021-04-22 10:30 | Progress Note ---
Assessment and Plan Assessment Acute kidney injury, unknown baseline. Renal ultrasound notes poor visualization due to body habitus. Hypernatremia Hyperkalemia Hypocalcemia Morbid obesity Acute hypoxemic and hypercapnic respiratory failure Acute exacerbation of CHF (congestive heart failure) Hypertension Sleep apnea Recommendations Na higher previously at 147, off sodium tabs, no labs for review today Increase free water intake as able, if unable to drink, will consider D5W Creatinine improving to 1.3 Excellent urine output noted Recommend carvedilol 12.5mg BID given high BP, tachycardia echo noted, likely diastolic disease Avoid diuresis if able given hypernatremia, note good urine output Maintain MAP more than 65 Hold SUNG/ARB at this time Renally dose medications Avoid nephrotoxins Renal diet Daily renal labs Subjective Date of service: 04/22/21 Principal diagnosis: Ac hypoxemic and hypercapnic resp failure; AE-CHF; Morbid obesity; CLAUDIA/OHS Interval history: Patient was seen for her renal issues-off Bipap this AM, on NC Nursing, interdisciplinary and consult notes were reviewed Vitals, input and output, medications and labs were reviewed Objective - Exam Narrative Exam: General: Morbid obesity, on NC, mild discomfort HEENT: Oral mucosa moist Neck: Supple, no JVD Chest: labored breathing on NC Heart: RRR, S1 and S2 Abdomen: Soft, nontender Extremity: No peripheral cyanosis, edema Neurological: Awake and alert Dermatology: skin intact Psych: Calm and cooperative Musculoskeletal: No joint effusion - Vital Signs Vital signs: Vital Signs - 12hr 04/21/21 04/22/21 04/22/21 23:45 00:00 01:38 Temperature 98.4 F Pulse Rate 104 H 104 H Respiratory 18 31 H Rate Blood Pressure 136/83 Blood Pressure [Right] O2 Sat by Pulse 98 Oximetry 04/22/21 04/22/21 04/22/21 03:46 08:30 08:47 Temperature 98.4 F 97.2 F L Pulse Rate 108 H Respiratory 20 24 Rate Blood Pressure 142/87 165/117 Blood Pressure 165/117 [Right] O2 Sat by Pulse 98 Oximetry 04/22/21 08:54 Temperature Pulse Rate Respiratory Rate Blood Pressure 165/117 Blood Pressure [Right] O2 Sat by Pulse Oximetry - Lab 04/19/21 04:40 04/20/21 04:22 Most recent lab results ABG pH 7.382 (7.320-7.450) 04/18/21 14:19 ABG pCO2 86.9 mm Hg 04/13/21 18:40 ABG pO2 81.8 mm Hg (80.0-90.0) 04/13/21 18:40 ABG HCO3 36.2 mmol/L (20.0-26.0) H 04/13/21 18:40 ABG O2 Saturation 99.4 (0-100) 04/18/21 14:19 Calcium 9.2 mg/dL (8.4-10.2) 04/20/21 04:22 Urine Sodium 16 mmol/L 04/09/21 18:46 Medications & Allergies - Medications Allergies/Adverse Reactions: Allergies No Known Allergies Allergy (Unverified 01/27/17 11:17) Home Medications: Home Medications Medication Instructions Recorded Confirmed Last Taken Type Acetaminophen [Acetaminophen TAB] 325 mg PO Q4H PRN #30 tablet 06/30/17 08/08/20 Unknown Rx ALBUTEROL NEB's [Proventil 0.083% 2.5 mg IH Q3HRT PRN #30 day 08/10/20 Unknown Rx NEBS] Albuterol Mdi (or & Nicu Only) 2 puff IH QID PRN #1 inhalation 08/10/20 Unknown Rx [ProAir HFA Inhaler] Azithromycin [Zithromax Z-BIN] 0 mg PO DAILY #1 tab 08/10/20 Unknown Rx Benzonatate [Tessalon Perles] 100 mg PO Q8HR #15 capsule 08/10/20 Unknown Rx Famotidine [Pepcid] 20 mg PO BID #14 tablet 08/10/20 Unknown Rx Ipratropium/Albuterol Sulfate 1 ampul IH TIDRT #30 day 08/10/20 Unknown Rx [DUONEB *Not for PRN Use*] hydroCHLOROthiazide [HCTZ] 25 mg PO QDAY tablet 08/10/20 Unknown Rx hydroCHLOROthiazide [HCTZ] 25 mg PO QDAY #30 tablet 08/10/20 Unknown Rx methylPREDNISolone [Medrol 4MG 4 mg PO DAILY #1 tab.ds.pk 08/10/20 Unknown Rx DOSEPAK (21 tabs)] Active Medications: Generic Name Dose Route Start Last Admin Trade Name Freq PRN Reason Stop Dose Admin Acetaminophen 650 mg 04/08/21 03:00 04/17/21 06:42 Acetaminophen 325 Mg Tab PO 650 mg Q4H PRN Administration Pain MILD(1-3)/Fever >100.5/BROWN Albuterol 2.5 mg 04/08/21 03:00 Albuterol 2.5 Mg/3 Ml Nebu IH Q4HRT PRN Shortness Of Breath Albuterol/Ipratropium 1 ampul 04/08/21 08:00 04/22/21 08:06 Ipratropium/Albuterol Sulfate 3 Ml Ampul.Neb IH 1 ampul TIDRT EKATERINA Administration Aspirin 325 mg 04/09/21 10:00 04/22/21 09:15 Aspirin Ec 325 Mg Tab PO 325 mg QDAY EKATERINA Administration Atorvastatin Calcium 40 mg 04/08/21 22:00 04/21/21 22:24 Atorvastatin 40 Mg Tab PO 40 mg QHS EKATERINA Administration Benzonatate 100 mg 04/08/21 06:00 04/22/21 05:58 Benzonatate 100 Mg Cap PO 100 mg Q8HR EKATERINA Administration Guaifenesin 200 mg 04/12/21 14:47 04/17/21 06:43 Guaifenesin 100 Mg/5 Ml Oral Liqd PO 200 mg Q4H PRN Administration Cough Haloperidol Lactate 5 mg 04/18/21 16:27 04/21/21 03:30 Haloperidol Lactate 5 Mg/1 Ml Inj IV 5 mg Q6H PRN Administration Agitation Heparin Sodium (Porcine) 5,000 unit 04/18/21 14:00 04/22/21 05:58 Heparin 5,000 Unit/1 Ml Vial SUB-Q 5,000 unit Q8HR EKATERINA Administration Hydralazine HCl 10 mg 04/19/21 17:25 04/22/21 08:54 Hydralazine 20 Mg/1 Ml Inj IV 10 mg Q6H PRN Administration Blood Pressure Levothyroxine Sodium 100 mcg 04/22/21 06:00 04/22/21 05:58 Levothyroxine 100 Mcg Tab PO 100 mcg DAILY@0600 EKATERINA Administration Methylprednisolone Sodium Succinate 20 mg 04/16/21 10:00 04/22/21 09:16 Methylprednisolone Sod Succinate 40 Mg/1 Ml Inj IV 20 mg Q12HR EKATERINA Administration Nitroglycerin 0.4 mg 04/08/21 03:00 Nitroglycerin 0.4 Mg Tab Subl SL Q5M PRN Chest Pain Nystatin 1 applic 04/08/21 18:00 04/21/21 22:29 Nystatin Powder 15 Gm TP 1 applic BID EKATERINA Administration Ondansetron HCl 4 mg 04/08/21 03:00 04/15/21 23:51 Ondansetron 4 Mg/2 Ml Inj IV 4 mg Q8H PRN Administration Nausea And Vomiting Oxycodone/Acetaminophen 1 tab 04/08/21 03:00 04/21/21 16:26 Oxycodone /Acetaminophen 5-325mg Tab PO 1 tab Q6H PRN Administration Pain, Moderate (4-6) Pantoprazole Sodium 40 mg 04/16/21 10:00 04/22/21 09:15 Pantoprazole 40 Mg Inj IV 40 mg QDAY EKATERINA Administration Quetiapine Fumarate 75 mg 04/18/21 22:00 04/21/21 22:24 Quetiapine 25 Mg Tab PO 75 mg QHS EKATERINA Administration Sodium Chloride 10 ml 04/08/21 10:00 04/22/21 09:16 Sodium Chloride 0.9% 10 Ml Flush Syringe IV 10 ml BID EKATERINA Administration Sodium Chloride 10 ml 04/08/21 03:00 Sodium Chloride 0.9% 10 Ml Flush Syringe IV PRN PRN LINE FLUSH Tramadol HCl 50 mg 04/08/21 03:00 04/20/21 21:50 Tramadol 50 Mg Tab PO 50 mg Q6H PRN Administration Pain, Moderate (4-6)
[2021-04-22] MEDS: NYSTATIN POWDER 15 GM TP SCH ×2 (13:53→22:30)
--- NOTE | 2021-04-22 19:59 | Progress Note ---
Assessment and Plan Assessment and plan: -Acute on chronic hypoxic respiratory failure; requiring BiPAP Current Visit: Yes Status: Acute Continue oxygen titrate O2 sats more than 90% Patient sometimes requires continuous BiPAP Multifactorial obesity hypoventilation syndrome Obstructive sleep apnea, COPD, CHF Pulmonary and cardiology following Treat the underlying cause Patient already has home oxygen --Acute exacerbation COPD (chronic obstructive pulmonary disease) Current Visit: Yes Status: Acute Oxygen titrate O2 sats to more than 90%, patient is requiring BiPAP most of the times Wean as tolerated, nebulizers, IV steroids, IV antibiotics, inhalation steroids -- Morbid obesity; BMI 104.4 Current Visit: Yes Status: Acute Patient needs to participate on professional weight reduction program when medically stable. Strongly recommend outpatient follow-up with bariatric surgeon upon discharge when stable --Obesity hypoventilation syndrome; --Obstructive sleep apnea; -- Non-ST elevation [place] (NSTEMI) Current Visit: Yes Status: Acute Cardiology evaluation noted and appreciated, continue current cardiac medications Supportive care -- Acute exacerbation of CHF (congestive heart failure) Current Visit: Yes Status: Acute Fluid restriction. Maintain input output. Antifailure medications low-sodium diet Input output monitoring, cardiology following --hypothyroidism /new onset Current Visit: Yes Status: Acute Continue Synthroid, closely monitor Patient needs follow-up with engraver picture as outpatient upon DC -- Hypoglycemia/present on admission Current Visit: Yes Status: Acute Now resolved closely monitor blood sugars --acute kidney injury with vasomotor nephropathy Gentle hydration, monitor renal function, avoid nephrotoxins -- Lymphedema of the abdominal wall Due to morbid obesity, supportive care fluid restriction Low-sodium diet --Anemia of chronic disease; Closely monitor H&H, transfuse as needed --Acute transaminitis acute liver failure Acute transaminitis; LFTs trending down Hepatocellular pattern, multifactorial NAFLD, congestive hepatopathy, DILI, GI evaluation and recommendations noted, LFTs trending down -- hypertension Current Visit: Yes Status: Acute Plan to address problem: We will continue the home medication. Hydralazine 10 mg IV every 6 hours as needed. We will monitor the blood pressure closely -- DVT prophylaxis Current Visit: No Status: Acute Plan to address problem: Heparin 5000 units subcu every 8 hours for DVT prophylaxis. Pepcid 20 mg p.o. twice daily for GI prophylaxis. Patient is a full code Also monitor the patient and adjust management as needed DC planning per case management when medically stable and cleared by consultants 04/09 -Patient is on heparin drip for non-STEMI, cardiology is following. -Patient is off Lasix and SUNG inhibitors because of GILBERTO. -Kidney function is worsening overnight and I put a consult for nephrology. -Patient is hypotensive and blood pressure from this morning was 101/41. We will continue to monitor. And if it is dropping we we will give him fluid. -Echo was done and EF of 50 to 55%. Diastolic dysfunction is indeterminate. Management per cardiology -Patient has COPD continues on dexamethasone, nebulizer treatment as needed. -Patient has hyponatremia and hyperkalemia. I give the patient Kayexalate. Monitor electrolytes. Will follow nephrology for additional recommendation. 04/10 -Renal function is worsening, nephrology is following -Blood pressure is better today -Hyperkalemia; I added Kayexalate -Morbid obesity 04/11 -Slight improvement in creatinine. Hyponatremia worsened. Nephrology is following and put the patient back on Lasix. -Blood PRESSURE IS BETTER today -Potassium this morning was 5.8, I ordered 60 g of Kayexalate -Morbidly obese -Obesity hypoventilation syndrome 04/12 -Creatinine is improving and this morning was 2.4 -Hyponatremia improved this morning was 134. Patient is on Lasix -Blood pressure is better -Patient is on 10 L of oxygen; worsened -Morbidly obese, CLAUDIA 04/13: Follow ordered ultrasound of abdomen, per Physician unable to get CT. I ordered an ABG due to my concern about her breathing pattern this morning, patient may benefit from. Will try to establish if patient has a primary pulmonary doctor. ABG is showing consistent with Respiratory Acidosis. Will place on BIPAP now. May need to transfer to IM for closer monitoring. Patient likely with Obesity Hypoventilation syndrome. cardiology work up, ongoing. RENAL SHOWING SOME IMPROVEMENT Guarded prognosis 04/14: Patient seen and examined today identified some lesion under the pannus will obtain wound care and wound surgeon evaluation. Nephrology input noted continue diuresis and stop the sodium tabs creatinine is stable. I did discuss with the family and updated them. We will continue to hold SUNG and ARB and if pressures continue to drop may need to hold diuresis also despite as written above. Monitor labs including H&H. She is more awake review of ABG shows improving CO2. Will discuss with case management as patient may need BiPAP on discharge home. I also updated the family 04/15: Patient showing some clinical improvement. Liver enzymes is showing mild improvement although bilirubin increased slightly. GI input noted and as discussed by his notes below "Abnormal liver enzymes in hepatocellular pattern. broad ddx and likely multifactorial causes including NAFLD, congestive hepatopathy, possibly DILI. will check viral hep serologies. US with limited views, possible coarsening of the liver" Patient also evaluated by surgery noted with the lymphedema of abdominal wall and open wound of the abdominal wall without penetration into the abdominal cavity with recommendation to pack the wounds daily with mesalt. Need to maintain dry environment discussed with nursing staff. Elevate the pannus and optimize nutrition for which I will get nutritional consult. No surgical intervention at this time. Patient is bedbound when I asked when last she ambulated she said while "I guess he has not worked" but it has been a while. Unfortunately the LTAC center unwilling to accept the patient will discuss with pulmonary and with case management about obtaining BiPAP for this patient and possible SNF referral. 04/16: Patient this morning and was noted significantly lethargic and unresponsive respiratory and a code to be called. The patient resuscitated without any invasive procedure. ABG was obtained showed a CO2 of 142. Despite using BiPAP for some time through the night, sure how long she used it for. I have discontinued all IV opioids and recommend no IV opioids for this patient at this time. I also discontinued p.o. medications as an essential medication and change to IV. We will repeat an ABG in an hour to see if there is some improvement. Patient remains at high risk for possible intubation. Clinical condition is guarded 04/17: Patient remains on BiPAP this am, has some intermittent twitching, will check EEG, not likely seizure, but will monitor. Continue current management , check Albumin and Pre-Albumin level. Remains critically ill. Liver status showing improvement. 04/18: Patient with elevated D-dimer unfortunately size precludes being able to have a CTA chest done here to rule out pulmonary embolism. Doppler of lower extremities is pending. We will continue subcu anticoagulation with heparin at this time. Until Doppler is resolved. Patient is not hypoxic so doubt pulmonary embolism at this time. Her problem remains hypercapnia. I did take time to go over her history while she has been around hospital in the past and noticed a remarkable increase in her BMI from the last 2 years. Discussed with the bus system operator will agree to check thyroid function test. Critical care time 35- minute 04/19: Patient with hypothyroidism, while she does not appear to be with myxedema coma at this time. Will initiate levothyroxine as I believe that this will make profound impact her management at this time, continue BiPAP continue current management. Seroquel was added by pulmonary for delirium and agitation management, Ventimask during the day and BiPAP at night 04/20: Continue levothyroine, can change to PO in am. Will obtain Psych consult, she is clinically stable and will transfer to floor 04/21; levothyroxine changed to 100 mg p.o. daily Hazardous Waste Remover recommendations noted and appreciated Monitor LFTs 04/22; patient continues to be hypoxemic on continuous BiPAP Consultants and recommendations noted and appreciated Continue current management History Interval history: I seen and examined the patient at the bedside Patient's chart and medications reviewed No new changes remains on BiPAP In mild respiratory distress Morbidly obese Hospitalist Physical - Constitutional Vitals: Temp Pulse Resp BP Pulse Ox 98.3 F 110 H 18 125/78 91 04/22/21 15:33 04/22/21 15:19 04/22/21 15:33 04/22/21 15:33 04/22/21 15:19 General appearance: Present: mild distress, well-nourished, obese - EENT Eyes: Present: PERRL, EOM intact - Neck Neck: Present: supple, normal ROM - Respiratory Respiratory effort: normal Respiratory: bilateral: diminished, rhonchi, negative: rales, wheezing - Cardiovascular Rhythm: regular Heart Sounds: Present: S1 & S2 - Extremities Extremities: no ischemia, No edema - Abdominal General gastrointestinal: soft, non-tender, non-distended, normal bowel sounds - Integumentary Integumentary: Present: clear, warm - Psychiatric Psychiatric: appropriate mood/affect, cooperative - Neurologic Neurologic: moves all extremities HEART Score - HEART Score Troponin: Troponin T 0.078 ng/mL (0.00-0.029) H D 04/08/21 13:03 Results - Labs CBC & Chem 7: 04/19/21 04:40 04/20/21 04:22 Labs: Laboratory Last Values WBC 8.1 K/mm3 (4.5-11.0) 04/19/21 04:40 RBC 3.79 M/mm3 (3.65-5.03) 04/19/21 04:40 Hgb 8.1 gm/dl (10.1-14.3) L 04/19/21 04:40 Hct 27.5 % (30.3-42.9) L 04/19/21 04:40 MCV 73 fl (79-97) L 04/19/21 04:40 MCH 22 pg (28-32) L 04/19/21 04:40 MCHC 30 % (30-34) 04/19/21 04:40 RDW 25.4 % (13.2-15.2) H 04/19/21 04:40 Plt Count 224 K/mm3 (140-440) 04/19/21 04:40 Add Manual Diff Complete 04/12/21 14:11 Total Counted 100 04/12/21 14:11 Seg Neuts % (Manual) 86.0 % (40.0-70.0) H 04/12/21 14:11 Band Neutrophils % 1.0 % 04/12/21 14:11 Lymphocytes % (Manual) 6.0 % (13.4-35.0) L 04/12/21 14:11 Reactive Lymphs % (Man) 1.0 % 04/12/21 14:11 Monocytes % (Manual) 4.0 % (0.0-7.3) 04/12/21 14:11 Metamyelocytes % 2.0 % 04/12/21 14:11 Myelocytes % 2.0 % 04/08/21 04:03 Nucleated RBC % Not Reportable 04/12/21 14:11 Seg Neutrophils # Man 12.6 K/mm3 (1.8-7.7) H 04/12/21 14:11 Band Neutrophils # 0.1 K/mm3 04/12/21 14:11 Lymphocytes # (Manual) 0.9 K/mm3 (1.2-5.4) L 04/12/21 14:11 Abs React Lymphs (Man) 0.1 K/mm3 04/12/21 14:11 Monocytes # (Manual) 0.6 K/mm3 (0.0-0.8) 04/12/21 14:11 Eosinophils # (Manual) 0.0 K/mm3 (0.0-0.4) 04/12/21 14:11 Basophils # (Manual) 0.0 K/mm3 (0.0-0.1) 04/12/21 14:11 Metamyelocytes # 0.3 K/mm3 04/12/21 14:11 Myelocytes # 0.0 K/mm3 04/12/21 14:11 Promyelocytes # 0.0 K/mm3 04/12/21 14:11 Blast Cells # 0.0 K/mm3 04/12/21 14:11 WBC Morphology Not Reportable 04/12/21 14:11 WBC Morphology TNR 04/12/21 14:11 Hypersegmented Neuts Not Reportable 04/12/21 14:11 Hyposegmented Neuts Not Reportable 04/12/21 14:11 Hypogranular Neuts Not Reportable 04/12/21 14:11 Smudge Cells Not Reportable 04/12/21 14:11 Toxic Granulation Not Reportable 04/12/21 14:11 Toxic Vacuolation Not Reportable 04/12/21 14:11 Dohle Bodies Not Reportable 04/12/21 14:11 Pelger-Huet Anomaly Not Reportable 04/12/21 14:11 Ana Cristina Rods Not Reportable 04/12/21 14:11 Platelet Estimate Consistent w auto 04/12/21 14:11 Clumped Platelets Not Reportable 04/12/21 14:11 Plt Clumps, EDTA Not Reportable 04/12/21 14:11 Large Platelets Not Reportable 04/12/21 14:11 Giant Platelets Not Reportable 04/12/21 14:11 Platelet Satelliting Not Reportable 04/12/21 14:11 Plt Morphology Comment Not Reportable 04/12/21 14:11 RBC Morphology Not Reportable 04/12/21 14:11 Dimorphic RBCs Not Reportable 04/12/21 14:11 Polychromasia Few 04/12/21 14:11 Hypochromasia 1+ 04/12/21 14:11 Poikilocytosis Not Reportable 04/12/21 14:11 Anisocytosis Not Reportable 04/12/21 14:11 Microcytosis Not Reportable 04/12/21 14:11 Macrocytosis Not Reportable 04/12/21 14:11 Spherocytes Not Reportable 04/12/21 14:11 Pappenheimer Bodies Not Reportable 04/12/21 14:11 Sickle Cells Not Reportable 04/12/21 14:11 Target Cells 1+ 04/12/21 14:11 Tear Drop Cells Few 04/12/21 14:11 Ovalocytes Not Reportable 04/12/21 14:11 Helmet Cells Not Reportable 04/12/21 14:11 [place]-Fifty-Six Bodies Not Reportable 04/12/21 14:11 [place] Rings Not Reportable 04/12/21 14:11 [place] Cells Not Reportable 04/12/21 14:11 Bite Cells Not Reportable 04/12/21 14:11 Crenated Cell Not Reportable 04/12/21 14:11 Elliptocytes Not Reportable 04/12/21 14:11 Acanthocytes (Spur) Not Reportable 04/12/21 14:11 Rouleaux Not Reportable 04/12/21 14:11 Hemoglobin C Crystals Not Reportable 04/12/21 14:11 Schistocytes Not Reportable 04/12/21 14:11 Malaria parasites Not Reportable 04/12/21 14:11 Tyshawn Bodies Not Reportable 04/12/21 14:11 Hem Pathologist Commnt No 04/12/21 14:11 PT 18.7 Sec. (12.2-14.9) H 04/18/21 16:55 INR 1.51 (0.87-1.13) H 04/18/21 16:55 APTT 25.2 Sec. (24.2-36.6) 04/18/21 16:55 D-Dimer 5410.10 ng/mlDDU (0-234) H 04/17/21 16:03 ABG pH 7.382 (7.320-7.450) 04/18/21 14:19 POC ABG pCO2 67.4 mmHg (32.0-48.0) H 04/18/21 14:19 ABG pCO2 86.9 mm Hg 04/13/21 18:40 POC ABG pO2 150.6 mmHg (83-108) H 04/18/21 14:19 ABG pO2 81.8 mm Hg (80.0-90.0) 04/13/21 18:40 POC ABG HCO3 39.2 04/18/21 14:19 ABG HCO3 36.2 mmol/L (20.0-26.0) H 04/13/21 18:40 ABG O2 Saturation 99.4 (0-100) 04/18/21 14:19 ABG O2 Content 10.4 (0.0-44) 04/13/21 18:40 POC ABG Base Excess 12.2 04/18/21 14:19 ABG Base Excess 7.4 mmol/L (-2.0-3.0) H 04/13/21 18:40 ABG Hemoglobin 9.3 (12.0-17.5) L 04/18/21 14:19 ABG Oxyhemoglobin 97.5 (94-98) 04/18/21 14:19 ABG Carboxyhemoglobin 1.9 % (0.0-5.0) 04/13/21 18:40 ABG Methemoglobin 0.3 (0.0-1.5) 04/18/21 14:19 ABG Sodium 143.0 mmol/L (136.0-145.0) 04/18/21 14:19 ABG Potassium 4.2 mmol/L (3.40-4.50) 04/18/21 14:19 ABG Chloride 98.0 mmol/L (98-107) 04/18/21 14:19 ABG Glucose 162 mg/dL (65-95) H 04/18/21 14:19 Oxyhemoglobin 93.7 % (95.0-99.0) L 04/13/21 18:40 Carboxyhemoglobin 1.6 (0.5-1.5) H 04/18/21 14:19 FiO2 30 % 04/13/21 18:40 FiO2 % 35.0 04/18/21 14:19 Sodium 147 mmol/L (137-145) H 04/20/21 04:22 Potassium 4.8 mmol/L (3.6-5.0) 04/20/21 04:22 Chloride 100.6 mmol/L (98-107) 04/20/21 04:22 Carbon Dioxide 37 mmol/L (22-30) H 04/20/21 04:22 Anion Gap 14 mmol/L 04/20/21 04:22 BUN 74 mg/dL (7-17) H 04/20/21 04:22 Creatinine 1.3 mg/dL (0.6-1.2) H 04/20/21 04:22 Estimated GFR 57 ml/min 04/20/21 04:22 BUN/Creatinine Ratio 57 % 04/20/21 04:22 Glucose 193 mg/dL (65-100) H 04/20/21 04:22 POC Glucose 194 mg/dL (70-105) H 04/22/21 17:22 Osmolality 301 Mosm/kg 04/09/21 23:15 Calcium 9.2 mg/dL (8.4-10.2) 04/20/21 04:22 Ionized Calcium 3.6 mg/dL (4.8-5.6) L 04/09/21 23:15 Total Bilirubin 1.60 mg/dL (0.1-1.2) H 04/17/21 08:55 AST 172 units/L (5-40) H 04/17/21 08:55 ALT 437 units/L (7-56) H 04/17/21 08:55 Alkaline Phosphatase 92 units/L (35-129) 04/17/21 08:55 Total Creatine Kinase 1712 units/L (30-135) H 04/10/21 10:04 Troponin T 0.078 ng/mL (0.00-0.029) H D 04/08/21 13:03 NT-Pro-B Natriuret Pep 7573 pg/mL (0-450) H 04/07/21 22:04 Total Protein 10.1 g/dL (6.3-8.2) H 04/17/21 08:55 Albumin 3.2 g/dL (3.9-5) L 04/17/21 08:55 Albumin/Globulin Ratio 0.5 % 04/17/21 08:55 Triglycerides 105 mg/dL (2-149) 04/07/21 22:04 Cholesterol 85 mg/dL (50-199) 04/07/21 22:04 LDL Cholesterol Direct 47 mg/dL (50-130) L 04/07/21 22:04 HDL Cholesterol 25 mg/dL (40-59) L 04/07/21 22:04 Cholesterol/HDL Ratio 3.40 % 04/07/21 22:04 TSH 6.140 mlU/mL (0.270-4.200) H 04/18/21 19:55 Free T4 0.67 ng/dL (0.76-1.46) L 04/18/21 19:55 Total Cortisol 41.3 mcg/dL () 04/10/21 10:04 Arterial Blood Glucose 162 mg/dL (65-95) H 04/18/21 14:19 Arterial Blood Ionized Calcium 4.6 mg/dL (4.6-5.3) 04/16/21 07:32 Urine Osmolality 157 Mosm/kg 04/09/21 18:46 Urine Sodium 16 mmol/L 04/09/21 18:46 Coronavirus (PCR) Negative (Negative) 04/14/21 Unknown Hepatitis A IgM Ab Non-reactive (NonReactive) 04/14/21 18:45 Hep Bs Antigen Nonreactive (Negative) 04/14/21 18:45 Hepatitis C Antibody Non-reactive (NonReactive) 04/14/21 18:45 Zambrano/IV: Voiding Method Indwelling Catheter Active Medications - Current Medications Current Medications: Generic Name Dose Route Start Last Admin Trade Name Freq PRN Reason Stop Dose Admin Acetaminophen 650 mg 04/08/21 03:00 04/17/21 06:42 Acetaminophen 325 Mg Tab PO 650 mg Q4H PRN Administration Pain MILD(1-3)/Fever >100.5/BROWN Albuterol 2.5 mg 04/08/21 03:00 Albuterol 2.5 Mg/3 Ml Nebu IH Q4HRT PRN Shortness Of Breath Albuterol/Ipratropium 1 ampul 04/08/21 08:00 04/22/21 14:46 Ipratropium/Albuterol Sulfate 3 Ml Ampul.Neb IH 1 ampul TIDRT EKATERINA Administration Aspirin 325 mg 04/09/21 10:00 04/22/21 09:15 Aspirin Ec 325 Mg Tab PO 325 mg QDAY EKATERINA Administration Atorvastatin Calcium 40 mg 04/08/21 22:00 04/21/21 22:24 Atorvastatin 40 Mg Tab PO 40 mg QHS EKATERINA Administration Benzonatate 100 mg 04/08/21 06:00 04/22/21 13:52 Benzonatate 100 Mg Cap PO 100 mg Q8HR EKATERINA Administration Guaifenesin 200 mg 04/12/21 14:47 04/17/21 06:43 Guaifenesin 100 Mg/5 Ml Oral Liqd PO 200 mg Q4H PRN Administration Cough Haloperidol Lactate 5 mg 04/18/21 16:27 04/21/21 03:30 Haloperidol Lactate 5 Mg/1 Ml Inj IV 5 mg Q6H PRN Administration Agitation Heparin Sodium (Porcine) 5,000 unit 04/18/21 14:00 04/22/21 13:52 Heparin 5,000 Unit/1 Ml Vial SUB-Q 5,000 unit Q8HR EKATERINA Administration Hydralazine HCl 10 mg 04/19/21 17:25 04/22/21 08:54 Hydralazine 20 Mg/1 Ml Inj IV 10 mg Q6H PRN Administration Blood Pressure Levothyroxine Sodium 100 mcg 04/22/21 06:00 04/22/21 05:58 Levothyroxine 100 Mcg Tab PO 100 mcg DAILY@0600 EKATERINA Administration Methylprednisolone Sodium Succinate 20 mg 04/16/21 10:00 04/22/21 09:16 Methylprednisolone Sod Succinate 40 Mg/1 Ml Inj IV 20 mg Q12HR EKATERINA Administration Nitroglycerin 0.4 mg 04/08/21 03:00 Nitroglycerin 0.4 Mg Tab Subl SL Q5M PRN Chest Pain Nystatin 1 applic 04/08/21 18:00 04/22/21 13:53 Nystatin Powder 15 Gm TP 1 applic BID EKATERINA Administration Ondansetron HCl 4 mg 04/08/21 03:00 04/15/21 23:51 Ondansetron 4 Mg/2 Ml Inj IV 4 mg Q8H PRN Administration Nausea And Vomiting Oxycodone/Acetaminophen 1 tab 04/08/21 03:00 04/21/21 16:26 Oxycodone /Acetaminophen 5-325mg Tab PO 1 tab Q6H PRN Administration Pain, Moderate (4-6) Pantoprazole Sodium 40 mg 04/23/21 07:30 Pantoprazole 40 Mg Tab PO QDAC EKATERINA Quetiapine Fumarate 75 mg 04/18/21 22:00 04/21/21 22:24 Quetiapine 25 Mg Tab PO 75 mg QHS EKATERINA Administration Sodium Chloride 10 ml 04/08/21 10:00 04/22/21 09:16 Sodium Chloride 0.9% 10 Ml Flush Syringe IV 10 ml BID EKATERINA Administration Sodium Chloride 10 ml 04/08/21 03:00 Sodium Chloride 0.9% 10 Ml Flush Syringe IV PRN PRN LINE FLUSH Tramadol HCl 50 mg 04/08/21 03:00 04/20/21 21:50 Tramadol 50 Mg Tab PO 50 mg Q6H PRN Administration Pain, Moderate (4-6) Nutrition/Malnutrition Assess - Dietary Evaluation Nutrition/Malnutrition Findings: Nutrition Notes Start: 04/08/21 14:21 Freq: Status: Active Protocol: Document 04/20/21 15:55 MARIELY (Rec: 04/20/21 16:53 MARIELY [id number]) Nutrition Notes Need for Assessment generated from: [email or web address] Initial or Follow up Reassessment Current Diagnosis Heart Failure Other Pertinent Diagnosis Accute Kidney Injury Current Diet Renal Diet (from B 04/13). Labs/Tests 04/20: Na 147, CO2 37, BUN 74, Cr 1.3, Glu 193. Pertinent Medications Reviewed. Height 5 ft 4 in Weight 277.3 kg [place] Body Weight (kg) 54.54 BMI 104.9 Intake Prior to Admission Good Weight change and time frame expect weight fluctuations r/t fluid therapy, CHF complications Weight Status Morbidly Obese Subjective/Other Information Pt developed accute renal condition that requires support from Renal Diet. Percent of energy/protein needs met: Renal diet provides all energy /protein needs (2072 Kcal/77 g ) per day. Burn Absent Trauma Absent GI Symptoms None Food Allergy No Skin Integrity/Comment Integumentary: clear, warm, dry. Current % PO Good (75-100%) Minimum of two criteria No physical signs of malnutrition #1 Nutrition Diagnosis Altered nutrition-related laboratory values,Overweight/ obesity Comments: Pt developed accute renal condition that requires support from Renal Diet. Etiology Accute Kidney Injury resulted from complications from concomitant conditions As Evidenced by Signs and Symptoms Altered lab values and MD diagnosis Diagnosis Progress(for reassessment Worsened documentation) Is patient on ventilator? No Is Patient Ambulatory and/or Out of Bed Yes REE-([place]-St. Jeor-ambulatory/OOB) [ 4501.900 [id number]] Kcal/Kg value to use for calculation 10 Approximate Energy Requirements Using 2773 kcal/Kg Calculation Used for Recommendations Kcal/Kg of IBW Additional Notes Protein 1.0 g/Kg; 55 g/day; 220 Kcal/day (from IBW). Fluids: 1ml/kcal or per MD Nutrition Intervention Change Diet Order: Continue Renal Diet as MD prescribed. Teaching Recipient Patient Learning Readiness Good Teaching Methods Discussion Response to Teaching Verbalize understanding, Reinforcement needed Barriers to Learning Motivation,Emotional,Social Patient aware of follow up options Yes Actions To Overcome Barriers Collaboration with Other Providers Goal #1 Achieve and maintain acceptable chemistry lab values during LOS Goal #2 Support Improvement in renal functions while providing energy/protein needs during LOS Follow-Up By: 04/27/21 Additional Comments Continue monitoring % of food intake and tolerance, and BM. Reinforce education towards bariatric therapy after accute kidney injury is solved.
--- NOTE | 2021-04-22 21:53 | Progress Note ---
Assessment and Plan 35 years old female with history of morbid obesity, hypertension, asthma , sleep apnea was brought to the emergency room because of shortness of breath, edema, generalized malaise, fatigue, and weakness for last couple of days. She states she just does not feel well. She has a headache. She states her legs are swollen. She feels as though she is retaining fluid. She states that she went to her regular doctors on the . They tested her for Covid. It was negative. She was told to go see a manufacturing executive. She is not seen a car diologist as of yet. She came in here because she was not feeling well and did not know what to do. She has had no sick contacts. In the emergency room patient is found to have acute CHF exacerbation patient proBNP is 7573 also patient cardiac enzyme is elevated troponin is 0.043. Patient blood glucose also 55 patient is hypoglycemic Patients present blood sugur 130. Patient is awake. Resting on 3L O2. O2 saturation 98%. BIPAP 20/8, rate 30, FIO2 40% and stand-by in the room. Patient afebrile. No leukocytosis. Blood pressure 136/80, Pulse 102 ABG on FIO2 45% ABG pH 7.234 (7.320-7.450) L 04/17/21 09:47 POC ABG pCO2 90.5 mmHg (32.0-48.0) H 04/17/21 09:47 ABG pCO2 86.9 mm Hg 04/13/21 18:40 POC ABG pO2 139.4 mmHg (83-108) H 04/17/21 09:47 ABG pO2 81.8 mm Hg (80.0-90.0) 04/13/21 18:40 POC ABG HCO3 37.4 04/17/21 09:47 ABG O2 Saturation 99.2 (0-100) 04/17/21 09:47 Patients D dimer 04/17/21 : 5410.10 Patient presently on albuterol/atrovent aerosol treatments q 6 hours, Subcutaneous Heparin, Protonix, and I/V SoluMedrol. - Patient Problems (1) Acute respiratory failure with hypoxia and hypercapnia Current Visit: Yes Status: Acute Plan to address problem: On 3L O2 Saturation 98%. BIPAP 20/8, rate 30, FIO2 40%. Stand-by. Albuterol/atrovent aerosol treatments. Continue Solumedrol Contibue S/C Heparin. Continue Protonix (2) Acute exacerbation of CHF (congestive heart failure) Current Visit: Yes Status: Acute Plan to address problem: Management as per cardiology. (3) Hypertension Current Visit: Yes Status: Acute Plan to address problem: Management as per primary care. (4) Morbid obesity with BMI of 70 and over, adult Current Visit: No Status: Acute Plan to address problem: Weight reduction diet. Mobility protocol Fall precautions. (5) Obesity hypoventilation syndrome Current Visit: No Status: Acute Plan to address problem: BIPAP 20/8, rate 30, FIO2 40%. (6) Sleep apnea Current Visit: No Status: Acute Plan to address problem: BIPAP 20/8, rate 30, FIO2 40%. Sleep study if she can as out patient. Subjective Date of service: 04/22/21 Principal diagnosis: Ac hypoxemic and hypercapnic resp failure; AE-CHF; Morbid obesity; CLAUDIA/OHS Interval history: 35 years old female with history of morbid obesity, hypertension, asthma COPD sleep apnea was brought to the emergency room because of shortness of breath, edema, generalized malaise, fatigue, and weakness for last couple of days. She states she just does not feel well. She has a headache. She states her legs are swollen. She feels as though she is retaining fluid. She states that she went to her regular doctors on the . They tested her for Covid. It was negative. She was told to go see a manufacturing executive. She is not seen a manufacturing executive as of yet. She came in here because she was not feeling well and did not know what to do. She has had no sick contacts. In the emergency room patient is found to have acute CHF exacerbation patient proBNP is 7573 also patient cardiac enzyme is elevated troponin is 0.043. P atient blood glucose also 55 patient is hypoglycemic. Patient is awake. Resting on 3L O2. O2 saturation 98%. BIPAP 20/8, rate 30, FIO2 40% and stand-by in the room. Patient afebrile. No leukocytosis. Blood pressure 136/80, Pulse 102 ABG on FIO2 45% ABG pH 7.234 (7.320-7.450) L 04/17/21 09:47 POC ABG pCO2 90.5 mmHg (32.0-48.0) H 04/17/21 09:47 ABG pCO2 86.9 mm Hg 04/13/21 18:40 POC ABG pO2 139.4 mmHg (83-108) H 04/17/21 09:47 ABG pO2 81.8 mm Hg (80.0-90.0) 04/13/21 18:40 POC ABG HCO3 37.4 04/17/21 09:47 ABG O2 Saturation 99.2 (0-100) 04/17/21 09:47 Patients D dimer 04/17/21 : 5410.10 Patient presently on albuterol/atrovent aerosol treatments q 6 hours, subcutaneous Heparin, Protonix, and I/V SoluMedrol. Objective Vital Signs - 12hr 04/22/21 04/22/21 04/22/21 11:11 11:14 14:00 Temperature 98.5 F Pulse Rate [ Anterior Bilateral Throughout] Pulse Rate [ From Monitor] Respiratory 28 H 34 H Rate Respiratory Rate [Anterior Bilateral Throughout] Blood Pressure 149/85 O2 Sat by Pulse 94 97 Oximetry 04/22/21 04/22/21 04/22/21 14:46 15:19 15:33 Temperature 98.3 F Pulse Rate [ 110 H Anterior Bilateral Throughout] Pulse Rate [ 110 H From Monitor] Respiratory 18 Rate Respiratory 24 Rate [Anterior Bilateral Throughout] Blood Pressure 125/78 O2 Sat by Pulse 91 Oximetry 04/22/21 04/22/21 19:40 20:35 Temperature 99.2 F Pulse Rate [ Anterior Bilateral Throughout] Pulse Rate [ From Monitor] Respiratory 20 Rate Respiratory Rate [Anterior Bilateral Throughout] Blood Pressure 147/125 O2 Sat by Pulse 97 Oximetry Constitutional: no acute distress, alert, other (young extremely obese female with mildly increased respiratory effort at rest) Eyes: non-icteric ENT: oropharynx moist, other (BIPAP FFM) Neck: supple, no lymphadenopathy, no JVD Effort: mildly labored Ascultation: Bilateral: diminished breath sounds, rhonchi Percussion: Bilateral: not dull Cardiovascular: regular rate and rhythm Gastrointestinal: normoactive bowel sounds, soft, non-tender, non-distended (protuberant) Integumentary: rash (stasis dermatitis type), other (Stasis dermatititis on legs and abdomen; see [facility] notes for full details) Extremities: pulses normal, no ischemia or petechiae, edema (2+), other (stasis dermatitis) Neurologic: non-focal exam (grossly), pupils equal and round, CN II-XII normal Psychiatric: depressed CBC and BMP: 04/25/21 10:35 04/25/21 17:14 ABG, PT/INR, D-dimer: ABG ABG pH 7.382 (7.320-7.450) 04/18/21 14:19 POC ABG pCO2 67.4 mmHg (32.0-48.0) H 04/18/21 14:19 ABG pCO2 86.9 mm Hg 04/13/21 18:40 POC ABG pO2 150.6 mmHg (83-108) H 04/18/21 14:19 ABG pO2 81.8 mm Hg (80.0-90.0) 04/13/21 18:40 POC ABG HCO3 39.2 04/18/21 14:19 ABG O2 Saturation 99.4 (0-100) 04/18/21 14:19 PT/INR, D-dimer PT 18.7 Sec. (12.2-14.9) H 04/18/21 16:55 INR 1.51 (0.87-1.13) H 04/18/21 16:55 D-Dimer 5410.10 ng/mlDDU (0-234) H 04/17/21 16:03 Abnormal lab findings: Abnormal Labs 04/07/21 04/07/21 04/08/21 22:04 22:04 00:18 WBC 17.7 H Hgb 9.1 L Hct MCV 77 L MCH 21 L MCHC 27 L RDW 24.3 H Seg Neuts % (Manual) Lymphocytes % (Manual) Nucleated RBC % Seg Neutrophils # Man Lymphocytes # (Manual) Monocytes # (Manual) PT INR D-Dimer ABG pH POC ABG pCO2 POC ABG pO2 ABG pO2 ABG HCO3 ABG Base Excess ABG Hemoglobin ABG Oxyhemoglobin ABG Sodium ABG Chloride ABG Glucose Oxyhemoglobin Carboxyhemoglobin Sodium 135 L Potassium Chloride 91.0 L Carbon Dioxide 17 L BUN Creatinine 1.4 H Glucose 55 L POC Glucose 49 L Calcium Ionized Calcium Total Bilirubin AST ALT Total Creatine Kinase Troponin T 0.043 H NT-Pro-B Natriuret Pep 7573 H Total Protein Albumin LDL Cholesterol Direct 47 L HDL Cholesterol 25 L TSH Free T4 Arterial Blood Glucose 04/08/21 04/08/21 04/08/21 04:03 04:03 09:22 WBC 24.3 H Hgb 9.3 L Hct MCV 74 L MCH 21 L MCHC 29 L RDW 23.1 H Seg Neuts % (Manual) 78.0 H Lymphocytes % (Manual) 7.0 L Nucleated RBC % 1.0 H Seg Neutrophils # Man 19.0 H Lymphocytes # (Manual) Monocytes # (Manual) 1.0 H PT INR D-Dimer ABG pH POC ABG pCO2 POC ABG pO2 ABG pO2 ABG HCO3 ABG Base Excess ABG Hemoglobin ABG Oxyhemoglobin ABG Sodium ABG Chloride ABG Glucose Oxyhemoglobin Carboxyhemoglobin Sodium 134 L Potassium Chloride 91.2 L Carbon Dioxide BUN Creatinine 1.8 H Glucose POC Glucose Calcium Ionized Calcium Total Bilirubin AST ALT Total Creatine Kinase Troponin T 0.099 H NT-Pro-B Natriuret Pep Total Protein Albumin LDL Cholesterol Direct HDL Cholesterol TSH Free T4 Arterial Blood Glucose 04/08/21 04/08/21 04/09/21 13:03 20:28 04:52 WBC 20.9 H Hgb 8.5 L Hct 30.0 L MCV 73 L MCH 21 L MCHC 28 L RDW 23.9 H Seg Neuts % (Manual) 77.0 H Lymphocytes % (Manual) 1.0 L Nucleated RBC % 1.0 H Seg Neutrophils # Man 16.1 H Lymphocytes # (Manual) 0.2 L Monocytes # (Manual) PT INR D-Dimer ABG pH POC ABG pCO2 POC ABG pO2 ABG pO2 ABG HCO3 ABG Base Excess ABG Hemoglobin ABG Oxyhemoglobin ABG Sodium ABG Chloride ABG Glucose Oxyhemoglobin Carboxyhemoglobin Sodium Potassium Chloride Carbon Dioxide BUN Creatinine Glucose POC Glucose 115 H Calcium Ionized Calcium Total Bilirubin AST ALT Total Creatine Kinase Troponin T 0.078 H D NT-Pro-B Natriuret Pep Total Protein Albumin LDL Cholesterol Direct HDL Cholesterol TSH Free T4 Arterial Blood Glucose 04/09/21 04/09/21 04/09/21 04:52 08:46 11:50 WBC Hgb Hct MCV MCH MCHC RDW Seg Neuts % (Manual) Lymphocytes % (Manual) Nucleated RBC % Seg Neutrophils # Man Lymphocytes # (Manual) Monocytes # (Manual) PT INR D-Dimer ABG pH POC ABG pCO2 POC ABG pO2 ABG pO2 ABG HCO3 ABG Base Excess ABG Hemoglobin ABG Oxyhemoglobin ABG Sodium ABG Chloride ABG Glucose Oxyhemoglobin Carboxyhemoglobin Sodium 129 L Potassium 5.6 H Chloride 88.6 L Carbon Dioxide BUN 27 H Creatinine 2.4 H Glucose 121 H POC Glucose 139 H 156 H Calcium 7.7 L Ionized Calcium Total Bilirubin AST ALT Total Creatine Kinase Troponin T NT-Pro-B Natriuret Pep Total Protein Albumin LDL Cholesterol Direct HDL Cholesterol TSH Free T4 Arterial Blood Glucose 04/09/21 04/09/21 04/09/21 15:46 16:58 22:08 WBC Hgb Hct MCV MCH MCHC RDW Seg Neuts % (Manual) Lymphocytes % (Manual) Nucleated RBC % Seg Neutrophils # Man Lymphocytes # (Manual) Monocytes # (Manual) PT INR D-Dimer ABG pH POC ABG pCO2 POC ABG pO2 ABG pO2 ABG HCO3 ABG Base Excess ABG Hemoglobin ABG Oxyhemoglobin ABG Sodium ABG Chloride ABG Glucose Oxyhemoglobin Carboxyhemoglobin Sodium 128 L Potassium 5.5 H Chloride 88.1 L Carbon Dioxide BUN 33 H Creatinine 2.7 H Glucose 172 H POC Glucose 187 H 186 H Calcium 7.3 L Ionized Calcium Total Bilirubin AST ALT Total Creatine Kinase Troponin T NT-Pro-B Natriuret Pep Total Protein Albumin LDL Cholesterol Direct HDL Cholesterol TSH Free T4 Arterial Blood Glucose 04/09/21 04/10/21 04/10/21 23:15 02:20 07:39 WBC Hgb Hct MCV MCH MCHC RDW Seg Neuts % (Manual) Lymphocytes % (Manual) Nucleated RBC % Seg Neutrophils # Man Lymphocytes # (Manual) Monocytes # (Manual) PT INR D-Dimer ABG pH POC ABG pCO2 POC ABG pO2 ABG pO2 ABG HCO3 ABG Base Excess ABG Hemoglobin ABG Oxyhemoglobin ABG Sodium ABG Chloride ABG Glucose Oxyhemoglobin Carboxyhemoglobin Sodium 128 L Potassium 5.2 H Chloride 88.6 L Carbon Dioxide BUN 39 H Creatinine 3.1 H Glucose 171 H POC Glucose 168 H Calcium 7.2 L Ionized Calcium 3.6 L Total Bilirubin AST ALT Total Creatine Kinase Troponin T NT-Pro-B Natriuret Pep Total Protein Albumin LDL Cholesterol Direct HDL Cholesterol TSH Free T4 Arterial Blood Glucose 04/10/21 04/10/21 04/10/21 10:04 11:37 17:18 WBC Hgb Hct MCV MCH MCHC RDW Seg Neuts % (Manual) Lymphocytes % (Manual) Nucleated RBC % Seg Neutrophils # Man Lymphocytes # (Manual) Monocytes # (Manual) PT INR D-Dimer ABG pH POC ABG pCO2 POC ABG pO2 ABG pO2 ABG HCO3 ABG Base Excess ABG Hemoglobin ABG Oxyhemoglobin ABG Sodium ABG Chloride ABG Glucose Oxyhemoglobin Carboxyhemoglobin Sodium Potassium Chloride Carbon Dioxide BUN Creatinine Glucose POC Glucose 170 H 152 H Calcium Ionized Calcium Total Bilirubin AST ALT Total Creatine Kinase 1712 H Troponin T NT-Pro-B Natriuret Pep Total Protein Albumin LDL Cholesterol Direct HDL Cholesterol TSH Free T4 Arterial Blood Glucose 04/10/21 04/10/21 04/11/21 19:38 22:02 05:48 WBC Hgb Hct MCV MCH MCHC RDW Seg Neuts % (Manual) Lymphocytes % (Manual) Nucleated RBC % Seg Neutrophils # Man Lymphocytes # (Manual) Monocytes # (Manual) PT INR D-Dimer ABG pH POC ABG pCO2 POC ABG pO2 ABG pO2 ABG HCO3 ABG Base Excess ABG Hemoglobin ABG Oxyhemoglobin ABG Sodium ABG Chloride ABG Glucose Oxyhemoglobin Carboxyhemoglobin Sodium 128 L 124 L Potassium 5.8 H D Chloride 89.6 L 89.4 L Carbon Dioxide BUN 47 H 53 H Creatinine 3.0 H 2.8 H Glucose 165 H 150 H POC Glucose 147 H Calcium 6.9 L 7.2 L Ionized Calcium Total Bilirubin AST ALT Total Creatine Kinase Troponin T NT-Pro-B Natriuret Pep Total Protein Albumin LDL Cholesterol Direct HDL Cholesterol TSH Free T4 Arterial Blood Glucose 04/11/21 04/11/21 04/11/21 08:48 11:35 19:12 WBC Hgb Hct MCV MCH MCHC RDW Seg Neuts % (Manual) Lymphocytes % (Manual) Nucleated RBC % Seg Neutrophils # Man Lymphocytes # (Manual) Monocytes # (Manual) PT INR D-Dimer ABG pH POC ABG pCO2 POC ABG pO2 ABG pO2 ABG HCO3 ABG Base Excess ABG Hemoglobin ABG Oxyhemoglobin ABG Sodium ABG Chloride ABG Glucose Oxyhemoglobin Carboxyhemoglobin Sodium 128 L Potassium Chloride 89.7 L Carbon Dioxide BUN 53 H Creatinine 2.4 H Glucose 159 H POC Glucose 152 H 152 H Calcium 7.1 L Ionized Calcium Total Bilirubin AST ALT Total Creatine Kinase Troponin T NT-Pro-B Natriuret Pep Total Protein Albumin LDL Cholesterol Direct HDL Cholesterol TSH Free T4 Arterial Blood Glucose 04/11/21 04/12/21 04/12/21 22:03 05:03 07:41 WBC Hgb Hct MCV MCH MCHC RDW Seg Neuts % (Manual) Lymphocytes % (Manual) Nucleated RBC % Seg Neutrophils # Man Lymphocytes # (Manual) Monocytes # (Manual) PT INR D-Dimer ABG pH POC ABG pCO2 POC ABG pO2 ABG pO2 ABG HCO3 ABG Base Excess ABG Hemoglobin ABG Oxyhemoglobin ABG Sodium ABG Chloride ABG Glucose Oxyhemoglobin Carboxyhemoglobin Sodium 134 L Potassium Chloride 92.9 L Carbon Dioxide 33 H D BUN 54 H Creatinine 2.4 H Glucose 150 H POC Glucose 152 H 144 H Calcium 7.2 L Ionized Calcium Total Bilirubin AST ALT Total Creatine Kinase Troponin T NT-Pro-B Natriuret Pep Total Protein Albumin LDL Cholesterol Direct HDL Cholesterol TSH Free T4 Arterial Blood Glucose 04/12/21 04/12/21 04/12/21 11:38 14:11 17:02 WBC 14.7 H Hgb 8.7 L Hct 29.8 L MCV 74 L MCH 22 L MCHC 29 L RDW 24.9 H Seg Neuts % (Manual) 86.0 H Lymphocytes % (Manual) 6.0 L Nucleated RBC % Seg Neutrophils # Man 12.6 H Lymphocytes # (Manual) 0.9 L Monocytes # (Manual) PT INR D-Dimer ABG pH POC ABG pCO2 POC ABG pO2 ABG pO2 ABG HCO3 ABG Base Excess ABG Hemoglobin ABG Oxyhemoglobin ABG Sodium ABG Chloride ABG Glucose Oxyhemoglobin Carboxyhemoglobin Sodium Potassium Chloride Carbon Dioxide BUN Creatinine Glucose POC Glucose 151 H 154 H Calcium Ionized Calcium Total Bilirubin AST ALT Total Creatine Kinase Troponin T NT-Pro-B Natriuret Pep Total Protein Albumin LDL Cholesterol Direct HDL Cholesterol TSH Free T4 Arterial Blood Glucose 04/12/21 04/13/21 04/13/21 23:14 05:03 10:00 WBC Hgb Hct MCV MCH MCHC RDW Seg Neuts % (Manual) Lymphocytes % (Manual) Nucleated RBC % Seg Neutrophils # Man Lymphocytes # (Manual) Monocytes # (Manual) PT INR D-Dimer ABG pH 7.150 L* POC ABG pCO2 POC ABG pO2 ABG pO2 91.8 H ABG HCO3 37.2 H ABG Base Excess 7.1 H ABG Hemoglobin 7.1 L ABG Oxyhemoglobin ABG Sodium ABG Chloride ABG Glucose Oxyhemoglobin 93.4 L Carboxyhemoglobin Sodium 134 L Potassium Chloride 91.3 L Carbon Dioxide 33 H BUN 63 H Creatinine 2.2 H Glucose 159 H POC Glucose 151 H Calcium 7.8 L Ionized Calcium Total Bilirubin AST ALT Total Creatine Kinase Troponin T NT-Pro-B Natriuret Pep Total Protein Albumin LDL Cholesterol Direct HDL Cholesterol TSH Free T4 Arterial Blood Glucose 04/13/21 04/13/21 04/13/21 12:39 16:37 18:40 WBC Hgb Hct MCV MCH MCHC RDW Seg Neuts % (Manual) Lymphocytes % (Manual) Nucleated RBC % Seg Neutrophils # Man Lymphocytes # (Manual) Monocytes # (Manual) PT INR D-Dimer ABG pH 7.237 L POC ABG pCO2 POC ABG pO2 ABG pO2 ABG HCO3 36.2 H ABG Base Excess 7.4 H ABG Hemoglobin 7.8 L ABG Oxyhemoglobin ABG Sodium ABG Chloride ABG Glucose Oxyhemoglobin 93.7 L Carboxyhemoglobin Sodium Potassium Chloride Carbon Dioxide BUN Creatinine Glucose POC Glucose 140 H 132 H Calcium Ionized Calcium Total Bilirubin AST ALT Total Creatine Kinase Troponin T NT-Pro-B Natriuret Pep Total Protein Albumin LDL Cholesterol Direct HDL Cholesterol TSH Free T4 Arterial Blood Glucose 04/13/21 04/14/21 04/14/21 23:55 04:27 04:27 WBC Hgb 8.5 L Hct 29.1 L MCV 72 L MCH 21 L MCHC 29 L RDW 24.9 H Seg Neuts % (Manual) Lymphocytes % (Manual) Nucleated RBC % Seg Neutrophils # Man Lymphocytes # (Manual) Monocytes # (Manual) PT INR D-Dimer ABG pH POC ABG pCO2 POC ABG pO2 ABG pO2 ABG HCO3 ABG Base Excess ABG Hemoglobin ABG Oxyhemoglobin ABG Sodium ABG Chloride ABG Glucose Oxyhemoglobin Carboxyhemoglobin Sodium 135 L Potassium Chloride 93.5 L Carbon Dioxide 33 H BUN 68 H Creatinine 1.9 H Glucose 143 H POC Glucose 135 H Calcium 8.1 L Ionized Calcium Total Bilirubin 1.50 H AST 494 H ALT 835 H Total Creatine Kinase Troponin T NT-Pro-B Natriuret Pep Total Protein 9.5 H Albumin 3.1 L LDL Cholesterol Direct HDL Cholesterol TSH Free T4 Arterial Blood Glucose 04/14/21 04/14/21 04/15/21 12:03 17:24 00:19 WBC Hgb Hct MCV MCH MCHC RDW Seg Neuts % (Manual) Lymphocytes % (Manual) Nucleated RBC % Seg Neutrophils # Man Lymphocytes # (Manual) Monocytes # (Manual) PT INR D-Dimer ABG pH 7.291 L POC ABG pCO2 75.5 H POC ABG pO2 76.2 L ABG pO2 ABG HCO3 ABG Base Excess ABG Hemoglobin 9.9 L ABG Oxyhemoglobin 91.0 L ABG Sodium 134.9 L ABG Chloride 93.0 L ABG Glucose 146 H Oxyhemoglobin Carboxyhemoglobin 2.2 H Sodium Potassium Chloride Carbon Dioxide BUN Creatinine Glucose POC Glucose 134 H 136 H Calcium Ionized Calcium Total Bilirubin AST ALT Total Creatine Kinase Troponin T NT-Pro-B Natriuret Pep Total Protein Albumin LDL Cholesterol Direct HDL Cholesterol TSH Free T4 Arterial Blood Glucose 146 H 04/15/21 04/15/21 04/15/21 04:55 04:55 05:29 WBC Hgb 8.0 L Hct 27.1 L MCV 70 L MCH 21 L MCHC RDW 24.3 H Seg Neuts % (Manual) Lymphocytes % (Manual) Nucleated RBC % Seg Neutrophils # Man Lymphocytes # (Manual) Monocytes # (Manual) PT INR D-Dimer ABG pH POC ABG pCO2 POC ABG pO2 ABG pO2 ABG HCO3 ABG Base Excess ABG Hemoglobin ABG Oxyhemoglobin ABG Sodium ABG Chloride ABG Glucose Oxyhemoglobin Carboxyhemoglobin Sodium Potassium Chloride 95.1 L Carbon Dioxide 36 H BUN 63 H Creatinine 1.5 H Glucose 131 H POC Glucose 118 H Calcium 8.3 L Ionized Calcium Total Bilirubin 1.80 H AST 323 H ALT 609 H Total Creatine Kinase Troponin T NT-Pro-B Natriuret Pep Total Protein 9.3 H Albumin 2.9 L LDL Cholesterol Direct HDL Cholesterol TSH Free T4 Arterial Blood Glucose 04/15/21 04/15/21 04/15/21 11:40 18:30 22:44 WBC Hgb Hct MCV MCH MCHC RDW Seg Neuts % (Manual) Lymphocytes % (Manual) Nucleated RBC % Seg Neutrophils # Man Lymphocytes # (Manual) Monocytes # (Manual) PT INR D-Dimer ABG pH POC ABG pCO2 POC ABG pO2 ABG pO2 ABG HCO3 ABG Base Excess ABG Hemoglobin ABG Oxyhemoglobin ABG Sodium ABG Chloride ABG Glucose Oxyhemoglobin Carboxyhemoglobin Sodium Potassium Chloride Carbon Dioxide BUN Creatinine Glucose POC Glucose 139 H 130 H 123 H Calcium Ionized Calcium Total Bilirubin AST ALT Total Creatine Kinase Troponin T NT-Pro-B Natriuret Pep Total Protein Albumin LDL Cholesterol Direct HDL Cholesterol TSH Free T4 Arterial Blood Glucose 04/16/21 04/16/21 04/16/21 04:53 04:53 07:16 WBC 12.5 H Hgb 8.8 L Hct 30.2 L MCV 74 L MCH 21 L MCHC 29 L RDW 24.5 H Seg Neuts % (Manual) Lymphocytes % (Manual) Nucleated RBC % Seg Neutrophils # Man Lymphocytes # (Manual) Monocytes # (Manual) PT INR D-Dimer ABG pH POC ABG pCO2 POC ABG pO2 ABG pO2 ABG HCO3 ABG Base Excess ABG Hemoglobin ABG Oxyhemoglobin ABG Sodium ABG Chloride ABG Glucose Oxyhemoglobin Carboxyhemoglobin Sodium Potassium Chloride 96.9 L Carbon Dioxide 35 H BUN 65 H Creatinine 1.5 H Glucose 142 H POC Glucose 138 H Calcium Ionized Calcium Total Bilirubin 1.50 H AST 251 H ALT 572 H Total Creatine Kinase Troponin T NT-Pro-B Natriuret Pep Total Protein 10.1 H Albumin 3.2 L LDL Cholesterol Direct HDL Cholesterol TSH Free T4 Arterial Blood Glucose 04/16/21 04/16/21 04/16/21 07:32 11:29 14:42 WBC Hgb Hct MCV MCH MCHC RDW Seg Neuts % (Manual) Lymphocytes % (Manual) Nucleated RBC % Seg Neutrophils # Man Lymphocytes # (Manual) Monocytes # (Manual) PT INR D-Dimer ABG pH 7.086 L 7.188 L POC ABG pCO2 142.2 H 99.3 H POC ABG pO2 196.3 H 132.3 H ABG pO2 ABG HCO3 ABG Base Excess ABG Hemoglobin 10.0 L 9.2 L ABG Oxyhemoglobin ABG Sodium ABG Chloride 96.0 L 96.0 L ABG Glucose 147 H 146 H Oxyhemoglobin Carboxyhemoglobin 1.6 H 2.0 H Sodium Potassium Chloride Carbon Dioxide BUN Creatinine Glucose POC Glucose 131 H Calcium Ionized Calcium Total Bilirubin AST ALT Total Creatine Kinase Troponin T NT-Pro-B Natriuret Pep Total Protein Albumin LDL Cholesterol Direct HDL Cholesterol TSH Free T4 Arterial Blood Glucose 147 H 146 H 04/16/21 04/16/21 04/17/21 17:23 22:34 07:44 WBC Hgb Hct MCV MCH MCHC RDW Seg Neuts % (Manual) Lymphocytes % (Manual) Nucleated RBC % Seg Neutrophils # Man Lymphocytes # (Manual) Monocytes # (Manual) PT INR D-Dimer ABG pH POC ABG pCO2 POC ABG pO2 ABG pO2 ABG HCO3 ABG Base Excess ABG Hemoglobin ABG Oxyhemoglobin ABG Sodium ABG Chloride ABG Glucose Oxyhemoglobin Carboxyhemoglobin Sodium Potassium Chloride Carbon Dioxide BUN Creatinine Glucose POC Glucose 117 H 169 H 150 H Calcium Ionized Calcium Total Bilirubin AST ALT Total Creatine Kinase Troponin T NT-Pro-B Natriuret Pep Total Protein Albumin LDL Cholesterol Direct HDL Cholesterol TSH Free T4 Arterial Blood Glucose 04/17/21 04/17/21 04/17/21 08:55 08:55 09:47 WBC Hgb 8.7 L Hct 29.4 L MCV 74 L MCH 22 L MCHC RDW 24.8 H Seg Neuts % (Manual) Lymphocytes % (Manual) Nucleated RBC % Seg Neutrophils # Man Lymphocytes # (Manual) Monocytes # (Manual) PT INR D-Dimer ABG pH 7.234 L POC ABG pCO2 90.5 H POC ABG pO2 139.4 H ABG pO2 ABG HCO3 ABG Base Excess ABG Hemoglobin 9.5 L ABG Oxyhemoglobin ABG Sodium ABG Chloride 97.0 L ABG Glucose 179 H Oxyhemoglobin Carboxyhemoglobin 1.7 H Sodium Potassium Chloride 94.4 L Carbon Dioxide 37 H BUN 68 H Creatinine 1.5 H Glucose 178 H POC Glucose Calcium Ionized Calcium Total Bilirubin 1.60 H AST 172 H ALT 437 H Total Creatine Kinase Troponin T NT-Pro-B Natriuret Pep Total Protein 10.1 H Albumin 3.2 L LDL Cholesterol Direct HDL Cholesterol TSH Free T4 Arterial Blood Glucose 179 H 04/17/21 04/17/21 04/17/21 11:39 16:03 17:24 WBC Hgb Hct MCV MCH MCHC RDW Seg Neuts % (Manual) Lymphocytes % (Manual) Nucleated RBC % Seg Neutrophils # Man Lymphocytes # (Manual) Monocytes # (Manual) PT INR D-Dimer 5410.10 H ABG pH POC ABG pCO2 POC ABG pO2 ABG pO2 ABG HCO3 ABG Base Excess ABG Hemoglobin ABG Oxyhemoglobin ABG Sodium ABG Chloride ABG Glucose Oxyhemoglobin Carboxyhemoglobin Sodium Potassium Chloride Carbon Dioxide BUN Creatinine Glucose POC Glucose 161 H 130 H Calcium Ionized Calcium Total Bilirubin AST ALT Total Creatine Kinase Troponin T NT-Pro-B Natriuret Pep Total Protein Albumin LDL Cholesterol Direct HDL Cholesterol TSH Free T4 Arterial Blood Glucose 04/17/21 04/18/21 04/18/21 21:52 10:20 11:58 WBC Hgb Hct MCV MCH MCHC RDW Seg Neuts % (Manual) Lymphocytes % (Manual) Nucleated RBC % Seg Neutrophils # Man Lymphocytes # (Manual) Monocytes # (Manual) PT INR D-Dimer ABG pH POC ABG pCO2 POC ABG pO2 ABG pO2 ABG HCO3 ABG Base Excess ABG Hemoglobin ABG Oxyhemoglobin ABG Sodium ABG Chloride ABG Glucose Oxyhemoglobin Carboxyhemoglobin Sodium 146 H D Potassium Chloride Carbon Dioxide BUN 75 H Creatinine 1.6 H Glucose 158 H POC Glucose 150 H 143 H Calcium Ionized Calcium Total Bilirubin AST ALT Total Creatine Kinase Troponin T NT-Pro-B Natriuret Pep Total Protein Albumin LDL Cholesterol Direct HDL Cholesterol TSH Free T4 Arterial Blood Glucose 04/18/21 04/18/21 04/18/21 14:19 16:55 16:55 WBC Hgb 8.3 L Hct 27.7 L MCV MCH MCHC RDW Seg Neuts % (Manual) Lymphocytes % (Manual) Nucleated RBC % Seg Neutrophils # Man Lymphocytes # (Manual) Monocytes # (Manual) PT 18.7 H INR 1.51 H D-Dimer ABG pH POC ABG pCO2 67.4 H POC ABG pO2 150.6 H ABG pO2 ABG HCO3 ABG Base Excess ABG Hemoglobin 9.3 L ABG Oxyhemoglobin ABG Sodium ABG Chloride ABG Glucose 162 H Oxyhemoglobin Carboxyhemoglobin 1.6 H Sodium Potassium Chloride Carbon Dioxide BUN Creatinine Glucose POC Glucose Calcium Ionized Calcium Total Bilirubin AST ALT Total Creatine Kinase Troponin T NT-Pro-B Natriuret Pep Total Protein Albumin LDL Cholesterol Direct HDL Cholesterol TSH Free T4 Arterial Blood Glucose 162 H 04/18/21 04/18/21 04/18/21 17:40 19:55 19:55 WBC Hgb Hct MCV MCH MCHC RDW Seg Neuts % (Manual) Lymphocytes % (Manual) Nucleated RBC % Seg Neutrophils # Man Lymphocytes # (Manual) Monocytes # (Manual) PT INR D-Dimer ABG pH POC ABG pCO2 POC ABG pO2 ABG pO2 ABG HCO3 ABG Base Excess ABG Hemoglobin ABG Oxyhemoglobin ABG Sodium ABG Chloride ABG Glucose Oxyhemoglobin Carboxyhemoglobin Sodium Potassium Chloride Carbon Dioxide BUN Creatinine Glucose POC Glucose 151 H Calcium Ionized Calcium Total Bilirubin AST ALT Total Creatine Kinase Troponin T NT-Pro-B Natriuret Pep Total Protein Albumin LDL Cholesterol Direct HDL Cholesterol TSH 6.140 H Free T4 0.67 L Arterial Blood Glucose 04/18/21 04/19/21 04/19/21 22:19 04:40 04:40 WBC Hgb 8.1 L Hct 27.5 L MCV 73 L MCH 22 L MCHC RDW 25.4 H Seg Neuts % (Manual) Lymphocytes % (Manual) Nucleated RBC % Seg Neutrophils # Man Lymphocytes # (Manual) Monocytes # (Manual) PT INR D-Dimer ABG pH POC ABG pCO2 POC ABG pO2 ABG pO2 ABG HCO3 ABG Base Excess ABG Hemoglobin ABG Oxyhemoglobin ABG Sodium ABG Chloride ABG Glucose Oxyhemoglobin Carboxyhemoglobin Sodium Potassium Chloride Carbon Dioxide 37 H D BUN 76 H Creatinine 1.6 H Glucose 173 H POC Glucose 157 H Calcium Ionized Calcium Total Bilirubin AST ALT Total Creatine Kinase Troponin T NT-Pro-B Natriuret Pep Total Protein Albumin LDL Cholesterol Direct HDL Cholesterol TSH Free T4 Arterial Blood Glucose 04/19/21 04/19/21 04/19/21 11:36 17:20 21:17 WBC Hgb Hct MCV MCH MCHC RDW Seg Neuts % (Manual) Lymphocytes % (Manual) Nucleated RBC % Seg Neutrophils # Man Lymphocytes # (Manual) Monocytes # (Manual) PT INR D-Dimer ABG pH POC ABG pCO2 POC ABG pO2 ABG pO2 ABG HCO3 ABG Base Excess ABG Hemoglobin ABG Oxyhemoglobin ABG Sodium ABG Chloride ABG Glucose Oxyhemoglobin Carboxyhemoglobin Sodium Potassium Chloride Carbon Dioxide BUN Creatinine Glucose POC Glucose 168 H 174 H 163 H Calcium Ionized Calcium Total Bilirubin AST ALT Total Creatine Kinase Troponin T NT-Pro-B Natriuret Pep Total Protein Albumin LDL Cholesterol Direct HDL Cholesterol TSH Free T4 Arterial Blood Glucose 04/20/21 04/20/21 04/20/21 04:22 11:27 17:12 WBC Hgb Hct MCV MCH MCHC RDW Seg Neuts % (Manual) Lymphocytes % (Manual) Nucleated RBC % Seg Neutrophils # Man Lymphocytes # (Manual) Monocytes # (Manual) PT INR D-Dimer ABG pH POC ABG pCO2 POC ABG pO2 ABG pO2 ABG HCO3 ABG Base Excess ABG Hemoglobin ABG Oxyhemoglobin ABG Sodium ABG Chloride ABG Glucose Oxyhemoglobin Carboxyhemoglobin Sodium 147 H Potassium Chloride Carbon Dioxide 37 H BUN 74 H Creatinine 1.3 H Glucose 193 H POC Glucose 154 H 162 H Calcium Ionized Calcium Total Bilirubin AST ALT Total Creatine Kinase Troponin T NT-Pro-B Natriuret Pep Total Protein Albumin LDL Cholesterol Direct HDL Cholesterol TSH Free T4 Arterial Blood Glucose 04/20/21 04/21/21 04/21/21 21:59 09:05 12:28 WBC Hgb Hct MCV MCH MCHC RDW Seg Neuts % (Manual) Lymphocytes % (Manual) Nucleated RBC % Seg Neutrophils # Man Lymphocytes # (Manual) Monocytes # (Manual) PT INR D-Dimer ABG pH POC ABG pCO2 POC ABG pO2 ABG pO2 ABG HCO3 ABG Base Excess ABG Hemoglobin ABG Oxyhemoglobin ABG Sodium ABG Chloride ABG Glucose Oxyhemoglobin Carboxyhemoglobin Sodium Potassium Chloride Carbon Dioxide BUN Creatinine Glucose POC Glucose 160 H 168 H 174 H Calcium Ionized Calcium Total Bilirubin AST ALT Total Creatine Kinase Troponin T NT-Pro-B Natriuret Pep Total Protein Albumin LDL Cholesterol Direct HDL Cholesterol TSH Free T4 Arterial Blood Glucose 04/21/21 04/21/21 04/22/21 17:27 21:42 08:15 WBC Hgb Hct MCV MCH MCHC RDW Seg Neuts % (Manual) Lymphocytes % (Manual) Nucleated RBC % Seg Neutrophils # Man Lymphocytes # (Manual) Monocytes # (Manual) PT INR D-Dimer ABG pH POC ABG pCO2 POC ABG pO2 ABG pO2 ABG HCO3 ABG Base Excess ABG Hemoglobin ABG Oxyhemoglobin ABG Sodium ABG Chloride ABG Glucose Oxyhemoglobin Carboxyhemoglobin Sodium Potassium Chloride Carbon Dioxide BUN Creatinine Glucose POC Glucose 175 H 158 H 166 H Calcium Ionized Calcium Total Bilirubin AST ALT Total Creatine Kinase Troponin T NT-Pro-B Natriuret Pep Total Protein Albumin LDL Cholesterol Direct HDL Cholesterol TSH Free T4 Arterial Blood Glucose 04/22/21 04/22/21 04/22/21 11:28 17:22 21:14 WBC Hgb Hct MCV MCH MCHC RDW Seg Neuts % (Manual) Lymphocytes % (Manual) Nucleated RBC % Seg Neutrophils # Man Lymphocytes # (Manual) Monocytes # (Manual) PT INR D-Dimer ABG pH POC ABG pCO2 POC ABG pO2 ABG pO2 ABG HCO3 ABG Base Excess ABG Hemoglobin ABG Oxyhemoglobin ABG Sodium ABG Chloride ABG Glucose Oxyhemoglobin Carboxyhemoglobin Sodium Potassium Chloride Carbon Dioxide BUN Creatinine Glucose POC Glucose 198 H 194 H 176 H Calcium Ionized Calcium Total Bilirubin AST ALT Total Creatine Kinase Troponin T NT-Pro-B Natriuret Pep Total Protein Albumin LDL Cholesterol Direct HDL Cholesterol TSH Free T4 Arterial Blood Glucose Allied health notes reviewed: nursing
[2021-04-22] MEDS: QUEtiapine 25 MG TAB PO SCH (22:27)
[2021-04-23 01:31] LABS: Calcium 9.4 mg/dL (8.4-10.2)
[2021-04-23] MEDS: BENZONATATE 100 MG CAP PO SCH ×3 (03:08→23:01)
[2021-04-23] MEDS: HEPARIN 5,000 UNIT/1 ML VIAL SUB-Q SCH ×3 (03:08→23:07)
[2021-04-23 03:12] LABS: Mean Corpuscular HGB Conc 29 % (30-34); Mean Corpuscular Volume 72 fl (79-97); Red Blood Count 3.79 M/mm3 (3.65-5.03)
[2021-04-23 03:16] LABS: Albumin 3.2 g/dL (3.9-5); Bilirubin,Direct 0.8 mg/dL (0-0.2)
[2021-04-23 03:18] LABS: Hematocrit 27.2 % (30.3-42.9); Hemoglobin 7.9 gm/dl (10.1-14.3); Platelet Count 118 K/mm3 (140-440); Red Cell Distribution Width 25.8 % (13.2-15.2)
[2021-04-23] MEDS ORDERED: dilTIAZem 25 MG/5 ML INJ IV ONE (05:46)
[2021-04-23] MEDS: LEVOTHYROXINE 100 MCG TAB PO SCH (05:47)
[2021-04-23] MEDS: PANTOPRAZOLE 40 MG TAB PO SCH (08:00)
[2021-04-23] MEDS: IPRATROPIUM/ALBUTEROL SULFATE 3 ML AMPUL.NEB IH SCH ×3 (09:44→20:56)
[2021-04-23] MEDS: ASPIRIN EC 325 MG TAB PO SCH (11:00)
[2021-04-23] MEDS: NYSTATIN POWDER 15 GM TP SCH (11:00)
[2021-04-23] MEDS: methylPREDNISolone Sod Succinate 40 MG/1 ML INJ IV SCH ×2 (11:00→23:07)
--- NOTE | 2021-04-23 11:56 | Progress Note ---
Assessment and Plan Assessment Acute kidney injury, unknown baseline. Renal ultrasound notes poor visualization due to body habitus. Hypernatremia Hyperkalemia Hypocalcemia Morbid obesity Acute hypoxemic and hypercapnic respiratory failure Acute exacerbation of CHF (congestive heart failure) Hypertension Sleep apnea Recommendations Na higher previously at 147->153 Increase free water intake as able, if unable to drink, will start D5W Creatinine stable at 1.3 Excellent urine output noted Now with soft BP, holding meds echo noted, likely diastolic disease Avoid diuresis if able given hypernatremia, note good urine output Maintain MAP more than 65 Hold SUNG/ARB at this time Renally dose medications Avoid nephrotoxins Renal diet Daily renal labs Subjective Date of service: 04/23/21 Principal diagnosis: Ac hypoxemic and hypercapnic resp failure; AE-CHF; Morbid obesity; CLAUDIA/OHS Interval history: Patient was seen for her renal issues-remains off Bipap this AM, on NC Nursing, interdisciplinary and consult notes were reviewed Vitals, input and output, medications and labs were reviewed Objective - Exam Narrative Exam: General: Morbid obesity, on NC, mild discomfort HEENT: Oral mucosa moist Neck: Supple, no JVD Chest: labored breathing on NC Heart: RRR, S1 and S2 Abdomen: Soft, nontender Extremity: No peripheral cyanosis, edema Neurological: Awake and alert Dermatology: skin intact Psych: Calm and cooperative Musculoskeletal: No joint effusion - Vital Signs Vital signs: Vital Signs - 12hr 04/23/21 04/23/21 04/23/21 03:46 06:18 07:37 Temperature 100.5 F H 98.0 F Pulse Rate 123 H 124 H Respiratory 20 18 Rate Blood Pressure 89/52 109/56 115/66 O2 Sat by Pulse 88 Oximetry - Lab 04/23/21 02:51 04/23/21 00:54 Most recent lab results ABG pH 7.382 (7.320-7.450) 04/18/21 14:19 ABG pCO2 86.9 mm Hg 04/13/21 18:40 ABG pO2 81.8 mm Hg (80.0-90.0) 04/13/21 18:40 ABG HCO3 36.2 mmol/L (20.0-26.0) H 04/13/21 18:40 ABG O2 Saturation 99.4 (0-100) 04/18/21 14:19 Calcium 9.4 mg/dL (8.4-10.2) 04/23/21 00:54 Magnesium 2.10 mg/dL (1.7-2.3) 04/23/21 00:54 Urine Sodium 16 mmol/L 04/09/21 18:46 Medications & Allergies - Medications Allergies/Adverse Reactions: Allergies No Known Allergies Allergy (Unverified 01/27/17 11:17) Home Medications: Home Medications Medication Instructions Recorded Confirmed Last Taken Type Acetaminophen [Acetaminophen TAB] 325 mg PO Q4H PRN #30 tablet 06/30/17 08/08/20 Unknown Rx ALBUTEROL NEB's [Proventil 0.083% 2.5 mg IH Q3HRT PRN #30 day 08/10/20 Unknown Rx NEBS] Albuterol Mdi (or & Nicu Only) 2 puff IH QID PRN #1 inhalation 08/10/20 Unknown Rx [ProAir HFA Inhaler] Azithromycin [Zithromax Z-BIN] 0 mg PO DAILY #1 tab 08/10/20 Unknown Rx Benzonatate [Tessalon Perles] 100 mg PO Q8HR #15 capsule 08/10/20 Unknown Rx Famotidine [Pepcid] 20 mg PO BID #14 tablet 08/10/20 Unknown Rx Ipratropium/Albuterol Sulfate 1 ampul IH TIDRT #30 day 08/10/20 Unknown Rx [DUONEB *Not for PRN Use*] hydroCHLOROthiazide [HCTZ] 25 mg PO QDAY tablet 08/10/20 Unknown Rx hydroCHLOROthiazide [HCTZ] 25 mg PO QDAY #30 tablet 08/10/20 Unknown Rx methylPREDNISolone [Medrol 4MG 4 mg PO DAILY #1 tab.ds.pk 08/10/20 Unknown Rx DOSEPAK (21 tabs)] Active Medications: Generic Name Dose Route Start Last Admin Trade Name Freq PRN Reason Stop Dose Admin Acetaminophen 650 mg 04/08/21 03:00 04/17/21 06:42 Acetaminophen 325 Mg Tab PO 650 mg Q4H PRN Administration Pain MILD(1-3)/Fever >100.5/BROWN Albuterol 2.5 mg 04/08/21 03:00 Albuterol 2.5 Mg/3 Ml Nebu IH Q4HRT PRN Shortness Of Breath Albuterol/Ipratropium 1 ampul 04/08/21 08:00 04/23/21 09:44 Ipratropium/Albuterol Sulfate 3 Ml Ampul.Neb IH 1 ampul TIDRT EKATERINA Administration Aspirin 325 mg 04/09/21 10:00 04/22/21 09:15 Aspirin Ec 325 Mg Tab PO 325 mg QDAY EKATERINA Administration Atorvastatin Calcium 40 mg 04/08/21 22:00 04/22/21 22:27 Atorvastatin 40 Mg Tab PO 40 mg QHS EKATERINA Administration Benzonatate 100 mg 04/08/21 06:00 04/23/21 05:47 Benzonatate 100 Mg Cap PO 100 mg Q8HR EKATERINA Administration Guaifenesin 200 mg 04/12/21 14:47 04/17/21 06:43 Guaifenesin 100 Mg/5 Ml Oral Liqd PO 200 mg Q4H PRN Administration Cough Haloperidol Lactate 5 mg 04/18/21 16:27 04/21/21 03:30 Haloperidol Lactate 5 Mg/1 Ml Inj IV 5 mg Q6H PRN Administration Agitation Heparin Sodium (Porcine) 5,000 unit 04/18/21 14:00 04/23/21 05:47 Heparin 5,000 Unit/1 Ml Vial SUB-Q 5,000 unit Q8HR EKATERINA Administration Hydralazine HCl 10 mg 04/19/21 17:25 04/22/21 08:54 Hydralazine 20 Mg/1 Ml Inj IV 10 mg Q6H PRN Administration Blood Pressure Levothyroxine Sodium 100 mcg 04/22/21 06:00 04/23/21 05:47 Levothyroxine 100 Mcg Tab PO 100 mcg DAILY@0600 EKATERINA Administration Methylprednisolone Sodium Succinate 20 mg 04/16/21 10:00 04/22/21 22:26 Methylprednisolone Sod Succinate 40 Mg/1 Ml Inj IV 20 mg Q12HR EKATERINA Administration Nitroglycerin 0.4 mg 04/08/21 03:00 Nitroglycerin 0.4 Mg Tab Subl SL Q5M PRN Chest Pain Nystatin 1 applic 04/08/21 18:00 04/22/21 22:30 Nystatin Powder 15 Gm TP 1 applic BID EKATERINA Administration Ondansetron HCl 4 mg 04/08/21 03:00 04/15/21 23:51 Ondansetron 4 Mg/2 Ml Inj IV 4 mg Q8H PRN Administration Nausea And Vomiting Oxycodone/Acetaminophen 1 tab 04/08/21 03:00 04/21/21 16:26 Oxycodone /Acetaminophen 5-325mg Tab PO 1 tab Q6H PRN Administration Pain, Moderate (4-6) Pantoprazole Sodium 40 mg 04/23/21 07:30 04/23/21 08:00 Pantoprazole 40 Mg Tab PO 40 mg QDAC EKATERINA Administration Quetiapine Fumarate 75 mg 04/18/21 22:00 04/22/21 22:27 Quetiapine 25 Mg Tab PO 75 mg QHS EKATERINA Administration Sodium Chloride 10 ml 04/08/21 10:00 04/22/21 22:27 Sodium Chloride 0.9% 10 Ml Flush Syringe IV 10 ml BID EKATERINA Administration Sodium Chloride 10 ml 04/08/21 03:00 Sodium Chloride 0.9% 10 Ml Flush Syringe IV PRN PRN LINE FLUSH Tramadol HCl 50 mg 04/08/21 03:00 04/20/21 21:50 Tramadol 50 Mg Tab PO 50 mg Q6H PRN Administration Pain, Moderate (4-6)
--- NOTE | 2021-04-23 12:58 | Progress Note ---
Assessment and Plan Acute hypoxemic and hypercapnic respiratory failure Acute exacerbation of CHF (congestive heart failure) Hypertension Morbid obesity with BMI of 70 and over, adult Obesity hypoventilation syndrome Sleep apnea - continue NIV qhs with prn daytime use - continue avoid opiates / sedating drugs - continue care as below otherwise; - continue diuresis while following electrolytes - continue to wean supplemental oxygen for target O2 sat's > 90% acutely - aspiration precautions - continue bronchodilators with pulmonary hygiene per RT - continue accuchecks with glycemic control per SSI (While critically ill target blood glucose of 140-180 mg/dL; avoid hypoglycemia) - avoid nephrotoxins, renally dose all medications - AB's per ID rec's - prn analgesia per pain score - Maintenance of sleep-wake cycle, avoid delirium - G.I. & VTE prophylaxis - PT/OT/ROM exercises - continue mobility protocols for pressure ulcer prophylaxis - Monitor hemodynamics closely - continue other care per attending / other consultants - discharge planning ongoing concurrently COVID SPECIFIC INTERVENTIONS - COVID-19 assay negative .... Re-evaluate in am & prn Subjective Date of service: 04/23/21 Principal diagnosis: Ac hypoxemic and hypercapnic resp failure; AE-CHF; Morbid obesity; CLAUDIA/OHS Interval history: Patient is seen today for: Acute hypoxemic and hypercapnic respiratory failure; Acute exacerbation of CHF; Hypertension; Morbid obesity; CLAUDIA / OHS Seen and examined at bedside; 24hour events reviewed; nursing and respiratory care staff consulted; no adverse overnight events reported to me; resting in bed; alert; denies chest pain; says SOB is improved; no N/V/F/C; FiO2 down to 32% Objective Vital Signs - 12hr 04/23/21 04/23/21 04/23/21 03:46 06:18 07:37 Temperature 100.5 F H 98.0 F Pulse Rate 123 H 124 H Respiratory 20 18 Rate Blood Pressure 89/52 109/56 115/66 O2 Sat by Pulse 88 Oximetry Constitutional: no acute distress, asleep, other (young extremely obese female with mildly increased respiratory effort at rest) Eyes: non-icteric ENT: oropharynx moist, other (BIPAP FFM) Neck: supple, no lymphadenopathy, no JVD Effort: mildly labored Ascultation: Bilateral: diminished breath sounds, rhonchi (scant) Percussion: Bilateral: not dull Cardiovascular: regular rate and rhythm Gastrointestinal: normoactive bowel sounds, soft, non-tender, non-distended (protuberant) Integumentary: rash (stasis dermatitis type), other (Stasis dermatititis on legs and abdomen; see [facility] notes for full details) Extremities: pulses normal, no ischemia or petechiae, edema, other (stasis dermatitis) Neurologic: non-focal exam (grossly), pupils equal and round, CN II-XII normal Psychiatric: depressed CBC and BMP: 04/23/21 02:51 04/23/21 00:54 ABG, PT/INR, D-dimer: ABG ABG pH 7.382 (7.320-7.450) 04/18/21 14:19 POC ABG pCO2 67.4 mmHg (32.0-48.0) H 04/18/21 14:19 ABG pCO2 86.9 mm Hg 04/13/21 18:40 POC ABG pO2 150.6 mmHg (83-108) H 04/18/21 14:19 ABG pO2 81.8 mm Hg (80.0-90.0) 04/13/21 18:40 POC ABG HCO3 39.2 04/18/21 14:19 ABG O2 Saturation 99.4 (0-100) 04/18/21 14:19 PT/INR, D-dimer PT 18.7 Sec. (12.2-14.9) H 04/18/21 16:55 INR 1.51 (0.87-1.13) H 04/18/21 16:55 D-Dimer 5410.10 ng/mlDDU (0-234) H 04/17/21 16:03 Abnormal lab findings: Abnormal Labs 04/07/21 04/07/21 04/08/21 22:04 22:04 00:18 WBC 17.7 H Hgb 9.1 L Hct MCV 77 L MCH 21 L MCHC 27 L RDW 24.3 H Plt Count Seg Neuts % (Manual) Lymphocytes % (Manual) Nucleated RBC % Seg Neutrophils # Man Lymphocytes # (Manual) Monocytes # (Manual) PT INR D-Dimer ABG pH POC ABG pCO2 POC ABG pO2 ABG pO2 ABG HCO3 ABG Base Excess ABG Hemoglobin ABG Oxyhemoglobin ABG Sodium ABG Chloride ABG Glucose Oxyhemoglobin Carboxyhemoglobin Sodium 135 L Potassium Chloride 91.0 L Carbon Dioxide 17 L BUN Creatinine 1.4 H Glucose 55 L POC Glucose 49 L Calcium Ionized Calcium Total Bilirubin Direct Bilirubin AST ALT Total Creatine Kinase Troponin T 0.043 H NT-Pro-B Natriuret Pep 7573 H Total Protein Albumin LDL Cholesterol Direct 47 L HDL Cholesterol 25 L TSH Free T4 Arterial Blood Glucose 04/08/21 04/08/21 04/08/21 04:03 04:03 09:22 WBC 24.3 H Hgb 9.3 L Hct MCV 74 L MCH 21 L MCHC 29 L RDW 23.1 H Plt Count Seg Neuts % (Manual) 78.0 H Lymphocytes % (Manual) 7.0 L Nucleated RBC % 1.0 H Seg Neutrophils # Man 19.0 H Lymphocytes # (Manual) Monocytes # (Manual) 1.0 H PT INR D-Dimer ABG pH POC ABG pCO2 POC ABG pO2 ABG pO2 ABG HCO3 ABG Base Excess ABG Hemoglobin ABG Oxyhemoglobin ABG Sodium ABG Chloride ABG Glucose Oxyhemoglobin Carboxyhemoglobin Sodium 134 L Potassium Chloride 91.2 L Carbon Dioxide BUN Creatinine 1.8 H Glucose POC Glucose Calcium Ionized Calcium Total Bilirubin Direct Bilirubin AST ALT Total Creatine Kinase Troponin T 0.099 H NT-Pro-B Natriuret Pep Total Protein Albumin LDL Cholesterol Direct HDL Cholesterol TSH Free T4 Arterial Blood Glucose 04/08/21 04/08/21 04/09/21 13:03 20:28 04:52 WBC 20.9 H Hgb 8.5 L Hct 30.0 L MCV 73 L MCH 21 L MCHC 28 L RDW 23.9 H Plt Count Seg Neuts % (Manual) 77.0 H Lymphocytes % (Manual) 1.0 L Nucleated RBC % 1.0 H Seg Neutrophils # Man 16.1 H Lymphocytes # (Manual) 0.2 L Monocytes # (Manual) PT INR D-Dimer ABG pH POC ABG pCO2 POC ABG pO2 ABG pO2 ABG HCO3 ABG Base Excess ABG Hemoglobin ABG Oxyhemoglobin ABG Sodium ABG Chloride ABG Glucose Oxyhemoglobin Carboxyhemoglobin Sodium Potassium Chloride Carbon Dioxide BUN Creatinine Glucose POC Glucose 115 H Calcium Ionized Calcium Total Bilirubin Direct Bilirubin AST ALT Total Creatine Kinase Troponin T 0.078 H D NT-Pro-B Natriuret Pep Total Protein Albumin LDL Cholesterol Direct HDL Cholesterol TSH Free T4 Arterial Blood Glucose 04/09/21 04/09/21 04/09/21 04:52 08:46 11:50 WBC Hgb Hct MCV MCH MCHC RDW Plt Count Seg Neuts % (Manual) Lymphocytes % (Manual) Nucleated RBC % Seg Neutrophils # Man Lymphocytes # (Manual) Monocytes # (Manual) PT INR D-Dimer ABG pH POC ABG pCO2 POC ABG pO2 ABG pO2 ABG HCO3 ABG Base Excess ABG Hemoglobin ABG Oxyhemoglobin ABG Sodium ABG Chloride ABG Glucose Oxyhemoglobin Carboxyhemoglobin Sodium 129 L Potassium 5.6 H Chloride 88.6 L Carbon Dioxide BUN 27 H Creatinine 2.4 H Glucose 121 H POC Glucose 139 H 156 H Calcium 7.7 L Ionized Calcium Total Bilirubin Direct Bilirubin AST ALT Total Creatine Kinase Troponin T NT-Pro-B Natriuret Pep Total Protein Albumin LDL Cholesterol Direct HDL Cholesterol TSH Free T4 Arterial Blood Glucose 04/09/21 04/09/21 04/09/21 15:46 16:58 22:08 WBC Hgb Hct MCV MCH MCHC RDW Plt Count Seg Neuts % (Manual) Lymphocytes % (Manual) Nucleated RBC % Seg Neutrophils # Man Lymphocytes # (Manual) Monocytes # (Manual) PT INR D-Dimer ABG pH POC ABG pCO2 POC ABG pO2 ABG pO2 ABG HCO3 ABG Base Excess ABG Hemoglobin ABG Oxyhemoglobin ABG Sodium ABG Chloride ABG Glucose Oxyhemoglobin Carboxyhemoglobin Sodium 128 L Potassium 5.5 H Chloride 88.1 L Carbon Dioxide BUN 33 H Creatinine 2.7 H Glucose 172 H POC Glucose 187 H 186 H Calcium 7.3 L Ionized Calcium Total Bilirubin Direct Bilirubin AST ALT Total Creatine Kinase Troponin T NT-Pro-B Natriuret Pep Total Protein Albumin LDL Cholesterol Direct HDL Cholesterol TSH Free T4 Arterial Blood Glucose 04/09/21 04/10/21 04/10/21 23:15 02:20 07:39 WBC Hgb Hct MCV MCH MCHC RDW Plt Count Seg Neuts % (Manual) Lymphocytes % (Manual) Nucleated RBC % Seg Neutrophils # Man Lymphocytes # (Manual) Monocytes # (Manual) PT INR D-Dimer ABG pH POC ABG pCO2 POC ABG pO2 ABG pO2 ABG HCO3 ABG Base Excess ABG Hemoglobin ABG Oxyhemoglobin ABG Sodium ABG Chloride ABG Glucose Oxyhemoglobin Carboxyhemoglobin Sodium 128 L Potassium 5.2 H Chloride 88.6 L Carbon Dioxide BUN 39 H Creatinine 3.1 H Glucose 171 H POC Glucose 168 H Calcium 7.2 L Ionized Calcium 3.6 L Total Bilirubin Direct Bilirubin AST ALT Total Creatine Kinase Troponin T NT-Pro-B Natriuret Pep Total Protein Albumin LDL Cholesterol Direct HDL Cholesterol TSH Free T4 Arterial Blood Glucose 04/10/21 04/10/21 04/10/21 10:04 11:37 17:18 WBC Hgb Hct MCV MCH MCHC RDW Plt Count Seg Neuts % (Manual) Lymphocytes % (Manual) Nucleated RBC % Seg Neutrophils # Man Lymphocytes # (Manual) Monocytes # (Manual) PT INR D-Dimer ABG pH POC ABG pCO2 POC ABG pO2 ABG pO2 ABG HCO3 ABG Base Excess ABG Hemoglobin ABG Oxyhemoglobin ABG Sodium ABG Chloride ABG Glucose Oxyhemoglobin Carboxyhemoglobin Sodium Potassium Chloride Carbon Dioxide BUN Creatinine Glucose POC Glucose 170 H 152 H Calcium Ionized Calcium Total Bilirubin Direct Bilirubin AST ALT Total Creatine Kinase 1712 H Troponin T NT-Pro-B Natriuret Pep Total Protein Albumin LDL Cholesterol Direct HDL Cholesterol TSH Free T4 Arterial Blood Glucose 04/10/21 04/10/21 04/11/21 19:38 22:02 05:48 WBC Hgb Hct MCV MCH MCHC RDW Plt Count Seg Neuts % (Manual) Lymphocytes % (Manual) Nucleated RBC % Seg Neutrophils # Man Lymphocytes # (Manual) Monocytes # (Manual) PT INR D-Dimer ABG pH POC ABG pCO2 POC ABG pO2 ABG pO2 ABG HCO3 ABG Base Excess ABG Hemoglobin ABG Oxyhemoglobin ABG Sodium ABG Chloride ABG Glucose Oxyhemoglobin Carboxyhemoglobin Sodium 128 L 124 L Potassium 5.8 H D Chloride 89.6 L 89.4 L Carbon Dioxide BUN 47 H 53 H Creatinine 3.0 H 2.8 H Glucose 165 H 150 H POC Glucose 147 H Calcium 6.9 L 7.2 L Ionized Calcium Total Bilirubin Direct Bilirubin AST ALT Total Creatine Kinase Troponin T NT-Pro-B Natriuret Pep Total Protein Albumin LDL Cholesterol Direct HDL Cholesterol TSH Free T4 Arterial Blood Glucose 04/11/21 04/11/21 04/11/21 08:48 11:35 19:12 WBC Hgb Hct MCV MCH MCHC RDW Plt Count Seg Neuts % (Manual) Lymphocytes % (Manual) Nucleated RBC % Seg Neutrophils # Man Lymphocytes # (Manual) Monocytes # (Manual) PT INR D-Dimer ABG pH POC ABG pCO2 POC ABG pO2 ABG pO2 ABG HCO3 ABG Base Excess ABG Hemoglobin ABG Oxyhemoglobin ABG Sodium ABG Chloride ABG Glucose Oxyhemoglobin Carboxyhemoglobin Sodium 128 L Potassium Chloride 89.7 L Carbon Dioxide BUN 53 H Creatinine 2.4 H Glucose 159 H POC Glucose 152 H 152 H Calcium 7.1 L Ionized Calcium Total Bilirubin Direct Bilirubin AST ALT Total Creatine Kinase Troponin T NT-Pro-B Natriuret Pep Total Protein Albumin LDL Cholesterol Direct HDL Cholesterol TSH Free T4 Arterial Blood Glucose 04/11/21 04/12/21 04/12/21 22:03 05:03 07:41 WBC Hgb Hct MCV MCH MCHC RDW Plt Count Seg Neuts % (Manual) Lymphocytes % (Manual) Nucleated RBC % Seg Neutrophils # Man Lymphocytes # (Manual) Monocytes # (Manual) PT INR D-Dimer ABG pH POC ABG pCO2 POC ABG pO2 ABG pO2 ABG HCO3 ABG Base Excess ABG Hemoglobin ABG Oxyhemoglobin ABG Sodium ABG Chloride ABG Glucose Oxyhemoglobin Carboxyhemoglobin Sodium 134 L Potassium Chloride 92.9 L Carbon Dioxide 33 H D BUN 54 H Creatinine 2.4 H Glucose 150 H POC Glucose 152 H 144 H Calcium 7.2 L Ionized Calcium Total Bilirubin Direct Bilirubin AST ALT Total Creatine Kinase Troponin T NT-Pro-B Natriuret Pep Total Protein Albumin LDL Cholesterol Direct HDL Cholesterol TSH Free T4 Arterial Blood Glucose 04/12/21 04/12/21 04/12/21 11:38 14:11 17:02 WBC 14.7 H Hgb 8.7 L Hct 29.8 L MCV 74 L MCH 22 L MCHC 29 L RDW 24.9 H Plt Count Seg Neuts % (Manual) 86.0 H Lymphocytes % (Manual) 6.0 L Nucleated RBC % Seg Neutrophils # Man 12.6 H Lymphocytes # (Manual) 0.9 L Monocytes # (Manual) PT INR D-Dimer ABG pH POC ABG pCO2 POC ABG pO2 ABG pO2 ABG HCO3 ABG Base Excess ABG Hemoglobin ABG Oxyhemoglobin ABG Sodium ABG Chloride ABG Glucose Oxyhemoglobin Carboxyhemoglobin Sodium Potassium Chloride Carbon Dioxide BUN Creatinine Glucose POC Glucose 151 H 154 H Calcium Ionized Calcium Total Bilirubin Direct Bilirubin AST ALT Total Creatine Kinase Troponin T NT-Pro-B Natriuret Pep Total Protein Albumin LDL Cholesterol Direct HDL Cholesterol TSH Free T4 Arterial Blood Glucose 04/12/21 04/13/21 04/13/21 23:14 05:03 10:00 WBC Hgb Hct MCV MCH MCHC RDW Plt Count Seg Neuts % (Manual) Lymphocytes % (Manual) Nucleated RBC % Seg Neutrophils # Man Lymphocytes # (Manual) Monocytes # (Manual) PT INR D-Dimer ABG pH 7.150 L* POC ABG pCO2 POC ABG pO2 ABG pO2 91.8 H ABG HCO3 37.2 H ABG Base Excess 7.1 H ABG Hemoglobin 7.1 L ABG Oxyhemoglobin ABG Sodium ABG Chloride ABG Glucose Oxyhemoglobin 93.4 L Carboxyhemoglobin Sodium 134 L Potassium Chloride 91.3 L Carbon Dioxide 33 H BUN 63 H Creatinine 2.2 H Glucose 159 H POC Glucose 151 H Calcium 7.8 L Ionized Calcium Total Bilirubin Direct Bilirubin AST ALT Total Creatine Kinase Troponin T NT-Pro-B Natriuret Pep Total Protein Albumin LDL Cholesterol Direct HDL Cholesterol TSH Free T4 Arterial Blood Glucose 04/13/21 04/13/21 04/13/21 12:39 16:37 18:40 WBC Hgb Hct MCV MCH MCHC RDW Plt Count Seg Neuts % (Manual) Lymphocytes % (Manual) Nucleated RBC % Seg Neutrophils # Man Lymphocytes # (Manual) Monocytes # (Manual) PT INR D-Dimer ABG pH 7.237 L POC ABG pCO2 POC ABG pO2 ABG pO2 ABG HCO3 36.2 H ABG Base Excess 7.4 H ABG Hemoglobin 7.8 L ABG Oxyhemoglobin ABG Sodium ABG Chloride ABG Glucose Oxyhemoglobin 93.7 L Carboxyhemoglobin Sodium Potassium Chloride Carbon Dioxide BUN Creatinine Glucose POC Glucose 140 H 132 H Calcium Ionized Calcium Total Bilirubin Direct Bilirubin AST ALT Total Creatine Kinase Troponin T NT-Pro-B Natriuret Pep Total Protein Albumin LDL Cholesterol Direct HDL Cholesterol TSH Free T4 Arterial Blood Glucose 04/13/21 04/14/21 04/14/21 23:55 04:27 04:27 WBC Hgb 8.5 L Hct 29.1 L MCV 72 L MCH 21 L MCHC 29 L RDW 24.9 H Plt Count Seg Neuts % (Manual) Lymphocytes % (Manual) Nucleated RBC % Seg Neutrophils # Man Lymphocytes # (Manual) Monocytes # (Manual) PT INR D-Dimer ABG pH POC ABG pCO2 POC ABG pO2 ABG pO2 ABG HCO3 ABG Base Excess ABG Hemoglobin ABG Oxyhemoglobin ABG Sodium ABG Chloride ABG Glucose Oxyhemoglobin Carboxyhemoglobin Sodium 135 L Potassium Chloride 93.5 L Carbon Dioxide 33 H BUN 68 H Creatinine 1.9 H Glucose 143 H POC Glucose 135 H Calcium 8.1 L Ionized Calcium Total Bilirubin 1.50 H Direct Bilirubin AST 494 H ALT 835 H Total Creatine Kinase Troponin T NT-Pro-B Natriuret Pep Total Protein 9.5 H Albumin 3.1 L LDL Cholesterol Direct HDL Cholesterol TSH Free T4 Arterial Blood Glucose 04/14/21 04/14/21 04/15/21 12:03 17:24 00:19 WBC Hgb Hct MCV MCH MCHC RDW Plt Count Seg Neuts % (Manual) Lymphocytes % (Manual) Nucleated RBC % Seg Neutrophils # Man Lymphocytes # (Manual) Monocytes # (Manual) PT INR D-Dimer ABG pH 7.291 L POC ABG pCO2 75.5 H POC ABG pO2 76.2 L ABG pO2 ABG HCO3 ABG Base Excess ABG Hemoglobin 9.9 L ABG Oxyhemoglobin 91.0 L ABG Sodium 134.9 L ABG Chloride 93.0 L ABG Glucose 146 H Oxyhemoglobin Carboxyhemoglobin 2.2 H Sodium Potassium Chloride Carbon Dioxide BUN Creatinine Glucose POC Glucose 134 H 136 H Calcium Ionized Calcium Total Bilirubin Direct Bilirubin AST ALT Total Creatine Kinase Troponin T NT-Pro-B Natriuret Pep Total Protein Albumin LDL Cholesterol Direct HDL Cholesterol TSH Free T4 Arterial Blood Glucose 146 H 04/15/21 04/15/21 04/15/21 04:55 04:55 05:29 WBC Hgb 8.0 L Hct 27.1 L MCV 70 L MCH 21 L MCHC RDW 24.3 H Plt Count Seg Neuts % (Manual) Lymphocytes % (Manual) Nucleated RBC % Seg Neutrophils # Man Lymphocytes # (Manual) Monocytes # (Manual) PT INR D-Dimer ABG pH POC ABG pCO2 POC ABG pO2 ABG pO2 ABG HCO3 ABG Base Excess ABG Hemoglobin ABG Oxyhemoglobin ABG Sodium ABG Chloride ABG Glucose Oxyhemoglobin Carboxyhemoglobin Sodium Potassium Chloride 95.1 L Carbon Dioxide 36 H BUN 63 H Creatinine 1.5 H Glucose 131 H POC Glucose 118 H Calcium 8.3 L Ionized Calcium Total Bilirubin 1.80 H Direct Bilirubin AST 323 H ALT 609 H Total Creatine Kinase Troponin T NT-Pro-B Natriuret Pep Total Protein 9.3 H Albumin 2.9 L LDL Cholesterol Direct HDL Cholesterol TSH Free T4 Arterial Blood Glucose 04/15/21 04/15/21 04/15/21 11:40 18:30 22:44 WBC Hgb Hct MCV MCH MCHC RDW Plt Count Seg Neuts % (Manual) Lymphocytes % (Manual) Nucleated RBC % Seg Neutrophils # Man Lymphocytes # (Manual) Monocytes # (Manual) PT INR D-Dimer ABG pH POC ABG pCO2 POC ABG pO2 ABG pO2 ABG HCO3 ABG Base Excess ABG Hemoglobin ABG Oxyhemoglobin ABG Sodium ABG Chloride ABG Glucose Oxyhemoglobin Carboxyhemoglobin Sodium Potassium Chloride Carbon Dioxide BUN Creatinine Glucose POC Glucose 139 H 130 H 123 H Calcium Ionized Calcium Total Bilirubin Direct Bilirubin AST ALT Total Creatine Kinase Troponin T NT-Pro-B Natriuret Pep Total Protein Albumin LDL Cholesterol Direct HDL Cholesterol TSH Free T4 Arterial Blood Glucose 04/16/21 04/16/21 04/16/21 04:53 04:53 07:16 WBC 12.5 H Hgb 8.8 L Hct 30.2 L MCV 74 L MCH 21 L MCHC 29 L RDW 24.5 H Plt Count Seg Neuts % (Manual) Lymphocytes % (Manual) Nucleated RBC % Seg Neutrophils # Man Lymphocytes # (Manual) Monocytes # (Manual) PT INR D-Dimer ABG pH POC ABG pCO2 POC ABG pO2 ABG pO2 ABG HCO3 ABG Base Excess ABG Hemoglobin ABG Oxyhemoglobin ABG Sodium ABG Chloride ABG Glucose Oxyhemoglobin Carboxyhemoglobin Sodium Potassium Chloride 96.9 L Carbon Dioxide 35 H BUN 65 H Creatinine 1.5 H Glucose 142 H POC Glucose 138 H Calcium Ionized Calcium Total Bilirubin 1.50 H Direct Bilirubin AST 251 H ALT 572 H Total Creatine Kinase Troponin T NT-Pro-B Natriuret Pep Total Protein 10.1 H Albumin 3.2 L LDL Cholesterol Direct HDL Cholesterol TSH Free T4 Arterial Blood Glucose 04/16/21 04/16/21 04/16/21 07:32 11:29 14:42 WBC Hgb Hct MCV MCH MCHC RDW Plt Count Seg Neuts % (Manual) Lymphocytes % (Manual) Nucleated RBC % Seg Neutrophils # Man Lymphocytes # (Manual) Monocytes # (Manual) PT INR D-Dimer ABG pH 7.086 L 7.188 L POC ABG pCO2 142.2 H 99.3 H POC ABG pO2 196.3 H 132.3 H ABG pO2 ABG HCO3 ABG Base Excess ABG Hemoglobin 10.0 L 9.2 L ABG Oxyhemoglobin ABG Sodium ABG Chloride 96.0 L 96.0 L ABG Glucose 147 H 146 H Oxyhemoglobin Carboxyhemoglobin 1.6 H 2.0 H Sodium Potassium Chloride Carbon Dioxide BUN Creatinine Glucose POC Glucose 131 H Calcium Ionized Calcium Total Bilirubin Direct Bilirubin AST ALT Total Creatine Kinase Troponin T NT-Pro-B Natriuret Pep Total Protein Albumin LDL Cholesterol Direct HDL Cholesterol TSH Free T4 Arterial Blood Glucose 147 H 146 H 04/16/21 04/16/21 04/17/21 17:23 22:34 07:44 WBC Hgb Hct MCV MCH MCHC RDW Plt Count Seg Neuts % (Manual) Lymphocytes % (Manual) Nucleated RBC % Seg Neutrophils # Man Lymphocytes # (Manual) Monocytes # (Manual) PT INR D-Dimer ABG pH POC ABG pCO2 POC ABG pO2 ABG pO2 ABG HCO3 ABG Base Excess ABG Hemoglobin ABG Oxyhemoglobin ABG Sodium ABG Chloride ABG Glucose Oxyhemoglobin Carboxyhemoglobin Sodium Potassium Chloride Carbon Dioxide BUN Creatinine Glucose POC Glucose 117 H 169 H 150 H Calcium Ionized Calcium Total Bilirubin Direct Bilirubin AST ALT Total Creatine Kinase Troponin T NT-Pro-B Natriuret Pep Total Protein Albumin LDL Cholesterol Direct HDL Cholesterol TSH Free T4 Arterial Blood Glucose 04/17/21 04/17/21 04/17/21 08:55 08:55 09:47 WBC Hgb 8.7 L Hct 29.4 L MCV 74 L MCH 22 L MCHC RDW 24.8 H Plt Count Seg Neuts % (Manual) Lymphocytes % (Manual) Nucleated RBC % Seg Neutrophils # Man Lymphocytes # (Manual) Monocytes # (Manual) PT INR D-Dimer ABG pH 7.234 L POC ABG pCO2 90.5 H POC ABG pO2 139.4 H ABG pO2 ABG HCO3 ABG Base Excess ABG Hemoglobin 9.5 L ABG Oxyhemoglobin ABG Sodium ABG Chloride 97.0 L ABG Glucose 179 H Oxyhemoglobin Carboxyhemoglobin 1.7 H Sodium Potassium Chloride 94.4 L Carbon Dioxide 37 H BUN 68 H Creatinine 1.5 H Glucose 178 H POC Glucose Calcium Ionized Calcium Total Bilirubin 1.60 H Direct Bilirubin AST 172 H ALT 437 H Total Creatine Kinase Troponin T NT-Pro-B Natriuret Pep Total Protein 10.1 H Albumin 3.2 L LDL Cholesterol Direct HDL Cholesterol TSH Free T4 Arterial Blood Glucose 179 H 04/17/21 04/17/21 04/17/21 11:39 16:03 17:24 WBC Hgb Hct MCV MCH MCHC RDW Plt Count Seg Neuts % (Manual) Lymphocytes % (Manual) Nucleated RBC % Seg Neutrophils # Man Lymphocytes # (Manual) Monocytes # (Manual) PT INR D-Dimer 5410.10 H ABG pH POC ABG pCO2 POC ABG pO2 ABG pO2 ABG HCO3 ABG Base Excess ABG Hemoglobin ABG Oxyhemoglobin ABG Sodium ABG Chloride ABG Glucose Oxyhemoglobin Carboxyhemoglobin Sodium Potassium Chloride Carbon Dioxide BUN Creatinine Glucose POC Glucose 161 H 130 H Calcium Ionized Calcium Total Bilirubin Direct Bilirubin AST ALT Total Creatine Kinase Troponin T NT-Pro-B Natriuret Pep Total Protein Albumin LDL Cholesterol Direct HDL Cholesterol TSH Free T4 Arterial Blood Glucose 04/17/21 04/18/21 04/18/21 21:52 10:20 11:58 WBC Hgb Hct MCV MCH MCHC RDW Plt Count Seg Neuts % (Manual) Lymphocytes % (Manual) Nucleated RBC % Seg Neutrophils # Man Lymphocytes # (Manual) Monocytes # (Manual) PT INR D-Dimer ABG pH POC ABG pCO2 POC ABG pO2 ABG pO2 ABG HCO3 ABG Base Excess ABG Hemoglobin ABG Oxyhemoglobin ABG Sodium ABG Chloride ABG Glucose Oxyhemoglobin Carboxyhemoglobin Sodium 146 H D Potassium Chloride Carbon Dioxide BUN 75 H Creatinine 1.6 H Glucose 158 H POC Glucose 150 H 143 H Calcium Ionized Calcium Total Bilirubin Direct Bilirubin AST ALT Total Creatine Kinase Troponin T NT-Pro-B Natriuret Pep Total Protein Albumin LDL Cholesterol Direct HDL Cholesterol TSH Free T4 Arterial Blood Glucose 04/18/21 04/18/21 04/18/21 14:19 16:55 16:55 WBC Hgb 8.3 L Hct 27.7 L MCV MCH MCHC RDW Plt Count Seg Neuts % (Manual) Lymphocytes % (Manual) Nucleated RBC % Seg Neutrophils # Man Lymphocytes # (Manual) Monocytes # (Manual) PT 18.7 H INR 1.51 H D-Dimer ABG pH POC ABG pCO2 67.4 H POC ABG pO2 150.6 H ABG pO2 ABG HCO3 ABG Base Excess ABG Hemoglobin 9.3 L ABG Oxyhemoglobin ABG Sodium ABG Chloride ABG Glucose 162 H Oxyhemoglobin Carboxyhemoglobin 1.6 H Sodium Potassium Chloride Carbon Dioxide BUN Creatinine Glucose POC Glucose Calcium Ionized Calcium Total Bilirubin Direct Bilirubin AST ALT Total Creatine Kinase Troponin T NT-Pro-B Natriuret Pep Total Protein Albumin LDL Cholesterol Direct HDL Cholesterol TSH Free T4 Arterial Blood Glucose 162 H 04/18/21 04/18/21 04/18/21 17:40 19:55 19:55 WBC Hgb Hct MCV MCH MCHC RDW Plt Count Seg Neuts % (Manual) Lymphocytes % (Manual) Nucleated RBC % Seg Neutrophils # Man Lymphocytes # (Manual) Monocytes # (Manual) PT INR D-Dimer ABG pH POC ABG pCO2 POC ABG pO2 ABG pO2 ABG HCO3 ABG Base Excess ABG Hemoglobin ABG Oxyhemoglobin ABG Sodium ABG Chloride ABG Glucose Oxyhemoglobin Carboxyhemoglobin Sodium Potassium Chloride Carbon Dioxide BUN Creatinine Glucose POC Glucose 151 H Calcium Ionized Calcium Total Bilirubin Direct Bilirubin AST ALT Total Creatine Kinase Troponin T NT-Pro-B Natriuret Pep Total Protein Albumin LDL Cholesterol Direct HDL Cholesterol TSH 6.140 H Free T4 0.67 L Arterial Blood Glucose 04/18/21 04/19/21 04/19/21 22:19 04:40 04:40 WBC Hgb 8.1 L Hct 27.5 L MCV 73 L MCH 22 L MCHC RDW 25.4 H Plt Count Seg Neuts % (Manual) Lymphocytes % (Manual) Nucleated RBC % Seg Neutrophils # Man Lymphocytes # (Manual) Monocytes # (Manual) PT INR D-Dimer ABG pH POC ABG pCO2 POC ABG pO2 ABG pO2 ABG HCO3 ABG Base Excess ABG Hemoglobin ABG Oxyhemoglobin ABG Sodium ABG Chloride ABG Glucose Oxyhemoglobin Carboxyhemoglobin Sodium Potassium Chloride Carbon Dioxide 37 H D BUN 76 H Creatinine 1.6 H Glucose 173 H POC Glucose 157 H Calcium Ionized Calcium Total Bilirubin Direct Bilirubin AST ALT Total Creatine Kinase Troponin T NT-Pro-B Natriuret Pep Total Protein Albumin LDL Cholesterol Direct HDL Cholesterol TSH Free T4 Arterial Blood Glucose 04/19/21 04/19/21 04/19/21 11:36 17:20 21:17 WBC Hgb Hct MCV MCH MCHC RDW Plt Count Seg Neuts % (Manual) Lymphocytes % (Manual) Nucleated RBC % Seg Neutrophils # Man Lymphocytes # (Manual) Monocytes # (Manual) PT INR D-Dimer ABG pH POC ABG pCO2 POC ABG pO2 ABG pO2 ABG HCO3 ABG Base Excess ABG Hemoglobin ABG Oxyhemoglobin ABG Sodium ABG Chloride ABG Glucose Oxyhemoglobin Carboxyhemoglobin Sodium Potassium Chloride Carbon Dioxide BUN Creatinine Glucose POC Glucose 168 H 174 H 163 H Calcium Ionized Calcium Total Bilirubin Direct Bilirubin AST ALT Total Creatine Kinase Troponin T NT-Pro-B Natriuret Pep Total Protein Albumin LDL Cholesterol Direct HDL Cholesterol TSH Free T4 Arterial Blood Glucose 04/20/21 04/20/21 04/20/21 04:22 11:27 17:12 WBC Hgb Hct MCV MCH MCHC RDW Plt Count Seg Neuts % (Manual) Lymphocytes % (Manual) Nucleated RBC % Seg Neutrophils # Man Lymphocytes # (Manual) Monocytes # (Manual) PT INR D-Dimer ABG pH POC ABG pCO2 POC ABG pO2 ABG pO2 ABG HCO3 ABG Base Excess ABG Hemoglobin ABG Oxyhemoglobin ABG Sodium ABG Chloride ABG Glucose Oxyhemoglobin Carboxyhemoglobin Sodium 147 H Potassium Chloride Carbon Dioxide 37 H BUN 74 H Creatinine 1.3 H Glucose 193 H POC Glucose 154 H 162 H Calcium Ionized Calcium Total Bilirubin Direct Bilirubin AST ALT Total Creatine Kinase Troponin T NT-Pro-B Natriuret Pep Total Protein Albumin LDL Cholesterol Direct HDL Cholesterol TSH Free T4 Arterial Blood Glucose 04/20/21 04/21/21 04/21/21 21:59 09:05 12:28 WBC Hgb Hct MCV MCH MCHC RDW Plt Count Seg Neuts % (Manual) Lymphocytes % (Manual) Nucleated RBC % Seg Neutrophils # Man Lymphocytes # (Manual) Monocytes # (Manual) PT INR D-Dimer ABG pH POC ABG pCO2 POC ABG pO2 ABG pO2 ABG HCO3 ABG Base Excess ABG Hemoglobin ABG Oxyhemoglobin ABG Sodium ABG Chloride ABG Glucose Oxyhemoglobin Carboxyhemoglobin Sodium Potassium Chloride Carbon Dioxide BUN Creatinine Glucose POC Glucose 160 H 168 H 174 H Calcium Ionized Calcium Total Bilirubin Direct Bilirubin AST ALT Total Creatine Kinase Troponin T NT-Pro-B Natriuret Pep Total Protein Albumin LDL Cholesterol Direct HDL Cholesterol TSH Free T4 Arterial Blood Glucose 04/21/21 04/21/21 04/22/21 17:27 21:42 08:15 WBC Hgb Hct MCV MCH MCHC RDW Plt Count Seg Neuts % (Manual) Lymphocytes % (Manual) Nucleated RBC % Seg Neutrophils # Man Lymphocytes # (Manual) Monocytes # (Manual) PT INR D-Dimer ABG pH POC ABG pCO2 POC ABG pO2 ABG pO2 ABG HCO3 ABG Base Excess ABG Hemoglobin ABG Oxyhemoglobin ABG Sodium ABG Chloride ABG Glucose Oxyhemoglobin Carboxyhemoglobin Sodium Potassium Chloride Carbon Dioxide BUN Creatinine Glucose POC Glucose 175 H 158 H 166 H Calcium Ionized Calcium Total Bilirubin Direct Bilirubin AST ALT Total Creatine Kinase Troponin T NT-Pro-B Natriuret Pep Total Protein Albumin LDL Cholesterol Direct HDL Cholesterol TSH Free T4 Arterial Blood Glucose 04/22/21 04/22/21 04/22/21 11:28 17:22 21:14 WBC Hgb Hct MCV MCH MCHC RDW Plt Count Seg Neuts % (Manual) Lymphocytes % (Manual) Nucleated RBC % Seg Neutrophils # Man Lymphocytes # (Manual) Monocytes # (Manual) PT INR D-Dimer ABG pH POC ABG pCO2 POC ABG pO2 ABG pO2 ABG HCO3 ABG Base Excess ABG Hemoglobin ABG Oxyhemoglobin ABG Sodium ABG Chloride ABG Glucose Oxyhemoglobin Carboxyhemoglobin Sodium Potassium Chloride Carbon Dioxide BUN Creatinine Glucose POC Glucose 198 H 194 H 176 H Calcium Ionized Calcium Total Bilirubin Direct Bilirubin AST ALT Total Creatine Kinase Troponin T NT-Pro-B Natriuret Pep Total Protein Albumin LDL Cholesterol Direct HDL Cholesterol TSH Free T4 Arterial Blood Glucose 04/23/21 04/23/21 04/23/21 00:54 00:54 02:51 WBC 11.6 H Hgb 7.9 L Hct 27.2 L MCV 72 L MCH 21 L MCHC 29 L RDW 25.8 H Plt Count 118 L Seg Neuts % (Manual) Lymphocytes % (Manual) Nucleated RBC % Seg Neutrophils # Man Lymphocytes # (Manual) Monocytes # (Manual) PT INR D-Dimer ABG pH POC ABG pCO2 POC ABG pO2 ABG pO2 ABG HCO3 ABG Base Excess ABG Hemoglobin ABG Oxyhemoglobin ABG Sodium ABG Chloride ABG Glucose Oxyhemoglobin Carboxyhemoglobin Sodium 153 H Potassium Chloride Carbon Dioxide 38 H BUN 74 H Creatinine 1.3 H Glucose 205 H POC Glucose Calcium Ionized Calcium Total Bilirubin 1.40 H Direct Bilirubin 0.8 H AST ALT 133 H Total Creatine Kinase Troponin T NT-Pro-B Natriuret Pep Total Protein 8.4 H Albumin 3.2 L LDL Cholesterol Direct HDL Cholesterol TSH Free T4 Arterial Blood Glucose Allied health notes reviewed: nursing
--- NOTE | 2021-04-23 14:56 | Consultation ---
History of Present Illness - Reason for Consult Consult date: 04/23/21 Reason for consult: Visual hallucinations - Chief Complaint Chief complaint: Abdominal wound - History of Present Psychiatric Illness Per Note: 35 years old female with history of morbid obesity, hypertension, asthma COPD sleep apnea was brought to the emergency room because of shortness of breath, edema, generalized malaise, fatigue, and weakness for last couple of days. She states she just does not feel well. She has a headache. She states her legs are swollen. She feels as though she is retaining fluid. She states that she went to her regular doctors on the . They tested her for Covid. It was negative. She was told to go see a scientific programmer analyst. She is not seen a scientific programmer analyst as of yet. She came in here because she was not feeling well and did not know what to do. She has had no sick contacts. Liza Acosta is a 35 year old female with unknown psychiatric history. In my interview with the patient she is confused. The patient stares and mumbles when asked questions. Unable to assess SI/HI/AVHs. PAST PSYCHIATRIC HISTORY:Unable to assess PAST MEDICAL HISTORY: None reported or document Family Psychiatric History: None reported or documented SOCIAL HISTORY: Unable to assess REVIEW OF SYSTEMS: Unable to assess MENTAL STATUS EXAMINATION: Unable to assess Assessment and Plan (1) encounter for screening examination for mental health and behavioral disorder- Z13.30 Current Visit: Yes Status: Acute I agree with the current treatment plan. The patient to comply with previously prescribed medications Risks, benefits and alternatives of medications discussed with the patient, questions answered and consent obtained from patient. PSYCHOTHERAPY: Supportive psychotherapy provided MEDICAL: Per primary team DELIRIUM PRECAUTIONS: Please re-orient patient frequently, keep lights on during the day, and minimize benzodiazepines and opiates as these medications could worsen patient's confusion. LIGHT BULB ASSEMBLER: Defer to primary DISPOSITION:Do not recommend acute inpatient psychiatric hospitalization at this time. FOLLOW-UP: Will follow for medication management. Post hospital care: primary care provider, psychiatric provider Case staffed with Dr. Dunn Medications and Allergies Medications and Allergies Allergies Allergy/AdvReac Type Severity Reaction Status Date / Time No Known Allergies Allergy Unverified 01/27/17 11:17 Home Medications Medication Instructions Recorded Confirmed Last Taken Type Acetaminophen [Acetaminophen TAB] 325 mg PO Q4H PRN #30 tablet 06/30/17 08/08/20 Unknown Rx ALBUTEROL NEB's [Proventil 0.083% 2.5 mg IH Q3HRT PRN #30 day 08/10/20 Unknown Rx NEBS] Albuterol Mdi (or & Nicu Only) 2 puff IH QID PRN #1 inhalation 08/10/20 Unknown Rx [ProAir HFA Inhaler] Azithromycin [Zithromax Z-BIN] 0 mg PO DAILY #1 tab 08/10/20 Unknown Rx Benzonatate [Tessalon Perles] 100 mg PO Q8HR #15 capsule 08/10/20 Unknown Rx Famotidine [Pepcid] 20 mg PO BID #14 tablet 08/10/20 Unknown Rx Ipratropium/Albuterol Sulfate 1 ampul IH TIDRT #30 day 08/10/20 Unknown Rx [DUONEB *Not for PRN Use*] hydroCHLOROthiazide [HCTZ] 25 mg PO QDAY tablet 08/10/20 Unknown Rx hydroCHLOROthiazide [HCTZ] 25 mg PO QDAY #30 tablet 08/10/20 Unknown Rx methylPREDNISolone [Medrol 4MG 4 mg PO DAILY #1 tab.ds.pk 08/10/20 Unknown Rx DOSEPAK (21 tabs)] Active Meds: Active Medications Acetaminophen (Acetaminophen 325 Mg Tab) 650 mg PO Q4H PRN PRN Reason: Pain MILD(1-3)/Fever >100.5/BROWN Last Admin: 04/17/21 06:42 Dose: 650 mg Documented by: Albuterol (Albuterol 2.5 Mg/3 Ml Nebu) 2.5 mg IH Q4HRT PRN PRN Reason: Shortness Of Breath Albuterol/Ipratropium (Ipratropium/Albuterol Sulfate 3 Ml Ampul.Neb) 1 ampul IH TIDRT [facility] Last Admin: 04/23/21 14:28 Dose: 1 ampul Documented by: Aspirin (Aspirin Ec 325 Mg Tab) 325 mg PO QDAY [facility] Last Admin: 04/23/21 11:00 Dose: 325 mg Documented by: Atorvastatin Calcium (Atorvastatin 40 Mg Tab) 40 mg PO QHS [facility] Last Admin: 04/22/21 22:27 Dose: 40 mg Documented by: Benzonatate (Benzonatate 100 Mg Cap) 100 mg PO Q8HR [facility] Last Admin: 04/23/21 05:47 Dose: 100 mg Documented by: Guaifenesin (Guaifenesin 100 Mg/5 Ml Oral Liqd) 200 mg PO Q4H PRN PRN Reason: Cough Last Admin: 04/17/21 06:43 Dose: 200 mg Documented by: Haloperidol Lactate (Haloperidol Lactate 5 Mg/1 Ml Inj) 5 mg IV Q6H PRN PRN Reason: Agitation Last Admin: 04/21/21 03:30 Dose: 5 mg Documented by: Heparin Sodium (Porcine) (Heparin 5,000 Unit/1 Ml Vial) 5,000 unit SUB-Q Q8HR [facility] Last Admin: 04/23/21 05:47 Dose: 5,000 unit Documented by: Hydralazine HCl (Hydralazine 20 Mg/1 Ml Inj) 10 mg IV Q6H PRN PRN Reason: Blood Pressure Last Admin: 04/22/21 08:54 Dose: 10 mg Documented by: Dextrose (D5w) 1,000 mls @ 75 mls/hr IV DIRECT EKATERINA Levothyroxine Sodium (Levothyroxine 100 Mcg Tab) 100 mcg PO DAILY@0600 [facility] Last Admin: 04/23/21 05:47 Dose: 100 mcg Documented by: Methylprednisolone Sodium Succinate (Methylprednisolone Sod Succinate 40 Mg/1 Ml Inj) 20 mg IV Q12HR [facility] Last Admin: 04/23/21 11:00 Dose: 20 mg Documented by: Nitroglycerin (Nitroglycerin 0.4 Mg Tab Subl) 0.4 mg SL Q5M PRN PRN Reason: Chest Pain Nystatin (Nystatin Powder 15 Gm) 1 applic TP BID [facility] Last Admin: 04/23/21 11:00 Dose: 1 applic Documented by: Ondansetron HCl (Ondansetron 4 Mg/2 Ml Inj) 4 mg IV Q8H PRN PRN Reason: Nausea And Vomiting Last Admin: 04/15/21 23:51 Dose: 4 mg Documented by: Oxycodone/Acetaminophen (Oxycodone /Acetaminophen 5-325mg Tab) 1 tab PO Q6H PRN PRN Reason: Pain, Moderate (4-6) Last Admin: 04/21/21 16:26 Dose: 1 tab Documented by: Pantoprazole Sodium (Pantoprazole 40 Mg Tab) 40 mg PO QDAC [facility] Last Admin: 04/23/21 08:00 Dose: 40 mg Documented by: Quetiapine Fumarate (Quetiapine 25 Mg Tab) 75 mg PO QHS [facility] Last Admin: 04/22/21 22:27 Dose: 75 mg Documented by: Sodium Chloride (Sodium Chloride 0.9% 10 Ml Flush Syringe) 10 ml IV BID [facility] Last Admin: 04/23/21 11:00 Dose: 10 ml Documented by: Sodium Chloride (Sodium Chloride 0.9% 10 Ml Flush Syringe) 10 ml IV PRN PRN PRN Reason: LINE FLUSH Tramadol HCl (Tramadol 50 Mg Tab) 50 mg PO Q6H PRN PRN Reason: Pain, Moderate (4-6) Last Admin: 04/20/21 21:50 Dose: 50 mg Documented by: Mental Status Exam - Vital signs Last Vital Signs Temp 100.2 F H 04/23/21 12:35 Pulse 116 H 04/23/21 14:25 Resp 20 04/23/21 14:25 BP 103/56 04/23/21 12:35 Pulse Ox 95 04/23/21 14:39 Results Result Diagrams: 04/23/21 02:51 04/23/21 00:54 Abnormal lab results 04/22/21 04/22/21 04/23/21 Range/Units 17:22 21:14 00:54 WBC (4.5-11.0) K/mm3 Hgb (10.1-14.3) gm/dl Hct (30.3-42.9) % MCV (79-97) fl MCH (28-32) pg MCHC (30-34) % RDW (13.2-15.2) % Plt Count (140-440) K/mm3 Sodium 153 H (137-145) mmol/L Carbon Dioxide 38 H (22-30) mmol/L BUN 74 H (7-17) mg/dL Creatinine 1.3 H (0.6-1.2) mg/dL Glucose 205 H (65-100) mg/dL POC Glucose 194 H 176 H (70-105) mg/dL Total Bilirubin (0.1-1.2) mg/dL Direct Bilirubin (0-0.2) mg/dL ALT (7-56) units/L Total Protein (6.3-8.2) g/dL Albumin (3.9-5) g/dL 04/23/21 04/23/21 Range/Units 00:54 02:51 WBC 11.6 H (4.5-11.0) K/mm3 Hgb 7.9 L (10.1-14.3) gm/dl Hct 27.2 L (30.3-42.9) % MCV 72 L (79-97) fl MCH 21 L (28-32) pg MCHC 29 L (30-34) % RDW 25.8 H (13.2-15.2) % Plt Count 118 L (140-440) K/mm3 Sodium (137-145) mmol/L Carbon Dioxide (22-30) mmol/L BUN (7-17) mg/dL Creatinine (0.6-1.2) mg/dL Glucose (65-100) mg/dL POC Glucose (70-105) mg/dL Total Bilirubin 1.40 H (0.1-1.2) mg/dL Direct Bilirubin 0.8 H (0-0.2) mg/dL ALT 133 H (7-56) units/L Total Protein 8.4 H (6.3-8.2) g/dL Albumin 3.2 L (3.9-5) g/dL All other labs normal.
[2021-04-23 16:13] LABS: Band Neutrophils # (Manual) 0.2 K/mm3; Total Cells Counted 100
[2021-04-23 16:15] LABS: Anisocytosis 2+; Hypochromasia 2+
[2021-04-23 16:17] LABS: Ovalocytes Few; Target Cells Few
[2021-04-23 16:18] LABS: Dimorphic RBC Yes
--- NOTE | 2021-04-23 17:10 | Progress Note ---
Assessment and Plan Assessment and plan: -Acute on chronic hypoxic respiratory failure; requiring BiPAP Current Visit: Yes Status: Acute Continue oxygen titrate O2 sats more than 90% Patient sometimes requires continuous BiPAP Multifactorial obesity hypoventilation syndrome Obstructive sleep apnea, COPD, CHF Pulmonary and cardiology following Treat the underlying cause Patient already has home oxygen --Acute exacerbation COPD (chronic obstructive pulmonary disease) Current Visit: Yes Status: Acute Oxygen titrate O2 sats to more than 90%, patient is requiring BiPAP most of the times Wean as tolerated, nebulizers, IV steroids, IV antibiotics, inhalation steroids -- Morbid obesity; BMI 104.4 Current Visit: Yes Status: Acute Patient needs to participate on professional weight reduction program when medically stable. Strongly recommend outpatient follow-up with bariatric surgeon upon discharge when stable --Obesity hypoventilation syndrome; --Obstructive sleep apnea; -- Non-ST elevation DC (NSTEMI) Current Visit: Yes Status: Acute Cardiology evaluation noted and appreciated, continue current cardiac medications Supportive care -- Acute exacerbation of CHF (congestive heart failure) Current Visit: Yes Status: Acute Fluid restriction. Maintain input output. Antifailure medications low-sodium diet Input output monitoring, cardiology following --hypothyroidism /new onset Current Visit: Yes Status: Acute Continue Synthroid, closely monitor Patient needs follow-up with tunnel elastic operator lockstitch as outpatient upon DC -- Hypoglycemia/present on admission Current Visit: Yes Status: Acute Now resolved closely monitor blood sugars --acute kidney injury with vasomotor nephropathy Gentle hydration, monitor renal function, avoid nephrotoxins -- Lymphedema of the abdominal wall Due to morbid obesity, supportive care fluid restriction Low-sodium diet --Anemia of chronic disease; Closely monitor H&H, transfuse as needed --Acute transaminitis acute liver failure Acute transaminitis; LFTs trending down Hepatocellular pattern, multifactorial NAFLD, congestive hepatopathy, DILI, GI evaluation and recommendations noted, LFTs trending down -- hypertension Current Visit: Yes Status: Acute Plan to address problem: We will continue the home medication. Hydralazine 10 mg IV every 6 hours as needed. We will monitor the blood pressure closely -- DVT prophylaxis Current Visit: No Status: Acute Plan to address problem: Heparin 5000 units subcu every 8 hours for DVT prophylaxis. Pepcid 20 mg p.o. twice daily for GI prophylaxis. Patient is a full code Also monitor the patient and adjust management as needed DC planning per case management when medically stable and cleared by consultants 04/09 -Patient is on heparin drip for non-STEMI, cardiology is following. -Patient is off Lasix and SUNG inhibitors because of GILBERTO. -Kidney function is worsening overnight and I put a consult for nephrology. -Patient is hypotensive and blood pressure from this morning was 101/41. We will continue to monitor. And if it is dropping we we will give him fluid. -Echo was done and EF of 50 to 55%. Diastolic dysfunction is indeterminate. Management per cardiology -Patient has COPD continues on dexamethasone, nebulizer treatment as needed. -Patient has hyponatremia and hyperkalemia. I give the patient Kayexalate. Monitor electrolytes. Will follow nephrology for additional recommendation. 04/10 -Renal function is worsening, nephrology is following -Blood pressure is better today -Hyperkalemia; I added Kayexalate -Morbid obesity 04/11 -Slight improvement in creatinine. Hyponatremia worsened. Nephrology is following and put the patient back on Lasix. -Blood PRESSURE IS BETTER today -Potassium this morning was 5.8, I ordered 60 g of Kayexalate -Morbidly obese -Obesity hypoventilation syndrome 04/12 -Creatinine is improving and this morning was 2.4 -Hyponatremia improved this morning was 134. Patient is on Lasix -Blood pressure is better -Patient is on 10 L of oxygen; worsened -Morbidly obese, CLAUDIA 04/13: Follow ordered ultrasound of abdomen, per Physician unable to get CT. I ordered an ABG due to my concern about her breathing pattern this morning, patient may benefit from. Will try to establish if patient has a primary pulmonary doctor. ABG is showing consistent with Respiratory Acidosis. Will place on BIPAP now. May need to transfer to IM for closer monitoring. Patient likely with Obesity Hypoventilation syndrome. cardiology work up, ongoing. RENAL SHOWING SOME IMPROVEMENT Guarded prognosis 04/14: Patient seen and examined today identified some lesion under the pannus will obtain wound care and wound surgeon evaluation. Nephrology input noted continue diuresis and stop the sodium tabs creatinine is stable. I did discuss with the family and updated them. We will continue to hold SUNG and ARB and if pressures continue to drop may need to hold diuresis also despite as written above. Monitor labs including H&H. She is more awake review of ABG shows improving CO2. Will discuss with case management as patient may need BiPAP on discharge home. I also updated the family 04/15: Patient showing some clinical improvement. Liver enzymes is showing mild improvement although bilirubin increased slightly. GI input noted and as discussed by his notes below "Abnormal liver enzymes in hepatocellular pattern. broad ddx and likely multifactorial causes including NAFLD, congestive hepatopathy, possibly DILI. will check viral hep serologies. US with limited views, possible coarsening of the liver" Patient also evaluated by surgery noted with the lymphedema of abdominal wall and open wound of the abdominal wall without penetration into the abdominal cavity with recommendation to pack the wounds daily with mesalt. Need to maintain dry environment discussed with nursing staff. Elevate the pannus and optimize nutrition for which I will get nutritional consult. No surgical intervention at this time. Patient is bedbound when I asked when last she ambulated she said while "I guess he has not worked" but it has been a while. Unfortunately the LTAC center unwilling to accept the patient will discuss with pulmonary and with case management about obtaining BiPAP for this patient and possible SNF referral. 04/16: Patient this morning and was noted significantly lethargic and unresponsive respiratory and a code to be called. The patient resuscitated without any invasive procedure. ABG was obtained showed a CO2 of 142. Despite using BiPAP for some time through the night, sure how long she used it for. I have discontinued all IV opioids and recommend no IV opioids for this patient at this time. I also discontinued p.o. medications as an essential medication and change to IV. We will repeat an ABG in an hour to see if there is some improvement. Patient remains at high risk for possible intubation. Clinical condition is guarded 04/17: Patient remains on BiPAP this am, has some intermittent twitching, will check EEG, not likely seizure, but will monitor. Continue current management , check Albumin and Pre-Albumin level. Remains critically ill. Liver status showing improvement. 04/18: Patient with elevated D-dimer unfortunately size precludes being able to have a CTA chest done here to rule out pulmonary embolism. Doppler of lower extremities is pending. We will continue subcu anticoagulation with heparin at this time. Until Doppler is resolved. Patient is not hypoxic so doubt pulmonary embolism at this time. Her problem remains hypercapnia. I did take time to go over her history while she has been around hospital in the past and noticed a remarkable increase in her BMI from the last 2 years. Discussed with the duct layer supervisor will agree to check thyroid function test. Critical care time 35- minute 04/19: Patient with hypothyroidism, while she does not appear to be with myxedema coma at this time. Will initiate levothyroxine as I believe that this will make profound impact her management at this time, continue BiPAP continue current management. Seroquel was added by pulmonary for delirium and agitation management, Ventimask during the day and BiPAP at night 04/20: Continue levothyroine, can change to PO in am. Will obtain Psych consult, she is clinically stable and will transfer to floor 04/21; levothyroxine changed to 100 mg p.o. daily Zoo Director recommendations noted and appreciated Monitor LFTs 04/22; patient continues to be hypoxemic on continuous BiPAP Consultants and recommendations noted and appreciated Continue current management 04/23; patient has intermittent hallucination, psych following Patient is currently on nasal cannula oxygen, refusing BiPAP Mild distress and confused History Interval history: I have seen and examined the patient at the bedside Patient's chart and medications reviewed Patient is confused, mild distress On 4 L nasal cannula oxygen Hospitalist Physical - Constitutional Vitals: Temp Pulse Resp BP Pulse Ox 100.2 F H 116 H 20 103/56 95 04/23/21 12:35 04/23/21 14:25 04/23/21 14:25 04/23/21 12:35 04/23/21 14:39 General appearance: Present: mild distress, well-nourished, obese (Morbidly obese), other (Confused) - EENT Eyes: Present: PERRL, EOM intact - Neck Neck: Present: supple, normal ROM - Respiratory Respiratory effort: normal Respiratory: bilateral: diminished, negative: rales, rhonchi, wheezing - Cardiovascular Rhythm: regular Heart Sounds: Present: S1 & S2 - Extremities Extremities: no ischemia, No edema - Abdominal General gastrointestinal: soft, non-tender, non-distended, normal bowel sounds - Integumentary Integumentary: Present: clear, warm - Psychiatric Psychiatric: appropriate mood/affect, cooperative - Neurologic Neurologic: moves all extremities HEART Score - HEART Score Troponin: Troponin T 0.078 ng/mL (0.00-0.029) H D 04/08/21 13:03 Results - Labs CBC & Chem 7: 04/23/21 02:51 04/23/21 00:54 Labs: Laboratory Last Values WBC 11.6 K/mm3 (4.5-11.0) H 04/23/21 02:51 RBC 3.79 M/mm3 (3.65-5.03) 04/23/21 02:51 Hgb 7.9 gm/dl (10.1-14.3) L 04/23/21 02:51 Hct 27.2 % (30.3-42.9) L 04/23/21 02:51 MCV 72 fl (79-97) L 04/23/21 02:51 MCH 21 pg (28-32) L 04/23/21 02:51 MCHC 29 % (30-34) L 04/23/21 02:51 RDW 25.8 % (13.2-15.2) H 04/23/21 02:51 Plt Count 118 K/mm3 (140-440) L 04/23/21 02:51 Add Manual Diff Complete 04/23/21 02:51 Total Counted 100 04/23/21 02:51 Seg Neuts % (Manual) 91.0 % (40.0-70.0) H 04/23/21 02:51 Band Neutrophils % 2.0 % 04/23/21 02:51 Lymphocytes % (Manual) 4.0 % (13.4-35.0) L 04/23/21 02:51 Reactive Lymphs % (Man) 1.0 % 04/12/21 14:11 Monocytes % (Manual) 3.0 % (0.0-7.3) 04/23/21 02:51 Metamyelocytes % 2.0 % 04/12/21 14:11 Myelocytes % 2.0 % 04/08/21 04:03 Nucleated RBC % Not Reportable 04/23/21 02:51 Seg Neutrophils # Man 10.6 K/mm3 (1.8-7.7) H 04/23/21 02:51 Band Neutrophils # 0.2 K/mm3 04/23/21 02:51 Lymphocytes # (Manual) 0.5 K/mm3 (1.2-5.4) L 04/23/21 02:51 Abs React Lymphs (Man) 0.0 K/mm3 04/23/21 02:51 Monocytes # (Manual) 0.3 K/mm3 (0.0-0.8) 04/23/21 02:51 Eosinophils # (Manual) 0.0 K/mm3 (0.0-0.4) 04/23/21 02:51 Basophils # (Manual) 0.0 K/mm3 (0.0-0.1) 04/23/21 02:51 Metamyelocytes # 0.0 K/mm3 04/23/21 02:51 Myelocytes # 0.0 K/mm3 04/23/21 02:51 Promyelocytes # 0.0 K/mm3 04/23/21 02:51 Blast Cells # 0.0 K/mm3 04/23/21 02:51 WBC Morphology Not Reportable 04/23/21 02:51 Hypersegmented Neuts Not Reportable 04/23/21 02:51 Hyposegmented Neuts Not Reportable 04/23/21 02:51 Hypogranular Neuts Not Reportable 04/23/21 02:51 Smudge Cells Not Reportable 04/23/21 02:51 Toxic Granulation Not Reportable 04/23/21 02:51 Toxic Vacuolation Not Reportable 04/23/21 02:51 Dohle Bodies Not Reportable 04/23/21 02:51 Pelger-Huet Anomaly Not Reportable 04/23/21 02:51 Ana Cristina Rods Not Reportable 04/23/21 02:51 Platelet Estimate Not Reportable 04/23/21 02:51 Clumped Platelets Not Reportable 04/23/21 02:51 Plt Clumps, EDTA Not Reportable 04/23/21 02:51 Large Platelets Not Reportable 04/23/21 02:51 Giant Platelets Not Reportable 04/23/21 02:51 Platelet Satelliting Not Reportable 04/23/21 02:51 Plt Morphology Comment Not Reportable 04/23/21 02:51 RBC Morphology Not Reportable 04/23/21 02:51 Dimorphic RBCs Yes 04/23/21 02:51 Polychromasia Few 04/23/21 02:51 Hypochromasia 2+ 04/23/21 02:51 Poikilocytosis Not Reportable 04/23/21 02:51 Anisocytosis 2+ 04/23/21 02:51 Microcytosis Not Reportable 04/23/21 02:51 Macrocytosis Not Reportable 04/23/21 02:51 Spherocytes Not Reportable 04/23/21 02:51 Pappenheimer Bodies Not Reportable 04/23/21 02:51 Sickle Cells Not Reportable 04/23/21 02:51 Target Cells Few 04/23/21 02:51 Tear Drop Cells Not Reportable 04/23/21 02:51 Ovalocytes Few 04/23/21 02:51 Helmet Cells Not Reportable 04/23/21 02:51 [place] Bodies Not Reportable 04/23/21 02:51 [place] Rings Not Reportable 04/23/21 02:51 Alvarado Cells Not Reportable 04/23/21 02:51 Bite Cells Not Reportable 04/23/21 02:51 Crenated Cell Not Reportable 04/23/21 02:51 Elliptocytes Not Reportable 04/23/21 02:51 Acanthocytes (Spur) Not Reportable 04/23/21 02:51 Rouleaux Not Reportable 04/23/21 02:51 Hemoglobin C Crystals Not Reportable 04/23/21 02:51 Schistocytes Not Reportable 04/23/21 02:51 Malaria parasites Not Reportable 04/23/21 02:51 Tyshawn Bodies Not Reportable 04/23/21 02:51 Hem Pathologist Commnt No 04/23/21 02:51 PT 18.7 Sec. (12.2-14.9) H 04/18/21 16:55 INR 1.51 (0.87-1.13) H 04/18/21 16:55 APTT 25.2 Sec. (24.2-36.6) 04/18/21 16:55 D-Dimer 5410.10 ng/mlDDU (0-234) H 04/17/21 16:03 ABG pH 7.382 (7.320-7.450) 04/18/21 14:19 POC ABG pCO2 67.4 mmHg (32.0-48.0) H 04/18/21 14:19 ABG pCO2 86.9 mm Hg 04/13/21 18:40 POC ABG pO2 150.6 mmHg (83-108) H 04/18/21 14:19 ABG pO2 81.8 mm Hg (80.0-90.0) 04/13/21 18:40 POC ABG HCO3 39.2 04/18/21 14:19 ABG HCO3 36.2 mmol/L (20.0-26.0) H 04/13/21 18:40 ABG O2 Saturation 99.4 (0-100) 04/18/21 14:19 ABG O2 Content 10.4 (0.0-44) 04/13/21 18:40 POC ABG Base Excess 12.2 04/18/21 14:19 ABG Base Excess 7.4 mmol/L (-2.0-3.0) H 04/13/21 18:40 ABG Hemoglobin 9.3 (12.0-17.5) L 04/18/21 14:19 ABG Oxyhemoglobin 97.5 (94-98) 04/18/21 14:19 ABG Carboxyhemoglobin 1.9 % (0.0-5.0) 04/13/21 18:40 ABG Methemoglobin 0.3 (0.0-1.5) 04/18/21 14:19 ABG Sodium 143.0 mmol/L (136.0-145.0) 04/18/21 14:19 ABG Potassium 4.2 mmol/L (3.40-4.50) 04/18/21 14:19 ABG Chloride 98.0 mmol/L (98-107) 04/18/21 14:19 ABG Glucose 162 mg/dL (65-95) H 04/18/21 14:19 Oxyhemoglobin 93.7 % (95.0-99.0) L 04/13/21 18:40 Carboxyhemoglobin 1.6 (0.5-1.5) H 04/18/21 14:19 FiO2 30 % 04/13/21 18:40 FiO2 % 35.0 04/18/21 14:19 Sodium 153 mmol/L (137-145) H 04/23/21 00:54 Potassium 4.9 mmol/L (3.6-5.0) 04/23/21 00:54 Chloride 106.4 mmol/L (98-107) 04/23/21 00:54 Carbon Dioxide 38 mmol/L (22-30) H 04/23/21 00:54 Anion Gap 14 mmol/L 04/23/21 00:54 BUN 74 mg/dL (7-17) H 04/23/21 00:54 Creatinine 1.3 mg/dL (0.6-1.2) H 04/23/21 00:54 Estimated GFR 57 ml/min 04/23/21 00:54 BUN/Creatinine Ratio 57 % 04/23/21 00:54 Glucose 205 mg/dL (65-100) H 04/23/21 00:54 POC Glucose 186 mg/dL (70-105) H 04/23/21 16:09 Osmolality 301 Mosm/kg 04/09/21 23:15 Calcium 9.4 mg/dL (8.4-10.2) 04/23/21 00:54 Ionized Calcium 3.6 mg/dL (4.8-5.6) L 04/09/21 23:15 Magnesium 2.10 mg/dL (1.7-2.3) 04/23/21 00:54 Total Bilirubin 1.40 mg/dL (0.1-1.2) H 04/23/21 00:54 Direct Bilirubin 0.8 mg/dL (0-0.2) H 04/23/21 00:54 Indirect Bilirubin 0.6 mg/dL 04/23/21 00:54 AST 36 units/L (5-40) 04/23/21 00:54 ALT 133 units/L (7-56) H 04/23/21 00:54 Alkaline Phosphatase 60 units/L (35-129) 04/23/21 00:54 Total Creatine Kinase 1712 units/L (30-135) H 04/10/21 10:04 Troponin T 0.078 ng/mL (0.00-0.029) H D 04/08/21 13:03 NT-Pro-B Natriuret Pep 7573 pg/mL (0-450) H 04/07/21 22:04 Total Protein 8.4 g/dL (6.3-8.2) H 04/23/21 00:54 Albumin 3.2 g/dL (3.9-5) L 04/23/21 00:54 Albumin/Globulin Ratio 0.6 % 04/23/21 00:54 Triglycerides 105 mg/dL (2-149) 04/07/21 22:04 Cholesterol 85 mg/dL (50-199) 04/07/21 22:04 LDL Cholesterol Direct 47 mg/dL (50-130) L 04/07/21 22:04 HDL Cholesterol 25 mg/dL (40-59) L 04/07/21 22:04 Cholesterol/HDL Ratio 3.40 % 04/07/21 22:04 TSH 6.140 mlU/mL (0.270-4.200) H 04/18/21 19:55 Free T4 0.67 ng/dL (0.76-1.46) L 04/18/21 19:55 Total Cortisol 41.3 mcg/dL () 04/10/21 10:04 Arterial Blood Glucose 162 mg/dL (65-95) H 04/18/21 14:19 Arterial Blood Ionized Calcium 4.6 mg/dL (4.6-5.3) 04/16/21 07:32 Urine Osmolality 157 Mosm/kg 04/09/21 18:46 Urine Sodium 16 mmol/L 04/09/21 18:46 Coronavirus (PCR) Negative (Negative) 04/14/21 Unknown Hepatitis A IgM Ab Non-reactive (NonReactive) 04/14/21 18:45 Hep Bs Antigen Nonreactive (Negative) 04/14/21 18:45 Hepatitis C Antibody Non-reactive (NonReactive) 04/14/21 18:45 Zambrano/IV: Voiding Method Indwelling Catheter Active Medications - Current Medications Current Medications: Generic Name Dose Route Start Last Admin Trade Name Freq PRN Reason Stop Dose Admin Acetaminophen 650 mg 04/08/21 03:00 04/17/21 06:42 Acetaminophen 325 Mg Tab PO 650 mg Q4H PRN Administration Pain MILD(1-3)/Fever >100.5/BROWN Albuterol 2.5 mg 04/08/21 03:00 Albuterol 2.5 Mg/3 Ml Nebu IH Q4HRT PRN Shortness Of Breath Albuterol/Ipratropium 1 ampul 04/08/21 08:00 04/23/21 14:28 Ipratropium/Albuterol Sulfate 3 Ml Ampul.Neb IH 1 ampul TIDRT EKATERINA Administration Aspirin 325 mg 04/09/21 10:00 04/23/21 11:00 Aspirin Ec 325 Mg Tab PO 325 mg QDAY EKATERINA Administration Atorvastatin Calcium 40 mg 04/08/21 22:00 04/22/21 22:27 Atorvastatin 40 Mg Tab PO 40 mg QHS EKATERINA Administration Benzonatate 100 mg 04/08/21 06:00 04/23/21 05:47 Benzonatate 100 Mg Cap PO 100 mg Q8HR EKATERINA Administration Guaifenesin 200 mg 04/12/21 14:47 04/17/21 06:43 Guaifenesin 100 Mg/5 Ml Oral Liqd PO 200 mg Q4H PRN Administration Cough Haloperidol Lactate 5 mg 04/18/21 16:27 04/21/21 03:30 Haloperidol Lactate 5 Mg/1 Ml Inj IV 5 mg Q6H PRN Administration Agitation Heparin Sodium (Porcine) 5,000 unit 04/18/21 14:00 04/23/21 05:47 Heparin 5,000 Unit/1 Ml Vial SUB-Q 5,000 unit Q8HR EKATERINA Administration Hydralazine HCl 10 mg 04/19/21 17:25 04/22/21 08:54 Hydralazine 20 Mg/1 Ml Inj IV 10 mg Q6H PRN Administration Blood Pressure Dextrose 1,000 mls @ 75 mls/hr 04/23/21 12:00 D5w IV DIRECT EKATERINA Levothyroxine Sodium 100 mcg 04/22/21 06:00 04/23/21 05:47 Levothyroxine 100 Mcg Tab PO 100 mcg DAILY@0600 EKATERINA Administration Methylprednisolone Sodium Succinate 20 mg 04/16/21 10:00 04/23/21 11:00 Methylprednisolone Sod Succinate 40 Mg/1 Ml Inj IV 20 mg Q12HR EKATERINA Administration Nitroglycerin 0.4 mg 04/08/21 03:00 Nitroglycerin 0.4 Mg Tab Subl SL Q5M PRN Chest Pain Nystatin 1 applic 04/08/21 18:00 04/23/21 11:00 Nystatin Powder 15 Gm TP 1 applic BID EKATERINA Administration Ondansetron HCl 4 mg 04/08/21 03:00 04/15/21 23:51 Ondansetron 4 Mg/2 Ml Inj IV 4 mg Q8H PRN Administration Nausea And Vomiting Oxycodone/Acetaminophen 1 tab 04/08/21 03:00 04/21/21 16:26 Oxycodone /Acetaminophen 5-325mg Tab PO 1 tab Q6H PRN Administration Pain, Moderate (4-6) Pantoprazole Sodium 40 mg 04/23/21 07:30 04/23/21 08:00 Pantoprazole 40 Mg Tab PO 40 mg QDAC EKATERINA Administration Quetiapine Fumarate 75 mg 04/18/21 22:00 04/22/21 22:27 Quetiapine 25 Mg Tab PO 75 mg QHS EKATERINA Administration Sodium Chloride 10 ml 04/08/21 10:00 04/23/21 11:00 Sodium Chloride 0.9% 10 Ml Flush Syringe IV 10 ml BID EKATERINA Administration Sodium Chloride 10 ml 04/08/21 03:00 Sodium Chloride 0.9% 10 Ml Flush Syringe IV PRN PRN LINE FLUSH Tramadol HCl 50 mg 04/08/21 03:00 04/20/21 21:50 Tramadol 50 Mg Tab PO 50 mg Q6H PRN Administration Pain, Moderate (4-6) Nutrition/Malnutrition Assess - Dietary Evaluation Nutrition/Malnutrition Findings: Nutrition Notes Start: 04/08/21 14:21 Freq: Status: Active Protocol: Document 04/20/21 15:55 MARIELY (Rec: 04/20/21 16:53 MARIELY [id number]) Nutrition Notes Need for Assessment generated from: sql tech Initial or Follow up Reassessment Current Diagnosis Heart Failure Other Pertinent Diagnosis Accute Kidney Injury Current Diet Renal Diet (from B 04/13). Labs/Tests 04/20: Na 147, CO2 37, BUN 74, Cr 1.3, Glu 193. Pertinent Medications Reviewed. Height 5 ft 4 in Weight 277.3 kg [place] Body Weight (kg) 54.54 BMI 104.9 Intake Prior to Admission Good Weight change and time frame expect weight fluctuations r/t fluid therapy, CHF complications Weight Status Morbidly Obese Subjective/Other Information Pt developed accute renal condition that requires support from Renal Diet. Percent of energy/protein needs met: Renal diet provides all energy /protein needs (2072 Kcal/77 g ) per day. Burn Absent Trauma Absent GI Symptoms None Food Allergy No Skin Integrity/Comment Integumentary: clear, warm, dry. Current % PO Good (75-100%) Minimum of two criteria No physical signs of malnutrition #1 Nutrition Diagnosis Altered nutrition-related laboratory values,Overweight/ obesity Comments: Pt developed accute renal condition that requires support from Renal Diet. Etiology Accute Kidney Injury resulted from complications from concomitant conditions As Evidenced by Signs and Symptoms Altered lab values and MD diagnosis Diagnosis Progress(for reassessment Worsened documentation) Is patient on ventilator? No Is Patient Ambulatory and/or Out of Bed Yes REE-([facility]-ambulatory/OOB) [ 5901.900 [id number]] Kcal/Kg value to use for calculation 10 Approximate Energy Requirements Using 2773 kcal/Kg Calculation Used for Recommendations Kcal/Kg of IBW Additional Notes Protein 1.0 g/Kg; 55 g/day; 220 Kcal/day (from IBW). Fluids: 1ml/kcal or per MD Nutrition Intervention Change Diet Order: Continue Renal Diet as MD prescribed. Teaching Recipient Patient Learning Readiness Good Teaching Methods Discussion Response to Teaching Verbalize understanding, Reinforcement needed Barriers to Learning Motivation,Emotional,Social Patient aware of follow up options Yes Actions To Overcome Barriers Collaboration with Other Providers Goal #1 Achieve and maintain acceptable chemistry lab values during LOS Goal #2 Support Improvement in renal functions while providing energy/protein needs during LOS Follow-Up By: 04/27/21 Additional Comments Continue monitoring % of food intake and tolerance, and BM. Reinforce education towards bariatric therapy after accute kidney injury is solved.
[2021-04-23] MEDS: QUEtiapine 25 MG TAB PO SCH (23:01)
[2021-04-23] MEDS: DEXTROSE 5% IN WATER 1,000 ML IV SCH (23:18)
[2021-04-24] MEDS: LEVOTHYROXINE 100 MCG TAB PO SCH (06:07)
[2021-04-24] MEDS: BENZONATATE 100 MG CAP PO SCH ×3 (06:07→22:53)
[2021-04-24] MEDS: HEPARIN 5,000 UNIT/1 ML VIAL SUB-Q SCH ×3 (06:07→22:56)
[2021-04-24] MEDS: NYSTATIN POWDER 15 GM TP SCH ×3 (06:23→22:53)
[2021-04-24] MEDS: IPRATROPIUM/ALBUTEROL SULFATE 3 ML AMPUL.NEB IH SCH ×3 (09:27→19:11)
--- NOTE | 2021-04-24 09:43 | Progress Note ---
Assessment and Plan Assessment Acute kidney injury, unknown baseline. Renal ultrasound notes poor visualization due to body habitus. Hypernatremia Hyperkalemia Hypocalcemia Morbid obesity Acute hypoxemic and hypercapnic respiratory failure Acute exacerbation of CHF (congestive heart failure) Hypertension Sleep apnea Recommendations Na higher previously at 147->153, no labs for review so far this AM Increase free water intake as able, if unable to drink, will continue D5W Creatinine stable at 1.3 Excellent urine output noted of 2.5L Now with soft BP, holding meds echo noted, likely diastolic disease Avoid diuresis if able given hypernatremia, note good urine output Maintain MAP more than 65 Hold SUNG/ARB at this time Renally dose medications Avoid nephrotoxins Renal diet Daily renal labs Subjective Date of service: 04/24/21 Principal diagnosis: Ac hypoxemic and hypercapnic resp failure; AE-CHF; Morbid obesity; CLAUDIA/OHS Interval history: Patient was seen for her renal issues-remains off Bipap this AM, on NC Episodes of visual hallucinations noted Nursing, interdisciplinary and consult notes were reviewed Vitals, input and output, medications and labs were reviewed Objective - Exam Narrative Exam: General: Morbid obesity, on NC, mild discomfort HEENT: Oral mucosa moist Neck: Supple, no JVD Chest: labored breathing on NC Heart: RRR, S1 and S2 Abdomen: Soft, nontender Extremity: No peripheral cyanosis, edema Neurological: Awake and alert Dermatology: skin intact Psych: Calm and cooperative Musculoskeletal: No joint effusion - Vital Signs Vital signs: Vital Signs - 12hr 04/23/21 04/23/21 04/24/21 22:00 23:56 04:39 Temperature 99.9 F H 100.1 F H Pulse Rate 117 H 110 H Pulse Rate [ Anterior Bilateral Throughout] Respiratory 28 H 20 Rate Respiratory Rate [Anterior Bilateral Throughout] Blood Pressure 94/52 106/51 O2 Sat by Pulse 97 97 93 Oximetry 04/24/21 09:31 Temperature Pulse Rate Pulse Rate [ 84 Anterior Bilateral Throughout] Respiratory Rate Respiratory 20 Rate [Anterior Bilateral Throughout] Blood Pressure O2 Sat by Pulse 92 Oximetry - Lab 04/23/21 02:51 04/23/21 00:54 Most recent lab results ABG pH 7.382 (7.320-7.450) 04/18/21 14:19 ABG pCO2 86.9 mm Hg 04/13/21 18:40 ABG pO2 81.8 mm Hg (80.0-90.0) 04/13/21 18:40 ABG HCO3 36.2 mmol/L (20.0-26.0) H 04/13/21 18:40 ABG O2 Saturation 99.4 (0-100) 04/18/21 14:19 Calcium 9.4 mg/dL (8.4-10.2) 04/23/21 00:54 Magnesium 2.10 mg/dL (1.7-2.3) 04/23/21 00:54 Urine Sodium 16 mmol/L 04/09/21 18:46 Medications & Allergies - Medications Allergies/Adverse Reactions: Allergies No Known Allergies Allergy (Unverified 01/27/17 11:17) Home Medications: Home Medications Medication Instructions Recorded Confirmed Last Taken Type Acetaminophen [Acetaminophen TAB] 325 mg PO Q4H PRN #30 tablet 06/30/17 08/08/20 Unknown Rx ALBUTEROL NEB's [Proventil 0.083% 2.5 mg IH Q3HRT PRN #30 day 08/10/20 Unknown Rx NEBS] Albuterol Mdi (or & Nicu Only) 2 puff IH QID PRN #1 inhalation 08/10/20 Unknown Rx [ProAir HFA Inhaler] Azithromycin [Zithromax Z-BIN] 0 mg PO DAILY #1 tab 08/10/20 Unknown Rx Benzonatate [Tessalon Perles] 100 mg PO Q8HR #15 capsule 08/10/20 Unknown Rx Famotidine [Pepcid] 20 mg PO BID #14 tablet 08/10/20 Unknown Rx Ipratropium/Albuterol Sulfate 1 ampul IH TIDRT #30 day 08/10/20 Unknown Rx [DUONEB *Not for PRN Use*] hydroCHLOROthiazide [HCTZ] 25 mg PO QDAY tablet 08/10/20 Unknown Rx hydroCHLOROthiazide [HCTZ] 25 mg PO QDAY #30 tablet 08/10/20 Unknown Rx methylPREDNISolone [Medrol 4MG 4 mg PO DAILY #1 tab.ds.pk 08/10/20 Unknown Rx DOSEPAK (21 tabs)] Active Medications: Generic Name Dose Route Start Last Admin Trade Name Freq PRN Reason Stop Dose Admin Acetaminophen 650 mg 04/08/21 03:00 04/17/21 06:42 Acetaminophen 325 Mg Tab PO 650 mg Q4H PRN Administration Pain MILD(1-3)/Fever >100.5/BROWN Albuterol 2.5 mg 04/08/21 03:00 Albuterol 2.5 Mg/3 Ml Nebu IH Q4HRT PRN Shortness Of Breath Albuterol/Ipratropium 1 ampul 04/08/21 08:00 04/24/21 09:27 Ipratropium/Albuterol Sulfate 3 Ml Ampul.Neb IH 1 ampul TIDRT EKATERINA Administration Aspirin 325 mg 04/09/21 10:00 04/23/21 11:00 Aspirin Ec 325 Mg Tab PO 325 mg QDAY EKATERINA Administration Atorvastatin Calcium 40 mg 04/08/21 22:00 04/23/21 23:01 Atorvastatin 40 Mg Tab PO Not Given QHS EKATERINA Benzonatate 100 mg 04/08/21 06:00 04/24/21 06:07 Benzonatate 100 Mg Cap PO 100 mg Q8HR EKATERINA Administration Guaifenesin 200 mg 04/12/21 14:47 04/17/21 06:43 Guaifenesin 100 Mg/5 Ml Oral Liqd PO 200 mg Q4H PRN Administration Cough Haloperidol Lactate 5 mg 04/18/21 16:27 04/21/21 03:30 Haloperidol Lactate 5 Mg/1 Ml Inj IV 5 mg Q6H PRN Administration Agitation Heparin Sodium (Porcine) 5,000 unit 04/18/21 14:00 04/24/21 06:07 Heparin 5,000 Unit/1 Ml Vial SUB-Q 5,000 unit Q8HR EKATERINA Administration Hydralazine HCl 10 mg 04/19/21 17:25 04/22/21 08:54 Hydralazine 20 Mg/1 Ml Inj IV 10 mg Q6H PRN Administration Blood Pressure Dextrose 1,000 mls @ 75 mls/hr 04/23/21 12:00 04/23/21 23:18 D5w IV 75 mls/hr DIRECT EKATERINA Administration Levothyroxine Sodium 100 mcg 04/22/21 06:00 04/24/21 06:07 Levothyroxine 100 Mcg Tab PO 100 mcg DAILY@0600 EKATERINA Administration Methylprednisolone Sodium Succinate 20 mg 04/16/21 10:00 04/23/21 23:07 Methylprednisolone Sod Succinate 40 Mg/1 Ml Inj IV 20 mg Q12HR EKATERINA Administration Nitroglycerin 0.4 mg 04/08/21 03:00 Nitroglycerin 0.4 Mg Tab Subl SL Q5M PRN Chest Pain Nystatin 1 applic 04/08/21 18:00 04/24/21 06:23 Nystatin Powder 15 Gm TP Not Given BID EKATERINA Ondansetron HCl 4 mg 04/08/21 03:00 04/15/21 23:51 Ondansetron 4 Mg/2 Ml Inj IV 4 mg Q8H PRN Administration Nausea And Vomiting Oxycodone/Acetaminophen 1 tab 04/08/21 03:00 04/21/21 16:26 Oxycodone /Acetaminophen 5-325mg Tab PO 1 tab Q6H PRN Administration Pain, Moderate (4-6) Pantoprazole Sodium 40 mg 04/23/21 07:30 04/23/21 08:00 Pantoprazole 40 Mg Tab PO 40 mg QDAC EKATERINA Administration Quetiapine Fumarate 75 mg 04/18/21 22:00 04/23/21 23:01 Quetiapine 25 Mg Tab PO Not Given QHS EKATERINA Sodium Chloride 10 ml 04/08/21 10:00 04/23/21 23:07 Sodium Chloride 0.9% 10 Ml Flush Syringe IV 10 ml BID EKATERINA Administration Sodium Chloride 10 ml 04/08/21 03:00 Sodium Chloride 0.9% 10 Ml Flush Syringe IV PRN PRN LINE FLUSH Tramadol HCl 50 mg 04/08/21 03:00 04/20/21 21:50 Tramadol 50 Mg Tab PO 50 mg Q6H PRN Administration Pain, Moderate (4-6)
--- NOTE | 2021-04-24 12:22 | Progress Note ---
Subjective - Reason for Consult Consult date: 04/24/21 Reason for consult: hallucinations - Chief Complaint Chief complaint: The patient was seen today. She appears drowsy. She shrugs her shoulders when I ask her questions but she doesn't speak. I ask her if she can speak and she nods "yes." She then drifts back off. I called her name several times but she constantly drifted and only shrug her shoulders to questioning. REVIEW OF SYSTEMS: Unable to assess MENTAL STATUS EXAMINATION: Unable to assess Assessment (1) encounter for screening examination for mental health and behavioral disorder- Z13.30 Current Visit: Yes Status: Acute Treatment Plan Agree with prescribed meds The patient to comply with previously prescribed medications Risks, benefits and alternatives of medications discussed with the patient, questions answered and consent obtained from patient. PSYCHOTHERAPY: Supportive psychotherapy provided MEDICAL: Per primary team DELIRIUM PRECAUTIONS: Please re-orient patient frequently, keep lights on during the day, and minimize benzodiazepines and opiates as these medications could worsen patient's confusion. MATHEMATICS ACADEMIC CHAIR: Defer to primary DISPOSITION: Do not recommend acute inpatient psychiatric hospitalization at this time. FOLLOW-UP: Will follow for psych progress Post hospital care: primary care provider, psychiatric provider Case staffed with Dr. Dunn Mental Status Exam - Vital signs Last Vital Signs Temp 98.1 F 04/24/21 11:15 Pulse 112 H 04/24/21 11:15 Resp 22 04/24/21 11:15 BP 101/50 04/24/21 11:15 Pulse Ox 94 04/24/21 11:15
[2021-04-24] MEDS: PANTOPRAZOLE 40 MG TAB PO SCH (14:00)
[2021-04-24] MEDS: ASPIRIN EC 325 MG TAB PO SCH (14:00)
--- NOTE | 2021-04-24 14:10 | Progress Note ---
Assessment and Plan Acute hypoxemic and hypercapnic respiratory failure Acute exacerbation of CHF (congestive heart failure) Hypertension Morbid obesity with BMI of 70 and over, adult Obesity hypoventilation syndrome Sleep apnea - continue NIV qhs with prn daytime use - continue avoid opiates / sedating drugs - continue care as below otherwise; - continue diuresis while following electrolytes - continue to wean supplemental oxygen for target O2 sat's > 90% acutely - aspiration precautions - continue bronchodilators with pulmonary hygiene per RT - continue accuchecks with glycemic control per SSI (While critically ill target blood glucose of 140-180 mg/dL; avoid hypoglycemia) - avoid nephrotoxins, renally dose all medications - AB's per ID rec's - prn analgesia per pain score - Maintenance of sleep-wake cycle, avoid delirium - G.I. & VTE prophylaxis - PT/OT/ROM exercises - continue mobility protocols for pressure ulcer prophylaxis - Monitor hemodynamics closely - continue other care per attending / other consultants - discharge planning ongoing concurrently COVID SPECIFIC INTERVENTIONS - COVID-19 assay negative .... Re-evaluate in am & prn Subjective Date of service: 04/24/21 Principal diagnosis: Ac hypoxemic and hypercapnic resp failure; AE-CHF; Morbid obesity; CLAUDIA/OHS Interval history: Patient is seen today for: Acute hypoxemic and hypercapnic respiratory failure; Acute exacerbation of CHF; Hypertension; Morbid obesity; CLAUDIA / OHS Seen and examined at bedside; 24hour events reviewed; nursing and respiratory care staff consulted; no adverse overnight events reported to me; resting in bed; Objective Vital Signs - 12hr 04/24/21 04/24/21 04/24/21 04:39 09:31 11:15 Temperature 100.1 F H 98.1 F Pulse Rate 110 H 112 H Pulse Rate [ 84 Anterior Bilateral Throughout] Respiratory 20 22 Rate Respiratory 20 Rate [Anterior Bilateral Throughout] Blood Pressure 106/51 Blood Pressure 101/50 [Right] O2 Sat by Pulse 93 92 94 Oximetry 04/24/21 04/24/21 14:02 14:03 Temperature Pulse Rate Pulse Rate [ 58 L Anterior Bilateral Throughout] Respiratory Rate Respiratory 20 Rate [Anterior Bilateral Throughout] Blood Pressure Blood Pressure [Right] O2 Sat by Pulse 94 Oximetry Constitutional: no acute distress, asleep, other (young extremely obese female with mildly increased respiratory effort at rest) Eyes: non-icteric ENT: oropharynx moist, other (BIPAP FFM) Neck: supple, no lymphadenopathy, no JVD Effort: mildly labored Ascultation: Bilateral: diminished breath sounds, rhonchi (scant) Percussion: Bilateral: not dull Cardiovascular: regular rate and rhythm Gastrointestinal: normoactive bowel sounds, soft, non-tender, non-distended (protuberant) Integumentary: rash (stasis dermatitis type), other (Stasis dermatititis on legs and abdomen; see [facility] notes for full details) Extremities: pulses normal, no ischemia or petechiae, edema, other (stasis dermatitis) Neurologic: non-focal exam (grossly), pupils equal and round, CN II-XII normal Psychiatric: depressed CBC and BMP: 04/23/21 02:51 04/23/21 00:54 ABG, PT/INR, D-dimer: ABG ABG pH 7.382 (7.320-7.450) 04/18/21 14:19 POC ABG pCO2 67.4 mmHg (32.0-48.0) H 04/18/21 14:19 ABG pCO2 86.9 mm Hg 04/13/21 18:40 POC ABG pO2 150.6 mmHg (83-108) H 04/18/21 14:19 ABG pO2 81.8 mm Hg (80.0-90.0) 04/13/21 18:40 POC ABG HCO3 39.2 04/18/21 14:19 ABG O2 Saturation 99.4 (0-100) 04/18/21 14:19 PT/INR, D-dimer PT 18.7 Sec. (12.2-14.9) H 04/18/21 16:55 INR 1.51 (0.87-1.13) H 04/18/21 16:55 D-Dimer 5410.10 ng/mlDDU (0-234) H 04/17/21 16:03 Abnormal lab findings: Abnormal Labs 04/07/21 04/07/21 04/08/21 22:04 22:04 00:18 WBC 17.7 H Hgb 9.1 L Hct MCV 77 L MCH 21 L MCHC 27 L RDW 24.3 H Plt Count Seg Neuts % (Manual) Lymphocytes % (Manual) Nucleated RBC % Seg Neutrophils # Man Lymphocytes # (Manual) Monocytes # (Manual) PT INR D-Dimer ABG pH POC ABG pCO2 POC ABG pO2 ABG pO2 ABG HCO3 ABG Base Excess ABG Hemoglobin ABG Oxyhemoglobin ABG Sodium ABG Chloride ABG Glucose Oxyhemoglobin Carboxyhemoglobin Sodium 135 L Potassium Chloride 91.0 L Carbon Dioxide 17 L BUN Creatinine 1.4 H Glucose 55 L POC Glucose 49 L Calcium Ionized Calcium Total Bilirubin Direct Bilirubin AST ALT Total Creatine Kinase Troponin T 0.043 H NT-Pro-B Natriuret Pep 7573 H Total Protein Albumin LDL Cholesterol Direct 47 L HDL Cholesterol 25 L TSH Free T4 Arterial Blood Glucose 04/08/21 04/08/21 04/08/21 04:03 04:03 09:22 WBC 24.3 H Hgb 9.3 L Hct MCV 74 L MCH 21 L MCHC 29 L RDW 23.1 H Plt Count Seg Neuts % (Manual) 78.0 H Lymphocytes % (Manual) 7.0 L Nucleated RBC % 1.0 H Seg Neutrophils # Man 19.0 H Lymphocytes # (Manual) Monocytes # (Manual) 1.0 H PT INR D-Dimer ABG pH POC ABG pCO2 POC ABG pO2 ABG pO2 ABG HCO3 ABG Base Excess ABG Hemoglobin ABG Oxyhemoglobin ABG Sodium ABG Chloride ABG Glucose Oxyhemoglobin Carboxyhemoglobin Sodium 134 L Potassium Chloride 91.2 L Carbon Dioxide BUN Creatinine 1.8 H Glucose POC Glucose Calcium Ionized Calcium Total Bilirubin Direct Bilirubin AST ALT Total Creatine Kinase Troponin T 0.099 H NT-Pro-B Natriuret Pep Total Protein Albumin LDL Cholesterol Direct HDL Cholesterol TSH Free T4 Arterial Blood Glucose 04/08/21 04/08/21 04/09/21 13:03 20:28 04:52 WBC 20.9 H Hgb 8.5 L Hct 30.0 L MCV 73 L MCH 21 L MCHC 28 L RDW 23.9 H Plt Count Seg Neuts % (Manual) 77.0 H Lymphocytes % (Manual) 1.0 L Nucleated RBC % 1.0 H Seg Neutrophils # Man 16.1 H Lymphocytes # (Manual) 0.2 L Monocytes # (Manual) PT INR D-Dimer ABG pH POC ABG pCO2 POC ABG pO2 ABG pO2 ABG HCO3 ABG Base Excess ABG Hemoglobin ABG Oxyhemoglobin ABG Sodium ABG Chloride ABG Glucose Oxyhemoglobin Carboxyhemoglobin Sodium Potassium Chloride Carbon Dioxide BUN Creatinine Glucose POC Glucose 115 H Calcium Ionized Calcium Total Bilirubin Direct Bilirubin AST ALT Total Creatine Kinase Troponin T 0.078 H D NT-Pro-B Natriuret Pep Total Protein Albumin LDL Cholesterol Direct HDL Cholesterol TSH Free T4 Arterial Blood Glucose 04/09/21 04/09/21 04/09/21 04:52 08:46 11:50 WBC Hgb Hct MCV MCH MCHC RDW Plt Count Seg Neuts % (Manual) Lymphocytes % (Manual) Nucleated RBC % Seg Neutrophils # Man Lymphocytes # (Manual) Monocytes # (Manual) PT INR D-Dimer ABG pH POC ABG pCO2 POC ABG pO2 ABG pO2 ABG HCO3 ABG Base Excess ABG Hemoglobin ABG Oxyhemoglobin ABG Sodium ABG Chloride ABG Glucose Oxyhemoglobin Carboxyhemoglobin Sodium 129 L Potassium 5.6 H Chloride 88.6 L Carbon Dioxide BUN 27 H Creatinine 2.4 H Glucose 121 H POC Glucose 139 H 156 H Calcium 7.7 L Ionized Calcium Total Bilirubin Direct Bilirubin AST ALT Total Creatine Kinase Troponin T NT-Pro-B Natriuret Pep Total Protein Albumin LDL Cholesterol Direct HDL Cholesterol TSH Free T4 Arterial Blood Glucose 04/09/21 04/09/21 04/09/21 15:46 16:58 22:08 WBC Hgb Hct MCV MCH MCHC RDW Plt Count Seg Neuts % (Manual) Lymphocytes % (Manual) Nucleated RBC % Seg Neutrophils # Man Lymphocytes # (Manual) Monocytes # (Manual) PT INR D-Dimer ABG pH POC ABG pCO2 POC ABG pO2 ABG pO2 ABG HCO3 ABG Base Excess ABG Hemoglobin ABG Oxyhemoglobin ABG Sodium ABG Chloride ABG Glucose Oxyhemoglobin Carboxyhemoglobin Sodium 128 L Potassium 5.5 H Chloride 88.1 L Carbon Dioxide BUN 33 H Creatinine 2.7 H Glucose 172 H POC Glucose 187 H 186 H Calcium 7.3 L Ionized Calcium Total Bilirubin Direct Bilirubin AST ALT Total Creatine Kinase Troponin T NT-Pro-B Natriuret Pep Total Protein Albumin LDL Cholesterol Direct HDL Cholesterol TSH Free T4 Arterial Blood Glucose 04/09/21 04/10/21 04/10/21 23:15 02:20 07:39 WBC Hgb Hct MCV MCH MCHC RDW Plt Count Seg Neuts % (Manual) Lymphocytes % (Manual) Nucleated RBC % Seg Neutrophils # Man Lymphocytes # (Manual) Monocytes # (Manual) PT INR D-Dimer ABG pH POC ABG pCO2 POC ABG pO2 ABG pO2 ABG HCO3 ABG Base Excess ABG Hemoglobin ABG Oxyhemoglobin ABG Sodium ABG Chloride ABG Glucose Oxyhemoglobin Carboxyhemoglobin Sodium 128 L Potassium 5.2 H Chloride 88.6 L Carbon Dioxide BUN 39 H Creatinine 3.1 H Glucose 171 H POC Glucose 168 H Calcium 7.2 L Ionized Calcium 3.6 L Total Bilirubin Direct Bilirubin AST ALT Total Creatine Kinase Troponin T NT-Pro-B Natriuret Pep Total Protein Albumin LDL Cholesterol Direct HDL Cholesterol TSH Free T4 Arterial Blood Glucose 04/10/21 04/10/21 04/10/21 10:04 11:37 17:18 WBC Hgb Hct MCV MCH MCHC RDW Plt Count Seg Neuts % (Manual) Lymphocytes % (Manual) Nucleated RBC % Seg Neutrophils # Man Lymphocytes # (Manual) Monocytes # (Manual) PT INR D-Dimer ABG pH POC ABG pCO2 POC ABG pO2 ABG pO2 ABG HCO3 ABG Base Excess ABG Hemoglobin ABG Oxyhemoglobin ABG Sodium ABG Chloride ABG Glucose Oxyhemoglobin Carboxyhemoglobin Sodium Potassium Chloride Carbon Dioxide BUN Creatinine Glucose POC Glucose 170 H 152 H Calcium Ionized Calcium Total Bilirubin Direct Bilirubin AST ALT Total Creatine Kinase 1712 H Troponin T NT-Pro-B Natriuret Pep Total Protein Albumin LDL Cholesterol Direct HDL Cholesterol TSH Free T4 Arterial Blood Glucose 04/10/21 04/10/21 04/11/21 19:38 22:02 05:48 WBC Hgb Hct MCV MCH MCHC RDW Plt Count Seg Neuts % (Manual) Lymphocytes % (Manual) Nucleated RBC % Seg Neutrophils # Man Lymphocytes # (Manual) Monocytes # (Manual) PT INR D-Dimer ABG pH POC ABG pCO2 POC ABG pO2 ABG pO2 ABG HCO3 ABG Base Excess ABG Hemoglobin ABG Oxyhemoglobin ABG Sodium ABG Chloride ABG Glucose Oxyhemoglobin Carboxyhemoglobin Sodium 128 L 124 L Potassium 5.8 H D Chloride 89.6 L 89.4 L Carbon Dioxide BUN 47 H 53 H Creatinine 3.0 H 2.8 H Glucose 165 H 150 H POC Glucose 147 H Calcium 6.9 L 7.2 L Ionized Calcium Total Bilirubin Direct Bilirubin AST ALT Total Creatine Kinase Troponin T NT-Pro-B Natriuret Pep Total Protein Albumin LDL Cholesterol Direct HDL Cholesterol TSH Free T4 Arterial Blood Glucose 04/11/21 04/11/21 04/11/21 08:48 11:35 19:12 WBC Hgb Hct MCV MCH MCHC RDW Plt Count Seg Neuts % (Manual) Lymphocytes % (Manual) Nucleated RBC % Seg Neutrophils # Man Lymphocytes # (Manual) Monocytes # (Manual) PT INR D-Dimer ABG pH POC ABG pCO2 POC ABG pO2 ABG pO2 ABG HCO3 ABG Base Excess ABG Hemoglobin ABG Oxyhemoglobin ABG Sodium ABG Chloride ABG Glucose Oxyhemoglobin Carboxyhemoglobin Sodium 128 L Potassium Chloride 89.7 L Carbon Dioxide BUN 53 H Creatinine 2.4 H Glucose 159 H POC Glucose 152 H 152 H Calcium 7.1 L Ionized Calcium Total Bilirubin Direct Bilirubin AST ALT Total Creatine Kinase Troponin T NT-Pro-B Natriuret Pep Total Protein Albumin LDL Cholesterol Direct HDL Cholesterol TSH Free T4 Arterial Blood Glucose 04/11/21 04/12/21 04/12/21 22:03 05:03 07:41 WBC Hgb Hct MCV MCH MCHC RDW Plt Count Seg Neuts % (Manual) Lymphocytes % (Manual) Nucleated RBC % Seg Neutrophils # Man Lymphocytes # (Manual) Monocytes # (Manual) PT INR D-Dimer ABG pH POC ABG pCO2 POC ABG pO2 ABG pO2 ABG HCO3 ABG Base Excess ABG Hemoglobin ABG Oxyhemoglobin ABG Sodium ABG Chloride ABG Glucose Oxyhemoglobin Carboxyhemoglobin Sodium 134 L Potassium Chloride 92.9 L Carbon Dioxide 33 H D BUN 54 H Creatinine 2.4 H Glucose 150 H POC Glucose 152 H 144 H Calcium 7.2 L Ionized Calcium Total Bilirubin Direct Bilirubin AST ALT Total Creatine Kinase Troponin T NT-Pro-B Natriuret Pep Total Protein Albumin LDL Cholesterol Direct HDL Cholesterol TSH Free T4 Arterial Blood Glucose 04/12/21 04/12/21 04/12/21 11:38 14:11 17:02 WBC 14.7 H Hgb 8.7 L Hct 29.8 L MCV 74 L MCH 22 L MCHC 29 L RDW 24.9 H Plt Count Seg Neuts % (Manual) 86.0 H Lymphocytes % (Manual) 6.0 L Nucleated RBC % Seg Neutrophils # Man 12.6 H Lymphocytes # (Manual) 0.9 L Monocytes # (Manual) PT INR D-Dimer ABG pH POC ABG pCO2 POC ABG pO2 ABG pO2 ABG HCO3 ABG Base Excess ABG Hemoglobin ABG Oxyhemoglobin ABG Sodium ABG Chloride ABG Glucose Oxyhemoglobin Carboxyhemoglobin Sodium Potassium Chloride Carbon Dioxide BUN Creatinine Glucose POC Glucose 151 H 154 H Calcium Ionized Calcium Total Bilirubin Direct Bilirubin AST ALT Total Creatine Kinase Troponin T NT-Pro-B Natriuret Pep Total Protein Albumin LDL Cholesterol Direct HDL Cholesterol TSH Free T4 Arterial Blood Glucose 04/12/21 04/13/21 04/13/21 23:14 05:03 10:00 WBC Hgb Hct MCV MCH MCHC RDW Plt Count Seg Neuts % (Manual) Lymphocytes % (Manual) Nucleated RBC % Seg Neutrophils # Man Lymphocytes # (Manual) Monocytes # (Manual) PT INR D-Dimer ABG pH 7.150 L* POC ABG pCO2 POC ABG pO2 ABG pO2 91.8 H ABG HCO3 37.2 H ABG Base Excess 7.1 H ABG Hemoglobin 7.1 L ABG Oxyhemoglobin ABG Sodium ABG Chloride ABG Glucose Oxyhemoglobin 93.4 L Carboxyhemoglobin Sodium 134 L Potassium Chloride 91.3 L Carbon Dioxide 33 H BUN 63 H Creatinine 2.2 H Glucose 159 H POC Glucose 151 H Calcium 7.8 L Ionized Calcium Total Bilirubin Direct Bilirubin AST ALT Total Creatine Kinase Troponin T NT-Pro-B Natriuret Pep Total Protein Albumin LDL Cholesterol Direct HDL Cholesterol TSH Free T4 Arterial Blood Glucose 04/13/21 04/13/21 04/13/21 12:39 16:37 18:40 WBC Hgb Hct MCV MCH MCHC RDW Plt Count Seg Neuts % (Manual) Lymphocytes % (Manual) Nucleated RBC % Seg Neutrophils # Man Lymphocytes # (Manual) Monocytes # (Manual) PT INR D-Dimer ABG pH 7.237 L POC ABG pCO2 POC ABG pO2 ABG pO2 ABG HCO3 36.2 H ABG Base Excess 7.4 H ABG Hemoglobin 7.8 L ABG Oxyhemoglobin ABG Sodium ABG Chloride ABG Glucose Oxyhemoglobin 93.7 L Carboxyhemoglobin Sodium Potassium Chloride Carbon Dioxide BUN Creatinine Glucose POC Glucose 140 H 132 H Calcium Ionized Calcium Total Bilirubin Direct Bilirubin AST ALT Total Creatine Kinase Troponin T NT-Pro-B Natriuret Pep Total Protein Albumin LDL Cholesterol Direct HDL Cholesterol TSH Free T4 Arterial Blood Glucose 04/13/21 04/14/21 04/14/21 23:55 04:27 04:27 WBC Hgb 8.5 L Hct 29.1 L MCV 72 L MCH 21 L MCHC 29 L RDW 24.9 H Plt Count Seg Neuts % (Manual) Lymphocytes % (Manual) Nucleated RBC % Seg Neutrophils # Man Lymphocytes # (Manual) Monocytes # (Manual) PT INR D-Dimer ABG pH POC ABG pCO2 POC ABG pO2 ABG pO2 ABG HCO3 ABG Base Excess ABG Hemoglobin ABG Oxyhemoglobin ABG Sodium ABG Chloride ABG Glucose Oxyhemoglobin Carboxyhemoglobin Sodium 135 L Potassium Chloride 93.5 L Carbon Dioxide 33 H BUN 68 H Creatinine 1.9 H Glucose 143 H POC Glucose 135 H Calcium 8.1 L Ionized Calcium Total Bilirubin 1.50 H Direct Bilirubin AST 494 H ALT 835 H Total Creatine Kinase Troponin T NT-Pro-B Natriuret Pep Total Protein 9.5 H Albumin 3.1 L LDL Cholesterol Direct HDL Cholesterol TSH Free T4 Arterial Blood Glucose 04/14/21 04/14/21 04/15/21 12:03 17:24 00:19 WBC Hgb Hct MCV MCH MCHC RDW Plt Count Seg Neuts % (Manual) Lymphocytes % (Manual) Nucleated RBC % Seg Neutrophils # Man Lymphocytes # (Manual) Monocytes # (Manual) PT INR D-Dimer ABG pH 7.291 L POC ABG pCO2 75.5 H POC ABG pO2 76.2 L ABG pO2 ABG HCO3 ABG Base Excess ABG Hemoglobin 9.9 L ABG Oxyhemoglobin 91.0 L ABG Sodium 134.9 L ABG Chloride 93.0 L ABG Glucose 146 H Oxyhemoglobin Carboxyhemoglobin 2.2 H Sodium Potassium Chloride Carbon Dioxide BUN Creatinine Glucose POC Glucose 134 H 136 H Calcium Ionized Calcium Total Bilirubin Direct Bilirubin AST ALT Total Creatine Kinase Troponin T NT-Pro-B Natriuret Pep Total Protein Albumin LDL Cholesterol Direct HDL Cholesterol TSH Free T4 Arterial Blood Glucose 146 H 04/15/21 04/15/21 04/15/21 04:55 04:55 05:29 WBC Hgb 8.0 L Hct 27.1 L MCV 70 L MCH 21 L MCHC RDW 24.3 H Plt Count Seg Neuts % (Manual) Lymphocytes % (Manual) Nucleated RBC % Seg Neutrophils # Man Lymphocytes # (Manual) Monocytes # (Manual) PT INR D-Dimer ABG pH POC ABG pCO2 POC ABG pO2 ABG pO2 ABG HCO3 ABG Base Excess ABG Hemoglobin ABG Oxyhemoglobin ABG Sodium ABG Chloride ABG Glucose Oxyhemoglobin Carboxyhemoglobin Sodium Potassium Chloride 95.1 L Carbon Dioxide 36 H BUN 63 H Creatinine 1.5 H Glucose 131 H POC Glucose 118 H Calcium 8.3 L Ionized Calcium Total Bilirubin 1.80 H Direct Bilirubin AST 323 H ALT 609 H Total Creatine Kinase Troponin T NT-Pro-B Natriuret Pep Total Protein 9.3 H Albumin 2.9 L LDL Cholesterol Direct HDL Cholesterol TSH Free T4 Arterial Blood Glucose 04/15/21 04/15/21 04/15/21 11:40 18:30 22:44 WBC Hgb Hct MCV MCH MCHC RDW Plt Count Seg Neuts % (Manual) Lymphocytes % (Manual) Nucleated RBC % Seg Neutrophils # Man Lymphocytes # (Manual) Monocytes # (Manual) PT INR D-Dimer ABG pH POC ABG pCO2 POC ABG pO2 ABG pO2 ABG HCO3 ABG Base Excess ABG Hemoglobin ABG Oxyhemoglobin ABG Sodium ABG Chloride ABG Glucose Oxyhemoglobin Carboxyhemoglobin Sodium Potassium Chloride Carbon Dioxide BUN Creatinine Glucose POC Glucose 139 H 130 H 123 H Calcium Ionized Calcium Total Bilirubin Direct Bilirubin AST ALT Total Creatine Kinase Troponin T NT-Pro-B Natriuret Pep Total Protein Albumin LDL Cholesterol Direct HDL Cholesterol TSH Free T4 Arterial Blood Glucose 04/16/21 04/16/21 04/16/21 04:53 04:53 07:16 WBC 12.5 H Hgb 8.8 L Hct 30.2 L MCV 74 L MCH 21 L MCHC 29 L RDW 24.5 H Plt Count Seg Neuts % (Manual) Lymphocytes % (Manual) Nucleated RBC % Seg Neutrophils # Man Lymphocytes # (Manual) Monocytes # (Manual) PT INR D-Dimer ABG pH POC ABG pCO2 POC ABG pO2 ABG pO2 ABG HCO3 ABG Base Excess ABG Hemoglobin ABG Oxyhemoglobin ABG Sodium ABG Chloride ABG Glucose Oxyhemoglobin Carboxyhemoglobin Sodium Potassium Chloride 96.9 L Carbon Dioxide 35 H BUN 65 H Creatinine 1.5 H Glucose 142 H POC Glucose 138 H Calcium Ionized Calcium Total Bilirubin 1.50 H Direct Bilirubin AST 251 H ALT 572 H Total Creatine Kinase Troponin T NT-Pro-B Natriuret Pep Total Protein 10.1 H Albumin 3.2 L LDL Cholesterol Direct HDL Cholesterol TSH Free T4 Arterial Blood Glucose 04/16/21 04/16/21 04/16/21 07:32 11:29 14:42 WBC Hgb Hct MCV MCH MCHC RDW Plt Count Seg Neuts % (Manual) Lymphocytes % (Manual) Nucleated RBC % Seg Neutrophils # Man Lymphocytes # (Manual) Monocytes # (Manual) PT INR D-Dimer ABG pH 7.086 L 7.188 L POC ABG pCO2 142.2 H 99.3 H POC ABG pO2 196.3 H 132.3 H ABG pO2 ABG HCO3 ABG Base Excess ABG Hemoglobin 10.0 L 9.2 L ABG Oxyhemoglobin ABG Sodium ABG Chloride 96.0 L 96.0 L ABG Glucose 147 H 146 H Oxyhemoglobin Carboxyhemoglobin 1.6 H 2.0 H Sodium Potassium Chloride Carbon Dioxide BUN Creatinine Glucose POC Glucose 131 H Calcium Ionized Calcium Total Bilirubin Direct Bilirubin AST ALT Total Creatine Kinase Troponin T NT-Pro-B Natriuret Pep Total Protein Albumin LDL Cholesterol Direct HDL Cholesterol TSH Free T4 Arterial Blood Glucose 147 H 146 H 04/16/21 04/16/21 04/17/21 17:23 22:34 07:44 WBC Hgb Hct MCV MCH MCHC RDW Plt Count Seg Neuts % (Manual) Lymphocytes % (Manual) Nucleated RBC % Seg Neutrophils # Man Lymphocytes # (Manual) Monocytes # (Manual) PT INR D-Dimer ABG pH POC ABG pCO2 POC ABG pO2 ABG pO2 ABG HCO3 ABG Base Excess ABG Hemoglobin ABG Oxyhemoglobin ABG Sodium ABG Chloride ABG Glucose Oxyhemoglobin Carboxyhemoglobin Sodium Potassium Chloride Carbon Dioxide BUN Creatinine Glucose POC Glucose 117 H 169 H 150 H Calcium Ionized Calcium Total Bilirubin Direct Bilirubin AST ALT Total Creatine Kinase Troponin T NT-Pro-B Natriuret Pep Total Protein Albumin LDL Cholesterol Direct HDL Cholesterol TSH Free T4 Arterial Blood Glucose 04/17/21 04/17/21 04/17/21 08:55 08:55 09:47 WBC Hgb 8.7 L Hct 29.4 L MCV 74 L MCH 22 L MCHC RDW 24.8 H Plt Count Seg Neuts % (Manual) Lymphocytes % (Manual) Nucleated RBC % Seg Neutrophils # Man Lymphocytes # (Manual) Monocytes # (Manual) PT INR D-Dimer ABG pH 7.234 L POC ABG pCO2 90.5 H POC ABG pO2 139.4 H ABG pO2 ABG HCO3 ABG Base Excess ABG Hemoglobin 9.5 L ABG Oxyhemoglobin ABG Sodium ABG Chloride 97.0 L ABG Glucose 179 H Oxyhemoglobin Carboxyhemoglobin 1.7 H Sodium Potassium Chloride 94.4 L Carbon Dioxide 37 H BUN 68 H Creatinine 1.5 H Glucose 178 H POC Glucose Calcium Ionized Calcium Total Bilirubin 1.60 H Direct Bilirubin AST 172 H ALT 437 H Total Creatine Kinase Troponin T NT-Pro-B Natriuret Pep Total Protein 10.1 H Albumin 3.2 L LDL Cholesterol Direct HDL Cholesterol TSH Free T4 Arterial Blood Glucose 179 H 04/17/21 04/17/21 04/17/21 11:39 16:03 17:24 WBC Hgb Hct MCV MCH MCHC RDW Plt Count Seg Neuts % (Manual) Lymphocytes % (Manual) Nucleated RBC % Seg Neutrophils # Man Lymphocytes # (Manual) Monocytes # (Manual) PT INR D-Dimer 5410.10 H ABG pH POC ABG pCO2 POC ABG pO2 ABG pO2 ABG HCO3 ABG Base Excess ABG Hemoglobin ABG Oxyhemoglobin ABG Sodium ABG Chloride ABG Glucose Oxyhemoglobin Carboxyhemoglobin Sodium Potassium Chloride Carbon Dioxide BUN Creatinine Glucose POC Glucose 161 H 130 H Calcium Ionized Calcium Total Bilirubin Direct Bilirubin AST ALT Total Creatine Kinase Troponin T NT-Pro-B Natriuret Pep Total Protein Albumin LDL Cholesterol Direct HDL Cholesterol TSH Free T4 Arterial Blood Glucose 04/17/21 04/18/21 04/18/21 21:52 10:20 11:58 WBC Hgb Hct MCV MCH MCHC RDW Plt Count Seg Neuts % (Manual) Lymphocytes % (Manual) Nucleated RBC % Seg Neutrophils # Man Lymphocytes # (Manual) Monocytes # (Manual) PT INR D-Dimer ABG pH POC ABG pCO2 POC ABG pO2 ABG pO2 ABG HCO3 ABG Base Excess ABG Hemoglobin ABG Oxyhemoglobin ABG Sodium ABG Chloride ABG Glucose Oxyhemoglobin Carboxyhemoglobin Sodium 146 H D Potassium Chloride Carbon Dioxide BUN 75 H Creatinine 1.6 H Glucose 158 H POC Glucose 150 H 143 H Calcium Ionized Calcium Total Bilirubin Direct Bilirubin AST ALT Total Creatine Kinase Troponin T NT-Pro-B Natriuret Pep Total Protein Albumin LDL Cholesterol Direct HDL Cholesterol TSH Free T4 Arterial Blood Glucose 04/18/21 04/18/21 04/18/21 14:19 16:55 16:55 WBC Hgb 8.3 L Hct 27.7 L MCV MCH MCHC RDW Plt Count Seg Neuts % (Manual) Lymphocytes % (Manual) Nucleated RBC % Seg Neutrophils # Man Lymphocytes # (Manual) Monocytes # (Manual) PT 18.7 H INR 1.51 H D-Dimer ABG pH POC ABG pCO2 67.4 H POC ABG pO2 150.6 H ABG pO2 ABG HCO3 ABG Base Excess ABG Hemoglobin 9.3 L ABG Oxyhemoglobin ABG Sodium ABG Chloride ABG Glucose 162 H Oxyhemoglobin Carboxyhemoglobin 1.6 H Sodium Potassium Chloride Carbon Dioxide BUN Creatinine Glucose POC Glucose Calcium Ionized Calcium Total Bilirubin Direct Bilirubin AST ALT Total Creatine Kinase Troponin T NT-Pro-B Natriuret Pep Total Protein Albumin LDL Cholesterol Direct HDL Cholesterol TSH Free T4 Arterial Blood Glucose 162 H 04/18/21 04/18/21 04/18/21 17:40 19:55 19:55 WBC Hgb Hct MCV MCH MCHC RDW Plt Count Seg Neuts % (Manual) Lymphocytes % (Manual) Nucleated RBC % Seg Neutrophils # Man Lymphocytes # (Manual) Monocytes # (Manual) PT INR D-Dimer ABG pH POC ABG pCO2 POC ABG pO2 ABG pO2 ABG HCO3 ABG Base Excess ABG Hemoglobin ABG Oxyhemoglobin ABG Sodium ABG Chloride ABG Glucose Oxyhemoglobin Carboxyhemoglobin Sodium Potassium Chloride Carbon Dioxide BUN Creatinine Glucose POC Glucose 151 H Calcium Ionized Calcium Total Bilirubin Direct Bilirubin AST ALT Total Creatine Kinase Troponin T NT-Pro-B Natriuret Pep Total Protein Albumin LDL Cholesterol Direct HDL Cholesterol TSH 6.140 H Free T4 0.67 L Arterial Blood Glucose 04/18/21 04/19/21 04/19/21 22:19 04:40 04:40 WBC Hgb 8.1 L Hct 27.5 L MCV 73 L MCH 22 L MCHC RDW 25.4 H Plt Count Seg Neuts % (Manual) Lymphocytes % (Manual) Nucleated RBC % Seg Neutrophils # Man Lymphocytes # (Manual) Monocytes # (Manual) PT INR D-Dimer ABG pH POC ABG pCO2 POC ABG pO2 ABG pO2 ABG HCO3 ABG Base Excess ABG Hemoglobin ABG Oxyhemoglobin ABG Sodium ABG Chloride ABG Glucose Oxyhemoglobin Carboxyhemoglobin Sodium Potassium Chloride Carbon Dioxide 37 H D BUN 76 H Creatinine 1.6 H Glucose 173 H POC Glucose 157 H Calcium Ionized Calcium Total Bilirubin Direct Bilirubin AST ALT Total Creatine Kinase Troponin T NT-Pro-B Natriuret Pep Total Protein Albumin LDL Cholesterol Direct HDL Cholesterol TSH Free T4 Arterial Blood Glucose 04/19/21 04/19/21 04/19/21 11:36 17:20 21:17 WBC Hgb Hct MCV MCH MCHC RDW Plt Count Seg Neuts % (Manual) Lymphocytes % (Manual) Nucleated RBC % Seg Neutrophils # Man Lymphocytes # (Manual) Monocytes # (Manual) PT INR D-Dimer ABG pH POC ABG pCO2 POC ABG pO2 ABG pO2 ABG HCO3 ABG Base Excess ABG Hemoglobin ABG Oxyhemoglobin ABG Sodium ABG Chloride ABG Glucose Oxyhemoglobin Carboxyhemoglobin Sodium Potassium Chloride Carbon Dioxide BUN Creatinine Glucose POC Glucose 168 H 174 H 163 H Calcium Ionized Calcium Total Bilirubin Direct Bilirubin AST ALT Total Creatine Kinase Troponin T NT-Pro-B Natriuret Pep Total Protein Albumin LDL Cholesterol Direct HDL Cholesterol TSH Free T4 Arterial Blood Glucose 04/20/21 04/20/21 04/20/21 04:22 11:27 17:12 WBC Hgb Hct MCV MCH MCHC RDW Plt Count Seg Neuts % (Manual) Lymphocytes % (Manual) Nucleated RBC % Seg Neutrophils # Man Lymphocytes # (Manual) Monocytes # (Manual) PT INR D-Dimer ABG pH POC ABG pCO2 POC ABG pO2 ABG pO2 ABG HCO3 ABG Base Excess ABG Hemoglobin ABG Oxyhemoglobin ABG Sodium ABG Chloride ABG Glucose Oxyhemoglobin Carboxyhemoglobin Sodium 147 H Potassium Chloride Carbon Dioxide 37 H BUN 74 H Creatinine 1.3 H Glucose 193 H POC Glucose 154 H 162 H Calcium Ionized Calcium Total Bilirubin Direct Bilirubin AST ALT Total Creatine Kinase Troponin T NT-Pro-B Natriuret Pep Total Protein Albumin LDL Cholesterol Direct HDL Cholesterol TSH Free T4 Arterial Blood Glucose 04/20/21 04/21/21 04/21/21 21:59 09:05 12:28 WBC Hgb Hct MCV MCH MCHC RDW Plt Count Seg Neuts % (Manual) Lymphocytes % (Manual) Nucleated RBC % Seg Neutrophils # Man Lymphocytes # (Manual) Monocytes # (Manual) PT INR D-Dimer ABG pH POC ABG pCO2 POC ABG pO2 ABG pO2 ABG HCO3 ABG Base Excess ABG Hemoglobin ABG Oxyhemoglobin ABG Sodium ABG Chloride ABG Glucose Oxyhemoglobin Carboxyhemoglobin Sodium Potassium Chloride Carbon Dioxide BUN Creatinine Glucose POC Glucose 160 H 168 H 174 H Calcium Ionized Calcium Total Bilirubin Direct Bilirubin AST ALT Total Creatine Kinase Troponin T NT-Pro-B Natriuret Pep Total Protein Albumin LDL Cholesterol Direct HDL Cholesterol TSH Free T4 Arterial Blood Glucose 04/21/21 04/21/21 04/22/21 17:27 21:42 08:15 WBC Hgb Hct MCV MCH MCHC RDW Plt Count Seg Neuts % (Manual) Lymphocytes % (Manual) Nucleated RBC % Seg Neutrophils # Man Lymphocytes # (Manual) Monocytes # (Manual) PT INR D-Dimer ABG pH POC ABG pCO2 POC ABG pO2 ABG pO2 ABG HCO3 ABG Base Excess ABG Hemoglobin ABG Oxyhemoglobin ABG Sodium ABG Chloride ABG Glucose Oxyhemoglobin Carboxyhemoglobin Sodium Potassium Chloride Carbon Dioxide BUN Creatinine Glucose POC Glucose 175 H 158 H 166 H Calcium Ionized Calcium Total Bilirubin Direct Bilirubin AST ALT Total Creatine Kinase Troponin T NT-Pro-B Natriuret Pep Total Protein Albumin LDL Cholesterol Direct HDL Cholesterol TSH Free T4 Arterial Blood Glucose 04/22/21 04/22/21 04/22/21 11:28 17:22 21:14 WBC Hgb Hct MCV MCH MCHC RDW Plt Count Seg Neuts % (Manual) Lymphocytes % (Manual) Nucleated RBC % Seg Neutrophils # Man Lymphocytes # (Manual) Monocytes # (Manual) PT INR D-Dimer ABG pH POC ABG pCO2 POC ABG pO2 ABG pO2 ABG HCO3 ABG Base Excess ABG Hemoglobin ABG Oxyhemoglobin ABG Sodium ABG Chloride ABG Glucose Oxyhemoglobin Carboxyhemoglobin Sodium Potassium Chloride Carbon Dioxide BUN Creatinine Glucose POC Glucose 198 H 194 H 176 H Calcium Ionized Calcium Total Bilirubin Direct Bilirubin AST ALT Total Creatine Kinase Troponin T NT-Pro-B Natriuret Pep Total Protein Albumin LDL Cholesterol Direct HDL Cholesterol TSH Free T4 Arterial Blood Glucose 04/23/21 04/23/21 04/23/21 00:54 00:54 02:51 WBC 11.6 H Hgb 7.9 L Hct 27.2 L MCV 72 L MCH 21 L MCHC 29 L RDW 25.8 H Plt Count 118 L Seg Neuts % (Manual) 91.0 H Lymphocytes % (Manual) 4.0 L Nucleated RBC % Seg Neutrophils # Man 10.6 H Lymphocytes # (Manual) 0.5 L Monocytes # (Manual) PT INR D-Dimer ABG pH POC ABG pCO2 POC ABG pO2 ABG pO2 ABG HCO3 ABG Base Excess ABG Hemoglobin ABG Oxyhemoglobin ABG Sodium ABG Chloride ABG Glucose Oxyhemoglobin Carboxyhemoglobin Sodium 153 H Potassium Chloride Carbon Dioxide 38 H BUN 74 H Creatinine 1.3 H Glucose 205 H POC Glucose Calcium Ionized Calcium Total Bilirubin 1.40 H Direct Bilirubin 0.8 H AST ALT 133 H Total Creatine Kinase Troponin T NT-Pro-B Natriuret Pep Total Protein 8.4 H Albumin 3.2 L LDL Cholesterol Direct HDL Cholesterol TSH Free T4 Arterial Blood Glucose 04/23/21 04/23/21 04/24/21 16:09 21:03 08:03 WBC Hgb Hct MCV MCH MCHC RDW Plt Count Seg Neuts % (Manual) Lymphocytes % (Manual) Nucleated RBC % Seg Neutrophils # Man Lymphocytes # (Manual) Monocytes # (Manual) PT INR D-Dimer ABG pH POC ABG pCO2 POC ABG pO2 ABG pO2 ABG HCO3 ABG Base Excess ABG Hemoglobin ABG Oxyhemoglobin ABG Sodium ABG Chloride ABG Glucose Oxyhemoglobin Carboxyhemoglobin Sodium Potassium Chloride Carbon Dioxide BUN Creatinine Glucose POC Glucose 186 H 110 H 178 H Calcium Ionized Calcium Total Bilirubin Direct Bilirubin AST ALT Total Creatine Kinase Troponin T NT-Pro-B Natriuret Pep Total Protein Albumin LDL Cholesterol Direct HDL Cholesterol TSH Free T4 Arterial Blood Glucose 04/24/21 11:08 WBC Hgb Hct MCV MCH MCHC RDW Plt Count Seg Neuts % (Manual) Lymphocytes % (Manual) Nucleated RBC % Seg Neutrophils # Man Lymphocytes # (Manual) Monocytes # (Manual) PT INR D-Dimer ABG pH POC ABG pCO2 POC ABG pO2 ABG pO2 ABG HCO3 ABG Base Excess ABG Hemoglobin ABG Oxyhemoglobin ABG Sodium ABG Chloride ABG Glucose Oxyhemoglobin Carboxyhemoglobin Sodium Potassium Chloride Carbon Dioxide BUN Creatinine Glucose POC Glucose 189 H Calcium Ionized Calcium Total Bilirubin Direct Bilirubin AST ALT Total Creatine Kinase Troponin T NT-Pro-B Natriuret Pep Total Protein Albumin LDL Cholesterol Direct HDL Cholesterol TSH Free T4 Arterial Blood Glucose Allied health notes reviewed: nursing
[2021-04-24] MEDS: methylPREDNISolone Sod Succinate 40 MG/1 ML INJ IV SCH ×2 (15:00→22:56)
--- NOTE | 2021-04-24 15:14 | Progress Note ---
Assessment and Plan Assessment and plan: -Acute on chronic hypoxic respiratory failure; requiring BiPAP Current Visit: Yes Status: Acute Continue oxygen titrate O2 sats more than 90% Patient sometimes requires continuous BiPAP Multifactorial obesity hypoventilation syndrome Obstructive sleep apnea, COPD, CHF Pulmonary and cardiology following Treat the underlying cause Patient already has home oxygen --Acute exacerbation COPD (chronic obstructive pulmonary disease) Current Visit: Yes Status: Acute Oxygen titrate O2 sats to more than 90%, patient is requiring BiPAP most of the times Wean as tolerated, nebulizers, IV steroids, IV antibiotics, inhalation steroids -- Morbid obesity; BMI 104.4 Current Visit: Yes Status: Acute Patient needs to participate on professional weight reduction program when medically stable. Strongly recommend outpatient follow-up with bariatric surgeon upon discharge when stable --Obesity hypoventilation syndrome; --Obstructive sleep apnea; -- Non-ST elevation DC (NSTEMI) Current Visit: Yes Status: Acute Cardiology evaluation noted and appreciated, continue current cardiac medications Supportive care -- Acute exacerbation of CHF (congestive heart failure) Current Visit: Yes Status: Acute Fluid restriction. Maintain input output. Antifailure medications low-sodium diet Input output monitoring, cardiology following --hypothyroidism /new onset Current Visit: Yes Status: Acute Continue Synthroid, closely monitor Patient needs follow-up with blocker and sewer as outpatient upon DC -- Hypoglycemia/present on admission Current Visit: Yes Status: Acute Now resolved closely monitor blood sugars --acute kidney injury with vasomotor nephropathy Gentle hydration, monitor renal function, avoid nephrotoxins -- Lymphedema of the abdominal wall Due to morbid obesity, supportive care fluid restriction Low-sodium diet --Anemia of chronic disease; Closely monitor H&H, transfuse as needed --Acute transaminitis acute liver failure Acute transaminitis; LFTs trending down Hepatocellular pattern, multifactorial NAFLD, congestive hepatopathy, DILI, GI evaluation and recommendations noted, LFTs trending down -- hypertension Current Visit: Yes Status: Acute Plan to address problem: We will continue the home medication. Hydralazine 10 mg IV every 6 hours as needed. We will monitor the blood pressure closely -- DVT prophylaxis Current Visit: No Status: Acute Plan to address problem: Heparin 5000 units subcu every 8 hours for DVT prophylaxis. Pepcid 20 mg p.o. twice daily for GI prophylaxis. Patient is a full code Also monitor the patient and adjust management as needed DC planning per case management when medically stable and cleared by consultants 04/09 -Patient is on heparin drip for non-STEMI, cardiology is following. -Patient is off Lasix and SUNG inhibitors because of GILBERTO. -Kidney function is worsening overnight and I put a consult for nephrology. -Patient is hypotensive and blood pressure from this morning was 101/41. We will continue to monitor. And if it is dropping we we will give him fluid. -Echo was done and EF of 50 to 55%. Diastolic dysfunction is indeterminate. Management per cardiology -Patient has COPD continues on dexamethasone, nebulizer treatment as needed. -Patient has hyponatremia and hyperkalemia. I give the patient Kayexalate. Monitor electrolytes. Will follow nephrology for additional recommendation. 04/10 -Renal function is worsening, nephrology is following -Blood pressure is better today -Hyperkalemia; I added Kayexalate -Morbid obesity 04/11 -Slight improvement in creatinine. Hyponatremia worsened. Nephrology is following and put the patient back on Lasix. -Blood PRESSURE IS BETTER today -Potassium this morning was 5.8, I ordered 60 g of Kayexalate -Morbidly obese -Obesity hypoventilation syndrome 04/12 -Creatinine is improving and this morning was 2.4 -Hyponatremia improved this morning was 134. Patient is on Lasix -Blood pressure is better -Patient is on 10 L of oxygen; worsened -Morbidly obese, CLAUDIA 04/13: Follow ordered ultrasound of abdomen, per Physician unable to get CT. I ordered an ABG due to my concern about her breathing pattern this morning, patient may benefit from. Will try to establish if patient has a primary pulmonary doctor. ABG is showing consistent with Respiratory Acidosis. Will place on BIPAP now. May need to transfer to IM for closer monitoring. Patient likely with Obesity Hypoventilation syndrome. cardiology work up, ongoing. RENAL SHOWING SOME IMPROVEMENT Guarded prognosis 04/14: Patient seen and examined today identified some lesion under the pannus will obtain wound care and wound surgeon evaluation. Nephrology input noted continue diuresis and stop the sodium tabs creatinine is stable. I did discuss with the family and updated them. We will continue to hold SUNG and ARB and if pressures continue to drop may need to hold diuresis also despite as written above. Monitor labs including H&H. She is more awake review of ABG shows improving CO2. Will discuss with case management as patient may need BiPAP on discharge home. I also updated the family 04/15: Patient showing some clinical improvement. Liver enzymes is showing mild improvement although bilirubin increased slightly. GI input noted and as discussed by his notes below "Abnormal liver enzymes in hepatocellular pattern. broad ddx and likely multifactorial causes including NAFLD, congestive hepatopathy, possibly DILI. will check viral hep serologies. US with limited views, possible coarsening of the liver" Patient also evaluated by surgery noted with the lymphedema of abdominal wall and open wound of the abdominal wall without penetration into the abdominal cavity with recommendation to pack the wounds daily with mesalt. Need to maintain dry environment discussed with nursing staff. Elevate the pannus and optimize nutrition for which I will get nutritional consult. No surgical intervention at this time. Patient is bedbound when I asked when last she ambulated she said while "I guess he has not worked" but it has been a while. Unfortunately the LTAC center unwilling to accept the patient will discuss with pulmonary and with case management about obtaining BiPAP for this patient and possible SNF referral. 04/16: Patient this morning and was noted significantly lethargic and unresponsive respiratory and a code to be called. The patient resuscitated without any invasive procedure. ABG was obtained showed a CO2 of 142. Despite using BiPAP for some time through the night, sure how long she used it for. I have discontinued all IV opioids and recommend no IV opioids for this patient at this time. I also discontinued p.o. medications as an essential medication and change to IV. We will repeat an ABG in an hour to see if there is some improvement. Patient remains at high risk for possible intubation. Clinical condition is guarded 04/17: Patient remains on BiPAP this am, has some intermittent twitching, will check EEG, not likely seizure, but will monitor. Continue current management , check Albumin and Pre-Albumin level. Remains critically ill. Liver status showing improvement. 04/18: Patient with elevated D-dimer unfortunately size precludes being able to have a CTA chest done here to rule out pulmonary embolism. Doppler of lower extremities is pending. We will continue subcu anticoagulation with heparin at this time. Until Doppler is resolved. Patient is not hypoxic so doubt pulmonary embolism at this time. Her problem remains hypercapnia. I did take time to go over her history while she has been around hospital in the past and noticed a remarkable increase in her BMI from the last 2 years. Discussed with the policeman will agree to check thyroid function test. Critical care time 35- minute 04/19: Patient with hypothyroidism, while she does not appear to be with myxedema coma at this time. Will initiate levothyroxine as I believe that this will make profound impact her management at this time, continue BiPAP continue current management. Seroquel was added by pulmonary for delirium and agitation management, Ventimask during the day and BiPAP at night 04/20: Continue levothyroine, can change to PO in am. Will obtain Psych consult, she is clinically stable and will transfer to floor 04/21; levothyroxine changed to 100 mg p.o. daily Senior Partner recommendations noted and appreciated Monitor LFTs 04/22; patient continues to be hypoxemic on continuous BiPAP Consultants and recommendations noted and appreciated Continue current management 04/23; patient has intermittent hallucination, psych following Patient is currently on nasal cannula oxygen, refusing BiPAP Mild distress and confused 04/24; possible discharge tomorrow With home health, home oxygen Discussed with quality assurance qa lab analyst History Interval history: I seen and examined the patient at the bedside Patient is in mild distress saturating well on 4 L of nasal cannula oxygen Patient is morbidly obese severely hypoxemic No new events reported by nursing Vital signs noted Hospitalist Physical - Constitutional Vitals: Temp Pulse Resp BP Pulse Ox 98.1 F 116 H 20 101/50 94 04/24/21 11:15 04/24/21 14:03 04/24/21 14:03 04/24/21 11:15 04/24/21 14:02 General appearance: Present: mild distress, well-nourished, obese (Morbidly obese), other (Confused) - EENT Eyes: Present: PERRL, EOM intact - Neck Neck: Present: supple, normal ROM - Respiratory Respiratory effort: normal Respiratory: bilateral: diminished, negative: rales, rhonchi, wheezing - Cardiovascular Rhythm: regular Heart Sounds: Present: S1 & S2 - Extremities Extremities: no ischemia, No edema - Abdominal General gastrointestinal: soft, non-tender, non-distended, normal bowel sounds - Integumentary Integumentary: Present: clear, warm - Psychiatric Psychiatric: appropriate mood/affect, cooperative - Neurologic Neurologic: moves all extremities HEART Score - HEART Score Troponin: Troponin T 0.078 ng/mL (0.00-0.029) H D 04/08/21 13:03 Results - Labs CBC & Chem 7: 04/23/21 02:51 04/23/21 00:54 Labs: Laboratory Last Values WBC 11.6 K/mm3 (4.5-11.0) H 04/23/21 02:51 RBC 3.79 M/mm3 (3.65-5.03) 04/23/21 02:51 Hgb 7.9 gm/dl (10.1-14.3) L 04/23/21 02:51 Hct 27.2 % (30.3-42.9) L 04/23/21 02:51 MCV 72 fl (79-97) L 04/23/21 02:51 MCH 21 pg (28-32) L 04/23/21 02:51 MCHC 29 % (30-34) L 04/23/21 02:51 RDW 25.8 % (13.2-15.2) H 04/23/21 02:51 Plt Count 118 K/mm3 (140-440) L 04/23/21 02:51 Add Manual Diff Complete 04/23/21 02:51 Total Counted 100 04/23/21 02:51 Seg Neuts % (Manual) 91.0 % (40.0-70.0) H 04/23/21 02:51 Band Neutrophils % 2.0 % 04/23/21 02:51 Lymphocytes % (Manual) 4.0 % (13.4-35.0) L 04/23/21 02:51 Reactive Lymphs % (Man) 1.0 % 04/12/21 14:11 Monocytes % (Manual) 3.0 % (0.0-7.3) 04/23/21 02:51 Metamyelocytes % 2.0 % 04/12/21 14:11 Myelocytes % 2.0 % 04/08/21 04:03 Nucleated RBC % Not Reportable 04/23/21 02:51 Seg Neutrophils # Man 10.6 K/mm3 (1.8-7.7) H 04/23/21 02:51 Band Neutrophils # 0.2 K/mm3 04/23/21 02:51 Lymphocytes # (Manual) 0.5 K/mm3 (1.2-5.4) L 04/23/21 02:51 Abs React Lymphs (Man) 0.0 K/mm3 04/23/21 02:51 Monocytes # (Manual) 0.3 K/mm3 (0.0-0.8) 04/23/21 02:51 Eosinophils # (Manual) 0.0 K/mm3 (0.0-0.4) 04/23/21 02:51 Basophils # (Manual) 0.0 K/mm3 (0.0-0.1) 04/23/21 02:51 Metamyelocytes # 0.0 K/mm3 04/23/21 02:51 Myelocytes # 0.0 K/mm3 04/23/21 02:51 Promyelocytes # 0.0 K/mm3 04/23/21 02:51 Blast Cells # 0.0 K/mm3 04/23/21 02:51 WBC Morphology Not Reportable 04/23/21 02:51 Hypersegmented Neuts Not Reportable 04/23/21 02:51 Hyposegmented Neuts Not Reportable 04/23/21 02:51 Hypogranular Neuts Not Reportable 04/23/21 02:51 Smudge Cells Not Reportable 04/23/21 02:51 Toxic Granulation Not Reportable 04/23/21 02:51 Toxic Vacuolation Not Reportable 04/23/21 02:51 Dohle Bodies Not Reportable 04/23/21 02:51 Pelger-Huet Anomaly Not Reportable 04/23/21 02:51 Ana Cristina Rods Not Reportable 04/23/21 02:51 Platelet Estimate Not Reportable 04/23/21 02:51 Clumped Platelets Not Reportable 04/23/21 02:51 Plt Clumps, EDTA Not Reportable 04/23/21 02:51 Large Platelets Not Reportable 04/23/21 02:51 Giant Platelets Not Reportable 04/23/21 02:51 Platelet Satelliting Not Reportable 04/23/21 02:51 Plt Morphology Comment Not Reportable 04/23/21 02:51 RBC Morphology Not Reportable 04/23/21 02:51 Dimorphic RBCs Yes 04/23/21 02:51 Polychromasia Few 04/23/21 02:51 Hypochromasia 2+ 04/23/21 02:51 Poikilocytosis Not Reportable 04/23/21 02:51 Anisocytosis 2+ 04/23/21 02:51 Microcytosis Not Reportable 04/23/21 02:51 Macrocytosis Not Reportable 04/23/21 02:51 Spherocytes Not Reportable 04/23/21 02:51 Pappenheimer Bodies Not Reportable 04/23/21 02:51 Sickle Cells Not Reportable 04/23/21 02:51 Target Cells Few 04/23/21 02:51 Tear Drop Cells Not Reportable 04/23/21 02:51 Ovalocytes Few 04/23/21 02:51 Helmet Cells Not Reportable 04/23/21 02:51 [place] Bodies Not Reportable 04/23/21 02:51 [place] Rings Not Reportable 04/23/21 02:51 [place] Cells Not Reportable 04/23/21 02:51 Bite Cells Not Reportable 04/23/21 02:51 Crenated Cell Not Reportable 04/23/21 02:51 Elliptocytes Not Reportable 04/23/21 02:51 Acanthocytes (Spur) Not Reportable 04/23/21 02:51 Rouleaux Not Reportable 04/23/21 02:51 Hemoglobin C Crystals Not Reportable 04/23/21 02:51 Schistocytes Not Reportable 04/23/21 02:51 Malaria parasites Not Reportable 04/23/21 02:51 Tyshawn Bodies Not Reportable 04/23/21 02:51 Hem Pathologist Commnt No 04/23/21 02:51 PT 18.7 Sec. (12.2-14.9) H 04/18/21 16:55 INR 1.51 (0.87-1.13) H 04/18/21 16:55 APTT 25.2 Sec. (24.2-36.6) 04/18/21 16:55 D-Dimer 5410.10 ng/mlDDU (0-234) H 04/17/21 16:03 ABG pH 7.382 (7.320-7.450) 04/18/21 14:19 POC ABG pCO2 67.4 mmHg (32.0-48.0) H 04/18/21 14:19 ABG pCO2 86.9 mm Hg 04/13/21 18:40 POC ABG pO2 150.6 mmHg (83-108) H 04/18/21 14:19 ABG pO2 81.8 mm Hg (80.0-90.0) 04/13/21 18:40 POC ABG HCO3 39.2 04/18/21 14:19 ABG HCO3 36.2 mmol/L (20.0-26.0) H 04/13/21 18:40 ABG O2 Saturation 99.4 (0-100) 04/18/21 14:19 ABG O2 Content 10.4 (0.0-44) 04/13/21 18:40 POC ABG Base Excess 12.2 04/18/21 14:19 ABG Base Excess 7.4 mmol/L (-2.0-3.0) H 04/13/21 18:40 ABG Hemoglobin 9.3 (12.0-17.5) L 04/18/21 14:19 ABG Oxyhemoglobin 97.5 (94-98) 04/18/21 14:19 ABG Carboxyhemoglobin 1.9 % (0.0-5.0) 04/13/21 18:40 ABG Methemoglobin 0.3 (0.0-1.5) 04/18/21 14:19 ABG Sodium 143.0 mmol/L (136.0-145.0) 04/18/21 14:19 ABG Potassium 4.2 mmol/L (3.40-4.50) 04/18/21 14:19 ABG Chloride 98.0 mmol/L (98-107) 04/18/21 14:19 ABG Glucose 162 mg/dL (65-95) H 04/18/21 14:19 Oxyhemoglobin 93.7 % (95.0-99.0) L 04/13/21 18:40 Carboxyhemoglobin 1.6 (0.5-1.5) H 04/18/21 14:19 FiO2 30 % 04/13/21 18:40 FiO2 % 35.0 04/18/21 14:19 Sodium 153 mmol/L (137-145) H 04/23/21 00:54 Potassium 4.9 mmol/L (3.6-5.0) 04/23/21 00:54 Chloride 106.4 mmol/L (98-107) 04/23/21 00:54 Carbon Dioxide 38 mmol/L (22-30) H 04/23/21 00:54 Anion Gap 14 mmol/L 04/23/21 00:54 BUN 74 mg/dL (7-17) H 04/23/21 00:54 Creatinine 1.3 mg/dL (0.6-1.2) H 04/23/21 00:54 Estimated GFR 57 ml/min 04/23/21 00:54 BUN/Creatinine Ratio 57 % 04/23/21 00:54 Glucose 205 mg/dL (65-100) H 04/23/21 00:54 POC Glucose 189 mg/dL (70-105) H 04/24/21 11:08 Osmolality 301 Mosm/kg 04/09/21 23:15 Calcium 9.4 mg/dL (8.4-10.2) 04/23/21 00:54 Ionized Calcium 3.6 mg/dL (4.8-5.6) L 04/09/21 23:15 Magnesium 2.10 mg/dL (1.7-2.3) 04/23/21 00:54 Total Bilirubin 1.40 mg/dL (0.1-1.2) H 04/23/21 00:54 Direct Bilirubin 0.8 mg/dL (0-0.2) H 04/23/21 00:54 Indirect Bilirubin 0.6 mg/dL 04/23/21 00:54 AST 36 units/L (5-40) 04/23/21 00:54 ALT 133 units/L (7-56) H 04/23/21 00:54 Alkaline Phosphatase 60 units/L (35-129) 04/23/21 00:54 Total Creatine Kinase 1712 units/L (30-135) H 04/10/21 10:04 Troponin T 0.078 ng/mL (0.00-0.029) H D 04/08/21 13:03 NT-Pro-B Natriuret Pep 7573 pg/mL (0-450) H 04/07/21 22:04 Total Protein 8.4 g/dL (6.3-8.2) H 04/23/21 00:54 Albumin 3.2 g/dL (3.9-5) L 04/23/21 00:54 Albumin/Globulin Ratio 0.6 % 04/23/21 00:54 Triglycerides 105 mg/dL (2-149) 04/07/21 22:04 Cholesterol 85 mg/dL (50-199) 04/07/21 22:04 LDL Cholesterol Direct 47 mg/dL (50-130) L 04/07/21 22:04 HDL Cholesterol 25 mg/dL (40-59) L 04/07/21 22:04 Cholesterol/HDL Ratio 3.40 % 04/07/21 22:04 TSH 6.140 mlU/mL (0.270-4.200) H 04/18/21 19:55 Free T4 0.67 ng/dL (0.76-1.46) L 04/18/21 19:55 Total Cortisol 41.3 mcg/dL () 04/10/21 10:04 Arterial Blood Glucose 162 mg/dL (65-95) H 04/18/21 14:19 Arterial Blood Ionized Calcium 4.6 mg/dL (4.6-5.3) 04/16/21 07:32 Urine Osmolality 157 Mosm/kg 04/09/21 18:46 Urine Sodium 16 mmol/L 04/09/21 18:46 Coronavirus (PCR) Negative (Negative) 04/14/21 Unknown Hepatitis A IgM Ab Non-reactive (NonReactive) 04/14/21 18:45 Hep Bs Antigen Nonreactive (Negative) 04/14/21 18:45 Hepatitis C Antibody Non-reactive (NonReactive) 04/14/21 18:45 Zambrano/IV: Voiding Method Indwelling Catheter Active Medications - Current Medications Current Medications: Generic Name Dose Route Start Last Admin Trade Name Freq PRN Reason Stop Dose Admin Acetaminophen 650 mg 04/08/21 03:00 04/17/21 06:42 Acetaminophen 325 Mg Tab PO 650 mg Q4H PRN Administration Pain MILD(1-3)/Fever >100.5/BROWN Albuterol 2.5 mg 04/08/21 03:00 Albuterol 2.5 Mg/3 Ml Nebu IH Q4HRT PRN Shortness Of Breath Albuterol/Ipratropium 1 ampul 04/08/21 08:00 04/24/21 13:59 Ipratropium/Albuterol Sulfate 3 Ml Ampul.Neb IH 1 ampul TIDRT EKATERINA Administration Aspirin 325 mg 04/09/21 10:00 04/23/21 11:00 Aspirin Ec 325 Mg Tab PO 325 mg QDAY EKATERINA Administration Atorvastatin Calcium 40 mg 04/08/21 22:00 04/23/21 23:01 Atorvastatin 40 Mg Tab PO Not Given QHS EKATERINA Benzonatate 100 mg 04/08/21 06:00 04/24/21 06:07 Benzonatate 100 Mg Cap PO 100 mg Q8HR EKATERINA Administration Guaifenesin 200 mg 04/12/21 14:47 04/17/21 06:43 Guaifenesin 100 Mg/5 Ml Oral Liqd PO 200 mg Q4H PRN Administration Cough Haloperidol Lactate 5 mg 04/18/21 16:27 04/21/21 03:30 Haloperidol Lactate 5 Mg/1 Ml Inj IV 5 mg Q6H PRN Administration Agitation Heparin Sodium (Porcine) 5,000 unit 04/18/21 14:00 04/24/21 06:07 Heparin 5,000 Unit/1 Ml Vial SUB-Q 5,000 unit Q8HR EKATERINA Administration Hydralazine HCl 10 mg 04/19/21 17:25 04/22/21 08:54 Hydralazine 20 Mg/1 Ml Inj IV 10 mg Q6H PRN Administration Blood Pressure Dextrose 1,000 mls @ 75 mls/hr 04/23/21 12:00 04/23/21 23:18 D5w IV 75 mls/hr DIRECT EKATERINA Administration Levothyroxine Sodium 100 mcg 04/22/21 06:00 04/24/21 06:07 Levothyroxine 100 Mcg Tab PO 100 mcg DAILY@0600 EKATERINA Administration Methylprednisolone Sodium Succinate 20 mg 04/16/21 10:00 04/23/21 23:07 Methylprednisolone Sod Succinate 40 Mg/1 Ml Inj IV 20 mg Q12HR EKATERINA Administration Nitroglycerin 0.4 mg 04/08/21 03:00 Nitroglycerin 0.4 Mg Tab Subl SL Q5M PRN Chest Pain Nystatin 1 applic 04/08/21 18:00 04/24/21 06:23 Nystatin Powder 15 Gm TP Not Given BID EKATERINA Ondansetron HCl 4 mg 04/08/21 03:00 04/15/21 23:51 Ondansetron 4 Mg/2 Ml Inj IV 4 mg Q8H PRN Administration Nausea And Vomiting Oxycodone/Acetaminophen 1 tab 04/08/21 03:00 04/21/21 16:26 Oxycodone /Acetaminophen 5-325mg Tab PO 1 tab Q6H PRN Administration Pain, Moderate (4-6) Pantoprazole Sodium 40 mg 04/23/21 07:30 04/23/21 08:00 Pantoprazole 40 Mg Tab PO 40 mg QDAC EKATERINA Administration Quetiapine Fumarate 75 mg 04/18/21 22:00 04/23/21 23:01 Quetiapine 25 Mg Tab PO Not Given QHS EKATERINA Sodium Chloride 10 ml 04/08/21 10:00 04/23/21 23:07 Sodium Chloride 0.9% 10 Ml Flush Syringe IV 10 ml BID EKATERINA Administration Sodium Chloride 10 ml 04/08/21 03:00 Sodium Chloride 0.9% 10 Ml Flush Syringe IV PRN PRN LINE FLUSH Tramadol HCl 50 mg 04/08/21 03:00 04/20/21 21:50 Tramadol 50 Mg Tab PO 50 mg Q6H PRN Administration Pain, Moderate (4-6) Nutrition/Malnutrition Assess - Dietary Evaluation Nutrition/Malnutrition Findings: Nutrition Notes Start: 04/08/21 14:21 Freq: Status: Active Protocol: Document 04/20/21 15:55 MARIELY (Rec: 04/20/21 16:53 MARIELY [id number]) Nutrition Notes Need for Assessment generated from: pension adviser Initial or Follow up Reassessment Current Diagnosis Heart Failure Other Pertinent Diagnosis Accute Kidney Injury Current Diet Renal Diet (from B 04/13). Labs/Tests 04/20: Na 147, CO2 37, BUN 74, Cr 1.3, Glu 193. Pertinent Medications Reviewed. Height 5 ft 4 in Weight 277.3 kg [place] Body Weight (kg) 54.54 BMI 104.9 Intake Prior to Admission Good Weight change and time frame expect weight fluctuations r/t fluid therapy, CHF complications Weight Status Morbidly Obese Subjective/Other Information Pt developed accute renal condition that requires support from Renal Diet. Percent of energy/protein needs met: Renal diet provides all energy /protein needs (2072 Kcal/77 g ) per day. Burn Absent Trauma Absent GI Symptoms None Food Allergy No Skin Integrity/Comment Integumentary: clear, warm, dry. Current % PO Good (75-100%) Minimum of two criteria No physical signs of malnutrition #1 Nutrition Diagnosis Altered nutrition-related laboratory values,Overweight/ obesity Comments: Pt developed accute renal condition that requires support from Renal Diet. Etiology Accute Kidney Injury resulted from complications from concomitant conditions As Evidenced by Signs and Symptoms Altered lab values and MD diagnosis Diagnosis Progress(for reassessment Worsened documentation) Is patient on ventilator? No Is Patient Ambulatory and/or Out of Bed Yes REE-([place]-St. Jeor-ambulatory/OOB) [ 4501.900 [id number]] Kcal/Kg value to use for calculation 10 Approximate Energy Requirements Using 2773 kcal/Kg Calculation Used for Recommendations Kcal/Kg of IBW Additional Notes Protein 1.0 g/Kg; 55 g/day; 220 Kcal/day (from IBW). Fluids: 1ml/kcal or per MD Nutrition Intervention Change Diet Order: Continue Renal Diet as MD prescribed. Teaching Recipient Patient Learning Readiness Good Teaching Methods Discussion Response to Teaching Verbalize understanding, Reinforcement needed Barriers to Learning Motivation,Emotional,Social Patient aware of follow up options Yes Actions To Overcome Barriers Collaboration with Other Providers Goal #1 Achieve and maintain acceptable chemistry lab values during LOS Goal #2 Support Improvement in renal functions while providing energy/protein needs during LOS Follow-Up By: 04/27/21 Additional Comments Continue monitoring % of food intake and tolerance, and BM. Reinforce education towards bariatric therapy after accute kidney injury is solved.
[2021-04-24] MEDS: DEXTROSE 5% IN WATER 1,000 ML IV SCH ×2 (17:30→22:46)
[2021-04-24] MEDS ORDERED: SODIUM CHLORIDE 0.9% 250ML 250 ML IV ONE (20:06)
[2021-04-24] MEDS ORDERED: SODIUM CHLORIDE 0.9% 500 ML 500 ML ONE (20:47)
[2021-04-24] MEDS ORDERED: NORepinephrine/NS 4 MG-250 ML 4 MG/250 ML BAG IV ONE (21:05)
[2021-04-24] MEDS ORDERED: SODIUM BICARB 8.4% 50 MEQ/50 ML SYRINGE IV ONE ×3 (21:15→21:21)
[2021-04-24] MEDS: NORepinephrine/NS 4 MG-250 ML 4 MG/250 ML BAG IV SCH (21:17)
[2021-04-24] MEDS ORDERED: SODIUM CHLORIDE 0.9% 500 ML 500 ML IV ONE (21:41)
[2021-04-24] MEDS: QUEtiapine 25 MG TAB PO SCH (21:46)
[2021-04-25] MEDS: NORepinephrine/NS 4 MG-250 ML 4 MG/250 ML BAG IV SCH ×2 (01:57→10:32)
[2021-04-25] MEDS: DEXTROSE 5% IN WATER 1,000 ML IV SCH ×2 (04:04→14:00)
[2021-04-25] MEDS: NYSTATIN POWDER 15 GM TP SCH ×3 (04:05→22:17)
[2021-04-25] MEDS: HEPARIN 5,000 UNIT/1 ML VIAL SUB-Q SCH ×3 (05:13→22:18)
[2021-04-25] MEDS: PANTOPRAZOLE 40 MG TAB PO SCH (08:00)
--- NOTE | 2021-04-25 08:26 | XRay Report ---
CHEST 1 VIEW INDICATION: r/o aspiration. COMPARISON: 04/12/2021 FINDINGS: Support devices: None. Heart: Enlarged, similar to the prior. Lungs/Pleura: There are low lung volumes with elevation of the right hemidiaphragm. This along with u nderpenetration limits evaluation of the lungs. No pleural abnormality. IMPRESSION: 1. Accounting for low lung volumes and underpenetration related to patient body habitus, no definite acute findings or significant change since the prior exam from 04/12/2021. Signer Name: Jose Martin Lara MD Signed: 04/25/2021 8:22 AM Workstation Name: [id number]
[2021-04-25] MEDS: IPRATROPIUM/ALBUTEROL SULFATE 3 ML AMPUL.NEB IH SCH ×3 (08:57→21:04)
--- NOTE | 2021-04-25 09:41 | Progress Note ---
Assessment and Plan Assessment Acute kidney injury, unknown baseline. Renal ultrasound notes poor visualization due to body habitus. Hypernatremia Hyperkalemia Hypocalcemia Morbid obesity Acute hypoxemic and hypercapnic respiratory failure Acute exacerbation of CHF (congestive heart failure) Hypertension Sleep apnea Recommendations Na higher previously at 147->153, no labs for review so far this AM Increase free water intake as able, if unable to drink, will continue D5W Creatinine stable at 1.3 Urine output appears lower Now with soft BP, holding meds, on pressor support echo noted, likely diastolic disease Avoid diuresis if able given hypernatremia, note good urine output Maintain MAP more than 65 Hold SUNG/ARB at this time Renally dose medications Avoid nephrotoxins Renal diet Daily renal labs Subjective Date of service: 04/25/21 Principal diagnosis: Ac hypoxemic and hypercapnic resp failure; AE-CHF; Morbid obesity; CLAUDIA/OHS Interval history: Transferred to ICU overnight for hypotension, on Levophed this AM. On D5W Objective - Exam Narrative Exam: General: Morbid obesity, on facemask, mild discomfort HEENT: Oral mucosa moist Neck: Supple, no JVD Chest: labored breathing on NC Heart: RRR, S1 and S2 Abdomen: Soft, nontender Extremity: No peripheral cyanosis, edema Neurological: Awake and alert Dermatology: skin intact Psych: Calm and cooperative Musculoskeletal: No joint effusion - Vital Signs Vital signs: Vital Signs - 12hr 04/24/21 04/24/21 04/24/21 21:44 22:00 22:45 Temperature Pulse Rate 121 H 121 H 92 H Pulse Rate [ Anterior Bilateral Throughout] Respiratory 22 29 H Rate Respiratory Rate [Anterior Bilateral Throughout] Respiratory Rate [Left Abdomen] Blood Pressure O2 Sat by Pulse 91 86 100 Oximetry 04/24/21 04/24/21 04/24/21 23:00 23:46 23:52 Temperature 98.9 F Pulse Rate 118 H 108 H Pulse Rate [ Anterior Bilateral Throughout] Respiratory 35 H 30 H Rate Respiratory Rate [Anterior Bilateral Throughout] Respiratory Rate [Left Abdomen] Blood Pressure 144/97 144/97 O2 Sat by Pulse 100 95 Oximetry 04/25/21 04/25/21 04/25/21 00:00 00:10 00:40 Temperature Pulse Rate 108 H 109 H 92 H Pulse Rate [ Anterior Bilateral Throughout] Respiratory 30 H 30 H Rate Respiratory Rate [Anterior Bilateral Throughout] Respiratory Rate [Left Abdomen] Blood Pressure 98/60 98/60 O2 Sat by Pulse 96 95 100 Oximetry 04/25/21 04/25/21 04/25/21 01:00 02:00 02:48 Temperature 102.9 F H Pulse Rate 101 H 107 H Pulse Rate [ Anterior Bilateral Throughout] Respiratory 30 H 15 Rate Respiratory Rate [Anterior Bilateral Throughout] Respiratory Rate [Left Abdomen] Blood Pressure 97/61 120/103 O2 Sat by Pulse 98 85 Oximetry 04/25/21 04/25/21 04/25/21 03:00 04:00 04:05 Temperature Pulse Rate 102 H 91 H Pulse Rate [ Anterior Bilateral Throughout] Respiratory 20 12 Rate Respiratory Rate [Anterior Bilateral Throughout] Respiratory 20 Rate [Left Abdomen] Blood Pressure 109/66 93/58 O2 Sat by Pulse 95 100 Oximetry 04/25/21 04/25/21 04/25/21 04:13 05:00 05:05 Temperature Pulse Rate 98 H 103 H Pulse Rate [ Anterior Bilateral Throughout] Respiratory 15 15 Rate Respiratory Rate [Anterior Bilateral Throughout] Respiratory Rate [Left Abdomen] Blood Pressure 93/58 122/78 O2 Sat by Pulse 100 97 100 Oximetry 04/25/21 04/25/21 06:00 09:00 Temperature Pulse Rate 104 H Pulse Rate [ 97 H Anterior Bilateral Throughout] Respiratory 18 Rate Respiratory 27 H Rate [Anterior Bilateral Throughout] Respiratory Rate [Left Abdomen] Blood Pressure 66/34 O2 Sat by Pulse 98 98 Oximetry - Lab 04/23/21 02:51 04/23/21 00:54 Most recent lab results ABG pH 7.382 (7.320-7.450) 04/18/21 14:19 ABG pCO2 86.9 mm Hg 04/13/21 18:40 ABG pO2 81.8 mm Hg (80.0-90.0) 04/13/21 18:40 ABG HCO3 36.2 mmol/L (20.0-26.0) H 04/13/21 18:40 ABG O2 Saturation 99.4 (0-100) 04/18/21 14:19 Calcium 9.4 mg/dL (8.4-10.2) 04/23/21 00:54 Magnesium 2.10 mg/dL (1.7-2.3) 04/23/21 00:54 Urine Sodium 16 mmol/L 04/09/21 18:46 Medications & Allergies - Medications Allergies/Adverse Reactions: Allergies No Known Allergies Allergy (Unverified 01/27/17 11:17) Home Medications: Home Medications Medication Instructions Recorded Confirmed Last Taken Type Albuterol Mdi (or & Nicu Only) 2 puff IH QID PRN #1 inhalation 08/10/20 04/24/21 Unknown Rx [ProAir HFA Inhaler] ALBUTEROL NEB's [Proventil 0.083% 2.5 mg IH Q4H PRN 04/24/21 04/24/21 Unknown History NEBS] Atrovent HFA 17MCG/PUFF 2 puff IH QID 04/24/21 04/24/21 Unknown History Ferrous Sulfate [Feosol] 325 mg PO QDAY 04/24/21 04/24/21 Unknown History Fluticasone/Salmeterol [Advair 1 puff IH BID 04/24/21 04/24/21 Unknown History Diskus 250-50 mcg] Furosemide [Lasix TAB] 40 mg PO QDAY 04/24/21 04/24/21 Unknown History Ibuprofen [Motrin 800 MG tab] 800 mg PO Q6H PRN 04/24/21 04/24/21 Unknown History Metformin HCl [Metformin HCl ER] 750 mg PO QDAY 04/24/21 04/24/21 Unknown History Semaglutide [Ozempic] 0.25 mg SQ QWEEK 04/24/21 04/24/21 Unknown History amLODIPine [Norvasc] 10 mg PO DAILY 04/24/21 04/24/21 Unknown History Active Medications: Generic Name Dose Route Start Last Admin Trade Name Freq PRN Reason Stop Dose Admin Acetaminophen 650 mg 04/08/21 03:00 04/17/21 06:42 Acetaminophen 325 Mg Tab PO 650 mg Q4H PRN Administration Pain MILD(1-3)/Fever >100.5/BROWN Albuterol 2.5 mg 04/08/21 03:00 Albuterol 2.5 Mg/3 Ml Nebu IH Q4HRT PRN Shortness Of Breath Albuterol/Ipratropium 1 ampul 04/08/21 08:00 04/25/21 08:57 Ipratropium/Albuterol Sulfate 3 Ml Ampul.Neb IH 1 ampul TIDRT EKATERINA Administration Aspirin 325 mg 04/09/21 10:00 04/24/21 14:00 Aspirin Ec 325 Mg Tab PO 325 mg QDAY EKATERINA Administration Atorvastatin Calcium 40 mg 04/08/21 22:00 04/24/21 22:53 Atorvastatin 40 Mg Tab PO Not Given QHS EKATERINA Benzonatate 100 mg 04/08/21 06:00 04/24/21 22:53 Benzonatate 100 Mg Cap PO Not Given Q8HR EKATERINA Guaifenesin 200 mg 04/12/21 14:47 04/17/21 06:43 Guaifenesin 100 Mg/5 Ml Oral Liqd PO 200 mg Q4H PRN Administration Cough Haloperidol Lactate 5 mg 04/18/21 16:27 04/21/21 03:30 Haloperidol Lactate 5 Mg/1 Ml Inj IV 5 mg Q6H PRN Administration Agitation Heparin Sodium (Porcine) 5,000 unit 04/18/21 14:00 04/25/21 05:13 Heparin 5,000 Unit/1 Ml Vial SUB-Q 5,000 unit Q8HR EKATERINA Administration Hydralazine HCl 10 mg 04/19/21 17:25 04/22/21 08:54 Hydralazine 20 Mg/1 Ml Inj IV 10 mg Q6H PRN Administration Blood Pressure Dextrose 1,000 mls @ 100 mls/hr 04/24/21 21:46 04/25/21 04:04 D5w IV 100 mls/hr DIRECT EKATERINA Administration Norepinephrine 4 mg in 250 mls @ 37.5 mls/hr 04/24/21 20:41 04/25/21 08:15 Levophed Drip 4 Mg/Ns 250 Ml IV 6 mcg/min TITR EKATERINA 22.5 mls/hr Titration Protocol 10 MCG/MIN Levothyroxine Sodium 100 mcg 04/22/21 06:00 04/24/21 06:07 Levothyroxine 100 Mcg Tab PO 100 mcg DAILY@0600 EKATERINA Administration Methylprednisolone Sodium Succinate 20 mg 04/16/21 10:00 04/24/21 22:56 Methylprednisolone Sod Succinate 40 Mg/1 Ml Inj IV 20 mg Q12HR EKATERINA Administration Nitroglycerin 0.4 mg 04/08/21 03:00 Nitroglycerin 0.4 Mg Tab Subl SL Q5M PRN Chest Pain Nystatin 1 applic 04/08/21 18:00 04/25/21 04:05 Nystatin Powder 15 Gm TP 1 applic BID EKATERINA Administration Ondansetron HCl 4 mg 04/08/21 03:00 04/15/21 23:51 Ondansetron 4 Mg/2 Ml Inj IV 4 mg Q8H PRN Administration Nausea And Vomiting Oxycodone/Acetaminophen 1 tab 04/08/21 03:00 04/21/21 16:26 Oxycodone /Acetaminophen 5-325mg Tab PO 1 tab Q6H PRN Administration Pain, Moderate (4-6) Pantoprazole Sodium 40 mg 04/23/21 07:30 04/24/21 14:00 Pantoprazole 40 Mg Tab PO 40 mg QDAC EKATERINA Administration Quetiapine Fumarate 75 mg 04/18/21 22:00 04/24/21 21:46 Quetiapine 25 Mg Tab PO Not Given QHS EKATERINA Sodium Chloride 10 ml 04/08/21 10:00 04/24/21 21:46 Sodium Chloride 0.9% 10 Ml Flush Syringe IV 10 ml BID EKATERINA Administration Sodium Chloride 10 ml 04/08/21 03:00 04/24/21 20:43 Sodium Chloride 0.9% 10 Ml Flush Syringe IV 10 ml PRN PRN Administration LINE FLUSH Tramadol HCl 50 mg 04/08/21 03:00 04/20/21 21:50 Tramadol 50 Mg Tab PO 50 mg Q6H PRN Administration Pain, Moderate (4-6)
[2021-04-25] MEDS: methylPREDNISolone Sod Succinate 40 MG/1 ML INJ IV SCH ×2 (10:26→22:18)
[2021-04-25] MEDS: ASPIRIN EC 325 MG TAB PO SCH (10:28)
[2021-04-25] MEDS: BENZONATATE 100 MG CAP PO SCH ×3 (10:28→22:19)
[2021-04-25] MEDS: LEVOTHYROXINE 100 MCG TAB PO SCH (10:29)
--- NOTE | 2021-04-25 10:44 | Progress Note ---
Subjective - Reason for Consult Consult date: 04/25/21 Reason for consult: MHE - Chief Complaint Chief complaint: Nursing staff: Nurse caring for patient today states she has been pulling out lines at resistive to care at times. The patient was moved to ICU after being found unresponsive to verbal and tactile stimuli. She is sedated and therefore could not be evaluated. REVIEW OF SYSTEMS: Unable to assess MENTAL STATUS EXAMINATION: Unable to assess Assessment (1) encounter for screening examination for mental health and behavioral disorder- Z13.30 Current Visit: Yes Status: Acute Treatment Plan Agree with prescribed meds Start Valproic 500mg IV q12h The patient to comply with previously prescribed medications Risks, benefits and alternatives of medications discussed with the patient, questions answered and consent obtained from patient. PSYCHOTHERAPY: Supportive psychotherapy provided MEDICAL: Per primary team DELIRIUM PRECAUTIONS: Please re-orient patient frequently, keep lights on during the day, and minimize benzodiazepines and opiates as these medications could worsen patient's confusion. COMMUNICATIONS CONSULTANT: Defer to primary DISPOSITION: Do not recommend acute inpatient psychiatric hospitalization at this time. FOLLOW-UP: Will follow for psych progress Post hospital care: primary care provider, psychiatric provider Case staffed with Dr. Dunn Mental Status Exam - Vital signs Last Vital Signs Temp 102.9 F H 04/25/21 02:48 Pulse 97 H 04/25/21 09:00 Resp 27 H 04/25/21 09:00 BP 66/34 04/25/21 06:00 Pulse Ox 98 04/25/21 09:00
[2021-04-25 10:49] LABS: Mean Corpuscular HGB Conc 28 % (30-34); Mean Corpuscular Volume 76 fl (79-97); Red Blood Count 4.41 M/mm3 (3.65-5.03)
--- NOTE | 2021-04-25 10:50 | Progress Note ---
Assessment and Plan Assessment and plan: --Acute metabolic encephalopathy; Current Visit: Yes Status: Acute Multifactorial, severe hypoxia, severe bradycardia Underlying obesity hypoventilation and cardiac issues Neurochecks, supportive care If no improvement CT head, and possible neurology consult --Hypotension; shock Current Visit: Yes Status: Acute Patient is on Levophed, titrate as tolerated Continue IV fluids -Acute on chronic hypoxic respiratory failure; requiring BiPAP Current Visit: Yes Status: Acute Continue oxygen titrate O2 sats more than 90% Continue BiPAP as needed Multifactorial obesity hypoventilation syndrome Obstructive sleep apnea, COPD, CHF Pulmonary following, cardiology evaluated in the past and signed off Treat the underlying cause --Acute exacerbation COPD (chronic obstructive pulmonary disease) Current Visit: Yes Status: Acute Oxygen titrate O2 sats to more than 90%, patient is requiring BiPAP most of the times Wean as tolerated, nebulizers, IV steroids, IV antibiotics, inhalation steroids --acute kidney injury /worsening renal function Vasomotor nephropathy ,gentle hydration, monitor renal function, avoid nephrotoxins, nephrology following -- Morbid obesity; BMI 104.4 Current Visit: Yes Status: Acute Patient needs to participate on professional weight reduction program when medically stable. Strongly recommend outpatient follow-up with bariatric surgeon upon discharge when stable. --Obesity hypoventilation syndrome; Supplemental oxygen and BiPAP --Obstructive sleep apnea; CPAP and BiPAP as needed -- Non-ST elevation PA (NSTEMI) Current Visit: Yes Status: Acute Cardiology evaluated, recommend medical management and signed off -- Acute exacerbation of CHF (congestive heart failure) Current Visit: Yes Status: Acute Fluid restriction. Maintain input output. Antifailure medications low-sodium diet Input output monitoring, cardiology following --hypothyroidism /new onset Current Visit: Yes Status: Acute Continue Synthroid, closely monitor Patient needs follow-up with field crop farming supervisor as outpatient upon DC -- Hypoglycemia/present on admission Current Visit: Yes Status: Acute Now resolved closely monitor blood sugars -- Lymphedema of the abdominal wall Due to morbid obesity, supportive care fluid restriction Low-sodium diet --Anemia of chronic disease; Closely monitor H&H, transfuse as needed --Acute transaminitis acute liver failure Acute transaminitis; LFTs trending down Hepatocellular pattern, multifactorial NAFLD, congestive hepatopathy, DILI, GI evaluation and recommendations noted, LFTs trending down -- hypertension Current Visit: Yes Status: Acute Plan to address problem: We will continue the home medication. Hydralazine 10 mg IV every 6 hours as needed. We will monitor the blood pressure closely -- DVT prophylaxis Current Visit: No Status: Acute Plan to address problem: Heparin 5000 units subcu every 8 hours for DVT prophylaxis. Pepcid 20 mg p.o. twice daily for GI prophylaxis. Patient is a full code Also monitor the patient and adjust management as needed We will closely monitor the patient and adjust management as needed Total critical care time 60 minutes The high probability of a clinically significant, sudden or life threatening deterioration of the [multi] system(s) required my full and direct attention, intervention and personal management. The aggregate critical care time was [60] minutes. This time is in addition to time spent performing reported procedures but includes the following: [x] Data Review and interpretation [x] Patient assessment and monitoring of vital signs [x] Documentation [x] Medication orders and management Daily Hospital course; 04/09 -Patient is on heparin drip for non-STEMI, cardiology is following. -Patient is off Lasix and SUNG inhibitors because of GILBERTO. -Kidney function is worsening overnight and I put a consult for nephrology. -Patient is hypotensive and blood pressure from this morning was 101/41. We will continue to monitor. And if it is dropping we we will give him fluid. -Echo was done and EF of 50 to 55%. Diastolic dysfunction is indeterminate. Management per cardiology -Patient has COPD continues on dexamethasone, nebulizer treatment as needed. -Patient has hyponatremia and hyperkalemia. I give the patient Kayexalate. Monitor electrolytes. Will follow nephrology for additional recommendation. 04/10 -Renal function is worsening, nephrology is following -Blood pressure is better today -Hyperkalemia; I added Kayexalate -Morbid obesity 04/11 -Slight improvement in creatinine. Hyponatremia worsened. Nephrology is following and put the patient back on Lasix. -Blood PRESSURE IS BETTER today -Potassium this morning was 5.8, I ordered 60 g of Kayexalate -Morbidly obese -Obesity hypoventilation syndrome 04/12 -Creatinine is improving and this morning was 2.4 -Hyponatremia improved this morning was 134. Patient is on Lasix -Blood pressure is better -Patient is on 10 L of oxygen; worsened -Morbidly obese, CLAUDIA 04/13: Follow ordered ultrasound of abdomen, per Physician unable to get CT. I ordered an ABG due to my concern about her breathing pattern this morning, patient may benefit from. Will try to establish if patient has a primary pulmonary doctor. ABG is showing consistent with Respiratory Acidosis. Will place on BIPAP now. May need to transfer to [facility] for closer monitoring. Patient likely with Obesity Hypoventilation syndrome. cardiology work up, ongoing. RENAL SHOWING SOME IMPROVEMENT Guarded prognosis 04/14: Patient seen and examined today identified some lesion under the pannus will obtain wound care and wound surgeon evaluation. Nephrology input noted continue diuresis and stop the sodium tabs creatinine is stable. I did discuss with the family and updated them. We will continue to hold SUNG and ARB and if pressures continue to drop may need to hold diuresis also despite as written above. Monitor labs including H&H. She is more awake review of ABG shows improving CO2. Will discuss with case management as patient may need BiPAP on discharge home. I also updated the family 04/15: Patient showing some clinical improvement. Liver enzymes is showing mild improvement although bilirubin increased slightly. GI input noted and as discussed by his notes below "Abnormal liver enzymes in hepatocellular pattern. broad ddx and likely multifactorial causes including NAFLD, congestive hepatopathy, possibly DILI. will check viral hep serologies. US with limited views, possible coarsening of the liver" Patient also evaluated by surgery noted with the lymphedema of abdominal wall and open wound of the abdominal wall without penetration into the abdominal cavity with recommendation to pack the wounds daily with mesalt. Need to maintain dry environment discussed with nursing staff. Elevate the pannus and optimize nutrition for which I will get nutritional consult. No surgical intervention at this time. Patient is bedbound when I asked when last she ambulated she said while "I guess he has not worked" but it has been a while. Unfortunately the LTAC center unwilling to accept the patient will discuss with pulmonary and with case management about obtaining BiPAP for this patient and possible SNF referral. 04/16: Patient this morning and was noted significantly lethargic and unresp onsive respiratory and a code to be called. The patient resuscitated without any invasive procedure. ABG was obtained showed a CO2 of 142. Despite using BiPAP for some time through the night, sure how long she used it for. I have discontinued all IV opioids and recommend no IV opioids for this patient at this time. I also discontinued p.o. medications as an essential medication and change to IV. We will repeat an ABG in an hour to see if there is some improvement. Patient remains at high risk for possible intubation. Clinical condition is guarded 04/17: Patient remains on BiPAP this am, has some intermittent twitching, will check EEG, not likely seizure, but will monitor. Continue current management , check Albumin and Pre-Albumin level. Remains critically ill. Liver status showing improvement. 04/18: Patient with elevated D-dimer unfortunately size precludes being able to have a CTA chest done here to rule out pulmonary embolism. Doppler of lower extremities is pending. We will continue subcu anticoagulation with heparin at this time. Until Doppler is resolved. Patient is not hypoxic so doubt pulmonary embolism at this time. Her problem remains hypercapnia. I did take time to go over her history while she has been around hospital in the past and noticed a remarkable increase in her BMI from the last 2 years. Discussed with the trust and estates paralegal will agree to check thyroid function test. Critical care time 35- minute 04/19: Patient with hypothyroidism, while she does not appear to be with myxedema coma at this time. Will initiate levothyroxine as I believe that this will make profound impact her management at this time, continue BiPAP continue current management. Seroquel was added by pulmonary for delirium and agitation management, Ventimask during the day and BiPAP at night 04/20: Continue levothyroine, can change to PO in am. Will obtain Psych consult, she is clinically stable and will transfer to floor 04/21; levothyroxine changed to 100 mg p.o. daily Data Warehouse Specialist recommendations noted and appreciated Monitor LFTs 04/22; patient continues to be hypoxemic on continuous BiPAP Consultants and recommendations noted and appreciated Continue current management 04/23; patient has intermittent hallucination, psych following Patient is currently on nasal cannula oxygen, refusing BiPAP Mild distress and confused 04/24; possible discharge tomorrow With home health, home oxygen Discussed with licensing analyst 04/25; patient went into metabolic encephalopathy, sudden altered level of consciousness and hypotension Was transferred to ICU last night, started on Levophed Drip patient is severely lethargic and hypoxic on BiPAP and she is in shock on Levophed, critically ill History Interval history: Last night nurse found the patient to be unresponsive to verbal stimuli and not able to be aroused, code met was called, patient was found to be hypotensive and was transferred to ICU and placed on Levophed . I have seen and examined the patient in ICU this morning, patient tests and reports, medications reviewed Patient has been lethargic, minimally communicative remains hypotensive today on Levophed Morbidly obese BMI of 104.4 Hospitalist Physical - Constitutional Vitals: Temp Pulse Resp BP Pulse Ox 102.9 F H 97 H 27 H 66/34 98 04/25/21 02:48 04/25/21 09:00 04/25/21 09:00 04/25/21 06:00 04/25/21 09:00 General appearance: Present: mild distress, well-nourished, obese (Morbidly obese), other (Minimally communicative) - EENT Eyes: Present: PERRL, EOM intact - Neck Neck: Present: supple, normal ROM - Respiratory Respiratory effort: labored Respiratory: bilateral: diminished, rhonchi, negative: rales, wheezing - Cardiovascular Rhythm: regular Heart Sounds: Present: S1 & S2 - Extremities Extremities: no ischemia Extremity abnormal: edema - Abdominal General gastrointestinal: soft, non-tender, non-distended, normal bowel sounds - Integumentary Integumentary: Present: clear, warm - Psychiatric Psychiatric: other (Altered level of consciousness, lethargy) - Neurologic Neurologic: moves all extremities HEART Score - HEART Score Troponin: Troponin T 0.078 ng/mL (0.00-0.029) H D 04/08/21 13:03 Results - Labs CBC & Chem 7: 04/25/21 10:35 04/25/21 17:14 Labs: Laboratory Last Values WBC 11.6 K/mm3 (4.5-11.0) H 04/23/21 02:51 RBC 3.79 M/mm3 (3.65-5.03) 04/23/21 02:51 Hgb 7.9 gm/dl (10.1-14.3) L 04/23/21 02:51 Hct 27.2 % (30.3-42.9) L 04/23/21 02:51 MCV 72 fl (79-97) L 04/23/21 02:51 MCH 21 pg (28-32) L 04/23/21 02:51 MCHC 29 % (30-34) L 04/23/21 02:51 RDW 25.8 % (13.2-15.2) H 04/23/21 02:51 Plt Count 118 K/mm3 (140-440) L 04/23/21 02:51 Add Manual Diff Complete 04/23/21 02:51 Total Counted 100 04/23/21 02:51 Seg Neuts % (Manual) 91.0 % (40.0-70.0) H 04/23/21 02:51 Band Neutrophils % 2.0 % 04/23/21 02:51 Lymphocytes % (Manual) 4.0 % (13.4-35.0) L 04/23/21 02:51 Reactive Lymphs % (Man) 1.0 % 04/12/21 14:11 Monocytes % (Manual) 3.0 % (0.0-7.3) 04/23/21 02:51 Metamyelocytes % 2.0 % 04/12/21 14:11 Myelocytes % 2.0 % 04/08/21 04:03 Nucleated RBC % Not Reportable 04/23/21 02:51 Seg Neutrophils # Man 10.6 K/mm3 (1.8-7.7) H 04/23/21 02:51 Band Neutrophils # 0.2 K/mm3 04/23/21 02:51 Lymphocytes # (Manual) 0.5 K/mm3 (1.2-5.4) L 04/23/21 02:51 Abs React Lymphs (Man) 0.0 K/mm3 04/23/21 02:51 Monocytes # (Manual) 0.3 K/mm3 (0.0-0.8) 04/23/21 02:51 Eosinophils # (Manual) 0.0 K/mm3 (0.0-0.4) 04/23/21 02:51 Basophils # (Manual) 0.0 K/mm3 (0.0-0.1) 04/23/21 02:51 Metamyelocytes # 0.0 K/mm3 04/23/21 02:51 Myelocytes # 0.0 K/mm3 04/23/21 02:51 Promyelocytes # 0.0 K/mm3 04/23/21 02:51 Blast Cells # 0.0 K/mm3 04/23/21 02:51 WBC Morphology Not Reportable 04/23/21 02:51 Hypersegmented Neuts Not Reportable 04/23/21 02:51 Hyposegmented Neuts Not Reportable 04/23/21 02:51 Hypogranular Neuts Not Reportable 04/23/21 02:51 Smudge Cells Not Reportable 04/23/21 02:51 Toxic Granulation Not Reportable 04/23/21 02:51 Toxic Vacuolation Not Reportable 04/23/21 02:51 Dohle Bodies Not Reportable 04/23/21 02:51 Pelger-Huet Anomaly Not Reportable 04/23/21 02:51 Ana Cristina Rods Not Reportable 04/23/21 02:51 Platelet Estimate Not Reportable 04/23/21 02:51 Clumped Platelets Not Reportable 04/23/21 02:51 Plt Clumps, EDTA Not Reportable 04/23/21 02:51 Large Platelets Not Reportable 04/23/21 02:51 Giant Platelets Not Reportable 04/23/21 02:51 Platelet Satelliting Not Reportable 04/23/21 02:51 Plt Morphology Comment Not Reportable 04/23/21 02:51 RBC Morphology Not Reportable 04/23/21 02:51 Dimorphic RBCs Yes 04/23/21 02:51 Polychromasia Few 04/23/21 02:51 Hypochromasia 2+ 04/23/21 02:51 Poikilocytosis Not Reportable 04/23/21 02:51 Anisocytosis 2+ 04/23/21 02:51 Microcytosis Not Reportable 04/23/21 02:51 Macrocytosis Not Reportable 04/23/21 02:51 Spherocytes Not Reportable 04/23/21 02:51 Pappenheimer Bodies Not Reportable 04/23/21 02:51 Sickle Cells Not Reportable 04/23/21 02:51 Target Cells Few 04/23/21 02:51 Tear Drop Cells Not Reportable 04/23/21 02:51 Ovalocytes Few 04/23/21 02:51 Helmet Cells Not Reportable 04/23/21 02:51 [place] Bodies Not Reportable 04/23/21 02:51 Norris Rings Not Reportable 04/23/21 02:51 Sara Cells Not Reportable 04/23/21 02:51 Bite Cells Not Reportable 04/23/21 02:51 Crenated Cell Not Reportable 04/23/21 02:51 Elliptocytes Not Reportable 04/23/21 02:51 Acanthocytes (Spur) Not Reportable 04/23/21 02:51 Rouleaux Not Reportable 04/23/21 02:51 Hemoglobin C Crystals Not Reportable 04/23/21 02:51 Schistocytes Not Reportable 04/23/21 02:51 Malaria parasites Not Reportable 04/23/21 02:51 Tyshawn Bodies Not Reportable 04/23/21 02:51 Hem Pathologist Commnt No 04/23/21 02:51 PT 18.7 Sec. (12.2-14.9) H 04/18/21 16:55 INR 1.51 (0.87-1.13) H 04/18/21 16:55 APTT 25.2 Sec. (24.2-36.6) 04/18/21 16:55 D-Dimer 5410.10 ng/mlDDU (0-234) H 04/17/21 16:03 ABG pH 7.382 (7.320-7.450) 04/18/21 14:19 POC ABG pCO2 67.4 mmHg (32.0-48.0) H 04/18/21 14:19 ABG pCO2 86.9 mm Hg 04/13/21 18:40 POC ABG pO2 150.6 mmHg (83-108) H 04/18/21 14:19 ABG pO2 81.8 mm Hg (80.0-90.0) 04/13/21 18:40 POC ABG HCO3 39.2 04/18/21 14:19 ABG HCO3 36.2 mmol/L (20.0-26.0) H 04/13/21 18:40 ABG O2 Saturation 99.4 (0-100) 04/18/21 14:19 ABG O2 Content 10.4 (0.0-44) 04/13/21 18:40 POC ABG Base Excess 12.2 04/18/21 14:19 ABG Base Excess 7.4 mmol/L (-2.0-3.0) H 04/13/21 18:40 ABG Hemoglobin 9.3 (12.0-17.5) L 04/18/21 14:19 ABG Oxyhemoglobin 97.5 (94-98) 04/18/21 14:19 ABG Carboxyhemoglobin 1.9 % (0.0-5.0) 04/13/21 18:40 ABG Methemoglobin 0.3 (0.0-1.5) 04/18/21 14:19 ABG Sodium 143.0 mmol/L (136.0-145.0) 04/18/21 14:19 ABG Potassium 4.2 mmol/L (3.40-4.50) 04/18/21 14:19 ABG Chloride 98.0 mmol/L (98-107) 04/18/21 14:19 ABG Glucose 162 mg/dL (65-95) H 04/18/21 14:19 Oxyhemoglobin 93.7 % (95.0-99.0) L 04/13/21 18:40 Carboxyhemoglobin 1.6 (0.5-1.5) H 04/18/21 14:19 FiO2 30 % 04/13/21 18:40 FiO2 % 35.0 04/18/21 14:19 Sodium 153 mmol/L (137-145) H 04/23/21 00:54 Potassium 4.9 mmol/L (3.6-5.0) 04/23/21 00:54 Chloride 106.4 mmol/L (98-107) 04/23/21 00:54 Carbon Dioxide 38 mmol/L (22-30) H 04/23/21 00:54 Anion Gap 14 mmol/L 04/23/21 00:54 BUN 74 mg/dL (7-17) H 04/23/21 00:54 Creatinine 1.3 mg/dL (0.6-1.2) H 04/23/21 00:54 Estimated GFR 57 ml/min 04/23/21 00:54 BUN/Creatinine Ratio 57 % 04/23/21 00:54 Glucose 205 mg/dL (65-100) H 04/23/21 00:54 POC Glucose 127 mg/dL (70-105) H 04/24/21 23:23 Osmolality 301 Mosm/kg 04/09/21 23:15 Calcium 9.4 mg/dL (8.4-10.2) 04/23/21 00:54 Ionized Calcium 3.6 mg/dL (4.8-5.6) L 04/09/21 23:15 Magnesium 2.10 mg/dL (1.7-2.3) 04/23/21 00:54 Total Bilirubin 1.40 mg/dL (0.1-1.2) H 04/23/21 00:54 Direct Bilirubin 0.8 mg/dL (0-0.2) H 04/23/21 00:54 Indirect Bilirubin 0.6 mg/dL 04/23/21 00:54 AST 36 units/L (5-40) 04/23/21 00:54 ALT 133 units/L (7-56) H 04/23/21 00:54 Alkaline Phosphatase 60 units/L (35-129) 04/23/21 00:54 Total Creatine Kinase 1712 units/L (30-135) H 04/10/21 10:04 Troponin T 0.078 ng/mL (0.00-0.029) H D 04/08/21 13:03 NT-Pro-B Natriuret Pep 7573 pg/mL (0-450) H 04/07/21 22:04 Total Protein 8.4 g/dL (6.3-8.2) H 04/23/21 00:54 Albumin 3.2 g/dL (3.9-5) L 04/23/21 00:54 Albumin/Globulin Ratio 0.6 % 04/23/21 00:54 Triglycerides 105 mg/dL (2-149) 04/07/21 22:04 Cholesterol 85 mg/dL (50-199) 04/07/21 22:04 LDL Cholesterol Direct 47 mg/dL (50-130) L 04/07/21 22:04 HDL Cholesterol 25 mg/dL (40-59) L 04/07/21 22:04 Cholesterol/HDL Ratio 3.40 % 04/07/21 22:04 TSH 6.140 mlU/mL (0.270-4.200) H 04/18/21 19:55 Free T4 0.67 ng/dL (0.76-1.46) L 04/18/21 19:55 Total Cortisol 41.3 mcg/dL () 04/10/21 10:04 Arterial Blood Glucose 162 mg/dL (65-95) H 04/18/21 14:19 Arterial Blood Ionized Calcium 4.6 mg/dL (4.6-5.3) 04/16/21 07:32 Urine Osmolality 157 Mosm/kg 04/09/21 18:46 Urine Sodium 16 mmol/L 04/09/21 18:46 Coronavirus (PCR) Negative (Negative) 04/14/21 Unknown Hepatitis A IgM Ab Non-reactive (NonReactive) 04/14/21 18:45 Hep Bs Antigen Nonreactive (Negative) 04/14/21 18:45 Hepatitis C Antibody Non-reactive (NonReactive) 04/14/21 18:45 Zambrano/IV: Voiding Method Indwelling Catheter Active Medications - Current Medications Current Medications: Generic Name Dose Route Start Last Admin Trade Name Freq PRN Reason Stop Dose Admin Acetaminophen 650 mg 04/08/21 03:00 04/17/21 06:42 Acetaminophen 325 Mg Tab PO 650 mg Q4H PRN Administration Pain MILD(1-3)/Fever >100.5/BROWN Albuterol 2.5 mg 04/08/21 03:00 Albuterol 2.5 Mg/3 Ml Nebu IH Q4HRT PRN Shortness Of Breath Albuterol/Ipratropium 1 ampul 04/08/21 08:00 04/25/21 08:57 Ipratropium/Albuterol Sulfate 3 Ml Ampul.Neb IH 1 ampul TIDRT EKATERINA Administration Aspirin 325 mg 04/09/21 10:00 04/25/21 10:28 Aspirin Ec 325 Mg Tab PO Not Given QDAY EKATERINA Atorvastatin Calcium 40 mg 04/08/21 22:00 04/24/21 22:53 Atorvastatin 40 Mg Tab PO Not Given QHS EKATERINA Benzonatate 100 mg 04/08/21 06:00 04/25/21 10:28 Benzonatate 100 Mg Cap PO Not Given Q8HR EKATERINA Guaifenesin 200 mg 04/12/21 14:47 04/17/21 06:43 Guaifenesin 100 Mg/5 Ml Oral Liqd PO 200 mg Q4H PRN Administration Cough Haloperidol Lactate 5 mg 04/18/21 16:27 04/21/21 03:30 Haloperidol Lactate 5 Mg/1 Ml Inj IV 5 mg Q6H PRN Administration Agitation Heparin Sodium (Porcine) 5,000 unit 04/18/21 14:00 04/25/21 05:13 Heparin 5,000 Unit/1 Ml Vial SUB-Q 5,000 unit Q8HR EKATERINA Administration Hydralazine HCl 10 mg 04/19/21 17:25 04/22/21 08:54 Hydralazine 20 Mg/1 Ml Inj IV 10 mg Q6H PRN Administration Blood Pressure Dextrose 1,000 mls @ 100 mls/hr 04/24/21 21:46 04/25/21 04:04 D5w IV 100 mls/hr DIRECT EKATERINA Administration Norepinephrine 4 mg in 250 mls @ 37.5 mls/hr 04/24/21 20:41 04/25/21 10:32 Levophed Drip 4 Mg/Ns 250 Ml IV 4 mcg/min TITR EKATERINA 15 mls/hr Administration Protocol 10 MCG/MIN Levothyroxine Sodium 100 mcg 04/22/21 06:00 04/25/21 10:29 Levothyroxine 100 Mcg Tab PO Not Given DAILY@0600 EKATERINA Methylprednisolone Sodium Succinate 20 mg 04/16/21 10:00 04/25/21 10:26 Methylprednisolone Sod Succinate 40 Mg/1 Ml Inj IV 20 mg Q12HR EKATERINA Administration Nitroglycerin 0.4 mg 04/08/21 03:00 Nitroglycerin 0.4 Mg Tab Subl SL Q5M PRN Chest Pain Nystatin 1 applic 04/08/21 18:00 04/25/21 10:27 Nystatin Powder 15 Gm TP 1 applic BID EKATERINA Administration Ondansetron HCl 4 mg 04/08/21 03:00 04/15/21 23:51 Ondansetron 4 Mg/2 Ml Inj IV 4 mg Q8H PRN Administration Nausea And Vomiting Oxycodone/Acetaminophen 1 tab 04/08/21 03:00 04/21/21 16:26 Oxycodone /Acetaminophen 5-325mg Tab PO 1 tab Q6H PRN Administration Pain, Moderate (4-6) Pantoprazole Sodium 40 mg 04/23/21 07:30 04/25/21 08:00 Pantoprazole 40 Mg Tab PO Not Given QDAC EKATERINA Quetiapine Fumarate 75 mg 04/18/21 22:00 04/24/21 21:46 Quetiapine 25 Mg Tab PO Not Given QHS EKATERINA Sodium Chloride 10 ml 04/08/21 10:00 04/25/21 10:27 Sodium Chloride 0.9% 10 Ml Flush Syringe IV 10 ml BID EKATERINA Administration Sodium Chloride 10 ml 04/08/21 03:00 04/24/21 20:43 Sodium Chloride 0.9% 10 Ml Flush Syringe IV 10 ml PRN PRN Administration LINE FLUSH Tramadol HCl 50 mg 04/08/21 03:00 04/20/21 21:50 Tramadol 50 Mg Tab PO 50 mg Q6H PRN Administration Pain, Moderate (4-6) Nutrition/Malnutrition Assess - Dietary Evaluation Nutrition/Malnutrition Findings: Nutrition Notes Start: 04/08/21 14:21 Freq: Status: Active Protocol: Document 04/20/21 15:55 MARIELY (Rec: 04/20/21 16:53 MARIELY [email or web address]) Nutrition Notes Need for Assessment generated from: medicinal plant 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 Labs/Tests 04/20: Na 147, CO2 37, BUN 74, Cr 1.3, Glu 193. Pertinent Medications Reviewed. Height 5 ft 4 in Weight 277.3 kg Leopold Body Weight (kg) 54.54 BMI 104.9 Intake Prior to Admission Good Weight change and time frame expect weight fluctuations r/t fluid therapy, CHF complications Weight Status Morbidly Obese Subjective/Other Information Pt developed accute renal condition that requires support from Renal Diet. Percent of energy/protein needs met: Renal diet provides all energy /protein needs (2072 Kcal/77 g ) per day. Burn Absent Trauma Absent GI Symptoms None Food Allergy No Skin Integrity/Comment Integumentary: clear, warm, dry. Current % PO Good (75-100%) Minimum of two criteria No physical signs of malnutrition #1 Nutrition Diagnosis Altered nutrition-related laboratory values,Overweight/ obesity Comments: Pt developed accute renal condition that requires support from Renal Diet. Etiology Accute Kidney Injury resulted from complications from concomitant conditions As Evidenced by Signs and Symptoms Altered lab values and MD diagnosis Diagnosis Progress(for reassessment Worsened documentation) Is patient on ventilator? No Is Patient Ambulatory and/or Out of Bed Yes REE-([place]-St. Jeor-ambulatory/OOB) [ 8653.900 [id number]] Kcal/Kg value to use for calculation 10 Approximate Energy Requirements Using 2773 kcal/Kg Calculation Used for Recommendations Kcal/Kg of IBW Additional Notes Protein 1.0 g/Kg; 55 g/day; 220 Kcal/day (from IBW). Fluids: 1ml/kcal or per MD Nutrition Intervention Change Diet Order: Continue Renal Diet as MD prescribed. Teaching Recipient Patient Learning Readiness Good Teaching Methods Discussion Response to Teaching Verbalize understanding, Reinforcement needed Barriers to Learning Motivation,Emotional,Social Patient aware of follow up options Yes Actions To Overcome Barriers Collaboration with Other Providers Goal #1 Achieve and maintain acceptable chemistry lab values during LOS Goal #2 Support Improvement in renal functions while providing energy/protein needs during LOS Follow-Up By: 04/27/21 Additional Comments Continue monitoring % of food intake and tolerance, and BM. Reinforce education towards bariatric therapy after accute kidney injury is solved.
[2021-04-25 11:35] LABS: Hemoglobin 9.2 gm/dl (10.1-14.3)
[2021-04-25 11:36] LABS: Hematocrit 33.5 % (30.3-42.9); Platelet Count 65 K/mm3 (140-440); Red Cell Distribution Width 26.9 % (13.2-15.2)
[2021-04-25 11:41] LABS: Band Neutrophils # (Manual) 0.3 K/mm3; Total Cells Counted 100
[2021-04-25 11:42] LABS: Anisocytosis 2+; Target Cells 1+
[2021-04-25 11:43] LABS: Hypochromasia 1+; Poikilocytosis 1+
[2021-04-25] MEDS: VALPROATE SODIUM 500 MG in SODIUM CHLORIDE 0.9% 100 ML IV SCH (11:58)
--- NOTE | 2021-04-25 15:40 | Progress Note ---
Assessment and Plan 35 years old female with history of morbid obesity, hypertension, asthma , sleep apnea was brought to the emergency room because of shortness of breath, edema, generalized malaise, fatigue, and weakness for last couple of days. She states she just does not feel well. She has a headache. She states her legs are swollen. She feels as though she is retaining fluid. She states that she went to her regular doctors on the . They tested her for Covid. It was negative. She was told to go see a environmental monitoring technician. She is not seen a car diologist as of yet. She came in here because she was not feeling well and did not know what to do. She has had no sick contacts. Patient transfered to [facility]. Patient is on nor epinephrine. Patient is awake. Resting on 4L O2. O2 saturation 99%. BIPAP 20/8, rate 30, FIO2 40% and stand-by in the room. Patient running low grade temp. Has leukocytosis. Blood pressure 66/34, Pulse 104 ABG ABG pH 7.287 (7.320-7.450) L 04/24/21 22:28 POC ABG pCO2 66.3 mmHg (32.0-48.0) H 04/24/21 22:28 ABG pCO2 86.9 mm Hg 04/13/21 18:40 POC ABG pO2 69.5 mmHg (83-108) L 04/24/21 22:28 ABG pO2 81.8 mm Hg (80.0-90.0) 04/13/21 18:40 POC ABG HCO3 30.9 04/24/21 22:28 ABG O2 Saturation 90.8 (0-100) 04/24/21 22:28 Patients D dimer 04/17/21 : 5410.10 Patient presently on albuterol/atrovent aerosol treatments q 6 hours, subcutaneous Heparin, Protonix, and I/V SoluMedrol and norepinephrine. I spent critical care time of 35 minutes, review the chart, examine the patient, review chest xray, lab results, talking to the nursing staff and respiratory therapy and work up plan of treatment in this critically ill morbidly Obese patient. - Patient Problems (1) Acute respiratory failure with hypoxia and hypercapnia Current Visit: Yes Status: Acute Plan to address problem: On 4L O2 Saturation 99%. BIPAP 20/8, rate 30, FIO2 40%. Stand-by. Albuterol/atrovent aerosol treatments. Continue Solumedrol Contibue S/C Heparin. Continue Protonix (2) Acute exacerbation of CHF (congestive heart failure) Current Visit: Yes Status: Acute Plan to address problem: Management as per cardiology. (3) Hypertension Current Visit: Yes Status: Acute Plan to address problem: Management as per primary care. (4) Morbid obesity with BMI of 70 and over, adult Current Visit: No Status: Acute Plan to address problem: Weight reduction diet. Mobility protocol Fall precautions. (5) Obesity hypoventilation syndrome Current Visit: No Status: Acute Plan to address problem: BIPAP 20/8, rate 30, FIO2 40%. (6) Sleep apnea Current Visit: No Status: Acute Plan to address problem: BIPAP 20/8, rate 30, FIO2 40%. Sleep study if she can as out patient. (7) Hypotension Current Visit: Yes Status: Acute Plan to address problem: Patient is on Nor epinephrine. Continue titrate ( Increase Dose) until mAP reached to 65. Subjective Date of service: 04/25/21 Principal diagnosis: Ac hypoxemic and hypercapnic resp failure; AE-CHF; Morbid obesity; CLAUDIA/OHS Interval history: 35 years old female with history of morbid obesity, hypertension, asthma COPD sleep apnea was brought to the emergency room because of shortness of breath, edema, generalized malaise, fatigue, and weakness for last couple of days. She states she just does not feel well. She has a headache. She states her legs are swollen. She feels as though she is retaining fluid. She states that she went to her regular doctors on the . They tested her for Covid. It was negative. She was told to go see a environmental monitoring technician. She is not seen a environmental monitoring technician as of yet. She came in here because she was not feeling well and did not know what to do. She has had no sick contacts. Patient transfered to [facility]. Patient is on nor epinephrine. Patient is awake. Resting on 4L O2. O2 saturation 99%. BIPAP 20/8, rate 30, FIO2 40% and stand-by in the room. Patient running low grade temp. Has leukocytosis. Blood pressure 66/34, Pulse 104 ABG ABG pH 7.287 (7.320-7.450) L 04/24/21 22:28 POC ABG pCO2 66.3 mmHg (32.0-48.0) H 04/24/21 22:28 ABG pCO2 86.9 mm Hg 04/13/21 18:40 POC ABG pO2 69.5 mmHg (83-108) L 04/24/21 22:28 ABG pO2 81.8 mm Hg (80.0-90.0) 04/13/21 18:40 POC ABG HCO3 30.9 04/24/21 22: ABG O2 Saturation 90.8 (0-100) 04/24/21 22:28 Patients D dimer 04/17/21 : 5410.10 Patient presently on albuterol/atrovent aerosol treatments q 6 hours, subcutaneous Heparin, Protonix, and I/V SoluMedrol and norepinephrine. Objective Vital Signs - 12hr 04/25/21 04/25/21 04/25/21 04:00 04:05 04:13 Temperature Pulse Rate 91 H 98 H Pulse Rate [ Anterior Bilateral Throughout] Respiratory 12 15 Rate Respiratory Rate [Anterior Bilateral Throughout] Respiratory 20 Rate [Left Abdomen] Blood Pressure 93/58 93/58 O2 Sat by Pulse 100 100 Oximetry 04/25/21 04/25/21 04/25/21 05:00 05:05 06:00 Temperature Pulse Rate 103 H 104 H Pulse Rate [ Anterior Bilateral Throughout] Respiratory 15 18 Rate Respiratory Rate [Anterior Bilateral Throughout] Respiratory Rate [Left Abdomen] Blood Pressure 122/78 66/34 O2 Sat by Pulse 97 100 98 Oximetry 04/25/21 04/25/21 04/25/21 08:00 09:00 12:00 Temperature 100.4 F H 99.1 F Pulse Rate Pulse Rate [ 97 H Anterior Bilateral Throughout] Respiratory Rate Respiratory 27 H Rate [Anterior Bilateral Throughout] Respiratory Rate [Left Abdomen] Blood Pressure O2 Sat by Pulse 98 Oximetry Constitutional: no acute distress, alert, other (young extremely obese female with mildly increased respiratory effort at rest) Eyes: non-icteric ENT: oropharynx moist, other (BIPAP FFM) Neck: supple, no lymphadenopathy, no JVD Effort: mildly labored Ascultation: Bilateral: diminished breath sounds, rhonchi (scant) Percussion: Bilateral: not dull Cardiovascular: regular rate and rhythm Gastrointestinal: normoactive bowel sounds, soft, non-tender, non-distended (protuberant) Integumentary: rash (stasis dermatitis type), other (Stasis dermatititis on legs and abdomen; see [facility] notes for full details) Extremities: pulses normal, no ischemia or petechiae, edema, other (stasis dermatitis) Neurologic: non-focal exam (grossly), pupils equal and round, CN II-XII normal Psychiatric: depressed CBC and BMP: 04/25/21 10:35 04/23/21 00:54 ABG, PT/INR, D-dimer: ABG ABG pH 7.287 (7.320-7.450) L 04/24/21 22:28 POC ABG pCO2 66.3 mmHg (32.0-48.0) H 04/24/21 22:28 ABG pCO2 86.9 mm Hg 04/13/21 18:40 POC ABG pO2 69.5 mmHg (83-108) L 04/24/21 22:28 ABG pO2 81.8 mm Hg (80.0-90.0) 04/13/21 18:40 POC ABG HCO3 30.9 04/24/21 22:28 ABG O2 Saturation 90.8 (0-100) 04/24/21 22:28 PT/INR, D-dimer PT 18.7 Sec. (12.2-14.9) H 04/18/21 16:55 INR 1.51 (0.87-1.13) H 04/18/21 16:55 D-Dimer 5410.10 ng/mlDDU (0-234) H 04/17/21 16:03 Abnormal lab findings: Abnormal Labs 04/07/21 04/07/21 04/08/21 22:04 22:04 00:18 WBC 17.7 H Hgb 9.1 L Hct MCV 77 L MCH 21 L MCHC 27 L RDW 24.3 H Plt Count Seg Neuts % (Manual) Lymphocytes % (Manual) Nucleated RBC % Seg Neutrophils # Man Lymphocytes # (Manual) Monocytes # (Manual) PT INR D-Dimer ABG pH POC ABG pCO2 POC ABG pO2 ABG pO2 ABG HCO3 ABG Base Excess ABG Hemoglobin ABG Oxyhemoglobin ABG Sodium ABG Potassium ABG Chloride ABG Glucose Oxyhemoglobin Carboxyhemoglobin Sodium 135 L Potassium Chloride 91.0 L Carbon Dioxide 17 L BUN Creatinine 1.4 H Glucose 55 L POC Glucose 49 L Calcium Ionized Calcium Total Bilirubin Direct Bilirubin AST ALT Total Creatine Kinase Troponin T 0.043 H NT-Pro-B Natriuret Pep 7573 H Total Protein Albumin LDL Cholesterol Direct 47 L HDL Cholesterol 25 L TSH Free T4 Arterial Blood Glucose 04/08/21 04/08/21 04/08/21 04:03 04:03 09:22 WBC 24.3 H Hgb 9.3 L Hct MCV 74 L MCH 21 L MCHC 29 L RDW 23.1 H Plt Count Seg Neuts % (Manual) 78.0 H Lymphocytes % (Manual) 7.0 L Nucleated RBC % 1.0 H Seg Neutrophils # Man 19.0 H Lymphocytes # (Manual) Monocytes # (Manual) 1.0 H PT INR D-Dimer ABG pH POC ABG pCO2 POC ABG pO2 ABG pO2 ABG HCO3 ABG Base Excess ABG Hemoglobin ABG Oxyhemoglobin ABG Sodium ABG Potassium ABG Chloride ABG Glucose Oxyhemoglobin Carboxyhemoglobin Sodium 134 L Potassium Chloride 91.2 L Carbon Dioxide BUN Creatinine 1.8 H Glucose POC Glucose Calcium Ionized Calcium Total Bilirubin Direct Bilirubin AST ALT Total Creatine Kinase Troponin T 0.099 H NT-Pro-B Natriuret Pep Total Protein Albumin LDL Cholesterol Direct HDL Cholesterol TSH Free T4 Arterial Blood Glucose 04/08/21 04/08/21 04/09/21 13:03 20:28 04:52 WBC 20.9 H Hgb 8.5 L Hct 30.0 L MCV 73 L MCH 21 L MCHC 28 L RDW 23.9 H Plt Count Seg Neuts % (Manual) 77.0 H Lymphocytes % (Manual) 1.0 L Nucleated RBC % 1.0 H Seg Neutrophils # Man 16.1 H Lymphocytes # (Manual) 0.2 L Monocytes # (Manual) PT INR D-Dimer ABG pH POC ABG pCO2 POC ABG pO2 ABG pO2 ABG HCO3 ABG Base Excess ABG Hemoglobin ABG Oxyhemoglobin ABG Sodium ABG Potassium ABG Chloride ABG Glucose Oxyhemoglobin Carboxyhemoglobin Sodium Potassium Chloride Carbon Dioxide BUN Creatinine Glucose POC Glucose 115 H Calcium Ionized Calcium Total Bilirubin Direct Bilirubin AST ALT Total Creatine Kinase Troponin T 0.078 H D NT-Pro-B Natriuret Pep Total Protein Albumin LDL Cholesterol Direct HDL Cholesterol TSH Free T4 Arterial Blood Glucose 09/04/09/21 04/09/21 04:52 08:46 11:50 WBC Hgb Hct MCV MCH MCHC RDW Plt Count Seg Neuts % (Manual) Lymphocytes % (Manual) Nucleated RBC % Seg Neutrophils # Man Lymphocytes # (Manual) Monocytes # (Manual) PT INR D-Dimer ABG pH POC ABG pCO2 POC ABG pO2 ABG pO2 ABG HCO3 ABG Base Excess ABG Hemoglobin ABG Oxyhemoglobin ABG Sodium ABG Potassium ABG Chloride ABG Glucose Oxyhemoglobin Carboxyhemoglobin Sodium 129 L Potassium 5.6 H Chloride 88.6 L Carbon Dioxide BUN 27 H Creatinine 2.4 H Glucose 121 H POC Glucose 139 H 156 H Calcium 7.7 L Ionized Calcium Total Bilirubin Direct Bilirubin AST ALT Total Creatine Kinase Troponin T NT-Pro-B Natriuret Pep Total Protein Albumin LDL Cholesterol Direct HDL Cholesterol TSH Free T4 Arterial Blood Glucose 04/09/21 04/09/21 04/09/21 15:46 16:58 22:08 WBC Hgb Hct MCV MCH MCHC RDW Plt Count Seg Neuts % (Manual) Lymphocytes % (Manual) Nucleated RBC % Seg Neutrophils # Man Lymphocytes # (Manual) Monocytes # (Manual) PT INR D-Dimer ABG pH POC ABG pCO2 POC ABG pO2 ABG pO2 ABG HCO3 ABG Base Excess ABG Hemoglobin ABG Oxyhemoglobin ABG Sodium ABG Potassium ABG Chloride ABG Glucose Oxyhemoglobin Carboxyhemoglobin Sodium 128 L Potassium 5.5 H Chloride 88.1 L Carbon Dioxide BUN 33 H Creatinine 2.7 H Glucose 172 H POC Glucose 187 H 186 H Calcium 7.3 L Ionized Calcium Total Bilirubin Direct Bilirubin AST ALT Total Creatine Kinase Troponin T NT-Pro-B Natriuret Pep Total Protein Albumin LDL Cholesterol Direct HDL Cholesterol TSH Free T4 Arterial Blood Glucose 04/09/21 04/10/21 04/10/21 23:15 02:20 07:39 WBC Hgb Hct MCV MCH MCHC RDW Plt Count Seg Neuts % (Manual) Lymphocytes % (Manual) Nucleated RBC % Seg Neutrophils # Man Lymphocytes # (Manual) Monocytes # (Manual) PT INR D-Dimer ABG pH POC ABG pCO2 POC ABG pO2 ABG pO2 ABG HCO3 ABG Base Excess ABG Hemoglobin ABG Oxyhemoglobin ABG Sodium ABG Potassium ABG Chloride ABG Glucose Oxyhemoglobin Carboxyhemoglobin Sodium 128 L Potassium 5.2 H Chloride 88.6 L Carbon Dioxide BUN 39 H Creatinine 3.1 H Glucose 171 H POC Glucose 168 H Calcium 7.2 L Ionized Calcium 3.6 L Total Bilirubin Direct Bilirubin AST ALT Total Creatine Kinase Troponin T NT-Pro-B Natriuret Pep Total Protein Albumin LDL Cholesterol Direct HDL Cholesterol TSH Free T4 Arterial Blood Glucose 04/10/21 04/10/21 04/10/21 10:04 11:37 17:18 WBC Hgb Hct MCV MCH MCHC RDW Plt Count Seg Neuts % (Manual) Lymphocytes % (Manual) Nucleated RBC % Seg Neutrophils # Man Lymphocytes # (Manual) Monocytes # (Manual) PT INR D-Dimer ABG pH POC ABG pCO2 POC ABG pO2 ABG pO2 ABG HCO3 ABG Base Excess ABG Hemoglobin ABG Oxyhemoglobin ABG Sodium ABG Potassium ABG Chloride ABG Glucose Oxyhemoglobin Carboxyhemoglobin Sodium Potassium Chloride Carbon Dioxide BUN Creatinine Glucose POC Glucose 170 H 152 H Calcium Ionized Calcium Total Bilirubin Direct Bilirubin AST ALT Total Creatine Kinase 1712 H Troponin T NT-Pro-B Natriuret Pep Total Protein Albumin LDL Cholesterol Direct HDL Cholesterol TSH Free T4 Arterial Blood Glucose 04/10/21 04/10/21 04/11/21 19:38 22:02 05:48 WBC Hgb Hct MCV MCH MCHC RDW Plt Count Seg Neuts % (Manual) Lymphocytes % (Manual) Nucleated RBC % Seg Neutrophils # Man Lymphocytes # (Manual) Monocytes # (Manual) PT INR D-Dimer ABG pH POC ABG pCO2 POC ABG pO2 ABG pO2 ABG HCO3 ABG Base Excess ABG Hemoglobin ABG Oxyhemoglobin ABG Sodium ABG Potassium ABG Chloride ABG Glucose Oxyhemoglobin Carboxyhemoglobin Sodium 128 L 124 L Potassium 5.8 H D Chloride 89.6 L 89.4 L Carbon Dioxide BUN 47 H 53 H Creatinine 3.0 H 2.8 H Glucose 165 H 150 H POC Glucose 147 H Calcium 6.9 L 7.2 L Ionized Calcium Total Bilirubin Direct Bilirubin AST ALT Total Creatine Kinase Troponin T NT-Pro-B Natriuret Pep Total Protein Albumin LDL Cholesterol Direct HDL Cholesterol TSH Free T4 Arterial Blood Glucose 04/11/21 04/11/21 04/11/21 08:48 11:35 19:12 WBC Hgb Hct MCV MCH MCHC RDW Plt Count Seg Neuts % (Manual) Lymphocytes % (Manual) Nucleated RBC % Seg Neutrophils # Man Lymphocytes # (Manual) Monocytes # (Manual) PT INR D-Dimer ABG pH POC ABG pCO2 POC ABG pO2 ABG pO2 ABG HCO3 ABG Base Excess ABG Hemoglobin ABG Oxyhemoglobin ABG Sodium ABG Potassium ABG Chloride ABG Glucose Oxyhemoglobin Carboxyhemoglobin Sodium 128 L Potassium Chloride 89.7 L Carbon Dioxide BUN 53 H Creatinine 2.4 H Glucose 159 H POC Glucose 152 H 152 H Calcium 7.1 L Ionized Calcium Total Bilirubin Direct Bilirubin AST ALT Total Creatine Kinase Troponin T NT-Pro-B Natriuret Pep Total Protein Albumin LDL Cholesterol Direct HDL Cholesterol TSH Free T4 Arterial Blood Glucose 04/11/21 04/12/21 04/12/21 22:03 05:03 07:41 WBC Hgb Hct MCV MCH MCHC RDW Plt Count Seg Neuts % (Manual) Lymphocytes % (Manual) Nucleated RBC % Seg Neutrophils # Man Lymphocytes # (Manual) Monocytes # (Manual) PT INR D-Dimer ABG pH POC ABG pCO2 POC ABG pO2 ABG pO2 ABG HCO3 ABG Base Excess ABG Hemoglobin ABG Oxyhemoglobin ABG Sodium ABG Potassium ABG Chloride ABG Glucose Oxyhemoglobin Carboxyhemoglobin Sodium 134 L Potassium Chloride 92.9 L Carbon Dioxide 33 H D BUN 54 H Creatinine 2.4 H Glucose 150 H POC Glucose 152 H 144 H Calcium 7.2 L Ionized Calcium Total Bilirubin Direct Bilirubin AST ALT Total Creatine Kinase Troponin T NT-Pro-B Natriuret Pep Total Protein Albumin LDL Cholesterol Direct HDL Cholesterol TSH Free T4 Arterial Blood Glucose 04/12/21 04/12/21 04/12/21 11:38 14:11 17:02 WBC 14.7 H Hgb 8.7 L Hct 29.8 L MCV 74 L MCH 22 L MCHC 29 L RDW 24.9 H Plt Count Seg Neuts % (Manual) 86.0 H Lymphocytes % (Manual) 6.0 L Nucleated RBC % Seg Neutrophils # Man 12.6 H Lymphocytes # (Manual) 0.9 L Monocytes # (Manual) PT INR D-Dimer ABG pH POC ABG pCO2 POC ABG pO2 ABG pO2 ABG HCO3 ABG Base Excess ABG Hemoglobin ABG Oxyhemoglobin ABG Sodium ABG Potassium ABG Chloride ABG Glucose Oxyhemoglobin Carboxyhemoglobin Sodium Potassium Chloride Carbon Dioxide BUN Creatinine Glucose POC Glucose 151 H 154 H Calcium Ionized Calcium Total Bilirubin Direct Bilirubin AST ALT Total Creatine Kinase Troponin T NT-Pro-B Natriuret Pep Total Protein Albumin LDL Cholesterol Direct HDL Cholesterol TSH Free T4 Arterial Blood Glucose 04/12/21 04/13/21 04/13/21 23:14 05:03 10:00 WBC Hgb Hct MCV MCH MCHC RDW Plt Count Seg Neuts % (Manual) Lymphocytes % (Manual) Nucleated RBC % Seg Neutrophils # Man Lymphocytes # (Manual) Monocytes # (Manual) PT INR D-Dimer ABG pH 7.150 L* POC ABG pCO2 POC ABG pO2 ABG pO2 91.8 H ABG HCO3 37.2 H ABG Base Excess 7.1 H ABG Hemoglobin 7.1 L ABG Oxyhemoglobin ABG Sodium ABG Potassium ABG Chloride ABG Glucose Oxyhemoglobin 93.4 L Carboxyhemoglobin Sodium 134 L Potassium Chloride 91.3 L Carbon Dioxide 33 H BUN 63 H Creatinine 2.2 H Glucose 159 H POC Glucose 151 H Calcium 7.8 L Ionized Calcium Total Bilirubin Direct Bilirubin AST ALT Total Creatine Kinase Troponin T NT-Pro-B Natriuret Pep Total Protein Albumin LDL Cholesterol Direct HDL Cholesterol TSH Free T4 Arterial Blood Glucose 04/13/21 04/13/21 04/13/21 12:39 16:37 18:40 WBC Hgb Hct MCV MCH MCHC RDW Plt Count Seg Neuts % (Manual) Lymphocytes % (Manual) Nucleated RBC % Seg Neutrophils # Man Lymphocytes # (Manual) Monocytes # (Manual) PT INR D-Dimer ABG pH 7.237 L POC ABG pCO2 POC ABG pO2 ABG pO2 ABG HCO3 36.2 H ABG Base Excess 7.4 H ABG Hemoglobin 7.8 L ABG Oxyhemoglobin ABG Sodium ABG Potassium ABG Chloride ABG Glucose Oxyhemoglobin 93.7 L Carboxyhemoglobin Sodium Potassium Chloride Carbon Dioxide BUN Creatinine Glucose POC Glucose 140 H 132 H Calcium Ionized Calcium Total Bilirubin Direct Bilirubin AST ALT Total Creatine Kinase Troponin T NT-Pro-B Natriuret Pep Total Protein Albumin LDL Cholesterol Direct HDL Cholesterol TSH Free T4 Arterial Blood Glucose 04/13/21 04/14/21 04/14/21 23:55 04:27 04:27 WBC Hgb 8.5 L Hct 29.1 L MCV 72 L MCH 21 L MCHC 29 L RDW 24.9 H Plt Count Seg Neuts % (Manual) Lymphocytes % (Manual) Nucleated RBC % Seg Neutrophils # Man Lymphocytes # (Manual) Monocytes # (Manual) PT INR D-Dimer ABG pH POC ABG pCO2 POC ABG pO2 ABG pO2 ABG HCO3 ABG Base Excess ABG Hemoglobin ABG Oxyhemoglobin ABG Sodium ABG Potassium ABG Chloride ABG Glucose Oxyhemoglobin Carboxyhemoglobin Sodium 135 L Potassium Chloride 93.5 L Carbon Dioxide 33 H BUN 68 H Creatinine 1.9 H Glucose 143 H POC Glucose 135 H Calcium 8.1 L Ionized Calcium Total Bilirubin 1.50 H Direct Bilirubin AST 494 H ALT 835 H Total Creatine Kinase Troponin T NT-Pro-B Natriuret Pep Total Protein 9.5 H Albumin 3.1 L LDL Cholesterol Direct HDL Cholesterol TSH Free T4 Arterial Blood Glucose 04/14/21 04/14/21 04/15/21 12:03 17:24 00:19 WBC Hgb Hct MCV MCH MCHC RDW Plt Count Seg Neuts % (Manual) Lymphocytes % (Manual) Nucleated RBC % Seg Neutrophils # Man Lymphocytes # (Manual) Monocytes # (Manual) PT INR D-Dimer ABG pH 7.291 L POC ABG pCO2 75.5 H POC ABG pO2 76.2 L ABG pO2 ABG HCO3 ABG Base Excess ABG Hemoglobin 9.9 L ABG Oxyhemoglobin 91.0 L ABG Sodium 134.9 L ABG Potassium ABG Chloride 93.0 L ABG Glucose 146 H Oxyhemoglobin Carboxyhemoglobin 2.2 H Sodium Potassium Chloride Carbon Dioxide BUN Creatinine Glucose POC Glucose 134 H 136 H Calcium Ionized Calcium Total Bilirubin Direct Bilirubin AST ALT Total Creatine Kinase Troponin T NT-Pro-B Natriuret Pep Total Protein Albumin LDL Cholesterol Direct HDL Cholesterol TSH Free T4 Arterial Blood Glucose 146 H 04/15/21 04/15/21 04/15/21 04:55 04:55 05:29 WBC Hgb 8.0 L Hct 27.1 L MCV 70 L MCH 21 L MCHC RDW 24.3 H Plt Count Seg Neuts % (Manual) Lymphocytes % (Manual) Nucleated RBC % Seg Neutrophils # Man Lymphocytes # (Manual) Monocytes # (Manual) PT INR D-Dimer ABG pH POC ABG pCO2 POC ABG pO2 ABG pO2 ABG HCO3 ABG Base Excess ABG Hemoglobin ABG Oxyhemoglobin ABG Sodium ABG Potassium ABG Chloride ABG Glucose Oxyhemoglobin Carboxyhemoglobin Sodium Potassium Chloride 95.1 L Carbon Dioxide 36 H BUN 63 H Creatinine 1.5 H Glucose 131 H POC Glucose 118 H Calcium 8.3 L Ionized Calcium Total Bilirubin 1.80 H Direct Bilirubin AST 323 H ALT 609 H Total Creatine Kinase Troponin T NT-Pro-B Natriuret Pep Total Protein 9.3 H Albumin 2.9 L LDL Cholesterol Direct HDL Cholesterol TSH Free T4 Arterial Blood Glucose 04/15/21 04/15/21 04/15/21 11:40 18:30 22:44 WBC Hgb Hct MCV MCH MCHC RDW Plt Count Seg Neuts % (Manual) Lymphocytes % (Manual) Nucleated RBC % Seg Neutrophils # Man Lymphocytes # (Manual) Monocytes # (Manual) PT INR D-Dimer ABG pH POC ABG pCO2 POC ABG pO2 ABG pO2 ABG HCO3 ABG Base Excess ABG Hemoglobin ABG Oxyhemoglobin ABG Sodium ABG Potassium ABG Chloride ABG Glucose Oxyhemoglobin Carboxyhemoglobin Sodium Potassium Chloride Carbon Dioxide BUN Creatinine Glucose POC Glucose 139 H 130 H 123 H Calcium Ionized Calcium Total Bilirubin Direct Bilirubin AST ALT Total Creatine Kinase Troponin T NT-Pro-B Natriuret Pep Total Protein Albumin LDL Cholesterol Direct HDL Cholesterol TSH Free T4 Arterial Blood Glucose 04/16/21 04/16/21 04/16/21 04:53 04:53 07:16 WBC 12.5 H Hgb 8.8 L Hct 30.2 L MCV 74 L MCH 21 L MCHC 29 L RDW 24.5 H Plt Count Seg Neuts % (Manual) Lymphocytes % (Manual) Nucleated RBC % Seg Neutrophils # Man Lymphocytes # (Manual) Monocytes # (Manual) PT INR D-Dimer ABG pH POC ABG pCO2 POC ABG pO2 ABG pO2 ABG HCO3 ABG Base Excess ABG Hemoglobin ABG Oxyhemoglobin ABG Sodium ABG Potassium ABG Chloride ABG Glucose Oxyhemoglobin Carboxyhemoglobin Sodium Potassium Chloride 96.9 L Carbon Dioxide 35 H BUN 65 H Creatinine 1.5 H Glucose 142 H POC Glucose 138 H Calcium Ionized Calcium Total Bilirubin 1.50 H Direct Bilirubin AST 251 H ALT 572 H Total Creatine Kinase Troponin T NT-Pro-B Natriuret Pep Total Protein 10.1 H Albumin 3.2 L LDL Cholesterol Direct HDL Cholesterol TSH Free T4 Arterial Blood Glucose 04/16/21 04/16/21 04/16/21 07:32 11:29 14:42 WBC Hgb Hct MCV MCH MCHC RDW Plt Count Seg Neuts % (Manual) Lymphocytes % (Manual) Nucleated RBC % Seg Neutrophils # Man Lymphocytes # (Manual) Monocytes # (Manual) PT INR D-Dimer ABG pH 7.086 L 7.188 L POC ABG pCO2 142.2 H 99.3 H POC ABG pO2 196.3 H 132.3 H ABG pO2 ABG HCO3 ABG Base Excess ABG Hemoglobin 10.0 L 9.2 L ABG Oxyhemoglobin ABG Sodium ABG Potassium ABG Chloride 96.0 L 96.0 L ABG Glucose 147 H 146 H Oxyhemoglobin Carboxyhemoglobin 1.6 H 2.0 H Sodium Potassium Chloride Carbon Dioxide BUN Creatinine Glucose POC Glucose 131 H Calcium Ionized Calcium Total Bilirubin Direct Bilirubin AST ALT Total Creatine Kinase Troponin T NT-Pro-B Natriuret Pep Total Protein Albumin LDL Cholesterol Direct HDL Cholesterol TSH Free T4 Arterial Blood Glucose 147 H 146 H 04/16/21 04/16/21 04/17/21 17:23 22:34 07:44 WBC Hgb Hct MCV MCH MCHC RDW Plt Count Seg Neuts % (Manual) Lymphocytes % (Manual) Nucleated RBC % Seg Neutrophils # Man Lymphocytes # (Manual) Monocytes # (Manual) PT INR D-Dimer ABG pH POC ABG pCO2 POC ABG pO2 ABG pO2 ABG HCO3 ABG Base Excess ABG Hemoglobin ABG Oxyhemoglobin ABG Sodium ABG Potassium ABG Chloride ABG Glucose Oxyhemoglobin Carboxyhemoglobin Sodium Potassium Chloride Carbon Dioxide BUN Creatinine Glucose POC Glucose 117 H 169 H 150 H Calcium Ionized Calcium Total Bilirubin Direct Bilirubin AST ALT Total Creatine Kinase Troponin T NT-Pro-B Natriuret Pep Total Protein Albumin LDL Cholesterol Direct HDL Cholesterol TSH Free T4 Arterial Blood Glucose 04/17/21 04/17/21 04/17/21 08:55 08:55 09:47 WBC Hgb 8.7 L Hct 29.4 L MCV 74 L MCH 22 L MCHC RDW 24.8 H Plt Count Seg Neuts % (Manual) Lymphocytes % (Manual) Nucleated RBC % Seg Neutrophils # Man Lymphocytes # (Manual) Monocytes # (Manual) PT INR D-Dimer ABG pH 7.234 L POC ABG pCO2 90.5 H POC ABG pO2 139.4 H ABG pO2 ABG HCO3 ABG Base Excess ABG Hemoglobin 9.5 L ABG Oxyhemoglobin ABG Sodium ABG Potassium ABG Chloride 97.0 L ABG Glucose 179 H Oxyhemoglobin Carboxyhemoglobin 1.7 H Sodium Potassium Chloride 94.4 L Carbon Dioxide 37 H BUN 68 H Creatinine 1.5 H Glucose 178 H POC Glucose Calcium Ionized Calcium Total Bilirubin 1.60 H Direct Bilirubin AST 172 H ALT 437 H Total Creatine Kinase Troponin T NT-Pro-B Natriuret Pep Total Protein 10.1 H Albumin 3.2 L LDL Cholesterol Direct HDL Cholesterol TSH Free T4 Arterial Blood Glucose 179 H 04/17/21 04/17/21 04/17/21 11:39 16:03 17:24 WBC Hgb Hct MCV MCH MCHC RDW Plt Count Seg Neuts % (Manual) Lymphocytes % (Manual) Nucleated RBC % Seg Neutrophils # Man Lymphocytes # (Manual) Monocytes # (Manual) PT INR D-Dimer 5410.10 H ABG pH POC ABG pCO2 POC ABG pO2 ABG pO2 ABG HCO3 ABG Base Excess ABG Hemoglobin ABG Oxyhemoglobin ABG Sodium ABG Potassium ABG Chloride ABG Glucose Oxyhemoglobin Carboxyhemoglobin Sodium Potassium Chloride Carbon Dioxide BUN Creatinine Glucose POC Glucose 161 H 130 H Calcium Ionized Calcium Total Bilirubin Direct Bilirubin AST ALT Total Creatine Kinase Troponin T NT-Pro-B Natriuret Pep Total Protein Albumin LDL Cholesterol Direct HDL Cholesterol TSH Free T4 Arterial Blood Glucose 04/17/21 04/18/21 04/18/21 21:52 10:20 11:58 WBC Hgb Hct MCV MCH MCHC RDW Plt Count Seg Neuts % (Manual) Lymphocytes % (Manual) Nucleated RBC % Seg Neutrophils # Man Lymphocytes # (Manual) Monocytes # (Manual) PT INR D-Dimer ABG pH POC ABG pCO2 POC ABG pO2 ABG pO2 ABG HCO3 ABG Base Excess ABG Hemoglobin ABG Oxyhemoglobin ABG Sodium ABG Potassium ABG Chloride ABG Glucose Oxyhemoglobin Carboxyhemoglobin Sodium 146 H D Potassium Chloride Carbon Dioxide BUN 75 H Creatinine 1.6 H Glucose 158 H POC Glucose 150 H 143 H Calcium Ionized Calcium Total Bilirubin Direct Bilirubin AST ALT Total Creatine Kinase Troponin T NT-Pro-B Natriuret Pep Total Protein Albumin LDL Cholesterol Direct HDL Cholesterol TSH Free T4 Arterial Blood Glucose 04/18/21 04/18/21 04/18/21 14:19 16:55 16:55 WBC Hgb 8.3 L Hct 27.7 L MCV MCH MCHC RDW Plt Count Seg Neuts % (Manual) Lymphocytes % (Manual) Nucleated RBC % Seg Neutrophils # Man Lymphocytes # (Manual) Monocytes # (Manual) PT 18.7 H INR 1.51 H D-Dimer ABG pH POC ABG pCO2 67.4 H POC ABG pO2 150.6 H ABG pO2 ABG HCO3 ABG Base Excess ABG Hemoglobin 9.3 L ABG Oxyhemoglobin ABG Sodium ABG Potassium ABG Chloride ABG Glucose 162 H Oxyhemoglobin Carboxyhemoglobin 1.6 H Sodium Potassium Chloride Carbon Dioxide BUN Creatinine Glucose POC Glucose Calcium Ionized Calcium Total Bilirubin Direct Bilirubin AST ALT Total Creatine Kinase Troponin T NT-Pro-B Natriuret Pep Total Protein Albumin LDL Cholesterol Direct HDL Cholesterol TSH Free T4 Arterial Blood Glucose 162 H 04/18/21 04/18/21 04/18/21 17:40 19:55 19:55 WBC Hgb Hct MCV MCH MCHC RDW Plt Count Seg Neuts % (Manual) Lymphocytes % (Manual) Nucleated RBC % Seg Neutrophils # Man Lymphocytes # (Manual) Monocytes # (Manual) PT INR D-Dimer ABG pH POC ABG pCO2 POC ABG pO2 ABG pO2 ABG HCO3 ABG Base Excess ABG Hemoglobin ABG Oxyhemoglobin ABG Sodium ABG Potassium ABG Chloride ABG Glucose Oxyhemoglobin Carboxyhemoglobin Sodium Potassium Chloride Carbon Dioxide BUN Creatinine Glucose POC Glucose 151 H Calcium Ionized Calcium Total Bilirubin Direct Bilirubin AST ALT Total Creatine Kinase Troponin T NT-Pro-B Natriuret Pep Total Protein Albumin LDL Cholesterol Direct HDL Cholesterol TSH 6.140 H Free T4 0.67 L Arterial Blood Glucose 04/18/21 04/19/21 04/19/21 22:19 04:40 04:40 WBC Hgb 8.1 L Hct 27.5 L MCV 73 L MCH 22 L MCHC RDW 25.4 H Plt Count Seg Neuts % (Manual) Lymphocytes % (Manual) Nucleated RBC % Seg Neutrophils # Man Lymphocytes # (Manual) Monocytes # (Manual) PT INR D-Dimer ABG pH POC ABG pCO2 POC ABG pO2 ABG pO2 ABG HCO3 ABG Base Excess ABG Hemoglobin ABG Oxyhemoglobin ABG Sodium ABG Potassium ABG Chloride ABG Glucose Oxyhemoglobin Carboxyhemoglobin Sodium Potassium Chloride Carbon Dioxide 37 H D BUN 76 H Creatinine 1.6 H Glucose 173 H POC Glucose 157 H Calcium Ionized Calcium Total Bilirubin Direct Bilirubin AST ALT Total Creatine Kinase Troponin T NT-Pro-B Natriuret Pep Total Protein Albumin LDL Cholesterol Direct HDL Cholesterol TSH Free T4 Arterial Blood Glucose 04/19/21 04/19/21 04/19/21 11:36 17:20 21:17 WBC Hgb Hct MCV MCH MCHC RDW Plt Count Seg Neuts % (Manual) Lymphocytes % (Manual) Nucleated RBC % Seg Neutrophils # Man Lymphocytes # (Manual) Monocytes # (Manual) PT INR D-Dimer ABG pH POC ABG pCO2 POC ABG pO2 ABG pO2 ABG HCO3 ABG Base Excess ABG Hemoglobin ABG Oxyhemoglobin ABG Sodium ABG Potassium ABG Chloride ABG Glucose Oxyhemoglobin Carboxyhemoglobin Sodium Potassium Chloride Carbon Dioxide BUN Creatinine Glucose POC Glucose 168 H 174 H 163 H Calcium Ionized Calcium Total Bilirubin Direct Bilirubin AST ALT Total Creatine Kinase Troponin T NT-Pro-B Natriuret Pep Total Protein Albumin LDL Cholesterol Direct HDL Cholesterol TSH Free T4 Arterial Blood Glucose 04/20/21 04/20/21 04/20/21 04:22 11:27 17:12 WBC Hgb Hct MCV MCH MCHC RDW Plt Count Seg Neuts % (Manual) Lymphocytes % (Manual) Nucleated RBC % Seg Neutrophils # Man Lymphocytes # (Manual) Monocytes # (Manual) PT INR D-Dimer ABG pH POC ABG pCO2 POC ABG pO2 ABG pO2 ABG HCO3 ABG Base Excess ABG Hemoglobin ABG Oxyhemoglobin ABG Sodium ABG Potassium ABG Chloride ABG Glucose Oxyhemoglobin Carboxyhemoglobin Sodium 147 H Potassium Chloride Carbon Dioxide 37 H BUN 74 H Creatinine 1.3 H Glucose 193 H POC Glucose 154 H 162 H Calcium Ionized Calcium Total Bilirubin Direct Bilirubin AST ALT Total Creatine Kinase Troponin T NT-Pro-B Natriuret Pep Total Protein Albumin LDL Cholesterol Direct HDL Cholesterol TSH Free T4 Arterial Blood Glucose 04/20/21 04/21/21 04/21/21 21:59 09:05 12:28 WBC Hgb Hct MCV MCH MCHC RDW Plt Count Seg Neuts % (Manual) Lymphocytes % (Manual) Nucleated RBC % Seg Neutrophils # Man Lymphocytes # (Manual) Monocytes # (Manual) PT INR D-Dimer ABG pH POC ABG pCO2 POC ABG pO2 ABG pO2 ABG HCO3 ABG Base Excess ABG Hemoglobin ABG Oxyhemoglobin ABG Sodium ABG Potassium ABG Chloride ABG Glucose Oxyhemoglobin Carboxyhemoglobin Sodium Potassium Chloride Carbon Dioxide BUN Creatinine Glucose POC Glucose 160 H 168 H 174 H Calcium Ionized Calcium Total Bilirubin Direct Bilirubin AST ALT Total Creatine Kinase Troponin T NT-Pro-B Natriuret Pep Total Protein Albumin LDL Cholesterol Direct HDL Cholesterol TSH Free T4 Arterial Blood Glucose 04/21/21 04/21/21 04/22/21 17:27 21:42 08:15 WBC Hgb Hct MCV MCH MCHC RDW Plt Count Seg Neuts % (Manual) Lymphocytes % (Manual) Nucleated RBC % Seg Neutrophils # Man Lymphocytes # (Manual) Monocytes # (Manual) PT INR D-Dimer ABG pH POC ABG pCO2 POC ABG pO2 ABG pO2 ABG HCO3 ABG Base Excess ABG Hemoglobin ABG Oxyhemoglobin ABG Sodium ABG Potassium ABG Chloride ABG Glucose Oxyhemoglobin Carboxyhemoglobin Sodium Potassium Chloride Carbon Dioxide BUN Creatinine Glucose POC Glucose 175 H 158 H 166 H Calcium Ionized Calcium Total Bilirubin Direct Bilirubin AST ALT Total Creatine Kinase Troponin T NT-Pro-B Natriuret Pep Total Protein Albumin LDL Cholesterol Direct HDL Cholesterol TSH Free T4 Arterial Blood Glucose 04/22/21 04/22/21 04/22/21 11:28 17:22 21:14 WBC Hgb Hct MCV MCH MCHC RDW Plt Count Seg Neuts % (Manual) Lymphocytes % (Manual) Nucleated RBC % Seg Neutrophils # Man Lymphocytes # (Manual) Monocytes # (Manual) PT INR D-Dimer ABG pH POC ABG pCO2 POC ABG pO2 ABG pO2 ABG HCO3 ABG Base Excess ABG Hemoglobin ABG Oxyhemoglobin ABG Sodium ABG Potassium ABG Chloride ABG Glucose Oxyhemoglobin Carboxyhemoglobin Sodium Potassium Chloride Carbon Dioxide BUN Creatinine Glucose POC Glucose 198 H 194 H 176 H Calcium Ionized Calcium Total Bilirubin Direct Bilirubin AST ALT Total Creatine Kinase Troponin T NT-Pro-B Natriuret Pep Total Protein Albumin LDL Cholesterol Direct HDL Cholesterol TSH Free T4 Arterial Blood Glucose 04/23/21 04/23/21 04/23/21 00:54 00:54 02:51 WBC 11.6 H Hgb 7.9 L Hct 27.2 L MCV 72 L MCH 21 L MCHC 29 L RDW 25.8 H Plt Count 118 L Seg Neuts % (Manual) 91.0 H Lymphocytes % (Manual) 4.0 L Nucleated RBC % Seg Neutrophils # Man 10.6 H Lymphocytes # (Manual) 0.5 L Monocytes # (Manual) PT INR D-Dimer ABG pH POC ABG pCO2 POC ABG pO2 ABG pO2 ABG HCO3 ABG Base Excess ABG Hemoglobin ABG Oxyhemoglobin ABG Sodium ABG Potassium ABG Chloride ABG Glucose Oxyhemoglobin Carboxyhemoglobin Sodium 153 H Potassium Chloride Carbon Dioxide 38 H BUN 74 H Creatinine 1.3 H Glucose 205 H POC Glucose Calcium Ionized Calcium Total Bilirubin 1.40 H Direct Bilirubin 0.8 H AST ALT 133 H Total Creatine Kinase Troponin T NT-Pro-B Natriuret Pep Total Protein 8.4 H Albumin 3.2 L LDL Cholesterol Direct HDL Cholesterol TSH Free T4 Arterial Blood Glucose 04/23/21 04/23/21 04/24/21 16:09 21:03 08:03 WBC Hgb Hct MCV MCH MCHC RDW Plt Count Seg Neuts % (Manual) Lymphocytes % (Manual) Nucleated RBC % Seg Neutrophils # Man Lymphocytes # (Manual) Monocytes # (Manual) PT INR D-Dimer ABG pH POC ABG pCO2 POC ABG pO2 ABG pO2 ABG HCO3 ABG Base Excess ABG Hemoglobin ABG Oxyhemoglobin ABG Sodium ABG Potassium ABG Chloride ABG Glucose Oxyhemoglobin Carboxyhemoglobin Sodium Potassium Chloride Carbon Dioxide BUN Creatinine Glucose POC Glucose 186 H 110 H 178 H Calcium Ionized Calcium Total Bilirubin Direct Bilirubin AST ALT Total Creatine Kinase Troponin T NT-Pro-B Natriuret Pep Total Protein Albumin LDL Cholesterol Direct HDL Cholesterol TSH Free T4 Arterial Blood Glucose 04/24/21 04/24/21 04/24/21 11:08 19:32 22:28 WBC Hgb Hct MCV MCH MCHC RDW Plt Count Seg Neuts % (Manual) Lymphocytes % (Manual) Nucleated RBC % Seg Neutrophils # Man Lymphocytes # (Manual) Monocytes # (Manual) PT INR D-Dimer ABG pH 7.287 L POC ABG pCO2 66.3 H POC ABG pO2 69.5 L ABG pO2 ABG HCO3 ABG Base Excess ABG Hemoglobin 10.5 L ABG Oxyhemoglobin 89.4 L ABG Sodium 149.9 H ABG Potassium 6.0 H ABG Chloride ABG Glucose 165 H Oxyhemoglobin Carboxyhemoglobin Sodium Potassium Chloride Carbon Dioxide BUN Creatinine Glucose POC Glucose 189 H 136 H Calcium Ionized Calcium Total Bilirubin Direct Bilirubin AST ALT Total Creatine Kinase Troponin T NT-Pro-B Natriuret Pep Total Protein Albumin LDL Cholesterol Direct HDL Cholesterol TSH Free T4 Arterial Blood Glucose 165 H 04/24/21 04/25/21 04/25/21 23:23 10:35 11:52 WBC 27.2 H Hgb 9.2 L Hct MCV 76 L MCH 21 L MCHC 28 L RDW 26.9 H Plt Count 65 L Seg Neuts % (Manual) 94.0 H Lymphocytes % (Manual) 4.0 L Nucleated RBC % Seg Neutrophils # Man 25.6 H Lymphocytes # (Manual) 1.1 L Monocytes # (Manual) PT INR D-Dimer ABG pH POC ABG pCO2 POC ABG pO2 ABG pO2 ABG HCO3 ABG Base Excess ABG Hemoglobin ABG Oxyhemoglobin ABG Sodium ABG Potassium ABG Chloride ABG Glucose Oxyhemoglobin Carboxyhemoglobin Sodium Potassium Chloride Carbon Dioxide BUN Creatinine Glucose POC Glucose 127 H 207 H Calcium Ionized Calcium Total Bilirubin Direct Bilirubin AST ALT Total Creatine Kinase Troponin T NT-Pro-B Natriuret Pep Total Protein Albumin LDL Cholesterol Direct HDL Cholesterol TSH Free T4 Arterial Blood Glucose Chest x-ray: report reviewed, image reviewed Additional Studies: CHEST 1 VIEW 07/26/20 INDICATION: r/o aspiration. COMPARISON: 04/12/2021 FINDINGS: Support devices: None. Heart: Enlarged, similar to the prior. Lungs/Pleura: There are low lung volumes with elevation of the right hemidiaphragm. This along with underpenetration limits evaluation of the lungs. No pleural abnormality. IMPRESSION: 1. Accounting for low lung volumes and underpenetration related to patient body habitus, no definite acute findings or significant change since the prior exam from 04/12/2021. Allied health notes reviewed: nursing
[2021-04-25] MEDS ORDERED: SODIUM CHLORIDE 0.9% 500 ML 500 ML IV NR (16:17)
[2021-04-25] MEDS: METOCLOPRAMIDE 10 MG/2 ML INJ IV SCH (17:34)
[2021-04-25 17:41] LABS: Creatine Kinase MB 5.9 ng/mL (0.0-4.0)
[2021-04-25 17:42] LABS: Calcium 8.3 mg/dL (8.4-10.2)
[2021-04-25] MEDS ORDERED: CALCIUM GLUCONATE 2,000 MG in SODIUM CHLORIDE 0.9% 100 ML IV ONE (17:55)
[2021-04-25] MEDS ORDERED: INSULIN REGULAR, HUMAN 100 UNITS/1 ML IV ONE (17:59)
[2021-04-25] MEDS ORDERED: DEXTROSE 50% IN WATER (25GM) 50 ML SYRINGE IV ONE (18:00)
[2021-04-25] MEDS ORDERED: SODIUM POLYSTYRENE 15 GM/60 ML ORAL LIQD PR ONE (18:02)
[2021-04-25] MEDS ORDERED: ALBUTEROL 2.5 MG/3 ML NEBU IH ONE (18:05)
--- NOTE | 2021-04-25 18:37 | Event Note ---
Date: 04/25/21 Patient's labs could not be done in the morning due to technical reasons, Labs were done this evening , showed severe hyperkalemia, elevated troponins, worsening renal function. --Severe hyperkalemia; potassium of 6.8 IV calcium carbonate IV regular insulin IV 50% dextrose Albuterol inhalation Kayexalate Closely monitor electrolytes Check EKG --Elevated troponin; 0.627 Check EKG, serial cardiac enzymes, serial EKGs Troponins on 04/08/2021, 0.099- 0.078 Cardiology evaluated advised medical management Recent echocardiogram; normal limits Continue aspirin, statin No beta-blockers, nitrates due to hypotension No SUNG inhibitors, due to hypotension and renal failure The heart cardiology consulted; discussed with , advised to continue current treatment Treat the underlying cause, probably NSTEMI type II In the setting of hypotension, acute kidney injury. --Worsening renal function/creatinine 1.3-3.5 Due to severe hypotension, gentle hydration Monitor renal function, avoid nephrotoxins Nephrology following Plan of care reviewed with patient's ICU nurse. Patient has multiple medical problems, critically ill Poor prognosis. Additional critical care time 40 minutes The high probability of a clinically significant, sudden or life threatening deterioration of the [multi] system(s) required my full and direct attention, intervention and personal management. The aggregate critical care time was [40] minutes. This time is in addition to time spent performing reported procedures but includes the following: [x] Data Review and interpretation [x] Patient assessment and monitoring of vital signs [x] Documentation [x] Medication orders and management
--- NOTE | 2021-04-25 21:00 | XRay Report ---
ABDOMEN 1 VIEW(S) INDICATION / CLINICAL INFORMATION: NGT placement. COMPARISON: None available. FINDINGS: TUBES / LINES: Gastric tube tip and side-port are in the stomach in satisfactory position. BOWEL GAS PATTERN: No significant abnormality. FREE AIR / EXTRALUMINAL GAS: None seen. ADDITIONAL FINDINGS: No significant additional findings. IMPRESSION: 1. Esophagogastric tube in satisfactory position. Signer Name: Jose Martin Lara MD Signed: 04/25/2021 8:56 PM Workstation Name: [id number]
[2021-04-25] MEDS: QUEtiapine 25 MG TAB PO SCH (22:17)
[2021-04-26] MEDS: METOCLOPRAMIDE 10 MG/2 ML INJ IV SCH ×3 (00:31→16:49)
[2021-04-26] MEDS: VALPROATE SODIUM 500 MG in SODIUM CHLORIDE 0.9% 100 ML IV SCH ×2 (00:32→11:48)
[2021-04-26] MEDS: DEXTROSE 5% IN WATER 1,000 ML IV SCH ×2 (00:36→11:48)
[2021-04-26] MEDS: BENZONATATE 100 MG CAP PO SCH ×2 (06:16→15:00)
[2021-04-26] MEDS: LEVOTHYROXINE 100 MCG TAB PO SCH (06:16)
[2021-04-26] MEDS: HEPARIN 5,000 UNIT/1 ML VIAL SUB-Q SCH ×2 (06:17→14:58)
[2021-04-26] MEDS: IPRATROPIUM/ALBUTEROL SULFATE 3 ML AMPUL.NEB IH SCH (08:04)
--- NOTE | 2021-04-26 09:49 | Progress Note ---
Assessment and Plan Assessment Acute kidney injury, unknown baseline. Renal ultrasound notes poor visualization due to body habitus. Hypernatremia Hyperkalemia Hypocalcemia Morbid obesity Acute hypoxemic and hypercapnic respiratory failure Acute exacerbation of CHF (congestive heart failure) Hypertension Sleep apnea Recommendations Note K 6.8, creatinine 3.5 yesterday evening-> has been difficult to obtain labs, repeat labs pending, do suspect falsely elevated K but if repeat labs If repeat labs so persistent hyperkalemia, will need HD STAT today, as well as vascath placement by ICU team; please notify me at [phone] to review labs as able today no labs for review so far this AM Increase free water intake as able Urine output appears lower Now with soft BP, holding meds, on pressor support echo noted, likely diastolic disease Avoid diuresis if able given hypernatremia, note good urine output Maintain MAP more than 65 Hold SUNG/ARB at this time Renally dose medications Avoid nephrotoxins Renal diet Daily renal labs Subjective Date of service: 04/26/21 Principal diagnosis: Ac hypoxemic and hypercapnic resp failure; AE-CHF; Morbid obesity; CLAUDIA/OHS Interval history: Remains in ICU, on levophed, on D5W Objective - Exam Narrative Exam: General: Morbid obesity, on facemask, mild discomfort HEENT: Oral mucosa moist Neck: Supple, no JVD Chest: labored breathing on NC Heart: RRR, S1 and S2 Abdomen: Soft, nontender Extremity: No peripheral cyanosis, edema Neurological: Awake and alert Dermatology: skin intact Psych: Calm and cooperative Musculoskeletal: No joint effusion - Vital Signs Vital signs: Vital Signs - 12hr 04/25/21 04/25/21 04/25/21 22:00 23:00 23:46 Temperature 98.9 F Pulse Rate 93 H 93 H Pulse Rate [ Anterior Bilateral Throughout] Respiratory 23 18 Rate Respiratory Rate [Anterior Bilateral Throughout] Blood Pressure 133/85 140/83 O2 Sat by Pulse 100 Oximetry 04/26/21 04/26/21 04/26/21 00:00 00:36 01:00 Temperature Pulse Rate 90 92 H 93 H Pulse Rate [ Anterior Bilateral Throughout] Respiratory 18 30 H 30 H Rate Respiratory Rate [Anterior Bilateral Throughout] Blood Pressure 112/56 122/70 115/72 O2 Sat by Pulse 76 L 100 99 Oximetry 04/26/21 04/26/21 04/26/21 02:00 03:00 03:43 Temperature 97.7 F Pulse Rate 92 H 93 H Pulse Rate [ Anterior Bilateral Throughout] Respiratory 16 18 Rate Respiratory Rate [Anterior Bilateral Throughout] Blood Pressure 121/69 102/69 O2 Sat by Pulse 95 98 Oximetry 04/26/21 04/26/21 04/26/21 04:00 04:28 05:00 Temperature Pulse Rate 94 H 92 H Pulse Rate [ Anterior Bilateral Throughout] Respiratory 23 30 H Rate Respiratory Rate [Anterior Bilateral Throughout] Blood Pressure 105/67 101/62 125/98 O2 Sat by Pulse 95 96 96 Oximetry 04/26/21 04/26/21 04/26/21 06:00 07:00 07:45 Temperature Pulse Rate 99 H 102 H 100 H Pulse Rate [ Anterior Bilateral Throughout] Respiratory 29 H 26 H 26 H Rate Respiratory Rate [Anterior Bilateral Throughout] Blood Pressure 118/59 107/70 89/65 O2 Sat by Pulse 97 98 99 Oximetry 04/26/21 04/26/21 04/26/21 08:01 08:04 08:15 Temperature Pulse Rate 100 H 99 H 99 H Pulse Rate [ 95 H Anterior Bilateral Throughout] Respiratory 30 H 30 H 21 Rate Respiratory 30 H Rate [Anterior Bilateral Throughout] Blood Pressure 122/71 136/70 122/71 O2 Sat by Pulse 99 99 99 Oximetry 04/26/21 04/26/21 04/26/21 08:17 08:30 08:45 Temperature Pulse Rate 99 H 100 H Pulse Rate [ Anterior Bilateral Throughout] Respiratory 26 H 30 H Rate Respiratory Rate [Anterior Bilateral Throughout] Blood Pressure 125/56 117/60 O2 Sat by Pulse 99 84 86 Oximetry 04/26/21 04/26/21 09:01 09:15 Temperature Pulse Rate 99 H 99 H Pulse Rate [ Anterior Bilateral Throughout] Respiratory 31 H 32 H Rate Respiratory Rate [Anterior Bilateral Throughout] Blood Pressure 107/63 128/32 O2 Sat by Pulse 86 85 Oximetry - Lab 04/25/21 10:35 04/25/21 17:14 Most recent lab results ABG pH 7.287 (7.320-7.450) L 04/24/21 22:28 ABG pCO2 86.9 mm Hg 04/13/21 18:40 ABG pO2 81.8 mm Hg (80.0-90.0) 04/13/21 18:40 ABG HCO3 36.2 mmol/L (20.0-26.0) H 04/13/21 18:40 ABG O2 Saturation 90.8 (0-100) 04/24/21 22:28 Calcium 8.3 mg/dL (8.4-10.2) L 04/25/21 17:14 Phosphorus 6.80 mg/dL (2.5-4.5) H 04/25/21 17:14 Magnesium 2.40 mg/dL (1.7-2.3) H 04/25/21 17:14 Urine Sodium 16 mmol/L 04/09/21 18:46 Medications & Allergies - Medications Allergies/Adverse Reactions: Allergies No Known Allergies Allergy (Unverified 01/27/17 11:17) Home Medications: Home Medications Medication Instructions Recorded Confirmed Last Taken Type Albuterol Mdi (or & Nicu Only) 2 puff IH QID PRN #1 inhalation 08/10/20 04/24/21 Unknown Rx [ProAir HFA Inhaler] ALBUTEROL NEB's [Proventil 0.083% 2.5 mg IH Q4H PRN 04/24/21 04/24/21 Unknown History NEBS] Atrovent HFA 17MCG/PUFF 2 puff IH QID 04/24/21 04/24/21 Unknown History Ferrous Sulfate [Feosol] 325 mg PO QDAY 04/24/21 04/24/21 Unknown History Fluticasone/Salmeterol [Advair 1 puff IH BID 04/24/21 04/24/21 Unknown History Diskus 250-50 mcg] Furosemide [Lasix TAB] 40 mg PO QDAY 04/24/21 04/24/21 Unknown History Ibuprofen [Motrin 800 MG tab] 800 mg PO Q6H PRN 04/24/21 04/24/21 Unknown History Metformin HCl [Metformin HCl ER] 750 mg PO QDAY 04/24/21 04/24/21 Unknown History Semaglutide [Ozempic] 0.25 mg SQ QWEEK 04/24/21 04/24/21 Unknown History amLODIPine [Norvasc] 10 mg PO DAILY 04/24/21 04/24/21 Unknown History Active Medications: Generic Name Dose Route Start Last Admin Trade Name Freq PRN Reason Stop Dose Admin Acetaminophen 650 mg 04/08/21 03:00 04/17/21 06:42 Acetaminophen 325 Mg Tab PO 650 mg Q4H PRN Administration Pain MILD(1-3)/Fever >100.5/BROWN Albuterol 2.5 mg 04/08/21 03:00 Albuterol 2.5 Mg/3 Ml Nebu IH Q4HRT PRN Shortness Of Breath Albuterol/Ipratropium 1 ampul 04/08/21 08:00 04/26/21 08:04 Ipratropium/Albuterol Sulfate 3 Ml Ampul.Neb IH 1 ampul TIDRT EKATERINA Administration Aspirin 325 mg 04/09/21 10:00 04/25/21 10:28 Aspirin Ec 325 Mg Tab PO Not Given QDAY EKATERINA Atorvastatin Calcium 40 mg 04/08/21 22:00 04/25/21 22:19 Atorvastatin 40 Mg Tab PO 40 mg QHS EKATERINA Administration Benzonatate 100 mg 04/08/21 06:00 04/26/21 06:16 Benzonatate 100 Mg Cap PO 100 mg Q8HR EKATERINA Administration Guaifenesin 200 mg 04/12/21 14:47 04/17/21 06:43 Guaifenesin 100 Mg/5 Ml Oral Liqd PO 200 mg Q4H PRN Administration Cough Haloperidol Lactate 5 mg 04/18/21 16:27 04/21/21 03:30 Haloperidol Lactate 5 Mg/1 Ml Inj IV 5 mg Q6H PRN Administration Agitation Heparin Sodium (Porcine) 5,000 unit 04/18/21 14:00 04/26/21 06:17 Heparin 5,000 Unit/1 Ml Vial SUB-Q 5,000 unit Q8HR EKATERINA Administration Hydralazine HCl 10 mg 04/19/21 17:25 04/22/21 08:54 Hydralazine 20 Mg/1 Ml Inj IV 10 mg Q6H PRN Administration Blood Pressure Dextrose 1,000 mls @ 100 mls/hr 04/24/21 21:46 04/26/21 00:36 D5w IV 100 mls/hr DIRECT EKATERINA Administration Norepinephrine 4 mg in 250 mls @ 37.5 mls/hr 04/24/21 20:41 04/25/21 13:58 Levophed Drip 4 Mg/Ns 250 Ml IV 2 mcg/min TITR EKATERINA 7.5 mls/hr Titration Protocol 10 MCG/MIN Valproate Sodium 500 mg/ 105 mls @ 100 mls/hr 04/25/21 11:00 04/26/21 00:32 Sodium Chloride IV 100 mls/hr Q12H EKATERINA Administration Levothyroxine Sodium 100 mcg 04/22/21 06:00 04/26/21 06:16 Levothyroxine 100 Mcg Tab PO 100 mcg DAILY@0600 EKATERINA Administration Methylprednisolone Sodium Succinate 20 mg 04/16/21 10:00 04/25/21 22:18 Methylprednisolone Sod Succinate 40 Mg/1 Ml Inj IV 20 mg Q12HR EKATERINA Administration Metoclopramide HCl 5 mg 04/25/21 16:00 04/26/21 00:31 Metoclopramide 10 Mg/2 Ml Inj IV 04/28/21 15:59 5 mg Q8H EKATERINA Administration Nitroglycerin 0.4 mg 04/08/21 03:00 Nitroglycerin 0.4 Mg Tab Subl SL Q5M PRN Chest Pain Nystatin 1 applic 04/08/21 18:00 04/25/21 22:17 Nystatin Powder 15 Gm TP 1 applic BID EKATERINA Administration Ondansetron HCl 4 mg 04/08/21 03:00 04/15/21 23:51 Ondansetron 4 Mg/2 Ml Inj IV 4 mg Q8H PRN Administration Nausea And Vomiting Oxycodone/Acetaminophen 1 tab 04/08/21 03:00 04/21/21 16:26 Oxycodone /Acetaminophen 5-325mg Tab PO 1 tab Q6H PRN Administration Pain, Moderate (4-6) Pantoprazole Sodium 40 mg 04/23/21 07:30 04/25/21 08:00 Pantoprazole 40 Mg Tab PO Not Given QDAC EKATERINA Quetiapine Fumarate 75 mg 04/18/21 22:00 04/25/21 22:17 Quetiapine 25 Mg Tab PO 75 mg QHS EKATERINA Administration Sodium Chloride 10 ml 04/08/21 10:00 04/25/21 22:14 Sodium Chloride 0.9% 10 Ml Flush Syringe IV 10 ml BID EKATERINA Administration Sodium Chloride 10 ml 04/08/21 03:00 04/24/21 20:43 Sodium Chloride 0.9% 10 Ml Flush Syringe IV 10 ml PRN PRN Administration LINE FLUSH Tramadol HCl 50 mg 04/08/21 03:00 04/20/21 21:50 Tramadol 50 Mg Tab PO 50 mg Q6H PRN Administration Pain, Moderate (4-6)
[2021-04-26] MEDS: methylPREDNISolone Sod Succinate 40 MG/1 ML INJ IV SCH (09:53)
[2021-04-26] MEDS: PANTOPRAZOLE 40 MG TAB PO SCH (09:54)
[2021-04-26] MEDS: NYSTATIN POWDER 15 GM TP SCH (09:56)
--- NOTE | 2021-04-26 10:13 | Progress Note ---
Assessment and Plan Assessment and plan: Labs could not be done this morning, unable to get PICC line, midline due to morbid obesity However managed to get neck later --Non-ST elevation SD; Elevated troponin; 0.627 Check EKG, serial cardiac enzymes, serial EKGs On-call motor operator Dr. Bulmaro ty was consulted last night Recent echocardiogram; normal limits Continue aspirin, statin No beta-blockers, nitrates due to hypotension No SUNG inhibitors, due to hypotension and renal failure --Severe hyperkalemia; Current Visit: Yes Status: Acute Patient received calcium carbonate, insulin and dextrose Albuterol inhalation, Kayexalate Unable to do labs today to repeat electrolytes We will closely monitor and adjust as needed --Acute metabolic encephalopathy; Current Visit: Yes Status: Acute Multifactorial, severe hypoxia, severe bradycardia Underlying obesity hypoventilation and cardiac issues Neurochecks, supportive care If no improvement CT head, and possible neurology consult --Hypotension; shock Current Visit: Yes Status: Acute Patient is on Levophed, titrate as tolerated Continue IV fluids -Acute on chronic hypoxic respiratory failure; requiring BiPAP Current Visit: Yes Status: Acute Continue oxygen titrate O2 sats more than 90% Continue BiPAP as needed Multifactorial obesity hypoventilation syndrome Obstructive sleep apnea, COPD, CHF Pulmonary following, cardiology evaluated in the past and signed off Treat the underlying cause --Acute exacerbation COPD (chronic obstructive pulmonary disease) Current Visit: Yes Status: Acute Oxygen titrate O2 sats to more than 90%, patient is requiring BiPAP most of the times Wean as tolerated, nebulizers, IV steroids, IV antibiotics, inhalation steroids --acute kidney injury /worsening renal function Vasomotor nephropathy ,gentle hydration, monitor renal function, avoid nephrotoxins, nephrology following -- Morbid obesity; BMI 104.4 Current Visit: Yes Status: Acute Patient needs to participate on professional weight reduction program when medically stable. Strongly recommend outpatient follow-up with bariatric surgeon upon discharge when stable. --Obesity hypoventilation syndrome; Supplemental oxygen and BiPAP --Obstructive sleep apnea; CPAP and BiPAP as needed -- Non-ST elevation SD (NSTEMI) Current Visit: Yes Status: Acute Cardiology evaluated, recommend medical management and signed off -- Acute exacerbation of CHF (congestive heart failure) Current Visit: Yes Status: Acute Fluid restriction. Maintain input output. Antifailure medications low-sodium diet Input output monitoring, cardiology following --hypothyroidism /new onset Current Visit: Yes Status: Acute Continue Synthroid, closely monitor Patient needs follow-up with radiation protection technician as outpatient upon DC -- Hypoglycemia/present on admission Current Visit: Yes Status: Acute Now resolved closely monitor blood sugars -- Lymphedema of the abdominal wall Due to morbid obesity, supportive care fluid restriction Low-sodium diet --Anemia of chronic disease; Closely monitor H&H, transfuse as needed --Acute transaminitis acute liver failure Acute transaminitis; LFTs trending down Hepatocellular pattern, multifactorial NAFLD, congestive hepatopathy, DILI, GI evaluation and recommendations noted, LFTs trending down -- hypertension Current Visit: Yes Status: Acute Plan to address problem: We will continue the home medication. Hydralazine 10 mg IV every 6 hours as needed. We will monitor the blood pressure closely -- DVT prophylaxis Current Visit: No Status: Acute Plan to address problem: Heparin 5000 units subcu every 8 hours for DVT prophylaxis. Pepcid 20 mg p.o. twice daily for GI prophylaxis. Patient is a full code Also monitor the patient and adjust management as needed We will closely monitor the patient and adjust management as needed Total critical care time 60 minutes The high probability of a clinically significant, sudden or life threatening deterioration of the [multi] system(s) required my full and direct attention, intervention and personal management. The aggregate critical care time was [60] minutes. This time is in addition to time spent performing reported procedures but includes the following: [x] Data Review and interpretation [x] Patient assessment and monitoring of vital signs [x] Documentation [x] Medication orders and management Daily Hospital course; 04/09 -Patient is on heparin drip for non-STEMI, cardiology is following. -Patient is off Lasix and SUNG inhibitors because of GILBERTO. -Kidney function is worsening overnight and I put a consult for nephrology. -Patient is hypotensive and blood pressure from this morning was 101/41. We will continue to monitor. And if it is dropping we we will give him fluid. -Echo was done and EF of 50 to 55%. Diastolic dysfunction is indeterminate. Management per cardiology -Patient has COPD continues on dexamethasone, nebulizer treatment as needed. -Patient has hyponatremia and hyperkalemia. I give the patient Kayexalate. Monitor electrolytes. Will follow nephrology for additional recommendation. 04/10 -Renal function is worsening, nephrology is following -Blood pressure is better today -Hyperkalemia; I added Kayexalate -Morbid obesity 04/11 -Slight improvement in creatinine. Hyponatremia worsened. Nephrology is following and put the patient back on Lasix. -Blood PRESSURE IS BETTER today -Potassium this morning was 5.8, I ordered 60 g of Kayexalate -Morbidly obese -Obesity hypoventilation syndrome 04/12 -Creatinine is improving and this morning was 2.4 -Hyponatremia improved this morning was 134. Patient is on Lasix -Blood pressure is better -Patient is on 10 L of oxygen; worsened -Morbidly obese, CLAUDIA 04/13: Follow ordered ultrasound of abdomen, per Physician unable to get CT. I ordered an ABG due to my concern about her breathing pattern this morning, patient may benefit from. Will try to establish if patient has a primary pulmonary doctor. ABG is showing consistent with Respiratory Acidosis. Will place on BIPAP now. May need to transfer to IM for closer monitoring. Patient likely with Obesity Hypoventilation syndrome. cardiology work up, ongoing. RENAL SHOWING SOME IMPROVEMENT Guarded prognosis 04/14: Patient seen and examined today identified some lesion under the pannus will obtain wound care and wound surgeon evaluation. Nephrology input noted continue diuresis and stop the sodium tabs creatinine is stable. I did discuss with the family and updated them. We will continue to hold SUNG and ARB and if pressures continue to drop may need to hold diuresis also despite as written above. Monitor labs including H&H. She is more awake review of ABG shows improving CO2. Will discuss with case management as patient may need BiPAP on discharge home. I also updated the family 04/15: Patient showing some clinical improvement. Liver enzymes is showing mild improvement although bilirubin increased slightly. GI input noted and as discussed by his notes below "Abnormal liver enzymes in hepatocellular pattern. broad ddx and likely multifactorial causes including NAFLD, congestive hepatopathy, possibly DILI. will check viral hep serologies. US with limited views, possible coarsening of the liver" Patient also evaluated by surgery noted with the lymphedema of abdominal wall and open wound of the abdominal wall without penetration into the abdominal cavity with recommendation to pack the wounds daily with mesalt. Need to maintain dry environment discussed with nursing staff. Elevate the pannus and optimize nutrition for which I will get nutritional consult. No surgical intervention at this time. Patient is bedbound when I asked when last she ambulated she said while "I guess he has not worked" but it has been a while. Unfortunately the LTAC center unwilling to accept the patient will discuss with pulmonary and with case management about obtaining BiPAP for this patient and possible SNF referral. 04/16: Patient this morning and was noted significantly lethargic and unresponsive respiratory and a code to be called. The patient resuscitated without any invasive procedure. ABG was obtained showed a CO2 of 142. Despite using BiPAP for some time through the night, sure how long she used it for. I have discontinued all IV opioids and recommend no IV opioids for this patient at this time. I also discontinued p.o. medications as an essential medication and change to IV. We will repeat an ABG in an hour to see if there is some improvement. Patient remains at high risk for possible intubation. Clinical condition is guarded 04/17: Patient remains on BiPAP this am, has some intermittent twitching, will check EEG, not likely seizure, but will monitor. Continue current management , check Albumin and Pre-Albumin level. Remains critically ill. Liver status showing improvement. 04/18: Patient with elevated D-dimer unfortunately size precludes being able to have a CTA chest done here to rule out pulmonary embolism. Doppler of lower extremities is pending. We will continue subcu anticoagulation with heparin at this time. Until Doppler is resolved. Patient is not hypoxic so doubt pulmonary embolism at this time. Her problem remains hypercapnia. I did take time to go over her history while she has been around hospital in the past and noticed a remarkable increase in her BMI from the last 2 years. Discussed with the training generalist will agree to check thyroid function test. Critical care time 35- minute 04/19: Patient with hypothyroidism, while she does not appear to be with myxedema coma at this time. Will initiate levothyroxine as I believe that this will make profound impact her management at this time, continue BiPAP continue current m anagement. Seroquel was added by pulmonary for delirium and agitation management, Ventimask during the day and BiPAP at night 04/20: Continue levothyroine, can change to PO in am. Will obtain Psych consult, she is clinically stable and will transfer to floor 04/21; levothyroxine changed to 100 mg p.o. daily Senior Cost Estimator recommendations noted and appreciated Monitor LFTs 04/22; patient continues to be hypoxemic on continuous BiPAP Consultants and recommendations noted and appreciated Continue current management 04/23; patient has intermittent hallucination, psych following Patient is currently on nasal cannula oxygen, refusing BiPAP Mild distress and confused 04/24; possible discharge tomorrow With home health, home oxygen Discussed with nurse infection control 04/25; patient went into metabolic encephalopathy, sudden altered level of consciousness and hypotension Was transferred to ICU last night, started on Levophed Drip patient is severely lethargic and hypoxic on BiPAP and she is in shock on Levophed, critically ill Patient had severe hyperkalemia; treated appropriately with multiple medications Patient had elevated troponins, consulted on-call motor operator 04/26: Patient is critically ill severely hypoxemic, respiratory failure, morbid obesity Hypotension requiring Levophed, obesity hypoventilation, non-ST elevation SD, worsening renal function very poor prognosis History Interval history: I have seen and examined the patient at the bedside in ICU Patient's chart and medications reviewed Patient is critically ill, hypoxemic on supplemental oxygen Morbidly obese, unable to get the blood drawn Unable to get midline/PICC line due to morbid obesity However when the blood. Patient has severe hyperkalemia Patient is severely lethargic noncommunicative Vital signs noted Hospitalist Physical - Constitutional Vitals: Temp Pulse Resp BP Pulse Ox 97.7 F 99 H 32 H 128/32 85 04/26/21 03:43 04/26/21 09:15 04/26/21 09:15 04/26/21 09:15 04/26/21 09:15 General appearance: Present: mild distress, well-nourished, obese (Morbidly obese), other (Lethargic) - EENT Eyes: Present: PERRL, EOM intact - Neck Neck: Present: supple - Respiratory Respiratory effort: labored Respiratory: bilateral: diminished, rhonchi, negative: rales, wheezing - Cardiovascular Rhythm: regular Heart Sounds: Present: S1 & S2 - Extremities Extremities: no ischemia Extremity abnormal: edema - Abdominal General gastrointestinal: soft, non-tender, non-distended, normal bowel sounds - Integumentary Integumentary: Present: clear, warm - Psychiatric Psychiatric: other (Lethargic minimally communicative) - Neurologic Neurologic: moves all extremities HEART Score - HEART Score Troponin: Troponin T 0.624 ng/mL (0.00-0.029) H* 04/25/21 23:52 Results - Labs CBC & Chem 7: 04/26/21 12:15 04/26/21 11:55 Labs: Laboratory Last Values WBC 27.2 K/mm3 (4.5-11.0) H 04/25/21 10:35 RBC 4.41 M/mm3 (3.65-5.03) 04/25/21 10:35 Hgb 9.2 gm/dl (10.1-14.3) L 04/25/21 10:35 Hct 33.5 % (30.3-42.9) D 04/25/21 10:35 MCV 76 fl (79-97) L 04/25/21 10:35 MCH 21 pg (28-32) L 04/25/21 10:35 MCHC 28 % (30-34) L 04/25/21 10:35 RDW 26.9 % (13.2-15.2) H 04/25/21 10:35 Plt Count 65 K/mm3 (140-440) L 04/25/21 10:35 Add Manual Diff Complete 04/25/21 10:35 Total Counted 100 04/25/21 10:35 Seg Neutrophils % Optical Engineering Technician 04/25/21 10:35 Seg Neuts % (Manual) 94.0 % (40.0-70.0) H 04/25/21 10:35 Band Neutrophils % 1.0 % 04/25/21 10:35 Lymphocytes % (Manual) 4.0 % (13.4-35.0) L 04/25/21 10:35 Reactive Lymphs % (Man) 1.0 % 04/12/21 14:11 Monocytes % (Manual) 1.0 % (0.0-7.3) 04/25/21 10:35 Metamyelocytes % 2.0 % 04/12/21 14:11 Myelocytes % 2.0 % 04/08/21 04:03 Nucleated RBC % Not Reportable 04/25/21 10:35 Seg Neutrophils # Man 25.6 K/mm3 (1.8-7.7) H 04/25/21 10:35 Band Neutrophils # 0.3 K/mm3 04/25/21 10:35 Lymphocytes # (Manual) 1.1 K/mm3 (1.2-5.4) L 04/25/21 10:35 Abs React Lymphs (Man) 0.0 K/mm3 04/25/21 10:35 Monocytes # (Manual) 0.3 K/mm3 (0.0-0.8) 04/25/21 10:35 Eosinophils # (Manual) 0.0 K/mm3 (0.0-0.4) 04/25/21 10:35 Basophils # (Manual) 0.0 K/mm3 (0.0-0.1) 04/25/21 10:35 Metamyelocytes # 0.0 K/mm3 04/25/21 10:35 Myelocytes # 0.0 K/mm3 04/25/21 10:35 Promyelocytes # 0.0 K/mm3 04/25/21 10:35 Blast Cells # 0.0 K/mm3 04/25/21 10:35 WBC Morphology Not Reportable 04/25/21 10:35 WBC Morphology TNR 04/25/21 10:35 Hypersegmented Neuts Not Reportable 04/25/21 10:35 Hyposegmented Neuts Not Reportable 04/25/21 10:35 Hypogranular Neuts Not Reportable 04/25/21 10:35 Smudge Cells Not Reportable 04/25/21 10:35 Toxic Granulation Not Reportable 04/25/21 10:35 Toxic Vacuolation Not Reportable 04/25/21 10:35 Dohle Bodies Not Reportable 04/25/21 10:35 Pelger-Huet Anomaly Not Reportable 04/25/21 10:35 Ana Cristina Rods Not Reportable 04/25/21 10:35 Platelet Estimate Not Reportable 04/25/21 10:35 Clumped Platelets Not Reportable 04/25/21 10:35 Plt Clumps, EDTA Not Reportable 04/25/21 10:35 Large Platelets Not Reportable 04/25/21 10:35 Giant Platelets Not Reportable 04/25/21 10:35 Platelet Satelliting Not Reportable 04/25/21 10:35 Plt Morphology Comment Not Reportable 04/25/21 10:35 RBC Morphology Not Reportable 04/25/21 10:35 Dimorphic RBCs Not Reportable 04/25/21 10:35 Polychromasia Not Reportable 04/25/21 10:35 Hypochromasia 1+ 04/25/21 10:35 Poikilocytosis 1+ 04/25/21 10:35 Anisocytosis 2+ 04/25/21 10:35 Microcytosis Not Reportable 04/25/21 10:35 Macrocytosis Not Reportable 04/25/21 10:35 Spherocytes Not Reportable 04/25/21 10:35 Pappenheimer Bodies Not Reportable 04/25/21 10:35 Sickle Cells Not Reportable 04/25/21 10:35 Target Cells 1+ 04/25/21 10:35 Tear Drop Cells Not Reportable 04/25/21 10:35 Ovalocytes Not Reportable 04/25/21 10:35 Helmet Cells Not Reportable 04/25/21 10:35 [place] Bodies Not Reportable 04/25/21 10:35 [place] Rings Not Reportable 04/25/21 10:35 [place] Cells Not Reportable 04/25/21 10:35 Bite Cells Not Reportable 04/25/21 10:35 Crenated Cell Not Reportable 04/25/21 10:35 Elliptocytes Not Reportable 04/25/21 10:35 Acanthocytes (Spur) Not Reportable 04/25/21 10:35 Rouleaux Not Reportable 04/25/21 10:35 Hemoglobin C Crystals Not Reportable 04/25/21 10:35 Schistocytes Not Reportable 04/25/21 10:35 Malaria parasites Not Reportable 04/25/21 10:35 Tyshawn Bodies Not Reportable 04/25/21 10:35 Hem Pathologist Commnt No 04/25/21 10:35 PT 18.7 Sec. (12.2-14.9) H 04/18/21 16:55 INR 1.51 (0.87-1.13) H 04/18/21 16:55 APTT 25.2 Sec. (24.2-36.6) 04/18/21 16:55 D-Dimer 5410.10 ng/mlDDU (0-234) H 04/17/21 16:03 ABG pH 7.287 (7.320-7.450) L 04/24/21 22:28 POC ABG pCO2 66.3 mmHg (32.0-48.0) H 04/24/21 22:28 ABG pCO2 86.9 mm Hg 04/13/21 18:40 POC ABG pO2 69.5 mmHg (83-108) L 04/24/21 22: ABG pO2 81.8 mm Hg (80.0-90.0) 04/13/21 18:40 POC ABG HCO3 30.9 04/24/21 22: ABG HCO3 36.2 mmol/L (20.0-26.0) H 04/13/21 18:40 ABG O2 Saturation 90.8 (0-100) 04/24/21 22: ABG O2 Content 10.4 (0.0-44) 04/13/21 18:40 POC ABG Base Excess 3.1 04/24/21 22: ABG Base Excess 7.4 mmol/L (-2.0-3.0) H 04/13/21 18:40 ABG Hemoglobin 10.5 (12.0-17.5) L 04/24/21 22: ABG Oxyhemoglobin 89.4 (94-98) L 04/24/21 22:28 ABG Carboxyhemoglobin 1.9 % (0.0-5.0) 04/13/21 18:40 ABG Methemoglobin 0.3 (0.0-1.5) 04/24/21 22:28 ABG Sodium 149.9 mmol/L (136.0-145.0) H 04/24/21 22:28 ABG Potassium 6.0 mmol/L (3.40-4.50) H 04/24/21 22:28 ABG Chloride 104.0 mmol/L (98-107) 04/24/21 22:28 ABG Glucose 165 mg/dL (65-95) H 04/24/21 22: Oxyhemoglobin 93.7 % (95.0-99.0) L 04/13/21 18:40 Carboxyhemoglobin 1.2 (0.5-1.5) 04/24/21 22: FiO2 30 % 04/13/21 18:40 FiO2 % 50.0 04/24/21 22:28 Sodium 145 mmol/L (137-145) D 04/25/21 17:14 Potassium 6.8 mmol/L (3.6-5.0) H* D 04/25/21 17:14 Chloride 100.7 mmol/L (98-107) 04/25/21 17:14 Carbon Dioxide 26 mmol/L (22-30) D 04/25/21 17:14 Anion Gap 25 mmol/L 04/25/21 17:14 BUN 112 mg/dL (7-17) H 04/25/21 17:14 Creatinine 3.5 mg/dL (0.6-1.2) H D 04/25/21 17:14 Estimated GFR 18 ml/min 04/25/21 17:14 BUN/Creatinine Ratio 32 % 04/25/21 17:14 Glucose 231 mg/dL (65-100) H 04/25/21 17:14 POC Glucose 232 mg/dL (70-105) H 04/26/21 05:16 Osmolality 301 Mosm/kg 04/09/21 23:15 Calcium 8.3 mg/dL (8.4-10.2) L 04/25/21 17:14 Ionized Calcium 3.6 mg/dL (4.8-5.6) L 04/09/21 23:15 Phosphorus 6.80 mg/dL (2.5-4.5) H 04/25/21 17:14 Magnesium 2.40 mg/dL (1.7-2.3) H 04/25/21 17:14 Total Bilirubin 3.60 mg/dL (0.1-1.2) H 04/25/21 17:14 Direct Bilirubin 0.8 mg/dL (0-0.2) H 04/23/21 00:54 Indirect Bilirubin 0.6 mg/dL 04/23/21 00:54 AST 8105 units/L (5-40) H 04/25/21 17:14 ALT 3151 units/L (7-56) H 04/25/21 17:14 Alkaline Phosphatase 57 units/L (35-129) 04/25/21 17:14 Total Creatine Kinase 3401 units/L (30-135) H 04/25/21 17:14 CK-MB (CK-2) 5.9 ng/mL (0.0-4.0) H 04/25/21 17:14 CK-MB (CK-2) Rel Index 0.1 (0-4) 04/25/21 17:14 Troponin T 0.624 ng/mL (0.00-0.029) H* 04/25/21 23:52 NT-Pro-B Natriuret Pep 7573 pg/mL (0-450) H 04/07/21 22:04 Total Protein 8.6 g/dL (6.3-8.2) H 04/25/21 17:14 Albumin 3.0 g/dL (3.9-5) L 04/25/21 17:14 Albumin/Globulin Ratio 0.5 % 04/25/21 17:14 Triglycerides 105 mg/dL (2-149) 04/07/21 22:04 Cholesterol 85 mg/dL (50-199) 04/07/21 22:04 LDL Cholesterol Direct 47 mg/dL (50-130) L 04/07/21 22:04 HDL Cholesterol 25 mg/dL (40-59) L 04/07/21 22:04 Cholesterol/HDL Ratio 3.40 % 04/07/21 22:04 TSH 6.140 mlU/mL (0.270-4.200) H 04/18/21 19:55 Free T4 0.67 ng/dL (0.76-1.46) L 04/18/21 19:55 Total Cortisol 41.3 mcg/dL () 04/10/21 10:04 Arterial Blood Glucose 165 mg/dL (65-95) H 04/24/21 22:28 Arterial Blood Ionized Calcium 4.6 mg/dL (4.6-5.3) 04/16/21 07:32 Urine Osmolality 157 Mosm/kg 04/09/21 18:46 Urine Sodium 16 mmol/L 04/09/21 18:46 Coronavirus (PCR) Negative (Negative) 04/14/21 Unknown Hepatitis A IgM Ab Non-reactive (NonReactive) 04/14/21 18:45 Hep Bs Antigen Nonreactive (Negative) 04/14/21 18:45 Hepatitis C Antibody Non-reactive (NonReactive) 04/14/21 18:45 Zambrano/IV: Voiding Method Indwelling Catheter Active Medications - Current Medications Current Medications: Generic Name Dose Route Start Last Admin Trade Name Freq PRN Reason Stop Dose Admin Acetaminophen 650 mg 04/08/21 03:00 04/17/21 06:42 Acetaminophen 325 Mg Tab PO 650 mg Q4H PRN Administration Pain MILD(1-3)/Fever >100.5/BROWN Albuterol 2.5 mg 04/08/21 03:00 Albuterol 2.5 Mg/3 Ml Nebu IH Q4HRT PRN Shortness Of Breath Albuterol/Ipratropium 1 ampul 04/08/21 08:00 04/26/21 08:04 Ipratropium/Albuterol Sulfate 3 Ml Ampul.Neb IH 1 ampul TIDRT EKATERINA Administration Aspirin 325 mg 04/09/21 10:00 04/25/21 10:28 Aspirin Ec 325 Mg Tab PO Not Given QDAY EKATERINA Atorvastatin Calcium 40 mg 04/08/21 22:00 04/25/21 22:19 Atorvastatin 40 Mg Tab PO 40 mg QHS EKATERINA Administration Benzonatate 100 mg 04/08/21 06:00 04/26/21 06:16 Benzonatate 100 Mg Cap PO 100 mg Q8HR EKATERINA Administration Guaifenesin 200 mg 04/12/21 14:47 04/17/21 06:43 Guaifenesin 100 Mg/5 Ml Oral Liqd PO 200 mg Q4H PRN Administration Cough Haloperidol Lactate 5 mg 04/18/21 16:27 04/21/21 03:30 Haloperidol Lactate 5 Mg/1 Ml Inj IV 5 mg Q6H PRN Administration Agitation Heparin Sodium (Porcine) 5,000 unit 04/18/21 14:00 04/26/21 06:17 Heparin 5,000 Unit/1 Ml Vial SUB-Q 5,000 unit Q8HR EKATERINA Administration Hydralazine HCl 10 mg 04/19/21 17:25 04/22/21 08:54 Hydralazine 20 Mg/1 Ml Inj IV 10 mg Q6H PRN Administration Blood Pressure Dextrose 1,000 mls @ 100 mls/hr 04/24/21 21:46 04/26/21 00:36 D5w IV 100 mls/hr DIRECT EKATERINA Administration Norepinephrine 4 mg in 250 mls @ 37.5 mls/hr 04/24/21 20:41 04/25/21 13:58 Levophed Drip 4 Mg/Ns 250 Ml IV 2 mcg/min TITR EAKTERINA 7.5 mls/hr Titration Protocol 10 MCG/MIN Valproate Sodium 500 mg/ 105 mls @ 100 mls/hr 04/25/21 11:00 04/26/21 00:32 Sodium Chloride IV 100 mls/hr Q12H EKATERINA Administration Levothyroxine Sodium 100 mcg 04/22/21 06:00 04/26/21 06:16 Levothyroxine 100 Mcg Tab PO 100 mcg DAILY@0600 EKATERINA Administration Methylprednisolone Sodium Succinate 20 mg 04/16/21 10:00 04/26/21 09:53 Methylprednisolone Sod Succinate 40 Mg/1 Ml Inj IV 20 mg Q12HR EKATERINA Administration Metoclopramide HCl 5 mg 04/25/21 16:00 04/26/21 09:54 Metoclopramide 10 Mg/2 Ml Inj IV 04/28/21 15:59 5 mg Q8H EKATERINA Administration Nitroglycerin 0.4 mg 04/08/21 03:00 Nitroglycerin 0.4 Mg Tab Subl SL Q5M PRN Chest Pain Nystatin 1 applic 04/08/21 18:00 04/26/21 09:56 Nystatin Powder 15 Gm TP 1 applic BID EKATERINA Administration Ondansetron HCl 4 mg 04/08/21 03:00 04/15/21 23:51 Ondansetron 4 Mg/2 Ml Inj IV 4 mg Q8H PRN Administration Nausea And Vomiting Oxycodone/Acetaminophen 1 tab 04/08/21 03:00 04/21/21 16:26 Oxycodone /Acetaminophen 5-325mg Tab PO 1 tab Q6H PRN Administration Pain, Moderate (4-6) Pantoprazole Sodium 40 mg 04/23/21 07:30 04/26/21 09:54 Pantoprazole 40 Mg Tab PO Not Given QDAC EKATERINA Quetiapine Fumarate 75 mg 04/18/21 22:00 04/25/21 22:17 Quetiapine 25 Mg Tab PO 75 mg QHS EKATERINA Administration Sodium Chloride 10 ml 04/08/21 10:00 04/26/21 09:56 Sodium Chloride 0.9% 10 Ml Flush Syringe IV 10 ml BID EKATERINA Administration Sodium Chloride 10 ml 04/08/21 03:00 04/24/21 20:43 Sodium Chloride 0.9% 10 Ml Flush Syringe IV 10 ml PRN PRN Administration LINE FLUSH Tramadol HCl 50 mg 04/08/21 03:00 04/20/21 21:50 Tramadol 50 Mg Tab PO 50 mg Q6H PRN Administration Pain, Moderate (4-6) Nutrition/Malnutrition Assess - Dietary Evaluation Nutrition/Malnutrition Findings: Nutrition Notes Start: 04/08/21 14:21 Freq: Status: Active Protocol: Document 04/20/21 15:55 MARIELY (Rec: 04/20/21 16:53 MARIELY [id number]) Nutrition Notes Need for Assessment generated from: hotel staff member Initial or Follow up Reassessment Current Diagnosis Heart Failure Other Pertinent Diagnosis Accute Kidney Injury Current Diet Renal Diet (from B 04/13). Labs/Tests 04/20: Na 147, CO2 37, BUN 74, Cr 1.3, Glu 193. Pertinent Medications Reviewed. Height 5 ft 4 in Weight 277.3 kg [place] Body Weight (kg) 54.54 BMI 104.9 Intake Prior to Admission Good Weight change and time frame expect weight fluctuations r/t fluid therapy, CHF complications Weight Status Morbidly Obese Subjective/Other Information Pt developed accute renal condition that requires support from Renal Diet. Percent of energy/protein needs met: Renal diet provides all energy /protein needs (2072 Kcal/77 g ) per day. Burn Absent Trauma Absent GI Symptoms None Food Allergy No Skin Integrity/Comment Integumentary: clear, warm, dry. Current % PO Good (75-100%) Minimum of two criteria No physical signs of malnutrition #1 Nutrition Diagnosis Altered nutrition-related laboratory values,Overweight/ obesity Comments: Pt developed accute renal condition that requires support from Renal Diet. Etiology Accute Kidney Injury resulted from complications from concomitant conditions As Evidenced by Signs and Symptoms Altered lab values and MD diagnosis Diagnosis Progress(for reassessment Worsened documentation) Is patient on ventilator? No Is Patient Ambulatory and/or Out of Bed Yes REE-(Wallace-St. Jeor-ambulatory/OOB) [ 4501.900 NUTR.MSJOOB] Kcal/Kg value to use for calculation 10 Approximate Energy Requirements Using 2773 kcal/Kg Calculation Used for Recommendations Kcal/Kg of IBW Additional Notes Protein 1.0 g/Kg; 55 g/day; 220 Kcal/day (from IBW). Fluids: 1ml/kcal or per MD Nutrition Intervention Change Diet Order: Continue Renal Diet as MD prescribed. Teaching Recipient Patient Learning Readiness Good Teaching Methods Discussion Response to Teaching Verbalize understanding, Reinforcement needed Barriers to Learning Motivation,Emotional,Social Patient aware of follow up options Yes Actions To Overcome Barriers Collaboration with Other Providers Goal #1 Achieve and maintain acceptable chemistry lab values during LOS Goal #2 Support Improvement in renal functions while providing energy/protein needs during LOS Follow-Up By: 04/27/21 Additional Comments Continue monitoring % of food intake and tolerance, and BM. Reinforce education towards bariatric therapy after accute kidney injury is solved.
[2021-04-26] MEDS: ASPIRIN EC 325 MG TAB PO SCH (11:49)
[2021-04-26 12:21] LABS: Mean Corpuscular HGB Conc 27 % (30-34); Mean Corpuscular Volume 78 fl (79-97)
[2021-04-26 12:22] LABS: Creatine Kinase MB 7.8 ng/mL (0.0-4.0)
[2021-04-26 12:23] LABS: Albumin 3.3 g/dL (3.9-5)
[2021-04-26 12:24] LABS: Hematocrit 32.1 % (30.3-42.9); Hemoglobin 8.7 gm/dl (10.1-14.3); Red Cell Distribution Width 27.2 % (13.2-15.2)
[2021-04-26] MEDS ORDERED: PANTOPRAZOLE 40 MG INJ IV SCH (13:00)
[2021-04-26] MEDS ORDERED: CALCIUM GLUCONATE 2,000 MG in SODIUM CHLORIDE 0.9% 100 ML IV ONE (14:09)
[2021-04-26] MEDS ORDERED: INSULIN REGULAR, HUMAN 100 UNITS/1 ML IV ONE (14:11)
[2021-04-26] MEDS ORDERED: DEXTROSE 50% IN WATER (25GM) 50 ML SYRINGE IV ONE (14:12)
[2021-04-26] MEDS ORDERED: SODIUM POLYSTYRENE 15 GM/60 ML ORAL LIQD PO ONE (14:19)
[2021-04-26] MEDS ORDERED: ALBUTEROL 2.5 MG/3 ML NEBU IH ONE (14:21)
[2021-04-26 14:56] LABS: Total Cells Counted 100
[2021-04-26 14:57] LABS: Anisocytosis 3+; Hypochromasia 2+; Schistocytes Few; Target Cells Rare
[2021-04-26 14:58] LABS: Ovalocytes Few; Platelet Estimate Consistent w Auto
[2021-04-26 16:12] LABS: Platelet Count 62 K/mm3 (140-440)
--- NOTE | 2021-04-26 17:26 | Progress Note ---
Assessment and Plan 35 years old female with history of morbid obesity, hypertension, asthma , sleep apnea was brought to the emergency room because of shortness of breath, edema, generalized malaise, fatigue, and weakness for last couple of days. She states she just does not feel well. She has a headache. She states her legs are swollen. She feels as though she is retaining fluid. She states that she went to her regular doctors on the . They tested her for Covid. It was negative. She was told to go see a tentering machine feeder. She is not seen a car diologist as of yet. She came in here because she was not feeling well and did not know what to do. She has had no sick contacts. In the emergency room patient is found to have acute CHF exacerbation patient proBNP is 7573 also patient cardiac enzyme is elevated troponin is 0.043. Patient blood glucose also 55 patient is hypoglycemic. Patient admitted to the hospital. Patient sleeping on 4 litres O2 and O2 saturation 98%. BIPAP 24/6, rate 30, FIO2 40% and stand-by in the room. Patient goes on BIPAP during night time. Patient running Low grade temp. Has leukocytosis. Blood pressure 90/52, Pulse 98. I ABG on FIO2 45% ABG pH 7.234 (7.320-7.450) L 04/17/21 09:47 POC ABG pCO2 90.5 mmHg (32.0-48.0) H 04/17/21 09:47 ABG pCO2 86.9 mm Hg 04/13/21 18:40 POC ABG pO2 139.4 mmHg (83-108) H 04/17/21 09:47 ABG pO2 81.8 mm Hg (80.0-90.0) 04/13/21 18:40 POC ABG HCO3 37.4 04/17/21 09:47 ABG O2 Saturation 99.2 (0-100) 04/17/21 09:47 Patients D dimer 04/17/21 : 5410.10 Patient presently on albuterol/atrovent aerosol treatments q 6 hours, Subcutaneous Heparin, Protonix, and I/V SoluMedrol and Levophed. - Patient Problems (1) Acute respiratory failure with hypoxia and hypercapnia Status: Acute Plan to address problem: On 4L O2 Saturation 98%. BIPAP 24/6, rate 30, FIO2 40%. Stand-by. Albuterol/atrovent aerosol treatments. Continue Solumedrol Contibue S/C Heparin. Continue Protonix (2) Acute exacerbation of CHF (congestive heart failure) Status: Acute Plan to address problem: Management as per cardiology. (3) Hypertension Status: Acute Plan to address problem: Management as per primary care. (4) Morbid obesity with BMI of 70 and over, adult Status: Acute Plan to address problem: Weight reduction diet. Mobility protocol Fall precautions. (5) Obesity hypoventilation syndrome Status: Chronic Plan to address problem: BIPAP 20/8, rate 30, FIO2 40%. (6) Sleep apnea Status: Acute Plan to address problem: BIPAP 24/6, rate 30, FIO2 40%. Sleep study if she can as out patient. (7) Hypotension Status: Acute Plan to address problem: Patient is on Nor epinephrine. Continue titrate ( Increase Dose) until mAP reached to 65. Subjective Date of service: 04/26/21 Principal diagnosis: Ac hypoxemic and hypercapnic resp failure; AE-CHF; Morbid obesity; CLAUDIA/OHS Interval history: 35 years old female with history of morbid obesity, hypertension, asthma COPD sleep apnea was brought to the emergency room because of shortness of breath, edema, generalized malaise, fatigue, and weakness for last couple of days. She states she just does not feel well. She has a headache. She states her legs ar e swollen. She feels as though she is retaining fluid. She states that she went to her regular doctors on the . They tested her for Covid. It was negative. She was told to go see a tentering machine feeder. She is not seen a tentering machine feeder as of yet. She came in here because she was not feeling well and did not know what to do. She has had no sick contacts. In the emergency room patient is found to have acute CHF exacerbation patient proBNP is 7573 also patient cardiac enzyme is elevated troponin is 0.043. Patient blood glucose also 55 patient is hypoglycemic. Patient admitted to the hospital. Patient sleeping on 4 litres O2 and O2 saturation 98%. BIPAP 24/6, rate 30, FIO2 40% and stand-by in the room. Patient goes on BIPAP during night time. Patient running Low grade temp. Has leukocytosis. Blood pressure 90/52, Pulse 98. ABG on FIO2 45% ABG pH 7.234 (7.320-7.450) L 04/17/21 09:47 POC ABG pCO2 90.5 mmHg (32.0-48.0) H 04/17/21 09:47 ABG pCO2 86.9 mm Hg 04/13/21 18:40 POC ABG pO2 139.4 mmHg (83-108) H 04/17/21 09:47 ABG pO2 81.8 mm Hg (80.0-90.0) 04/13/21 18:40 POC ABG HCO3 37.4 04/17/21 09:47 ABG O2 Saturation 99.2 (0-100) 04/17/21 09:47 Patients D dimer 04/17/21 : 5410.10 Patient presently on albuterol/atrovent aerosol treatments q 6 hours, subcutaneous Heparin, Protonix, and I/V SoluMedrol and Levophed. Objective Vital Signs - 12hr 04/26/21 04/26/21 04/26/21 06:00 07:00 07:45 Pulse Rate 99 H 102 H 100 H Pulse Rate [ Anterior Bilateral Throughout] Pulse Rate [ From Monitor] Respiratory 29 H 26 H 26 H Rate Respiratory Rate [Anterior Bilateral Throughout] Blood Pressure 118/59 107/70 89/65 O2 Sat by Pulse 97 98 99 Oximetry 04/26/21 04/26/21 04/26/21 08:00 08:01 08:04 Pulse Rate 100 H 99 H Pulse Rate [ 95 H Anterior Bilateral Throughout] Pulse Rate [ 100 H From Monitor] Respiratory 25 H 30 H 30 H Rate Respiratory 30 H Rate [Anterior Bilateral Throughout] Blood Pressure 122/71 136/70 O2 Sat by Pulse 100 99 99 Oximetry 04/26/21 04/26/21 04/26/21 08:15 08:17 08:30 Pulse Rate 99 H 99 H Pulse Rate [ Anterior Bilateral Throughout] Pulse Rate [ From Monitor] Respiratory 21 26 H Rate Respiratory Rate [Anterior Bilateral Throughout] Blood Pressure 122/71 125/56 O2 Sat by Pulse 99 99 84 Oximetry 04/26/21 04/26/21 04/26/21 08:45 09:01 09:15 Pulse Rate 100 H 99 H 99 H Pulse Rate [ Anterior Bilateral Throughout] Pulse Rate [ From Monitor] Respiratory 30 H 31 H 32 H Rate Respiratory Rate [Anterior Bilateral Throughout] Blood Pressure 117/60 107/63 128/32 O2 Sat by Pulse 86 86 85 Oximetry 04/26/21 04/26/21 04/26/21 09:30 09:45 10:00 Pulse Rate 99 H 98 H 99 H Pulse Rate [ Anterior Bilateral Throughout] Pulse Rate [ From Monitor] Respiratory 30 H 29 H 21 Rate Respiratory Rate [Anterior Bilateral Throughout] Blood Pressure 123/67 102/71 113/68 O2 Sat by Pulse 82 L 85 85 Oximetry 04/26/21 04/26/21 04/26/21 10:15 10:30 10:45 Pulse Rate 98 H 98 H 98 H Pulse Rate [ Anterior Bilateral Throughout] Pulse Rate [ From Monitor] Respiratory 29 H 24 25 H Rate Respiratory Rate [Anterior Bilateral Throughout] Blood Pressure 115/77 112/69 116/68 O2 Sat by Pulse 97 98 98 Oximetry 04/26/21 04/26/21 04/26/21 11:00 11:15 11:31 Pulse Rate 99 H 97 H 97 H Pulse Rate [ Anterior Bilateral Throughout] Pulse Rate [ From Monitor] Respiratory 35 H 30 H 26 H Rate Respiratory Rate [Anterior Bilateral Throughout] Blood Pressure 134/79 112/61 107/68 O2 Sat by Pulse 97 98 97 Oximetry 04/26/21 04/26/21 04/26/21 11:45 12:00 12:01 Pulse Rate 96 H 97 H Pulse Rate [ Anterior Bilateral Throughout] Pulse Rate [ 98 H From Monitor] Respiratory 27 H 25 H 21 Rate Respiratory Rate [Anterior Bilateral Throughout] Blood Pressure 107/68 122/74 O2 Sat by Pulse 97 100 95 Oximetry 04/26/21 04/26/21 04/26/21 12:15 12:31 12:45 Pulse Rate 96 H 95 H 95 H Pulse Rate [ Anterior Bilateral Throughout] Pulse Rate [ From Monitor] Respiratory 23 20 30 H Rate Respiratory Rate [Anterior Bilateral Throughout] Blood Pressure 122/74 122/74 140/124 O2 Sat by Pulse 93 92 94 Oximetry 04/26/21 04/26/21 04/26/21 13:00 13:15 13:30 Pulse Rate 95 H 95 H 96 H Pulse Rate [ Anterior Bilateral Throughout] Pulse Rate [ From Monitor] Respiratory 27 H 28 H 27 H Rate Respiratory Rate [Anterior Bilateral Throughout] Blood Pressure 110/51 99/51 99/53 O2 Sat by Pulse 89 84 91 Oximetry 04/26/21 04/26/21 04/26/21 13:45 14:00 14:15 Pulse Rate 96 H 97 H 96 H Pulse Rate [ Anterior Bilateral Throughout] Pulse Rate [ From Monitor] Respiratory 22 32 H 30 H Rate Respiratory Rate [Anterior Bilateral Throughout] Blood Pressure 99/48 108/46 102/58 O2 Sat by Pulse 91 92 89 Oximetry 04/26/21 04/26/21 04/26/21 14:30 14:45 15:00 Pulse Rate 96 H 97 H 98 H Pulse Rate [ Anterior Bilateral Throughout] Pulse Rate [ From Monitor] Respiratory 28 H 20 31 H Rate Respiratory Rate [Anterior Bilateral Throughout] Blood Pressure 89/53 93/51 109/63 O2 Sat by Pulse 91 89 92 Oximetry 04/26/21 04/26/21 04/26/21 15:15 15:30 15:45 Pulse Rate 99 H 105 H 104 H Pulse Rate [ Anterior Bilateral Throughout] Pulse Rate [ From Monitor] Respiratory 30 H 28 H 24 Rate Respiratory Rate [Anterior Bilateral Throughout] Blood Pressure 107/59 104/56 104/56 O2 Sat by Pulse 89 89 95 Oximetry 04/26/21 16:00 Pulse Rate Pulse Rate [ Anterior Bilateral Throughout] Pulse Rate [ 102 H From Monitor] Respiratory 24 Rate Respiratory Rate [Anterior Bilateral Throughout] Blood Pressure O2 Sat by Pulse 97 Oximetry Constitutional: no acute distress, asleep, other (young extremely obese female with mildly increased respiratory effort at rest) Eyes: non-icteric ENT: oropharynx moist, other (BIPAP FFM) Neck: supple, no lymphadenopathy, no JVD Effort: mildly labored Ascultation: Bilateral: diminished breath sounds, rhonchi Percussion: Bilateral: not dull Cardiovascular: regular rate and rhythm Gastrointestinal: normoactive bowel sounds, soft, non-tender, non-distended (protuberant) Integumentary: rash (stasis dermatitis type), other (Stasis dermatititis on legs and abdomen; see [facility] notes for full details) Extremities: pulses normal, no ischemia or petechiae, edema (2+), other (stasis dermatitis) Neurologic: non-focal exam (grossly), pupils equal and round, CN II-XII normal Psychiatric: depressed CBC and BMP: 04/26/21 12:15 04/26/21 11:55 ABG, PT/INR, D-dimer: ABG ABG pH 7.287 (7.320-7.450) L 04/24/21 22:28 POC ABG pCO2 66.3 mmHg (32.0-48.0) H 04/24/21 22:28 ABG pCO2 86.9 mm Hg 04/13/21 18:40 POC ABG pO2 69.5 mmHg (83-108) L 04/24/21 22:28 ABG pO2 81.8 mm Hg (80.0-90.0) 04/13/21 18:40 POC ABG HCO3 30.9 04/24/21 22:28 ABG O2 Saturation 90.8 (0-100) 04/24/21 22:28 PT/INR, D-dimer PT 18.7 Sec. (12.2-14.9) H 04/18/21 16:55 INR 1.51 (0.87-1.13) H 04/18/21 16:55 D-Dimer 5410.10 ng/mlDDU (0-234) H 04/17/21 16:03 Abnormal lab findings: Abnormal Labs 04/07/21 04/07/21 04/08/21 22:04 22:04 00:18 WBC 17.7 H Hgb 9.1 L Hct MCV 77 L MCH 21 L MCHC 27 L RDW 24.3 H Plt Count Seg Neuts % (Manual) Lymphocytes % (Manual) Nucleated RBC % Seg Neutrophils # Man Lymphocytes # (Manual) Monocytes # (Manual) PT INR D-Dimer ABG pH POC ABG pCO2 POC ABG pO2 ABG pO2 ABG HCO3 ABG Base Excess ABG Hemoglobin ABG Oxyhemoglobin ABG Sodium ABG Potassium ABG Chloride ABG Glucose Oxyhemoglobin Carboxyhemoglobin Sodium 135 L Potassium Chloride 91.0 L Carbon Dioxide 17 L BUN Creatinine 1.4 H Glucose 55 L POC Glucose 49 L Calcium Ionized Calcium Phosphorus Magnesium Total Bilirubin Direct Bilirubin AST ALT Total Creatine Kinase CK-MB (CK-2) Troponin T 0.043 H NT-Pro-B Natriuret Pep 7573 H Total Protein Albumin LDL Cholesterol Direct 47 L HDL Cholesterol 25 L TSH Free T4 Arterial Blood Glucose 04/08/21 04/08/21 04/08/21 04:03 04:03 09:22 WBC 24.3 H Hgb 9.3 L Hct MCV 74 L MCH 21 L MCHC 29 L RDW 23.1 H Plt Count Seg Neuts % (Manual) 78.0 H Lymphocytes % (Manual) 7.0 L Nucleated RBC % 1.0 H Seg Neutrophils # Man 19.0 H Lymphocytes # (Manual) Monocytes # (Manual) 1.0 H PT INR D-Dimer ABG pH POC ABG pCO2 POC ABG pO2 ABG pO2 ABG HCO3 ABG Base Excess ABG Hemoglobin ABG Oxyhemoglobin ABG Sodium ABG Potassium ABG Chloride ABG Glucose Oxyhemoglobin Carboxyhemoglobin Sodium 134 L Potassium Chloride 91.2 L Carbon Dioxide BUN Creatinine 1.8 H Glucose POC Glucose Calcium Ionized Calcium Phosphorus Magnesium Total Bilirubin Direct Bilirubin AST ALT Total Creatine Kinase CK-MB (CK-2) Troponin T 0.099 H NT-Pro-B Natriuret Pep Total Protein Albumin LDL Cholesterol Direct HDL Cholesterol TSH Free T4 Arterial Blood Glucose 04/08/21 04/08/21 04/09/21 13:03 20:28 04:52 WBC 20.9 H Hgb 8.5 L Hct 30.0 L MCV 73 L MCH 21 L MCHC 28 L RDW 23.9 H Plt Count Seg Neuts % (Manual) 77.0 H Lymphocytes % (Manual) 1.0 L Nucleated RBC % 1.0 H Seg Neutrophils # Man 16.1 H Lymphocytes # (Manual) 0.2 L Monocytes # (Manual) PT INR D-Dimer ABG pH POC ABG pCO2 POC ABG pO2 ABG pO2 ABG HCO3 ABG Base Excess ABG Hemoglobin ABG Oxyhemoglobin ABG Sodium ABG Potassium ABG Chloride ABG Glucose Oxyhemoglobin Carboxyhemoglobin Sodium Potassium Chloride Carbon Dioxide BUN Creatinine Glucose POC Glucose 115 H Calcium Ionized Calcium Phosphorus Magnesium Total Bilirubin Direct Bilirubin AST ALT Total Creatine Kinase CK-MB (CK-2) Troponin T 0.078 H D NT-Pro-B Natriuret Pep Total Protein Albumin LDL Cholesterol Direct HDL Cholesterol TSH Free T4 Arterial Blood Glucose 04/09/21 04/09/21 04/09/21 04:52 08:46 11:50 WBC Hgb Hct MCV MCH MCHC RDW Plt Count Seg Neuts % (Manual) Lymphocytes % (Manual) Nucleated RBC % Seg Neutrophils # Man Lymphocytes # (Manual) Monocytes # (Manual) PT INR D-Dimer ABG pH POC ABG pCO2 POC ABG pO2 ABG pO2 ABG HCO3 ABG Base Excess ABG Hemoglobin ABG Oxyhemoglobin ABG Sodium ABG Potassium ABG Chloride ABG Glucose Oxyhemoglobin Carboxyhemoglobin Sodium 129 L Potassium 5.6 H Chloride 88.6 L Carbon Dioxide BUN 27 H Creatinine 2.4 H Glucose 121 H POC Glucose 139 H 156 H Calcium 7.7 L Ionized Calcium Phosphorus Magnesium Total Bilirubin Direct Bilirubin AST ALT Total Creatine Kinase CK-MB (CK-2) Troponin T NT-Pro-B Natriuret Pep Total Protein Albumin LDL Cholesterol Direct HDL Cholesterol TSH Free T4 Arterial Blood Glucose 04/09/21 04/09/21 04/09/21 15:46 16:58 22:08 WBC Hgb Hct MCV MCH MCHC RDW Plt Count Seg Neuts % (Manual) Lymphocytes % (Manual) Nucleated RBC % Seg Neutrophils # Man Lymphocytes # (Manual) Monocytes # (Manual) PT INR D-Dimer ABG pH POC ABG pCO2 POC ABG pO2 ABG pO2 ABG HCO3 ABG Base Excess ABG Hemoglobin ABG Oxyhemoglobin ABG Sodium ABG Potassium ABG Chloride ABG Glucose Oxyhemoglobin Carboxyhemoglobin Sodium 128 L Potassium 5.5 H Chloride 88.1 L Carbon Dioxide BUN 33 H Creatinine 2.7 H Glucose 172 H POC Glucose 187 H 186 H Calcium 7.3 L Ionized Calcium Phosphorus Magnesium Total Bilirubin Direct Bilirubin AST ALT Total Creatine Kinase CK-MB (CK-2) Troponin T NT-Pro-B Natriuret Pep Total Protein Albumin LDL Cholesterol Direct HDL Cholesterol TSH Free T4 Arterial Blood Glucose 04/09/21 04/10/21 04/10/21 23:15 02:20 07:39 WBC Hgb Hct MCV MCH MCHC RDW Plt Count Seg Neuts % (Manual) Lymphocytes % (Manual) Nucleated RBC % Seg Neutrophils # Man Lymphocytes # (Manual) Monocytes # (Manual) PT INR D-Dimer ABG pH POC ABG pCO2 POC ABG pO2 ABG pO2 ABG HCO3 ABG Base Excess ABG Hemoglobin ABG Oxyhemoglobin ABG Sodium ABG Potassium ABG Chloride ABG Glucose Oxyhemoglobin Carboxyhemoglobin Sodium 128 L Potassium 5.2 H Chloride 88.6 L Carbon Dioxide BUN 39 H Creatinine 3.1 H Glucose 171 H POC Glucose 168 H Calcium 7.2 L Ionized Calcium 3.6 L Phosphorus Magnesium Total Bilirubin Direct Bilirubin AST ALT Total Creatine Kinase CK-MB (CK-2) Troponin T NT-Pro-B Natriuret Pep Total Protein Albumin LDL Cholesterol Direct HDL Cholesterol TSH Free T4 Arterial Blood Glucose 04/10/21 04/10/21 04/10/21 10:04 11:37 17:18 WBC Hgb Hct MCV MCH MCHC RDW Plt Count Seg Neuts % (Manual) Lymphocytes % (Manual) Nucleated RBC % Seg Neutrophils # Man Lymphocytes # (Manual) Monocytes # (Manual) PT INR D-Dimer ABG pH POC ABG pCO2 POC ABG pO2 ABG pO2 ABG HCO3 ABG Base Excess ABG Hemoglobin ABG Oxyhemoglobin ABG Sodium ABG Potassium ABG Chloride ABG Glucose Oxyhemoglobin Carboxyhemoglobin Sodium Potassium Chloride Carbon Dioxide BUN Creatinine Glucose POC Glucose 170 H 152 H Calcium Ionized Calcium Phosphorus Magnesium Total Bilirubin Direct Bilirubin AST ALT Total Creatine Kinase 1712 H CK-MB (CK-2) Troponin T NT-Pro-B Natriuret Pep Total Protein Albumin LDL Cholesterol Direct HDL Cholesterol TSH Free T4 Arterial Blood Glucose 04/10/21 04/10/21 04/11/21 19:38 22:02 05:48 WBC Hgb Hct MCV MCH MCHC RDW Plt Count Seg Neuts % (Manual) Lymphocytes % (Manual) Nucleated RBC % Seg Neutrophils # Man Lymphocytes # (Manual) Monocytes # (Manual) PT INR D-Dimer ABG pH POC ABG pCO2 POC ABG pO2 ABG pO2 ABG HCO3 ABG Base Excess ABG Hemoglobin ABG Oxyhemoglobin ABG Sodium ABG Potassium ABG Chloride ABG Glucose Oxyhemoglobin Carboxyhemoglobin Sodium 128 L 124 L Potassium 5.8 H D Chloride 89.6 L 89.4 L Carbon Dioxide BUN 47 H 53 H Creatinine 3.0 H 2.8 H Glucose 165 H 150 H POC Glucose 147 H Calcium 6.9 L 7.2 L Ionized Calcium Phosphorus Magnesium Total Bilirubin Direct Bilirubin AST ALT Total Creatine Kinase CK-MB (CK-2) Troponin T NT-Pro-B Natriuret Pep Total Protein Albumin LDL Cholesterol Direct HDL Cholesterol TSH Free T4 Arterial Blood Glucose 04/11/21 04/11/21 04/11/21 08:48 11:35 19:12 WBC Hgb Hct MCV MCH MCHC RDW Plt Count Seg Neuts % (Manual) Lymphocytes % (Manual) Nucleated RBC % Seg Neutrophils # Man Lymphocytes # (Manual) Monocytes # (Manual) PT INR D-Dimer ABG pH POC ABG pCO2 POC ABG pO2 ABG pO2 ABG HCO3 ABG Base Excess ABG Hemoglobin ABG Oxyhemoglobin ABG Sodium ABG Potassium ABG Chloride ABG Glucose Oxyhemoglobin Carboxyhemoglobin Sodium 128 L Potassium Chloride 89.7 L Carbon Dioxide BUN 53 H Creatinine 2.4 H Glucose 159 H POC Glucose 152 H 152 H Calcium 7.1 L Ionized Calcium Phosphorus Magnesium Total Bilirubin Direct Bilirubin AST ALT Total Creatine Kinase CK-MB (CK-2) Troponin T NT-Pro-B Natriuret Pep Total Protein Albumin LDL Cholesterol Direct HDL Cholesterol TSH Free T4 Arterial Blood Glucose 04/11/21 04/12/21 04/12/21 22:03 05:03 07:41 WBC Hgb Hct MCV MCH MCHC RDW Plt Count Seg Neuts % (Manual) Lymphocytes % (Manual) Nucleated RBC % Seg Neutrophils # Man Lymphocytes # (Manual) Monocytes # (Manual) PT INR D-Dimer ABG pH POC ABG pCO2 POC ABG pO2 ABG pO2 ABG HCO3 ABG Base Excess ABG Hemoglobin ABG Oxyhemoglobin ABG Sodium ABG Potassium ABG Chloride ABG Glucose Oxyhemoglobin Carboxyhemoglobin Sodium 134 L Potassium Chloride 92.9 L Carbon Dioxide 33 H D BUN 54 H Creatinine 2.4 H Glucose 150 H POC Glucose 152 H 144 H Calcium 7.2 L Ionized Calcium Phosphorus Magnesium Total Bilirubin Direct Bilirubin AST ALT Total Creatine Kinase CK-MB (CK-2) Troponin T NT-Pro-B Natriuret Pep Total Protein Albumin LDL Cholesterol Direct HDL Cholesterol TSH Free T4 Arterial Blood Glucose 04/12/21 04/12/21 04/12/21 11:38 14:11 17:02 WBC 14.7 H Hgb 8.7 L Hct 29.8 L MCV 74 L MCH 22 L MCHC 29 L RDW 24.9 H Plt Count Seg Neuts % (Manual) 86.0 H Lymphocytes % (Manual) 6.0 L Nucleated RBC % Seg Neutrophils # Man 12.6 H Lymphocytes # (Manual) 0.9 L Monocytes # (Manual) PT INR D-Dimer ABG pH POC ABG pCO2 POC ABG pO2 ABG pO2 ABG HCO3 ABG Base Excess ABG Hemoglobin ABG Oxyhemoglobin ABG Sodium ABG Potassium ABG Chloride ABG Glucose Oxyhemoglobin Carboxyhemoglobin Sodium Potassium Chloride Carbon Dioxide BUN Creatinine Glucose POC Glucose 151 H 154 H Calcium Ionized Calcium Phosphorus Magnesium Total Bilirubin Direct Bilirubin AST ALT Total Creatine Kinase CK-MB (CK-2) Troponin T NT-Pro-B Natriuret Pep Total Protein Albumin LDL Cholesterol Direct HDL Cholesterol TSH Free T4 Arterial Blood Glucose 04/12/21 04/13/21 04/13/21 23:14 05:03 10:00 WBC Hgb Hct MCV MCH MCHC RDW Plt Count Seg Neuts % (Manual) Lymphocytes % (Manual) Nucleated RBC % Seg Neutrophils # Man Lymphocytes # (Manual) Monocytes # (Manual) PT INR D-Dimer ABG pH 7.150 L* POC ABG pCO2 POC ABG pO2 ABG pO2 91.8 H ABG HCO3 37.2 H ABG Base Excess 7.1 H ABG Hemoglobin 7.1 L ABG Oxyhemoglobin ABG Sodium ABG Potassium ABG Chloride ABG Glucose Oxyhemoglobin 93.4 L Carboxyhemoglobin Sodium 134 L Potassium Chloride 91.3 L Carbon Dioxide 33 H BUN 63 H Creatinine 2.2 H Glucose 159 H POC Glucose 151 H Calcium 7.8 L Ionized Calcium Phosphorus Magnesium Total Bilirubin Direct Bilirubin AST ALT Total Creatine Kinase CK-MB (CK-2) Troponin T NT-Pro-B Natriuret Pep Total Protein Albumin LDL Cholesterol Direct HDL Cholesterol TSH Free T4 Arterial Blood Glucose 04/13/21 04/13/21 04/13/21 12:39 16:37 18:40 WBC Hgb Hct MCV MCH MCHC RDW Plt Count Seg Neuts % (Manual) Lymphocytes % (Manual) Nucleated RBC % Seg Neutrophils # Man Lymphocytes # (Manual) Monocytes # (Manual) PT INR D-Dimer ABG pH 7.237 L POC ABG pCO2 POC ABG pO2 ABG pO2 ABG HCO3 36.2 H ABG Base Excess 7.4 H ABG Hemoglobin 7.8 L ABG Oxyhemoglobin ABG Sodium ABG Potassium ABG Chloride ABG Glucose Oxyhemoglobin 93.7 L Carboxyhemoglobin Sodium Potassium Chloride Carbon Dioxide BUN Creatinine Glucose POC Glucose 140 H 132 H Calcium Ionized Calcium Phosphorus Magnesium Total Bilirubin Direct Bilirubin AST ALT Total Creatine Kinase CK-MB (CK-2) Troponin T NT-Pro-B Natriuret Pep Total Protein Albumin LDL Cholesterol Direct HDL Cholesterol TSH Free T4 Arterial Blood Glucose 04/13/21 04/14/21 04/14/21 23:55 04:27 04:27 WBC Hgb 8.5 L Hct 29.1 L MCV 72 L MCH 21 L MCHC 29 L RDW 24.9 H Plt Count Seg Neuts % (Manual) Lymphocytes % (Manual) Nucleated RBC % Seg Neutrophils # Man Lymphocytes # (Manual) Monocytes # (Manual) PT INR D-Dimer ABG pH POC ABG pCO2 POC ABG pO2 ABG pO2 ABG HCO3 ABG Base Excess ABG Hemoglobin ABG Oxyhemoglobin ABG Sodium ABG Potassium ABG Chloride ABG Glucose Oxyhemoglobin Carboxyhemoglobin Sodium 135 L Potassium Chloride 93.5 L Carbon Dioxide 33 H BUN 68 H Creatinine 1.9 H Glucose 143 H POC Glucose 135 H Calcium 8.1 L Ionized Calcium Phosphorus Magnesium Total Bilirubin 1.50 H Direct Bilirubin AST 494 H ALT 835 H Total Creatine Kinase CK-MB (CK-2) Troponin T NT-Pro-B Natriuret Pep Total Protein 9.5 H Albumin 3.1 L LDL Cholesterol Direct HDL Cholesterol TSH Free T4 Arterial Blood Glucose 04/14/21 04/14/21 04/15/21 12:03 17:24 00:19 WBC Hgb Hct MCV MCH MCHC RDW Plt Count Seg Neuts % (Manual) Lymphocytes % (Manual) Nucleated RBC % Seg Neutrophils # Man Lymphocytes # (Manual) Monocytes # (Manual) PT INR D-Dimer ABG pH 7.291 L POC ABG pCO2 75.5 H POC ABG pO2 76.2 L ABG pO2 ABG HCO3 ABG Base Excess ABG Hemoglobin 9.9 L ABG Oxyhemoglobin 91.0 L ABG Sodium 134.9 L ABG Potassium ABG Chloride 93.0 L ABG Glucose 146 H Oxyhemoglobin Carboxyhemoglobin 2.2 H Sodium Potassium Chloride Carbon Dioxide BUN Creatinine Glucose POC Glucose 134 H 136 H Calcium Ionized Calcium Phosphorus Magnesium Total Bilirubin Direct Bilirubin AST ALT Total Creatine Kinase CK-MB (CK-2) Troponin T NT-Pro-B Natriuret Pep Total Protein Albumin LDL Cholesterol Direct HDL Cholesterol TSH Free T4 Arterial Blood Glucose 146 H 04/15/21 04/15/21 04/15/21 04:55 04:55 05:29 WBC Hgb 8.0 L Hct 27.1 L MCV 70 L MCH 21 L MCHC RDW 24.3 H Plt Count Seg Neuts % (Manual) Lymphocytes % (Manual) Nucleated RBC % Seg Neutrophils # Man Lymphocytes # (Manual) Monocytes # (Manual) PT INR D-Dimer ABG pH POC ABG pCO2 POC ABG pO2 ABG pO2 ABG HCO3 ABG Base Excess ABG Hemoglobin ABG Oxyhemoglobin ABG Sodium ABG Potassium ABG Chloride ABG Glucose Oxyhemoglobin Carboxyhemoglobin Sodium Potassium Chloride 95.1 L Carbon Dioxide 36 H BUN 63 H Creatinine 1.5 H Glucose 131 H POC Glucose 118 H Calcium 8.3 L Ionized Calcium Phosphorus Magnesium Total Bilirubin 1.80 H Direct Bilirubin AST 323 H ALT 609 H Total Creatine Kinase CK-MB (CK-2) Troponin T NT-Pro-B Natriuret Pep Total Protein 9.3 H Albumin 2.9 L LDL Cholesterol Direct HDL Cholesterol TSH Free T4 Arterial Blood Glucose 04/15/21 04/15/21 04/15/21 11:40 18:30 22:44 WBC Hgb Hct MCV MCH MCHC RDW Plt Count Seg Neuts % (Manual) Lymphocytes % (Manual) Nucleated RBC % Seg Neutrophils # Man Lymphocytes # (Manual) Monocytes # (Manual) PT INR D-Dimer ABG pH POC ABG pCO2 POC ABG pO2 ABG pO2 ABG HCO3 ABG Base Excess ABG Hemoglobin ABG Oxyhemoglobin ABG Sodium ABG Potassium ABG Chloride ABG Glucose Oxyhemoglobin Carboxyhemoglobin Sodium Potassium Chloride Carbon Dioxide BUN Creatinine Glucose POC Glucose 139 H 130 H 123 H Calcium Ionized Calcium Phosphorus Magnesium Total Bilirubin Direct Bilirubin AST ALT Total Creatine Kinase CK-MB (CK-2) Troponin T NT-Pro-B Natriuret Pep Total Protein Albumin LDL Cholesterol Direct HDL Cholesterol TSH Free T4 Arterial Blood Glucose 04/16/21 04/16/21 04/16/21 04:53 04:53 07:16 WBC 12.5 H Hgb 8.8 L Hct 30.2 L MCV 74 L MCH 21 L MCHC 29 L RDW 24.5 H Plt Count Seg Neuts % (Manual) Lymphocytes % (Manual) Nucleated RBC % Seg Neutrophils # Man Lymphocytes # (Manual) Monocytes # (Manual) PT INR D-Dimer ABG pH POC ABG pCO2 POC ABG pO2 ABG pO2 ABG HCO3 ABG Base Excess ABG Hemoglobin ABG Oxyhemoglobin ABG Sodium ABG Potassium ABG Chloride ABG Glucose Oxyhemoglobin Carboxyhemoglobin Sodium Potassium Chloride 96.9 L Carbon Dioxide 35 H BUN 65 H Creatinine 1.5 H Glucose 142 H POC Glucose 138 H Calcium Ionized Calcium Phosphorus Magnesium Total Bilirubin 1.50 H Direct Bilirubin AST 251 H ALT 572 H Total Creatine Kinase CK-MB (CK-2) Troponin T NT-Pro-B Natriuret Pep Total Protein 10.1 H Albumin 3.2 L LDL Cholesterol Direct HDL Cholesterol TSH Free T4 Arterial Blood Glucose 04/16/21 04/16/21 04/16/21 07:32 11:29 14:42 WBC Hgb Hct MCV MCH MCHC RDW Plt Count Seg Neuts % (Manual) Lymphocytes % (Manual) Nucleated RBC % Seg Neutrophils # Man Lymphocytes # (Manual) Monocytes # (Manual) PT INR D-Dimer ABG pH 7.086 L 7.188 L POC ABG pCO2 142.2 H 99.3 H POC ABG pO2 196.3 H 132.3 H ABG pO2 ABG HCO3 ABG Base Excess ABG Hemoglobin 10.0 L 9.2 L ABG Oxyhemoglobin ABG Sodium ABG Potassium ABG Chloride 96.0 L 96.0 L ABG Glucose 147 H 146 H Oxyhemoglobin Carboxyhemoglobin 1.6 H 2.0 H Sodium Potassium Chloride Carbon Dioxide BUN Creatinine Glucose POC Glucose 131 H Calcium Ionized Calcium Phosphorus Magnesium Total Bilirubin Direct Bilirubin AST ALT Total Creatine Kinase CK-MB (CK-2) Troponin T NT-Pro-B Natriuret Pep Total Protein Albumin LDL Cholesterol Direct HDL Cholesterol TSH Free T4 Arterial Blood Glucose 147 H 146 H 04/16/21 04/16/21 04/17/21 17:23 22:34 07:44 WBC Hgb Hct MCV MCH MCHC RDW Plt Count Seg Neuts % (Manual) Lymphocytes % (Manual) Nucleated RBC % Seg Neutrophils # Man Lymphocytes # (Manual) Monocytes # (Manual) PT INR D-Dimer ABG pH POC ABG pCO2 POC ABG pO2 ABG pO2 ABG HCO3 ABG Base Excess ABG Hemoglobin ABG Oxyhemoglobin ABG Sodium ABG Potassium ABG Chloride ABG Glucose Oxyhemoglobin Carboxyhemoglobin Sodium Potassium Chloride Carbon Dioxide BUN Creatinine Glucose POC Glucose 117 H 169 H 150 H Calcium Ionized Calcium Phosphorus Magnesium Total Bilirubin Direct Bilirubin AST ALT Total Creatine Kinase CK-MB (CK-2) Troponin T NT-Pro-B Natriuret Pep Total Protein Albumin LDL Cholesterol Direct HDL Cholesterol TSH Free T4 Arterial Blood Glucose 04/17/21 04/17/21 04/17/21 08:55 08:55 09:47 WBC Hgb 8.7 L Hct 29.4 L MCV 74 L MCH 22 L MCHC RDW 24.8 H Plt Count Seg Neuts % (Manual) Lymphocytes % (Manual) Nucleated RBC % Seg Neutrophils # Man Lymphocytes # (Manual) Monocytes # (Manual) PT INR D-Dimer ABG pH 7.234 L POC ABG pCO2 90.5 H POC ABG pO2 139.4 H ABG pO2 ABG HCO3 ABG Base Excess ABG Hemoglobin 9.5 L ABG Oxyhemoglobin ABG Sodium ABG Potassium ABG Chloride 97.0 L ABG Glucose 179 H Oxyhemoglobin Carboxyhemoglobin 1.7 H Sodium Potassium Chloride 94.4 L Carbon Dioxide 37 H BUN 68 H Creatinine 1.5 H Glucose 178 H POC Glucose Calcium Ionized Calcium Phosphorus Magnesium Total Bilirubin 1.60 H Direct Bilirubin AST 172 H ALT 437 H Total Creatine Kinase CK-MB (CK-2) Troponin T NT-Pro-B Natriuret Pep Total Protein 10.1 H Albumin 3.2 L LDL Cholesterol Direct HDL Cholesterol TSH Free T4 Arterial Blood Glucose 179 H 04/17/21 04/17/21 04/17/21 11:39 16:03 17:24 WBC Hgb Hct MCV MCH MCHC RDW Plt Count Seg Neuts % (Manual) Lymphocytes % (Manual) Nucleated RBC % Seg Neutrophils # Man Lymphocytes # (Manual) Monocytes # (Manual) PT INR D-Dimer 5410.10 H ABG pH POC ABG pCO2 POC ABG pO2 ABG pO2 ABG HCO3 ABG Base Excess ABG Hemoglobin ABG Oxyhemoglobin ABG Sodium ABG Potassium ABG Chloride ABG Glucose Oxyhemoglobin Carboxyhemoglobin Sodium Potassium Chloride Carbon Dioxide BUN Creatinine Glucose POC Glucose 161 H 130 H Calcium Ionized Calcium Phosphorus Magnesium Total Bilirubin Direct Bilirubin AST ALT Total Creatine Kinase CK-MB (CK-2) Troponin T NT-Pro-B Natriuret Pep Total Protein Albumin LDL Cholesterol Direct HDL Cholesterol TSH Free T4 Arterial Blood Glucose 04/17/21 04/18/21 04/18/21 21:52 10:20 11:58 WBC Hgb Hct MCV MCH MCHC RDW Plt Count Seg Neuts % (Manual) Lymphocytes % (Manual) Nucleated RBC % Seg Neutrophils # Man Lymphocytes # (Manual) Monocytes # (Manual) PT INR D-Dimer ABG pH POC ABG pCO2 POC ABG pO2 ABG pO2 ABG HCO3 ABG Base Excess ABG Hemoglobin ABG Oxyhemoglobin ABG Sodium ABG Potassium ABG Chloride ABG Glucose Oxyhemoglobin Carboxyhemoglobin Sodium 146 H D Potassium Chloride Carbon Dioxide BUN 75 H Creatinine 1.6 H Glucose 158 H POC Glucose 150 H 143 H Calcium Ionized Calcium Phosphorus Magnesium Total Bilirubin Direct Bilirubin AST ALT Total Creatine Kinase CK-MB (CK-2) Troponin T NT-Pro-B Natriuret Pep Total Protein Albumin LDL Cholesterol Direct HDL Cholesterol TSH Free T4 Arterial Blood Glucose 04/18/21 04/18/21 04/18/21 14:19 16:55 16:55 WBC Hgb 8.3 L Hct 27.7 L MCV MCH MCHC RDW Plt Count Seg Neuts % (Manual) Lymphocytes % (Manual) Nucleated RBC % Seg Neutrophils # Man Lymphocytes # (Manual) Monocytes # (Manual) PT 18.7 H INR 1.51 H D-Dimer ABG pH POC ABG pCO2 67.4 H POC ABG pO2 150.6 H ABG pO2 ABG HCO3 ABG Base Excess ABG Hemoglobin 9.3 L ABG Oxyhemoglobin ABG Sodium ABG Potassium ABG Chloride ABG Glucose 162 H Oxyhemoglobin Carboxyhemoglobin 1.6 H Sodium Potassium Chloride Carbon Dioxide BUN Creatinine Glucose POC Glucose Calcium Ionized Calcium Phosphorus Magnesium Total Bilirubin Direct Bilirubin AST ALT Total Creatine Kinase CK-MB (CK-2) Troponin T NT-Pro-B Natriuret Pep Total Protein Albumin LDL Cholesterol Direct HDL Cholesterol TSH Free T4 Arterial Blood Glucose 162 H 04/18/21 04/18/21 04/18/21 17:40 19:55 19:55 WBC Hgb Hct MCV MCH MCHC RDW Plt Count Seg Neuts % (Manual) Lymphocytes % (Manual) Nucleated RBC % Seg Neutrophils # Man Lymphocytes # (Manual) Monocytes # (Manual) PT INR D-Dimer ABG pH POC ABG pCO2 POC ABG pO2 ABG pO2 ABG HCO3 ABG Base Excess ABG Hemoglobin ABG Oxyhemoglobin ABG Sodium ABG Potassium ABG Chloride ABG Glucose Oxyhemoglobin Carboxyhemoglobin Sodium Potassium Chloride Carbon Dioxide BUN Creatinine Glucose POC Glucose 151 H Calcium Ionized Calcium Phosphorus Magnesium Total Bilirubin Direct Bilirubin AST ALT Total Creatine Kinase CK-MB (CK-2) Troponin T NT-Pro-B Natriuret Pep Total Protein Albumin LDL Cholesterol Direct HDL Cholesterol TSH 6.140 H Free T4 0.67 L Arterial Blood Glucose 04/18/21 04/19/21 04/19/21 22:19 04:40 04:40 WBC Hgb 8.1 L Hct 27.5 L MCV 73 L MCH 22 L MCHC RDW 25.4 H Plt Count Seg Neuts % (Manual) Lymphocytes % (Manual) Nucleated RBC % Seg Neutrophils # Man Lymphocytes # (Manual) Monocytes # (Manual) PT INR D-Dimer ABG pH POC ABG pCO2 POC ABG pO2 ABG pO2 ABG HCO3 ABG Base Excess ABG Hemoglobin ABG Oxyhemoglobin ABG Sodium ABG Potassium ABG Chloride ABG Glucose Oxyhemoglobin Carboxyhemoglobin Sodium Potassium Chloride Carbon Dioxide 37 H D BUN 76 H Creatinine 1.6 H Glucose 173 H POC Glucose 157 H Calcium Ionized Calcium Phosphorus Magnesium Total Bilirubin Direct Bilirubin AST ALT Total Creatine Kinase CK-MB (CK-2) Troponin T NT-Pro-B Natriuret Pep Total Protein Albumin LDL Cholesterol Direct HDL Cholesterol TSH Free T4 Arterial Blood Glucose 04/19/21 04/19/21 04/19/21 11:36 17:20 21:17 WBC Hgb Hct MCV MCH MCHC RDW Plt Count Seg Neuts % (Manual) Lymphocytes % (Manual) Nucleated RBC % Seg Neutrophils # Man Lymphocytes # (Manual) Monocytes # (Manual) PT INR D-Dimer ABG pH POC ABG pCO2 POC ABG pO2 ABG pO2 ABG HCO3 ABG Base Excess ABG Hemoglobin ABG Oxyhemoglobin ABG Sodium ABG Potassium ABG Chloride ABG Glucose Oxyhemoglobin Carboxyhemoglobin Sodium Potassium Chloride Carbon Dioxide BUN Creatinine Glucose POC Glucose 168 H 174 H 163 H Calcium Ionized Calcium Phosphorus Magnesium Total Bilirubin Direct Bilirubin AST ALT Total Creatine Kinase CK-MB (CK-2) Troponin T NT-Pro-B Natriuret Pep Total Protein Albumin LDL Cholesterol Direct HDL Cholesterol TSH Free T4 Arterial Blood Glucose 04/20/21 04/20/21 04/20/21 04:22 11:27 17:12 WBC Hgb Hct MCV MCH MCHC RDW Plt Count Seg Neuts % (Manual) Lymphocytes % (Manual) Nucleated RBC % Seg Neutrophils # Man Lymphocytes # (Manual) Monocytes # (Manual) PT INR D-Dimer ABG pH POC ABG pCO2 POC ABG pO2 ABG pO2 ABG HCO3 ABG Base Excess ABG Hemoglobin ABG Oxyhemoglobin ABG Sodium ABG Potassium ABG Chloride ABG Glucose Oxyhemoglobin Carboxyhemoglobin Sodium 147 H Potassium Chloride Carbon Dioxide 37 H BUN 74 H Creatinine 1.3 H Glucose 193 H POC Glucose 154 H 162 H Calcium Ionized Calcium Phosphorus Magnesium Total Bilirubin Direct Bilirubin AST ALT Total Creatine Kinase CK-MB (CK-2) Troponin T NT-Pro-B Natriuret Pep Total Protein Albumin LDL Cholesterol Direct HDL Cholesterol TSH Free T4 Arterial Blood Glucose 04/20/21 04/21/21 04/21/21 21:59 09:05 12:28 WBC Hgb Hct MCV MCH MCHC RDW Plt Count Seg Neuts % (Manual) Lymphocytes % (Manual) Nucleated RBC % Seg Neutrophils # Man Lymphocytes # (Manual) Monocytes # (Manual) PT INR D-Dimer ABG pH POC ABG pCO2 POC ABG pO2 ABG pO2 ABG HCO3 ABG Base Excess ABG Hemoglobin ABG Oxyhemoglobin ABG Sodium ABG Potassium ABG Chloride ABG Glucose Oxyhemoglobin Carboxyhemoglobin Sodium Potassium Chloride Carbon Dioxide BUN Creatinine Glucose POC Glucose 160 H 168 H 174 H Calcium Ionized Calcium Phosphorus Magnesium Total Bilirubin Direct Bilirubin AST ALT Total Creatine Kinase CK-MB (CK-2) Troponin T NT-Pro-B Natriuret Pep Total Protein Albumin LDL Cholesterol Direct HDL Cholesterol TSH Free T4 Arterial Blood Glucose 04/21/21 04/21/21 04/22/21 17:27 21:42 08:15 WBC Hgb Hct MCV MCH MCHC RDW Plt Count Seg Neuts % (Manual) Lymphocytes % (Manual) Nucleated RBC % Seg Neutrophils # Man Lymphocytes # (Manual) Monocytes # (Manual) PT INR D-Dimer ABG pH POC ABG pCO2 POC ABG pO2 ABG pO2 ABG HCO3 ABG Base Excess ABG Hemoglobin ABG Oxyhemoglobin ABG Sodium ABG Potassium ABG Chloride ABG Glucose Oxyhemoglobin Carboxyhemoglobin Sodium Potassium Chloride Carbon Dioxide BUN Creatinine Glucose POC Glucose 175 H 158 H 166 H Calcium Ionized Calcium Phosphorus Magnesium Total Bilirubin Direct Bilirubin AST ALT Total Creatine Kinase CK-MB (CK-2) Troponin T NT-Pro-B Natriuret Pep Total Protein Albumin LDL Cholesterol Direct HDL Cholesterol TSH Free T4 Arterial Blood Glucose 04/22/21 04/22/21 04/22/21 11:28 17:22 21:14 WBC Hgb Hct MCV MCH MCHC RDW Plt Count Seg Neuts % (Manual) Lymphocytes % (Manual) Nucleated RBC % Seg Neutrophils # Man Lymphocytes # (Manual) Monocytes # (Manual) PT INR D-Dimer ABG pH POC ABG pCO2 POC ABG pO2 ABG pO2 ABG HCO3 ABG Base Excess ABG Hemoglobin ABG Oxyhemoglobin ABG Sodium ABG Potassium ABG Chloride ABG Glucose Oxyhemoglobin Carboxyhemoglobin Sodium Potassium Chloride Carbon Dioxide BUN Creatinine Glucose POC Glucose 198 H 194 H 176 H Calcium Ionized Calcium Phosphorus Magnesium Total Bilirubin Direct Bilirubin AST ALT Total Creatine Kinase CK-MB (CK-2) Troponin T NT-Pro-B Natriuret Pep Total Protein Albumin LDL Cholesterol Direct HDL Cholesterol TSH Free T4 Arterial Blood Glucose 04/23/21 04/23/21 04/23/21 00:54 00:54 02:51 WBC 11.6 H Hgb 7.9 L Hct 27.2 L MCV 72 L MCH 21 L MCHC 29 L RDW 25.8 H Plt Count 118 L Seg Neuts % (Manual) 91.0 H Lymphocytes % (Manual) 4.0 L Nucleated RBC % Seg Neutrophils # Man 10.6 H Lymphocytes # (Manual) 0.5 L Monocytes # (Manual) PT INR D-Dimer ABG pH POC ABG pCO2 POC ABG pO2 ABG pO2 ABG HCO3 ABG Base Excess ABG Hemoglobin ABG Oxyhemoglobin ABG Sodium ABG Potassium ABG Chloride ABG Glucose Oxyhemoglobin Carboxyhemoglobin Sodium 153 H Potassium Chloride Carbon Dioxide 38 H BUN 74 H Creatinine 1.3 H Glucose 205 H POC Glucose Calcium Ionized Calcium Phosphorus Magnesium Total Bilirubin 1.40 H Direct Bilirubin 0.8 H AST ALT 133 H Total Creatine Kinase CK-MB (CK-2) Troponin T NT-Pro-B Natriuret Pep Total Protein 8.4 H Albumin 3.2 L LDL Cholesterol Direct HDL Cholesterol TSH Free T4 Arterial Blood Glucose 04/23/21 04/23/21 04/24/21 16:09 21:03 08:03 WBC Hgb Hct MCV MCH MCHC RDW Plt Count Seg Neuts % (Manual) Lymphocytes % (Manual) Nucleated RBC % Seg Neutrophils # Man Lymphocytes # (Manual) Monocytes # (Manual) PT INR D-Dimer ABG pH POC ABG pCO2 POC ABG pO2 ABG pO2 ABG HCO3 ABG Base Excess ABG Hemoglobin ABG Oxyhemoglobin ABG Sodium ABG Potassium ABG Chloride ABG Glucose Oxyhemoglobin Carboxyhemoglobin Sodium Potassium Chloride Carbon Dioxide BUN Creatinine Glucose POC Glucose 186 H 110 H 178 H Calcium Ionized Calcium Phosphorus Magnesium Total Bilirubin Direct Bilirubin AST ALT Total Creatine Kinase CK-MB (CK-2) Troponin T NT-Pro-B Natriuret Pep Total Protein Albumin LDL Cholesterol Direct HDL Cholesterol TSH Free T4 Arterial Blood Glucose 04/24/21 04/24/21 04/24/21 11:08 19:32 22:28 WBC Hgb Hct MCV MCH MCHC RDW Plt Count Seg Neuts % (Manual) Lymphocytes % (Manual) Nucleated RBC % Seg Neutrophils # Man Lymphocytes # (Manual) Monocytes # (Manual) PT INR D-Dimer ABG pH 7.287 L POC ABG pCO2 66.3 H POC ABG pO2 69.5 L ABG pO2 ABG HCO3 ABG Base Excess ABG Hemoglobin 10.5 L ABG Oxyhemoglobin 89.4 L ABG Sodium 149.9 H ABG Potassium 6.0 H ABG Chloride ABG Glucose 165 H Oxyhemoglobin Carboxyhemoglobin Sodium Potassium Chloride Carbon Dioxide BUN Creatinine Glucose POC Glucose 189 H 136 H Calcium Ionized Calcium Phosphorus Magnesium Total Bilirubin Direct Bilirubin AST ALT Total Creatine Kinase CK-MB (CK-2) Troponin T NT-Pro-B Natriuret Pep Total Protein Albumin LDL Cholesterol Direct HDL Cholesterol TSH Free T4 Arterial Blood Glucose 165 H 04/24/21 04/25/21 04/25/21 23:23 10:35 11:52 WBC 27.2 H Hgb 9.2 L Hct MCV 76 L MCH 21 L MCHC 28 L RDW 26.9 H Plt Count 65 L Seg Neuts % (Manual) 94.0 H Lymphocytes % (Manual) 4.0 L Nucleated RBC % Seg Neutrophils # Man 25.6 H Lymphocytes # (Manual) 1.1 L Monocytes # (Manual) PT INR D-Dimer ABG pH POC ABG pCO2 POC ABG pO2 ABG pO2 ABG HCO3 ABG Base Excess ABG Hemoglobin ABG Oxyhemoglobin ABG Sodium ABG Potassium ABG Chloride ABG Glucose Oxyhemoglobin Carboxyhemoglobin Sodium Potassium Chloride Carbon Dioxide BUN Creatinine Glucose POC Glucose 127 H 207 H Calcium Ionized Calcium Phosphorus Magnesium Total Bilirubin Direct Bilirubin AST ALT Total Creatine Kinase CK-MB (CK-2) Troponin T NT-Pro-B Natriuret Pep Total Protein Albumin LDL Cholesterol Direct HDL Cholesterol TSH Free T4 Arterial Blood Glucose 04/25/21 04/25/21 04/25/21 17:14 17:37 19:39 WBC Hgb Hct MCV MCH MCHC RDW Plt Count Seg Neuts % (Manual) Lymphocytes % (Manual) Nucleated RBC % Seg Neutrophils # Man Lymphocytes # (Manual) Monocytes # (Manual) PT INR D-Dimer ABG pH POC ABG pCO2 POC ABG pO2 ABG pO2 ABG HCO3 ABG Base Excess ABG Hemoglobin ABG Oxyhemoglobin ABG Sodium ABG Potassium ABG Chloride ABG Glucose Oxyhemoglobin Carboxyhemoglobin Sodium Potassium 6.8 H* D Chloride Carbon Dioxide BUN 112 H Creatinine 3.5 H D Glucose 231 H POC Glucose 231 H 275 H Calcium 8.3 L Ionized Calcium Phosphorus 6.80 H Magnesium 2.40 H Total Bilirubin 3.60 H Direct Bilirubin AST 8105 H ALT 3151 H Total Creatine Kinase 3401 H CK-MB (CK-2) 5.9 H Troponin T 0.627 H* NT-Pro-B Natriuret Pep Total Protein 8.6 H Albumin 3.0 L LDL Cholesterol Direct HDL Cholesterol TSH Free T4 Arterial Blood Glucose 04/25/21 04/26/21 04/26/21 23:52 05:16 11:55 WBC Hgb Hct MCV MCH MCHC RDW Plt Count Seg Neuts % (Manual) Lymphocytes % (Manual) Nucleated RBC % Seg Neutrophils # Man Lymphocytes # (Manual) Monocytes # (Manual) PT INR D-Dimer ABG pH POC ABG pCO2 POC ABG pO2 ABG pO2 ABG HCO3 ABG Base Excess ABG Hemoglobin ABG Oxyhemoglobin ABG Sodium ABG Potassium ABG Chloride ABG Glucose Oxyhemoglobin Carboxyhemoglobin Sodium Potassium 6.5 H* Chloride Carbon Dioxide BUN 121 H Creatinine 4.1 H Glucose 280 H POC Glucose 232 H Calcium 8.0 L Ionized Calcium Phosphorus Magnesium Total Bilirubin 3.90 H Direct Bilirubin AST 5989 H ALT 3144 H Total Creatine Kinase 5857 H CK-MB (CK-2) 7.8 H Troponin T 0.624 H* 0.668 H* NT-Pro-B Natriuret Pep Total Protein Albumin 3.3 L LDL Cholesterol Direct HDL Cholesterol TSH Free T4 Arterial Blood Glucose 04/26/21 04/26/21 12:15 12:15 WBC 16.8 H Hgb 8.7 L Hct MCV 78 L MCH 21 L MCHC 27 L RDW 27.2 H Plt Count 62 L Seg Neuts % (Manual) 94.0 H Lymphocytes % (Manual) 6.0 L Nucleated RBC % Seg Neutrophils # Man 15.8 H Lymphocytes # (Manual) 1.0 L Monocytes # (Manual) PT INR D-Dimer ABG pH POC ABG pCO2 POC ABG pO2 ABG pO2 ABG HCO3 ABG Base Excess ABG Hemoglobin ABG Oxyhemoglobin ABG Sodium ABG Potassium ABG Chloride ABG Glucose Oxyhemoglobin Carboxyhemoglobin Sodium Potassium Chloride Carbon Dioxide BUN Creatinine Glucose POC Glucose 265 H Calcium Ionized Calcium Phosphorus Magnesium Total Bilirubin Direct Bilirubin AST ALT Total Creatine Kinase CK-MB (CK-2) Troponin T NT-Pro-B Natriuret Pep Total Protein Albumin LDL Cholesterol Direct HDL Cholesterol TSH Free T4 Arterial Blood Glucose Allied health notes reviewed: nursing
[2021-04-26] MEDS ORDERED: INSULIN LISPRO 100 UNIT/ML SUB-Q SCH (18:00)
[2021-04-26] MEDS ORDERED: EPINEPHrine 1 MG/10 ML SYRINGE ONE (18:10)
[2021-04-26] MEDS ORDERED: SODIUM BICARB 8.4% 50 MEQ/50 ML SYRINGE IV ONE (18:10)
--- NOTE | 2021-04-26 18:38 | Event Note ---
Date: 04/26/21 OG VIGIL was called at 18 0 0 hours. Chest compressions were given for epis and 3 bicarbs were given Patient continued to be in persistent asystole. No return of circulation in spite of aggressive compressions and epinephrine and bicarb. Patient is also intubated Time of expiration is 1823 hrs. P[address]ouncing physician is Dr. Ed Levy Certifying physician is
--- NOTE | 2021-04-26 18:39 | Event Note ---
Date: 04/26/21 Called to bedside for CODE BLUE. Upon my arrival, hospitalist running the code. Patient was receiving O2 via BVM for respiratory therapist. Patient was intubated using glide scope with 7.5 ET tube. I observed ET tube pass through the cords. There was condensation in the tube. There was positive color change on CO2 detector. No complications with intubation.
--- NOTE | 2021-04-26 18:43 | Event Note ---
Date: 04/26/21 Ms.Ingar Acosta was called on phone #[phone] Ms. Ms. Acosta the mother of patient Liza Acosta was informed about the CODE BLUE and at time of expiration 1639 hrs. Mother Ms. Acosta to come to see the daughter. ER informed and ICU informed
--- NOTE | 2021-04-26 19:02 | Event Note ---
Date: 04/26/21 Morning labs could not be done due to patient's morbid obesity, could not draw the blood, could not get PICC line or midline Finally we could get the blood tests reports show --severe hyperkalemia; Calcium gluconate, IV insulin, IV dextrose Albuterol inhalation, Kayexalate Closely monitor electrolytes, continuous monitoring --Worsening renal function; Nephrology already following --Elevated troponins; Cardiology following We will monitor the electrolytes and adjust as needed Plan of care reviewed with the nurse
--- NOTE | 2021-04-26 19:09 | Discharge Summary ---
Providers - Providers Date of Admission: 04/08/21 03:00 Date of discharge: 04/26/21 Attending physician: YAKOV WALKER 04/08/21 Consult to Cardiac Rehabilitation [CONS] Routine Reason For Exam: Phase I 04/08/21 03:00 Consult to Cardiology [CONS] Routine Consulting Provider: FAUSTINO GUTIERREZ Reason For Exam: Non-ST elevation MT 04/08/21 13:32 Occupational Therapy Evaluate and Treat [CONS] Urgent Comment: Reason For Exam: OT to eval and treat Physical Therapy Evaluation and Treat [CONS] Urgent Comment: Reason For Exam: PT to eval and treat 04/09/21 08:53 Consult to Physician [CONS] Routine Comment: Consulting Provider: DIEGO MCKEE Physician Instructions: Reason For Exam: GILBERTO GILBERTO, hyponatremia, hyperkalemia 04/13/21 15:26 Consult to Physician [CONS] Routine Comment: Consulting Provider: KENN MARTIN Physician Instructions: Reason For Exam: HYPOXIC RESPIRATORY FAILURE 04/14/21 07:51 Consult to Physician [CONS] Routine Comment: called office/ sanjay Consulting Provider: WING BLAKELY Physician Instructions: Reason For Exam: transaminitis 04/14/21 11:23 Consult to Physician [CONS] Routine Comment: called office/ sanjay Consulting Provider: JONATAN FERGUSON Physician Instructions: Reason For Exam: abdominal pain with ulcer underneth panus 04/14/21 11:37 Consult to Wound/ET Nurse [CONS] Routine Reason For Exam: wound eval 04/18/21 15:00 Midline [Consult to PICC Line RN] [CONS] Urgent Reason For Exam: need IV access; difficult peripheral stick; thanks Type Line:: Midline 04/20/21 12:34 Consult to Physician [CONS] Routine Comment: Consulting Provider: FARIDA PARR Physician Instructions: Reason For Exam: visual hallucination 04/25/21 13:42 PICC Line Insertion [Consult to PICC Line RN] [CONS] Stat Reason For Exam: central line access for pressors. Type Line:: PICC Primary care physician: UPPER CASER Hospitalization Condition: Stable Disposition: 01 HOME / SELF CARE / HOMELESS Exam - Constitutional Vitals: Temp Pulse Resp BP Pulse Ox 97.7 F 102 H 24 104/56 97 04/26/21 03:43 04/26/21 16:00 04/26/21 16:00 04/26/21 15:45 04/26/21 16:00 Plan Follow up with: CLARIBEL WOOD MD [Staff Physician] - 7 Days PRIMARY CARE, [Primary Care Provider] - 3-5 Days
[2021-04-26 19:24] VITALS: BP 120/63
--- NOTE | 2021-04-26 20:09 | Progress Note ---
Assessment and Plan Overall, the patient had multiple medical issues. Her elevated troponin suggested type II NSTEMI and she was not a candidate for invasive cardiac evaluation considering her renal failure and status at the time of examination earlier this morning. 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 - Patient Problems (1) Acute respiratory failure with hypoxia Current Visit: Yes Status: Acute (2) Non-ST elevation DE (NSTEMI) Current Visit: Yes Status: Acute (3) COPD (chronic obstructive pulmonary disease) Current Visit: Yes Status: Chronic (4) CLAUDIA (obstructive sleep apnea) Current Visit: Yes Status: Chronic (5) GILBERTO (acute kidney injury) Current Visit: Yes Status: Acute (6) Hyperkalemia Current Visit: Yes Status: Acute (7) Hypotension Current Visit: Yes Status: Acute (8) Obesity hypoventilation syndrome Current Visit: Yes Status: Chronic (9) Morbid obesity Current Visit: Yes Status: Chronic Subjective Date of service: 04/26/21 (Seen in the ICU in the morning.) Principal diagnosis: Ac hypoxemic and hypercapnic resp failure; AE-CHF; Morbid obesity; CLAUDIA/OHS Interval history: I saw this patient this morning and discussed with her nurse. Cardiology was reconsulted on account of elevated troponin levels. She was lethargic and could not answer my questions. She could barely open her eyes. Objective Vital Signs Temp Pulse Pulse Pulse Resp Resp BP 04/26/21 19:01 120/63 04/26/21 18:47 120/63 04/26/21 18:32 120/63 04/26/21 18:15 134 H 120/63 04/26/21 18:00 100 H 36 H 120/63 04/26/21 17:45 99 H 27 H 103/55 04/26/21 17:30 99 H 27 H 90/52 04/26/21 17:15 101 H 24 112/57 04/26/21 17:00 102 H 20 98/62 04/26/21 16:45 102 H 13 104/68 04/26/21 16:30 105 H 16 111/63 04/26/21 16:15 104 H 30 H 109/65 04/26/21 16:01 103 H 22 109/43 04/26/21 16:00 99.1 F 102 H 24 04/26/21 15:45 104 H 24 104/56 04/26/21 15:30 105 H 28 H 104/56 04/26/21 15:15 99 H 30 H 107/59 04/26/21 15:00 98 H 31 H 109/63 04/26/21 14:45 97 H 20 93/51 04/26/21 14:30 96 H 28 H 89/53 04/26/21 14:15 96 H 30 H 102/58 04/26/21 14:00 97 H 32 H 108/46 04/26/21 13:45 96 H 22 99/48 04/26/21 13:30 96 H 27 H 99/53 04/26/21 13:15 95 H 28 H 99/51 04/26/21 13:00 95 H 27 H 110/51 04/26/21 12:45 95 H 30 H 140/124 04/26/21 12:31 95 H 20 122/74 04/26/21 12:15 96 H 23 122/74 04/26/21 12:01 97 H 21 122/74 04/26/21 12:00 98.5 F 98 H 25 H 04/26/21 11:45 96 H 27 H 107/68 04/26/21 11:31 97 H 26 H 107/68 04/26/21 11:15 97 H 30 H 112/61 04/26/21 11:00 99 H 35 H 134/79 04/26/21 10:45 98 H 25 H 116/68 04/26/21 10:30 98 H 24 112/69 04/26/21 10:15 98 H 29 H 115/77 04/26/21 10:00 99 H 21 113/68 04/26/21 09:45 98 H 29 H 102/71 04/26/21 09:30 99 H 30 H 123/67 04/26/21 09:15 99 H 32 H 128/32 04/26/21 09:01 99 H 31 H 107/63 04/26/21 08:45 100 H 30 H 117/60 04/26/21 08:30 99 H 26 H 125/56 04/26/21 08:17 04/26/21 08:15 99 H 21 122/71 04/26/21 08:04 99 H 95 H 30 H 30 H 136/70 04/26/21 08:01 100 H 30 H 122/71 04/26/21 08:00 98.3 F 100 H 25 H 04/26/21 07:45 100 H 26 H 89/65 04/26/21 07:00 102 H 26 H 107/70 04/26/21 06:00 99 H 29 H 118/59 04/26/21 05:00 125/98 04/26/21 04:28 92 H 30 H 101/62 04/26/21 04:00 94 H 23 105/67 04/26/21 03:43 97.7 F 04/26/21 03:00 93 H 18 102/69 04/26/21 02:00 92 H 16 121/69 04/26/21 01:00 93 H 30 H 115/72 04/26/21 00:36 92 H 30 H 122/70 04/26/21 00:00 90 18 112/56 04/25/21 23:46 98.9 F 04/25/21 23:00 93 H 18 140/83 04/25/21 22:00 93 H 23 133/85 04/25/21 21:00 96 H 20 108/90 04/25/21 20:58 96 H 31 H 157/134 Pulse Ox 04/26/21 19:01 04/26/21 18:47 72 L 04/26/21 18:32 04/26/21 18:15 61 L 04/26/21 18:00 98 04/26/21 17:45 98 04/26/21 17:30 97 04/26/21 17:15 97 04/26/21 17:00 97 04/26/21 16:45 96 04/26/21 16:30 96 04/26/21 16:15 96 04/26/21 16:01 95 04/26/21 16:00 97 04/26/21 15:45 95 04/26/21 15:30 89 04/26/21 15:15 89 04/26/21 15:00 92 04/26/21 14:45 89 04/26/21 14:30 91 04/26/21 14:15 89 04/26/21 14:00 92 04/26/21 13:45 91 04/26/21 13:30 91 04/26/21 13:15 84 04/26/21 13:00 89 04/26/21 12:45 94 04/26/21 12:31 92 04/26/21 12:15 93 04/26/21 12:01 95 04/26/21 12:00 100 04/26/21 11:45 97 04/26/21 11:31 97 04/26/21 11:15 98 04/26/21 11:00 97 04/26/21 10:45 98 04/26/21 10:30 98 04/26/21 10:15 97 04/26/21 10:00 85 04/26/21 09:45 85 04/26/21 09:30 82 L 04/26/21 09:15 85 04/26/21 09:01 86 04/26/21 08:45 86 04/26/21 08:30 84 04/26/21 08:17 99 04/26/21 08:15 99 04/26/21 08:04 99 04/26/21 08:01 99 04/26/21 08:00 100 04/26/21 07:45 99 04/26/21 07:00 98 04/26/21 06:00 97 04/26/21 05:00 96 04/26/21 04:28 96 04/26/21 04:00 95 04/26/21 03:43 04/26/21 03:00 98 04/26/21 02:00 95 04/26/21 01:00 99 04/26/21 00:36 100 04/26/21 00:00 76 L 04/25/21 23:46 04/25/21 23:00 100 04/25/21 22:00 04/25/21 21:00 98 04/25/21 20:58 95 - Physical Examination General: No Apparent Distress HEENT: Positive: EOMI, Normocephaly, Mucus Membranes Moist Neck: Positive: trachea midline Cardiac: Positive: Reg Rate and Rhythm, S1/S2 Lungs: Positive: clear to auscultation Neuro: Positive: Other (Lethargic) Abdomen: Positive: Soft, Active Bowel Sounds Skin: Negative: Rash Musculoskeletal: No Fluid Collection Extremities: Present: upper extr. pulses. Absent: edema - Labs and Meds Cardiac Enzymes 04/26/21 Range/Units 11:55 AST 5989 H (5-40) units/L CK-MB (CK-2) 7.8 H (0.0-4.0) ng/mL CBC 04/26/21 Range/Units 12:15 WBC 16.8 H (4.5-11.0) K/mm3 RBC 4.10 (3.65-5.03) M/mm3 Hgb 8.7 L (10.1-14.3) gm/dl Hct 32.1 (30.3-42.9) % Plt Count 62 L (140-440) K/mm3 Comprehensive Metabolic Panel 04/26/21 Range/Units 11:55 Sodium 145 (137-145) mmol/L Potassium 6.5 H* (3.6-5.0) mmol/L Chloride 99.1 (98-107) mmol/L Carbon Dioxide 27 (22-30) mmol/L BUN 121 H (7-17) mg/dL Creatinine 4.1 H (0.6-1.2) mg/dL Glucose 280 H (65-100) mg/dL Calcium 8.0 L (8.4-10.2) mg/dL AST 5989 H (5-40) units/L ALT 3144 H (7-56) units/L Alkaline Phosphatase 58 (35-129) units/L Total Protein 8.1 (6.3-8.2) g/dL Albumin 3.3 L (3.9-5) g/dL - Imaging and Cardiology EKG: image reviewed - EKG Sinus rhythms and dysrhythmias: sinus rhythm Repolarization changes or abnormalities: nonspecific abnormality, ST segment, and/or T wave Myocardial infarction: septal DE (old age or ind - Allied health notes Allied health notes reviewed: nursing
--- NOTE | 2021-04-27 11:03 | Electrocardiograph Report ---
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
--- NOTE | 2021-04-28 11:40 | Death Summary ---
Summary - Providers Date of service: 04/26/21 Consults: 04/08/21 Consult to Cardiac Rehabilitation [CONS] Routine Reason For Exam: Phase I 04/08/21 03:00 Consult to Cardiology [CONS] Routine Consulting Provider: FAUSTINO GUTIERREZ Reason For Exam: Non-ST elevation WI 04/08/21 13:32 Occupational Therapy Evaluate and Treat [CONS] Urgent Comment: Reason For Exam: OT to eval and treat Physical Therapy Evaluation and Treat [CONS] Urgent Comment: Reason For Exam: PT to eval and treat 04/09/21 08:53 Consult to Physician [CONS] Routine Comment: Consulting Provider: DIEGO MCKEE Physician Instructions: Reason For Exam: GILBERTO GILBERTO, hyponatremia, hyperkalemia 04/13/21 15:26 Consult to Physician [CONS] Routine Comment: Consulting Provider: KENN MARTIN Physician Instructions: Reason For Exam: HYPOXIC RESPIRATORY FAILURE 04/14/21 07:51 Consult to Physician [CONS] Routine Comment: called office/ sanjay Consulting Provider: WING BLAKELY Physician Instructions: Reason For Exam: transaminitis 04/14/21 11:23 Consult to Physician [CONS] Routine Comment: called office/ sanjay Consulting Provider: JONATAN FERGUSON Physician Instructions: Reason For Exam: abdominal pain with ulcer underneth panus 04/14/21 11:37 Consult to Wound/ET Nurse [CONS] Routine Reason For Exam: wound eval 04/18/21 15:00 Midline [Consult to PICC Line RN] [CONS] Urgent Reason For Exam: need IV access; difficult peripheral stick; thanks Type Line:: Midline 04/20/21 12:34 Consult to Physician [CONS] Routine Comment: Consulting Provider: FARIDA PARR Physician Instructions: Reason For Exam: visual hallucination 04/25/21 13:42 PICC Line Insertion [Consult to PICC Line RN] [CONS] Stat Reason For Exam: central line access for pressors. Type Line:: PICC Attending: YAKOV WALKER - summary Date of admission: 04/08/21 03:00 Date of : 04/26/21 (18: 23) Reason for admission: Acute hypoxic respiratory failure/worsening edema/acute kidney injury Significant findings: 35 years old female patient with significant past medical history of hypertension bronchial asthma, COPD, morbid obesity with BMI of 104.4, obstructive sleep apnea, obesity hypoventilation was admitted through emergency room with worsening shortness of breath, worsening edema, generalized weakness for few days duration. Initial work-up in the emergency room was consistent with acute hypoxic respiratory failure requiring supplemental oxygen, acute kidney injury due to vasomotor nephropathy, worsening edema as well as non-ST elevation WI with chest pain and shortness of breath as well as elevated troponins. Patient was admitted to the hospital evaluated by,Pulmonary, patient was on BiPAP most of the time. Patient was evaluated by computer artist for non-ST elevation WI, medications optimized. Nephrology evaluated, patient had worsening renal function with hyperkalemia medications optimized symptomatically managed, patient's renal function continued to worsen nephrology was considering hemodialysis if no improvement. Patient had severe obstructive sleep apnea and severe obesity hypoventilation syndrome due to her morbid obesity with BMI of 104.4 Patient was critically ill, with acute transaminitis, hypo thyroidism, multiple electrolyte imbalances, chronic anemia, patient continued to deteriorate And on 04/26/2021, in the evening patient had cardiac arrest, CODE BLUE was called, patient was intubated, received CPR per ACLS protocol, could not be revived, patient was pronounced by the covering hospitalist Dr. Levy. Time of 18:23 on 04/26/2021. Please refer to the code sheet for all the details. Patient's family was informed by covering hospitalist Dr. Levy. Time of : 04/26/2021 at 18:23 Discharge diagnosis: --Acute hypoxic respiratory failure Current Visit: Yes Status: Acute --Cardiopulmonary arrest: Current Visit: Yes Status: Acute --Acute on chronic obesity hypoventilation syndrome Current Visit: Yes Status: Acute --History of obstructive sleep apnea Current Visit: Yes Status: Chronic --Morbid obesity BMI 104.4 Current Visit: Yes Status: Chronic --Non-ST elevation WI; Current Visit: Yes Status: Acute Cardiology consulted, evaluated --Severe hyperkalemia; Current Visit: Yes Status: Acute --Acute metabolic encephalopathy; Current Visit: Yes Status: Acute --Hypotension; shock Current Visit: Yes Status: Acute -Acute on chronic hypoxic respiratory failure; requiring BiPAP Current Visit: Yes Status: Acute On BiPAP --Acute exacerbation COPD (chronic obstructive pulmonary disease) Current Visit: Yes Status: Acute Oxygen titrate O2 sats to more than 90%, patient is requiring BiPAP most of the times Patient was intubated post cardiac arrest --hypothyroidism /new onset Current Visit: Yes Status: Acute Continue Synthroid, closely monitor -- Hypoglycemia/present on admission Current Visit: Yes Status: Acute Now resolved closely monitor blood sugars -- Lymphedema of the abdominal wall Due to morbid obesity, supportive care fluid restriction Low-sodium diet --Anemia of chronic disease; Closely monitor H&H, transfuse as needed --Acute transaminitis acute liver failure Acute transaminitis; LFTs trending down Patient . Procedures/treatments rendered: Intubation and mechanical ventilation CPR per ACLS protocol Pertinent studies: Multiple chest x-rays Echocardiogram Pain ultrasound Abdominal ultrasound Lower extremity venous Doppler Disposition: Patient - Final diagnosis (1) Acute and chronic respiratory failure with hypoxia Note: Final diagnosis: (2) Obesity hypoventilation syndrome Note: Final diagnosis: (3) Non-ST elevation (NSTEMI) myocardial infarction Note: Final diagnosis: (4) GILBERTO (acute kidney injury) Note: Final diagnosis: (5) Hyperkalemia Note: Final diagnosis: (6) Acute liver failure Note: Final diagnosis: (7) Acute on chronic diastolic congestive heart failure due to valvular disease Note: Final diagnosis: (8) Acute on chronic diastolic congestive heart failure Note: Final diagnosis: (9) Morbid obesity with BMI of 70 and over, adult Note: Final diagnosis:
== END 2021-04-26 23:23 ==
LOC: ED 21:26 → 4A 04-08 03:00 → IMCU 04-13 20:27 → 4A 04-21 01:07 → CC1 04-24 20:39
PROVIDERS: ADMIT Hospitalist; ATTEND Internal Medicine
PROC: 0BH17EZ Insertion of Endotracheal Airway into Trachea, Via Natural or Artificial Opening (ICD-10-PCS; principal; 2021-04-13)
PROC: 4A033R1 Measurement of Arterial Saturation, Peripheral, Percutaneous Approach (ICD-10-PCS; 2021-04-13)
PROC: 5A09357 Assistance with Respiratory Ventilation, Less than 24 Consecutive Hours, Continuous Positive Airway Pressure (ICD-10-PCS; 2021-04-13)
PROC: 5A09557 Assistance with Respiratory Ventilation, Greater than 96 Consecutive Hours, Continuous Positive Airway Pressure (ICD-10-PCS; 2021-04-15)
PROC: 05H933Z Insertion of Infusion Device into Right Brachial Vein, Percutaneous Approach (ICD-10-PCS; 2021-04-18)
PROC: B54MZZA Ultrasonography of Right Upper Extremity Veins, Guidance (ICD-10-PCS; 2021-04-18)
PROC: 05HY33Z Insertion of Infusion Device into Upper Vein, Percutaneous Approach (ICD-10-PCS; 2021-04-25)
DX: I11.0 Hypertensive heart disease with heart failure (principal); J96.21 Acute and chronic respiratory failure with hypoxia; I21.A1 Myocardial infarction type 2; N17.0 Acute kidney failure with tubular necrosis; G93.41 Metabolic encephalopathy; K72.00 Acute and subacute hepatic failure without coma; I50.33 Acute on chronic diastolic (congestive) heart failure; J96.22 Acute and chronic respiratory failure with hypercapnia; Z68.45 Body mass index [BMI] 70 or greater, adult; E66.2 Morbid (severe) obesity with alveolar hypoventilation; E87.1 Hypo-osmolality and hyponatremia; J44.1 Chronic obstructive pulmonary disease with (acute) exacerbation; E87.0 Hyperosmolality and hypernatremia; Z20.822 Contact with and (suspected) exposure to COVID-19; E87.5 Hyperkalemia; E03.9 Hypothyroidism, unspecified; E16.2 Hypoglycemia, unspecified; I89.0 Lymphedema, not elsewhere classified; E83.51 Hypocalcemia; D63.8 Anemia in other chronic diseases classified elsewhere; R74.01 Elevation of levels of liver transaminase levels; R73.9 Hyperglycemia, unspecified; Z83.3 Family history of diabetes mellitus; Z82.49 Family history of ischemic heart disease and other diseases of the circulatory system; Z71.3 Dietary counseling and surveillance; Z79.899 Other long term (current) drug therapy; Z13.30 Encounter for screening examination for mental health and behavioral disorders, unspecified
CPT/HCPCS: 36415; 36600; 71045; 74018; 76705; 76770; 80048; 80053; 80061; 80076; 82330; 82533; 82550; 82553; 82803; 82805; 82962; 83735; 83880; 83930; 83935; 84100; 84300; 84439; 84443; 84484; 85007; 85014; 85018; 85025; 85027; 85049; 85379; 85610; 85730; 86403; 86706; 86708; 86803; 87040; 87076; 93005; 93308; 93321; 93325; 93970; 94640; 94660; 94760; G0378; C9113; J0171; J0360; J0610; J1170; J1630; J1644; J1815; J1940; J2060; J2405; J2765; J2920; J7030; J7040; J7050; J7070; J7120; J7509; U0003